=== PATIENT | female | born 1930 | race Caucasian/White ===

== ENCOUNTER → 2016-09-27 | Outpatient (CLI) | payer OTHER ==
[~2016-09-27] MED LIST: ALBUAER INH; AMLO-114 PO; AMOX500C3 PO; ASPI81TA28 PO; ATOR10TA88 PO; ATV5 PO; CALC-44 PO; CEFU1TAB36 PO; CLBCRM30 EXT; CLR10 PO; FERR1TAB13 PO; FERR325T5; FLUT0.15 NAE; FLUT1INH INH; FRRS300 PO; KETO0.0216 OP; KETO0.0216 OPB; LIDO2GEL8 TOP; LORA10TA5 PO; MCRK20 PO; METR0.757 PV; MTHH1 PO; OMEP20CA9 PO; PENT100C6 PO; PHEN-876 PO; PYRI100T4 PO; PYRI50TA77 PO; SIMV10TA2 PO; SPIR25TA PO; TELM80TA PO; TRAM-10 PO; ULT50X PO; VNTHFA/IN INH; ZNTT/150 PO; [UNRECOGNIZED DRUG - CODE] TOP; [UNRECOGNIZED DRUG - OTHER] TOP
--- NOTE | 2016-09-27 11:25 | DIAGNOSTIC IMAGING REPORT ---
ABDOMINAL ULTRASOUND, RIGHT UPPER QUADRANT HISTORY: Generalized abdominal pain.. COMPARISON: Abdominal ultrasound 12/23/2012. Abdomen and pelvis CT 08/20/2012. FINDINGS: Pancreas: The pancreatic head is obscured by overlying bowel gas. The remaining portions of the pancreas are within normal limits. Liver: There are 2 subcentimeter cysts, unchanged. No new hepatic masses. Gallbladder: No gallbladder wall thickening. No gallstones. CBD: 4 mm. Right kidney: No hydronephrosis. Peripelvic cysts are again noted. IMPRESSION: No significant change compared to the prior study. Normal gallbladder. No gallstones. Electronically signed by: Ken Griggs M.D. 09/27/2016 11:23 AM Dictated Date/Time: 09/27/2016 11:20 AM
== END | disposition home or self-care (01) ==
LOC: C.ULTR 10:17
PROVIDERS: ATTEND Nurse Practitioner
DX: R10.11 Right upper quadrant pain (principal)

== ENCOUNTER → 2016-10-17 | Outpatient (CLI) | payer OTHER ==
[2016-10-17 12:46] LABS: BLOOD UREA NITROGEN 16 mg/dl (7-18); BUN/CREATININE RATIO 18.6 (10-20); CALCIUM 8.7 mg/dl (8.5-10.1); CARBON DIOXIDE 28 mmol/L (21-32); CHLORIDE 106 mmol/L (98-107); CHOLESTEROL 148 mg/dl (0-200); CREATININE 0.88 mg/dl (0.60-1.20); GLUCOSE 94 mg/dl (70-99); POTASSIUM 4.2 mmol/L (3.5-5.1); SODIUM 141 mmol/L (136-145)
[2016-10-17 12:49] LABS: CHOLESTEROL/HDL RATIO 3.1; HDL CHOLESTEROL 48 mg/dl; LDL CHOLESTEROL CALCULATED 80 mg/dl; TRIGLYCERIDES 101 mg/dl (0-150); VERY LOW DENSITY LIPOPROT CALC 20 mg/dl
[2016-10-17 13:55] LABS: ESTIMATED AVERAGE GLUCOSE 120 mg/dl; HA1C FLAG Normal (Normal)
== END | disposition home or self-care (01) ==
LOC: C.LABBFT 08:35
PROVIDERS: ATTEND Internal Medicine
DX: I10 Essential (primary) hypertension (principal); E78.00 Pure hypercholesterolemia, unspecified; R73.01 Impaired fasting glucose

== ENCOUNTER → 2016-10-29 | Day surgery (SDC) | payer OTHER ==
[2016-10-22 09:01] VITALS: BMI 24.0
[~2016-10-29] VITALS: Ht 160 cm; Wt 63.6 kg
[~2016-10-29] MED LIST changes: +ENDOSCOPIC MARKER 5 ML SYR ONE; +LIDOCAINE HCL 2% 2 ML VIAL (20MG/ML) ONE; -LORA10TA5 PO; +PROPOFOL IV EMULSION 10 MG/ML 20 ML VIAL IV ONE; +SODIUM CHLORIDE 0.9% 500ML 500 ML IV ONE
[2016-10-29 12:16] VITALS: Ht 160 cm; Wt 63.6 kg
[2016-10-29 12:28] VITALS: TEMP 36.6
--- NOTE | 2016-10-29 13:02 | Endo History and Physical ---
History & Physical Date of Service: Oct 29, 2016. Chief Complaint: COLON MASS Referring Physician: DR. CHARLENE COLON History of Present Illness 86 yo CF who presents for colonoscopy secondary to colon mass. Past Medical History Arthritis, Reflux, Cancer, High Cholesterol, Hypertension Past Surgical History Hx Cardiac Surgery: No Hx Internal Defibrillator: No Hx Pacemaker: No Hx Abdominal Surgery: Yes (CYST REMOVAL FROM UTERUS) Hx of Implantable Prosthesis: No Hx Post-Op Nausea and Vomiting: No Hx Cancer Surgery: Yes (SKIN CANCER REMOVAL) Hx Thoracic Surgery: No Hx Orthopedic: No Hx Urinary Tract Surgery: No Family History Polyp Social History Smoking Status: Never Smoker Hx Substance Use: No Hx Alcohol Use: No Allergies Coded Allergies: Diltiazem (Verified Allergy, Severe, TIGHTENING OF THROAT, 10/22/16) Hydralazine (Verified Allergy, Intermediate, RASH, 10/22/16) Azithromycin (Verified Allergy, Mild, PT UNSURE, 10/22/16) Hydrocodone (Verified Allergy, Mild, GI UPSET, 10/22/16) Meperidine (Verified Allergy, Mild, GI UPSET, 10/22/16) Prochlorperazine (Verified Allergy, Mild, "BODY SHAKES", 10/22/16) Acetaminophen (Verified Allergy, Unknown, GI SYMPTOMS, 10/29/16) Ciprofloxacin (Verified Allergy, Unknown, GI SYMPTOMS, 10/29/16) Hydrochlorothiazide (Verified Allergy, Unknown, DYSURIA, 10/22/16) Losartan (Verified Allergy, Unknown, JITTERY,SJAKEY, 10/22/16) Nifedipine (Verified Allergy, Unknown, EXACERBATION INTERSTITIAL CYCSTITIS , 10/22/16) Nitrofurantoin (Verified Allergy, Unknown, RASH, 10/22/16) Quinine (Verified Allergy, Unknown, PT UNSURE, 10/22/16) Sulfa Drugs (Verified Allergy, Unknown, PT UNSURE, 10/22/16) Terazosin (Verified Allergy, Unknown, LIGHTHEADEDNESS AND NAUSEA, 10/22/16) Quinolones (Verified Adverse Reaction, Intermediate, CIPRO- NAUSEA, NERVOUS, CHILLS, 10/22/16) Metronidazole (Verified Adverse Reaction, Mild, STOMACH PAIN, 10/22/16) Simvastatin (Verified Adverse Reaction, Mild, STOMACH PAIN, 10/22/16) Beta Adrenergic Blockers (Verified Adverse Reaction, Unknown, "Secondary AVB", 10/22/16) Lisinopril (Verified Adverse Reaction, Unknown, "INTOLERANCE" PER DR COLON, 10/22/16) Methenamine (Verified Adverse Reaction, Unknown, STOMACH PAIN, 10/22/16) Phenothiazines (Verified Adverse Reaction, Unknown, SHAKEY, 10/22/16) Valdecoxib (Verified Adverse Reaction, Unknown, GI SYMPTOMS, 10/22/16) Uncoded Allergies: METHENAMIN HIPPURATE (Allergy, Unknown, GI SYMPTOMS, 09/05/15) Current Medications Reported Home Medications Medications Dose Route/Sig Max Daily Dose Days Date Category Zantac (Ranitidine HCl) 150 Mg Tab 150 Mg PO DAILY PRN 10/22/16 Reported Aspirin Ec (Aspirin) 81 Mg Tab 81 Mg PO 3XWK 10/22/16 Reported Proventil Hfa (Albuterol Sulfate) 108 Mcg/Act Aer 2 Puffs INH QID PRN 10/22/16 Reported Breo Ellipta (Fluticasone Furoate-Vilanterol) 1 Inh Inh 1 Puff INH DAILY PRN 10/22/16 Reported Metronidazole Vaginal (Metronidazole HCl) 5 Appln/70 Gm Gel 1 Appl TOP QAM 10/22/16 Reported Prelief (Calcium Glycerophosphate) 1 Tab Tab 1 Tab PO UD 10/22/16 Reported Claritin (Loratadine) 10 Mg Tab 10 Mg PO DAILY PRN 10/22/16 Reported Aldactone (Spironolactone) 25 Mg Tab 25 Mg PO QAM 10/22/16 Reported Zaditor 0.025% Oph (Ketotifen Fumarate) Soln 1 Drop OPB HS 09/01/15 Reported Clobetasol Propionate Cream 0.05% (Clobetasol Propionate) 90 Appln/30 Gm Cr 1 Appln EXT HS 09/01/15 Reported Vitamin B 6 (Pyridoxine Hcl) 50 Mg Tab 1 Tab PO QPM 09/01/15 Reported Prilosec (Omeprazole) 20 Mg Cap 20 Mg PO QAM 05/08/15 Reported Norvasc (Amlodipine Besylate) 10 Mg Tab 10 Mg PO QAM 05/08/15 Reported Elmiron (Pentosan Polysulfate Sodium) 100 Mg Cap 100 Mg PO BID 05/08/15 Reported Lipitor (Atorvastatin Calcium) 10 Mg Tab 10 Mg PO HS 08/20/12 Reported Micardis (Telmisartan) 80 Mg Tab 80 Mg PO QAM 08/20/12 Reported Vital Signs Weight (Kilograms): 63.64 Height (Feet): 5 Height (Inches): 3 Date Time Temp Pulse Resp B/P Pulse Ox O2 Delivery O2 Flow Rate FiO2 10/29/16 12:28 36.6 79 16 188/65 98 Room Air Physical Exam General Appearance: WD/WN, no apparent distress Respiratory/Chest: Auscultation: breath sounds normal Cardiovascular: Heart Auscultation: RRR Abdomen: Bowel Sounds: normal Inspection & Palpation: soft, non-distended, no tenderness, guarding & rebound Assessment and Plan Assessment: 86 yo CF who presents for colonoscopy secondary to colon mass. Plan: Proceed with colonoscopy.
--- NOTE | 2016-10-29 13:32 | Discharge Instructions ---
Endoscopy Patient Instructions Date / Procedure(s) Performed Oct 29, 2016. Colonoscopy Allergy Information Coded Allergies: Diltiazem (Verified Allergy, Severe, TIGHTENING OF THROAT, 10/22/16) Hydralazine (Verified Allergy, Intermediate, RASH, 10/22/16) Azithromycin (Verified Allergy, Mild, PT UNSURE, 10/22/16) Hydrocodone (Verified Allergy, Mild, GI UPSET, 10/22/16) Meperidine (Verified Allergy, Mild, GI UPSET, 10/22/16) Prochlorperazine (Verified Allergy, Mild, "BODY SHAKES", 10/22/16) Acetaminophen (Verified Allergy, Unknown, GI SYMPTOMS, 10/29/16) Ciprofloxacin (Verified Allergy, Unknown, GI SYMPTOMS, 10/29/16) Hydrochlorothiazide (Verified Allergy, Unknown, DYSURIA, 10/22/16) Losartan (Verified Allergy, Unknown, JITTERY,SJAKEY, 10/22/16) Nifedipine (Verified Allergy, Unknown, EXACERBATION INTERSTITIAL CYCSTITIS , 10/22/16) Nitrofurantoin (Verified Allergy, Unknown, RASH, 10/22/16) Quinine (Verified Allergy, Unknown, PT UNSURE, 10/22/16) Sulfa Drugs (Verified Allergy, Unknown, PT UNSURE, 10/22/16) Terazosin (Verified Allergy, Unknown, LIGHTHEADEDNESS AND NAUSEA, 10/22/16) Quinolones (Verified Adverse Reaction, Intermediate, CIPRO- NAUSEA, NERVOUS, CHILLS, 10/22/16) Metronidazole (Verified Adverse Reaction, Mild, STOMACH PAIN, 10/22/16) Simvastatin (Verified Adverse Reaction, Mild, STOMACH PAIN, 10/22/16) Beta Adrenergic Blockers (Verified Adverse Reaction, Unknown, "Secondary AVB", 10/22/16) Lisinopril (Verified Adverse Reaction, Unknown, "INTOLERANCE" PER DR COLON, 10/22/16) Methenamine (Verified Adverse Reaction, Unknown, STOMACH PAIN, 10/22/16) Phenothiazines (Verified Adverse Reaction, Unknown, SHAKEY, 10/22/16) Valdecoxib (Verified Adverse Reaction, Unknown, GI SYMPTOMS, 10/22/16) Uncoded Allergies: METHENAMIN HIPPURATE (Allergy, Unknown, GI SYMPTOMS, 09/05/15) Discharge Date / Findings Oct 29, 2016. Colon mass at Hepatic flexure s/p tattoo and biopsies Medication Instructions Stopped Medication(s): STOPPED ALL MEDICATIONS EXCEPT PRILOSEC AND 2 BLOOD PRESSURE MEDICATIONS. OK to resume all medications today as prescribed. Reported Home Medications Medications Dose Route/Sig Max Daily Dose Days Date Category Zantac (Ranitidine HCl) 150 Mg Tab 150 Mg PO DAILY PRN 10/22/16 Reported Aspirin Ec (Aspirin) 81 Mg Tab 81 Mg PO 3XWK 10/22/16 Reported Proventil Hfa (Albuterol Sulfate) 108 Mcg/Act Aer 2 Puffs INH QID PRN 10/22/16 Reported Breo Ellipta (Fluticasone Furoate-Vilanterol) 1 Inh Inh 1 Puff INH DAILY PRN 10/22/16 Reported Metronidazole Vaginal (Metronidazole HCl) 5 Appln/70 Gm Gel 1 Appl TOP QAM 10/22/16 Reported Prelief (Calcium Glycerophosphate) 1 Tab Tab 1 Tab PO UD 10/22/16 Reported Claritin (Loratadine) 10 Mg Tab 10 Mg PO DAILY PRN 10/22/16 Reported Aldactone (Spironolactone) 25 Mg Tab 25 Mg PO QAM 10/22/16 Reported Zaditor 0.025% Oph (Ketotifen Fumarate) Soln 1 Drop OPB HS 09/01/15 Reported Clobetasol Propionate Cream 0.05% (Clobetasol Propionate) 90 Appln/30 Gm Cr 1 Appln EXT HS 09/01/15 Reported Vitamin B 6 (Pyridoxine Hcl) 50 Mg Tab 1 Tab PO QPM 09/01/15 Reported Prilosec (Omeprazole) 20 Mg Cap 20 Mg PO QAM 05/08/15 Reported Norvasc (Amlodipine Besylate) 10 Mg Tab 10 Mg PO QAM 05/08/15 Reported Elmiron (Pentosan Polysulfate Sodium) 100 Mg Cap 100 Mg PO BID 05/08/15 Reported Lipitor (Atorvastatin Calcium) 10 Mg Tab 10 Mg PO HS 08/20/12 Reported Micardis (Telmisartan) 80 Mg Tab 80 Mg PO QAM 08/20/12 Reported Provider Instructions Activity Restrictions - No exercising or heavy lifting for 24 hours. - Do not drink alcohol the day of the procedure. - Do not drive a car or operate machinery until the day after the procedure. - Do not make any important decisions or sign important papers in 24 hours after the procedure. Following Day: - Return to full activity which may include returning to work/school. Diet Start your diet with liquids and light foods (jello, soup, juice, toast). Then eat your usual diet if not nauseated. Treatment For Common After Affects For mild abdominal pain, bloating, or excessive gas: - Rest - Eat lightly - Lie on right side Follow-Up Information Follow-up with DR. CHARLENE COLON as scheduled Anesthesia Information What You Should Know You have had a procedure that required some medicine to reduce anxiety and discomfort. This treatment is called moderate sedation. After receiving the treatment, you may be sleepy, but you will be able to breathe on your own. The effects of the treatment may last for several hours. Follow these instructions along with Activity/Diet recommendations noted above: * Do NOT do anything where dizziness or clumsiness would be dangerous. * Rest quietly at home today, then you can be up and about tomorrow. * Have a responsible person stay with you the rest of today. * You may have had an I.V. today. If so, you may take the dressing off later today. Recommendations Call your doctor if: * Trouble breathing * Continuous vomiting for more than 24 hours * Temperature above 101 degrees * Severe abdominal pain or bloating * Pain not relieved by pain medicine ordered * There is increased drainage or redness from any incision * A large amount of rectal bleeding greater than 2-3 tablespoons. (If you had a polyp/s removed or have hemorrhoids, a small amount of blood - from the rectum is to be expected.) * You have any unanswered questions or concerns. IN THE EVENT OF A SERIOUS EMERGENCY, GO TO THE NEAREST EMERGENCY ROOM Your discharge instructions were prepared by provider Jose Farias. Patient Instructions Signature Page Kadie Dean Patient (or Guardian) Signature/Date: I have read and understand the instructions given to me by my caregivers. Caregiver/RN/Doctor Signature/Date: The above-named patient and/or guardian has received patient instructions on this date. + Original Patient Signature Page (only) stays with chart. Please make copy for patient.
--- NOTE | 2016-10-29 13:41 | GI REPORT ---
Procedure Date: 10/29/2016 1:02 PM Procedure: Colonoscopy Indications: Abnormal CT of the GI tract Medicines: Monitored Anesthesia Care Complications: No immediate complications. Estimated Blood Loss: Estimated blood loss: none. Procedure: Pre-Anesthesia Assessment: - Prior to the procedure, a History and Physical was performed, and patient medications and allergies were reviewed. The patient's tolerance of previous anesthesia was also reviewed. The risks and benefits of the procedure and the sedation options and risks were discussed with the patient. All questions were answered, and informed consent was obtained. Prior Anticoagulants: The patient has taken aspirin, last dose was 7 days prior to procedure. ASA Grade Assessment: II - A patient with mild systemic disease. After reviewing the risks and benefits, the patient was deemed in satisfactory condition to undergo the procedure. After I obtained informed consent, the scope was passed under direct vision. Throughout the procedure, the patient's blood pressure, pulse, and oxygen saturations were monitored continuously. The scope was introduced through the anus and advanced to the terminal ileum. The colonoscopy was performed without difficulty. The patient tolerated the procedure well. The quality of the bowel preparation was good. The ileocecal valve, appendiceal orifice, and rectum were photographed. Findings: An infiltrative non-obstructing large mass was found at the hepatic flexure. The mass was circumferential. The mass measured six cm in length. In addition, its diameter measured twenty-five mm. Oozing was present. Biopsies were taken with a cold forceps for histology. Area was tattooed with an injection of 5 mL of Poppy ink. Non-bleeding internal hemorrhoids were found during retroflexion. The hemorrhoids were small. 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 Biopsied. Tattooed. - Non-bleeding internal hemorrhoids. Recommendation: - Resume previous diet. - Continue present medications. - Return to primary care physician as previously scheduled. Jose Farias, DO 10/29/2016 1:40:47 PM This report has been signed electronically. Note Initiated On: 10/29/2016 1:02 PM I attest to the content of the Intraoperative Record and orders documented therein, exceptions below
[2016-10-29 14:01] VITALS: BP 163/69; PULSE 82; O2SAT 99
--- NOTE | 2016-10-29 14:01 | Anesthesiology Progress Note ---
Anesthesia Post Op Note Date & Time Oct 29, 2016 at 14:01 Vital Signs Pain Intensity: 0 Vital Signs Past 12 Hours Date Time Temp Pulse Resp B/P Pulse Ox O2 Delivery O2 Flow Rate FiO2 10/29/16 13:47 71 16 103/51 100 Room Air 10/29/16 13:36 77 16 115/47 98 Room Air 10/29/16 12:28 36.6 79 16 188/65 98 Room Air Notes Mental Status: alert / awake / arousable, participated in evaluation Pt Amnestic to Procedure: Yes Nausea / Vomiting: adequately controlled Pain: adequately controlled Airway Patency, RR, SpO2: stable & adequate BP & HR: stable & adequate Hydration State: stable & adequate Anesthetic Complications: no major complications apparent
== END | disposition home or self-care (01) ==
LOC: C.GI 11:52
PROVIDERS: ATTEND Internal Medicine
DX: D49.0 Neoplasm of unspecified behavior of digestive system (principal); K64.8 Other hemorrhoids; K21.9 Gastro-esophageal reflux disease without esophagitis; E78.00 Pure hypercholesterolemia, unspecified; I10 Essential (primary) hypertension; M19.90 Unspecified osteoarthritis, unspecified site; Z88.2 Allergy status to sulfonamides; Z85.828 Personal history of other malignant neoplasm of skin; Z83.71 Family history of colonic polyps

== ENCOUNTER → 2016-11-07 | Outpatient (CLI) | payer OTHER ==
[~2016-11-07] MED LIST changes: -ENDOSCOPIC MARKER 5 ML SYR ONE; -LIDOCAINE HCL 2% 2 ML VIAL (20MG/ML) ONE; -PROPOFOL IV EMULSION 10 MG/ML 20 ML VIAL IV ONE; -SODIUM CHLORIDE 0.9% 500ML 500 ML IV ONE
== END | disposition home or self-care (01) ==
LOC: C.LABBFT 11:38
PROVIDERS: ATTEND Nurse Practitioner Adult Health
DX: J32.9 Chronic sinusitis, unspecified (principal); R39.9 Unspecified symptoms and signs involving the genitourinary system

== ENCOUNTER → 2016-11-09 | Outpatient (CLI) | payer OTHER | END | disposition home or self-care (01) | LOC: C.LABBFT 11:55 | PROVIDERS: ATTEND Nurse Practitioner Family | DX: N39.0 Urinary tract infection, site not specified (principal); R30.0 Dysuria ==

== ENCOUNTER 2016-11-14 10:07 | Emergency (ER) | payer OTHER ==
[~2016-11-14] VITALS: Ht 165.1 cm; Wt 62.3 kg
[~2016-11-14 10:07] MED LIST changes: -AMLO-114 PO; -AMOX500C3 PO; -ATOR10TA88 PO; -ATV5 PO; -CALC-44 PO; -CEFU1TAB36 PO; -CLBCRM30 EXT; -CLR10 PO; -FERR1TAB13 PO; -FERR325T5; -FLUT0.15 NAE; -FLUT1INH INH; -FRRS300 PO; -KETO0.0216 OP; -LIDO2GEL8 TOP; -MCRK20 PO; -METR0.757 PV; -MTHH1 PO; -OMEP20CA9 PO; -PENT100C6 PO; -PHEN-876 PO; -PYRI100T4 PO; -PYRI50TA77 PO; -SIMV10TA2 PO; -TELM80TA PO; -TRAM-10 PO; -ULT50X PO; -VNTHFA/IN INH; -[UNRECOGNIZED DRUG - CODE] TOP
[2016-11-14 10:20] VITALS: TEMP 36.9; Ht 165.1 cm; Wt 62.3 kg
--- NOTE | 2016-11-14 11:03 | EMERGENCY ROOM VISIT NOTE ---
History Report prepared by Jeremy: Mi Eastman Under the Supervision of: Dr. Tabatha Tripp M.D. 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 Her discomfort is a 9/10 in severity. She states that she has burning when she is and is not urinating. She states that it also feels raw. She feels that she may have a vaginal infection. Denies fever, vaginal discharge, or other complaints. She does have an appointment with Dr. Mallory of gynecology on Saturday , but wanted treatment sooner. She has a history of lichen planus for which she uses topical cream. 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 A total of 10 systems reviewed and were otherwise negative. Past Medical & Surgical Medical Problems: (1) HTN (hypertension) Surgical Problems: (1) Hx of cervical polypectomy Family History FHx: cancer Hypertension Social History Smoking Status: Never Smoker Alcohol Use: none Drug Use: none Marital Status: Housing Status: lives with significant other Occupation Status: retired Current/Historical Medications Scheduled Amlodipine (Norvasc), 10 MG PO QAM Atorvastatin (Lipitor), 10 MG PO HS Calcium Glycerophosphate (Prelief), 1 TAB PO UD Clobetasol Propionate (Clobetasol Propionate Cream 0.05%), 1 APPLN EXT HS Ketotifen Fumarate (Ophth) (Zaditor 0.025% Oph), 1 DROP OP Q12H Omeprazole (Prilosec), 20 MG PO QAM Pentosan Polysulfate Sodium (Elmiron), 100 MG PO BID Pyridoxine Hcl (Vitamin B 6), 1 TAB PO QPM Telmisartan (Micardis), 80 MG PO QAM Scheduled PRN Fluticasone Furoate-Vilanterol (Breo Ellipta), 1 PUFF INH DAILY PRN for Shortness of Breath Lidocaine Hcl (Lidocaine Hcl), 1 APPLN TOP BID PRN for Itching Loratadine (Claritin), 10 MG PO DAILY PRN for PRN Allergies Coded Allergies: Diltiazem (Verified Allergy, Severe, TIGHTENING OF THROAT, 11/14/16) Hydralazine (Verified Allergy, Intermediate, RASH, 11/14/16) Azithromycin (Verified Allergy, Mild, PT UNSURE, 11/14/16) Hydrocodone (Verified Allergy, Mild, GI UPSET, 11/14/16) Meperidine (Verified Allergy, Mild, GI UPSET, 11/14/16) Prochlorperazine (Verified Allergy, Mild, "BODY SHAKES", 11/14/16) Acetaminophen (Verified Allergy, Unknown, GI SYMPTOMS, 11/14/16) Ciprofloxacin (Verified Allergy, Unknown, GI SYMPTOMS, 11/14/16) Hydrochlorothiazide (Verified Allergy, Unknown, DYSURIA, 11/14/16) Losartan (Verified Allergy, Unknown, JITTERY,SJAKEY, 11/14/16) Nifedipine (Verified Allergy, Unknown, EXACERBATION INTERSTITIAL CYCSTITIS , 11/14/16) Nitrofurantoin (Verified Allergy, Unknown, RASH, 11/14/16) Quinine (Verified Allergy, Unknown, PT UNSURE, 11/14/16) Spironolactone (Verified Allergy, Unknown, ., 11/14/16) Sulfa Drugs (Verified Allergy, Unknown, PT UNSURE, 11/14/16) Terazosin (Verified Allergy, Unknown, LIGHTHEADEDNESS AND NAUSEA, 11/14/16) Quinolones (Verified Adverse Reaction, Intermediate, CIPRO- NAUSEA, NERVOUS, CHILLS, 11/14/16) Metronidazole (Verified Adverse Reaction, Mild, STOMACH PAIN, 11/14/16) Simvastatin (Verified Adverse Reaction, Mild, STOMACH PAIN, 11/14/16) Beta Adrenergic Blockers (Verified Adverse Reaction, Unknown, "Secondary AVB", 11/14/16) Lisinopril (Verified Adverse Reaction, Unknown, "INTOLERANCE" PER DR COLON, 11/14/16) Methenamine (Verified Adverse Reaction, Unknown, STOMACH PAIN, 11/14/16) Phenothiazines (Verified Adverse Reaction, Unknown, SHAKEY, 11/14/16) Valdecoxib (Verified Adverse Reaction, Unknown, GI SYMPTOMS, 11/14/16) Physical Exam Vital Signs Date Time Temp Pulse Resp B/P Pulse Ox O2 Delivery O2 Flow Rate FiO2 11/14/16 12:23 87 16 130/69 97 11/14/16 11:56 87 16 130/69 97 11/14/16 10:20 36.9 95 18 161/70 96 Room Air Physical Exam Vital signs reviewed. General: Elderly, well-appearing 86 year old female, in no significant distress. HEENT: No scleral icterus, PERRLA, neck supple. Atraumatic. Cardiovascular: Regular rate and rhythm, no extra sounds. Pulmonary: Clear to auscultation bilaterally, normal work of breathing. Abdomen: Soft, nontender, nondistended, positive bowel sounds. Pelvic: Dry vaginal wall, no excoriations or ulcerations appreciated, appreciable white adherent discharge with clear lotion visualized. Musculoskeletal: Atraumatic, no peripheral edema. Neurologic: Patient awake alert and oriented x 3 Skin: Warm, dry, no rash Medical Decision & Procedures Laboratory Results Test 11/14/16 10:25 Urine Color YELLOW Urine Appearance CLEAR (CLEAR) Urine pH 5.0 (4.5-7.5) Urine Specific [place] 1.015 (1.000-1.030) Urine Protein NEG (NEG) Urine Glucose (UA) NEG (NEG) Urine Ketones NEG (NEG) Urine Occult Blood 1+ (NEG) Urine Nitrite NEG (NEG) Urine Bilirubin NEG (NEG) Urine Urobilinogen NEG (NEG) Urine Leukocyte Esterase TRACE (NEG) Urine WBC (Auto) 1-5 /hpf (0-5) Urine RBC (Auto) 0-4 /hpf (0-4) Urine Hyaline Casts (Auto) 1-5 /lpf (0-5) Urine Epithelial Cells (Auto) 20-30 /lpf (0-5) Urine Bacteria (Auto) NEG (NEG) Date/Time Source Procedure Growth Status 11/14/16 11:35 Vaginal Swab Trichomonas Preparation - Final Complete Laboratory results per my review. ED Course 1057: The patient was evaluated in room A10. A complete history and physical examination was performed. 1146: I discussed the case with Dr. Anderson - [facility] [place] Intermediate Project Manager. She requested stopping the patient's current medications and starting her on lidocaine jelly. 1151: Upon reevaluation, the patient was comfortable. I discussed findings with her. She verbalized agreement of the treatment plan. The patient was discharged home. Medical Decision Differentials include yeast vaginitis, atrophic vaginitis, steroid dermatitis, allergic reaction. This patient was evaluated and appeared to be in no significant distress. Physical examination reveals an irritated vaginal wall. There is a white chunky material and a clear gel in the vaginal vault. The patient has been using 2 different topical medications daily. Vaginal swabs were obtained. I did discuss the case with Dr. Anderson of CLINICAL ANALYST. She has suggested stopping the current treatments, one being a steroid, and using lidocaine gel twice a day as needed. Lab called and stated there were many yeast cells noted on the vaginal cultures. The patient was placed on Terazol 7. She will follow-up with CLINICAL ANALYST next week for reevaluation. She will return to the ER for worsening of symptoms or any medical concerns. Consults Time Called: 1140 Consulting Physician: Dr. Anderson - [facility] [place] Intermediate Project Manager Returned Call: [phone] I discussed the case with her. She requested stopping the patient's current medications and starting her on lidocaine jelly. Impression Primary Impression: Yeast vaginitis Additional Impression: Vaginal irritation Scribe Attestation The scribe's documentation has been prepared under my direction and personally reviewed by me in its entirety. I confirm that the note above accurately reflects all work, treatment, procedures, and medical decision making performed by me. Departure Information Dispostion Home / Self-Care Prescriptions Lidocaine Hcl (LIDOCAINE HCL) 2 % Gel 1 APPLN TOP BID Y for Itching, #15 GM 0 Refills Prov: Tabatha Tripp M.D. 11/14/16 Referrals No Doctor, Assigned (PCP) Patient Instructions My [facility] Additional Instructions Diagnosis: Vaginal irritation Please stop your topical medications. Use [place] lubricating ointment twice daily. Use lidocaine jelly (pea sized amount) topically as needed twice daily. Follow-up with Dr. Mallory on Saturday as scheduled. Return to the emergency department for worsening of symptoms or any medical concerns. Problem Qualifiers
[2016-11-14 11:25] LABS: URINE APPEARANCE CLEAR (CLEAR); URINE BILIRUBIN NEG (NEG); URINE COLOR YELLOW; URINE EPITHELIAL CELL AUTO 20-30 /lpf (0-5); URINE NITRITE NEG (NEG); URINE SPECIFIC GRAVITY 1.015 (1.000-1.030); UROBILINOGEN NEG (NEG); ZZUR CULT IF INDIC CLEAN CATCH NO
[2016-11-14 11:29] LABS: MANUAL MICROSCOPIC REQUIRED? NO; REVIEW REQ? NO
[2016-11-14] MEDS ORDERED: LIDO2GEL8 TOP (12:14)
[2016-11-14 12:23] VITALS: BP 130/69; PULSE 87; O2SAT 97
--- NOTE | 2016-11-14 15:49 | Pharmacy Progress Note ---
ED Pharmacist Progress Note Date of Service: Nov 14, 2016. Prescription for Terazol-7 0.4% vaginal cream 1 applicatorful intravaginally qhs x7 days called to [facility] at the request of Dr. Tripp, who is the prescribing provider. Patient informed and aware.
[2016-12-01] MEDS ORDERED: TELM80TA PO (04:49)
[2016-12-01] MEDS ORDERED: ATOR10TA88 PO (04:50)
[2016-12-01] MEDS ORDERED: CLBCRM30 EXT (08:05)
[2016-12-01] MEDS ORDERED: PYRI50TA77 PO (08:05)
[2016-12-01] MEDS ORDERED: CLR10 PO (08:57)
[2016-12-01] MEDS ORDERED: CALC-44 PO (08:57)
[2016-12-01] MEDS ORDERED: FLUT1INH INH (08:57)
[2016-12-01] MEDS ORDERED: KETO0.0216 OP (10:58)
[2016-12-01] MEDS ORDERED: AMLO-114 PO (14:33)
[2016-12-01] MEDS ORDERED: OMEP20CA9 PO (14:33)
[2016-12-01] MEDS ORDERED: PENT100C6 PO (14:33)
[2016-12-06] MEDS ORDERED: CEFU1TAB36 PO (15:24)
[2016-12-06] MEDS ORDERED: PENT100C6 PO (15:29)
[2016-12-06] MEDS ORDERED: CALC-44 PO (15:29)
[2016-12-06] MEDS ORDERED: PYRI100T4 PO (15:29)
[2016-12-06] MEDS ORDERED: FLUT0.15 NAE (15:29)
[2016-12-06] MEDS ORDERED: CLR10 PO (15:31)
[2017-01-16] MEDS ORDERED: SIMV10TA2 PO (10:10)
[2017-01-16] MEDS ORDERED: TRAM-10 PO (10:14)
[2017-04-29] MEDS ORDERED: CLR10 PO (12:55)
[2017-04-29] MEDS ORDERED: PHEN-876 PO (12:55)
[2017-04-29] MEDS ORDERED: PENT100C6 PO (12:55)
[2017-04-29] MEDS ORDERED: ATOR10TA88 PO (12:55)
[2017-04-29] MEDS ORDERED: FERR1TAB13 PO (12:55)
[2017-04-29] MEDS ORDERED: MTHH1 PO (12:55)
== END 2016-11-14 12:30 | disposition home or self-care (01) ==
LOC: C.EDB 10:09 → C.EDA 12:30
DX: N76.0 Acute vaginitis (principal); N89.8 Other specified noninflammatory disorders of vagina; I10 Essential (primary) hypertension; Z82.49 Family history of ischemic heart disease and other diseases of the circulatory system

== ENCOUNTER 2016-12-01 20:57 | Emergency (ER) | payer OTHER ==
[~2016-12-01] VITALS: Ht 160 cm; Wt 63.5 kg
[~2016-12-01 20:57] MED LIST changes: -ALBUAER INH; +AMLO-114 PO; -ASPI81TA28 PO; +ATOR10TA88 PO; +CALC-44 PO; +CLBCRM30 EXT; +CLR10 PO; +FLUT1INH INH; +KETO0.0216 OP; -KETO0.0216 OPB; +LIDO2GEL8 TOP; +OMEP20CA9 PO; +PENT100C6 PO; +PYRI50TA77 PO; -SPIR25TA PO; +TELM80TA PO; -ZNTT/150 PO; -[UNRECOGNIZED DRUG - OTHER] TOP
[2016-12-01 21:01] VITALS: TEMP 37.4; Ht 160 cm; Wt 63.5 kg
[2016-12-01 22:19] LABS: URINE APPEARANCE CLEAR (CLEAR); URINE BILIRUBIN NEG (NEG); URINE COLOR DK YELLOW; URINE NITRITE POS (NEG); URINE PH 5.5 (4.5-7.5); UROBILINOGEN NEG (NEG); ZZUR CULT IF INDIC CLEAN CATCH NO
[2016-12-01 22:25] LABS: MANUAL MICROSCOPIC REQUIRED? YES; REVIEW REQ? NO
[2016-12-01 22:36] LABS: URINE BACTERIA NEG (NEG); URINE RBC 0-4 /hpf (0-4)
[2016-12-01] MEDS ORDERED: VNTHFA/IN INH (22:48)
[2016-12-01] MEDS ORDERED: [UNRECOGNIZED DRUG - CODE] TOP (22:48)
[2016-12-01 23:03] VITALS: BP 136/64; PULSE 83; O2SAT 95
[2016-12-01] MEDS ORDERED: AMOXICILLIN 250 MG CAP PO STA (23:07)
[2016-12-01] MEDS ORDERED: AMOX500C3 PO (23:19)
--- NOTE | 2016-12-01 23:24 | EMERGENCY ROOM VISIT NOTE ---
History Report prepared by Jeremy: Darian Snider Under the Supervision of: Dr. Lavelle Corrigan D.O. First contact with patient: 21:46 Chief Complaint: URINARY SYMPTOMS Stated Complaint: BRUNING HIGH TEMP Nursing Triage Summary: had had urine problems fro a week was her last week for same. burning with urgency is getting worse last 3 days History of Present Illness The patient is an 86 year old female who presents to the Emergency Room with complaints of persistent burning with urination beginning one week prior to arrival. She currently rates her discomfort as a 9/10 in severity. The patient associates increased urgency to urinate and a fever with today's symptoms. She states her fever began today and was 99.7 F. The patient notes she took Pyridium at 1330 to relieve the burning after calling her urologist. She states she was not able to see her urologist for another two days. The patient notes she follows with her urologist for her interstitial cystitis. The patient denies back pain, nausea, and vomiting. Source of History: patient Onset: one week MANAGER MOBILE Position: other (global) Symptom Intensity: 9/10 Quality: other (burning with urination) Timing: other (persistent) Modifying Factors (Relieving): other (Pyridium) Associated Symptoms: + fevers, + urinary symptoms (increased frequency), No back pain, No nausea, No vomiting Review of Systems See HPI for pertinent positives & negatives. A total of 10 systems reviewed and were otherwise negative. Past Medical & Surgical Medical Problems: (1) HTN (hypertension) (2) Interstitial cystitis Surgical Problems: (1) Hx of cervical polypectomy Family History FHx: cancer Hypertension Social History Smoking Status: Never Smoker Alcohol Use: none Drug Use: none Marital Status: Housing Status: lives with significant other Occupation Status: retired Current/Historical Medications Scheduled Amlodipine (Norvasc), 10 MG PO QAM Amoxicillin (Amoxil), 500 MG PO TID Atorvastatin (Lipitor), 10 MG PO HS Calcium Glycerophosphate (Prelief), 1 TAB PO UD Clobetasol Propionate (Clobetasol Propionate Cream 0.05%), 1 APPLN EXT HS Ketotifen Fumarate (Ophth) (Zaditor 0.025% Oph), 1 DROP OP Q12H Omeprazole (Prilosec), 20 MG PO QAM Pyridoxine Hcl (Vitamin B 6), 1 TAB PO QPM Telmisartan (Micardis), 80 MG PO QAM Scheduled PRN Albuterol Hfa (Ventolin Hfa), 2 PUFF INH Q4 PRN for Shortness of Breath Fluticasone Furoate-Vilanterol (Breo Ellipta), 1 PUFF INH DAILY PRN for Shortness of Breath Lidocaine HCl (Lidocaine HCl Jelly), 1 APPLN TOP BID PRN for Pain Loratadine (Claritin), 10 MG PO DAILY PRN for PRN Pentosan Polysulfate Sodium (Elmiron), 100 MG PO BID PRN for Allergies Coded Allergies: Diltiazem (Verified Allergy, Severe, TIGHTENING OF THROAT, 12/01/16) Hydralazine (Verified Allergy, Intermediate, RASH, 12/01/16) Azithromycin (Verified Allergy, Mild, PT UNSURE, 12/01/16) Hydrocodone (Verified Allergy, Mild, GI UPSET, 12/01/16) Meperidine (Verified Allergy, Mild, GI UPSET, 12/01/16) Prochlorperazine (Verified Allergy, Mild, "BODY SHAKES", 12/01/16) Acetaminophen (Verified Allergy, Unknown, GI SYMPTOMS, 12/01/16) Ciprofloxacin (Verified Allergy, Unknown, GI SYMPTOMS, 12/01/16) Hydrochlorothiazide (Verified Allergy, Unknown, DYSURIA, 12/01/16) Losartan (Verified Allergy, Unknown, JITTERY,SJAKEY, 12/01/16) Nifedipine (Verified Allergy, Unknown, EXACERBATION INTERSTITIAL CYCSTITIS , 12/01/16) Nitrofurantoin (Verified Allergy, Unknown, RASH, 12/01/16) Quinine (Verified Allergy, Unknown, PT UNSURE, 12/01/16) Spironolactone (Verified Allergy, Unknown, ., 12/01/16) Sulfa Drugs (Verified Allergy, Unknown, PT UNSURE, 12/01/16) Terazosin (Verified Allergy, Unknown, LIGHTHEADEDNESS AND NAUSEA, 12/01/16) Quinolones (Verified Adverse Reaction, Intermediate, CIPRO- NAUSEA, NERVOUS, CHILLS, 12/01/16) Metronidazole (Verified Adverse Reaction, Mild, STOMACH PAIN, 12/01/16) Simvastatin (Verified Adverse Reaction, Mild, STOMACH PAIN, 12/01/16) Beta Adrenergic Blockers (Verified Adverse Reaction, Unknown, "Secondary AVB", 12/01/16) Lisinopril (Verified Adverse Reaction, Unknown, "INTOLERANCE" PER DR COLON, 12/01/16) Methenamine (Verified Adverse Reaction, Unknown, STOMACH PAIN, 12/01/16) Phenothiazines (Verified Adverse Reaction, Unknown, SHAKEY, 12/01/16) Valdecoxib (Verified Adverse Reaction, Unknown, GI SYMPTOMS, 12/01/16) Physical Exam Vital Signs Date Time Temp Pulse Resp B/P Pulse Ox O2 Delivery O2 Flow Rate FiO2 12/01/16 23:03 83 18 136/64 95 Room Air 12/01/16 21:01 37.4 106 20 149/109 97 Physical Exam CONSTITUTIONAL/VITAL SIGNS: Reviewed / noted above. GENERAL: Non-toxic in appearance. INTEGUMENTARY: Warm, dry, and [place]. HEAD: Normocephalic. EYES: without scleral icterus or trauma. ENT/OROPHARYNX: clear and moist. LYMPHADENOPATHY/NECK: Is supple without lymphadenopathy or meningismus. RESPIRATORY: Lungs clear and equal. CARDIOVASCULAR: Regular rate and rhythm. GI/ABDOMEN: Soft and nontender. No organomegaly or pulsatile mass. No rebound or guarding. Normal bowel sounds. EXTREMITIES: Warm and well perfused. BACK: No CVA tenderness. NEUROLOGICAL: Intact without focal deficits. PSYCHIATRIC: normal affect. MUSCULOSKELETAL: Normally developed with good muscle tone. Medical Decision & Procedures Laboratory Results Test 12/01/16 21:25 Urine Color DK YELLOW Urine Appearance CLEAR (CLEAR) Urine pH 5.5 (4.5-7.5) Urine Specific Juda 1.000 (1.000-1.030) Urine Protein NEG (NEG) Urine Glucose (UA) NEG (NEG) Urine Ketones NEG (NEG) Urine Occult Blood NEG (NEG) Urine Nitrite POS (NEG) Urine Bilirubin NEG (NEG) Urine Urobilinogen NEG (NEG) Urine Leukocyte Esterase TRACE (NEG) Urine WBC (Auto) /hpf (0-5) Urine RBC (Auto) /hpf (0-4) Urine Hyaline Casts (Auto) /lpf (0-5) Urine Epithelial Cells (Auto) /lpf (0-5) Urine Bacteria (Auto) (NEG) Urine RBC 0-4 /hpf (0-4) Urine WBC 1-5 /hpf (0-5) Urine Epithelial Cells 10-20 /lpf (0-5) Urine Bacteria NEG (NEG) Laboratory results as stated above per my review. ED Course 2147: Previous medical records were reviewed. The patient was evaluated in room A11B. A complete history and physical examination was performed. 2306: Ordered Amoxicillin 500 mg PO. 2324: On reevaluation, the patient is doing well. I discussed the results and findings with the patient. She verbalized agreement of the treatment plan. The patient was discharged home. Medical Decision Differential considered: pancreatitis, hepatitis, or acute cholecystitis, AAA, UTI, pyelonephritis, kidney stones, appendicitis, diverticulitis, shingles, bowel obstruction mesenteric ischemia, intussusception,hernia. This is a 86-year-old female who presents to the ED with a chief complaint of burning with urination and suprapubic pain. The patient reports a history of UTIs in the past. She denies any other complaints. She denies any fevers. No nausea vomiting. No flank pain. Urinalysis is positive for nitrite. This is suggestive of a possible UTI. The patient was treated with Bactrim here. She was discharged on a 3 day course of amoxicillin. Impression Primary Impression: Urinary tract infection Scribe Attestation The scribe's documentation has been prepared under my direction and personally reviewed by me in its entirety. I confirm that the note above accurately reflects all work, treatment, procedures, and medical decision making performed by me. Departure Information Dispostion Home / Self-Care Prescriptions Amoxicillin (AMOXIL) 500 Mg Cap 500 MG PO TID, #10 CAP Prov: Lavelle Corrigan D.O. 12/01/16 Referrals Shahnaz Major CRNP (PCP) Forms HOME CARE DOCUMENTATION FORM, IMPORTANT VISIT INFORMATION Patient Instructions My [facility], UTI Additional Instructions Amoxicillin as prescribed. Follow-up with your doctors for recheck. Return for fevers, vomiting or worsening symptoms.
[2016-12-06] MEDS ORDERED: CEFU1TAB36 PO (15:24)
[2016-12-06] MEDS ORDERED: PYRI100T4 PO (15:29)
[2016-12-06] MEDS ORDERED: FLUT0.15 NAE (15:29)
[2016-12-06] MEDS ORDERED: CALC-44 PO (15:29)
[2016-12-06] MEDS ORDERED: PENT100C6 PO (15:29)
[2016-12-06] MEDS ORDERED: CLR10 PO (15:31)
[2017-01-16] MEDS ORDERED: SIMV10TA2 PO (10:10)
[2017-01-16] MEDS ORDERED: TRAM-10 PO (10:14)
[2017-04-29] MEDS ORDERED: PHEN-876 PO (12:55)
[2017-04-29] MEDS ORDERED: FERR1TAB13 PO (12:55)
[2017-04-29] MEDS ORDERED: ATOR10TA88 PO (12:55)
[2017-04-29] MEDS ORDERED: MTHH1 PO (12:55)
[2017-04-29] MEDS ORDERED: PENT100C6 PO (12:55)
[2017-04-29] MEDS ORDERED: CLR10 PO (12:55)
== END 2016-12-01 23:32 | disposition home or self-care (01) ==
LOC: C.EDB 20:58 → C.EDA 23:32
DX: N39.0 Urinary tract infection, site not specified (principal); I10 Essential (primary) hypertension; Z98.890 Other specified postprocedural states; Z80.9 Family history of malignant neoplasm, unspecified; Z82.49 Family history of ischemic heart disease and other diseases of the circulatory system; Z88.1 Allergy status to other antibiotic agents; Z88.2 Allergy status to sulfonamides

== ENCOUNTER → 2016-12-05 | Outpatient (CLI) | payer OTHER ==
[~2016-12-05] MED LIST changes: +AMOX500C3 PO; +ATV5 PO; +CEFU1TAB36 PO; +FERR1TAB13 PO; +FERR325T5; +FLUT0.15 NAE; +FRRS300 PO; -LIDO2GEL8 TOP; +MCRK20 PO; +METR0.757 PV; +MTHH1 PO; +PHEN-876 PO; +PYRI100T4 PO; +SIMV10TA2 PO; +TRAM-10 PO; +ULT50X PO; +VNTHFA/IN INH; +[UNRECOGNIZED DRUG - CODE] TOP
== END | disposition home or self-care (01) ==
LOC: C.LABSPEC 17:05
PROVIDERS: ATTEND Nurse Practitioner Adult Health
DX: N39.0 Urinary tract infection, site not specified (principal)

== ENCOUNTER 2016-12-13 10:20 | Inpatient (IN) | payer OTHER ==
[2016-12-06 15:35] VITALS: BMI 24.0
[~2016-12-13] VITALS: Ht 162.6 cm; Wt 67.6 kg
[2016-12-13] VITALS (7 sets, daily range): BP systolic 132–162; BP diastolic 54–80; PULSE 60–92; TEMP 35.8–36.8; O2SAT 97–100; Ht 162.6 cm; Wt 67.6 kg
[~2016-12-13 10:20] MED LIST changes: -AMOX500C3 PO; +ATOR10TA82 PO; -ATOR10TA88 PO; -ATV5 PO; +CEFAZOLIN 2000 MG/60 ML D5W 60 ML IV SCH; -FERR1TAB13 PO; -FERR325T5; -FRRS300 PO; +HEPARIN SOD 5000 UNIT/0.5 ML CARP SQ SCH; +LACTATED RINGER'S 1000ML IV SCH; -MCRK20 PO; -METR0.757 PV; -MTHH1 PO; -PHEN-876 PO; -PYRI50TA77 PO; -SIMV10TA2 PO; -TRAM-10 PO; -ULT50X PO
[2016-12-13] MEDS ORDERED: BUPIVACAINE/EPINEPHRINE 0.5% MPF 1:200,000 30 ML VIAL ONE (10:27)
[2016-12-13] MEDS ORDERED: ROCURONIUM BROMIDE 10 MG/ML 5 ML VIAL ONE (10:28)
[2016-12-13] MEDS ORDERED: ONDANSETRON INJ 2 MG/ML 2 ML VIAL ONE ×2 (10:28→15:57)
[2016-12-13] MEDS ORDERED: DEXAMETHASONE SOD INJ 4 MG/ML VIAL ONE (10:28)
[2016-12-13] MEDS ORDERED: FENTANYL CITRATE INJ 50 MCG/1 ML 2 ML VIAL ONE (10:28)
[2016-12-13] MEDS ORDERED: PROPOFOL IV EMULSION 10 MG/ML 20 ML VIAL IV ONE (10:28)
[2016-12-13] MEDS ORDERED: GLYCOPYRROLATE INJ 0.2 MG/ML VIAL ONE (10:28)
[2016-12-13] MEDS ORDERED: LIDOCAINE HCL 2% 2 ML VIAL (20MG/ML) ONE (10:28)
[2016-12-13] MEDS ORDERED: SUCCINYLCHOLINE CHLORIDE 20 MG/ML 10 ML VIAL IV ONE (10:28)
[2016-12-13] MEDS ORDERED: NEOSTIGMINE METHYLSULFATE 5 MG/5 ML SYR ONE (10:28)
[2016-12-13] MEDS ORDERED: EpHEDrine SULFATE INJ 50 MG/ML AMP ONE (10:28)
[2016-12-13] MEDS ORDERED: MIDAZOLAM HCL 1 MG/ML 2ML VIAL ONE (10:28)
[2016-12-13] MEDS ORDERED: PHENYLEPHRINE HCL INJ 10 MG/ML VIAL ONE (10:28)
[2016-12-13] MEDS ORDERED: MoRPHine SULFATE 10 MG/ML CARP/VIAL IV PRN (10:30)
[2016-12-13] MEDS ORDERED: EpHEDrine SULFATE INJ 50 MG/ML AMP IV PRN (10:30)
[2016-12-13] MEDS ORDERED: ONDANSETRON INJ 2 MG/ML 2 ML VIAL IV PRN (10:30)
[2016-12-13] MEDS ORDERED: ATROPINE SULFATE 0.1 MG/ML 5ML SYR IV PRN (10:30)
[2016-12-13] MEDS ORDERED: METR0.757 PV (11:03)
--- NOTE | 2016-12-13 11:47 | History & Physical Bridge Note ---
H&P Re-Evaluation Bridge Note: I have examined the patient, reviewed the History & Physical and in the interval since the performance of the History & Physical I have noted the following changes of clinical significance: No changes noted
[2016-12-13] MEDS ORDERED: HYDROmorphone INJ 2 MG/ML SYR/VIAL ONE (12:35)
[2016-12-13] MEDS ORDERED: SODIUM CHLORIDE 0.9% 1000ML 1,000 ML IV SCH (14:48)
--- NOTE | 2016-12-13 14:51 | [facility] Operative Report ---
Operative Report Operative Date Dec 13, 2016. Pre-Operative Diagnosis Colon Mass Post-Operative Diagnosis same with liver mass, omental masses Procedure(s) Performed open transverse colectomy;omentectomy;excisional biopsy of liver lesion-left lobe Surgeon Dami Zone Maintenance Technician Surgeon(s) Fer Sharma PA-C Estimated Blood Loss 250ML Findings mid-transverse colon mass; multiple omental masses;left lobe liver cystic mass Specimens A: Portion of Colon and Omentum Drains josé into LUQ Anesthesia get Complication(s) None Disposition Recovery Room / PACU I attest to the content of the Intraoperative Record and any orders documented therein. Any exceptions are noted below.
[2016-12-13] MEDS ORDERED: LORATADINE 10 MG TAB PO PRN (15:00)
[2016-12-13] MEDS ORDERED: ALBUTEROL HFA 8 GM INHALER INH PRN (15:00)
[2016-12-13] MEDS ORDERED: NALOXONE HCL 0.4 MG/1 ML VIAL/CARP IV PRN (15:00)
[2016-12-13] MEDS ORDERED: FLUTICASONE PROPIONATE NA SPR 16 GM BTL NAE PRN (15:00)
[2016-12-13] MEDS ORDERED: MoRPHine SULFATE 1 MG/ML 50 ML PCA CASS IV PRN (15:00)
[2016-12-13] MEDS: FENTANYL CITRATE INJ 50 MCG/1 ML 2 ML VIAL IV PRN ×2 (15:05→15:10)
[2016-12-13] MEDS ORDERED: METOCLOPRAMIDE HCL INJ 5 MG/ML 2 ML VIAL ONE (15:13)
[2016-12-13] MEDS ORDERED: MoRPHine SULFATE 1 MG/ML 50 ML PCA CASS ONE (15:16)
[2016-12-13] MEDS ORDERED: NURSING VERBAL MED ORDER ONE ×2 (15:20→18:45)
--- NOTE | 2016-12-13 15:45 | OPERATIVE REPORT ---
DATE OF OPERATION: 12/13/2016 PREOPERATIVE DIAGNOSES: Colon mass and liver mass. POSTOPERATIVE DIAGNOSES: Colon mass, liver mass, and multiple omental masses. PROCEDURE PERFORMED: Open transverse colectomy with primary anastomosis, omentectomy, excisional biopsy of left liver lesion. SURGEON: Andrey oLmax DO PIPE ORGAN TUNER AND REPAIRER: Fer Herrera PA-C ESTIMATED BLOOD LOSS: Approximately 250 mL. COMPLICATIONS: No immediate. ANESTHESIA: General. DISPOSITION: The patient tolerated the procedure well. DESCRIPTION OF PROCEDURE: After informed consent was obtained, the patient was brought to the operating suite, placed in supine position. After successful intubation, a Zepeda catheter was placed and the abdomen was sterilely prepped and draped in usual fashion. A midline incision was made from the xiphoid down around the umbilicus. It was carried down through the soft tissue using electrocautery. Anterior fascia was opened using electrocautery. We elevated the peritoneum with hemostats and opened it with a Metzenbaum scissor. We extended to both poles using electrocautery. Once in the abdomen, the transverse colon was readily apparent. It was actually quite redundant transverse colon with loose floppy mesentery. We were able to see the GI's tattoo millie as well as a large colon mass just distal to it. There were also several very worrisome several centimeters lesions on the greater omentum itself as well as a small cystic mass in the inferior edge of the left lobe of the liver. The other peritoneal surfaces all appeared normal. I felt no palpable lymphadenopathy. There was no other liver lesions, etc. Because of the location mass in the mid transverse, it was actually toward the splenic side of the middle colic vessels. We therefore had to take down the entire splenic flexure to get rid of the watershed area. We transected the transverse colon using LARS linear stapler just on the distal side of the middle colic vessels which was still several inches away from the mass itself. We then freed up the omentum from the greater curvature of the stomach using the LigaSure device. Next, we picked a spot in the left colon proximal to the left colic vessels and transected it using a LARS stapler as well. We then used electrocautery to free up the white line of Toldt the whole way up to the splenic flexure. We took down the short gastric vessels to the spleen using the LigaSure device as well. During this process, there was a small splenic capsular tear with some bleeding. We packed this off and we deal with it towards the end of the case. Once we had completely used blunt dissection as well as LigaSure to free up the splenic flexure, we then came across the mesentery staying as low as possible to incorporate the lymph nodes. Eventually, we got the transverse colon, splenic flexure and proximal part of the left colon out en bloc. It was sent to pathology. It was sent with the omentum still attached to it. We then performed a side to side colonic anastomosis. We were able to free up the left colon such that it was completely tension free. We made an enterotomy in the transverse colon as well as the left colon and performed a side end-to-side anastomosis with a LARS linear stapler. The common enterotomy was closed in 2 layers using 3-0 Monocryl in a running fashion through both serosal and mucosal layers and then we imbricated it with interrupted 3-0 silk. We also placed a 3-0 silk crotch stitch as well as close the mesenteric defect with 2-0 Vicryl in a running fashion. The anastomosis was viable. There was no ischemia. We squeeze either side. There was no evidence of any staple line or anastomotic leak. We thoroughly irrigated the abdomen at this point. The small capsule bleeder on the spleen was packed off and then we placed some FloSeal followed by some Surgicel over the top, packed it and held pressure for several minutes. This seemed to control the bleeding. This left us with the small liver lesion on the inferior edge of the left lobe of the liver. We grasped the good tissue around it with an Allis clamp and using electrocautery, we excised the mass which appeared to be cystic in nature. We passed it off to be sent to pathology. We controlled the bleeding on the liver bed using electrocautery. We also placed some Tisseel on the liver bed and we also used Tisseel over the anastomosis and enterotomy sites. The remainder of the abdomen appeared normal. There was adequate hemostasis at the end of the procedure. We thoroughly irrigated the entire abdomen with clean warm irrigant. We placed a #10 flat Nahun-Rudolph drain along the left pericolic gutter and brought out through a separate stab incision and secured to the skin using 2-0 silk. We then closed the fascia using #1 PDS starting either pole and running them and securing them together in the midline. Soft tissue was irrigated and skin was closed with skin cristine. Silver dressing was applied. The patient was awakened, extubated, and transferred to recovery in stable condition. I attest to the content of the Intraoperative Record and any orders documented therein. Any exceptio ns are noted below.
--- NOTE | 2016-12-13 15:46 | Anesthesiology Progress Note ---
Anesthesia Post Op Note Date & Time Dec 13, 2016 at 15:47 Vital Signs Pain Intensity: 3 Vital Signs Past 12 Hours Date Time Temp Pulse Resp B/P Pulse Ox O2 Delivery O2 Flow Rate FiO2 12/13/16 15:35 36.4 68 16 131/45 100 Nasal Cannula 3 12/13/16 15:25 92 16 137/50 100 Nasal Cannula 3 12/13/16 15:15 60 16 129/45 100 Mask 10 12/13/16 15:05 90 16 159/71 100 Mask 10 12/13/16 14:55 36.0 100 16 158/82 100 Mask 10 12/13/16 11:05 36.8 92 18 162/80 97 Room Air Notes Mental Status: alert / awake / arousable, participated in evaluation Pt Amnestic to Procedure: Yes Nausea / Vomiting: adequately controlled Pain: adequately controlled Airway Patency, RR, SpO2: stable & adequate BP & HR: stable & adequate Hydration State: stable & adequate Anesthetic Complications: no major complications apparent
[2016-12-13] MEDS ORDERED: ONDANSETRON INJ 2 MG/ML 2 ML VIAL IV STA (15:51)
[2016-12-13] MEDS: LACTATED RINGER'S 1000ML 1,000 ML IV SCH (17:46)
[2016-12-13] MEDS: CEFAZOLIN IV 1,000 MG in DEXTROSE 5% 50ML 50 ML IV SCH (20:19)
[2016-12-13] MEDS: PENTOSAN POLYSULFATE SODIUM 100 MG CAP PO SCH (20:51)
[2016-12-13] MEDS: METOCLOPRAMIDE HCL INJ 5 MG/ML 2 ML VIAL IV. PRN (21:39)
[2016-12-13] MEDS ORDERED: CEFAZOLIN SOD 1000MG/55 ML D5W IV SCH (22:00)
[2016-12-14] MEDS: LACTATED RINGER'S 1000ML 1,000 ML IV SCH ×3 (00:56→19:32)
[2016-12-14 04:04] VITALS: BP 144/59; PULSE 79; TEMP 37.1; O2SAT 99
[2016-12-14] MEDS: CEFAZOLIN IV 1,000 MG in DEXTROSE 5% 50ML 50 ML IV SCH ×2 (04:18→13:56)
[2016-12-14 06:43] LABS: HEMATOCRIT 21.7 % (37-47); IG% 0.1 %; LYMPH % 11.4 %; LYMPH ABS # 1.04 K/uL (1.2-3.4); MEAN CELL VOLUME 88.9 fL (80-100); MEAN CORPUSCULAR HEMOGLOBIN 29.9 pg (25-34); MEAN CORPUSCULAR HGB CONC 33.6 g/dl (32-36); MEAN PLATELET VOLUME 8.6 fL (7.4-10.4); MONO % 5.6 %; NEUT % 82.9 %; PLATELET COUNT 320 K/uL (130-400); RED BLOOD COUNT 2.44 M/uL (4.2-5.4); WHITE BLOOD COUNT 9.11 K/uL (4.8-10.8)
--- NOTE | 2016-12-14 07:19 | Surgery Progress Note ---
Surgery Progress Note Date of Service Dec 14, 2016. 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), No complaints Objective Vital Signs: Date Time Temp Pulse Resp B/P Pulse Ox O2 Delivery O2 Flow Rate FiO2 12/14/16 04:04 37.1 79 16 144/59 99 Nasal Cannula 3.0 12/13/16 23:30 Nasal Cannula 2.0 12/13/16 23:15 36.5 79 16 153/73 100 Nasal Cannula 2.0 12/13/16 19:50 35.8 61 14 134/59 100 Nasal Cannula 2.0 12/13/16 18:38 36.3 60 14 132/54 100 Nasal Cannula 2.0 12/13/16 17:42 36.4 63 18 138/55 100 Nasal Cannula 2.5 12/13/16 17:01 36.4 64 16 135/55 100 Nasal Cannula 2.0 12/13/16 16:45 Nasal Cannula 2.0 12/13/16 16:45 Nasal Cannula 2.0 12/13/16 16:25 36.3 60 16 145/58 100 Nasal Cannula 2.0 12/13/16 16:00 57 16 148/47 100 Nasal Cannula 2 12/13/16 15:45 36.4 68 16 116/88 100 Nasal Cannula 3 12/13/16 15:35 36.4 68 16 131/45 100 Nasal Cannula 3 12/13/16 15:25 92 16 137/50 100 Nasal Cannula 3 12/13/16 15:15 60 16 129/45 100 Mask 10 12/13/16 15:05 90 16 159/71 100 Mask 10 12/13/16 14:55 36.0 100 16 158/82 100 Mask 10 12/13/16 11:05 36.8 92 18 162/80 97 Room Air Physical Exam: FRANCINE drainage (70 cc overnight, mostly serous), urine output (250 cc) Cardiovascular: regular rate, rhythm Abdomen: soft, + distended (slighlty) Incision(s): intact (dressing) Laboratory Results: Results Past 24 Hours Test 12/14/16 06:20 Range/Units White Blood Count 9.11 4.8-10.8 K/uL Red Blood Count 2.44 4.2-5.4 M/uL Hemoglobin 7.3 12.0-16.0 g/dL Hematocrit 21.7 37-47 % Mean Corpuscular Volume 88.9 80-100 fL Mean Corpuscular Hemoglobin 29.9 25-34 pg Mean Corpuscular Hemoglobin Concent 33.6 32-36 g/dl Platelet Count 320 130-400 K/uL Mean Platelet Volume 8.6 7.4-10.4 fL Neutrophils (%) (Auto) 82.9 % Lymphocytes (%) (Auto) 11.4 % Monocytes (%) (Auto) 5.6 % Eosinophils (%) (Auto) 0.0 % Basophils (%) (Auto) 0.0 % Neutrophils # (Auto) 7.55 1.4-6.5 K/uL Lymphocytes # (Auto) 1.04 1.2-3.4 K/uL Monocytes # (Auto) 0.51 0.11-0.59 K/uL Eosinophils # (Auto) 0.00 0-0.5 K/uL Basophils # (Auto) 0.00 0-0.2 K/uL RDW Standard Deviation 45.3 36.4-46.3 fL RDW Coefficient of Variation 13.8 11.5-14.5 % Immature Granulocyte % (Auto) 0.1 % Immature Granulocyte # (Auto) 0.01 0.00-0.02 K/uL Assessment & Plan s/p transverse colectomy, liver biopsy/excision UOP marginal, will keep IV at 125 and leave hilario for now, PRP pending OOB as lyric ice, sips, NG if nausea persists or has vomiting acute on chronic anemia will discuss transfusion with Dr. Lomax VSS stable, drainage is non-bloody SCDs, will hold on Lovenox/heparin for now
[2016-12-14 07:28] LABS: BUN/CREATININE RATIO 17.3 (10-20); CALCIUM 7.5 mg/dl (8.5-10.1); CREATININE 0.67 mg/dl (0.60-1.20); POTASSIUM 4.4 mmol/L (3.5-5.1)
[2016-12-14 07:49] VITALS: BP 164/60; PULSE 90; TEMP 37; O2SAT 97
[2016-12-14 07:55] LABS: COMPLETE YES
--- NOTE | 2016-12-14 08:33 | Anesthesiology Progress Note ---
Anesthesia Post Op Note Date & Time Dec 14, 2016 at 08:31 Vital Signs Vital Signs Past 12 Hours Date Time Temp Pulse Resp B/P Pulse Ox O2 Delivery O2 Flow Rate FiO2 12/14/16 07:49 37.0 90 16 164/60 97 Room Air 12/14/16 04:04 37.1 79 16 144/59 99 Nasal Cannula 3.0 12/13/16 23:30 Nasal Cannula 2.0 12/13/16 23:15 36.5 79 16 153/73 100 Nasal Cannula 2.0 Notes Nausea / Vomiting: improving with treatment Pain: improving with treatment (Pt states RX SPECIALIST pump is keeping pain tolerable but she is still sore.) Airway Patency, RR, SpO2: see Notes (Instructed patient to do incentive spirometer until she is up and ambulating)
--- NOTE | 2016-12-14 09:39 | Clinical Documentation Query ---
Mr. PÉREZRADHA : CLINICAL DOCUMENTATION QUERY Patient is an 86 year old female who on 12/13 underwent open transverse colectomy;omentectomy;excisional biopsy of liver lesion-left lobe. EBL for the procedure was 250 ml's with subsequently documented losses totaling an additional 335 ml's. Preoperative hemoglobin and hematocrit were 11.3 g/dl and 34.4%. POD #1, repeat values are 7.3 g/dl and 21.7%. Additionally, I/O is positive for about 2,800 ml's. Documentation includes "acute on chronic anemia". Please explicitly state the etiology(ies) as this may directly impact DRG assignment. In your clinical opinion is this patient being managed for: ( x ) Acute blood loss and hemodilutional anemia ( ) Other explanation of clinical findings (Please Explain) ( ) Unable to determine (Please Define) ( ) Need to Discuss ( ) Not Agree The medical record reflects the following clinical findings, treatment, and risk factors. Clinical Indicators: As above Treatment: Serial hematology, I/O including drain outputs. Risk Factors: Acute perioperative blood losses and IVF administration. Please clarify and document your clinical opinion in the progress notes and discharge summary. Terms such as "probable", "suspected", "likely", "questionable", "possible", or "still to be ruled out" are acceptable. IF IN AGREEMENT, YOU MUST DOCUMENT ABOVE DIAGNOSTIC STATEMENT IN DAILY PROGRESS NOTES AND DISCHARGE SUMMARY. This document is not part of the patient's record. Thank You, Jon Alonzo, MARYELLEN [phone]
[2016-12-14] MEDS: ACETAMINOPHEN IV 100 ML IV PRN ×2 (09:55→19:32)
[2016-12-14] MEDS ORDERED: NURSING VERBAL MED ORDER ONE ×2 (10:00→16:30)
[2016-12-14] MEDS: FLUTICASONE FUROATE-VILANTEROL 200/25 MCG INH IN SCH (10:01)
[2016-12-14] MEDS: HYDROCORTISONE HC 2.5% CRM 30GM TUBE EXT PRN (10:06)
[2016-12-14] MEDS: TELMISARTAN 40 MG TAB PO SCH (12:02)
[2016-12-14] MEDS: PENTOSAN POLYSULFATE SODIUM 100 MG CAP PO SCH ×2 (12:02→21:00)
[2016-12-14] MEDS: AMLODIPINE BESYLATE 5 MG TAB PO SCH (12:03)
[2016-12-14] MEDS: KETOTIFEN FUMARATE (ZADITOR) 0.025% 5 ML BTL OP SCH ×2 (12:05→20:37)
[2016-12-14] MEDS: METRONIDAZOLE VAG 0.75% PV SCH (12:06)
[2016-12-14] MEDS: ONDANSETRON INJ 2 MG/ML 2 ML VIAL IV PRN ×2 (14:08→20:34)
[2016-12-14] MEDS: HYDROmorphone INJ 0.5 MG/0.5 ML SYR IV PRN (14:08)
[2016-12-14 15:03] VITALS: BP 136/52; PULSE 71; TEMP 37; O2SAT 97
[2016-12-14] MEDS ORDERED: PANTOprazole SOD 40 MG TAB PO ONE (17:00)
[2016-12-14] MEDS: METOCLOPRAMIDE HCL INJ 5 MG/ML 2 ML VIAL IV. PRN (17:47)
--- NOTE | 2016-12-14 23:48 | SURGERY PROGRESS NOTE ---
DATE: 12/14/2016 I was called by the nurses approximately 10 minutes ago. The patient stated that she really was bringing some liquid stuff, her nausea persisted. I asked that with that finding to place an NG tube and came out to see the patient. At this time, her daughter is at bedside. The patient appears quite pale. An NG tube is in good position, she has about 400 to 500 or more coffee ground material. Her abdomen is completely benign. Her last vitals were actually taken at 1500 when her temperature was 37, pulse 71, respiration 14, blood pressure 136/52, O2 sats 97 on 2 liters. Urine output is 1425. The Tima drainage was 210. LABORATORY STUDY: This morning her white count is 9.11. Her hemoglobin was down to 7.3 with a left shift. They had called me about 4 hours ago that the patient was nauseated. She had received Zofran with little output and she has had significant heartburn. At that time, I gave an order for Phenergan to be given. The daughter explained that she has pretty had dry heaves all afternoon. At this point, we will institute H2 blockers and she has been on Protonix. She does have a history of reflux in the past. We will go ahead and transfuse 1 unit of blood tonight.
[2016-12-15] VITALS (8 sets, daily range): BP systolic 141–167; BP diastolic 46–71; PULSE 60–102; TEMP 36.6–37.8; O2SAT 93–98
[2016-12-15] MEDS: METRONIDAZOLE VAG 0.75% PV SCH ×2 (00:11→07:56)
[2016-12-15] MEDS: ONDANSETRON INJ 2 MG/ML 2 ML VIAL IV PRN (02:34)
[2016-12-15] MEDS: LACTATED RINGER'S 1000ML 1,000 ML IV SCH (03:34)
[2016-12-15 07:29] LABS: BASO % 0.1 %; BASO ABS # 0.01 K/uL (0-0.2); COMPLETE YES; HEMATOCRIT 27.6 % (37-47); IG% 0.2 %; LYMPH ABS # 0.88 K/uL (1.2-3.4); MEAN CELL VOLUME 86.8 fL (80-100); MEAN CORPUSCULAR HEMOGLOBIN 28.9 pg (25-34); MEAN CORPUSCULAR HGB CONC 33.3 g/dl (32-36); MONO % 6.1 %; NEUT % 83.6 %; PLATELET COUNT 326 K/uL (130-400); RED BLOOD COUNT 3.18 M/uL (4.2-5.4); WHITE BLOOD COUNT 8.76 K/uL (4.8-10.8)
[2016-12-15] MEDS: ACETAMINOPHEN IV 100 ML IV PRN ×2 (07:30→19:51)
[2016-12-15] MEDS: HYDROCORTISONE HC 2.5% CRM 30GM TUBE EXT PRN (07:55)
[2016-12-15] MEDS: KETOTIFEN FUMARATE (ZADITOR) 0.025% 5 ML BTL OP SCH ×2 (08:00→20:53)
[2016-12-15 08:03] LABS: BUN/CREATININE RATIO 13.1 (10-20); CALCIUM 7.7 mg/dl (8.5-10.1); CREATININE 0.61 mg/dl (0.60-1.20); POTASSIUM 3.4 mmol/L (3.5-5.1)
[2016-12-15] MEDS: FLUTICASONE FUROATE-VILANTEROL 200/25 MCG INH IN SCH (09:00)
[2016-12-15] MEDS ORDERED: PANTOprazole SOD 40 MG TAB PO SCH (09:00)
[2016-12-15] MEDS: PENTOSAN POLYSULFATE SODIUM 100 MG CAP PO SCH ×2 (09:00→20:54)
[2016-12-15] MEDS: TELMISARTAN 40 MG TAB PO SCH (09:00)
[2016-12-15] MEDS: AMLODIPINE BESYLATE 5 MG TAB PO SCH (09:00)
[2016-12-15] MEDS ORDERED: NURSING VERBAL MED ORDER ONE (10:00)
--- NOTE | 2016-12-15 10:31 | SURGERY PROGRESS NOTE ---
DATE: 12/15/2016 SUBJECTIVE: Kadie is sitting at the side of the bed. Her daughter is at the bedside. Her NG tube is still in place, although it has not been draining much as it did. Initially, she had yesterday since insertion; overnight 1850 mL. She is sitting up there. She looks better than she had yesterday. She is less dizzy. We did give her a unit of blood. She is complaining of abdominal pain as would be expected. Her last vitals showed a temperature of 37.8, pulse 89, respirations 18, blood pressure 167/71, O2 sats 94 on 2 liters. Urine output was 1250 overnight. The abdomen is distended non tender positive guarding. LABORATORY STUDIES: This morning, her potassium is 3.4, BUN is 8, creatinine 0.8. Hemoglobin is 9.2. There is no white count, but she does have a slight left shift. At this point, we will keep the NG tube in, titrate her IV fluids and increase her activity, leave the Zepeda in for today. TROY
[2016-12-15] MEDS: SODIUM CHLOR 0.45% + 20MEQ KCL 1,000 ML IV SCH ×2 (10:36)
[2016-12-15] MEDS: PANTOprazole INJ 40 MG in SYRINGE 0 ML IV SCH (10:37)
[2016-12-15] MEDS: HYDROmorphone INJ 0.5 MG/0.5 ML SYR IV PRN (14:21)
[2016-12-16 00:20] VITALS: BP 141/57
[2016-12-16 07:16] LABS: BASO % 0.1 %; BASO ABS # 0.01 K/uL (0-0.2); COMPLETE YES; HEMATOCRIT 27.3 % (37-47); IG% 0.3 %; LYMPH % 13.6 %; LYMPH ABS # 0.95 K/uL (1.2-3.4); MEAN CELL VOLUME 87.5 fL (80-100); MEAN CORPUSCULAR HEMOGLOBIN 28.8 pg (25-34); MONO % 6.3 %; NEUT % 78.7 %; PLATELET COUNT 357 K/uL (130-400); RED BLOOD COUNT 3.12 M/uL (4.2-5.4); WHITE BLOOD COUNT 6.96 K/uL (4.8-10.8)
[2016-12-16 07:41] LABS: BUN/CREATININE RATIO 19.1 (10-20); CALCIUM 7.7 mg/dl (8.5-10.1); CREATININE 0.56 mg/dl (0.60-1.20); POTASSIUM 3.6 mmol/L (3.5-5.1)
[2016-12-16] MEDS: ACETAMINOPHEN IV 100 ML IV PRN ×2 (07:49→18:02)
[2016-12-16 08:11] VITALS: BP 164/63; PULSE 85; TEMP 36.8; O2SAT 96
--- NOTE | 2016-12-16 08:42 | SURGERY PROGRESS NOTE ---
DATE: 12/16/2016 Kadie is third postoperative day status post colon resection and wedge resection lesion of liver. She feels much better this morning. Her last vitals showed a temperature of 36.4, pulse 60, respirations 18, blood pressure 141/57, O2 sats 98 on two liters. Her I\T\O; she is fairly balanced. Her urine output was 650 overnight. NG drainage was just 270. Her abdomen is much softer. Laboratory hung this morning; her potassium was 3.6, BUN 11, creatinine 0.56 and hemoglobin is 9. No white count or left shift. At this point, we will discontinue the NG tube and start her slightly on clear liquids.
[2016-12-16] MEDS: TELMISARTAN 40 MG TAB PO SCH (09:52)
[2016-12-16] MEDS: AMLODIPINE BESYLATE 5 MG TAB PO SCH (09:53)
[2016-12-16] MEDS: PENTOSAN POLYSULFATE SODIUM 100 MG CAP PO SCH ×2 (09:54→20:45)
[2016-12-16] MEDS: KETOTIFEN FUMARATE (ZADITOR) 0.025% 5 ML BTL OP SCH ×2 (09:55→20:45)
[2016-12-16] MEDS: FLUTICASONE FUROATE-VILANTEROL 200/25 MCG INH IN SCH (09:56)
[2016-12-16] MEDS: METRONIDAZOLE VAG 0.75% PV SCH (09:57)
[2016-12-16] MEDS: TRAMADOL HCL 50 MG TAB PO PRN (12:37)
[2016-12-16 15:14] VITALS: BP 150/56; PULSE 77; TEMP 37.2; O2SAT 94
[2016-12-16] MEDS: SODIUM CHLOR 0.45% + 20MEQ KCL 1,000 ML IV SCH (16:01)
[2016-12-16] MEDS: PANTOprazole INJ 40 MG in SYRINGE 0 ML IV SCH (16:02)
[2016-12-16 23:45] VITALS: BP 171/68; PULSE 85; TEMP 36.8; O2SAT 93
[2016-12-17] MEDS: TRAMADOL HCL 50 MG TAB PO PRN (00:52)
[2016-12-17] MEDS: METRONIDAZOLE VAG 0.75% PV SCH (01:48)
[2016-12-17 03:14] VITALS: BP 164/68
[2016-12-17] MEDS: ACETAMINOPHEN IV 100 ML IV PRN ×2 (04:22→18:25)
[2016-12-17 07:30] VITALS: BP 117/62; PULSE 60; TEMP 36.5; O2SAT 97
[2016-12-17] MEDS: ONDANSETRON INJ 2 MG/ML 2 ML VIAL IV PRN (07:41)
--- NOTE | 2016-12-17 08:38 | Surgery Progress Note ---
Surgery Progress Note Date of Service Dec 17, 2016. Subjective Post OP Day: 4 + nausea Otherwise feeling well- believes nausea is from Tramadol Tolerating liquids No BM yet. Pain control adequate Objective Vital Signs: Date Time Temp Pulse Resp B/P Pulse Ox O2 Delivery O2 Flow Rate FiO2 12/17/16 08:07 Room Air 12/17/16 07:30 36.5 60 24 117/62 97 Room Air 12/17/16 03:14 164/68 12/17/16 00:50 Room Air 12/16/16 23:45 36.8 85 16 171/68 93 Room Air 12/16/16 19:43 Room Air 12/16/16 15:14 37.2 77 16 150/56 94 Room Air Physical Exam: FRANCINE drainage (Serosang. ) General Appearance: no apparent distress Respiratory/Chest: no respiratory distress, no accessory muscle use Abdomen: non distended, soft Incision(s): clean, dry, intact Laboratory Results: Item Value Date Time White Blood Count 6.96 K/uL 12/16/16 0655 Hemoglobin 9.0 g/dL L 12/16/16 0655 Hematocrit 27.3 % L 12/16/16 0655 Platelet Count 357 K/uL 12/16/16 0655 Assessment & Plan POD #4- overall doing well, awaiting return of bowel function. WiIll not advance diet until bowel function and nausea improve. Will recheck Hgb. PT eval. Discussed with family discharge planning. path report pending.
[2016-12-17] MEDS: PENTOSAN POLYSULFATE SODIUM 100 MG CAP PO SCH ×2 (09:00→21:13)
[2016-12-17] MEDS: AMLODIPINE BESYLATE 5 MG TAB PO SCH (09:00)
[2016-12-17] MEDS: KETOTIFEN FUMARATE (ZADITOR) 0.025% 5 ML BTL OP SCH ×2 (09:01→21:00)
[2016-12-17] MEDS: TELMISARTAN 40 MG TAB PO SCH (09:01)
[2016-12-17] MEDS: FLUTICASONE FUROATE-VILANTEROL 200/25 MCG INH IN SCH (09:07)
[2016-12-17 09:52] VITALS: O2SAT 97
[2016-12-17] MEDS: SODIUM CHLOR 0.45% + 20MEQ KCL 1,000 ML IV SCH (11:02)
[2016-12-17] MEDS: PANTOprazole INJ 40 MG in SYRINGE 0 ML IV SCH (11:02)
[2016-12-17 15:42] VITALS: BP 155/62; PULSE 74; TEMP 36.8; O2SAT 92
[2016-12-17 22:59] VITALS: BP 151/61; PULSE 80; TEMP 37; O2SAT 95
[2016-12-18] MEDS: ACETAMINOPHEN IV 100 ML IV PRN ×2 (02:24→10:34)
[2016-12-18] MEDS ORDERED: METRONIDAZOLE VAG 0.75% PV PRN (02:30)
[2016-12-18] MEDS: SODIUM CHLOR 0.45% + 20MEQ KCL 1,000 ML IV SCH ×2 (03:18→21:50)
[2016-12-18 06:59] LABS: BASO % 0.3 %; BASO ABS # 0.02 K/uL (0-0.2); EOS % 1.6 %; HEMATOCRIT 29.2 % (37-47); IG% 0.4 %; LYMPH % 33.6 %; LYMPH ABS # 2.33 K/uL (1.2-3.4); MEAN CELL VOLUME 85.4 fL (80-100); MEAN CORPUSCULAR HEMOGLOBIN 28.7 pg (25-34); MEAN PLATELET VOLUME 8.8 fL (7.4-10.4); MONO % 7.6 %; NEUT % 56.5 %; PLATELET COUNT 483 K/uL (130-400); RED BLOOD COUNT 3.42 M/uL (4.2-5.4); WHITE BLOOD COUNT 6.93 K/uL (4.8-10.8)
[2016-12-18 07:01] LABS: COMPLETE YES; MEAN CORPUSCULAR HGB CONC 33.6 g/dl (32-36)
--- NOTE | 2016-12-18 07:12 | DIAGNOSTIC IMAGING REPORT ---
KUB CLINICAL HISTORY: Respiratory arrest. Abdominal pain. COMPARISON STUDY: No previous studies for comparison. FINDINGS: Postsurgical changes are visualized. There is a left upper quadrant drain. No free air is visualized on the supine study. It should be noted that supine studies are insensitive for the detection of free intraperitoneal air. There are mildly prominent small bowel loops. IMPRESSION: 1. Postsurgical changes 2. Borderline dilated small bowel loops 3. No free air identified however a supine study is insensitive for the detection of free intraperitoneal air. Electronically signed by: Grabiel Del Toro M.D. 12/18/2016 7:11 AM Dictated Date/Time: 12/18/2016 7:10 AM
--- NOTE | 2016-12-18 07:16 | Progress Note ---
Progress Note Date of Service Dec 18, 2016. Progress Note Code purple called at 6:30 am Patient was noted to be unresponsive for a few seconds. She did awaken shortly after, complaining of abdominal pain. Thought she felt something move in her abdomen. She is day 4 s/p colon resection and wedge resection of liver. Vitals stable, 98% on 2 L, B/P 140's/80's Awake, alert, moderate distress from pain Heart: RRR, S1S2 present Lungs: CTAB, no wheezing rales or ronchi Abd: Mildly distended, post op incision intact, dry, serosanguinous drainage from FRANCINE drain, BS+'ve Plan: NSS Bolus Pain control Stat KUB Xray - my read; no obvious signs of free air under diaphragm, Constipation.
[2016-12-18 07:17] VITALS: BP 156/64; PULSE 83; TEMP 36.4; O2SAT 99
--- NOTE | 2016-12-18 07:27 | DIAGNOSTIC IMAGING REPORT ---
CHEST ONE VIEW PORTABLE HISTORY: look for free air COMPARISON: Chest 09/04/2016. FINDINGS: There is free air underneath the right hemidiaphragm. There is an epigastric/left upper quadrant surgical drain and midline skin cristine. Therefore, this is likely related to postoperative change at this time. The heart is borderline enlarged. No pneumothorax. Patchy bibasilar densities. No evidence for pulmonary edema. No significant pleural effusions. IMPRESSION: 1. There is free air beneath the right hemidiaphragm. There is a surgical drain and midline skin cristine at the abdomen. Therefore, this favors postoperative change at this time. 2. Patchy bibasilar densities. This may represent atelectasis or pneumonia. Electronically signed by: Ken Griggs M.D. 12/18/2016 7:26 AM Dictated Date/Time: 12/18/2016 7:24 AM
[2016-12-18 07:29] LABS: ALB/GLOB RATIO 0.6 (0.9-2); BUN/CREATININE RATIO 11.5 (10-20); CALCIUM 7.9 mg/dl (8.5-10.1); CREATININE 0.67 mg/dl (0.60-1.20); POTASSIUM 3.5 mmol/L (3.5-5.1)
[2016-12-18] MEDS: HYDROmorphone INJ 0.5 MG/0.5 ML SYR IV PRN (07:29)
[2016-12-18 07:46] VITALS: BP 154/64; PULSE 78; TEMP 36.6; O2SAT 99
--- NOTE | 2016-12-18 07:49 | Surgery Progress Note ---
Surgery Progress Note Date of Service Dec 18, 2016. Subjective Post OP Day: 5 haider gallegos called this morning, sat up to pass gas, had pain and and apparently had syncopal episode while in bed awake, alert now, c/o abdominal pain, no chest pain, no SOB loose BM yesterday and increasing flatus Objective Vital Signs: Date Time Temp Pulse Resp B/P Pulse Ox O2 Delivery O2 Flow Rate FiO2 12/18/16 07:17 36.4 83 32 156/64 99 Nasal Cannula 2.0 Humidified Oxygen 12/17/16 23:40 Room Air 12/17/16 22:59 37.0 80 15 151/61 95 Room Air 12/17/16 15:42 36.8 74 16 155/62 92 Room Air 12/17/16 15:31 Room Air 12/17/16 09:52 97 Room Air 12/17/16 08:07 Room Air Physical Exam: FRANCINE drainage (205/70) Respiratory/Chest: lungs clear Cardiovascular: regular rate, rhythm Abdomen: non tender, non distended, soft Incision(s): clean, dry Laboratory Results: Results Past 24 Hours Test 12/18/16 06:51 Range/Units White Blood Count 6.93 4.8-10.8 K/uL Red Blood Count 3.42 4.2-5.4 M/uL Hemoglobin 9.8 12.0-16.0 g/dL Hematocrit 29.2 37-47 % Mean Corpuscular Volume 85.4 80-100 fL Mean Corpuscular Hemoglobin 28.7 25-34 pg Mean Corpuscular Hemoglobin Concent 33.6 32-36 g/dl Platelet Count 483 130-400 K/uL Mean Platelet Volume 8.8 7.4-10.4 fL Neutrophils (%) (Auto) 56.5 % Lymphocytes (%) (Auto) 33.6 % Monocytes (%) (Auto) 7.6 % Eosinophils (%) (Auto) 1.6 % Basophils (%) (Auto) 0.3 % Neutrophils # (Auto) 3.91 1.4-6.5 K/uL Lymphocytes # (Auto) 2.33 1.2-3.4 K/uL Monocytes # (Auto) 0.53 0.11-0.59 K/uL Eosinophils # (Auto) 0.11 0-0.5 K/uL Basophils # (Auto) 0.02 0-0.2 K/uL RDW Standard Deviation 43.0 36.4-46.3 fL RDW Coefficient of Variation 13.9 11.5-14.5 % Immature Granulocyte % (Auto) 0.4 % Immature Granulocyte # (Auto) 0.03 0.00-0.02 K/uL Sodium Level 141 136-145 mmol/L Potassium Level 3.5 3.5-5.1 mmol/L Chloride Level 106 98-107 mmol/L Carbon Dioxide Level 26 21-32 mmol/L Anion Gap 9.0 3-11 mmol/L Blood Urea Nitrogen 8 7-18 mg/dl Creatinine 0.67 0.60-1.20 mg/dl Est Creatinine Clear Calc Drug Dose 54.0 ml/min Estimated GFR () 93.6 Estimated GFR (Non- 80.7 BUN/Creatinine Ratio 11.5 10-20 Random Glucose 99 70-99 mg/dl Calcium Level 7.9 8.5-10.1 mg/dl Total Bilirubin 0.3 0.2-1 mg/dl Aspartate Amino Transf (AST/SGOT) 12 15-37 U/L Alanine Aminotransferase (ALT/SGPT) 19 12-78 U/L Alkaline Phosphatase 72 45-117 U/L Total Protein 5.8 6.4-8.2 gm/dl Albumin 2.1 3.4-5.0 gm/dl Globulin 3.7 2.5-4.0 gm/dl Albumin/Globulin Ratio 0.6 0.9-2 Assessment & Plan s/p transverse colectomy, liver biopsy/excision acute on chronic anemia ? vasovagal episode, stable now, a little anxious CXR with atelectasis KUB mildly dilated small bowel H&H stable monitor this AM, consider advancing diet later
[2016-12-18 07:55] VITALS: BP 154/50; PULSE 74; O2SAT 98
[2016-12-18] MEDS: ONDANSETRON INJ 2 MG/ML 2 ML VIAL IV PRN (08:36)
[2016-12-18] MEDS: METOCLOPRAMIDE HCL INJ 5 MG/ML 2 ML VIAL IV. PRN (09:31)
[2016-12-18] MEDS: KETOTIFEN FUMARATE (ZADITOR) 0.025% 5 ML BTL OP SCH ×2 (10:17→20:43)
[2016-12-18] MEDS: PENTOSAN POLYSULFATE SODIUM 100 MG CAP PO SCH ×2 (10:17→21:49)
[2016-12-18] MEDS: FLUTICASONE FUROATE-VILANTEROL 200/25 MCG INH IN SCH ×2 (10:17→18:18)
[2016-12-18] MEDS: TELMISARTAN 40 MG TAB PO SCH (10:18)
[2016-12-18] MEDS: AMLODIPINE BESYLATE 5 MG TAB PO SCH (10:18)
[2016-12-18] MEDS: PANTOprazole INJ 40 MG in SYRINGE 0 ML IV SCH (11:24)
[2016-12-18 12:03] VITALS: BP 129/60; PULSE 93; TEMP 37; O2SAT 98
--- NOTE | 2016-12-18 13:48 | Medical Consult ---
Consultation Date of Consultation: Dec 18, 2016. Attending Physician: Andrey Lomax D.O. 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 Her progress has been slow, diet has not been advanced passed liquids due to abdominal pain, slowed bowels. As far as medical history, she has hypertension, hyperlipidemia , seasonal allergies and cystitis. No history of stroke, heart attack, renal failure or DM. Last evening she awoke with abdominal pain and passed some gas. Shortly afterwards she felt light headed and lost consciousness for several minutes. A code purple was called and resident responded. Her vitals were stable, morning labs were stable, CXR showed some atelectasis and surgical free air, no obstruction. Surgery requested a consult this AM. At time of my exam, the patient was feeling nauseated, had abdominal pain. She denied any chest pain or pressure, no dyspnea while resting. No other complaints except for fatigue. Past Medical/Surgical History Hypertension Hyperlipidemia Seasonal allergies Cystis Pneumonia Colonoscopy EGD GERD Family History FHx: cancer Hypertension Social History Smoking Status: Never Smoker Drug Use: none Marital Status: Housing Status: lives with significant other Occupation Status: retired Allergies Coded Allergies: Diltiazem (Verified Allergy, Severe, TIGHTENING OF THROAT, 12/13/16) Hydralazine (Verified Allergy, Intermediate, RASH, 12/13/16) Azithromycin (Verified Allergy, Mild, PT UNSURE, 12/13/16) Hydrocodone (Verified Allergy, Mild, GI UPSET, 12/13/16) Meperidine (Verified Allergy, Mild, GI UPSET, 12/13/16) Prochlorperazine (Verified Allergy, Mild, "BODY SHAKES", 12/13/16) Acetaminophen (Verified Allergy, Unknown, GI SYMPTOMS-pt DENIES, 12/13/16) Ciprofloxacin (Verified Allergy, Unknown, GI SYMPTOMS, 12/13/16) Hydrochlorothiazide (Verified Allergy, Unknown, DYSURIA, 12/13/16) Losartan (Verified Allergy, Unknown, JITTERY,SJAKEY, 12/13/16) Nifedipine (Verified Allergy, Unknown, EXACERBATION INTERSTITIAL CYCSTITIS , 12/13/16) Nitrofurantoin (Verified Allergy, Unknown, RASH, 12/13/16) Quinine (Verified Allergy, Unknown, PT UNSURE, 12/13/16) Spironolactone (Verified Allergy, Unknown, RECTAL PRESSURE, PAIN, 12/13/16) Sulfa Antibiotics (Verified Allergy, Unknown, PATIENT UNSURE, 12/13/16) Terazosin (Verified Allergy, Unknown, LIGHTHEADEDNESS AND NAUSEA, 12/13/16) Quinolones (Verified Adverse Reaction, Intermediate, CIPRO- NAUSEA, NERVOUS, CHILLS, 12/13/16) Metronidazole (Verified Adverse Reaction, Mild, STOMACH PAIN, 12/13/16) Simvastatin (Verified Adverse Reaction, Mild, STOMACH PAIN, 12/13/16) Beta Adrenergic Blockers (Verified Adverse Reaction, Unknown, "Secondary AVB", 12/13/16) Lisinopril (Verified Adverse Reaction, Unknown, "INTOLERANCE" PER DR COLON, 12/13/16) Methenamine (Verified Adverse Reaction, Unknown, STOMACH PAIN, 12/13/16) Phenothiazines (Verified Adverse Reaction, Unknown, SHAKEY, 12/13/16) Valdecoxib (Verified Adverse Reaction, Unknown, GI SYMPTOMS, 12/13/16) Home Medications Micardis Norvasc Albuterol Lipitor Cefuroxime Flonase Claritin Prilosec Current Inpatient Medications Current Inpatient Medications Medications (Trade) Dose Ordered Sig/Aleksander Route Start Time Stop Time Status Last Admin Dose Admin Ondansetron HCl (Zofran Inj) 4 mg Q6H PRN IV 12/13/16 15:00 01/12/17 14:59 12/18/16 08:36 4 MG Albuterol (Ventolin Hfa Inhaler) 2 puffs Q4 PRN INH 12/13/16 15:00 01/12/17 14:59 Amlodipine Besylate (Norvasc Tab) 10 mg QAM PO 12/14/16 09:00 01/13/17 08:59 12/17/16 09:00 10 MG Fluticasone Propionate (Flonase Nasal [place]) 2 sprays DAILY PRN LARRY 12/13/16 15:00 01/12/17 14:59 Loratadine (Claritin Tab) 10 mg DAILY PRN PO 12/13/16 15:00 01/12/17 14:59 Telmisartan (Micardis Tab) 80 mg QAM PO 12/14/16 09:00 01/13/17 08:59 12/17/16 09:01 80 MG Pentosan Polysulfate Sodium (Elmiron) 100 mg BID PO 12/13/16 21:00 01/12/17 20:59 12/17/16 21:13 100 MG Metoclopramide HCl (Reglan Inj) 10 mg Q6H PRN IV. 12/13/16 19:15 01/12/17 19:14 12/18/16 09:31 10 MG Fluticasone/ Vilanterol (Breo Ellipta 200-25 Mcg/Inh) 1 inha DAILY IN 12/14/16 09:00 01/13/17 08:59 12/17/16 09:07 1 INHA Ketotifen Fumarate (Zaditor 0.025% Op Soln) 1 drops Q12 OP 12/14/16 09:00 01/13/17 08:59 12/17/16 09:01 1 DROPS Hydrocortisone 1 appln 1 appln [id number] PRN EXT 12/14/16 07:15 01/13/17 07:14 12/15/16 07:55 1 APPLN Pantoprazole Sodium 40 mg/ Syringe 10 ml @ 5 mls/min DAILY@11 IV 12/15/16 11:00 01/14/17 10:59 12/18/16 11:24 5 MLS/MIN Potassium Chloride/Sodium Chloride (/2 Nss + 20meq KCl 1000ml) 1,000 ml @ 50 mls/hr Q20H IV 12/15/16 10:15 01/14/17 10:14 12/18/16 03:18 50 MLS/HR Tramadol HCl (Ultram Tab) 50 mg Q4H PRN PO 12/16/16 08:15 01/15/17 08:14 12/17/16 00:52 50 MG Metronidazole HCl 2 appln 2 appln PRN PRN PV 12/18/16 02:30 12/28/16 02:29 Acetaminophen/ Empty Bag (Ofirmev IV/ Empty Iv Bag 100ml) 65 ml @ 260 mls/hr Q6H PRN IV 12/18/16 13:15 01/17/17 13:14 UNV Review of Systems Constitutional: + fatigue, + weakness, No chills, No fever, No sweats, No weight loss Eyes: No diplopia, No discharge, No eye pain, No problem reported, No redness, No worsening of vision ENT: No dental problems, No hearing loss, No nasal symptoms, No problem reported, No sore throat, No tinnitus, No trouble swallowing, No unusual epistaxis Respiratory: + dyspnea on exertion, No cough, No dyspnea at rest, No hemoptysis , No problem reported, No shortness of breath, No sputum, No wheezing Cardiovascular: No PND, No chest pain, No claudication, No edema, No orthopnea , No palpitations, No problem reported Abdomen: + constipation, + nausea, + pain, + vomiting, No GI bleeding, No diarrhea Musculoskeletal: No calf pain, No joint pain, No muscle pain, No problem reported, No swelling Genitourinary - Female: No dysuria, No urinary frequency, No urinary incontinence, No urinary urgency Neurologic: + weakness, No balance problems, No memory loss, No numbness/ tingling, No paralysis, No problem reported, No vertigo Psychiatric: No anhedonism, No anxiety, No depression symptoms, No insomnia, No problem reported, No substance abuse Endocrine: No excessive thirst, No excessive urination, No fatigue, No problem reported Hematologic / Lymphatic: No abnormal bleeding/bruising, No clotting problems, No night sweats, No problem reported, No swollen lymph nodes Integumentary: No bleeding, No color change, No itch, No new/changing skin lesions, No problem reported, No rash Allergic / Immunologic: + seasonal allergies, No environmental allergies, No food allergies, No frequent infections, No hives, No pet sensitivities, No poor healing, No problem reported, No prolonged convalescence Physical Exam Date Time Temp Pulse Resp B/P Pulse Ox O2 Delivery O2 Flow Rate FiO2 12/18/16 12:03 37.0 93 26 129/60 98 Nasal Cannula 2.0 12/18/16 08:05 22 12/18/16 08:04 Nasal Cannula 2.0 12/18/16 07:55 74 154/50 98 12/18/16 07:46 36.6 78 16 154/64 99 Nasal Cannula 2.0 Humidified Oxygen 12/18/16 07:17 36.4 83 32 156/64 99 Nasal Cannula 2.0 Humidified Oxygen 12/17/16 23:40 Room Air 12/17/16 22:59 37.0 80 15 151/61 95 Room Air 12/17/16 15:42 36.8 74 16 155/62 92 Room Air 12/17/16 15:31 Room Air General Appearance: WD/WN, no apparent distress Head: normocephalic, atraumatic Eyes: normal inspection, EOMI, sclerae normal ENT: normal ENT inspection, hearing grossly normal, pharynx normal Neck: supple, no adenopathy, no JVD, trachea midline Respiratory/Chest: chest non-tender, no respiratory distress, no accessory muscle use, + decreased breath sounds (bases) Cardiovascular: regular rate, rhythm, no edema, no gallop, no JVD, no murmur, normal peripheral pulses Abdomen/GI: soft, no organomegaly, + tenderness (diffuse, no rebound or rigidity), + abnormal bowel sounds (hypoactive bowel sounds) Back: normal inspection, no CVA tenderness, no muscle spasm, normal range of motion Extremities/Musculoskelatal: normal inspection, no calf tenderness, normal capillary refill, no pedal edema, normal range of motion, pelvis stable Neurologic/Psych: control specialist II-XII nml as tested, no motor/sensory deficits, alert, normal mood/affect, normal reflexes, oriented x 3 Skin: normal color, warm/dry, no rash Laboratory Results EKG: sinus rhythm, some mild TW inversions lateral leads, no ST elevations KUB CLINICAL HISTORY: Respiratory arrest. Abdominal pain. COMPARISON STUDY: No previous studies for comparison. FINDINGS: Postsurgical changes are visualized. There is a left upper quadrant drain. No free air is visualized on the supine study. It should be noted that supine studies are insensitive for the detection of free intraperitoneal air. There are mildly prominent small bowel loops. IMPRESSION: 1. Postsurgical changes 2. Borderline dilated small bowel loops 3. No free air identified however a supine study is insensitive for the detection of free intraperitoneal air. CHEST ONE VIEW PORTABLE HISTORY: look for free air COMPARISON: Chest 09/04/2016. FINDINGS: There is free air underneath the right hemidiaphragm. There is an epigastric/left upper quadrant surgical drain and midline skin cristine. Therefore, this is likely related to postoperative change at this time. The heart is borderline enlarged. No pneumothorax. Patchy bibasilar densities. No evidence for pulmonary edema. No significant pleural effusions. IMPRESSION: 1. There is free air beneath the right hemidiaphragm. There is a surgical drain and midline skin cristine at the abdomen. Therefore, this favors postoperative change at this time. 2. Patchy bibasilar densities. This may represent atelectasis or pneumonia. Last 24 Hours Test 12/18/16 06:51 12/18/16 11:02 White Blood Count 6.93 K/uL Red Blood Count 3.42 M/uL Hemoglobin 9.8 g/dL Hematocrit 29.2 % Mean Corpuscular Volume 85.4 fL Mean Corpuscular Hemoglobin 28.7 pg Mean Corpuscular Hemoglobin Concent 33.6 g/dl Platelet Count 483 K/uL Mean Platelet Volume 8.8 fL Neutrophils (%) (Auto) 56.5 % Lymphocytes (%) (Auto) 33.6 % Monocytes (%) (Auto) 7.6 % Eosinophils (%) (Auto) 1.6 % Basophils (%) (Auto) 0.3 % Neutrophils # (Auto) 3.91 K/uL Lymphocytes # (Auto) 2.33 K/uL Monocytes # (Auto) 0.53 K/uL Eosinophils # (Auto) 0.11 K/uL Basophils # (Auto) 0.02 K/uL RDW Standard Deviation 43.0 fL RDW Coefficient of Variation 13.9 % Immature Granulocyte % (Auto) 0.4 % Immature Granulocyte # (Auto) 0.03 K/uL Sodium Level 141 mmol/L Potassium Level 3.5 mmol/L Chloride Level 106 mmol/L Carbon Dioxide Level 26 mmol/L Anion Gap 9.0 mmol/L Blood Urea Nitrogen 8 mg/dl Creatinine 0.67 mg/dl Est Creatinine Clear Calc Drug Dose 54.0 ml/min Estimated GFR () 93.6 Estimated GFR (Non- 80.7 BUN/Creatinine Ratio 11.5 Random Glucose 99 mg/dl Calcium Level 7.9 mg/dl Total Bilirubin 0.3 mg/dl Aspartate Amino Transf (AST/SGOT) 12 U/L Alanine Aminotransferase (ALT/SGPT) 19 U/L Alkaline Phosphatase 72 U/L Total Protein 5.8 gm/dl Albumin 2.1 gm/dl Globulin 3.7 gm/dl Albumin/Globulin Ratio 0.6 Troponin I 0.026 ng/ml Assessment & Plan 86 yo female with history of HTN, GERD, hyperlipidemia and allergies, s/p transverse colectomy POD #5 with syncope while in bed associated with abdominal pain - Syncope: most likely vasovagal with pain and nausea and passing gas prior to the event EKG shows some TW inversions in lateral leads, no chest pain reported then or now, troponin 0.026 will order echo, repeat EKG and troponin in the morning or if she has any chest pain or further syncope no focal neurologic deficits on exam, will not perform CT head - s/p transverse colectomy, liver biopsy, POD #5 management per surgery some slightly dilated loops of small bowel on KUB, hypoactive bowel sounds, perhaps ileus? feel that the pain and nausea contributed to her syncope - HTN: BP stable, try to take Norvasc if nausea subsides cannot use PRN Hydralazine or Vasotec due to allergies will continue to follow, check EKG and troponin in the AM and perform echo
[2016-12-18] MEDS: HYDROCORTISONE HC 2.5% CRM 30GM TUBE EXT PRN ×3 (14:13→18:21)
[2016-12-18] MEDS: ACETAMINOPHEN IV 650 MG in EMPTY BAG 0 ML IV PRN ×2 (15:45→21:50)
[2016-12-18 16:07] VITALS: BP 145/61; PULSE 95; TEMP 36.8; O2SAT 100
--- NOTE | 2016-12-18 16:41 | ECHOCARDIOGRAM REPORT ---
*NOTICE TO RECEIVING LIBERTARIAN AGENCY This information is strictly Confidential and protected under [place] law. [place] law prohibits you from making any further disclosure of this information unless further disclosure is expressly permitted by the written consent of the person to whom it pertains or is authorized by law. A general authorization for the release of medical or other information is not sufficient for this purpose. Hospital accepts no responsibility if the information is made available to any other person, INCLUDING THE PATIENT. Interpretation Summary * Name: PATY REYNOSO Study Date: 12/18/2016 03:24 PM BP: 129/60 mmHg * Patient Location: .[facility] [place]\S\N385\S\2 HR: 91 * : 1930 (M/d/yyy) Gender: Female Height: 64 in * Age: 86 yrs Ethnicity: [place] Weight: 139 lb * Ordering Physician: Naldo Thornton * Referring Physician: Andrey Lomax D.O. * Performed By: Jade Ceja RCS * * Reason For Study: SYNCOPE / S/P OPEN TRANSVERSE COLECTOMY / OMENTECTOMY * BSA: 1.7 m2 * -- Conclusions -- * Left ventricular systolic function is normal. * No regional wall motion abnormalities noted. * Ejection Fraction = 60-65%. * There is moderate concentric left ventricular hypertrophy. * Diastolic dysfunction, Grade II (pseudonormalization pattern). * No significant valvular pathology. Procedure Details * A complete two-dimensional transthoracic echocardiogram was performed (2D, M-mode, Doppler and color flow Doppler). * There were technical limitations due to patient'spoor positioning Left Ventricle * The left ventricle is normal in size. * There is moderate concentric left ventricular hypertrophy. * Left ventricular systolic function is normal. * Ejection Fraction = 60-65%. * No regional wall motion abnormalities noted. Right Ventricle * The right ventricle is not well visualized. Atria * The left atrial size is normal. * Right atrial size is normal. * There is no evidence of atrial septal defect, but resolution does not allow assessment for a patent foramen ovale. Mitral Valve * The mitral valve is grossly normal. * There is no mitral valve stenosis. * Significant mitral regurgitation is absent. Tricuspid Valve * The tricuspid valve is not well visualized, but is grossly normal. * Significant tricuspid regurgitation is absent. Aortic Valve * The aortic valve is not well visualized. * The aortic valve opens well. * Aortic valve sclerosis mild, without significant aortic valvular stenosis. Pulmonic Valve * The pulmonary valve is not well seen, but the Doppler examination is normal without significant regurgitation or stenosis. Great Vessels * The aortic root is normal size. Pericardium/Pleural * There is an anterior echo free space consistent with either a pericardial fat pad or a hemodynamically insignificant pericardial effusion. Great Vessels * IVC not well seen. Left Ventricular Diastolic Function * Diastolic dysfunction, Grade II (pseudonormalization pattern). MMode 2D Measurements and Calculations IVSd 1.2 cm IVSs 1.9 cm LVIDd 3.5 cm LVIDs 2.3 cm LVPWd 1.2 cm LVPWs 1.4 cm IVS/LVPW 1.0 FS 33.4 % EDV(Teich) 49.6 ml ESV(Teich) 18.3 ml EF(Teich) 63.2 % EDV(cubed) 41.5 ml ESV(cubed) 12.3 ml EF(cubed) 70.4 % % IVS thick 52.8 % % LVPW thick 16.1 % LV mass(C)d 138.2 grams LV mass(C)dI 82.5 grams/m\S\2 LV mass(C)s 136.9 grams LV mass(C)sI 81.7 grams/m\S\2 SV(Teich) 31.3 ml SI(Teich) 18.7 ml/m\S\2 SV(cubed) 29.3 ml SI(cubed) 17.5 ml/m\S\2 Ao root diam 3.5 cm Ao root area 9.7 cm\S\2 ACS 1.7 cm LVOT diam 1.6 cm LVOT area 1.9 cm\S\2 Doppler Measurements and Calculations MV E max levy 75.0 cm/sec MV A max levy 117.6 cm/sec MV E/A 0.64 MV P1/2t max levy 77.7 cm/sec MV P1/2t 64.3 msec MVA(P1/2t) 3.4 cm\S\2 MV dec slope 353.7 cm/sec\S\2 MV dec time 0.23 sec Ao V2 max 130.7 cm/sec Ao max PG 6.8 mmHg Ao max PG (full) 4.3 mmHg SANTANA(V,A) 1.1 cm\S\2 SANTANA(V,D) 1.1 cm\S\2 AI max levy 330.7 cm/sec AI max PG 43.8 mmHg AI dec slope 260.8 cm/sec\S\2 AI P1/2t 371.5 msec LV V1 max PG 2.5 mmHg LV V1 max 78.7 cm/sec PA V2 max 120.1 cm/sec PA max PG 5.8 mmHg TR max levy 255.4 cm/sec
[2016-12-18] MEDS ORDERED: ANUSOL SUPP 1 EA PR PRN (20:15)
[2016-12-18 23:40] VITALS: BP 101/58; PULSE 112; TEMP 36.9; O2SAT 100
[2016-12-19] VITALS (7 sets, daily range): BP systolic 102–114; BP diastolic 48–64; PULSE 95–110; TEMP 36.3–36.6; O2SAT 94–99
[2016-12-19] MEDS: ONDANSETRON INJ 2 MG/ML 2 ML VIAL IV PRN ×2 (00:38→08:16)
[2016-12-19] MEDS: ACETAMINOPHEN IV 650 MG in EMPTY BAG 0 ML IV PRN ×3 (04:03→18:38)
[2016-12-19] MEDS: METOCLOPRAMIDE HCL INJ 5 MG/ML 2 ML VIAL IV. PRN (04:11)
--- NOTE | 2016-12-19 07:59 | Hospitalist Progress Note ---
Hospitalist Progress Note Date of Service Dec 19, 2016. Subjective Pt evaluation today including: conversation w/ patient, conversation w/ family , physical exam, chart review, lab review, review of studies, review of inpatient medication list Pain: abdominal 4/10 PO Intake: clears Voiding: hilario catheter in place The patient was seen and examined this morning. Pt reports doing pretty well. She has no acute complaints this morning. Her pain is well controlled, rated 4/ 10 currently. She states was nauseous earlier this morning and her son, present at bedside states she vomited this morning, pt says there were no coffee ground emesis, no blood. She is on a clear liquid diet and has not been nauseous since this morning. She is not passing gas, no bowel movement yet. Constitutional: No chills, No fever, No sweats Eyes: No diplopia, No redness ENT: No nasal symptoms Respiratory: No cough, No shortness of breath Cardiovascular: No chest pain, No palpitations Abdomen: + nausea, + pain, + vomiting, No constipation, No diarrhea Musculoskeletal: No joint pain, No swelling Female : + problem reported (hilario catheter in place), No dysuria Neurologic: No numbness/tingling, No weakness Skin: No itch, No rash Objective Vital Signs Date Time Temp Pulse Resp B/P Pulse Ox O2 Delivery O2 Flow Rate FiO2 12/19/16 07:48 36.3 110 16 110/48 97 Room Air 12/19/16 05:41 107 112/64 12/19/16 04:08 107 112/57 99 Nasal Cannula 2.0 12/18/16 23:40 36.9 112 17 101/58 100 Nasal Cannula 2.0 12/18/16 23:35 Nasal Cannula 2.0 Humidified Oxygen 12/18/16 16:07 36.8 95 16 145/61 100 Nasal Cannula 2.0 Humidified Oxygen 12/18/16 15:52 Nasal Cannula 2.0 12/18/16 12:03 37.0 93 26 129/60 98 Nasal Cannula 2.0 12/18/16 08:05 22 12/18/16 08:04 Nasal Cannula 2.0 12/18/16 07:55 74 154/50 98 Physical Exam General Appearance: WD/WN, no apparent distress, + thin Eyes: PERRL, EOMI ENT: hearing grossly normal, pharynx normal Neck: supple, no JVD Respiratory/Chest: no respiratory distress, no accessory muscle use, + pertinent finding (diminished breath sounds at bases, no crackles or other adventitious breath sounds) Cardiovascular: regular rate, rhythm, no JVD, no murmur Abdomen: soft, + pertinent finding (+ verticle incision mid abdomen with cristine in tact, FRANCINE drain in LLQ, + hypoactive bowel sounds, + mildly distended , tender to palpation throughout) Extremities: non-tender, no pedal edema, no calf tenderness Neurologic/Psychiatric: alert, normal mood/affect, oriented x 3 Skin: normal color, warm/dry Laboratory Results Last 24 Hours Test 12/18/16 11:02 12/19/16 04:44 Troponin I 0.026 ng/ml Assessment and Plan 86 yo female with history of HTN, GERD, hyperlipidemia and allergies, s/p transverse colectomy POD #6 with syncope while in bed associated with abdominal pain Syncope: most likely vasovagal with pain and nausea and passing gas prior to the event - EKG shows some TW inversions in lateral leads, no chest pain reported then or now, troponin 0.026 - Echo completed: * -- Conclusions -- * Left ventricular systolic function is normal. * No regional wall motion abnormalities noted. * Ejection Fraction = 60-65%. * There is moderate concentric left ventricular hypertrophy. * Diastolic dysfunction, Grade II (pseudonormalization pattern). * No significant valvular pathology. - Repeat EKG with ST wave inversions in the lateral leads, not as present in the lateral leads as yesterday - Follow troponin, first=0.026, second =0.023, negative. - Pt denies any cardiac complaints this morning. s/p transverse colectomy, liver biopsy, - Completed on 12/[address] Lomax, POD #6 - management per surgery Ileus? - some slightly dilated loops of small bowel on KUB on 12/18, hypoactive bowel sounds - pt vomited x 1 this morning, not passing gas or had bm today, pt feels soreness throughout, she has been tolerating a clear liquid diet though since this am. - feel that the pain and nausea contributed to her syncope HTN: - BP stable, try to take Norvasc if nausea subsides - cannot use PRN Hydralazine or Vasotec due to allergies Vaginitis/ Lichen plantus - Silk Finisher consulted- appreciate recs - Dr. Angeles spoke with me after seeing the pt. He thinks this is likely vaginitis related to the antibiotics shes on and adjusted her meds - ordered flagyl and calmoseptine ointment, Culture was obtained and should be back by tomorrow. CODE STATUS: FULL CODE Disposition: From home, lives with
[2016-12-19] MEDS ORDERED: SODIUM CHLORIDE 0.9% 1000 ML BAG IV ONE (08:10)
--- NOTE | 2016-12-19 08:12 | Surgery Progress Note ---
Surgery Progress Note Date of Service Dec 19, 2016. Subjective Post OP Day: 6 + diet (full liquids), + flatus (decreased), + nausea (given zofran, reglan), + vomiting (300 cc overnight), No bowel movement Objective Vital Signs: Date Time Temp Pulse Resp B/P Pulse Ox O2 Delivery O2 Flow Rate FiO2 12/19/16 07:48 36.3 110 16 110/48 97 Room Air 12/19/16 05:41 107 112/64 12/19/16 04:08 107 112/57 99 Nasal Cannula 2.0 12/18/16 23:40 36.9 112 17 101/58 100 Nasal Cannula 2.0 12/18/16 23:35 Nasal Cannula 2.0 Humidified Oxygen 12/18/16 16:07 36.8 95 16 145/61 100 Nasal Cannula 2.0 Humidified Oxygen 12/18/16 15:52 Nasal Cannula 2.0 12/18/16 12:03 37.0 93 26 129/60 98 Nasal Cannula 2.0 Physical Exam: FRANCINE drainage (5 cc, serous), urine output (75 cc) Abdomen: soft, + distended (slighlty) Incision(s): clean, dry Laboratory Results: Results Past 24 Hours Test 12/18/16 11:02 12/19/16 07:49 Range/Units Troponin I 0.026 0-0.045 ng/ml Assessment & Plan s/p transverse colectomy will go back to clears, bowel function not keeping up ambulate antiemetics prn UOP down, will increase IVF as she is not taking as much po acute on chronic anemia H&H stable syncope, likely vasovagal EKG & echo noted, AM troponin pending medicine following
[2016-12-19] MEDS: TELMISARTAN 40 MG TAB PO SCH (09:46)
[2016-12-19] MEDS: PANTOprazole INJ 40 MG in SYRINGE 0 ML IV SCH (09:47)
[2016-12-19] MEDS: PENTOSAN POLYSULFATE SODIUM 100 MG CAP PO SCH ×2 (09:47→20:44)
[2016-12-19] MEDS: KETOTIFEN FUMARATE (ZADITOR) 0.025% 5 ML BTL OP SCH ×2 (09:48→20:47)
[2016-12-19] MEDS: FLUTICASONE FUROATE-VILANTEROL 200/25 MCG INH IN SCH (09:48)
[2016-12-19] MEDS: AMLODIPINE BESYLATE 5 MG TAB PO SCH (09:49)
--- NOTE | 2016-12-19 11:48 | GYNECOLOGICAL CONSULTATION ---
DATE OF CONSULTATION: 12/19/2016 DATE OF CONSULTATION: 12/19/2016. HISTORY OF PRESENT ILLNESS: Kadie had recent surgery and is followed by the medical and general surgical team. She has an ongoing history of lichen planus and has been treated by Dr. Alvarez in the office for this. She states that she typically has burning symptoms and they have been worse over the last few days, her surgery was approximately 5 days ago. She does not report any discharge or bleeding and says the irritation is primarily at the introitus and inside, less of it is external. PAST OFFICE CORRESPONDENT HISTORY: Ongoing lichen planus treated by Dr. Alvarez. She has been treated in the past with Clobetasol, metronidazole and soothing agent Calmoseptine. She has been using that as she brought them in but not on a regular basis. PHYSICAL EXAMINATION: Was done with nursing. External genitalia the labia minora is absent. There is minimal redness or discharge. Exam is done at bedside, looking in the vagina there is some minimal discharge likely from recent metronidazole insertion. I have done a general culture swab, but no obvious evidence of infection or lichen sclerosus or lichen planus flareup. IMPRESSION AND PLAN: I will adjust her medications to metronidazole once daily. The Calmoseptine will be ordered and clobetasol, which is nonformulary at the hospital, will be ordered twice a day. Cultures done too. If there is a genital infection we will address this.
[2016-12-19] MEDS: MENTHOL-ZINC OXIDE 360 APPLN/120 GM TUBE EXT SCH (12:11)
[2016-12-19] MEDS: METRONIDAZOLE VAG 0.75% PV SCH (12:11)
[2016-12-19] MEDS: SODIUM CHLOR 0.45% + 20MEQ KCL 1,000 ML IV SCH ×2 (12:43→20:46)
[2016-12-19] MEDS: ANUSOL SUPP 1 EA PR PRN ×2 (12:44→21:04)
--- NOTE | 2016-12-19 14:03 | DIAGNOSTIC IMAGING REPORT ---
KUB CLINICAL HISTORY: ileus COMPARISON STUDY: 12/18/2016 FINDINGS: There is a left upper quadrant surgical drain. There are anterior skin cristine. There are surgical anastomotic suture lines within the left mid abdomen. There are suspected free intraperitoneal air. There is gaseous distention of small bowel loops. IMPRESSION: 1. Free intraperitoneal air 2. Progressive small bowel distention, with bowel loops measuring up to 5 cm. Electronically signed by: Grabiel Del Toro M.D. 12/19/2016 2:01 PM Dictated Date/Time: 12/19/2016 1:59 PM
[2016-12-19] MEDS: CLOBETASOL PROPIONATE 0.05% EXT SCH (20:45)
[2016-12-20] MEDS: ACETAMINOPHEN IV 650 MG in EMPTY BAG 0 ML IV PRN ×3 (01:10→18:54)
[2016-12-20] MEDS: METOCLOPRAMIDE HCL INJ 5 MG/ML 2 ML VIAL IV. PRN (05:36)
[2016-12-20] MEDS ORDERED: SODIUM CHLORIDE 0.9% 500ML 500 ML IV STA (06:12)
[2016-12-20] MEDS ORDERED: NURSING VERBAL MED ORDER ONE ×3 (06:15→19:00)
[2016-12-20] MEDS: SODIUM CHLOR 0.45% + 20MEQ KCL 1,000 ML IV SCH ×2 (07:20→13:15)
[2016-12-20] MEDS: ONDANSETRON INJ 2 MG/ML 2 ML VIAL IV PRN (07:28)
[2016-12-20 07:56] LABS: CREATININE 2.6 mg/dl (0.60-1.20)
[2016-12-20 08:30] VITALS: BP 105/53; PULSE 90; TEMP 36.6; O2SAT 96
[2016-12-20] MEDS: CLOBETASOL PROPIONATE 0.05% EXT SCH ×2 (09:00→21:38)
[2016-12-20] MEDS: FLUTICASONE FUROATE-VILANTEROL 200/25 MCG INH IN SCH (09:03)
[2016-12-20] MEDS: MENTHOL-ZINC OXIDE 360 APPLN/120 GM TUBE EXT SCH (09:03)
[2016-12-20] MEDS: KETOTIFEN FUMARATE (ZADITOR) 0.025% 5 ML BTL OP SCH ×2 (09:04→20:05)
[2016-12-20] MEDS: TELMISARTAN 40 MG TAB PO SCH (09:05)
[2016-12-20] MEDS: AMLODIPINE BESYLATE 5 MG TAB PO SCH (09:10)
[2016-12-20] MEDS: PENTOSAN POLYSULFATE SODIUM 100 MG CAP PO SCH ×2 (09:10→21:37)
[2016-12-20] MEDS: METRONIDAZOLE VAG 0.75% PV SCH (09:11)
[2016-12-20] MEDS ORDERED: TPN/PPN CONSULT PHARMACY PRN (09:58)
--- NOTE | 2016-12-20 10:14 | Progress Note ---
Subjective Date of Service: Dec 20, 2016. Subjective Pt evaluation today including: conversation w/ patient, physical exam, lab review, conversation w/ strategy consultant, review of inpatient medication list Pain: abdominal pain PO Intake: poor, nauseated Voiding: hilario catheter in place patient got up to chair, had diaphoresis, nausea, light headed, placed back in bed getting worse, less PO intake, continued pain, no BM surgery aware of issues, ordered NGT for today I saw patient when back in bed, denies chest pain, shortness of breath I reviewed lab work, Cr up to 2.1, RN discussed that UO low on fluids at 100cc/hr, received bolus yesterday ordered EKG this AM, troponin, full BMP since only Cr was checked CBC pending Problem List Medical Problems: (1) Urinary tract infection Status: Acute (2) Vaginal burning Status: Acute Review of Systems Constitutional: + chills, + fatigue, + sweats, + weakness Abdomen: + constipation, + nausea, + pain Neurologic: + vertigo, + weakness All Other Systems: Reviewed and Negative Medications Current Inpatient Medications Medications (Trade) Dose Ordered Sig/Aleksander Route Start Time Stop Time Status Last Admin Dose Admin Ondansetron HCl (Zofran Inj) 4 mg Q6H PRN IV 12/13/16 15:00 01/12/17 14:59 12/20/16 07:28 4 MG Albuterol (Ventolin Hfa Inhaler) 2 puffs Q4 PRN INH 12/13/16 15:00 01/12/17 14:59 Amlodipine Besylate (Norvasc Tab) 10 mg QAM PO 12/14/16 09:00 01/13/17 08:59 12/20/16 09:10 10 MG Fluticasone Propionate (Flonase Nasal [place]) 2 sprays DAILY PRN LARRY 12/13/16 15:00 01/12/17 14:59 Loratadine (Claritin Tab) 10 mg DAILY PRN PO 12/13/16 15:00 01/12/17 14:59 Telmisartan (Micardis Tab) 80 mg QAM PO 12/14/16 09:00 01/13/17 08:59 12/20/16 09:05 80 MG Pentosan Polysulfate Sodium (Elmiron) 100 mg BID PO 12/13/16 21:00 01/12/17 20:59 12/20/16 09:10 100 MG Metoclopramide HCl (Reglan Inj) 10 mg Q6H PRN IV. 12/13/16 19:15 01/12/17 19:14 12/20/16 05:36 10 MG Fluticasone/ Vilanterol (Breo Ellipta 200-25 Mcg/Inh) 1 inha DAILY IN 12/14/16 09:00 01/13/17 08:59 12/20/16 09:03 1 INHA Ketotifen Fumarate (Zaditor 0.025% Op Soln) 1 drops Q12 OP 12/14/16 09:00 01/13/17 08:59 12/20/16 09:04 1 DROPS Hydrocortisone 1 appln 1 appln [id number] PRN EXT 12/14/16 07:15 01/13/17 07:14 Future Hold 12/18/16 18:21 1 APPLN Pantoprazole Sodium 40 mg/ Syringe 10 ml @ 5 mls/min DAILY@11 IV 12/15/16 11:00 01/14/17 10:59 12/19/16 09:47 5 MLS/MIN Potassium Chloride/Sodium Chloride (/2 Nss + 20meq KCl 1000ml) 1,000 ml @ 100 mls/hr Q10H IV 12/15/16 10:15 01/14/17 10:14 12/20/16 07:20 100 MLS/HR Tramadol HCl 50 mg 50 mg Q4H PRN PO 12/16/16 08:15 01/15/17 08:14 12/17/16 00:52 50 MG Acetaminophen/ Empty Bag (Ofirmev IV/ Empty Iv Bag 100ml) 65 ml @ 260 mls/hr Q6H PRN IV 12/18/16 13:15 01/17/17 13:14 12/20/16 07:17 260 MLS/HR Hard Fat/ Phenylephrine (Anusol Supp) 1 ea BID PRN AL 12/19/16 09:00 01/18/17 08:59 12/19/16 21:04 1 EA Metronidazole HCl (Metrogel Vag Gel) 2 appln DAILY PV 12/20/16 09:00 12/30/16 08:59 12/20/16 09:11 2 APPLN Menthol/Zinc Oxide (Calmoseptine Oint) 1 appln DAILY EXT 12/20/16 09:00 01/19/17 08:59 12/20/16 09:03 1 APPLN Clobetasol Propionate (Clobetasol Propionate Oint) 1 appln BID EXT 12/19/16 21:00 01/18/17 20:59 12/20/16 09:00 1 APPLN Miscellaneous Information (Pharmacy Tpn/ Ppn Consult Active) 1 ea UD PRN N/A 12/20/16 09:58 01/19/17 09:57 Objective Vital Signs Date Time Temp Pulse Resp B/P Pulse Ox O2 Delivery O2 Flow Rate FiO2 12/20/16 08:30 36.6 90 105/53 96 Room Air 12/20/16 07:50 Room Air 12/19/16 23:30 Room Air 12/19/16 23:24 36.6 95 18 102/55 94 Room Air 12/19/16 19:30 Room Air 12/19/16 16:22 36.6 107 16 114/59 95 Room Air 12/19/16 16:00 Room Air Physical Exam General Appearance: WD/WN, + mild distress Eyes: normal inspection, EOMI, sclerae normal ENT: normal ENT inspection, hearing grossly normal, pharynx normal Neck: supple, no adenopathy, no JVD, trachea midline Respiratory/Chest: chest non-tender, lungs clear, normal breath sounds, no respiratory distress, no accessory muscle use Cardiovascular: regular rate, rhythm, no edema, no gallop, no JVD, no murmur Abdomen: soft, no organomegaly, + abnormal bowel sounds (hypoactive), + distended, + guarding, + tenderness Extremities: normal range of motion, non-tender, normal inspection, no pedal edema, no calf tenderness, pelvis stable Neurologic/Psychiatric: auto claim representative II-XII nml as tested, no motor/sensory deficits, alert, normal mood/affect, oriented x 3 Skin: normal color, warm/dry, no rash Lymphatic: no adenopathy Laboratory Results Last 24 Hours Test 12/20/16 07:10 12/20/16 08:47 12/20/16 09:57 12/20/16 09:58 Blood Urea Nitrogen 42 mg/dl Creatinine 2.60 mg/dl Est Creatinine Clear Calc Drug Dose 13.9 ml/min Estimated GFR () 18.9 Estimated GFR (Non- 16.3 BUN/Creatinine Ratio 16.0 Bedside Glucose 103 mg/dl Assessment and Plan 86 yo female with history of HTN, GERD, hyperlipidemia and allergies, s/p transverse colectomy POD #5 with syncope while in bed associated with abdominal pain - s/p transverse colectomy, liver biopsy, POD #7 getting worse, ileus, no BM, vomiting, plan for NGT abdomen softly distended, no bowel sounds on my exam check Lactic acid, will update surgery if elevated will get a KUB after NGT for placement no signs of acute abdomen at this time - GABRIEL: likely prerenal, low UO, will check UA, urine studies, continue fluids at 100cc/hr follow UO, check electrolytes - Diaphoresis, light headed: check another EKG and troponin - Syncope: reason for initial consult, occurred on 12/18 most likely vasovagal with pain and nausea and passing gas prior to the event EKG shows some TW inversions in lateral leads, no chest pain reported then or now, troponin 0.026 will order echo, repeat EKG and troponin in the morning or if she has any chest pain or further syncope no focal neurologic deficits on exam, will not perform CT head
[2016-12-20 10:51] LABS: MEAN CELL VOLUME 84.7 fL (80-100); MEAN CORPUSCULAR HEMOGLOBIN 29.1 pg (25-34); MEAN CORPUSCULAR HGB CONC 34.3 g/dl (32-36); MEAN PLATELET VOLUME 9.3 fL (7.4-10.4); PLATELET COUNT 485 K/uL (130-400); RED BLOOD COUNT 3.54 M/uL (4.2-5.4); WHITE BLOOD COUNT 11.28 K/uL (4.8-10.8)
[2016-12-20] MEDS: PANTOprazole INJ 40 MG in SYRINGE 0 ML IV SCH (10:58)
[2016-12-20 11:19] LABS: BUN/CREATININE RATIO 16.6 (10-20); CREATININE 2.7 mg/dl (0.60-1.20); POTASSIUM 4.6 mmol/L (3.5-5.1)
[2016-12-20 11:21] LABS: BASO % 0.1 %; BASO ABS # 0.01 K/uL (0-0.2); COMPLETE YES; IG% 0.5 %; LYMPH % 5.9 %; LYMPH ABS # 0.67 K/uL (1.2-3.4); MONO % 3.7 %; NEUT % 89.8 %
[2016-12-20 11:23] LABS: ECHINOCYTES 1+
[2016-12-20 11:47] LABS: MAGNESIUM 1.6 mg/dl (1.8-2.4); PHOSPHORUS 4.1 mg/dl (2.5-4.9)
[2016-12-20 12:08] LABS: URINE APPEARANCE TURBID (CLEAR); URINE BILIRUBIN NEG (NEG); URINE COLOR DK YELLOW; URINE NITRITE NEG (NEG); URINE SPECIFIC GRAVITY 1.025 (1.000-1.030); UROBILINOGEN NEG (NEG)
[2016-12-20 12:10] LABS: MANUAL MICROSCOPIC REQUIRED? NO; REVIEW REQ? YES
[2016-12-20 12:17] LABS: URINE EPITHELIAL CELL AUTO 0-5 /lpf (0-5)
[2016-12-20] MEDS ORDERED: DEXTROSE 10% 1,000 ML IV PRN (13:10)
--- NOTE | 2016-12-20 13:31 | Pharmacy Progress Note ---
Parenteral Nutrition Consult Date of Service Dec 20, 2016. [facility] has been consulted to manage parenteral nutrition orders and order appropriate labs. As part of the Nutrition Support Team guidelines, pharmacy will work in conjunction with dietary when determining the patients caloric needs. 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 Patient is to receive parenteral nutrition for NPO for multiple days, post op ileus. Objective Height (Feet): 5 Height (Inches): 4.00 Weight (Kilograms): 63.180 Diet: Clear Liquid Vascular Access: Peripheral deemed to not be useable for PPN PICC line placed 12/20/16 Intake & Output (Last 72 Hr): 12/18/16 12/19/16 12/20/16 08:00 08:00 08:00 Intake Total 2573 ml 2084 ml 3230 ml Output Total 4065 ml 1690 ml 840 ml Balance -1492 ml 394 ml 2390 ml Additional Fluid Losses/Gains: * FRANCINE drain: Intake & Output Label Value Date Time Output, Drainage Amount 25 ml 12/19/16 0000(24 hrs) Output, Drainage Amount 110 ml 12/18/16 0000(24 hrs) Output, Drainage Amount 205 ml 12/17/16 0000(24 hrs) * NG tube reinserted 12/20/16 Laboratory Data (Last 24 Hr): Test 12/20/16 07:10 12/20/16 10:40 Blood Urea Nitrogen 42 mg/dl (7-18) 45 mg/dl (7-18) Creatinine 2.60 mg/dl (0.60-1.20) 2.70 mg/dl (0.60-1.20) Calcium Level 7.0 mg/dl (8.5-10.1) Carbon Dioxide Level 18 mmol/L (21-32) Chloride Level 101 mmol/L (98-107) Magnesium Level 1.6 mg/dl (1.8-2.4) Phosphorus Level 4.1 mg/dl (2.5-4.9) Potassium Level 4.6 mmol/L (3.5-5.1) Random Glucose 106 mg/dl (70-99) Sodium Level 132 mmol/L (136-145) Nutrition Assessment User: Love Simon RD Date: 12/20/16 11:03 Type: Nutrition Notes Weight Comment * Stable wt reported [employer]IST[employer], however no new wts since 12/13/16 BMI 23.9 WNL Estimated Calorie Needs * ~ 1580 kcal/day or 25 kcal/kg, based on current wt=63.18 kg Protein Requirement * 76-95 g protein or 1.2-1.5 g protein/kg, based on current wt=63.18 kg Fluid Requirement * Per MD discretion; pt has been receiving IVF's @ 100 ml/hr (2400 ml) since 12/15/16. Food and Nutrition Progress * PPN consult received d/t post-op ileus; MD reinserting NGT. Pt's nutritional status has been compromised since adm. (8 days) r/t clinical course and duration of either NPO status or CL diet for > 7 days. Pt. will be at risk for re-feeding syndrome - [facility] notified of same. Mg++ & PO4 level to be ordered today prior to PPN administration; lytes to be repleted as appropriate. Meds: IVF's @ 100 ml/hr, Reglan, Zofran PRN. Labs: 12/20/16 BUN 42(H) Creat 2.6(H), random Glu 103 @ 0847. GI: Abd firm, distended, tender, + NGT to LIS; bile emesis this AM. Diet Rx: CL, though consider changing to NPO status until N/V & ileus resolve. Salty = 17(L), nutrition = 3, though more likely 2 or 1 (L). Will continue to monitor pt closely & follow-up as level of care III. Recommendations D/W [facility] Gabriela this AM. Nutrition Assessment Label * Inadequate Oral Intake * Related To decreased tolerance of meals & altered GI function; NPO/CL diet x 8 days * Evidenced By recent R hemicolectomy; pt with post-op ileus, N/V, distended abd. Intervention/Recommendations * RECOMMENDATIONS: 1. Consider NPO status until N/V and post-op ileus resolve. 2. Pt at risk of re-feeding syndrome (monitor K+, Mg++ & PO4 closely). 3. Replete lytes prior to PPN administration. 4. Provide PPN: 60 g amino acids, 150 g dextrose & 25 g lipids in 2.4 L over 24 hr, providing 1000 kcal (63% kcal needs & 79% protein needs) with dextrose infusion rate of 1.6 mg/kg/min. 5. RPh to add 10 ml MVI, 1 ml MTE-5, 100 mg B1, & other PPN additives PRN. 6. Please obtain wts daily. Continue to monitor I&O's closely. 7. Continue GI motility agent & anti-emetic per GI. 8. RPh to D/C other IVF's while PPN ordered. Nutritional Goals * Electrolytes WNL * Maintain Weight +/- 5 lbs * BG within Target Range * Maintain/Imp Skin Integ * Bowel Regularity * Optimal Nutrition Support Assessment * 86 y/o with decreased to negligible PO intake over the past few days. Nauseated. * at risk for refeeding. * s/p transverse colectomy, postop day #7 * questionable post op ileus * No history of diabetes or CKD * Currently, acute kidney injury * decreased urine output * Will need to closely monitor phosphorus (refeeding/GABRIEL) Plan For day 1 of PN administration, the following will be ordered: Macronutrients Amino acids 60 grams/day Dextrose 125 grams/day Lipids 25 grams/day Micronutrients Combined electrolytes 20 mL - contains 35 mEq Na, 20 meq K, 4.5 mEq Ca, 5 mEq Mg , 35 mEq Cl, 29.5 mEq acetate per 20 mL Sodium phosphate 21 mMol Sodium acetate 20 mEq Potassium acetate 20 mEq Multivitamins 10 mL Trace Elements 10 mL Thiamine 100 mg Notes: * Total volume 2400 mL to be infused over 24 hrs will provide 915 kcal/day * Final osmolarity 599 mOsm/L (maximum for PPN is 600 mOsm/L) * PICC line inserted after order written * current bag can be ran centrally via PICC - OR - peripherally * Labs to be ordered per PN order protocol Pharmacy will follow and adjust parenteral nutrition orders on a daily basis. Thank you.
[2016-12-20] MEDS: MAGNESIUM SULFATE 1GM / D5W 1 GM in PREMIXED IN D5W 100 ML IV SCH ×2 (14:04→15:04)
[2016-12-20 14:17] VITALS: BP 112/56; PULSE 99; TEMP 36.7; O2SAT 93
--- NOTE | 2016-12-20 15:21 | DIAGNOSTIC IMAGING REPORT ---
KUB HISTORY: Generalized Abdominal pain COMPARISON: KUB 12/19/2016. FINDINGS: Nasogastric tube terminates in the mid stomach. Surgical drain within the left upper quadrant is again noted. Midline skin cristine. Multiple dilated gas-filled loops of large and small bowel are again noted. These have slightly improved. Dominant small bowel loop now measures 3.6 cm in diameter. There are suture material within the left side of the abdomen. No renal calculi. No ureteral calculi. Suspect a small amount of pneumoperitoneum. However, this is now well evaluated on this supine study. IMPRESSION: 1. Dilated gas-filled loops of large and small bowel have slightly decompressed compared the prior study. 2. Nasogastric tube terminates in the stomach. 3. Suspect a small amount of pneumoperitoneum. However, this is not well evaluated on this supine study. This appears to have improved and may be related to postoperative change. Electronically signed by: Ken Griggs M.D. 12/20/2016 3:18 PM Dictated Date/Time: 12/20/2016 3:15 PM
[2016-12-20 15:34] VITALS: BP 133/47; PULSE 98; TEMP 36.8; O2SAT 93
[2016-12-20] MEDS ORDERED: PIPERACILL/TAZOBAC CONSULT ACTIVE PRN (15:45)
[2016-12-20] MEDS ORDERED: PIPERACILL/TAZOBAC IV 3.375 GM in DEXTROSE 5% 100ML IV ONE (15:45)
[2016-12-20] MEDS ORDERED: [UNRECOGNIZED DRUG - REMARK] ONE (15:59)
[2016-12-20] MEDS ORDERED: CUSTOM PERIPHERAL PN 1 BAG IV SCH (16:00)
--- NOTE | 2016-12-20 16:17 | Surgery Progress Note ---
Surgery Progress Note Date of Service Dec 20, 2016. Subjective Post OP Day: 7 pt with large bm today. still with nausea/intermittent small bouts of nausea Objective Vital Signs: Date Time Temp Pulse Resp B/P Pulse Ox O2 Delivery O2 Flow Rate FiO2 12/20/16 08:30 36.6 90 105/53 96 Room Air 12/20/16 07:50 Room Air 12/19/16 23:30 Room Air 12/19/16 23:24 36.6 95 18 102/55 94 Room Air 12/19/16 19:30 Room Air 12/19/16 16:22 36.6 107 16 114/59 95 Room Air 12/19/16 16:00 Room Air Physical Exam: FRANCINE drainage (serous/thin) General Appearance: + mild distress Abdomen: soft, + pertinent finding (mild distension. expected tenderness. incsion looks good. FRANCINE scant yellow/serous) Extremities: non-tender Laboratory Results: Results Past 24 Hours Test 12/20/16 07:10 12/20/16 08:47 Range/Units Blood Urea Nitrogen 42 7-18 mg/dl Creatinine 2.60 0.60-1.20 mg/dl Est Creatinine Clear Calc Drug Dose 13.9 ml/min Estimated GFR () 18.9 Estimated GFR (Non- 16.3 BUN/Creatinine Ratio 16.0 10-20 Bedside Glucose 103 70-90 mg/dl Microbiology Results 12/19/16 Gram Stain - Final, Resulted 12/19/16 Genital Culture, Resulted Pending Assessment & Plan 12/20/16 POD #7. bowels have opened up but still has ileus on KUB. will add ngt will start tpn. pod 7 with poor po intake leukocytosis but pt also somewhat dry. will rivas cx and add empiric antibiotics for now. will fluid bolus. repeat labs suspect ileus is main issue with some associated dehydration. will continue to monitor closely.
[2016-12-20] MEDS ORDERED: MAGNESIUM SULFATE 1GM / D5W 1 GM in PREMIXED IN D5W 100 ML IV ONE (17:00)
[2016-12-20] MEDS ORDERED: SODIUM CHLORIDE 0.9% 1000ML 1,000 ML IV SCH ×2 (17:00→19:00)
[2016-12-20] MEDS ORDERED: SODIUM CHLORIDE 0.9% 1000ML 1,000 ML IV ONE (17:00)
[2016-12-20] MEDS ORDERED: SODIUM CHLORIDE 0.9% 1000ML 1,000 ML IV PRN (17:15)
[2016-12-20 17:23] LABS: BUN/CREATININE RATIO 19.1 (10-20); CALCIUM 6.7 mg/dl (8.5-10.1); CREATININE 2.6 mg/dl (0.60-1.20); POTASSIUM 4.7 mmol/L (3.5-5.1)
--- NOTE | 2016-12-20 18:53 | Surgery Progress Note ---
Surgery Progress Note Date of Service Dec 20, 2016. Subjective pt seen with family at bedside. has been more sedate today. wbc elevated as well as creatinine. pt denies abdominal pain. main complaint is "dry mouth" Objective Vital Signs: Date Time Temp Pulse Resp B/P Pulse Ox O2 Delivery O2 Flow Rate FiO2 12/20/16 15:34 36.8 98 33 133/47 93 Room Air 12/20/16 14:17 36.7 99 31 112/56 93 Room Air 12/20/16 08:30 36.6 90 105/53 96 Room Air 12/20/16 08:00 Room Air 12/20/16 07:50 Room Air 12/19/16 23:30 Room Air 12/19/16 23:24 36.6 95 18 102/55 94 Room Air 12/19/16 19:30 Room Air General Appearance: + mild distress Head: + pertinent finding (mm's dry. ) Abdomen: soft, + pertinent finding (mild distension. nontender. FRANCINE scant/ serous) Incision(s): clean, dry Laboratory Results: Results Past 24 Hours Test 12/20/16 07:10 12/20/16 08:47 12/20/16 10:35 12/20/16 10:40 Range/Units Blood Urea Nitrogen 42 45 7-18 mg/dl Creatinine 2.60 2.70 0.60-1.20 mg/dl Est Creatinine Clear Calc Drug Dose 13.9 13.4 ml/min Estimated GFR () 18.9 18.0 Estimated GFR (Non- 16.3 15.6 BUN/Creatinine Ratio 16.0 16.6 10-20 Bedside Glucose 103 70-90 mg/dl Lactic Acid Level 2.6 0.4-2.0 mmol/L White Blood Count 11.28 4.8-10.8 K/uL Red Blood Count 3.54 4.2-5.4 M/uL Hemoglobin 10.3 12.0-16.0 g/dL Hematocrit 30.0 37-47 % Mean Corpuscular Volume 84.7 80-100 fL Mean Corpuscular Hemoglobin 29.1 25-34 pg Mean Corpuscular Hemoglobin Concent 34.3 32-36 g/dl Platelet Count 485 130-400 K/uL Mean Platelet Volume 9.3 7.4-10.4 fL Neutrophils (%) (Auto) 89.8 % Lymphocytes (%) (Auto) 5.9 % Monocytes (%) (Auto) 3.7 % Eosinophils (%) (Auto) 0.0 % Basophils (%) (Auto) 0.1 % Neutrophils # (Auto) 10.12 1.4-6.5 K/uL Lymphocytes # (Auto) 0.67 1.2-3.4 K/uL Monocytes # (Auto) 0.42 0.11-0.59 K/uL Eosinophils # (Auto) 0.00 0-0.5 K/uL Basophils # (Auto) 0.01 0-0.2 K/uL RDW Standard Deviation 46.7 36.4-46.3 fL RDW Coefficient of Variation 14.9 11.5-14.5 % Immature Granulocyte % (Auto) 0.5 % Immature Granulocyte # (Auto) 0.06 0.00-0.02 K/uL Echinocytes 1+ Sodium Level 132 136-145 mmol/L Potassium Level 4.6 3.5-5.1 mmol/L Chloride Level 101 98-107 mmol/L Carbon Dioxide Level 18 21-32 mmol/L Anion Gap 13.0 3-11 mmol/L Random Glucose 106 70-99 mg/dl Calcium Level 7.0 8.5-10.1 mg/dl Phosphorus Level 4.1 2.5-4.9 mg/dl Magnesium Level 1.6 1.8-2.4 mg/dl Troponin I 0.017 0-0.045 ng/ml Test 12/20/16 11:10 12/20/16 16:50 Range/Units Urine Color DK YELLOW Urine Appearance TURBID CLEAR Urine pH 5.0 4.5-7.[address] 1.025 1.000-1.030 Urine Protein 3+ NEG Urine Glucose (UA) NEG NEG Urine Ketones 1+ NEG Urine Occult Blood 3+ NEG Urine Nitrite NEG NEG Urine Bilirubin NEG NEG Urine Urobilinogen NEG NEG Urine Leukocyte Esterase SMALL NEG Urine WBC (Auto) 10-30 0-5 /hpf Urine RBC (Auto) 10-30 0-4 /hpf Urine Hyaline Casts (Auto) 1-5 0-5 /lpf Urine Epithelial Cells (Auto) 0-5 0-5 /lpf Urine Bacteria (Auto) 3+ NEG Urine Pathogenic Casts 0 /lpf Urine Yeast (Auto) BUDDING NONE PRSENT Urine Random Creatinine 100.0 mg/dl Urine Random Sodium 15 mEq/L Sodium Level 129 136-145 mmol/L Potassium Level 4.7 3.5-5.1 mmol/L Chloride Level 100 98-107 mmol/L Carbon Dioxide Level 19 21-32 mmol/L Anion Gap 10.0 3-11 mmol/L Blood Urea Nitrogen 50 7-18 mg/dl Creatinine 2.60 0.60-1.20 mg/dl Est Creatinine Clear Calc Drug Dose 13.9 ml/min Estimated GFR () 18.9 Estimated GFR (Non- 16.3 BUN/Creatinine Ratio 19.1 10-20 Random Glucose 118 70-99 mg/dl Lactic Acid Level 1.6 0.4-2.0 mmol/L Calcium Level 6.7 8.5-10.1 mg/dl Microbiology Results 12/20/16 Blood Culture, Received Pending 12/20/16 Blood Culture, Received Pending 12/20/16 Urine Culture, Received Pending Assessment & Plan 12/20/16 6:50 PM re-examined pt. family at bedside. I suspect with ileus, emesis, loose bm's this am, and poor po intake that her main issue right now is dehydration giving bolus' now. also tpn started. will replace ngt output. closely monitor urine op. recheck labs discussed path report with family as well. replace lytes. 4 POD #7. bowels have opened up but still has ileus on KUB. will add ngt will start tpn. pod 7 with poor po intake leukocytosis but pt also somewhat dry. will rivas cx and add empiric antibiotics for now. will fluid bolus. repeat labs suspect ileus is main issue with some associated dehydration. will continue to monitor closely. 12/20/16 POD #7. bowels have opened up but still has ileus on KUB. will add ngt will start tpn. pod 7 with poor po intake leukocytosis but pt also somewhat dry. will rivas cx and add empiric antibiotics for now. will fluid bolus. repeat labs suspect ileus is main issue with some associated dehydration. will continue to monitor closely.
[2016-12-20 19:57] VITALS: BP 135/67; PULSE 114; TEMP 36.8; O2SAT 92
[2016-12-20 20:00] VITALS: O2SAT 92
--- NOTE | 2016-12-20 22:38 | DIAGNOSTIC IMAGING REPORT ---
CHEST ONE VIEW PORTABLE CLINICAL HISTORY: ileus, leukocytosis COMPARISON STUDY: 12/18/2016 FINDINGS: There is a nasogastric tube which passes in the stomach. There is decreasing free intraperitoneal air. There is a right-sided PICC catheter which terminates near the atriocaval junction. There is a left upper quadrant surgical drain. There is radiographic evidence of congestive failure/fluid overload. There are persistent left lower lobe airspace opacities. Associated pleural fluid cannot be excluded. IMPRESSION: 1. Mild pulmonary vascular congestion/fluid overload 2. Interval placement of a nasogastric tube and right-sided PICC catheter 3. Decreasing free intraperitoneal air 4. Left lower lobe airspace opacities, possibly representing a pneumonia Electronically signed by: Grabiel Del Toro M.D. 12/20/2016 10:36 PM Dictated Date/Time: 12/20/2016 10:34 PM
[2016-12-20] MEDS: PIPERACILL/TAZOBAC IV 3.375 GM in DEXTROSE 5% 100ML 100 ML IV SCH (23:18)
[2016-12-21 00:06] VITALS: BP 117/63; PULSE 95; TEMP 36.9; O2SAT 92
[2016-12-21] MEDS: ACETAMINOPHEN IV 650 MG in EMPTY BAG 0 ML IV PRN ×5 (01:11→21:27)
--- NOTE | 2016-12-21 07:26 | Surgery Progress Note ---
Surgery Progress Note Date of Service Dec 21, 2016. Subjective Post OP Day: 8 looks a little better than yesterday. c/o of ngt discomfort. + bm again. denies abdominal pain. Objective Vital Signs: Date Time Temp Pulse Resp B/P Pulse Ox O2 Delivery O2 Flow Rate FiO2 12/21/16 00:06 36.9 95 18 117/63 92 Nasal Cannula 0.5 12/20/16 20:00 92 Nasal Cannula 2.0 12/20/16 19:57 36.8 114 30 135/67 92 Nasal Cannula 2.0 12/20/16 19:32 28 12/20/16 15:34 36.8 98 33 133/47 93 Room Air 12/20/16 14:17 36.7 99 31 112/56 93 Room Air 12/20/16 08:30 36.6 90 105/53 96 Room Air 12/20/16 08:00 Room Air 12/20/16 07:50 Room Air General Appearance: no apparent distress Head: normocephalic, atraumatic Neck: supple Respiratory/Chest: no respiratory distress, no accessory muscle use Abdomen: + pertinent finding (soft. mild distension. nontender. incision looks good. josé scant/serous. ) Laboratory Results: Results Past 24 Hours Test 12/20/16 08:47 12/20/16 10:35 12/20/16 10:40 12/20/16 11:10 Range/Units Bedside Glucose 103 70-90 mg/dl Lactic Acid Level 2.6 0.4-2.0 mmol/L White Blood Count 11.28 4.8-10.8 K/uL Red Blood Count 3.54 4.2-5.4 M/uL Hemoglobin 10.3 12.0-16.0 g/dL Hematocrit 30.0 37-47 % Mean Corpuscular Volume 84.7 80-100 fL Mean Corpuscular Hemoglobin 29.1 25-34 pg Mean Corpuscular Hemoglobin Concent 34.3 32-36 g/dl Platelet Count 485 130-400 K/uL Mean Platelet Volume 9.3 7.4-10.4 fL Neutrophils (%) (Auto) 89.8 % Lymphocytes (%) (Auto) 5.9 % Monocytes (%) (Auto) 3.7 % Eosinophils (%) (Auto) 0.0 % Basophils (%) (Auto) 0.1 % Neutrophils # (Auto) 10.12 1.4-6.5 K/uL Lymphocytes # (Auto) 0.67 1.2-3.4 K/uL Monocytes # (Auto) 0.42 0.11-0.59 K/uL Eosinophils # (Auto) 0.00 0-0.5 K/uL Basophils # (Auto) 0.01 0-0.2 K/uL RDW Standard Deviation 46.7 36.4-46.3 fL RDW Coefficient of Variation 14.9 11.5-14.5 % Immature Granulocyte % (Auto) 0.5 % Immature Granulocyte # (Auto) 0.06 0.00-0.02 K/uL Echinocytes 1+ Sodium Level 132 136-145 mmol/L Potassium Level 4.6 3.5-5.1 mmol/L Chloride Level 101 98-107 mmol/L Carbon Dioxide Level 18 21-32 mmol/L Anion Gap 13.0 3-11 mmol/L Blood Urea Nitrogen 45 7-18 mg/dl Creatinine 2.70 0.60-1.20 mg/dl Est Creatinine Clear Calc Drug Dose 13.4 ml/min Estimated GFR () 18.0 Estimated GFR (Non- 15.6 BUN/Creatinine Ratio 16.6 10-20 Random Glucose 106 70-99 mg/dl Calcium Level 7.0 8.5-10.1 mg/dl Phosphorus Level 4.1 2.5-4.9 mg/dl Magnesium Level 1.6 1.8-2.4 mg/dl Troponin I 0.017 0-0.045 ng/ml Urine Color DK YELLOW Urine Appearance TURBID CLEAR Urine pH 5.0 4.5-7.5 Urine Specific [place] 1.025 1.000-1.030 Urine Protein 3+ NEG Urine Glucose (UA) NEG NEG Urine Ketones 1+ NEG Urine Occult Blood 3+ NEG Urine Nitrite NEG NEG Urine Bilirubin NEG NEG Urine Urobilinogen NEG NEG Urine Leukocyte Esterase SMALL NEG Urine WBC (Auto) 10-30 0-5 /hpf Urine RBC (Auto) 10-30 0-4 /hpf Urine Hyaline Casts (Auto) 1-5 0-5 /lpf Urine Epithelial Cells (Auto) 0-5 0-5 /lpf Urine Bacteria (Auto) 3+ NEG Urine Pathogenic Casts 0 /lpf Urine Yeast (Auto) BUDDING NONE PRSENT Urine Random Creatinine 100.0 mg/dl Urine Random Sodium 15 mEq/L Test 12/20/16 16:50 12/21/16 04:44 Range/Units Sodium Level 129 136-145 mmol/L Potassium Level 4.7 3.5-5.1 mmol/L Chloride Level 100 98-107 mmol/L Carbon Dioxide Level 19 21-32 mmol/L Anion Gap 10.0 3-11 mmol/L Blood Urea Nitrogen 50 7-18 mg/dl Creatinine 2.60 0.60-1.20 mg/dl Est Creatinine Clear Calc Drug Dose 13.9 ml/min Estimated GFR () 18.9 Estimated GFR (Non- 16.3 BUN/Creatinine Ratio 19.1 10-20 Random Glucose 118 70-99 mg/dl Lactic Acid Level 1.6 0.4-2.0 mmol/L Calcium Level 6.7 8.5-10.1 mg/dl Microbiology Results 12/20/16 Blood Culture, Received Pending 12/20/16 Blood Culture, Received Pending 12/20/16 Urine Culture, Received Pending Assessment & Plan 12/21/16 pt with improving urine op but still marginal. will give additional bolus keep ngt. will recheck KUB AM labs pending cont TPN bowels functioning but still has small bowel ileus 12/20/16 6:50 PM re-examined pt. family at bedside. I suspect with ileus, emesis, loose bm's this am, and poor po intake that her main issue right now is dehydration giving bolus' now. also tpn started. will replace ngt output. closely monitor urine op. recheck labs discussed path report with family as well. replace lytes. 12/20/16 POD #7. bowels have opened up but still has ileus on KUB. will add ngt will start tpn. pod 7 with poor po intake leukocytosis but pt also somewhat dry. will rivas cx and add empiric antibiotics for now. will fluid bolus. repeat labs suspect ileus is main issue with some associated dehydration. will continue to monitor closely. 12/20/16 6:50 PM re-examined pt. family at bedside. I suspect with ileus, emesis, loose bm's this am, and poor po intake that her main issue right now is dehydration giving bolus' now. also tpn started. will replace ngt output. closely monitor urine op. recheck labs discussed path report with family as well. replace lytes. 12/20/16 POD #7. bowels have opened up but still has ileus on KUB. will add ngt will start tpn. pod 7 with poor po intake leukocytosis but pt also somewhat dry. will rivas cx and add empiric antibiotics for now. will fluid bolus. repeat labs suspect ileus is main issue with some associated dehydration. will continue to monitor closely.
[2016-12-21 07:31] VITALS: BP 125/65; PULSE 87; TEMP 36.6; O2SAT 93
[2016-12-21] MEDS: CLOBETASOL PROPIONATE 0.05% EXT SCH ×2 (09:00→21:00)
[2016-12-21] MEDS: KETOTIFEN FUMARATE (ZADITOR) 0.025% 5 ML BTL OP SCH ×2 (09:00→21:33)
[2016-12-21] MEDS: FLUTICASONE FUROATE-VILANTEROL 200/25 MCG INH IN SCH (09:00)
[2016-12-21] MEDS: METRONIDAZOLE VAG 0.75% PV SCH (09:00)
[2016-12-21] MEDS: MENTHOL-ZINC OXIDE 360 APPLN/120 GM TUBE EXT SCH (09:00)
[2016-12-21] MEDS: PENTOSAN POLYSULFATE SODIUM 100 MG CAP PO SCH ×2 (09:00→21:00)
[2016-12-21 09:04] VITALS: BP 165/64; PULSE 104; O2SAT 93
[2016-12-21 09:23] LABS: CALCIUM 6.7 mg/dl (8.5-10.1); MAGNESIUM 2.1 mg/dl (1.8-2.4); MEAN CELL VOLUME 83.6 fL (80-100); MEAN CORPUSCULAR HEMOGLOBIN 29.4 pg (25-34); MEAN CORPUSCULAR HGB CONC 35.2 g/dl (32-36); MEAN PLATELET VOLUME 9.3 fL (7.4-10.4); PLATELET COUNT 329 K/uL (130-400); POTASSIUM 4.1 mmol/L (3.5-5.1); RED BLOOD COUNT 2.99 M/uL (4.2-5.4); WHITE BLOOD COUNT 13.53 K/uL (4.8-10.8)
[2016-12-21 09:26] LABS: BASO % 0.1 %; BASO ABS # 0.01 K/uL (0-0.2); COMPLETE YES; ECHINOCYTES 1+; EOS % 0.1 %; IG% 0.7 %; LYMPH % 3.3 %; LYMPH ABS # 0.45 K/uL (1.2-3.4); MONO % 2.2 %; NEUT % 93.6 %; TOXIC GRANULATION 2+
[2016-12-21 09:30] LABS: ALB/GLOB RATIO 0.3 (0.9-2); C-REACTIVE PROTEIN 30.9 mg/dl (0-0.29)
--- NOTE | 2016-12-21 09:54 | Progress Note ---
Subjective Date of Service: Dec 21, 2016. Subjective Pt evaluation today including: conversation w/ patient, conversation w/ family , physical exam, lab review, review of studies, conversation w/ mainframe consultant, review of inpatient medication list Pain: abdominal pain PO Intake: NPO, NGT Voiding: hilario catheter in place patient feels slightly better, small BM, still with NGT output abdomen hurts with deep breath no cough, no dyspnea just feels really tired Problem List Medical Problems: (1) Urinary tract infection Status: Acute (2) Vaginal burning Status: Acute Review of Systems Constitutional: + fatigue, + weakness Abdomen: + nausea, + pain Neurologic: + weakness All Other Systems: Reviewed and Negative Medications Current Inpatient Medications Medications (Trade) Dose Ordered Sig/Aleksander Route Start Time Stop Time Status Last Admin Dose Admin Ondansetron HCl (Zofran Inj) 4 mg Q6H PRN IV 12/13/16 15:00 01/12/17 14:59 12/20/16 07:28 4 MG Albuterol (Ventolin Hfa Inhaler) 2 puffs Q4 PRN INH 12/13/16 15:00 01/12/17 14:59 Amlodipine Besylate (Norvasc Tab) 10 mg QAM PO 12/14/16 09:00 01/13/17 08:59 12/20/16 09:10 10 MG Fluticasone Propionate (Flonase Nasal [place]) 2 sprays DAILY PRN LARRY 12/13/16 15:00 01/12/17 14:59 Loratadine (Claritin Tab) 10 mg DAILY PRN PO 12/13/16 15:00 01/12/17 14:59 Pentosan Polysulfate Sodium (Elmiron) 100 mg BID PO 12/13/16 21:00 01/12/17 20:59 12/20/16 09:10 100 MG Metoclopramide HCl (Reglan Inj) 10 mg Q6H PRN IV. 12/13/16 19:15 01/12/17 19:14 12/20/16 05:36 10 MG Fluticasone/ Vilanterol (Breo Ellipta 200-25 Mcg/Inh) 1 inha DAILY IN 12/14/16 09:00 01/13/17 08:59 12/20/16 09:03 1 INHA Ketotifen Fumarate (Zaditor 0.025% Op Soln) 1 drops Q12 OP 12/14/16 09:00 01/13/17 08:59 12/20/16 09:04 1 DROPS Hydrocortisone 1 appln 1 appln [id number] PRN EXT 12/14/16 07:15 01/13/17 07:14 Future Hold 12/18/16 18:21 1 APPLN Pantoprazole Sodium/Syringe (Protonix Inj/ Syringe) 10 ml @ 5 mls/min DAILY@11 IV 12/15/16 11:00 01/14/17 10:59 12/20/16 10:58 5 MLS/MIN Tramadol HCl 50 mg 50 mg Q4H PRN PO 12/16/16 08:15 01/15/17 08:14 12/17/16 00:52 50 MG Acetaminophen/ Empty Bag (Ofirmev IV/ Empty Iv Bag 100ml) 65 ml @ 260 mls/hr Q6H PRN IV 12/18/16 13:15 01/17/17 13:14 12/21/16 07:58 260 MLS/HR Hard Fat/ Phenylephrine (Anusol Supp) 1 ea BID PRN AR 12/19/16 09:00 01/18/17 08:59 12/19/16 21:04 1 EA Metronidazole HCl (Metrogel Vag Gel) 2 appln DAILY PV 12/20/16 09:00 12/30/16 08:59 12/20/16 09:11 2 APPLN Menthol/Zinc Oxide (Calmoseptine Oint) 1 appln DAILY EXT 12/20/16 09:00 01/19/17 08:59 12/20/16 09:03 1 APPLN Clobetasol Propionate (Clobetasol Propionate Oint) 1 appln BID EXT 12/19/16 21:00 01/18/17 20:59 12/20/16 09:00 1 APPLN Miscellaneous Information 1 ea 1 ea UD PRN N/A 12/20/16 09:58 01/19/17 09:57 Nutrition (Parenteral) 0 ml @ 0 mls/hr TODAY@1600 IV 12/20/16 16:00 12/21/16 15:59 12/20/16 15:43 0 MLS/HR Dextrose (D10w) 1,000 ml @ 0 mls/hr Q0M PRN IV 12/20/16 13:10 01/19/17 13:09 Heparin Sodium (Porcine) 1 ml 1 ml PRN PRN FLUSH 12/20/16 13:15 01/19/17 13:14 Piperacillin Sod/ Tazobactam Sod/ Dextrose (Zosyn Iv/D5 100ml) 115 ml @ 28.75 mls/ hr Q12H IV 12/21/16 00:00 12/22/16 00:00 12/20/16 23:18 28.75 MLS/HR Piperacillin Sod/ Tazobactam Sod (Consult) 1 ea UD PRN N/A 12/20/16 15:45 01/19/17 15:44 Miscellaneous Information 1 ea 1 ea Q6H N/A 12/20/16 21:00 01/19/17 20:59 Sodium Chloride (Nss 1000ml) 1,000 ml @ 0 mls/hr Q0M PRN IV 12/20/16 17:15 01/19/17 17:14 Objective Vital Signs Date Time Temp Pulse Resp B/P Pulse Ox O2 Delivery O2 Flow Rate FiO2 12/21/16 09:04 104 22 165/64 93 Nasal Cannula 2.0 12/21/16 07:31 36.6 87 30 125/65 93 Nasal Cannula 1.0 Humidified Oxygen 12/21/16 07:25 Room Air 12/21/16 00:06 36.9 95 18 117/63 92 Nasal Cannula 0.5 12/20/16 20:00 92 Nasal Cannula 2.0 12/20/16 19:57 36.8 114 30 135/67 92 Nasal Cannula 2.0 12/20/16 19:32 28 12/20/16 15:34 36.8 98 33 133/47 93 Room Air 12/20/16 14:17 36.7 99 31 112/56 93 Room Air Physical Exam General Appearance: no apparent distress, + thin Neck: supple, no adenopathy, no JVD, trachea midline Respiratory/Chest: chest non-tender, no respiratory distress, no accessory muscle use, + decreased breath sounds (bases) Cardiovascular: regular rate, rhythm, no edema, no gallop, no JVD, no murmur Abdomen: soft, no organomegaly, + abnormal bowel sounds (hypoactive), + tenderness (diffuse, no rigidity, no rebound) Extremities: normal range of motion, non-tender, normal inspection, no pedal edema, no calf tenderness, pelvis stable 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, alert, oriented x 3, + motor weakness (generalized), + depressed affect Skin: normal color, warm/dry, no rash Lymphatic: no adenopathy Laboratory Results Last 24 Hours Test 12/20/16 10:35 12/20/16 10:40 12/20/16 11:10 12/20/16 16:50 Lactic Acid Level 2.6 mmol/L 1.6 mmol/L White Blood Count 11.28 K/uL Red Blood Count 3.54 M/uL Hemoglobin 10.3 g/dL Hematocrit 30.0 % Mean Corpuscular Volume 84.7 fL Mean Corpuscular Hemoglobin 29.1 pg Mean Corpuscular Hemoglobin Concent 34.3 g/dl Platelet Count 485 K/uL Mean Platelet Volume 9.3 fL Neutrophils (%) (Auto) 89.8 % Lymphocytes (%) (Auto) 5.9 % Monocytes (%) (Auto) 3.7 % Eosinophils (%) (Auto) 0.0 % Basophils (%) (Auto) 0.1 % Neutrophils # (Auto) 10.12 K/uL Lymphocytes # (Auto) 0.67 K/uL Monocytes # (Auto) 0.42 K/uL Eosinophils # (Auto) 0.00 K/uL Basophils # (Auto) 0.01 K/uL RDW Standard Deviation 46.7 fL RDW Coefficient of Variation 14.9 % Immature Granulocyte % (Auto) 0.5 % Immature Granulocyte # (Auto) 0.06 K/uL Echinocytes 1+ Sodium Level 132 mmol/L 129 mmol/L Potassium Level 4.6 mmol/L 4.7 mmol/L Chloride Level 101 mmol/L 100 mmol/L Carbon Dioxide Level 18 mmol/L 19 mmol/L Anion Gap 13.0 mmol/L 10.0 mmol/L Blood Urea Nitrogen 45 mg/dl 50 mg/dl Creatinine 2.70 mg/dl 2.60 mg/dl Est Creatinine Clear Calc Drug Dose 13.4 ml/min 13.9 ml/min Estimated GFR () 18.0 18.9 Estimated GFR (Non- 15.6 16.3 BUN/Creatinine Ratio 16.6 19.1 Random Glucose 106 mg/dl 118 mg/dl Calcium Level 7.0 mg/dl 6.7 mg/dl Phosphorus Level 4.1 mg/dl Magnesium Level 1.6 mg/dl Troponin I 0.017 ng/ml Urine Color DK YELLOW Urine Appearance TURBID Urine pH 5.0 Urine Specific [place] 1.025 Urine Protein 3+ Urine Glucose (UA) NEG Urine Ketones 1+ Urine Occult Blood 3+ Urine Nitrite NEG Urine Bilirubin NEG Urine Urobilinogen NEG Urine Leukocyte Esterase SMALL Urine WBC (Auto) 10-30 /hpf Urine RBC (Auto) 10-30 /hpf Urine Hyaline Casts (Auto) 1-5 /lpf Urine Epithelial Cells (Auto) 0-5 /lpf Urine Bacteria (Auto) 3+ Urine Pathogenic Casts /lpf Urine Yeast (Auto) BUDDING Urine Random Creatinine 100.0 mg/dl Urine Random Sodium 15 mEq/L Test 12/21/16 08:39 White Blood Count 13.53 K/uL Red Blood Count 2.99 M/uL Hemoglobin 8.8 g/dL Hematocrit 25.0 % Mean Corpuscular Volume 83.6 fL Mean Corpuscular Hemoglobin 29.4 pg Mean Corpuscular Hemoglobin Concent 35.2 g/dl Platelet Count 329 K/uL Mean Platelet Volume 9.3 fL Neutrophils (%) (Auto) 93.6 % Lymphocytes (%) (Auto) 3.3 % Monocytes (%) (Auto) 2.2 % Eosinophils (%) (Auto) 0.1 % Basophils (%) (Auto) 0.1 % Neutrophils # (Auto) 12.66 K/uL Lymphocytes # (Auto) 0.45 K/uL Monocytes # (Auto) 0.30 K/uL Eosinophils # (Auto) 0.01 K/uL Basophils # (Auto) 0.01 K/uL RDW Standard Deviation 46.1 fL RDW Coefficient of Variation 14.9 % Immature Granulocyte % (Auto) 0.7 % Immature Granulocyte # (Auto) 0.10 K/uL Nucleated RBC Absolute Count (auto) 0.05 K/uL Nucleated Red Blood Cells % 0.4 % Toxic Granulation 2+ Echinocytes 1+ Sodium Level 129 mmol/L Potassium Level 4.1 mmol/L Chloride Level 98 mmol/L Carbon Dioxide Level 19 mmol/L Anion Gap 12.0 mmol/L Blood Urea Nitrogen 50 mg/dl Creatinine 2.00 mg/dl Est Creatinine Clear Calc Drug Dose 18.1 ml/min Estimated GFR () 25.9 Estimated GFR (Non- 22.4 BUN/Creatinine Ratio 25.0 Random Glucose 109 mg/dl Calcium Level 6.7 mg/dl Phosphorus Level 4.0 mg/dl Magnesium Level 2.1 mg/dl Total Bilirubin 0.2 mg/dl Aspartate Amino Transf (AST/SGOT) 36 U/L Alanine Aminotransferase (ALT/SGPT) 22 U/L Alkaline Phosphatase 71 U/L C-Reactive Protein 30.90 mg/dl Total Protein 4.3 gm/dl Albumin 1.0 gm/dl Globulin 3.3 gm/dl Albumin/Globulin Ratio 0.3 Triglycerides Level 201 mg/dl Assessment and Plan 86 yo female with history of HTN, GERD, hyperlipidemia and allergies, s/p transverse colectomy POD #5 with syncope while in bed associated with abdominal pain - s/p transverse colectomy, liver biopsy, POD #8 slightly better this AM with NGT placed yesterday, still no bowel sounds, did have small BM LA was above 2 in the AM yesterday, repeat was normal KUB showed dilated small bowel loops no signs of acute abdomen at this time surgery managing - GABRIEL: likely prerenal, low UO, low sodium which suggests kidneys responding appropriately by holding onto sodium continue fluids, Cr plateaued yesterday at 2.7, today is 2.0 so improving monitor daily, sodium low at 129 on TPN per surgery - Leukocytosis, diaphoresis: possible UTI, no evidence of pneumonia on CXR started on Zosyn, blood cultures drawn 12/20, no growth three organisms on urine culture done from catheter - Syncope: reason for initial consult, occurred on 12/18 most likely vasovagal with pain and nausea and passing gas prior to the event EKG shows some TW inversions in lateral leads, no chest pain reported then or now, troponin 0.026 will order echo, repeat EKG and troponin in the morning or if she has any chest pain or further syncope no focal neurologic deficits on exam, will not perform CT head slight improvement today with renal function, awaiting bowel function to improve will continue to follow
[2016-12-21] MEDS: AMLODIPINE BESYLATE 5 MG TAB PO SCH (10:06)
[2016-12-21] MEDS: PANTOprazole INJ 40 MG in SYRINGE 0 ML IV SCH (11:10)
[2016-12-21 11:56] LABS: URINE APPEARANCE TURBID (CLEAR); URINE BILIRUBIN NEG (NEG); URINE COLOR YELLOW; URINE NITRITE NEG (NEG); URINE SPECIFIC GRAVITY 1.022 (1.000-1.030); UROBILINOGEN NEG (NEG)
[2016-12-21 12:05] LABS: MANUAL MICROSCOPIC REQUIRED? NO; REVIEW REQ? YES
[2016-12-21] MEDS: PIPERACILL/TAZOBAC IV 3.375 GM in DEXTROSE 5% 100ML 100 ML IV SCH (12:08)
[2016-12-21 12:14] LABS: URINE EPITHELIAL CELL AUTO 0-5 /lpf (0-5)
[2016-12-21 12:15] LABS: URINE PATH CASTS 5-10 GRANULAR CASTS /lpf (0)
--- NOTE | 2016-12-21 12:16 | Pharmacy Progress Note ---
Pharmacy Progress Note Date of Service Dec 21, 2016. Progress Note REGARDING TPN: Assessment * 86 y/o with decreased to negligible PO intake over the past few days. * Nauseated and vomiting. * at risk for refeeding. * NG with output * s/p transverse colectomy, postop day #8 * questionable post op ileus * Currently, acute kidney injury * decreased urine output, NSS boluses per providers * Will need to closely monitor phosphorus (refeeding/GABRIEL) Plan For day 2 of PN administration, the following will be ordered: Macronutrients Amino acids 60 grams/day Dextrose 150 grams/day Lipids 25 grams/day Micronutrients Sodium phosphate 21 mMol Sodium acetate 60 mEq Potassium acetate 40 mEq Multivitamins 10 mL Trace Elements 10 mL Thiamine 100 mg Calcium 9.2 mEq Magnesium 16.24 mEq Notes: * Total volume changed to MINIMUM volume of 1030mL per day to provide 1000kcals/ day * further fluid boluses per providers * Lipids will be transitioned to twice weekly (50grams /) starting on Saturday if the patient is still here * Labs to be ordered per PN order protocol Pharmacy will follow and adjust parenteral nutrition orders on a daily basis. Thank you.
--- NOTE | 2016-12-21 12:50 | DIAGNOSTIC IMAGING REPORT ---
CT OF THE ABDOMEN AND PELVIS WITH ORAL CONTRAST CT DOSE: 723.90 mGy.cm CLINICAL HISTORY: Postoperative leukocytosis. Villous adenoma. Probable malignant liver lesion. TECHNIQUE: Axial images of the abdomen and pelvis were obtained without IV contrast. Oral contrast was administered. COMPARISON STUDY: Right upper quadrant ultrasound September 27, [address] of the abdomen and pelvis October 15, 2016. FINDINGS: Visualized portions of the lower chest demonstrate small bilateral pleural effusions with bilateral lower lobe opacities. There is moderate pneumoperitoneum. The tip of the nasogastric tube is within the proximal body of the stomach. There are findings consistent with a transverse colectomy. There are fluid and gas containing collections within the abdomen and pelvis. There may be peritoneal thickening. A 9.4 x 8.8 cm partially loculated collection within the pelvis, anterior to the rectum and posterior to the uterus is noted. There is also a left anterior abdominal collection that measures 9.6 x 2.9 cm. There are multiple mesenteric fluid collections. Diffuse infiltration is noted within the mesentery. There are several locules of gas adjacent to the spleen. Unenhanced images of liver, adrenal glands, kidneys and pancreas are normal. There is no hydronephrosis. There is no pancreatic ductal dilatation. There is sigmoid diverticulosis without evidence for acute diverticulitis. Mild small bowel dilatation is noted. IMPRESSION: 1. Postoperative findings consistent with a transverse colectomy. Moderate pneumoperitoneum. While this may postsurgical, this is greater than expected and raises the possibility of an anastomotic leak. 2. Multiple fluid and gas containing abdominal and pelvic fluid collections. These are nonspecific in the postoperative period but could reflect developing abscesses. Possible peritoneal thickening. 3. Mild small bowel dilatation without definite transition point. The findings could reflect an ileus or less likely a partial small bowel obstruction. 4. Small bilateral pleural effusions with associated bibasilar opacities which could reflect atelectasis or consolidation. Electronically signed by: Farshad Hopson M.D. 12/21/2016 12:48 PM Dictated Date/Time: 12/21/2016 12:32 PM
--- NOTE | 2016-12-21 15:09 | History & Physical Bridge Note ---
H&P Re-Evaluation Bridge Note: I have examined the patient, reviewed the History & Physical and in the interval since the performance of the History & Physical I have noted the following changes of clinical significance: pt seen...discussed ct with Dr. Hopson and family. pt denies abdominal pain but is tachypneic and has slowly rising WBC. afebrile. drain scant. I suspect infected intra-abdominal fluid collections. maybe infected hematomas. I doubt anastomotic leak. discussed options with family. Rec OR today for exploration, washout, placement of new drains etc... I do think this may be part of her ileus issue as well. pt/ agreeable. will proceed to OR tonight.
[2016-12-21] MEDS ORDERED: FENTANYL CITRATE INJ 50 MCG/1 ML 2 ML VIAL ONE ×2 (15:32→18:43)
[2016-12-21] MEDS ORDERED: KETAMINE HCL INJ 50 MG/ML 10 ML VIAL ONE (15:48)
[2016-12-21] MEDS ORDERED: CUSTOM CENTRAL PN 1 BAG IV SCH (16:00)
[2016-12-21] MEDS ORDERED: ALBUMIN HUMAN 5% 12.5 GM/250 ML VIAL IV ONE (16:03)
[2016-12-21 17:44] LABS: HEMATOCRIT 26.3 % (37-47)
[2016-12-21] MEDS ORDERED: LACTATED RINGER'S 1000ML 1,000 ML IV PRN (18:32)
--- NOTE | 2016-12-21 18:35 | [facility] Operative Report ---
Operative Report Operative Date Dec 21, 2016. Pre-Operative Diagnosis Abdominal abscesses Post-Operative Diagnosis anastomotic leak Procedure(s) Performed ex-lap takedown of anastomosis with partial colon resection end colostomy with mucous fistula formation abdominal washout Surgeon Dr Lomax Cashier Host/Hostess Surgeon(s) NONE Estimated Blood Loss 50ml Findings multiple fluid collections with breakdown of anastomosis Specimens Culture # abdominal wound for gram stain, aerobic and anaerobic A. Portion of colon Drains josé into LUQ Anesthesia get Disposition Surgical ICU I attest to the content of the Intraoperative Record and any orders documented therein. Any exceptions are noted below.
[2016-12-21] MEDS: FENTANYL CITRATE INJ 50 MCG/1 ML 2 ML VIAL IV PRN ×4 (18:37→18:52)
[2016-12-21] MEDS ORDERED: ONDANSETRON INJ 2 MG/ML 2 ML VIAL IV PRN (18:45)
[2016-12-21] MEDS ORDERED: SUCCINYLCHOLINE CHLORIDE 20 MG/ML 10 ML VIAL IV ONE (18:50)
[2016-12-21] MEDS ORDERED: NEOSTIGMINE METHYLSULFATE 5 MG/5 ML SYR ONE (18:50)
[2016-12-21] MEDS ORDERED: PROPOFOL IV EMULSION 10 MG/ML 20 ML VIAL IV ONE (18:50)
[2016-12-21] MEDS ORDERED: GLYCOPYRROLATE INJ 0.2 MG/ML VIAL ONE (18:50)
[2016-12-21] MEDS ORDERED: ROCURONIUM BROMIDE 10 MG/ML 5 ML VIAL ONE (18:50)
[2016-12-21] MEDS ORDERED: PHENYLEPHRINE HCL INJ 10 MG/ML VIAL ONE (18:50)
[2016-12-21] MEDS: HYDROmorphone INJ 1 MG/ML SYR IV PRN ×3 (18:57→19:07)
[2016-12-21] MEDS ORDERED: HYDROmorphone INJ 1 MG/ML SYR ONE (19:03)
--- NOTE | 2016-12-21 19:31 | Anesthesiology Progress Note ---
Anesthesia Post Op Note Date & Time Dec 21, 2016 at 19:11 Vital Signs Pain Intensity: 4.0 Vital Signs Past 12 Hours Date Time Temp Pulse Resp B/P Pulse Ox O2 Delivery O2 Flow Rate FiO2 12/21/16 19:07 36.5 126/41 12/21/16 19:05 81 29 93/53 98 12/21/16 19:05 81 29 12/21/16 19:00 83 28 12/21/16 19:00 83 28 134/48 100 12/21/16 18:55 90 34 12/21/16 18:55 90 34 141/41 100 12/21/16 18:50 83 32 145/45 100 12/21/16 18:50 84 32 12/21/16 18:45 87 39 12/21/16 18:45 87 39 100 12/21/16 18:44 156/68 12/21/16 18:40 82 35 12/21/16 18:40 98 35 100 12/21/16 18:35 92 42 194/59 99 12/21/16 18:35 93 42 12/21/16 18:31 181/55 12/21/16 18:31 182/49 12/21/16 18:30 36.6 93 38 182/49 99 Mask 10 12/21/16 18:30 92 12 96 12/21/16 18:30 92 12 12/21/16 09:04 104 22 165/64 93 Nasal Cannula 2.0 12/21/16 07:31 36.6 87 30 125/65 93 Nasal Cannula 1.0 Humidified Oxygen 12/21/16 07:25 Room Air Notes Mental Status: alert / awake / arousable, participated in evaluation Pt Amnestic to Procedure: Yes Nausea / Vomiting: adequately controlled Pain: adequately controlled Airway Patency, RR, SpO2: stable & adequate BP & HR: stable & adequate Hydration State: stable & adequate Anesthetic Complications: no major complications apparent Pt doing quite well. Dr Lomax brought her to the OR for ex lap, wash out. She 's had a persistent ileus s/p R hemicolectomy for colon adenoCA on 12/13 and developed leukocytosis today. CT showed free air concerning for anastomotic leak and fluid concerning for abscesses. She also had a prerenal GABRIEL (Cr 2.4 yesterday from baseline 0.6-0.7, 2.0 today) and was tachypneic w/ RR around 32 pre-op, satting in the mid 90s on 2L NC. We were told that her NG output had stopped upstairs, but before we went to the OR, we hooked it up to suction and got out about 800 mL, plus another 300 mL in the OR before induction. Intra-op, she was found to have an anastomotic leak. Dr Lomax created a colostomy and mucous fistula. Anesthetic course unremarkable. Pre-op Hgb 8.8, post-op 9.0, EBL 50 mL. She made about 100 mL urine during the case and another 100 mL in PACU. I certainly think that she remains dry but I didn't want to be too aggressive w/ fluid resuscitation given her mod LVH w/ grade II diastolic dysfunction and pulmonary vascular congestion on pre-op CXR. We've given about a liter of crystalloid and 250 mL albumin intra- and post-op as well as maintaining her TPN at 43 mL/hr. Her pain is controlled. Her RR is at her pre- op baseline of about 30. SpO2 98-99% on 4L NC. BP and HR normal and stable. I gave report to the accepting ICU physician. She'll certainly need ongoing volume resuscitation for her abdominal sepsis and GABRIEL. She's been receiving Zosyn.
[2016-12-21 20:00] VITALS: O2SAT 98
[2016-12-21 20:14] LABS: PARTIAL THROMBOPLASTIN RATIO 1.7; PROTHROMBIN TIME (PATIENT) 10.2 SECONDS (9.0-12.0)
[2016-12-21] MEDS: HYDROmorphone INJ 0.5 MG/0.5 ML SYR IV PRN (21:38)
[2016-12-21] MEDS: SODIUM CHLORIDE 0.9% 1000ML 1,000 ML IV SCH (21:57)
[2016-12-21 22:00] VITALS: PULSE 79; O2SAT 92
[2016-12-21] MEDS ORDERED: NURSING VERBAL MED ORDER ONE (22:00)
[2016-12-21 23:00] VITALS: BP 123/50; PULSE 102; O2SAT 94
[2016-12-22] VITALS (33 sets, daily range): BP systolic 99–141; BP diastolic 34–66; PULSE 64–109; TEMP 36.6–37.2; O2SAT 89–98
[2016-12-22] MEDS: PIPERACILL/TAZOBAC IV 3.375 GM in DEXTROSE 5% 100ML 100 ML IV SCH ×3 (00:37→23:37)
[2016-12-22] MEDS: HYDROmorphone INJ 0.5 MG/0.5 ML SYR IV PRN ×3 (03:52→18:46)
[2016-12-22 05:55] LABS: HEMATOCRIT 23.2 % (37-47); MEAN CELL VOLUME 81.7 fL (80-100); MEAN CORPUSCULAR HEMOGLOBIN 28.2 pg (25-34); MEAN CORPUSCULAR HGB CONC 34.5 g/dl (32-36); MEAN PLATELET VOLUME 9.7 fL (7.4-10.4); PLATELET COUNT 234 K/uL (130-400); RED BLOOD COUNT 2.84 M/uL (4.2-5.4); WHITE BLOOD COUNT 7.63 K/uL (4.8-10.8)
[2016-12-22 06:25] LABS: CALCIUM 6.3 mg/dl (8.5-10.1); CREATININE 1.8 mg/dl (0.60-1.20); MAGNESIUM 2.4 mg/dl (1.8-2.4); POTASSIUM 4.3 mmol/L (3.5-5.1)
[2016-12-22 06:26] LABS: BASO % 0.1 %; BASO ABS # 0.01 K/uL (0-0.2); COMPLETE YES; DOHLE BODIES 1+; ECHINOCYTES 2+; IG% 0.7 %; LARGE PLATELETS 1+; LYMPH % 6.8 %; LYMPH ABS # 0.52 K/uL (1.2-3.4); MONO % 6.2 %; NEUT % 86.2 %; TOXIC GRANULATION 2+
[2016-12-22 06:28] LABS: ALB/GLOB RATIO 0.3 (0.9-2); PHOSPHORUS 4.3 mg/dl (2.5-4.9)
--- NOTE | 2016-12-22 07:16 | Surgery Progress Note ---
Surgery Progress Note Date of Service Dec 22, 2016. Subjective Post OP Day: 1 pt looks/feels much better. surgical pain controlled. no nausea. Objective Vital Signs: Date Time Temp Pulse Resp B/P Pulse Ox O2 Delivery O2 Flow Rate FiO2 12/22/16 06:00 64 19 113/48 92 12/22/16 05:00 90 21 131/38 96 12/22/16 04:18 98 Room Air Mask 12/22/16 04:00 37.2 95 24 136/53 91 12/22/16 03:00 97 26 134/35 97 12/22/16 02:06 92 31 115/45 96 Room Air 12/22/16 02:00 100 25 95 Room Air 12/22/16 01:00 89 25 94 Room Air 12/22/16 00:00 98 Room Air Mask 12/22/16 00:00 36.7 81 31 94 Room Air 12/21/16 23:00 102 16 123/50 94 Room Air 12/21/16 22:00 79 18 92 Room Air 12/21/16 20:00 98 Room Air Mask 12/21/16 19:07 36.5 126/41 12/21/16 19:05 81 29 93/53 98 12/21/16 19:05 81 29 12/21/16 19:00 83 28 12/21/16 19:00 83 28 134/48 100 12/21/16 18:55 90 34 12/21/16 18:55 90 34 141/41 100 12/21/16 18:50 83 32 145/45 100 12/21/16 18:50 84 32 12/21/16 18:45 87 39 12/21/16 18:45 87 39 100 12/21/16 18:44 156/68 12/21/16 18:40 82 35 12/21/16 18:40 98 35 100 12/21/16 18:35 92 42 194/59 99 12/21/16 18:35 93 42 12/21/16 18:31 181/55 12/21/16 18:31 182/49 12/21/16 18:30 36.6 93 38 182/49 99 Mask 10 12/21/16 18:30 92 12 96 12/21/16 18:30 92 12 12/21/16 09:04 104 22 165/64 93 Nasal Cannula 2.0 12/21/16 07:31 36.6 87 30 125/65 93 Nasal Cannula 1.0 Humidified Oxygen 12/21/16 07:25 Room Air Physical Exam: JOSÉ drainage (serous), nasogastric drainage (thin/bilious) General Appearance: no apparent distress Abdomen: + pertinent finding (soft. stoma functioning already. some fat necrosis at stoma but mucosa looks good. brown stool. ) Incision(s): dry, intact Laboratory Results: Results Past 24 Hours Test 12/21/16 08:39 12/21/16 11:45 12/21/16 17:26 12/21/16 19:47 Range/Units White Blood Count 13.53 4.8-10.8 K/uL Red Blood Count 2.99 4.2-5.4 M/uL Hemoglobin 8.8 9.0 12.0-16.0 g/dL Hematocrit 25.0 26.3 37-47 % Mean Corpuscular Volume 83.6 80-100 fL Mean Corpuscular Hemoglobin 29.4 25-34 pg Mean Corpuscular Hemoglobin Concent 35.2 32-36 g/dl Platelet Count 329 130-400 K/uL Mean Platelet Volume 9.3 7.4-10.4 fL Neutrophils (%) (Auto) 93.6 % Lymphocytes (%) (Auto) 3.3 % Monocytes (%) (Auto) 2.2 % Eosinophils (%) (Auto) 0.1 % Basophils (%) (Auto) 0.1 % Neutrophils # (Auto) 12.66 1.4-6.5 K/uL Lymphocytes # (Auto) 0.45 1.2-3.4 K/uL Monocytes # (Auto) 0.30 0.11-0.59 K/uL Eosinophils # (Auto) 0.01 0-0.5 K/uL Basophils # (Auto) 0.01 0-0.2 K/uL RDW Standard Deviation 46.1 36.4-46.3 fL RDW Coefficient of Variation 14.9 11.5-14.5 % Immature Granulocyte % (Auto) 0.7 % Immature Granulocyte # (Auto) 0.10 0.00-0.02 K/uL Nucleated RBC Absolute Count (auto) 0.05 0-0 K/uL Nucleated Red Blood Cells % 0.4 % Toxic Granulation 2+ Echinocytes 1+ Sodium Level 129 136-145 mmol/L Potassium Level 4.1 3.5-5.1 mmol/L Chloride Level 98 98-107 mmol/L Carbon Dioxide Level 19 21-32 mmol/L Anion Gap 12.0 3-11 mmol/L Blood Urea Nitrogen 50 7-18 mg/dl Creatinine 2.00 0.60-1.20 mg/dl Est Creatinine Clear Calc Drug Dose 18.1 ml/min Estimated GFR () 25.9 Estimated GFR (Non- 22.4 BUN/Creatinine Ratio 25.0 10-20 Random Glucose 109 70-99 mg/dl Calcium Level 6.7 8.5-10.1 mg/dl Phosphorus Level 4.0 2.5-4.9 mg/dl Magnesium Level 2.1 1.8-2.4 mg/dl Total Bilirubin 0.2 0.2-1 mg/dl Aspartate Amino Transf (AST/SGOT) 36 15-37 U/L Alanine Aminotransferase (ALT/SGPT) 22 12-78 U/L Alkaline Phosphatase 71 45-117 U/L C-Reactive Protein 30.90 0-0.29 mg/dl Total Protein 4.3 6.4-8.2 gm/dl Albumin 1.0 3.4-5.0 gm/dl Globulin 3.3 2.5-4.0 gm/dl Albumin/Globulin Ratio 0.3 0.9-2 Triglycerides Level 201 0-150 mg/dl Urine Color YELLOW Urine Appearance TURBID CLEAR Urine pH 5.0 4.5-7.5 Urine Specific [place] 1.022 1.000-1.030 Urine Protein 1+ NEG Urine Glucose (UA) NEG NEG Urine Ketones NEG NEG Urine Occult Blood 3+ NEG Urine Nitrite NEG NEG Urine Bilirubin NEG NEG Urine Urobilinogen NEG NEG Urine Leukocyte Esterase MODERATE NEG Urine WBC (Auto) >30 0-5 /hpf Urine RBC (Auto) >30 0-4 /hpf Urine Hyaline Casts (Auto) 1-5 0-5 /lpf Urine Epithelial Cells (Auto) 0-5 0-5 /lpf Urine Bacteria (Auto) 2+ NEG Urine Renal Epithelial Cells 0-5 /lpf Urine Pathogenic Casts 5-10 GRANULAR CASTS 0 /lpf Urine Yeast (Auto) BUDDING NONE PRSENT Prothrombin Time 10.2 9.0-12.0 SECONDS Prothromb Time International Ratio 1.0 0.9-1.1 Activated Partial Thromboplast Time 43.6 21.0-31.0 SECONDS Partial Thromboplastin Ratio 1.7 Test 12/22/16 05:19 Range/Units White Blood Count 7.63 4.8-10.8 K/uL Red Blood Count 2.84 4.2-5.4 M/uL Hemoglobin 8.0 12.0-16.0 g/dL Hematocrit 23.2 37-47 % Mean Corpuscular Volume 81.7 80-100 fL Mean Corpuscular Hemoglobin 28.2 25-34 pg Mean Corpuscular Hemoglobin Concent 34.5 32-36 g/dl Platelet Count 234 130-400 K/uL Mean Platelet Volume 9.7 7.4-10.4 fL Neutrophils (%) (Auto) 86.2 % Lymphocytes (%) (Auto) 6.8 % Monocytes (%) (Auto) 6.2 % Eosinophils (%) (Auto) 0.0 % Basophils (%) (Auto) 0.1 % Neutrophils # (Auto) 6.58 1.4-6.5 K/uL Lymphocytes # (Auto) 0.52 1.2-3.4 K/uL Monocytes # (Auto) 0.47 0.11-0.59 K/uL Eosinophils # (Auto) 0.00 0-0.5 K/uL Basophils # (Auto) 0.01 0-0.2 K/uL RDW Standard Deviation 45.0 36.4-46.3 fL RDW Coefficient of Variation 15.0 11.5-14.5 % Immature Granulocyte % (Auto) 0.7 % Immature Granulocyte # (Auto) 0.05 0.00-0.02 K/uL Nucleated RBC Absolute Count (auto) 0.05 0-0 K/uL Nucleated Red Blood Cells % 0.7 % Toxic Granulation 2+ Dohle Bodies 1+ Large Platelets 1+ Echinocytes 2+ Sodium Level 133 136-145 mmol/L Potassium Level 4.3 3.5-5.1 mmol/L Chloride Level 101 98-107 mmol/L Carbon Dioxide Level 22 21-32 mmol/L Anion Gap 10.0 3-11 mmol/L Blood Urea Nitrogen 58 7-18 mg/dl Creatinine 1.80 0.60-1.20 mg/dl Est Creatinine Clear Calc Drug Dose 22.0 ml/min Estimated GFR () 29.4 Estimated GFR (Non- 25.4 BUN/Creatinine Ratio 32.0 10-20 Random Glucose 112 70-99 mg/dl Calcium Level 6.3 8.5-10.1 mg/dl Phosphorus Level 4.3 2.5-4.9 mg/dl Magnesium Level 2.4 1.8-2.4 mg/dl Total Bilirubin 0.2 0.2-1 mg/dl Direct Bilirubin 0.1 0-0.2 mg/dl Aspartate Amino Transf (AST/SGOT) 24 15-37 U/L Alanine Aminotransferase (ALT/SGPT) 19 12-78 U/L Alkaline Phosphatase 44 45-117 U/L Total Protein 3.6 6.4-8.2 gm/dl Albumin 0.9 3.4-5.0 gm/dl Globulin 2.7 2.5-4.0 gm/dl Albumin/Globulin Ratio 0.3 0.9-2 Microbiology Results 12/21/16 Gram Stain - Final, Resulted 12/21/16 Bacterial Culture, Resulted Pending Assessment & Plan 12/21/16 pt with improving urine op but still marginal. will give additional bolus keep ngt. will recheck KUB AM labs pending cont TPN bowels functioning but still has small bowel ileus 12/20/16 6:50 PM re-examined pt. family at bedside. I suspect with ileus, emesis, loose bm's this am, and poor po intake that her main issue right now is dehydration giving bolus' now. also tpn started. will replace ngt output. closely monitor urine op. recheck labs discussed path report with family as well. replace lytes. 12/20/16 POD #7. bowels have opened up but still has ileus on KUB. will add ngt will start tpn. pod 7 with poor po intake leukocytosis but pt also somewhat dry. will rivas cx and add empiric antibiotics for now. will fluid bolus. repeat labs suspect ileus is main issue with some associated dehydration. will continue to monitor closely. 12/22/16 pt looks completely better from yesterday wbc down josé's serous breathing easier continue current care. keep ngt another day. pain control. iv antibiotics. appreciate icu team help out of bed today/pt/ot 12/21/16 pt with improving urine op but still marginal. will give additional bolus keep ngt. will recheck KUB AM labs pending cont TPN bowels functioning but still has small bowel ileus 12/20/16 6:50 PM re-examined pt. family at bedside. I suspect with ileus, emesis, loose bm's this am, and poor po intake that her main issue right now is dehydration giving bolus' now. also tpn started. will replace ngt output. closely monitor urine op. recheck labs discussed path report with family as well. replace lytes. 12/20/16 POD #7. bowels have opened up but still has ileus on KUB. will add ngt will start tpn. pod 7 with poor po intake leukocytosis but pt also somewhat dry. will rivas cx and add empiric antibiotics for now. will fluid bolus. repeat labs suspect ileus is main issue with some associated dehydration. will continue to monitor closely.
[2016-12-22] MEDS: ACETAMINOPHEN IV 650 MG in EMPTY BAG 0 ML IV PRN (07:27)
[2016-12-22] MEDS: SODIUM CHLORIDE 0.9% 1000ML 1,000 ML IV SCH ×2 (07:27→18:45)
--- NOTE | 2016-12-22 08:14 | Progress Note ---
Progress Note Date of Service Dec 22, 2016. Progress Note [employer] Update Genital culture shows e. coli, patient is already on Zosyn - this is sufficient for treatment. Continue current meds as recommended by Dr Rose. Upon discharge, routine followup with [employer].
[2016-12-22] MEDS: CLOBETASOL PROPIONATE 0.05% EXT SCH ×2 (09:24→20:48)
[2016-12-22] MEDS: MENTHOL-ZINC OXIDE 360 APPLN/120 GM TUBE EXT SCH (09:25)
[2016-12-22] MEDS: ENOXAPARIN 30 MG/0.3 ML SYR SQ SCH (09:26)
[2016-12-22] MEDS: FLUTICASONE FUROATE-VILANTEROL 200/25 MCG INH IN SCH (09:26)
[2016-12-22] MEDS: PENTOSAN POLYSULFATE SODIUM 100 MG CAP PO SCH ×2 (09:27→20:48)
[2016-12-22] MEDS: KETOTIFEN FUMARATE (ZADITOR) 0.025% 5 ML BTL OP SCH ×2 (09:27→20:48)
[2016-12-22] MEDS: METRONIDAZOLE VAG 0.75% PV SCH (09:28)
[2016-12-22] MEDS: PANTOprazole INJ 40 MG in SYRINGE 0 ML IV SCH (09:46)
--- NOTE | 2016-12-22 12:33 | Medical Consult ---
Consultation Date of Consultation: Dec 22, 2016. Attending Physician: Andrey Lomax D.O. Reason for Consultation: Abdominal abscesses, multiple antibiotic allergies History of Present Illness 86-year-old female originally admitted December 14 for transverse colectomy because of probable malignant polyp, who subsequently developed signs sepsis with CT scan, read by me, showing intra-abdominal collections consistent with abscess. Patient now has undergone repeat laparotomy with finding of anastomotic leak, drainage of collections, and mucous fistula placement. Blood cultures now reported positive for gram-negative bacilli. Genital culture taken earlier this admission shows E coli, sensitive to most antibiotics. Patient currently receiving Zosyn. Complaining of diffuse weakness and abdominal pain, otherwise has been stable overnight. Currently afebrile. Past Medical/Surgical History Medical Problems: (1) Urinary tract infection Status: Acute (2) Vaginal burning Status: Acute Medical Problems: (1) Colonic mass (2) HTN (hypertension) (3) Interstitial cystitis Surgical Problems: (1) Hx of cervical polypectomy Family History FHx: cancer Hypertension Social History Smoking Status: Never Smoker Drug Use: none Marital Status: Housing Status: lives with significant other Occupation Status: retired Allergies Coded Allergies: Diltiazem (Verified Allergy, Severe, TIGHTENING OF THROAT, 12/13/16) Hydralazine (Verified Allergy, Intermediate, RASH, 12/13/16) Azithromycin (Verified Allergy, Mild, PT UNSURE, 12/13/16) Hydrocodone (Verified Allergy, Mild, GI UPSET, 12/13/16) Meperidine (Verified Allergy, Mild, GI UPSET, 12/13/16) Prochlorperazine (Verified Allergy, Mild, "BODY SHAKES", 12/13/16) Acetaminophen (Verified Allergy, Unknown, GI SYMPTOMS-pt DENIES, 12/13/16) Ciprofloxacin (Verified Allergy, Unknown, GI SYMPTOMS, 12/13/16) Hydrochlorothiazide (Verified Allergy, Unknown, DYSURIA, 12/13/16) Losartan (Verified Allergy, Unknown, JITTERY,SJAKEY, 12/13/16) Nifedipine (Verified Allergy, Unknown, EXACERBATION INTERSTITIAL CYCSTITIS , 12/13/16) Nitrofurantoin (Verified Allergy, Unknown, RASH, 12/13/16) Quinine (Verified Allergy, Unknown, PT UNSURE, 12/13/16) Spironolactone (Verified Allergy, Unknown, RECTAL PRESSURE, PAIN, 12/13/16) Sulfa Antibiotics (Verified Allergy, Unknown, PATIENT UNSURE, 12/13/16) Terazosin (Verified Allergy, Unknown, LIGHTHEADEDNESS AND NAUSEA, 12/13/16) Quinolones (Verified Adverse Reaction, Intermediate, CIPRO- NAUSEA, NERVOUS, CHILLS, 12/13/16) Metronidazole (Verified Adverse Reaction, Mild, STOMACH PAIN, 12/13/16) Simvastatin (Verified Adverse Reaction, Mild, STOMACH PAIN, 12/13/16) Beta Adrenergic Blockers (Verified Adverse Reaction, Unknown, "Secondary AVB", 12/13/16) Lisinopril (Verified Adverse Reaction, Unknown, "INTOLERANCE" PER DR COLON, 12/13/16) Methenamine (Verified Adverse Reaction, Unknown, STOMACH PAIN, 12/13/16) Phenothiazines (Verified Adverse Reaction, Unknown, SHAKEY, 12/13/16) Valdecoxib (Verified Adverse Reaction, Unknown, GI SYMPTOMS, 12/13/16) Current Inpatient Medications Current Inpatient Medications Medications (Trade) Dose Ordered Sig/Aleksander Route Start Time Stop Time Status Last Admin Dose Admin Ondansetron HCl (Zofran Inj) 4 mg Q6H PRN IV 12/13/16 15:00 01/12/17 14:59 12/20/16 07:28 4 MG Albuterol (Ventolin Hfa Inhaler) 2 puffs Q4 PRN INH 12/13/16 15:00 01/12/17 14:59 Amlodipine Besylate (Norvasc Tab) 10 mg QAM PO 12/14/16 09:00 01/13/17 08:59 Future Hold 12/20/16 09:10 10 MG Fluticasone Propionate (Flonase Nasal [place]) 2 sprays DAILY PRN LARRY 12/13/16 15:00 01/12/17 14:59 Loratadine (Claritin Tab) 10 mg DAILY PRN PO 12/13/16 15:00 01/12/17 14:59 Pentosan Polysulfate Sodium (Elmiron) 100 mg BID PO 12/13/16 21:00 01/12/17 20:59 12/22/16 09:27 100 MG Metoclopramide HCl (Reglan Inj) 10 mg Q6H PRN IV. 12/13/16 19:15 01/12/17 19:14 12/20/16 05:36 10 MG Fluticasone/ Vilanterol (Breo Ellipta 200-25 Mcg/Inh) 1 inha DAILY IN 12/14/16 09:00 01/13/17 08:59 12/22/16 09:26 1 INHA Ketotifen Fumarate (Zaditor 0.025% Op Soln) 1 drops Q12 OP 12/14/16 09:00 01/13/17 08:59 12/22/16 09:27 1 DROPS Hydrocortisone 1 appln 1 appln [id number] PRN EXT 12/14/16 07:15 01/13/17 07:14 Future Hold 12/18/16 18:21 1 APPLN Pantoprazole Sodium/Syringe (Protonix Inj/ Syringe) 10 ml @ 5 mls/min DAILY@11 IV 12/15/16 11:00 01/14/17 10:59 12/22/16 09:46 5 MLS/MIN Tramadol HCl 50 mg 50 mg Q4H PRN PO 12/16/16 08:15 01/15/17 08:14 12/17/16 00:52 50 MG Acetaminophen/ Empty Bag (Ofirmev IV/ Empty Iv Bag 100ml) 65 ml @ 260 mls/hr Q6H PRN IV 12/18/16 13:15 01/17/17 13:14 12/22/16 07:27 260 MLS/HR Hard Fat/ Phenylephrine (Anusol Supp) 1 ea BID PRN [place] 12/19/16 09:00 01/18/17 08:59 12/19/16 21:04 1 EA Metronidazole HCl (Metrogel Vag Gel) 2 appln DAILY PV 12/20/16 09:00 12/30/16 08:59 12/22/16 09:28 2 APPLN Menthol/Zinc Oxide (Calmoseptine Oint) 1 appln DAILY EXT 12/20/16 09:00 01/19/17 08:59 12/22/16 09:25 1 APPLN Clobetasol Propionate (Clobetasol Propionate Oint) 1 appln BID EXT 12/19/16 21:00 01/18/17 20:59 12/22/16 09:24 1 APPLN Miscellaneous Information 1 ea 1 ea UD PRN N/A 12/20/16 09:58 01/19/17 09:57 Dextrose (D10w) 1,000 ml @ 0 mls/hr Q0M PRN IV 12/20/16 13:10 01/19/17 13:09 Heparin Sodium (Porcine) 1 ml 1 ml PRN PRN FLUSH 12/20/16 13:15 01/19/17 13:14 Piperacillin Sod/ Tazobactam Sod/ Dextrose (Zosyn Iv/D5 100ml) 115 ml @ 28.75 mls/ hr Q12H IV 12/21/16 00:00 12/31/16 23:59 12/22/16 11:32 28.75 MLS/HR Piperacillin Sod/ Tazobactam Sod (Consult) 1 ea UD PRN N/A 12/20/16 15:45 01/19/17 15:44 Miscellaneous Information 1 ea 1 ea Q6H N/A 12/20/16 21:00 01/19/17 20:59 12/22/16 03:00 1 EA Sodium Chloride 1,000 ml @ 0 mls/hr Q0M PRN IV 12/20/16 17:15 01/19/17 17:14 Nutrition (Parenteral) (Custom Central Pn) 0 ml @ 0 mls/hr TODAY@1600 IV 12/21/16 16:00 12/22/16 15:59 12/21/16 21:33 0 MLS/HR Hydromorphone HCl (Dilaudid Inj) 0.5 mg Q1HWA PRN IV 12/21/16 18:30 01/04/17 18:29 12/22/16 09:47 0.5 MG Enoxaparin Sodium 30 mg 30 mg QAM SQ 12/22/16 09:00 01/21/17 08:59 12/22/16 09:26 30 MG Sodium Chloride 1,000 ml @ 100 mls/hr Q10H IV 12/21/16 22:00 01/20/17 21:59 12/22/16 07:27 100 MLS/HR Nutrition (Parenteral) (Custom Central Pn) 0 ml @ 0 mls/hr TODAY@1600 IV 12/22/16 16:00 12/23/16 15:59 Review of Systems Constitutional: + fatigue, + weakness, No fever Eyes: No problem reported Respiratory: No problem reported Cardiovascular: No problem reported Abdomen: + pain Musculoskeletal: No problem reported Genitourinary - Female: No problem reported Neurologic: No problem reported Psychiatric: No problem reported Endocrine: No problem reported Hematologic / Lymphatic: No problem reported Integumentary: No problem reported Allergic / Immunologic: No problem reported Physical Exam Date Time Temp Pulse Resp B/P Pulse Ox O2 Delivery O2 Flow Rate FiO2 12/22/16 10:30 84 21 93 12/22/16 10:00 106 32 106/35 94 12/22/16 09:30 102 26 94 12/22/16 09:00 101 26 138/66 98 12/22/16 08:30 100 28 95 12/22/16 08:00 Room Air 12/22/16 08:00 37.0 87 25 138/44 95 Room Air 12/22/16 08:00 96 24 136/46 95 12/22/16 07:30 85 22 94 12/22/16 07:00 104 34 138/44 95 12/22/16 06:00 64 19 113/48 92 12/22/16 05:00 90 21 131/38 96 12/22/16 04:18 98 Room Air Mask 12/22/16 04:00 37.2 95 24 136/53 91 12/22/16 03:00 97 26 134/35 97 12/22/16 02:06 92 31 115/45 96 Room Air 12/22/16 02:00 100 25 95 Room Air 12/22/16 01:00 89 25 94 Room Air 12/22/16 00:00 98 Room Air Mask 12/22/16 00:00 36.7 81 31 94 Room Air 12/21/16 23:00 102 16 123/50 94 Room Air 12/21/16 22:00 79 18 92 Room Air 12/21/16 20:00 98 Room Air Mask 12/21/16 19:07 36.5 126/41 12/21/16 19:05 81 29 93/53 98 12/21/16 19:05 81 29 12/21/16 19:00 83 28 12/21/16 19:00 83 28 134/48 100 12/21/16 18:55 90 34 12/21/16 18:55 90 34 141/41 100 12/21/16 18:50 83 32 145/45 100 12/21/16 18:50 84 32 12/21/16 18:45 87 39 12/21/16 18:45 87 39 100 12/21/16 18:44 156/68 12/21/16 18:40 82 35 12/21/16 18:40 98 35 100 12/21/16 18:35 92 42 194/59 99 12/21/16 18:35 93 42 12/21/16 18:31 181/55 12/21/16 18:31 182/49 12/21/16 18:30 36.6 93 38 182/49 99 Mask 10 12/21/16 18:30 92 12 96 12/21/16 18:30 92 12 General Appearance: no apparent distress, + thin Head: normocephalic, atraumatic Eyes: normal inspection, EOMI, sclerae normal ENT: pharynx normal, + pertinent finding ( nasogastric tube in place) Neck: supple, no adenopathy, thyroid normal, trachea midline Respiratory/Chest: chest non-tender, lungs clear, normal breath sounds, no respiratory distress Cardiovascular: regular rate, rhythm, no gallop, no murmur Abdomen/GI: no organomegaly, + tenderness, + abnormal bowel sounds Back: normal inspection, no CVA tenderness Extremities/Musculoskelatal: no calf tenderness, normal capillary refill Neurologic/Psych: alert, oriented x 3 Skin: normal color, warm/dry, no rash Lymphatic: no adenopathy Laboratory Results Date/Time Source Procedure Growth Status 12/21/16 16:22 Drainage-Deep Abdomen Gram Stain - Final Resulted 12/21/16 16:22 Bacterial Culture - Preliminary Gram Negative Bacilli Gram Negative Bacilli#2 Resulted Last 24 Hours Test 12/21/16 17:26 12/21/16 19:47 12/22/16 05:19 Hemoglobin 9.0 g/dL 8.0 g/dL Hematocrit 26.3 % 23.2 % Prothrombin Time 10.2 SECONDS Prothromb Time International Ratio 1.0 Activated Partial Thromboplast Time 43.6 SECONDS Partial Thromboplastin Ratio 1.7 White Blood Count 7.63 K/uL Red Blood Count 2.84 M/uL Mean Corpuscular Volume 81.7 fL Mean Corpuscular Hemoglobin 28.2 pg Mean Corpuscular Hemoglobin Concent 34.5 g/dl Platelet Count 234 K/uL Mean Platelet Volume 9.7 fL Neutrophils (%) (Auto) 86.2 % Lymphocytes (%) (Auto) 6.8 % Monocytes (%) (Auto) 6.2 % Eosinophils (%) (Auto) 0.0 % Basophils (%) (Auto) 0.1 % Neutrophils # (Auto) 6.58 K/uL Lymphocytes # (Auto) 0.52 K/uL Monocytes # (Auto) 0.47 K/uL Eosinophils # (Auto) 0.00 K/uL Basophils # (Auto) 0.01 K/uL RDW Standard Deviation 45.0 fL RDW Coefficient of Variation 15.0 % Immature Granulocyte % (Auto) 0.7 % Immature Granulocyte # (Auto) 0.05 K/uL Nucleated RBC Absolute Count (auto) 0.05 K/uL Nucleated Red Blood Cells % 0.7 % Toxic Granulation 2+ Dohle Bodies 1+ Large Platelets 1+ Echinocytes 2+ Sodium Level 133 mmol/L Potassium Level 4.3 mmol/L Chloride Level 101 mmol/L Carbon Dioxide Level 22 mmol/L Anion Gap 10.0 mmol/L Blood Urea Nitrogen 58 mg/dl Creatinine 1.80 mg/dl Est Creatinine Clear Calc Drug Dose 22.0 ml/min Estimated GFR () 29.4 Estimated GFR (Non- 25.4 BUN/Creatinine Ratio 32.0 Random Glucose 112 mg/dl Calcium Level 6.3 mg/dl Phosphorus Level 4.3 mg/dl Magnesium Level 2.4 mg/dl Total Bilirubin 0.2 mg/dl Direct Bilirubin 0.1 mg/dl Aspartate Amino Transf (AST/SGOT) 24 U/L Alanine Aminotransferase (ALT/SGPT) 19 U/L Alkaline Phosphatase 44 U/L Total Protein 3.6 gm/dl Albumin 0.9 gm/dl Globulin 2.7 gm/dl Albumin/Globulin Ratio 0.3 [~ rep ct add3]] CT OF THE ABDOMEN AND PELVIS WITH ORAL CONTRAST CT DOSE: 723.90 mGy.cm CLINICAL HISTORY: Postoperative leukocytosis. Villous adenoma. Probable malignant liver lesion. TECHNIQUE: Axial images of the abdomen and pelvis were obtained without IV contrast. Oral contrast was administered. COMPARISON STUDY: Right upper quadrant ultrasound September 27, [address] of the abdomen and pelvis October 15, 2016. FINDINGS: Visualized portions of the lower chest demonstrate small bilateral pleural effusions with bilateral lower lobe opacities. There is moderate pneumoperitoneum. The tip of the nasogastric tube is within the proximal body of the stomach. There are findings consistent with a transverse colectomy. There are fluid and gas containing collections within the abdomen and pelvis. There may be peritoneal thickening. A 9.4 x 8.8 cm partially loculated collection within the pelvis, anterior to the rectum and posterior to the uterus is noted. There is also a left anterior abdominal collection that measures 9.6 x 2.9 cm. There are multiple mesenteric fluid collections. Diffuse infiltration is noted within the mesentery. There are several locules of gas adjacent to the spleen. Unenhanced images of liver, adrenal glands, kidneys and pancreas are normal. There is no hydronephrosis. There is no pancreatic ductal dilatation. There is sigmoid diverticulosis without evidence for acute diverticulitis. Mild small bowel dilatation is noted. IMPRESSION: 1. Postoperative findings consistent with a transverse colectomy. Moderate pneumoperitoneum. While this may postsurgical, this is greater than expected and raises the possibility of an anastomotic leak. 2. Multiple fluid and gas containing abdominal and pelvic fluid collections. These are nonspecific in the postoperative period but could reflect developing abscesses. Possible peritoneal thickening. 3. Mild small bowel dilatation without definite transition point. The findings could reflect an ileus or less likely a partial small bowel obstruction. 4. Small bilateral pleural effusions with associated bibasilar opacities which could reflect atelectasis or consolidation. Electronically signed by: Farshad Hopson M.D. 12/21/2016 12:48 PM Dictated Date/Time: 12/21/2016 12:32 PM The status of this report is Signed. Draft = Not yet reviewed or approved by Radiologist. Signed = Reviewed and approved Assessment & Plan Gram-negative sepsis from intra-abdominal infection with abscess formation from anastomotic leak following colectomy.Pending final identification and sensitivities, Zosyn should provide adequate coverage versus most potential pathogens. I will adjust once further information available. Will follow.
--- NOTE | 2016-12-22 12:52 | Progress Note ---
Subjective Date of Service: Dec 22, 2016. Subjective Pt evaluation today including: conversation w/ patient, conversation w/ family , physical exam, lab review, review of studies, conversation w/ sales and leasing consultant, review of inpatient medication list Pain: abdominal pain, less than yesterday PO Intake: sips Voiding: hilario catheter in place patient went to OR last night for washout, found to have anastomotic leak Dr. Lomax took down the anastomosis, created end colostomy with mucous fistula tolerated procedure well and went to the ICU post op seen this AM, sitting up in chair, less abdominal pain no chest pain or dyspnea reviewed labs, cultures in blood and deep wound growing GN bacilli Cr improving Problem List Medical Problems: (1) Urinary tract infection Status: Acute (2) Vaginal burning Status: Acute Review of Systems Constitutional: + fatigue, + weakness ENT: + problem reported (NGT in place) Respiratory: + dyspnea on exertion Abdomen: + constipation, + nausea, + pain, No GI bleeding, No diarrhea, No vomiting Neurologic: + weakness All Other Systems: Reviewed and Negative Medications Current Inpatient Medications Medications (Trade) Dose Ordered Sig/Aleksander Route Start Time Stop Time Status Last Admin Dose Admin Ondansetron HCl (Zofran Inj) 4 mg Q6H PRN IV 12/13/16 15:00 01/12/17 14:59 12/20/16 07:28 4 MG Albuterol (Ventolin Hfa Inhaler) 2 puffs Q4 PRN INH 12/13/16 15:00 01/12/17 14:59 Amlodipine Besylate (Norvasc Tab) 10 mg QAM PO 12/14/16 09:00 01/13/17 08:59 Future Hold 12/20/16 09:10 10 MG Fluticasone Propionate (Flonase Nasal [place]) 2 sprays DAILY PRN LARRY 12/13/16 15:00 01/12/17 14:59 Loratadine (Claritin Tab) 10 mg DAILY PRN PO 12/13/16 15:00 01/12/17 14:59 Pentosan Polysulfate Sodium (Elmiron) 100 mg BID PO 12/13/16 21:00 01/12/17 20:59 12/22/16 09:27 100 MG Metoclopramide HCl (Reglan Inj) 10 mg Q6H PRN IV. 12/13/16 19:15 01/12/17 19:14 12/20/16 05:36 10 MG Fluticasone/ Vilanterol (Breo Ellipta 200-25 Mcg/Inh) 1 inha DAILY IN 12/14/16 09:00 01/13/17 08:59 12/22/16 09:26 1 INHA Ketotifen Fumarate (Zaditor 0.025% Op Soln) 1 drops Q12 OP 12/14/16 09:00 01/13/17 08:59 12/22/16 09:27 1 DROPS Hydrocortisone 1 appln 1 appln [id number] PRN EXT 12/14/16 07:15 01/13/17 07:14 Future Hold 12/18/16 18:21 1 APPLN Pantoprazole Sodium/Syringe (Protonix Inj/ Syringe) 10 ml @ 5 mls/min DAILY@11 IV 12/15/16 11:00 01/14/17 10:59 12/22/16 09:46 5 MLS/MIN Tramadol HCl 50 mg 50 mg Q4H PRN PO 12/16/16 08:15 01/15/17 08:14 12/17/16 00:52 50 MG Acetaminophen/ Empty Bag (Ofirmev IV/ Empty Iv Bag 100ml) 65 ml @ 260 mls/hr Q6H PRN IV 12/18/16 13:15 01/17/17 13:14 12/22/16 07:27 260 MLS/HR Hard Fat/ Phenylephrine (Anusol Supp) 1 ea BID PRN [place] 12/19/16 09:00 01/18/17 08:59 12/19/16 21:04 1 EA Metronidazole HCl (Metrogel Vag Gel) 2 appln DAILY PV 12/20/16 09:00 12/30/16 08:59 12/22/16 09:28 2 APPLN Menthol/Zinc Oxide (Calmoseptine Oint) 1 appln DAILY EXT 12/20/16 09:00 01/19/17 08:59 12/22/16 09:25 1 APPLN Clobetasol Propionate (Clobetasol Propionate Oint) 1 appln BID EXT 12/19/16 21:00 01/18/17 20:59 12/22/16 09:24 1 APPLN Miscellaneous Information 1 ea 1 ea UD PRN N/A 12/20/16 09:58 01/19/17 09:57 Dextrose (D10w) 1,000 ml @ 0 mls/hr Q0M PRN IV 12/20/16 13:10 01/19/17 13:09 Heparin Sodium (Porcine) 1 ml 1 ml PRN PRN FLUSH 12/20/16 13:15 01/19/17 13:14 Piperacillin Sod/ Tazobactam Sod/ Dextrose (Zosyn Iv/D5 100ml) 115 ml @ 28.75 mls/ hr Q12H IV 12/21/16 00:00 12/31/16 23:59 12/22/16 11:32 28.75 MLS/HR Piperacillin Sod/ Tazobactam Sod (Consult) 1 ea UD PRN N/A 12/20/16 15:45 01/19/17 15:44 Miscellaneous Information 1 ea 1 ea Q6H N/A 12/20/16 21:00 01/19/17 20:59 12/22/16 03:00 1 EA Sodium Chloride 1,000 ml @ 0 mls/hr Q0M PRN IV 12/20/16 17:15 01/19/17 17:14 Nutrition (Parenteral) (Custom Central Pn) 0 ml @ 0 mls/hr TODAY@1600 IV 12/21/16 16:00 12/22/16 15:59 12/21/16 21:33 0 MLS/HR Hydromorphone HCl (Dilaudid Inj) 0.5 mg Q1HWA PRN IV 12/21/16 18:30 01/04/17 18:29 12/22/16 09:47 0.5 MG Enoxaparin Sodium 30 mg 30 mg QAM SQ 12/22/16 09:00 01/21/17 08:59 12/22/16 09:26 30 MG Sodium Chloride 1,000 ml @ 100 mls/hr Q10H IV 12/21/16 22:00 01/20/17 21:59 12/22/16 07:27 100 MLS/HR Nutrition (Parenteral) (Custom Central Pn) 0 ml @ 0 mls/hr TODAY@1600 IV 12/22/16 16:00 12/23/16 15:59 Objective Vital Signs Date Time Temp Pulse Resp B/P Pulse Ox O2 Delivery O2 Flow Rate FiO2 12/22/16 10:30 84 21 93 12/22/16 10:00 106 32 106/35 94 12/22/16 09:30 102 26 94 12/22/16 09:00 101 26 138/66 98 12/22/16 08:30 100 28 95 12/22/16 08:00 Room Air 12/22/16 08:00 37.0 87 25 138/44 95 Room Air 12/22/16 08:00 96 24 136/46 95 12/22/16 07:30 85 22 94 12/22/16 07:00 104 34 138/44 95 12/22/16 06:00 64 19 113/48 92 12/22/16 05:00 90 21 131/38 96 12/22/16 04:18 98 Room Air Mask 12/22/16 04:00 37.2 95 24 136/53 91 12/22/16 03:00 97 26 134/35 97 12/22/16 02:06 92 31 115/45 96 Room Air 12/22/16 02:00 100 25 95 Room Air 12/22/16 01:00 89 25 94 Room Air 12/22/16 00:00 98 Room Air Mask 12/22/16 00:00 36.7 81 31 94 Room Air 12/21/16 23:00 102 16 123/50 94 Room Air 12/21/16 22:00 79 18 92 Room Air 12/21/16 20:00 98 Room Air Mask 12/21/16 19:07 36.5 126/41 12/21/16 19:05 81 29 93/53 98 12/21/16 19:05 81 29 12/21/16 19:00 83 28 12/21/16 19:00 83 28 134/48 100 12/21/16 18:55 90 34 12/21/16 18:55 90 34 141/41 100 12/21/16 18:50 83 32 145/45 100 12/21/16 18:50 84 32 12/21/16 18:45 87 39 12/21/16 18:45 87 39 100 12/21/16 18:44 156/68 12/21/16 18:40 82 35 12/21/16 18:40 98 35 100 12/21/16 18:35 92 42 194/59 99 12/21/16 18:35 93 42 12/21/16 18:31 181/55 12/21/16 18:31 182/49 12/21/16 18:30 36.6 93 38 182/49 99 Mask 10 12/21/16 18:30 92 12 96 12/21/16 18:30 92 12 Physical Exam General Appearance: WD/WN, no apparent distress Eyes: normal inspection, EOMI, sclerae normal ENT: normal ENT inspection, hearing grossly normal, pharynx normal Neck: supple, no adenopathy, no JVD, trachea midline Respiratory/Chest: chest non-tender, no respiratory distress, no accessory muscle use, + decreased breath sounds (bases) Cardiovascular: regular rate, rhythm, no edema, no gallop, no JVD, no murmur Abdomen: soft, no organomegaly, + abnormal bowel sounds, + tenderness Extremities: normal range of motion, non-tender, normal inspection, no pedal edema, no calf tenderness Neurologic/Psychiatric: editor index II-XII nml as tested, alert, normal mood/affect, oriented x 3, + motor weakness (generalized) Skin: normal color, warm/dry, no rash Lymphatic: no adenopathy Laboratory Results Last 24 Hours Test 12/21/16 17:26 12/21/16 19:47 12/22/16 05:19 Hemoglobin 9.0 g/dL 8.0 g/dL Hematocrit 26.3 % 23.2 % Prothrombin Time 10.2 SECONDS Prothromb Time International Ratio 1.0 Activated Partial Thromboplast Time 43.6 SECONDS Partial Thromboplastin Ratio 1.7 White Blood Count 7.63 K/uL Red Blood Count 2.84 M/uL Mean Corpuscular Volume 81.7 fL Mean Corpuscular Hemoglobin 28.2 pg Mean Corpuscular Hemoglobin Concent 34.5 g/dl Platelet Count 234 K/uL Mean Platelet Volume 9.7 fL Neutrophils (%) (Auto) 86.2 % Lymphocytes (%) (Auto) 6.8 % Monocytes (%) (Auto) 6.2 % Eosinophils (%) (Auto) 0.0 % Basophils (%) (Auto) 0.1 % Neutrophils # (Auto) 6.58 K/uL Lymphocytes # (Auto) 0.52 K/uL Monocytes # (Auto) 0.47 K/uL Eosinophils # (Auto) 0.00 K/uL Basophils # (Auto) 0.01 K/uL RDW Standard Deviation 45.0 fL RDW Coefficient of Variation 15.0 % Immature Granulocyte % (Auto) 0.7 % Immature Granulocyte # (Auto) 0.05 K/uL Nucleated RBC Absolute Count (auto) 0.05 K/uL Nucleated Red Blood Cells % 0.7 % Toxic Granulation 2+ Dohle Bodies 1+ Large Platelets 1+ Echinocytes 2+ Sodium Level 133 mmol/L Potassium Level 4.3 mmol/L Chloride Level 101 mmol/L Carbon Dioxide Level 22 mmol/L Anion Gap 10.0 mmol/L Blood Urea Nitrogen 58 mg/dl Creatinine 1.80 mg/dl Est Creatinine Clear Calc Drug Dose 22.0 ml/min Estimated GFR () 29.4 Estimated GFR (Non- 25.4 BUN/Creatinine Ratio 32.0 Random Glucose 112 mg/dl Calcium Level 6.3 mg/dl Phosphorus Level 4.3 mg/dl Magnesium Level 2.4 mg/dl Total Bilirubin 0.2 mg/dl Direct Bilirubin 0.1 mg/dl Aspartate Amino Transf (AST/SGOT) 24 U/L Alanine Aminotransferase (ALT/SGPT) 19 U/L Alkaline Phosphatase 44 U/L Total Protein 3.6 gm/dl Albumin 0.9 gm/dl Globulin 2.7 gm/dl Albumin/Globulin Ratio 0.3 Assessment and Plan 86 yo female with history of HTN, GERD, hyperlipidemia and allergies - s/p transverse colectomy, liver biopsy, POD #9 - s/p takedown anastomosis, end colostomy, mucous fistula, abdominal washout 4/7 , POD #1 less abdominal pain today after surgery last night, end colostomy now in place still hypoactive bowel sounds management per surgery deep wound culture growing GN bacilli - Sepsis due to intra-abdominal bowel leak: GN bacilli in wound culture and blood cultures continue Zosyn, afebrile, WBC now normal LA normal last checked, BP preserved, no signs of shock - GABRIEL: likely prerenal, low UO, low sodium which suggests kidneys responding appropriately by holding onto sodium continue fluids, Cr continues to improve with supportive care, down to 1.8 today monitor daily, sodium improved at 133 on TPN per surgery - Syncope: reason for initial consult, occurred on 12/18 most likely vasovagal with pain and nausea and passing gas prior to the event EKG shows some TW inversions in lateral leads, no chest pain reported then or now, troponin 0.026 will order echo, repeat EKG and troponin in the morning or if she has any chest pain or further syncope no focal neurologic deficits on exam, will not perform CT head will continue to follow, diet and pain control per surgery
[2016-12-22] MEDS ORDERED: SODIUM CHLORIDE 0.9% 1000ML 1,000 ML IV SCH (15:30)
--- NOTE | 2016-12-22 15:36 | Critical Care Consultation ---
Critical Care Consultation Date of Consultation: Dec 22, 2016. Attending Physician: Andrey Lomax D.O. Reason for Consultation: Post-op management History of Present Illness This is an 86 y/o female POD#1 s/p ex-lap for anastomotic leak, performed takedown of anastomosis with partial colon resection, end-colostomy with mucous fistula formation, abdominal washout, FRANCINE drain insertion. Had minimal blood loss , 50 ml, was extubated in the PACU, remained hemodynamically stable. Today she is awake, up in chair. The initial surgery was on 12/13, underwent open traverse colectomy for colon CA and excisional biopsy of liver lesion from the left lobe Past Medical/Surgical History HTN Dyslipidemia Cystitis PNA GERD Transverse colon cancer Family History FHx: cancer Hypertension Social History Smoking Status: Never Smoker Drug Use: none Marital Status: Housing Status: lives with significant other Occupation Status: retired Allergies Coded Allergies: Diltiazem (Verified Allergy, Severe, TIGHTENING OF THROAT, 12/13/16) Hydralazine (Verified Allergy, Intermediate, RASH, 12/13/16) Azithromycin (Verified Allergy, Mild, PT UNSURE, 12/13/16) Hydrocodone (Verified Allergy, Mild, GI UPSET, 12/13/16) Meperidine (Verified Allergy, Mild, GI UPSET, 12/13/16) Prochlorperazine (Verified Allergy, Mild, "BODY SHAKES", 12/13/16) Acetaminophen (Verified Allergy, Unknown, GI SYMPTOMS-pt DENIES, 12/13/16) Ciprofloxacin (Verified Allergy, Unknown, GI SYMPTOMS, 12/13/16) Hydrochlorothiazide (Verified Allergy, Unknown, DYSURIA, 12/13/16) Losartan (Verified Allergy, Unknown, JITTERY,SJAKEY, 12/13/16) Nifedipine (Verified Allergy, Unknown, EXACERBATION INTERSTITIAL CYCSTITIS , 12/13/16) Nitrofurantoin (Verified Allergy, Unknown, RASH, 12/13/16) Quinine (Verified Allergy, Unknown, PT UNSURE, 12/13/16) Spironolactone (Verified Allergy, Unknown, RECTAL PRESSURE, PAIN, 12/13/16) Sulfa Antibiotics (Verified Allergy, Unknown, PATIENT UNSURE, 12/13/16) Terazosin (Verified Allergy, Unknown, LIGHTHEADEDNESS AND NAUSEA, 12/13/16) Quinolones (Verified Adverse Reaction, Intermediate, CIPRO- NAUSEA, NERVOUS, CHILLS, 12/13/16) Metronidazole (Verified Adverse Reaction, Mild, STOMACH PAIN, 12/13/16) Simvastatin (Verified Adverse Reaction, Mild, STOMACH PAIN, 12/13/16) Beta Adrenergic Blockers (Verified Adverse Reaction, Unknown, "Secondary AVB", 12/13/16) Lisinopril (Verified Adverse Reaction, Unknown, "INTOLERANCE" PER DR COLON, 12/13/16) Methenamine (Verified Adverse Reaction, Unknown, STOMACH PAIN, 12/13/16) Phenothiazines (Verified Adverse Reaction, Unknown, SHAKEY, 12/13/16) Valdecoxib (Verified Adverse Reaction, Unknown, GI SYMPTOMS, 12/13/16) Home Medications Scheduled Amlodipine (Norvasc), 10 MG PO QAM Atorvastatin (Lipitor), 10 MG PO HS Calcium Glycerophosphate (Prelief), 1 TAB PO PRN Cefuroxime Axetil (Cefuroxime Axetil), 1 TAB PO BID Clobetasol Propionate (Clobetasol Propionate Cream 0.05%), 1 APPLN EXT Q2D Fluticasone Propionate (Nasal) (Flonase Allergy Relief), 2 SPRAYS LARRY PRN Ketotifen Fumarate (Ophth) (Zaditor 0.025% Oph), 1 DROP OP Q12H Loratadine (Claritin), 10 MG PO PRN Metronidazole Vaginal (Metronidazole Vaginal), 1 APPL PV HS Omeprazole (Prilosec), 20 MG PO QAM Pentosan Polysulfate Sodium (Elmiron), 100 MG PO BID Pyridoxine (Vitamin B6), 100 MG PO NOON Telmisartan (Micardis), 80 MG PO QAM Scheduled PRN Albuterol Hfa (Ventolin Hfa), 2 PUFF INH Q4 PRN for Shortness of Breath Fluticasone Furoate-Vilanterol (Breo Ellipta), 1 PUFF INH DAILY PRN for Shortness of Breath Current Inpatient Medications Current Inpatient Medications Medications (Trade) Dose Ordered Sig/Aleksander Route Start Time Stop Time Status Last Admin Dose Admin Ondansetron HCl (Zofran Inj) 4 mg Q6H PRN IV 12/13/16 15:00 01/12/17 14:59 12/20/16 07:28 4 MG Albuterol (Ventolin Hfa Inhaler) 2 puffs Q4 PRN INH 12/13/16 15:00 01/12/17 14:59 Amlodipine Besylate (Norvasc Tab) 10 mg QAM PO 12/14/16 09:00 01/13/17 08:59 Future Hold 12/20/16 09:10 10 MG Fluticasone Propionate (Flonase Nasal [place]) 2 sprays DAILY PRN LARRY 12/13/16 15:00 01/12/17 14:59 Loratadine (Claritin Tab) 10 mg DAILY PRN PO 12/13/16 15:00 01/12/17 14:59 Pentosan Polysulfate Sodium (Elmiron) 100 mg BID PO 12/13/16 21:00 01/12/17 20:59 12/22/16 09:27 100 MG Metoclopramide HCl (Reglan Inj) 10 mg Q6H PRN IV. 12/13/16 19:15 01/12/17 19:14 12/20/16 05:36 10 MG Fluticasone/ Vilanterol (Breo Ellipta 200-25 Mcg/Inh) 1 inha DAILY IN 12/14/16 09:00 01/13/17 08:59 12/22/16 09:26 1 INHA Ketotifen Fumarate (Zaditor 0.025% Op Soln) 1 drops Q12 OP 12/14/16 09:00 01/13/17 08:59 12/22/16 09:27 1 DROPS Hydrocortisone 1 appln 1 appln [id number] PRN EXT 12/14/16 07:15 01/13/17 07:14 Future Hold 12/18/16 18:21 1 APPLN Pantoprazole Sodium/Syringe (Protonix Inj/ Syringe) 10 ml @ 5 mls/min DAILY@11 IV 12/15/16 11:00 01/14/17 10:59 12/22/16 09:46 5 MLS/MIN Tramadol HCl 50 mg 50 mg Q4H PRN PO 12/16/16 08:15 01/15/17 08:14 12/17/16 00:52 50 MG Acetaminophen/ Empty Bag (Ofirmev IV/ Empty Iv Bag 100ml) 65 ml @ 260 mls/hr Q6H PRN IV 12/18/16 13:15 01/17/17 13:14 12/22/16 07:27 260 MLS/HR Hard Fat/ Phenylephrine (Anusol Supp) 1 ea BID PRN DC 12/19/16 09:00 01/18/17 08:59 12/19/16 21:04 1 EA Metronidazole HCl (Metrogel Vag Gel) 2 appln DAILY PV 12/20/16 09:00 12/30/16 08:59 12/22/16 09:28 2 APPLN Menthol/Zinc Oxide (Calmoseptine Oint) 1 appln DAILY EXT 12/20/16 09:00 01/19/17 08:59 12/22/16 09:25 1 APPLN Clobetasol Propionate (Clobetasol Propionate Oint) 1 appln BID EXT 12/19/16 21:00 01/18/17 20:59 12/22/16 09:24 1 APPLN Miscellaneous Information 1 ea 1 ea UD PRN N/A 12/20/16 09:58 01/19/17 09:57 Dextrose (D10w) 1,000 ml @ 0 mls/hr Q0M PRN IV 12/20/16 13:10 01/19/17 13:09 Heparin Sodium (Porcine) 1 ml 1 ml PRN PRN FLUSH 12/20/16 13:15 01/19/17 13:14 Piperacillin Sod/ Tazobactam Sod/ Dextrose (Zosyn Iv/D5 100ml) 115 ml @ 28.75 mls/ hr Q12H IV 12/21/16 00:00 12/31/16 23:59 12/22/16 11:32 28.75 MLS/HR Piperacillin Sod/ Tazobactam Sod (Consult) 1 ea UD PRN N/A 12/20/16 15:45 01/19/17 15:44 Miscellaneous Information 1 ea 1 ea Q6H N/A 12/20/16 21:00 01/19/17 20:59 12/22/16 03:00 1 EA Sodium Chloride 1,000 ml @ 0 mls/hr Q0M PRN IV 12/20/16 17:15 01/19/17 17:14 Nutrition (Parenteral) (Custom Central Pn) 0 ml @ 0 mls/hr TODAY@1600 IV 12/21/16 16:00 12/22/16 15:59 12/21/16 21:33 0 MLS/HR Hydromorphone HCl (Dilaudid Inj) 0.5 mg Q1HWA PRN IV 12/21/16 18:30 01/04/17 18:29 12/22/16 09:47 0.5 MG Enoxaparin Sodium 30 mg 30 mg QAM SQ 12/22/16 09:00 01/21/17 08:59 12/22/16 09:26 30 MG Sodium Chloride 1,000 ml @ 100 mls/hr Q10H IV 12/21/16 22:00 01/20/17 21:59 12/22/16 07:27 100 MLS/HR Nutrition (Parenteral) (Custom Central Pn) 0 ml @ 0 mls/hr TODAY@1600 IV 12/22/16 16:00 12/23/16 15:59 Review of Systems Constitutional: + weakness, No chills, No fever ENT: No problem reported, No sore throat Respiratory: + dyspnea on exertion, No cough, No problem reported, No shortness of breath, No sputum Cardiovascular: No chest pain, No edema, No palpitations, No problem reported Abdomen: + pain Genitourinary - Female: No dysuria Neurologic: No numbness/tingling, No vertigo, No weakness Hematologic / Lymphatic: No abnormal bleeding/bruising, No clotting problems Allergic / Immunologic: + seasonal allergies Physical Exam Date Time Temp Pulse Resp B/P Pulse Ox O2 Delivery O2 Flow Rate FiO2 12/22/16 13:00 88 17 114/41 94 12/22/16 12:30 37.0 82 16 90 12/22/16 12:00 82 18 105/36 93 12/22/16 12:00 94 Room Air 12/22/16 11:30 86 20 95 12/22/16 11:00 93 20 99/34 89 12/22/16 10:30 84 21 93 12/22/16 10:30 84 21 93 12/22/16 10:00 106 32 106/35 94 12/22/16 09:30 102 26 94 12/22/16 09:00 101 26 138/66 98 12/22/16 08:30 100 28 95 12/22/16 08:00 Room Air 12/22/16 08:00 37.0 87 25 138/44 95 Room Air 12/22/16 08:00 96 24 136/46 95 12/22/16 07:30 85 22 94 12/22/16 07:00 104 34 138/44 95 12/22/16 06:00 64 19 113/48 92 12/22/16 05:00 90 21 131/38 96 12/22/16 04:18 98 Room Air Mask 12/22/16 04:00 37.2 95 24 136/53 91 12/22/16 03:00 97 26 134/35 97 12/22/16 02:06 92 31 115/45 96 Room Air 12/22/16 02:00 100 25 95 Room Air 12/22/16 01:00 89 25 94 Room Air 12/22/16 00:00 98 Room Air Mask 12/22/16 00:00 36.7 81 31 94 Room Air 12/21/16 23:00 102 16 123/50 94 Room Air 12/21/16 22:00 79 18 92 Room Air 12/21/16 20:00 98 Room Air Mask 12/21/16 19:07 36.5 126/41 12/21/16 19:05 81 29 93/53 98 12/21/16 19:05 81 29 12/21/16 19:00 83 28 12/21/16 19:00 83 28 134/48 100 12/21/16 18:55 90 34 12/21/16 18:55 90 34 141/41 100 12/21/16 18:50 83 32 145/45 100 12/21/16 18:50 84 32 12/21/16 18:45 87 39 12/21/16 18:45 87 39 100 12/21/16 18:44 156/68 12/21/16 18:40 82 35 12/21/16 18:40 98 35 100 12/21/16 18:35 92 42 194/59 99 12/21/16 18:35 93 42 12/21/16 18:31 181/55 12/21/16 18:31 182/49 12/21/16 18:30 36.6 93 38 182/49 99 Mask 10 12/21/16 18:30 92 12 96 12/21/16 18:30 92 12 General Appearance: well-appearing, WD/WN, no apparent distress Eyes: PERRLA ENT: other (Dry oral mucos) Neck: trachea midline, supple Respiratory: breath sounds normal, clear to auscultation, no respiratory distress Cardiovasular: regular rate/rhythm, normal S1S2, no murmur Abdomen: epigastric TTP, other (FRANCINE drain - LUQ, right sided colostomy) Upper Extremities: no edema Lower Extremities: no edema Neuro: alert, oriented x 3, normal motor exam Laboratory Results Last 24 Hours Test 12/21/16 17:26 12/21/16 19:47 12/22/16 05:19 Hemoglobin 9.0 g/dL 8.0 g/dL Hematocrit 26.3 % 23.2 % Prothrombin Time 10.2 SECONDS Prothromb Time International Ratio 1.0 Activated Partial Thromboplast Time 43.6 SECONDS Partial Thromboplastin Ratio 1.7 White Blood Count 7.63 K/uL Red Blood Count 2.84 M/uL Mean Corpuscular Volume 81.7 fL Mean Corpuscular Hemoglobin 28.2 pg Mean Corpuscular Hemoglobin Concent 34.5 g/dl Platelet Count 234 K/uL Mean Platelet Volume 9.7 fL Neutrophils (%) (Auto) 86.2 % Lymphocytes (%) (Auto) 6.8 % Monocytes (%) (Auto) 6.2 % Eosinophils (%) (Auto) 0.0 % Basophils (%) (Auto) 0.1 % Neutrophils # (Auto) 6.58 K/uL Lymphocytes # (Auto) 0.52 K/uL Monocytes # (Auto) 0.47 K/uL Eosinophils # (Auto) 0.00 K/uL Basophils # (Auto) 0.01 K/uL RDW Standard Deviation 45.0 fL RDW Coefficient of Variation 15.0 % Immature Granulocyte % (Auto) 0.7 % Immature Granulocyte # (Auto) 0.05 K/uL Nucleated RBC Absolute Count (auto) 0.05 K/uL Nucleated Red Blood Cells % 0.7 % Toxic Granulation 2+ Dohle Bodies 1+ Large Platelets 1+ Echinocytes 2+ Sodium Level 133 mmol/L Potassium Level 4.3 mmol/L Chloride Level 101 mmol/L Carbon Dioxide Level 22 mmol/L Anion Gap 10.0 mmol/L Blood Urea Nitrogen 58 mg/dl Creatinine 1.80 mg/dl Est Creatinine Clear Calc Drug Dose 22.0 ml/min Estimated GFR () 29.4 Estimated GFR (Non- 25.4 BUN/Creatinine Ratio 32.0 Random Glucose 112 mg/dl Calcium Level 6.3 mg/dl Phosphorus Level 4.3 mg/dl Magnesium Level 2.4 mg/dl Total Bilirubin 0.2 mg/dl Direct Bilirubin 0.1 mg/dl Aspartate Amino Transf (AST/SGOT) 24 U/L Alanine Aminotransferase (ALT/SGPT) 19 U/L Alkaline Phosphatase 44 U/L Total Protein 3.6 gm/dl Albumin 0.9 gm/dl Globulin 2.7 gm/dl Albumin/Globulin Ratio 0.3 Assessment & Plan 86 year old female POD#1 s/p exlap for anastomotic leak, s/p takedown of anastomosis, colostomy. POD # 8 s/p transverse colectomy and liver biopsy for colon adenoCA. The liver biopsy was negative. On TPN Problems: Abdominal sepsis secondary to anastomotic leak Gram negative gamaliel bacteremia Colon adenocarcinoma Acute kidney injury Plan: Abdominal sepsis - S/p washout Continue Zosyn F/u ID of GNR in the washout Maintain drain S/p colectomy, colostomy, anastomotic leak - continue on TPN for the time being Liver biopsy negative NGT for one more day Colostomy care GNR bacteremia - F/u identification Repeat blood cultures tomorrow Continue Zosyn BP stable, not in shock GABRIEL - Creatinine slowly improving Poor urine output, may still be dehydrated. Bolus 1 liter NS Continue NS @ 100 ml/hr in paralel to TPN @ 43 ml/hr DVT prophylaxis - Lovenox OOB
[2016-12-22] MEDS ORDERED: CUSTOM CENTRAL PN 1 BAG IV SCH (16:00)
[2016-12-23] VITALS (18 sets, daily range): BP systolic 107–177; BP diastolic 45–78; PULSE 61–106; TEMP 36.8–37.3; O2SAT 93–98
[2016-12-23] MEDS: HYDROmorphone INJ 0.5 MG/0.5 ML SYR IV PRN ×9 (00:17→23:38)
[2016-12-23] MEDS: SODIUM CHLORIDE 0.9% 1000ML 1,000 ML IV SCH ×2 (04:21→15:02)
[2016-12-23 06:52] LABS: HEMATOCRIT 19.6 % (37-47); MEAN CELL VOLUME 84.1 fL (80-100); MEAN CORPUSCULAR HEMOGLOBIN 28.3 pg (25-34); MEAN CORPUSCULAR HGB CONC 33.7 g/dl (32-36); MEAN PLATELET VOLUME 9.8 fL (7.4-10.4); PLATELET COUNT 233 K/uL (130-400); RED BLOOD COUNT 2.33 M/uL (4.2-5.4); WHITE BLOOD COUNT 11.65 K/uL (4.8-10.8)
[2016-12-23 07:18] LABS: COMPLETE YES; ECHINOCYTES 1+; LYMPH ABS # 0.31 K/uL (1.2-3.4); LYMPHOCYTE % 2.7 %; NEUTROPHILS % 95.5 %; POIKILOCYTOSIS PRESENT; TOXIC GRANULATION 1+
[2016-12-23] MEDS: MENTHOL-ZINC OXIDE 360 APPLN/120 GM TUBE EXT SCH (08:04)
[2016-12-23] MEDS: CLOBETASOL PROPIONATE 0.05% EXT SCH ×2 (08:05→21:00)
[2016-12-23] MEDS: FLUTICASONE FUROATE-VILANTEROL 200/25 MCG INH IN SCH (08:06)
[2016-12-23] MEDS: METRONIDAZOLE VAG 0.75% PV SCH (08:09)
[2016-12-23] MEDS: KETOTIFEN FUMARATE (ZADITOR) 0.025% 5 ML BTL OP SCH ×2 (08:09→21:00)
[2016-12-23] MEDS: PENTOSAN POLYSULFATE SODIUM 100 MG CAP PO SCH ×2 (08:10→21:32)
[2016-12-23] MEDS: ENOXAPARIN 30 MG/0.3 ML SYR SQ SCH (08:22)
[2016-12-23 09:51] LABS: BUN/CREATININE RATIO 44.3 (10-20); CALCIUM 6.5 mg/dl (8.5-10.1); CREATININE 1.3 mg/dl (0.60-1.20); MAGNESIUM 2.6 mg/dl (1.8-2.4); POTASSIUM 3.7 mmol/L (3.5-5.1)
[2016-12-23 10:01] LABS: ALB/GLOB RATIO 0.3 (0.9-2); PHOSPHORUS 2.6 mg/dl (2.5-4.9)
[2016-12-23] MEDS: PIPERACILL/TAZOBAC IV 3.375 GM in DEXTROSE 5% 100ML 100 ML IV SCH ×2 (11:16→19:19)
[2016-12-23] MEDS: PANTOprazole INJ 40 MG in SYRINGE 0 ML IV SCH (11:16)
--- NOTE | 2016-12-23 12:16 | Surgery Progress Note ---
Surgery Progress Note Date of Service Dec 23, 2016. Subjective Overall better. Family at bedside. Has incisional pain when she tries to move. No nausea but ng tube in place. H/H has drifted lower today with hgb of 6.6 - receiving blood transfusion x 2 units. Objective Vital Signs: Date Time Temp Pulse Resp B/P Pulse Ox O2 Delivery O2 Flow Rate FiO2 12/23/16 11:45 99 18 154/45 93 12/23/16 11:30 85 25 150/51 95 12/23/16 11:15 94 26 151/47 95 12/23/16 11:11 37.0 105 20 107/57 98 2.0 12/23/16 11:00 36.9 61 19 170/57 96 12/23/16 11:00 97 18 154/45 94 Nasal Cannula 2.0 12/23/16 10:00 104 22 152/49 96 Nasal Cannula 2.0 12/23/16 08:00 37.1 104 22 167/69 93 Nasal Cannula 2.0 12/23/16 08:00 96 Nasal Cannula 2.0 12/23/16 06:00 90 25 135/52 95 Nasal Cannula 2.0 12/23/16 04:00 94 Nasal Cannula 2.0 12/23/16 04:00 37.1 84 28 135/53 93 Nasal Cannula 2.0 12/23/16 02:00 104 26 122/49 97 Nasal Cannula 2.0 12/23/16 00:00 37.3 92 18 121/46 94 Nasal Cannula 2.0 12/22/16 23:59 95 Nasal Cannula 12/22/16 22:00 109 24 130/46 95 Nasal Cannula 2.0 12/22/16 20:00 96 Nasal Cannula 12/22/16 20:00 37.2 102 24 106/41 96 Nasal Cannula 2.0 12/22/16 18:09 93 Room Air 12/22/16 16:15 93 Room Air 12/22/16 16:00 36.6 98 24 132/60 92 12/22/16 15:30 93 27 94 12/22/16 15:00 83 29 141/65 12/22/16 14:30 87 17 93 12/22/16 14:00 88 18 135/50 95 12/22/16 14:00 88 18 135/50 95 4/8/17 13:30 88 17 91 12/22/16 13:00 88 17 114/41 94 12/22/16 13:00 88 17 114/41 94 12/22/16 12:30 37.0 82 16 90 Physical Exam: FRANCINE drainage (340 cc), urine output (1200 cc) General Appearance: WD/WN, no apparent distress Head: normocephalic, atraumatic Respiratory/Chest: no respiratory distress, no accessory muscle use, + decreased breath sounds (at bases bilaterally) Cardiovascular: regular rate, rhythm (HR 90-92), no JVD Abdomen: non distended, soft, + abnormal bowel sounds (hypoactive) Incision(s): clean, dry, intact, findings (mucus fistula in place, ostomy viable witih serosanguinous liquid in bag) Laboratory Results: Results Past 24 Hours Test 12/23/16 06:18 12/23/16 08:14 12/23/16 08:24 Range/Units White Blood Count 11.65 4.8-10.8 K/uL Red Blood Count 2.33 4.2-5.4 M/uL Hemoglobin 6.6 12.0-16.0 g/dL Hematocrit 19.6 37-47 % Mean Corpuscular Volume 84.1 80-100 fL Mean Corpuscular Hemoglobin 28.3 25-34 pg Mean Corpuscular Hemoglobin Concent 33.7 32-36 g/dl Platelet Count 233 130-400 K/uL Mean Platelet Volume 9.8 7.4-10.4 fL RDW Standard Deviation 48.5 36.4-46.3 fL RDW Coefficient of Variation 15.6 11.5-14.5 % Neutrophils % (Manual) 95.5 % Lymphocytes % (Manual) 2.7 % Monocytes % (Manual) 1.8 % Neutrophils # (Manual) 11.13 1.4-6.5 K/uL Total Absolute Neutrophils 11.13 1.4-6.5 K/uL Lymphocytes # (Manual) 0.31 1.2-3.4 K/uL Total Absolute Lymphocytes 0.31 1.2-3.4 K/uL Monocytes # (Manual) 0.21 0.11-0.59 K/uL Toxic Granulation 1+ Poikilocytosis PRESENT Echinocytes 1+ Sodium Level 139 136-145 mmol/L Potassium Level 3.7 3.5-5.1 mmol/L Chloride Level 104 98-107 mmol/L Carbon Dioxide Level 24 21-32 mmol/L Anion Gap 11.0 3-11 mmol/L Blood Urea Nitrogen 58 7-18 mg/dl Creatinine 1.30 0.60-1.20 mg/dl Est Creatinine Clear Calc Drug Dose 31.1 ml/min Estimated GFR () 43.6 Estimated GFR (Non- 37.6 BUN/Creatinine Ratio 44.3 10-20 Random Glucose 109 70-99 mg/dl Calcium Level 6.5 8.5-10.1 mg/dl Phosphorus Level 2.6 2.5-4.9 mg/dl Magnesium Level 2.6 1.8-2.4 mg/dl Total Bilirubin 0.2 0.2-1 mg/dl Aspartate Amino Transf (AST/SGOT) 29 15-37 U/L Alanine Aminotransferase (ALT/SGPT) 20 12-78 U/L Alkaline Phosphatase 57 45-117 U/L Total Protein 4.0 6.4-8.2 gm/dl Albumin 0.8 3.4-5.0 gm/dl Globulin 3.2 2.5-4.0 gm/dl Albumin/Globulin Ratio 0.3 0.9-2 Bedside Glucose 106 70-90 mg/dl Microbiology Results 12/23/16 Blood Culture, Received Pending 12/23/16 Blood Culture, Received Pending Assessment & Plan POD#2 from colostomy/ mucus fistula for anastamotic leak. Doing well. Still with ng tube and on tpn. Continue both for now. Encouraged increase of activity today. Will monitor H/H following transfusion.
--- NOTE | 2016-12-23 12:53 | Progress Note ---
Subjective Date of Service: Dec 23, 2016. Subjective Pt evaluation today including: conversation w/ patient, physical exam, lab review, conversation w/ reservoir engineering consultant, review of inpatient medication list Pain: diffuse abdominal pain, controlled with Dilaudid PO Intake: NPO, NGT draining bilious Voiding: hilario catheter in place patient without any issues overnight H/H dropped significantly this AM, no obvious signs of bleeding, getting transfusion constant abdominal pain approximately 50cc in the ostomy bag, serosanguinous fluid in FRANCINE no chest pain or shortness of breath Problem List Medical Problems: (1) Urinary tract infection Status: Acute (2) Vaginal burning Status: Acute Review of Systems Constitutional: + fatigue, + weakness Respiratory: + shortness of breath Abdomen: + nausea, + pain Neurologic: + weakness Psychiatric: + depression symptoms All Other Systems: Reviewed and Negative Medications Current Inpatient Medications Medications (Trade) Dose Ordered Sig/Aleksander Route Start Time Stop Time Status Last Admin Dose Admin Ondansetron HCl (Zofran Inj) 4 mg Q6H PRN IV 12/13/16 15:00 01/12/17 14:59 12/20/16 07:28 4 MG Albuterol (Ventolin Hfa Inhaler) 2 puffs Q4 PRN INH 12/13/16 15:00 01/12/17 14:59 Amlodipine Besylate (Norvasc Tab) 10 mg QAM PO 12/14/16 09:00 01/13/17 08:59 Future Hold 12/20/16 09:10 10 MG Fluticasone Propionate (Flonase Nasal [place]) 2 sprays DAILY PRN LARRY 12/13/16 15:00 01/12/17 14:59 Loratadine (Claritin Tab) 10 mg DAILY PRN PO 12/13/16 15:00 01/12/17 14:59 Pentosan Polysulfate Sodium (Elmiron) 100 mg BID PO 12/13/16 21:00 01/12/17 20:59 12/23/16 08:10 100 MG Metoclopramide HCl (Reglan Inj) 10 mg Q6H PRN IV. 12/13/16 19:15 01/12/17 19:14 12/20/16 05:36 10 MG Fluticasone/ Vilanterol (Breo Ellipta 200-25 Mcg/Inh) 1 inha DAILY IN 12/14/16 09:00 01/13/17 08:59 12/23/16 08:06 1 INHA Ketotifen Fumarate (Zaditor 0.025% Op Soln) 1 drops Q12 OP 12/14/16 09:00 01/13/17 08:59 12/23/16 08:09 1 DROPS Hydrocortisone 1 appln 1 appln [id number] PRN EXT 12/14/16 07:15 01/13/17 07:14 Future Hold 12/18/16 18:21 1 APPLN Pantoprazole Sodium/Syringe (Protonix Inj/ Syringe) 10 ml @ 5 mls/min DAILY@11 IV 12/15/16 11:00 01/14/17 10:59 12/23/16 11:16 5 MLS/MIN Tramadol HCl 50 mg 50 mg Q4H PRN PO 12/16/16 08:15 01/15/17 08:14 12/17/16 00:52 50 MG Acetaminophen/ Empty Bag (Ofirmev IV/ Empty Iv Bag 100ml) 65 ml @ 260 mls/hr Q6H PRN IV 12/18/16 13:15 01/17/17 13:14 12/22/16 07:27 260 MLS/HR Hard Fat/ Phenylephrine (Anusol Supp) 1 ea BID PRN [place] 12/19/16 09:00 01/18/17 08:59 12/19/16 21:04 1 EA Metronidazole HCl (Metrogel Vag Gel) 2 appln DAILY PV 12/20/16 09:00 12/30/16 08:59 12/23/16 08:09 2 APPLN Menthol/Zinc Oxide (Calmoseptine Oint) 1 appln DAILY EXT 12/20/16 09:00 01/19/17 08:59 12/23/16 08:04 1 APPLN Clobetasol Propionate (Clobetasol Propionate Oint) 1 appln BID EXT 12/19/16 21:00 01/18/17 20:59 12/23/16 08:05 1 APPLN Miscellaneous Information 1 ea 1 ea UD PRN N/A 12/20/16 09:58 01/19/17 09:57 Dextrose (D10w) 1,000 ml @ 0 mls/hr Q0M PRN IV 12/20/16 13:10 01/19/17 13:09 Heparin Sodium (Porcine) 1 ml 1 ml PRN PRN FLUSH 12/20/16 13:15 01/19/17 13:14 Piperacillin Sod/ Tazobactam Sod/ Dextrose (Zosyn Iv/D5 100ml) 115 ml @ 28.75 mls/ hr Q12H IV 12/21/16 00:00 12/31/16 23:59 12/23/16 11:16 28.75 MLS/HR Piperacillin Sod/ Tazobactam Sod (Consult) 1 ea UD PRN N/A 12/20/16 15:45 01/19/17 15:44 Miscellaneous Information 1 ea 1 ea Q6H N/A 12/20/16 21:00 01/19/17 20:59 12/23/16 08:08 1 EA Sodium Chloride (Nss 1000ml) 1,000 ml @ 0 mls/hr Q0M PRN IV 12/20/16 17:15 01/19/17 17:14 Hydromorphone HCl (Dilaudid Inj) 0.5 mg Q1HWA PRN IV 12/21/16 18:30 01/04/17 18:29 12/23/16 11:30 0.5 MG Enoxaparin Sodium 30 mg 30 mg QAM SQ 12/22/16 09:00 01/21/17 08:59 12/23/16 08:22 30 MG Sodium Chloride 1,000 ml @ 64 mls/hr [id number] IV 12/21/16 22:00 01/20/17 21:59 12/23/16 04:21 100 MLS/HR Nutrition (Parenteral) 0 ml @ 0 mls/hr TODAY@1600 IV 12/22/16 16:00 12/23/16 15:59 12/22/16 15:51 0 MLS/HR Nutrition (Parenteral) (Custom Central Pn) 0 ml @ 0 mls/hr TODAY@1600 IV 12/23/16 16:00 12/24/16 15:59 Objective Vital Signs Date Time Temp Pulse Resp B/P Pulse Ox O2 Delivery O2 Flow Rate FiO2 12/23/16 12:00 96 Nasal Cannula 2.0 12/23/16 11:45 99 18 154/45 93 12/23/16 11:30 85 25 150/51 95 12/23/16 11:15 94 26 151/47 95 12/23/16 11:11 37.0 105 20 107/57 98 2.0 12/23/16 11:00 36.9 61 19 170/57 96 12/23/16 11:00 97 18 154/45 94 Nasal Cannula 2.0 12/23/16 10:00 104 22 152/49 96 Nasal Cannula 2.0 12/23/16 08:00 37.1 104 22 167/69 93 Nasal Cannula 2.0 12/23/16 08:00 96 Nasal Cannula 2.0 12/23/16 06:00 90 25 135/52 95 Nasal Cannula 2.0 12/23/16 04:00 94 Nasal Cannula 2.0 12/23/16 04:00 37.1 84 28 135/53 93 Nasal Cannula 2.0 12/23/16 02:00 104 26 122/49 97 Nasal Cannula 2.0 12/23/16 00:00 37.3 92 18 121/46 94 Nasal Cannula 2.0 12/22/16 23:59 95 Nasal Cannula 12/22/16 22:00 109 24 130/46 95 Nasal Cannula 2.0 12/22/16 20:00 96 Nasal Cannula 12/22/16 20:00 37.2 102 24 106/41 96 Nasal Cannula 2.0 12/22/16 18:09 93 Room Air 12/22/16 16:15 93 Room Air 12/22/16 16:00 36.6 98 24 132/60 92 12/22/16 15:30 93 27 94 12/22/16 15:00 83 29 141/65 12/22/16 14:30 87 17 93 12/22/16 14:00 88 18 135/50 95 12/22/16 14:00 88 18 135/50 95 12/22/16 13:30 88 17 91 12/22/16 13:00 88 17 114/41 94 12/22/16 13:00 88 17 114/41 94 Physical Exam General Appearance: no apparent distress, + thin Eyes: normal inspection, EOMI, sclerae normal Neck: supple, no adenopathy, no JVD, trachea midline Respiratory/Chest: chest non-tender, lungs clear, no respiratory distress, no accessory muscle use, + decreased breath sounds (bases) Cardiovascular: regular rate, rhythm, no edema, no gallop, no JVD, no murmur Abdomen: soft, no organomegaly, + abnormal bowel sounds (absent), + distended, + tenderness Extremities: normal range of motion, non-tender, normal inspection, no pedal edema, no calf tenderness Neurologic/Psychiatric: 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, alert, oriented x 3, + motor weakness (generalized), + depressed affect Skin: normal color, warm/dry, no rash Laboratory Results Last 24 Hours Test 12/23/16 06:18 12/23/16 08:14 12/23/16 08:24 White Blood Count 11.65 K/uL Red Blood Count 2.33 M/uL Hemoglobin 6.6 g/dL Hematocrit 19.6 % Mean Corpuscular Volume 84.1 fL Mean Corpuscular Hemoglobin 28.3 pg Mean Corpuscular Hemoglobin Concent 33.7 g/dl Platelet Count 233 K/uL Mean Platelet Volume 9.8 fL RDW Standard Deviation 48.5 fL RDW Coefficient of Variation 15.6 % Neutrophils % (Manual) 95.5 % Lymphocytes % (Manual) 2.7 % Monocytes % (Manual) 1.8 % Neutrophils # (Manual) 11.13 K/uL Total Absolute Neutrophils 11.13 K/uL Lymphocytes # (Manual) 0.31 K/uL Total Absolute Lymphocytes 0.31 K/uL Monocytes # (Manual) 0.21 K/uL Toxic Granulation 1+ Poikilocytosis PRESENT Echinocytes 1+ Sodium Level 139 mmol/L Potassium Level 3.7 mmol/L Chloride Level 104 mmol/L Carbon Dioxide Level 24 mmol/L Anion Gap 11.0 mmol/L Blood Urea Nitrogen 58 mg/dl Creatinine 1.30 mg/dl Est Creatinine Clear Calc Drug Dose 31.1 ml/min Estimated GFR () 43.6 Estimated GFR (Non- 37.6 BUN/Creatinine Ratio 44.3 Random Glucose 109 mg/dl Calcium Level 6.5 mg/dl Phosphorus Level 2.6 mg/dl Magnesium Level 2.6 mg/dl Total Bilirubin 0.2 mg/dl Aspartate Amino Transf (AST/SGOT) 29 U/L Alanine Aminotransferase (ALT/SGPT) 20 U/L Alkaline Phosphatase 57 U/L Total Protein 4.0 gm/dl Albumin 0.8 gm/dl Globulin 3.2 gm/dl Albumin/Globulin Ratio 0.3 Bedside Glucose 106 mg/dl Assessment and Plan 86 yo female with history of HTN, GERD, hyperlipidemia and allergies - s/p transverse colectomy, liver biopsy, POD #10 - s/p takedown anastomosis, end colostomy, mucous fistula, abdominal washout 4/7 , POD #2 still with abdominal pain today requiring Dilaudid, end colostomy now in place, 50cc in the bag still hypoactive bowel sounds, borderline absent NGT with significant bilious drainage today management per surgery deep wound culture growing E coli, Serratia, Strep... change Zosyn to Ertapenem today - Acute blood loss anemia: secondary to surgery will transfuse 2 units, follow up repeat H/H, BP stable no obvious signs of timbo bleeding - Sepsis due to intra-abdominal bowel leak: blood cultures growing Serratia, wound culture growing E coli and Strep and Serratia change Zosyn to Ertapenem, afebrile, WBC normal BP preserved, no signs of shock - GABRIEL: likely prerenal and caused by poor oral intake for days after surgery responding well to IV fluids, Cr down to 1.3 from a peak of 2.7 several days ago, adequate UO continue fluids, continue TPN per surgery keep in ICU, transfuse 2 units and follow up H/H, diet and bowel management per surgery
--- NOTE | 2016-12-23 13:34 | Critical Care Progress Note ---
Critical Care Progress Note Date of Service Dec 23, 2016. Attending Dr. 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 POD # 8 s/p transverse colectomy and liver biopsy for colon adenoCA. The liver biopsy was negative. On TPN Problems: Abdominal sepsis secondary to anastomotic leak Gram negative gamaliel bacteremia Colon adenocarcinoma Acute kidney injury Anemia Plan: Abdominal sepsis - S/p washout Continue Zosyn F/u ID of GNR in the washout Maintain drain S/p colectomy, colostomy, anastomotic leak - continue on TPN for the time being Liver biopsy negative Continue NGT - still draining significantly Colostomy care GNR bacteremia - Serratia. Also growing Serratia, E coli and Streptococcus (likely enterococcus) in the abdominal washing Change Zosyn to ertapenem, much better ADORE BP stable, not in shock Repeated blood cultures today GABRIEL - Creatinine slowly Urine output improving slowly Continue NS @ 64 ml/hr in parallel to TPN @ 43 ml/hr Maintain Zepeda Anemia- transfuse 2 units PRBC today. No visible bleeding. Likely has a dilutional component from the fluids she received yesterday DVT prophylaxis - Lovenox, no visible bleeding, may continue for now OOB Consults & Procedures Consultants: Surgery - Dr Lomax ID - Dr Francis Procedures: 12/13 - transverse colectomy and liver biopsy for colon adenoCA 12/21 - ex-lap with washout for anastomotic leak Data Medications: Current Inpatient Medications Medications (Trade) Dose Ordered Sig/Aleksander Route Start Time Stop Time Status Last Admin Dose Admin Ondansetron HCl (Zofran Inj) 4 mg Q6H PRN IV 12/13/16 15:00 01/12/17 14:59 12/20/16 07:28 4 MG Albuterol (Ventolin Hfa Inhaler) 2 puffs Q4 PRN INH 12/13/16 15:00 01/12/17 14:59 Amlodipine Besylate (Norvasc Tab) 10 mg QAM PO 12/14/16 09:00 01/13/17 08:59 Future Hold 12/20/16 09:10 10 MG Fluticasone Propionate (Flonase Nasal [place]) 2 sprays DAILY PRN LARRY 12/13/16 15:00 01/12/17 14:59 Loratadine (Claritin Tab) 10 mg DAILY PRN PO 12/13/16 15:00 01/12/17 14:59 Pentosan Polysulfate Sodium (Elmiron) 100 mg BID PO 12/13/16 21:00 01/12/17 20:59 12/23/16 08:10 100 MG Metoclopramide HCl (Reglan Inj) 10 mg Q6H PRN IV. 12/13/16 19:15 01/12/17 19:14 12/20/16 05:36 10 MG Fluticasone/ Vilanterol (Breo Ellipta 200-25 Mcg/Inh) 1 inha DAILY IN 12/14/16 09:00 01/13/17 08:59 12/23/16 08:06 1 INHA Ketotifen Fumarate (Zaditor 0.025% Op Soln) 1 drops Q12 OP 12/14/16 09:00 01/13/17 08:59 12/23/16 08:09 1 DROPS Hydrocortisone 1 appln 1 appln [id number] PRN EXT 12/14/16 07:15 01/13/17 07:14 Future Hold 12/18/16 18:21 1 APPLN Pantoprazole Sodium/Syringe (Protonix Inj/ Syringe) 10 ml @ 5 mls/min DAILY@11 IV 12/15/16 11:00 01/14/17 10:59 12/23/16 11:16 5 MLS/MIN Tramadol HCl 50 mg 50 mg Q4H PRN PO 12/16/16 08:15 01/15/17 08:14 12/17/16 00:52 50 MG Acetaminophen/ Empty Bag (Ofirmev IV/ Empty Iv Bag 100ml) 65 ml @ 260 mls/hr Q6H PRN IV 12/18/16 13:15 01/17/17 13:14 12/22/16 07:27 260 MLS/HR Hard Fat/ Phenylephrine (Anusol Supp) 1 ea BID PRN [place] 12/19/16 09:00 01/18/17 08:59 12/19/16 21:04 1 EA Metronidazole HCl (Metrogel Vag Gel) 2 appln DAILY PV 12/20/16 09:00 12/30/16 08:59 12/23/16 08:09 2 APPLN Menthol/Zinc Oxide (Calmoseptine Oint) 1 appln DAILY EXT 12/20/16 09:00 01/19/17 08:59 12/23/16 08:04 1 APPLN Clobetasol Propionate (Clobetasol Propionate Oint) 1 appln BID EXT 12/19/16 21:00 01/18/17 20:59 12/23/16 08:05 1 APPLN Miscellaneous Information 1 ea 1 ea UD PRN N/A 12/20/16 09:58 01/19/17 09:57 Dextrose (D10w) 1,000 ml @ 0 mls/hr Q0M PRN IV 12/20/16 13:10 01/19/17 13:09 Heparin Sodium (Porcine) 1 ml 1 ml PRN PRN FLUSH 12/20/16 13:15 01/19/17 13:14 Piperacillin Sod/ Tazobactam Sod/ Dextrose (Zosyn Iv/D5 100ml) 115 ml @ 28.75 mls/ hr Q12H IV 12/21/16 00:00 12/31/16 23:59 12/23/16 11:16 28.75 MLS/HR Piperacillin Sod/ Tazobactam Sod (Consult) 1 ea UD PRN N/A 12/20/16 15:45 01/19/17 15:44 Miscellaneous Information 1 ea 1 ea Q6H N/A 12/20/16 21:00 01/19/17 20:59 12/23/16 08:08 1 EA Sodium Chloride (Nss 1000ml) 1,000 ml @ 0 mls/hr Q0M PRN IV 12/20/16 17:15 01/19/17 17:14 Hydromorphone HCl (Dilaudid Inj) 0.5 mg Q1HWA PRN IV 12/21/16 18:30 01/04/17 18:29 12/23/16 11:30 0.5 MG Enoxaparin Sodium 30 mg 30 mg QAM SQ 12/22/16 09:00 01/21/17 08:59 12/23/16 08:22 30 MG Sodium Chloride 1,000 ml @ 64 mls/hr [id number] IV 12/21/16 22:00 01/20/17 21:59 12/23/16 04:21 100 MLS/HR Nutrition (Parenteral) 0 ml @ 0 mls/hr TODAY@1600 IV 12/22/16 16:00 12/23/16 15:59 12/22/16 15:51 0 MLS/HR Nutrition (Parenteral) (Custom Central Pn) 0 ml @ 0 mls/hr TODAY@1600 IV 12/23/16 16:00 12/24/16 15:59 I & O: 24-Hour Column 12/23/16 08:00 Intake Total 4596 ml Output Total 2290 ml Balance 2306 ml Vital Signs: Date Time Temp Pulse Resp B/P Pulse Ox O2 Delivery O2 Flow Rate FiO2 12/23/16 12:00 96 Nasal Cannula 2.0 12/23/16 11:45 99 18 154/45 93 12/23/16 11:30 85 25 150/51 95 12/23/16 11:15 94 26 151/47 95 12/23/16 11:11 37.0 105 20 107/57 98 2.0 12/23/16 11:00 36.9 61 19 170/57 96 12/23/16 11:00 97 18 154/45 94 Nasal Cannula 2.0 12/23/16 10:00 104 22 152/49 96 Nasal Cannula 2.0 12/23/16 08:00 37.1 104 22 167/69 93 Nasal Cannula 2.0 12/23/16 08:00 96 Nasal Cannula 2.0 12/23/16 06:00 90 25 135/52 95 Nasal Cannula 2.0 12/23/16 04:00 94 Nasal Cannula 2.0 12/23/16 04:00 37.1 84 28 135/53 93 Nasal Cannula 2.0 12/23/16 02:00 104 26 122/49 97 Nasal Cannula 2.0 12/23/16 00:00 37.3 92 18 121/46 94 Nasal Cannula 2.0 12/22/16 23:59 95 Nasal Cannula 12/22/16 22:00 109 24 130/46 95 Nasal Cannula 2.0 12/22/16 20:00 96 Nasal Cannula 12/22/16 20:00 37.2 102 24 106/41 96 Nasal Cannula 2.0 12/22/16 18:09 93 Room Air 12/22/16 16:15 93 Room Air 12/22/16 16:00 36.6 98 24 132/60 92 12/22/16 15:30 93 27 94 12/22/16 15:00 83 29 141/65 12/22/16 14:30 87 17 93 12/22/16 14:00 88 18 135/50 95 12/22/16 14:00 88 18 135/50 95 12/22/16 13:30 88 17 91 Laboratory Results: Last 24 Hours Test 12/23/16 06:18 12/23/16 08:14 12/23/16 08:24 White Blood Count 11.65 K/uL Red Blood Count 2.33 M/uL Hemoglobin 6.6 g/dL Hematocrit 19.6 % Mean Corpuscular Volume 84.1 fL Mean Corpuscular Hemoglobin 28.3 pg Mean Corpuscular Hemoglobin Concent 33.7 g/dl Platelet Count 233 K/uL Mean Platelet Volume 9.8 fL RDW Standard Deviation 48.5 fL RDW Coefficient of Variation 15.6 % Neutrophils % (Manual) 95.5 % Lymphocytes % (Manual) 2.7 % Monocytes % (Manual) 1.8 % Neutrophils # (Manual) 11.13 K/uL Total Absolute Neutrophils 11.13 K/uL Lymphocytes # (Manual) 0.31 K/uL Total Absolute Lymphocytes 0.31 K/uL Monocytes # (Manual) 0.21 K/uL Toxic Granulation 1+ Poikilocytosis PRESENT Echinocytes 1+ Sodium Level 139 mmol/L Potassium Level 3.7 mmol/L Chloride Level 104 mmol/L Carbon Dioxide Level 24 mmol/L Anion Gap 11.0 mmol/L Blood Urea Nitrogen 58 mg/dl Creatinine 1.30 mg/dl Est Creatinine Clear Calc Drug Dose 31.1 ml/min Estimated GFR () 43.6 Estimated GFR (Non- 37.6 BUN/Creatinine Ratio 44.3 Random Glucose 109 mg/dl Calcium Level 6.5 mg/dl Phosphorus Level 2.6 mg/dl Magnesium Level 2.6 mg/dl Total Bilirubin 0.2 mg/dl Aspartate Amino Transf (AST/SGOT) 29 U/L Alanine Aminotransferase (ALT/SGPT) 20 U/L Alkaline Phosphatase 57 U/L Total Protein 4.0 gm/dl Albumin 0.8 gm/dl Globulin 3.2 gm/dl Albumin/Globulin Ratio 0.3 Bedside Glucose 106 mg/dl
[2016-12-23] MEDS ORDERED: CUSTOM CENTRAL PN 1 BAG IV SCH (16:00)
[2016-12-23 18:10] LABS: HEMATOCRIT 28.8 % (37-47); MEAN CELL VOLUME 83.2 fL (80-100); MEAN CORPUSCULAR HEMOGLOBIN 28.9 pg (25-34); MEAN CORPUSCULAR HGB CONC 34.7 g/dl (32-36); MEAN PLATELET VOLUME 9.6 fL (7.4-10.4); PLATELET COUNT 246 K/uL (130-400); RED BLOOD COUNT 3.46 M/uL (4.2-5.4); WHITE BLOOD COUNT 14.27 K/uL (4.8-10.8)
[2016-12-24] VITALS (14 sets, daily range): BP systolic 127–174; BP diastolic 55–84; PULSE 62–109; TEMP 36.7–37.3; O2SAT 93–98
[2016-12-24] MEDS: HYDROmorphone INJ 0.5 MG/0.5 ML SYR IV PRN ×9 (01:16→22:16)
[2016-12-24] MEDS: ACETAMINOPHEN IV 650 MG in EMPTY BAG 0 ML IV PRN (02:54)
[2016-12-24] MEDS: PIPERACILL/TAZOBAC IV 3.375 GM in DEXTROSE 5% 100ML 100 ML IV SCH ×3 (04:00→20:10)
[2016-12-24 04:56] LABS: HEMATOCRIT 28.1 % (37-47); MEAN CELL VOLUME 83.6 fL (80-100); MEAN CORPUSCULAR HEMOGLOBIN 28.9 pg (25-34); MEAN CORPUSCULAR HGB CONC 34.5 g/dl (32-36); MEAN PLATELET VOLUME 9.4 fL (7.4-10.4); PLATELET COUNT 258 K/uL (130-400); RED BLOOD COUNT 3.36 M/uL (4.2-5.4); WHITE BLOOD COUNT 13.66 K/uL (4.8-10.8)
[2016-12-24 05:20] LABS: BASO ABS # 0.13 K/uL (0-0.2); COMPLETE YES; EOS % 0.1 %; IG% 1.2 %; LYMPH % 7.7 %; LYMPH ABS # 1.05 K/uL (1.2-3.4); MONO % 5.9 %; NEUT % 84.1 %; TOXIC GRANULATION 1+
[2016-12-24 05:29] LABS: BUN/CREATININE RATIO 48.9 (10-20); CALCIUM 6.7 mg/dl (8.5-10.1); CREATININE 0.83 mg/dl (0.60-1.20); MAGNESIUM 2.2 mg/dl (1.8-2.4); PHOSPHORUS 2.4 mg/dl (2.5-4.9); POTASSIUM 3.9 mmol/L (3.5-5.1)
--- NOTE | 2016-12-24 07:04 | OPERATIVE REPORT ---
DATE OF OPERATION: 12/21/2016 PREOPERATIVE DIAGNOSIS: Abdominal fluid collection/abscess. POSTOPERATIVE DIAGNOSIS: Anastomotic breakdown. PROCEDURE: Exploratory laparotomy with takedown of colonic anastomosis, partial colon resection, formation of end colostomy and mucous fistula as well as abdominal washout. SURGEON: Andrey Lomax DO ESTIMATED BLOOD LOSS: Approximately 50 mL. COMPLICATIONS: No immediate. ANESTHESIA: General. DESCRIPTION OF PROCEDURE: After informed consent was obtained, patient was taken to the operating suite, placed in supine position. The previous FRANCINE drain which was not putting out anything really was removed and the midline cristine were removed as well. The abdomen was then sterilely prepped and draped with Betadine solution. I was able to open the skin with my fingers and then took down the PDS sutures with suture scissors and opened the abdominal fascia. Once in the abdomen, we noted normal appearing small bowel was slightly dilated. As I finger fractionated light adhesions, I encountered multiple big pockets of yellowish thin fluid, there was a large in the left mid abdomen and a large one in the pelvis. I was able to break these up and suctioned everything out. Initially, I did not think she had an anastomotic leak because she did not have a foul odor or fecal material initially. As I began slowly finger fractionating the mesentery of the small bowel, I did note some fecal material in the left upper quadrant followed by a foul smell. We did obtain fluid cultures. As I took down some small bowel and omentum that had adhered to the anastomosis, there was a posterior breakdown of the staple line. This of course was quite disappointing. I tediously freed up the transverse colon and the area around the anastomosis. I continued to free this up along the white line of Toldt laterally the whole way down to the sigmoid colon as well as freed up the colon over to the hepatic flexure. I made a small window in the transverse colon just proximal to the anastomosis and stapled it off using a LARS linear stapler. I used the same technique distal to the broken down anastomosis. I then used a LigaSure device to take down the mesentery and passed off the colon with the anastomosis in the middle of it. I then thoroughly irrigated the abdomen with multiple liters of warm irrigating solution. There was no evidence of any ischemia at the anastomosis, there was no evidence of any ischemia elsewhere. There was no hematoma. Quite honestly, I do not know reason the anastomosis failed. Nonetheless, in the left lower quadrant, I made a circular incision through the fascia and skin and brought out the remaining left and sigmoid colon as a mucous fistula. I would mature it at the end of the case in Jessica fashion with 3-0 Monocryl. I also mobilized the distal right and the proximal transverse colon and made a circular incision in the right upper quadrant and was able to deliver the right colon out through this and I would form an end colostomy here at the end of the procedure as well. Once I did all this, I inspected the remaining organs, no other abnormality. We did a final washout. I used a 19-Tima drain and put in the right upper quadrant and a second one put down into the pelvis, brought through a separate stab incision and was secured in the skin using 2-0 silk. We then closed the fascia using #1 PDS in a running fashion starting at either pole and securing them in the midline. Soft tissue was irrigated and skin was reapproximated very loosely with skin cristine followed by a silver dressing. I then fashioned the mucous fistula and the colostomy using 3-0 Monocryl. We placed an appliance over the colostomy and a gauze and tape over the mucous fistula. The patient was going to be attempted to be extubated. We were going to transfer to the intensive care unit in critical condition. I attest to the content of the Intraoperative Record and any orders documented therein. Any exceptio ns are noted below.
--- NOTE | 2016-12-24 07:30 | Anesthesiology Progress Note ---
Anesthesia Post Op Note Date & Time Dec 24, 2016 at 07:29 Vital Signs Vital Signs Past 12 Hours Date Time Temp Pulse Resp B/P Pulse Ox O2 Delivery O2 Flow Rate FiO2 12/24/16 06:00 95 21 155/75 94 Nasal Cannula 2.0 12/24/16 04:00 95 Nasal Cannula 2.0 12/24/16 04:00 36.7 62 21 128/61 93 Nasal Cannula 2.0 12/24/16 02:00 68 19 131/56 93 Nasal Cannula 2.0 12/24/16 00:00 36.8 82 21 141/69 94 Nasal Cannula 2.0 12/23/16 23:59 94 Nasal Cannula 2.0 12/23/16 22:00 82 18 165/70 94 Nasal Cannula 2.0 12/23/16 20:00 95 Nasal Cannula 2.0 12/23/16 20:00 36.8 95 24 170/74 94 Nasal Cannula 2.0 Notes Mental Status: alert / awake / arousable, participated in evaluation Pt Amnestic to Procedure: Yes Nausea / Vomiting: adequately controlled Pain: adequately controlled Airway Patency, RR, SpO2: stable & adequate BP & HR: stable & adequate Hydration State: stable & adequate Anesthetic Complications: no major complications apparent
[2016-12-24] MEDS: ENOXAPARIN 30 MG/0.3 ML SYR SQ SCH (07:59)
[2016-12-24] MEDS: SODIUM CHLORIDE 0.9% 1000ML 1,000 ML IV SCH (08:00)
[2016-12-24] MEDS: CLOBETASOL PROPIONATE 0.05% EXT SCH ×2 (08:00→21:44)
[2016-12-24] MEDS: MENTHOL-ZINC OXIDE 360 APPLN/120 GM TUBE EXT SCH (08:00)
[2016-12-24] MEDS: KETOTIFEN FUMARATE (ZADITOR) 0.025% 5 ML BTL OP SCH ×2 (08:00→21:42)
[2016-12-24] MEDS: FLUTICASONE FUROATE-VILANTEROL 200/25 MCG INH IN SCH (08:00)
[2016-12-24] MEDS: PENTOSAN POLYSULFATE SODIUM 100 MG CAP PO SCH ×3 (08:01→21:41)
[2016-12-24] MEDS: METRONIDAZOLE VAG 0.75% PV SCH (08:01)
--- NOTE | 2016-12-24 08:31 | Surgery Progress Note ---
Surgery Progress Note Date of Service Dec 24, 2016. Subjective Post OP Day: 3 No complaints Objective Vital Signs: Date Time Temp Pulse Resp B/P Pulse Ox O2 Delivery O2 Flow Rate FiO2 12/24/16 06:00 95 21 155/75 94 Nasal Cannula 2.0 12/24/16 04:00 95 Nasal Cannula 2.0 12/24/16 04:00 36.7 62 21 128/61 93 Nasal Cannula 2.0 12/24/16 02:00 68 19 131/56 93 Nasal Cannula 2.0 12/24/16 00:00 36.8 82 21 141/69 94 Nasal Cannula 2.0 12/23/16 23:59 94 Nasal Cannula 2.0 12/23/16 22:00 82 18 165/70 94 Nasal Cannula 2.0 12/23/16 20:00 95 Nasal Cannula 2.0 12/23/16 20:00 36.8 95 24 170/74 94 Nasal Cannula 2.0 12/23/16 18:00 101 18 166/78 94 Nasal Cannula 2.0 12/23/16 16:00 95 Nasal Cannula 2.0 12/23/16 16:00 106 30 174/53 95 Nasal Cannula 2.0 12/23/16 14:00 37.0 97 22 177/54 97 Nasal Cannula 2.0 12/23/16 12:00 96 Nasal Cannula 2.0 12/23/16 11:45 99 18 154/45 93 12/23/16 11:30 85 25 150/51 95 12/23/16 11:15 94 26 151/47 95 12/23/16 11:11 37.0 105 20 107/57 98 2.0 12/23/16 11:00 36.9 61 19 170/57 96 12/23/16 11:00 97 18 154/45 94 Nasal Cannula 2.0 12/23/16 10:00 104 22 152/49 96 Nasal Cannula 2.0 Physical Exam: FRANCINE drainage (20 cc #1, 30 cc #2 serous), nasogastric drainage ( 350), urine output (600) Abdomen: soft, + distended (slightly), + pertinent finding (colostomy pink, mostly liquid output) Incision(s): intact (dressing) Laboratory Results: Results Past 24 Hours Test 12/23/16 18:02 12/24/16 04:47 Range/Units White Blood Count 14.27 13.66 4.8-10.8 K/uL Red Blood Count 3.46 3.36 4.2-5.4 M/uL Hemoglobin 10.0 9.7 12.0-16.0 g/dL Hematocrit 28.8 28.1 37-47 % Mean Corpuscular Volume 83.2 83.6 80-100 fL Mean Corpuscular Hemoglobin 28.9 28.9 25-34 pg Mean Corpuscular Hemoglobin Concent 34.7 34.5 32-36 g/dl RDW Standard Deviation 45.9 47.1 36.4-46.3 fL RDW Coefficient of Variation 14.9 15.2 11.5-14.5 % Platelet Count 246 258 130-400 K/uL Mean Platelet Volume 9.6 9.4 7.4-10.4 fL Nucleated RBC Absolute Count (auto) 0.02 0.02 0-0 K/uL Nucleated Red Blood Cells % 0.1 0.2 % Neutrophils (%) (Auto) 84.1 % Lymphocytes (%) (Auto) 7.7 % Monocytes (%) (Auto) 5.9 % Eosinophils (%) (Auto) 0.1 % Basophils (%) (Auto) 1.0 % Neutrophils # (Auto) 11.49 1.4-6.5 K/uL Lymphocytes # (Auto) 1.05 1.2-3.4 K/uL Monocytes # (Auto) 0.80 0.11-0.59 K/uL Eosinophils # (Auto) 0.02 0-0.5 K/uL Basophils # (Auto) 0.13 0-0.2 K/uL Immature Granulocyte % (Auto) 1.2 % Immature Granulocyte # (Auto) 0.17 0.00-0.02 K/uL Toxic Granulation 1+ Sodium Level 139 136-145 mmol/L Potassium Level 3.9 3.5-5.1 mmol/L Chloride Level 106 98-107 mmol/L Carbon Dioxide Level 27 21-32 mmol/L Anion Gap 6.0 3-11 mmol/L Blood Urea Nitrogen 41 7-18 mg/dl Creatinine 0.83 0.60-1.20 mg/dl Est Creatinine Clear Calc Drug Dose 48.7 ml/min Estimated GFR () 75.1 Estimated GFR (Non- 64.8 BUN/Creatinine Ratio 48.9 10-20 Random Glucose 123 70-99 mg/dl Lactic Acid Level 1.2 0.4-2.0 mmol/L Calcium Level 6.7 8.5-10.1 mg/dl Phosphorus Level 2.4 2.5-4.9 mg/dl Magnesium Level 2.2 1.8-2.4 mg/dl Total Bilirubin 0.3 0.2-1 mg/dl Direct Bilirubin 0.2 0-0.2 mg/dl Aspartate Amino Transf (AST/SGOT) 21 15-37 U/L Alanine Aminotransferase (ALT/SGPT) 17 12-78 U/L Alkaline Phosphatase 68 45-117 U/L Total Protein 4.2 6.4-8.2 gm/dl Albumin 0.9 3.4-5.0 gm/dl Assessment & Plan 12/24/16 see below. pt continues to slowly improve now. FRANCINE's serous. +stool in colostomy. appreciate ICU input. increase activity. can d/c ngt and start clears soon hopefully transfer from ICU tomorrow. transverse colectomy colostomy/mucus fistula for anastomotic leak on TPN, Zosyn moderate NG output although some returning bowel function Anemia H&H stable after transfusion GABRIEL creatine back to baseline this AM
[2016-12-24] MEDS ORDERED: KETAMINE HCL INJ 50 MG/ML 10 ML VIAL IV ONE (10:45)
[2016-12-24] MEDS ORDERED: HYDROCORTISONE 1% OINT 30 GM TUBE EXT PRN (10:45)
[2016-12-24] MEDS: NORMOSOL R 1,000 ML IV SCH (11:14)
[2016-12-24] MEDS ORDERED: KETAMINE HCL IV SCH (12:00)
[2016-12-24] MEDS: PANTOprazole INJ 40 MG in SYRINGE 0 ML IV SCH (12:17)
--- NOTE | 2016-12-24 14:03 | Critical Care Progress Note ---
Critical Care Progress Note Date of Service Dec 24, 2016. ICU Day ICU Day Number: [address] Frost Smita Engle felt ok today. Had significant amounts of pain overnight, mainly in abdomen but occasionally in buttocks area. She reported discomfort from her NG tube. Objective GENERAL: Awake, alert, no acute distress. HENT: Normocephalic, atraumatic. Oropharynx unremarkable. NG tube present. EYES: Normal conjunctiva. Sclera non-icteric. NECK: Supple. No nuchal rigidity. FROM. No JVD. RESPIRATORY: Clear to auscultation. CARDIAC: Regular rate, normal rhythm. Extremities warm and well perfused. Pulses equal. ABDOMEN: Soft, non-distended. No tenderness to palpation. Dressings over midline abdominal incision. Colostomy with about 50cc dark liquid in bag. FRANCINE drain draining serous material. MUSCULOSKELETAL: Chest examination reveals no tenderness. The back is symmetrical on inspection without obvious abnormality. There is no CVA tenderness to palpation. No joint edema. LOWER EXTREMITIES: Calves are equal size bilaterally and non-tender. No edema. No discoloration. NEURO: Normal sensorium. No sensory or motor deficits noted. SKIN: No rash or jaundice noted. Assessment & Plan 86 yo F initially admitted 12/14 for a transverse colectomy, developed sepsis and is p/o day 2 for repeat laparotomy with colostomy formation, anastomosis take down and abdominal washout. Neuro: Has been using dilaudid 0.1mg q1-2hours, which takes pain from 7 to 4. - Will provide a dose of Ketamine 5mg IV today Resp: Remains on 2L NC Last CXR 12/18/16: 1. Mild pulmonary vascular congestion/fluid overload 2. Interval placement of a nasogastric tube and right-sided PICC catheter 3. Decreasing free intraperitoneal air 4. Left lower lobe airspace opacities, possibly representing a pneumonia CVS: CV drips: None EKG: Last on 12/20/16, Sinus tachycardia, QTc 418 Fluids/Renal: Cumulative 7000mL + fluid balance Cr 0.83, from 1.3 yesterday. Baseline 0.6. 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 Rosario was resident physician during care of patient. I separately evaluated patient and did history and exam. I discussed the case with the resident and generally agree with the findings and plan. Discontinued TPN secondary to a gram-negative sepsis, applied hydrocortisone cream to lichen planus and irritated areas, 5 mg ketamine IV for additional pain control, Normosol at 50 mLs. I have personally spent 45 minutes of critical care time in the direct management of this patient. This is a life/limb threatening event. This includes time spent evaluating patient, direct bedside care, chart review, placing orders, interpretation of diagnostic studies, discussion with consultants, patient, and family members, as well as other required patient management activities. This time is exclusive of all separately billable procedures, and teaching time and separate from and in addition to any other critical care service time. 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 12/21 - ex-lap with washout for anastomotic leak Data Medications: Current Inpatient Medications Medications (Trade) Dose Ordered Sig/Aleksander Route Start Time Stop Time Status Last Admin Dose Admin Ondansetron HCl (Zofran Inj) 4 mg Q6H PRN IV 12/13/16 15:00 01/12/17 14:59 12/20/16 07:28 4 MG Albuterol (Ventolin Hfa Inhaler) 2 puffs Q4 PRN INH 12/13/16 15:00 01/12/17 14:59 Amlodipine Besylate (Norvasc Tab) 10 mg QAM PO 12/14/16 09:00 01/13/17 08:59 Future Hold 12/20/16 09:10 10 MG Fluticasone Propionate (Flonase Nasal [place]) 2 sprays DAILY PRN LARRY 12/13/16 15:00 01/12/17 14:59 Loratadine (Claritin Tab) 10 mg DAILY PRN PO 12/13/16 15:00 01/12/17 14:59 Pentosan Polysulfate Sodium (Elmiron) 100 mg BID PO 12/13/16 21:00 01/12/17 20:59 12/24/16 08:01 100 MG Metoclopramide HCl (Reglan Inj) 10 mg Q6H PRN IV. 12/13/16 19:15 01/12/17 19:14 12/20/16 05:36 10 MG Fluticasone/ Vilanterol (Breo Ellipta 200-25 Mcg/Inh) 1 inha DAILY IN 12/14/16 09:00 01/13/17 08:59 12/24/16 08:00 1 INHA Ketotifen Fumarate 1 drops 1 drops Q12 OP 12/14/16 09:00 01/13/17 08:59 12/24/16 08:00 1 DROPS Pantoprazole Sodium/Syringe (Protonix Inj/ Syringe) 10 ml @ 5 mls/min DAILY@11 IV 12/15/16 11:00 01/14/17 10:59 12/24/16 12:17 5 MLS/MIN Tramadol HCl 50 mg 50 mg Q4H PRN PO 12/16/16 08:15 01/15/17 08:14 12/17/16 00:52 50 MG Acetaminophen/ Empty Bag (Ofirmev IV/ Empty Iv Bag 100ml) 65 ml @ 260 mls/hr Q6H PRN IV 12/18/16 13:15 01/17/17 13:14 12/24/16 02:54 260 MLS/HR Hard Fat/ Phenylephrine (Anusol Supp) 1 ea BID PRN MD 12/19/16 09:00 01/18/17 08:59 12/19/16 21:04 1 EA Metronidazole HCl (Metrogel Vag Gel) 2 appln DAILY PV 12/20/16 09:00 12/30/16 08:59 12/24/16 08:01 2 APPLN Menthol/Zinc Oxide (Calmoseptine Oint) 1 appln DAILY EXT 12/20/16 09:00 01/19/17 08:59 12/24/16 08:00 1 APPLN Clobetasol Propionate (Clobetasol Propionate Oint) 1 appln BID EXT 12/19/16 21:00 01/18/17 20:59 12/24/16 08:00 1 APPLN Miscellaneous Information 1 ea 1 ea UD PRN N/A 12/20/16 09:58 12/24/16 15:59 Dextrose (D10w) 1,000 ml @ 0 mls/hr Q0M PRN IV 12/20/16 13:10 12/24/16 15:59 Heparin Sodium (Porcine) (Heparin 10 Unit/ ml 5 ml Flush) 1 ml PRN PRN FLUSH 12/20/16 13:15 01/19/17 13:14 Piperacillin Sod/ Tazobactam Sod (Consult) 1 ea UD PRN N/A 12/20/16 15:45 01/19/17 15:44 Hydromorphone HCl (Dilaudid Inj) 0.5 mg Q1HWA PRN IV 12/21/16 18:30 01/04/17 18:29 12/24/16 08:53 0.5 MG Enoxaparin Sodium 30 mg 30 mg QAM SQ 12/22/16 09:00 01/21/17 08:59 12/24/16 07:59 30 MG Nutrition (Parenteral) 0 ml @ 0 mls/hr TODAY@1600 IV 12/23/16 16:00 12/24/16 15:59 12/23/16 16:32 0 MLS/HR Piperacillin Sod/ Tazobactam Sod/ Dextrose (Zosyn Iv/D5 100ml) 115 ml @ 28.75 mls/ hr Q8H IV 12/23/16 20:00 12/31/16 23:59 12/24/16 12:17 28.75 MLS/HR Hydrocortisone 1 appln 1 appln TID PRN EXT 12/24/16 10:45 01/23/17 10:44 Parenteral Electrolyte Solution 1,000 ml @ 50 mls/hr Q20H IV 12/24/16 10:45 01/23/17 10:44 12/24/16 11:14 50 MLS/HR Ketamine HCl/ Syringe (Ketalar Steri-Vial Inj/ Syringe) 5 ml @ 1 mls/min ONE@1200 IV 12/24/16 12:00 12/24/16 18:00 12/24/16 12:16 1 MLS/MIN I & O: 24-Hour Column 12/24/16 08:00 Intake Total 3774 ml Output Total 3210 ml Balance 564 ml Vital Signs: Date Time Temp Pulse Resp B/P Pulse Ox O2 Delivery O2 Flow Rate FiO2 12/24/16 12:41 103 98 12/24/16 10:00 103 28 127/55 98 Nasal Cannula 2.0 12/24/16 08:00 96 Nasal Cannula 2.0 12/24/16 08:00 37.0 95 22 155/75 96 Room Air 2.0 12/24/16 06:00 95 21 155/75 94 Nasal Cannula 2.0 12/24/16 04:00 95 Nasal Cannula 2.0 12/24/16 04:00 36.7 62 21 128/61 93 Nasal Cannula 2.0 12/24/16 02:00 68 19 131/56 93 Nasal Cannula 2.0 12/24/16 00:00 36.8 82 21 141/69 94 Nasal Cannula 2.0 12/23/16 23:59 94 Nasal Cannula 2.0 12/23/16 22:00 82 18 165/70 94 Nasal Cannula 2.0 12/23/16 20:00 95 Nasal Cannula 2.0 12/23/16 20:00 36.8 95 24 170/74 94 Nasal Cannula 2.0 12/23/16 18:00 101 18 166/78 94 Nasal Cannula 2.0 12/23/16 16:00 95 Nasal Cannula 2.0 12/23/16 16:00 106 30 174/53 95 Nasal Cannula 2.0 12/23/16 14:00 37.0 97 22 177/54 97 Nasal Cannula 2.0 Laboratory Results: Last 24 Hours Test 12/23/16 18:02 12/24/16 04:47 White Blood Count 14.27 K/uL 13.66 K/uL Red Blood Count 3.46 M/uL 3.36 M/uL Hemoglobin 10.0 g/dL 9.7 g/dL Hematocrit 28.8 % 28.1 % Mean Corpuscular Volume 83.2 fL 83.6 fL Mean Corpuscular Hemoglobin 28.9 pg 28.9 pg Mean Corpuscular Hemoglobin Concent 34.7 g/dl 34.5 g/dl RDW Standard Deviation 45.9 fL 47.1 fL RDW Coefficient of Variation 14.9 % 15.2 % Platelet Count 246 K/uL 258 K/uL Mean Platelet Volume 9.6 fL 9.4 fL Nucleated RBC Absolute Count (auto) 0.02 K/uL 0.02 K/uL Nucleated Red Blood Cells % 0.1 % 0.2 % Neutrophils (%) (Auto) 84.1 % Lymphocytes (%) (Auto) 7.7 % Monocytes (%) (Auto) 5.9 % Eosinophils (%) (Auto) 0.1 % Basophils (%) (Auto) 1.0 % Neutrophils # (Auto) 11.49 K/uL Lymphocytes # (Auto) 1.05 K/uL Monocytes # (Auto) 0.80 K/uL Eosinophils # (Auto) 0.02 K/uL Basophils # (Auto) 0.13 K/uL Immature Granulocyte % (Auto) 1.2 % Immature Granulocyte # (Auto) 0.17 K/uL Toxic Granulation 1+ Sodium Level 139 mmol/L Potassium Level 3.9 mmol/L Chloride Level 106 mmol/L Carbon Dioxide Level 27 mmol/L Anion Gap 6.0 mmol/L Blood Urea Nitrogen 41 mg/dl Creatinine 0.83 mg/dl Est Creatinine Clear Calc Drug Dose 48.7 ml/min Estimated GFR () 75.1 Estimated GFR (Non- 64.8 BUN/Creatinine Ratio 48.9 Random Glucose 123 mg/dl Lactic Acid Level 1.2 mmol/L Calcium Level 6.7 mg/dl Phosphorus Level 2.4 mg/dl Magnesium Level 2.2 mg/dl Total Bilirubin 0.3 mg/dl Direct Bilirubin 0.2 mg/dl Aspartate Amino Transf (AST/SGOT) 21 U/L Alanine Aminotransferase (ALT/SGPT) 17 U/L Alkaline Phosphatase 68 U/L Total Protein 4.2 gm/dl Albumin 0.9 gm/dl Resident Tracking Resident Involvement: Resident Care Provided Care Provided: Adult Hospital Medicine (ICU)
--- NOTE | 2016-12-24 15:42 | Progress Note ---
Subjective Date of Service: Dec 24, 2016. Subjective Pt evaluation today including: conversation w/ patient, conversation w/ family , physical exam, chart review, lab review, review of studies, conversation w/ construction safety consultant, review of inpatient medication list Voiding: hilario catheter in place Feeling really weak, on NG tube suctioning, more weak voice, Problem List Medical Problems: (1) Urinary tract infection Status: Acute (2) Vaginal burning Status: Acute Review of Systems Constitutional: + fatigue, + weakness Eyes: No diplopia, No discharge, No eye pain, No problem reported, No redness, No see HPI, No worsening of vision ENT: No dental problems, No hearing loss, No nasal symptoms, No problem reported, No see HPI, No sore throat, No tinnitus, No trouble swallowing, No unusual epistaxis Respiratory: No cough, No dyspnea at rest, No dyspnea on exertion, No hemoptysis, No problem reported, No see HPI, No shortness of breath, No sputum, No wheezing Cardiac: No PND, No chest pain, No claudication, No edema, No orthopnea, No palpitations, No problem reported, No see HPI Abdomen: + problem reported (on NG suctioning), No GI bleeding, No constipation, No diarrhea, No nausea, No pain, No see HPI, No vomiting Female : No abnormal vaginal bleeding, No dysuria, No hematuria, No incontinence, No problem reported, No see HPI, No urinary frequency, No vaginal discharge Neurologic: No balance problems, No memory loss, No numbness/tingling, No paralysis, No problem reported, No see HPI, No vertigo, No weakness Psychiatric: No anhedonism, No anxiety, No depression symptoms, No insomnia, No problem reported, No see HPI, No substance abuse Heme: No abnormal bleeding/bruising, No clotting problems, No night sweats, No problem reported, No see HPI, No swollen lymph nodes Endo: No excessive thirst, No excessive urination, No fatigue, No problem reported, No see HPI Skin: No bleeding, No color change, No itch, No new/changing skin lesions, No problem reported, No rash, No see HPI Objective Vital Signs Date Time Temp Pulse Resp B/P Pulse Ox O2 Delivery O2 Flow Rate FiO2 12/24/16 14:00 105 20 148/70 96 Nasal Cannula 2.0 12/24/16 12:41 103 98 12/24/16 12:00 95 Nasal Cannula 2.0 12/24/16 12:00 109 30 142/55 97 Room Air 2.0 12/24/16 10:00 103 28 127/55 98 Nasal Cannula 2.0 12/24/16 08:00 96 Nasal Cannula 2.0 12/24/16 08:00 37.0 95 22 155/75 96 Room Air 2.0 12/24/16 06:00 95 21 155/75 94 Nasal Cannula 2.0 12/24/16 04:00 95 Nasal Cannula 2.0 12/24/16 04:00 36.7 62 21 128/61 93 Nasal Cannula 2.0 12/24/16 02:00 68 19 131/56 93 Nasal Cannula 2.0 12/24/16 00:00 36.8 82 21 141/69 94 Nasal Cannula 2.0 12/23/16 23:59 94 Nasal Cannula 2.0 12/23/16 22:00 82 18 165/70 94 Nasal Cannula 2.0 12/23/16 20:00 95 Nasal Cannula 2.0 12/23/16 20:00 36.8 95 24 170/74 94 Nasal Cannula 2.0 12/23/16 18:00 101 18 166/78 94 Nasal Cannula 2.0 12/23/16 16:00 95 Nasal Cannula 2.0 12/23/16 16:00 106 30 174/53 95 Nasal Cannula 2.0 Physical Exam General Appearance: WD/WN, no apparent distress, + thin, + pertinent finding ( very frail and chronically ill-looking,) Eyes: normal inspection, PERRL, EOMI, sclerae normal ENT: normal ENT inspection, hearing grossly normal, pharynx normal Neck: supple, no adenopathy, thyroid normal, no JVD, no carotid bruits, trachea midline Respiratory/Chest: chest non-tender, normal breath sounds, no respiratory distress, no accessory muscle use, + decreased breath sounds Cardiovascular: regular rate, rhythm, no edema, no gallop, no JVD, no murmur Abdomen: normal bowel sounds, non tender, soft, no organomegaly, no pulsatile mass Extremities: normal range of motion, non-tender, normal inspection, no pedal edema, no calf tenderness, normal capillary refill, pelvis stable Neurologic/Psychiatric: separations scientist II-XII nml as tested, no motor/sensory deficits, alert, normal mood/affect, oriented x 3 Skin: normal color, warm/dry, no rash Lymphatic: no adenopathy Laboratory Results Last 24 Hours Test 12/23/16 18:02 12/24/16 04:47 White Blood Count 14.27 K/uL 13.66 K/uL Red Blood Count 3.46 M/uL 3.36 M/uL Hemoglobin 10.0 g/dL 9.7 g/dL Hematocrit 28.8 % 28.1 % Mean Corpuscular Volume 83.2 fL 83.6 fL Mean Corpuscular Hemoglobin 28.9 pg 28.9 pg Mean Corpuscular Hemoglobin Concent 34.7 g/dl 34.5 g/dl RDW Standard Deviation 45.9 fL 47.1 fL RDW Coefficient of Variation 14.9 % 15.2 % Platelet Count 246 K/uL 258 K/uL Mean Platelet Volume 9.6 fL 9.4 fL Nucleated RBC Absolute Count (auto) 0.02 K/uL 0.02 K/uL Nucleated Red Blood Cells % 0.1 % 0.2 % Neutrophils (%) (Auto) 84.1 % Lymphocytes (%) (Auto) 7.7 % Monocytes (%) (Auto) 5.9 % Eosinophils (%) (Auto) 0.1 % Basophils (%) (Auto) 1.0 % Neutrophils # (Auto) 11.49 K/uL Lymphocytes # (Auto) 1.05 K/uL Monocytes # (Auto) 0.80 K/uL Eosinophils # (Auto) 0.02 K/uL Basophils # (Auto) 0.13 K/uL Immature Granulocyte % (Auto) 1.2 % Immature Granulocyte # (Auto) 0.17 K/uL Toxic Granulation 1+ Sodium Level 139 mmol/L Potassium Level 3.9 mmol/L Chloride Level 106 mmol/L Carbon Dioxide Level 27 mmol/L Anion Gap 6.0 mmol/L Blood Urea Nitrogen 41 mg/dl Creatinine 0.83 mg/dl Est Creatinine Clear Calc Drug Dose 48.7 ml/min Estimated GFR () 75.1 Estimated GFR (Non- 64.8 BUN/Creatinine Ratio 48.9 Random Glucose 123 mg/dl Lactic Acid Level 1.2 mmol/L Calcium Level 6.7 mg/dl Phosphorus Level 2.4 mg/dl Magnesium Level 2.2 mg/dl Total Bilirubin 0.3 mg/dl Direct Bilirubin 0.2 mg/dl Aspartate Amino Transf (AST/SGOT) 21 U/L Alanine Aminotransferase (ALT/SGPT) 17 U/L Alkaline Phosphatase 68 U/L Total Protein 4.2 gm/dl Albumin 0.9 gm/dl Assessment and Plan 86 yo female with history of HTN, GERD, hyperlipidemia and allergies admitted on 12/14/2016 2 surgery service, hospitalist consulted for medical management s/p transverse colectomy, liver biopsy, POD #11 - s/p takedown anastomosis, end colostomy, mucous fistula, abdominal washout 4/7 , POD #3 still with abdominal pain today requiring Dilaudid, end colostomy now in place, 50cc in the bag still hypoactive bowel sounds, borderline absent On NGT with significant bilious drainage management per surgery deep wound culture growing E coli, Serratia, Strep... change Zosyn to Ertapenem today - Acute blood loss anemia: secondary to surgery will transfuse 2 units, follow up repeat H/H, BP stable, hemoglobin 9.7 today no obvious signs of bleeding - Sepsis due to intra-abdominal bowel leak: blood cultures growing Serratia, wound culture growing E coli and Strep and Serratia change Zosyn to Ertapenem, afebrile, WBC normal BP preserved, no signs of shock, continue stable, infectious disease on the case - GABRIEL: likely prerenal and caused by poor oral intake for days after surgery responding well to IV fluids, totally resolved Nutrition support, on TPN per primary team Continued [facility] stay due to: multiple IV medications needed Discharge planning: uncertain
--- NOTE | 2016-12-24 19:42 | Infectious Disease Progress Nt ---
Progress Note Date of Service Dec 24, 2016. Subjective Pt evaluation today including: conversation w/ patient, physical exam, chart review, lab review, review of studies, conversation w/ java consultant, review of inpatient medication list Patient remains weak and debilitated. CT scan of abdomen, read by me, shows evidence of pneumoperitoneum, possible early abscess formation. Cultures from peritoneal fluid growing multiple organisms, including Serratia marcescens, E coli, Enterococcus, and anaerobes. Tolerating Zosyn thus far without apparent difficulty. All Other Systems: Reviewed and Negative Medications Current Inpatient Medications Medications (Trade) Dose Ordered Sig/Aleksander Route Start Time Stop Time Status Last Admin Dose Admin Ondansetron HCl (Zofran Inj) 4 mg Q6H PRN IV 12/13/16 15:00 01/12/17 14:59 12/20/16 07:28 4 MG Albuterol (Ventolin Hfa Inhaler) 2 puffs Q4 PRN INH 12/13/16 15:00 01/12/17 14:59 Amlodipine Besylate (Norvasc Tab) 10 mg QAM PO 12/14/16 09:00 01/13/17 08:59 Future Hold 12/20/16 09:10 10 MG Fluticasone Propionate (Flonase Nasal [place]) 2 sprays DAILY PRN LARRY 12/13/16 15:00 01/12/17 14:59 Loratadine (Claritin Tab) 10 mg DAILY PRN PO 12/13/16 15:00 01/12/17 14:59 Pentosan Polysulfate Sodium (Elmiron) 100 mg BID PO 12/13/16 21:00 01/12/17 20:59 12/24/16 08:01 100 MG Metoclopramide HCl (Reglan Inj) 10 mg Q6H PRN IV. 12/13/16 19:15 01/12/17 19:14 12/20/16 05:36 10 MG Fluticasone/ Vilanterol (Breo Ellipta 200-25 Mcg/Inh) 1 inha DAILY IN 12/14/16 09:00 01/13/17 08:59 12/24/16 08:00 1 INHA Ketotifen Fumarate 1 drops 1 drops Q12 OP 12/14/16 09:00 01/13/17 08:59 12/24/16 08:00 1 DROPS Pantoprazole Sodium/Syringe (Protonix Inj/ Syringe) 10 ml @ 5 mls/min DAILY@11 IV 12/15/16 11:00 01/14/17 10:59 12/24/16 12:17 5 MLS/MIN Tramadol HCl 50 mg 50 mg Q4H PRN PO 12/16/16 08:15 01/15/17 08:14 12/17/16 00:52 50 MG Acetaminophen/ Empty Bag (Ofirmev IV/ Empty Iv Bag 100ml) 65 ml @ 260 mls/hr Q6H PRN IV 12/18/16 13:15 01/17/17 13:14 12/24/16 02:54 260 MLS/HR Hard Fat/ Phenylephrine (Anusol Supp) 1 ea BID PRN [place] 12/19/16 09:00 01/18/17 08:59 12/19/16 21:04 1 EA Metronidazole HCl (Metrogel Vag Gel) 2 appln DAILY PV 12/20/16 09:00 12/30/16 08:59 12/24/16 08:01 2 APPLN Menthol/Zinc Oxide (Calmoseptine Oint) 1 appln DAILY EXT 12/20/16 09:00 01/19/17 08:59 12/24/16 08:00 1 APPLN Clobetasol Propionate (Clobetasol Propionate Oint) 1 appln BID EXT 12/19/16 21:00 01/18/17 20:59 12/24/16 08:00 1 APPLN Heparin Sodium (Porcine) (Heparin 10 Unit/ ml 5 ml Flush) 1 ml PRN PRN FLUSH 12/20/16 13:15 01/19/17 13:14 Piperacillin Sod/ Tazobactam Sod (Consult) 1 ea UD PRN N/A 12/20/16 15:45 01/19/17 15:44 Hydromorphone HCl (Dilaudid Inj) 0.5 mg Q1HWA PRN IV 12/21/16 18:30 01/04/17 18:29 12/24/16 17:58 0.5 MG Enoxaparin Sodium 30 mg 30 mg QAM SQ 12/22/16 09:00 01/21/17 08:59 12/24/16 07:59 30 MG Piperacillin Sod/ Tazobactam Sod/ Dextrose (Zosyn Iv/D5 100ml) 115 ml @ 28.75 mls/ hr Q8H IV 12/23/16 20:00 12/31/16 23:59 12/24/16 12:17 28.75 MLS/HR Hydrocortisone 1 appln 1 appln TID PRN EXT 12/24/16 10:45 01/23/17 10:44 Parenteral Electrolyte Solution (Normosol R) 1,000 ml @ 50 mls/hr Q20H IV 12/24/16 10:45 01/23/17 10:44 12/24/16 11:14 50 MLS/HR Objective Vital Signs Date Time Temp Pulse Resp B/P Pulse Ox O2 Delivery O2 Flow Rate FiO2 12/24/16 18:00 108 18 174/80 96 Nasal Cannula 2.0 12/24/16 16:00 102 18 143/59 96 2.0 12/24/16 16:00 Nasal Cannula 2.0 12/24/16 14:00 105 20 148/70 96 Nasal Cannula 2.0 12/24/16 12:41 103 98 12/24/16 12:00 95 Nasal Cannula 2.0 12/24/16 12:00 109 30 142/55 97 Room Air 2.0 12/24/16 10:00 103 28 127/55 98 Nasal Cannula 2.0 12/24/16 08:00 96 Nasal Cannula 2.0 12/24/16 08:00 37.0 95 22 155/75 96 Room Air 2.0 12/24/16 06:00 95 21 155/75 94 Nasal Cannula 2.0 12/24/16 04:00 95 Nasal Cannula 2.0 12/24/16 04:00 36.7 62 21 128/61 93 Nasal Cannula 2.0 12/24/16 02:00 68 19 131/56 93 Nasal Cannula 2.0 12/24/16 00:00 36.8 82 21 141/69 94 Nasal Cannula 2.0 12/23/16 23:59 94 Nasal Cannula 2.0 12/23/16 22:00 82 18 165/70 94 Nasal Cannula 2.0 12/23/16 20:00 95 Nasal Cannula 2.0 12/23/16 20:00 36.8 95 24 170/74 94 Nasal Cannula 2.0 Physical Exam General Appearance: no apparent distress, + pertinent finding ( chronically ill -appearing) Eyes: normal inspection, EOMI, sclerae normal ENT: normal ENT inspection, pharynx normal Neck: supple, no adenopathy, trachea midline Respiratory/Chest: chest non-tender, lungs clear, normal breath sounds, no respiratory distress Cardiovascular: regular rate, rhythm, no gallop, no murmur Abdomen: soft, no organomegaly, + distended, + tenderness Extremities: non-tender, no calf tenderness Neurologic/Psychiatric: alert, oriented x 3 Skin: normal color, warm/dry, no rash Lymphatic: no adenopathy Laboratory Results RUN DATE: 12/24/16 [facility] LAB PAGE 1 RUN TIME: 1442 Specimen Inquiry PATIENT: PATY REYNOSO [facility] : [id number] AGE/SX: 86/F ROOM: E107 REG : 12/13/[address]: Khurram Rodriguez MD, PhD : 1930 BED: 1 DIS : STATUS: ADM IN TLOC: SPEC #: [id number] CHLOE: 12/21/16 STATUS: RES REQ #: [id number] RECD: 12/21/16 [facility] [address]: Andrey Lomax D.O. SOURCE: DRAIN-DEEP ENTR: 12/21/[address] [facility] [address]: Norberto Basurto M.D. [facility]: Gerald Bernard M.D. Hester, Christopher E., M.D. ORDERED: AER/AURORA CULTSMR Procedure Result Verified Site GRAM STAIN Final 12/21/16-165 RESULT FEW WBCs SEEN MODERATE GRAM POSITIVE BACILLI RARE YEAST Phoned results to CALEB ALFARO/Dontae on 12/21/16 at 1650 by Ken Avila. Results were verbalized back to AISSATOUMT. OR AER/AURORA CULT Preliminary 12/24/16-1442 Organism 1 SERRATIA MARCESCENS QUANITY FEW SENS SENSITIVITY TO FOLLOW Organism 2 ESCHERICHIA COLI QUANITY FEW SENS SENSITIVITY TO FOLLOW Organism 3 ENTEROCOCCUS FAECALIS QUANITY FEW SENS SENSITIVITY TO FOLLOW Organism 4 PROBABLE AURORA GRAM NEG BACILLI QUANITY MODERATE SENS SENSITIVITIES DEPENDENT ON FURTHER IDENTIFICATION CONTINUED ON NEXT PAGE RUN DATE: 12/24/16 [facility] LAB PAGE 2 RUN TIME: 144 Specimen Inquiry SPEC: [id number] PATIENT: PATY REYNOSO [id number] ( Continued) Procedure Result Verified Site OR AER/AURORA CULT Preliminary (continued) 12/24/16-1442 [facility] COLI E FAECALIS M.I.C. RX M.I.C. RX M.I.C. RX --------- ------ --------- ------ --------- ------ TRIMET/SULFA <=2/38 S <=2/38 S AMPICILLIN >16 R <=2 S AMPICILLIN/SUL 16/8 I CEFAZOLIN <=8 S CEFOTAXIME <=2 S <=2 S CEFTRIAXONE <=1 S <=1 S CEFEPIME <=4 S <=4 S CEFUROXIME <=4 S IMIPENEM <=1 S <=1 S GENT SYNERGY <=500 S VANCOMYCIN 2 S PENICILLIN 2 S GENTAMICIN <=4 S <=4 S TOBRAMYCIN <=4 S <=4 S AMIKACIN <=16 S <=16 S CIPROFLOXACIN <=1 S <=1 S LEVOFLOXACIN <=2 S <=2 S ERTAPENEM <=1 S <=1 S DAPTOMYCIN <=0.5 S PIP/TAZO <=16 S <=16 S STREP SYNERGY <=1000 S ENTEROCOCCUS FAECALIS: POSITIVE COMBO 33 Streptomycin Synergy Screen S Gentamicin Synergy Screen S 1. SERRATIA MARCESCENS Target Route Dose RX AB Cost M.I.C. IQ ------ ----- ------ -- ------ -------- - ------ TRIMET/SULFA S <=2/38 CEFOTAXIME S <=2 CEFTRIAXONE S <=1 CEFEPIME S <=4 IMIPENEM S <=1 GENTAMICIN S <=4 TOBRAMYCIN S <=4 AMIKACIN S <=16 CIPROFLOXACIN S <=1 LEVOFLOXACIN S <=2 ERTAPENEM S <=1 PIP/TAZO S <=16 CONTINUED ON NEXT PAGE RUN DATE: 12/24/16 [facility] LAB PAGE 3 RUN TIME: 144 Specimen Inquiry SPEC: [id number] PATIENT: PATY REYNOSO [id number] ( Continued) Procedure Result Verified Site OR AER/AURORA JENKINS Preliminary (continued) 12/24/16-1442 2. ESCHERICHIA COLI Target Route Dose RX AB Cost M.I.C. IQ ------ ----- ------ -- ------ -------- - ------ TRIMET/SULFA S <=/38 AMPICILLIN R >16 AMPICILLIN/SUL I 16/8 CEFAZOLIN S <=8 CEFOTAXIME S <=2 CEFTRIAXONE S <=1 CEFEPIME S <=4 CEFUROXIME S <=4 IMIPENEM S <=1 GENTAMICIN S <=4 TOBRAMYCIN S <=4 AMIKACIN S <=16 CIPROFLOXACIN S <=1 LEVOFLOXACIN S <=2 ERTAPENEM S <=1 PIP/TAZO S <=16 3. ENTEROCOCCUS FAECALIS Target Route Dose RX AB Cost M.I.C. IQ ------ ----- ------ -- ------ -------- - ------ AMPICILLIN S <=2 GENT SYNERGY S <=500 VANCOMYCIN S 2 PENICILLIN S 2 DAPTOMYCIN S <=0.5 STREP SYNERGY S <=1000 Streptomycin Synergy Screen S Gentamicin Synergy Screen S S = SENSITIVE I = INTERMEDIATE R = RESISTANT END OF REPORT Last 24 Hours Test 12/24/16 04:47 White Blood Count 13.66 K/uL Red Blood Count 3.36 M/uL Hemoglobin 9.7 g/dL Hematocrit 28.1 % Mean Corpuscular Volume 83.6 fL Mean Corpuscular Hemoglobin 28.9 pg Mean Corpuscular Hemoglobin Concent 34.5 g/dl Platelet Count 258 K/uL Mean Platelet Volume 9.4 fL Neutrophils (%) (Auto) 84.1 % Lymphocytes (%) (Auto) 7.7 % Monocytes (%) (Auto) 5.9 % Eosinophils (%) (Auto) 0.1 % Basophils (%) (Auto) 1.0 % Neutrophils # (Auto) 11.49 K/uL Lymphocytes # (Auto) 1.05 K/uL Monocytes # (Auto) 0.80 K/uL Eosinophils # (Auto) 0.02 K/uL Basophils # (Auto) 0.13 K/uL RDW Standard Deviation 47.1 fL RDW Coefficient of Variation 15.2 % Immature Granulocyte % (Auto) 1.2 % Immature Granulocyte # (Auto) 0.17 K/uL Nucleated RBC Absolute Count (auto) 0.02 K/uL Nucleated Red Blood Cells % 0.2 % Toxic Granulation 1+ Sodium Level 139 mmol/L Potassium Level 3.9 mmol/L Chloride Level 106 mmol/L Carbon Dioxide Level 27 mmol/L Anion Gap 6.0 mmol/L Blood Urea Nitrogen 41 mg/dl Creatinine 0.83 mg/dl Est Creatinine Clear Calc Drug Dose 48.7 ml/min Estimated GFR () 75.1 Estimated GFR (Non- 64.8 BUN/Creatinine Ratio 48.9 Random Glucose 123 mg/dl Lactic Acid Level 1.2 mmol/L Calcium Level 6.7 mg/dl Phosphorus Level 2.4 mg/dl Magnesium Level 2.2 mg/dl Total Bilirubin 0.3 mg/dl Direct Bilirubin 0.2 mg/dl Aspartate Amino Transf (AST/SGOT) 21 U/L Alanine Aminotransferase (ALT/SGPT) 17 U/L Alkaline Phosphatase 68 U/L Total Protein 4.2 gm/dl Albumin 0.9 gm/dl Patient Name: PTAY REYNOSO Unit Number: [id number] Dictated: 12/21/161231 Transcribed: 12/21/161231 ALAN Printed Date/Time: [~ rep prt dt]/[~ rep prt tm] [~ rep ct labl] - [~ rep ct ivnm] [facility] [place] [address] Dictated: 12/21/161231 Transcribed: 12/21/161231 ALAN Printed Date/Time: [~ rep prt dt]/[~ rep prt tm] [~ rep ct labl] - [~ rep ct ivnm] CT OF THE ABDOMEN AND PELVIS WITH ORAL CONTRAST CT DOSE: 723.90 mGy.cm CLINICAL HISTORY: Postoperative leukocytosis. Villous adenoma. Probable malignant liver lesion. TECHNIQUE: Axial images of the abdomen and pelvis were obtained without IV contrast. Oral contrast was administered. COMPARISON STUDY: Right upper quadrant ultrasound September 27, [address] of the abdomen and pelvis October 15, 2016. FINDINGS: Visualized portions of the lower chest demonstrate small bilateral pleural effusions with bilateral lower lobe opacities. There is moderate pneumoperitoneum. The tip of the nasogastric tube is within the proximal body of the stomach. There are findings consistent with a transverse colectomy. There are fluid and gas containing collections within the abdomen and pelvis. There may be peritoneal thickening. A 9.4 x 8.8 cm partially loculated collection within the pelvis, anterior to the rectum and posterior to the uterus is noted. There is also a left anterior abdominal collection that measures 9.6 x 2.9 cm. There are multiple mesenteric fluid collections. Diffuse infiltration is noted within the mesentery. There are several locules of gas adjacent to the spleen. Unenhanced images of liver, adrenal glands, kidneys and pancreas are normal. There is no hydronephrosis. There is no pancreatic ductal dilatation. There is sigmoid diverticulosis without evidence for acute diverticulitis. Mild small bowel dilatation is noted. IMPRESSION: 1. Postoperative findings consistent with a transverse colectomy. Moderate pneumoperitoneum. While this may postsurgical, this is greater than expected and raises the possibility of an anastomotic leak. 2. Multiple fluid and gas containing abdominal and pelvic fluid collections. These are nonspecific in the postoperative period but could reflect developing abscesses. Possible peritoneal thickening. 3. Mild small bowel dilatation without definite transition point. The findings could reflect an ileus or less likely a partial small bowel obstruction. 4. Small bilateral pleural effusions with associated bibasilar opacities which could reflect atelectasis or consolidation. Electronically signed by: Farshad Hopson M.D. 12/21/2016 12:48 PM Dictated Date/Time: 12/21/2016 12:32 PM The status of this report is Signed. Draft = Not yet reviewed or approved by Radiologist. Signed = Reviewed and approved by Radiologist. <AttendingPhy>Andrey Lomax D.O.</AttendingPhy> <FamilyPhy>Filiberto Pendleton M.D.</FamilyPhy> <PrimaryPhy>Filiberto Pendleton M.D.</ PrimaryPhy> <UnitNumber>[id number]</UnitNumber> <VisitNumber>[id number]</ VisitNumber> <PatientName>PATY REYNOSO</PatientName> <DateOfBirth>1929</DateOfBirth> <Location>[facility]</Location> <ServiceDate>12/13/16</ServiceDate > <MNE>ESINDI</MNE> <OrderingPhy>Andrey Lomax D.O.</OrderingPhy> < OrderingPhyMNE>f rep ord dr cano</OrderingPhyMNE> <DictatingPhyMNE>f rep dict dr cano</DictatingPhyMNE> <CCListMNE>f rep ct rachael</CCListMNE> <AdmittingPhyMNE>f pt admit dr cano</AdmittingPhyMNE> <AttendingPhyMNE>f pt attend dr cano</ AttendingPhyMNE> <ConsultingPhyMNE>f pt consult dr cano</ConsultingPhyMNE> <FamilyPhyMNE>f pt fam dr cano</FamilyPhyMNE> <OtherPhyMNE>f pt other dr cano</OtherPhyMNE> < PrimaryPhyMNE>f pt prim care dr cano</PrimaryPhyMNE> <ReferringPhyMNE>f pt referring dr cano</ReferringPhyMNE> Assessment and Plan Gram-negative sepsis from intra-abdominal infection with abscess formation from anastomotic leak following colectomy. blood cultures are positive for Serratia, operative cultures growing multiple organisms including E coli, Serratia, Enterococcus, and anaerobes. Patient should be continued on IV Zosyn. Length of IV antibiotics will be determined by clinical response. Will discuss with all involved.
[2016-12-25] VITALS (17 sets, daily range): BP systolic 140–173; BP diastolic 55–87; PULSE 87–116; TEMP 36.6–37.1; O2SAT 91–97
[2016-12-25] MEDS: HYDROmorphone INJ 0.5 MG/0.5 ML SYR IV PRN ×3 (01:40→08:02)
[2016-12-25] MEDS: PIPERACILL/TAZOBAC IV 3.375 GM in DEXTROSE 5% 100ML 100 ML IV SCH ×3 (04:06→19:39)
[2016-12-25 05:29] LABS: BASO % 0.1 %; BASO ABS # 0.02 K/uL (0-0.2); COMPLETE YES; EOS % 0.3 %; HEMATOCRIT 31.8 % (37-47); IG% 1.1 %; LYMPH % 6.6 %; LYMPH ABS # 1.16 K/uL (1.2-3.4); MEAN CELL VOLUME 86.6 fL (80-100); MEAN CORPUSCULAR HEMOGLOBIN 29.7 pg (25-34); MEAN CORPUSCULAR HGB CONC 34.3 g/dl (32-36); MONO % 3.5 %; NEUT % 88.4 %; PLATELET COUNT 348 K/uL (130-400); RED BLOOD COUNT 3.67 M/uL (4.2-5.4); WHITE BLOOD COUNT 17.56 K/uL (4.8-10.8)
[2016-12-25 05:50] LABS: BUN/CREATININE RATIO 42.5 (10-20); CALCIUM 7.4 mg/dl (8.5-10.1); CREATININE 0.66 mg/dl (0.60-1.20); MAGNESIUM 1.9 mg/dl (1.8-2.4); POTASSIUM 4.3 mmol/L (3.5-5.1)
[2016-12-25 05:51] LABS: PHOSPHORUS 2.4 mg/dl (2.5-4.9)
[2016-12-25] MEDS: ENOXAPARIN 30 MG/0.3 ML SYR SQ SCH (08:03)
[2016-12-25] MEDS: FLUTICASONE FUROATE-VILANTEROL 200/25 MCG INH IN SCH (08:11)
[2016-12-25] MEDS: KETOTIFEN FUMARATE (ZADITOR) 0.025% 5 ML BTL OP SCH ×2 (08:18→19:41)
[2016-12-25] MEDS: METRONIDAZOLE VAG 0.75% PV SCH (08:19)
[2016-12-25] MEDS: CLOBETASOL PROPIONATE 0.05% EXT SCH ×2 (08:20→19:41)
[2016-12-25] MEDS: MENTHOL-ZINC OXIDE 360 APPLN/120 GM TUBE EXT SCH (08:20)
[2016-12-25] MEDS ORDERED: HYDROmorphone HCL 0.5MG/ML 50 ML CASSETTE IV PRN (08:30)
[2016-12-25] MEDS ORDERED: NALOXONE HCL 0.4 MG/1 ML VIAL/CARP IV PRN (08:30)
[2016-12-25] MEDS: NORMOSOL R 1,000 ML IV SCH (08:34)
[2016-12-25] MEDS: PANTOprazole INJ 40 MG in SYRINGE 0 ML IV SCH (08:35)
--- NOTE | 2016-12-25 09:38 | Infectious Disease Progress Nt ---
Progress Note Date of Service Dec 25, 2016. Subjective Pt evaluation today including: conversation w/ patient, physical exam, chart review, lab review, review of studies, conversation w/ design consultant, review of inpatient medication list Hemodynamically stable overnight. No fevers. Abdominal pain 11/23. Tolerating Zosyn. All Other Systems: Reviewed and Negative Medications Current Inpatient Medications Medications (Trade) Dose Ordered Sig/Aleksander Route Start Time Stop Time Status Last Admin Dose Admin Ondansetron HCl (Zofran Inj) 4 mg Q6H PRN IV 12/13/16 15:00 01/12/17 14:59 12/20/16 07:28 4 MG Albuterol (Ventolin Hfa Inhaler) 2 puffs Q4 PRN INH 12/13/16 15:00 01/12/17 14:59 Amlodipine Besylate (Norvasc Tab) 10 mg QAM PO 12/14/16 09:00 01/13/17 08:59 Future Hold 12/20/16 09:10 10 MG Fluticasone Propionate (Flonase Nasal [place]) 2 sprays DAILY PRN LARRY 12/13/16 15:00 01/12/17 14:59 Loratadine (Claritin Tab) 10 mg DAILY PRN PO 12/13/16 15:00 01/12/17 14:59 Pentosan Polysulfate Sodium (Elmiron) 100 mg BID PO 12/13/16 21:00 01/12/17 20:59 12/24/16 08:01 100 MG Metoclopramide HCl (Reglan Inj) 10 mg Q6H PRN IV. 12/13/16 19:15 01/12/17 19:14 12/20/16 05:36 10 MG Fluticasone/ Vilanterol (Breo Ellipta 200-25 Mcg/Inh) 1 inha DAILY IN 12/14/16 09:00 01/13/17 08:59 12/25/16 08:11 1 INHA Ketotifen Fumarate 1 drops 1 drops Q12 OP 12/14/16 09:00 01/13/17 08:59 12/25/16 08:18 1 DROPS Pantoprazole Sodium/Syringe (Protonix Inj/ Syringe) 10 ml @ 5 mls/min DAILY@11 IV 12/15/16 11:00 01/14/17 10:59 12/25/16 08:35 5 MLS/MIN Tramadol HCl 50 mg 50 mg Q4H PRN PO 12/16/16 08:15 01/15/17 08:14 12/17/16 00:52 50 MG Acetaminophen/ Empty Bag (Ofirmev IV/ Empty Iv Bag 100ml) 65 ml @ 260 mls/hr Q6H PRN IV 12/18/16 13:15 01/17/17 13:14 12/24/16 02:54 260 MLS/HR Hard Fat/ Phenylephrine (Anusol Supp) 1 ea BID PRN [place] 12/19/16 09:00 01/18/17 08:59 12/19/16 21:04 1 EA Metronidazole HCl (Metrogel Vag Gel) 2 appln DAILY PV 12/20/16 09:00 12/30/16 08:59 12/25/16 08:19 2 APPLN Menthol/Zinc Oxide (Calmoseptine Oint) 1 appln DAILY EXT 12/20/16 09:00 01/19/17 08:59 12/25/16 08:20 1 APPLN Clobetasol Propionate (Clobetasol Propionate Oint) 1 appln BID EXT 12/19/16 21:00 01/18/17 20:59 12/25/16 08:20 1 APPLN Heparin Sodium (Porcine) (Heparin 10 Unit/ ml 5 ml Flush) 1 ml PRN PRN FLUSH 12/20/16 13:15 01/19/17 13:14 12/25/16 04:06 1 ML Piperacillin Sod/ Tazobactam Sod (Consult) 1 ea UD PRN N/A 12/20/16 15:45 01/19/17 15:44 Hydromorphone HCl (Dilaudid Inj) 0.5 mg Q1HWA PRN IV 12/21/16 18:30 01/04/17 18:29 12/25/16 08:02 0.5 MG Enoxaparin Sodium 30 mg 30 mg QAM SQ 12/22/16 09:00 01/21/17 08:59 12/25/16 08:03 30 MG Piperacillin Sod/ Tazobactam Sod/ Dextrose (Zosyn Iv/D5 100ml) 115 ml @ 28.75 mls/ hr Q8H IV 12/23/16 20:00 12/31/16 23:59 12/25/16 04:06 28.75 MLS/HR Hydrocortisone 1 appln 1 appln TID PRN EXT 12/24/16 10:45 01/23/17 10:44 Parenteral Electrolyte Solution (Normosol R) 1,000 ml @ 50 mls/hr Q20H IV 12/24/16 10:45 01/23/17 10:44 12/25/16 08:34 50 MLS/HR Naloxone HCl (Narcan Inj) 0.1 mg Q5M PRN IV 12/25/16 08:30 01/24/17 08:29 Hydromorphone HCl 25 mg 25 mg PRN PRN IV 12/25/16 08:30 01/08/17 08:29 Sodium Chloride (Nss 1000ml) 1,000 ml @ 15 mls/hr Q24H IV 12/25/16 08:30 01/24/17 08:29 Objective Vital Signs Date Time Temp Pulse Resp B/P Pulse Ox O2 Delivery O2 Flow Rate FiO2 12/25/16 06:00 94 16 141/56 96 12/25/16 05:19 98 18 154/87 97 12/25/16 04:00 36.7 111 22 167/57 96 12/25/16 04:00 Nasal Cannula 2.0 12/25/16 03:00 104 26 154/74 96 12/25/16 02:00 91 27 140/58 95 Nasal Cannula 2.0 12/25/16 01:00 101 23 153/81 95 Nasal Cannula 2.0 12/25/16 00:00 Nasal Cannula 2.0 12/25/16 00:00 37.0 97 18 149/59 96 Nasal Cannula 2.0 12/24/16 23:00 76 19 130/58 96 Nasal Cannula 2.0 12/24/16 22:00 97 20 159/70 96 Nasal Cannula 2.0 12/24/16 20:00 37.3 100 18 164/84 96 Nasal Cannula 2.0 12/24/16 20:00 96 Nasal Cannula 2.0 12/24/16 18:00 108 18 174/80 96 Nasal Cannula 2.0 12/24/16 16:00 102 18 143/59 96 2.0 12/24/16 16:00 Nasal Cannula 2.0 12/24/16 14:00 105 20 148/70 96 Nasal Cannula 2.0 12/24/16 12:41 103 98 12/24/16 12:00 95 Nasal Cannula 2.0 12/24/16 12:00 109 30 142/55 97 Room Air 2.0 12/24/16 10:00 103 28 127/55 98 Nasal Cannula 2.0 Physical Exam General Appearance: WD/WN, no apparent distress Eyes: normal inspection, sclerae normal ENT: normal ENT inspection, pharynx normal, + pertinent finding (NG tube) Neck: supple, no adenopathy, trachea midline Respiratory/Chest: chest non-tender, lungs clear, normal breath sounds, no respiratory distress Cardiovascular: regular rate, rhythm, no gallop, no murmur Abdomen: normal bowel sounds, no organomegaly, + distended, + tenderness Extremities: non-tender, no calf tenderness Neurologic/Psychiatric: alert, oriented x 3 Skin: normal color, warm/dry, no rash Laboratory Results RUN DATE: 12/25/16 [facility] LAB PAGE 1 RUN TIME: 727 Specimen Inquiry PATIENT: PATY REYNOSO [facility] [place] U # : [id number] AGE/SX: 86/F ROOM: E107 REG : 12/13/[address]: Khurram Rodriguez MD, PhD : 1930 BED: 1 DIS : STATUS: ADM IN TLOC: SPEC #: [id number] CHLOE: 12/21/16 STATUS: RES REQ #: [id number] RECD: 12/21/16 [facility] DR: Andrey Lomax D.O. SOURCE: DRAIN-DEEP ENTR: 12/21/[address] [facility] [address]: Norberto Basurto M.D. [facility]: Gerald Bernard M.D. Hester, Christopher E., M.D. ORDERED: AER/AUR[facility]A CULTSMR Procedure Result Verified Site GRAM STAIN Final 12/21/16-1649 RESULT FEW WBCs SEEN MODERATE GRAM POSITIVE BACILLI RARE YEAST Phoned results to CALEB MCCANN on 12/21/16 at 1650 by Ken Avila. Results were verbalized back to BECKY. OR AER/AURORA CULT Preliminary 12/25/16 Organism 1 SERRATIA MARCESCENS QUANITY FEW SENS SENSITIVITY TO FOLLOW +MIXWOUND PLUS LOW COUNTS OF PROBABLE SKIN FRENCH Organism 2 ESCHERICHIA COLI QUANITY FEW SENS SENSITIVITY TO FOLLOW Organism 3 ENTEROCOCCUS FAECALIS QUANITY FEW SENS SENSITIVITY TO FOLLOW Organism 4 PROBABLE AURORA GRAM NEG BACILLI QUANITY MODERATE SENS SENSITIVITIES DEPENDENT ON FURTHER IDENTIFICATION CONTINUED ON NEXT PAGE RUN DATE: 12/25/16 [facility] LAB PAGE 2 RUN TIME: 727 Specimen Inquiry SPEC: [id number] PATIENT: PATY REYNOSO [id number] ( Continued) Procedure Result Verified Site OR AER/AURORA CULT Preliminary (continued) 12/25/16-727 [facility] COLI E FAECALIS M.I.C. RX M.I.C. RX M.I.C. RX --------- ------ --------- ------ --------- ------ TRIMET/SULFA <=2/38 S <=2/38 S AMPICILLIN >16 R <=2 S AMPICILLIN/SUL 16/8 I CEFAZOLIN <=8 S CEFOTAXIME <=2 S <=2 S CEFTRIAXONE <=1 S <=1 S CEFEPIME <=4 S <=4 S CEFUROXIME <=4 S IMIPENEM <=1 S <=1 S GENT SYNERGY <=500 S VANCOMYCIN 2 S PENICILLIN 2 S GENTAMICIN <=4 S <=4 S TOBRAMYCIN <=4 S <=4 S AMIKACIN <=16 S <=16 S CIPROFLOXACIN <=1 S <=1 S LEVOFLOXACIN <=2 S <=2 S ERTAPENEM <=1 S <=1 S DAPTOMYCIN <=0.5 S PIP/TAZO <=16 S <=16 S STREP SYNERGY <=1000 S ENTEROCOCCUS FAECALIS: POSITIVE COMBO 33 Streptomycin Synergy Screen S Gentamicin Synergy Screen S 1. SERRATIA MARCESCENS Target Route Dose RX AB Cost M.I.C. IQ ------ ----- ------ -- ------ -------- - ------ TRIMET/SULFA S <=2/38 CEFOTAXIME S <=2 CEFTRIAXONE S <=1 CEFEPIME S <=4 IMIPENEM S <=1 GENTAMICIN S <=4 TOBRAMYCIN S <=4 AMIKACIN S <=16 CIPROFLOXACIN S <=1 LEVOFLOXACIN S <=2 ERTAPENEM S <=1 PIP/TAZO S <=16 CONTINUED ON NEXT PAGE RUN DATE: 12/25/16 [facility] LAB PAGE 3 RUN TIME: 727 Specimen Inquiry SPEC: [id number] PATIENT: PATY REYNOSO [id number] ( Continued) Procedure Result Verified Site OR AER/AURORA JENKINS Preliminary (continued) 12/25/16-727 2. ESCHERICHIA COLI Target Route Dose RX AB Cost M.I.C. IQ ------ ----- ------ -- ------ -------- - ------ TRIMET/SULFA S <=2/ AMPICILLIN R >16 AMPICILLIN/SUL I 01/05 CEFAZOLIN S <=8 CEFOTAXIME S <=2 CEFTRIAXONE S <=1 CEFEPIME S <=4 CEFUROXIME S <=4 Last 24 Hours Test 12/25/16 05:18 White Blood Count 17.56 K/uL Red Blood Count 3.67 M/uL Hemoglobin 10.9 g/dL Hematocrit 31.8 % Mean Corpuscular Volume 86.6 fL Mean Corpuscular Hemoglobin 29.7 pg Mean Corpuscular Hemoglobin Concent 34.3 g/dl Platelet Count 348 K/uL Mean Platelet Volume 10.0 fL Neutrophils (%) (Auto) 88.4 % Lymphocytes (%) (Auto) 6.6 % Monocytes (%) (Auto) 3.5 % Eosinophils (%) (Auto) 0.3 % Basophils (%) (Auto) 0.1 % Neutrophils # (Auto) 15.50 K/uL Lymphocytes # (Auto) 1.16 K/uL Monocytes # (Auto) 0.62 K/uL Eosinophils # (Auto) 0.06 K/uL Basophils # (Auto) 0.02 K/uL RDW Standard Deviation 49.0 fL RDW Coefficient of Variation 15.3 % Immature Granulocyte % (Auto) 1.1 % Immature Granulocyte # (Auto) 0.20 K/uL Sodium Level 139 mmol/L Potassium Level 4.3 mmol/L Chloride Level 104 mmol/L Carbon Dioxide Level 29 mmol/L Anion Gap 6.0 mmol/L Blood Urea Nitrogen 28 mg/dl Creatinine 0.66 mg/dl Est Creatinine Clear Calc Drug Dose 60.4 ml/min Estimated GFR () 94.0 Estimated GFR (Non- 81.1 BUN/Creatinine Ratio 42.5 Random Glucose 94 mg/dl Calcium Level 7.4 mg/dl Phosphorus Level 2.4 mg/dl Magnesium Level 1.9 mg/dl Assessment and Plan Gram-negative sepsis from intra-abdominal infection with abscess formation from anastomotic leak following colectomy. blood cultures are positive for Serratia, operative cultures growing multiple organisms including E coli, Serratia, Enterococcus, and anaerobes. Patient should be continued on IV Zosyn. Length of IV antibiotics will be determined by clinical response. Will follow.
--- NOTE | 2016-12-25 09:55 | Surgery Progress Note ---
Surgery Progress Note Date of Service Dec 25, 2016. Subjective Post OP Day: 4 + diet (ice), + nausea (little yesterday), No complaints Objective Vital Signs: Date Time Temp Pulse Resp B/P Pulse Ox O2 Delivery O2 Flow Rate FiO2 12/25/16 06:00 94 16 141/56 96 12/25/16 05:19 98 18 154/87 97 12/25/16 04:00 36.7 111 22 167/57 96 12/25/16 04:00 Nasal Cannula 2.0 12/25/16 03:00 104 26 154/74 96 12/25/16 02:00 91 27 140/58 95 Nasal Cannula 2.0 12/25/16 01:00 101 23 153/81 95 Nasal Cannula 2.0 12/25/16 00:00 Nasal Cannula 2.0 12/25/16 00:00 37.0 97 18 149/59 96 Nasal Cannula 2.0 12/24/16 23:00 76 19 130/58 96 Nasal Cannula 2.0 12/24/16 22:00 97 20 159/70 96 Nasal Cannula 2.0 12/24/16 20:00 37.3 100 18 164/84 96 Nasal Cannula 2.0 12/24/16 20:00 96 Nasal Cannula 2.0 12/24/16 18:00 108 18 174/80 96 Nasal Cannula 2.0 12/24/16 16:00 102 18 143/59 96 2.0 12/24/16 16:00 Nasal Cannula 2.0 12/24/16 14:00 105 20 148/70 96 Nasal Cannula 2.0 12/24/16 12:41 103 98 12/24/16 12:00 95 Nasal Cannula 2.0 12/24/16 12:00 109 30 142/55 97 Room Air 2.0 12/24/16 10:00 103 28 127/55 98 Nasal Cannula 2.0 Physical Exam: Tima drainage (both drains were loose and mostly pulled out) Abdomen: soft, + distended (less), + pertinent finding (stoma pink) Laboratory Results: Results Past 24 Hours Test 12/25/16 05:18 Range/Units White Blood Count 17.56 4.8-10.8 K/uL Red Blood Count 3.67 4.2-5.4 M/uL Hemoglobin 10.9 12.0-16.0 g/dL Hematocrit 31.8 37-47 % Mean Corpuscular Volume 86.6 80-100 fL Mean Corpuscular Hemoglobin 29.7 25-34 pg Mean Corpuscular Hemoglobin Concent 34.3 32-36 g/dl Platelet Count 348 130-400 K/uL Mean Platelet Volume 10.0 7.4-10.4 fL Neutrophils (%) (Auto) 88.4 % Lymphocytes (%) (Auto) 6.6 % Monocytes (%) (Auto) 3.5 % Eosinophils (%) (Auto) 0.3 % Basophils (%) (Auto) 0.1 % Neutrophils # (Auto) 15.50 1.4-6.5 K/uL Lymphocytes # (Auto) 1.16 1.2-3.4 K/uL Monocytes # (Auto) 0.62 0.11-0.59 K/uL Eosinophils # (Auto) 0.06 0-0.5 K/uL Basophils # (Auto) 0.02 0-0.2 K/uL RDW Standard Deviation 49.0 36.4-46.3 fL RDW Coefficient of Variation 15.3 11.5-14.5 % Immature Granulocyte % (Auto) 1.1 % Immature Granulocyte # (Auto) 0.20 0.00-0.02 K/uL Sodium Level 139 136-145 mmol/L Potassium Level 4.3 3.5-5.1 mmol/L Chloride Level 104 98-107 mmol/L Carbon Dioxide Level 29 21-32 mmol/L Anion Gap 6.0 3-11 mmol/L Blood Urea Nitrogen 28 7-18 mg/dl Creatinine 0.66 0.60-1.20 mg/dl Est Creatinine Clear Calc Drug Dose 60.4 ml/min Estimated GFR () 94.0 Estimated GFR (Non- 81.1 BUN/Creatinine Ratio 42.5 10-20 Random Glucose 94 70-99 mg/dl Calcium Level 7.4 8.5-10.1 mg/dl Phosphorus Level 2.4 2.5-4.9 mg/dl Magnesium Level 1.9 1.8-2.4 mg/dl Microbiology Results 12/25/16 MRSA DNA Surveillance Screen - Final, Complete Specimen Negative for MRSA by DNA Probe Assessment & Plan transverse colectomy colostomy/mucus fistula for anastomotic leak on IV Zosyn, WBC up slightly but also more hemoconcentrated drains were pulled out, not holding suction and were removed can have clears Anemia H&H stable after transfusion GABRIEL creatine at baseline
[2016-12-25] MEDS: SODIUM CHLORIDE 0.9% 1000ML 1,000 ML IV SCH (10:14)
--- NOTE | 2016-12-25 11:13 | Surgery Progress Note ---
Surgery Progress Note Date of Service Dec 25, 2016. Subjective Post OP Day: 4 continues slow improvement. lyric liquids. pain controlled. Objective Vital Signs: Date Time Temp Pulse Resp B/P Pulse Ox O2 Delivery O2 Flow Rate FiO2 12/25/16 06:00 94 16 141/56 96 12/25/16 05:19 98 18 154/87 97 12/25/16 04:00 36.7 111 22 167/57 96 12/25/16 04:00 Nasal Cannula 2.0 12/25/16 03:00 104 26 154/74 96 12/25/16 02:00 91 27 140/58 95 Nasal Cannula 2.0 12/25/16 01:00 101 23 153/81 95 Nasal Cannula 2.0 12/25/16 00:00 Nasal Cannula 2.0 12/25/16 00:00 37.0 97 18 149/59 96 Nasal Cannula 2.0 12/24/16 23:00 76 19 130/58 96 Nasal Cannula 2.0 12/24/16 22:00 97 20 159/70 96 Nasal Cannula 2.0 12/24/16 20:00 37.3 100 18 164/84 96 Nasal Cannula 2.0 12/24/16 20:00 96 Nasal Cannula 2.0 12/24/16 18:00 108 18 174/80 96 Nasal Cannula 2.0 12/24/16 16:00 102 18 143/59 96 2.0 12/24/16 16:00 Nasal Cannula 2.0 12/24/16 14:00 105 20 148/70 96 Nasal Cannula 2.0 12/24/16 12:41 103 98 12/24/16 12:00 95 Nasal Cannula 2.0 12/24/16 12:00 109 30 142/55 97 Room Air 2.0 General Appearance: no apparent distress Abdomen: soft, + pertinent finding (expected tenderness. stoma viable/ functioning with loose brown stool) Incision(s): clean, dry, intact Laboratory Results: Results Past 24 Hours Test 12/25/16 05:18 Range/Units White Blood Count 17.56 4.8-10.8 K/uL Red Blood Count 3.67 4.2-5.4 M/uL Hemoglobin 10.9 12.0-16.0 g/dL Hematocrit 31.8 37-47 % Mean Corpuscular Volume 86.6 80-100 fL Mean Corpuscular Hemoglobin 29.7 25-34 pg Mean Corpuscular Hemoglobin Concent 34.3 32-36 g/dl Platelet Count 348 130-400 K/uL Mean Platelet Volume 10.0 7.4-10.4 fL Neutrophils (%) (Auto) 88.4 % Lymphocytes (%) (Auto) 6.6 % Monocytes (%) (Auto) 3.5 % Eosinophils (%) (Auto) 0.3 % Basophils (%) (Auto) 0.1 % Neutrophils # (Auto) 15.50 1.4-6.5 K/uL Lymphocytes # (Auto) 1.16 1.2-3.4 K/uL Monocytes # (Auto) 0.62 0.11-0.59 K/uL Eosinophils # (Auto) 0.06 0-0.5 K/uL Basophils # (Auto) 0.02 0-0.2 K/uL RDW Standard Deviation 49.0 36.4-46.3 fL RDW Coefficient of Variation 15.3 11.5-14.5 % Immature Granulocyte % (Auto) 1.1 % Immature Granulocyte # (Auto) 0.20 0.00-0.02 K/uL Sodium Level 139 136-145 mmol/L Potassium Level 4.3 3.5-5.1 mmol/L Chloride Level 104 98-107 mmol/L Carbon Dioxide Level 29 21-32 mmol/L Anion Gap 6.0 3-11 mmol/L Blood Urea Nitrogen 28 7-18 mg/dl Creatinine 0.66 0.60-1.20 mg/dl Est Creatinine Clear Calc Drug Dose 60.4 ml/min Estimated GFR () 94.0 Estimated GFR (Non- 81.1 BUN/Creatinine Ratio 42.5 10-20 Random Glucose 94 70-99 mg/dl Calcium Level 7.4 8.5-10.1 mg/dl Phosphorus Level 2.4 2.5-4.9 mg/dl Magnesium Level 1.9 1.8-2.4 mg/dl Microbiology Results 12/25/16 Fungal Smear, Ordered Pending 12/25/16 Fungal Culture, Ordered Pending 12/25/16 MRSA DNA Surveillance Screen - Final, Complete Specimen Negative for MRSA by DNA Probe Assessment & Plan 12/15/16 slow improvement. wbc still elevated. d/w Dr. Frost. will add antifungal ok to transfer from icu today will need aggressive pt/ot in upcoming days/weeks and will likely need rehab will slowly advance diet as she tolerates. 12/24/16 see below. pt continues to slowly improve now. FRANCINE's serous. +stool in colostomy. appreciate ICU input. increase activity. can d/c ngt and start clears soon hopefully transfer from ICU tomorrow. transverse colectomy colostomy/mucus fistula for anastomotic leak on TPN, Zosyn moderate NG output although some returning bowel function Anemia H&H stable after transfusion GABRIEL creatine back to baseline this AM 12/24/16 see below. pt continues to slowly improve now. FRANCINE's serous. +stool in colostomy. appreciate ICU input. increase activity. can d/c ngt and start clears soon hopefully transfer from ICU tomorrow. transverse colectomy colostomy/mucus fistula for anastomotic leak on TPN, Zosyn moderate NG output although some returning bowel function Anemia H&H stable after transfusion GABRIEL creatine back to baseline this AM
--- NOTE | 2016-12-25 11:26 | Critical Care Progress Note ---
Critical Care Progress Note Date of Service Dec 25, 2016. ICU Day ICU Day Number: [address] Frost Subjective Reported feeling ok today. Still has persistent pain and using dilaudid frequently, about every 1-2 hours. Has had colostomy output. Objective GENERAL: Awake, alert, no acute distress. HENT: Normocephalic, atraumatic. Oropharynx unremarkable. NG tube present. EYES: Normal conjunctiva. Sclera non-icteric. NECK: Supple. No nuchal rigidity. FROM. No JVD. RESPIRATORY: Clear to auscultation. CARDIAC: Regular rate, normal rhythm. Extremities warm and well perfused. Pulses equal. ABDOMEN: Soft, non-distended. No tenderness to palpation. Dressings over midline abdominal incision. Colostomy with about 75cc dark liquid in bag. MUSCULOSKELETAL: Chest examination reveals no tenderness. The back is symmetrical on inspection without obvious abnormality. There is no CVA tenderness to palpation. No joint edema. LOWER EXTREMITIES: Calves are equal size bilaterally and non-tender. No edema. No discoloration. NEURO: Normal sensorium. No sensory or motor deficits noted. SKIN: No rash or jaundice noted. Current SOFA Score SOFA Score Response (Comments) Value PaO2/FiO2 (mmHg) < 400 1 Total 1 Previous SOFA Scores 12/24/16: 3 Assessment & Plan 86 yo F initially admitted 12/14 for a transverse colectomy, developed sepsis and is p/o day 3 for repeat laparotomy with colostomy formation, anastomosis take down and abdominal washout. Active issues include persistent pain, and new increase in white blood cell count, with new concern for fungal infeciton. Neuro: Has been using dilaudid 0.1mg q1-2hours, which takes pain from 7 to 4. Minimal effect from ketamine dose yesterday. - Will start dilaudid OFFSET SECOND PRESS OPERATOR today. Resp: Has been weaned to room air. Will obtain a two view CXR now. CVS: CV drips: None EKG: Last on 12/20/16, Sinus tachycardia, QTc 418 Fluids/Renal: I&O yesterday balanced, +14mL total. Cumulative 7849mL + fluid balance Cr 0.66, at baseline. Urine output: 475mL today NG Output: 75mL today, significantly decreasing overall FRANCINE drains: 130mL yesterday, now 5mL today - Will start Normosol at 50cc/hour - DC Zepeda today GI: Feedings: NG tube removed yesterday. Tolerating ice chips. BM: Colostomy functioning with small amounts liquidy stool present. 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 - Advance diet as tolerated. Heme: H&H stable at 10.9/31.8 DVT Prophylaxis: Lovenox 30mg SQ Skin: Known lichen planus, has hydrocortisone prescribed to be applied TID - Wound care consult ID: Day 4 Zosyn ID Following: Yes, Dr Francis Genital Culture: Gram Positive Cocci, Escherichia Coli Blood Cultures: Serratia Marcescens, Escherichia Coli, Enterococcus Faecalis, Probable Alisha Gram Neg Bacilli Urine: 3 types of organisms, none >100,000 CFU - We will obtain Fungal cultures today - We will start Caspofungin 70mg IV today, 50mg IV thereafter. Resident Physician Supervision Note: Dr. Rosario was resident physician during care of patient. I separately evaluated patient and did history and exam. I discussed the case with the resident and generally agree with the findings and plan. NG has been removed, starting liquid diet today, OFFSET SECOND PRESS OPERATOR for pain control, on Lovenox for DVT prophylaxis, concern for increase in white count discussed with Dr. Lomax reported gross contamination of surgical bed with fecal matter, we' ll empirically add caspofungin, sent fungal cultures today, was on TPN and had presumptive intra-abdominal sepsis at risk for fungemia, discontinue Zepeda. Discussed with Dr. Dami shaw for downgraded. 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 12/21 - ex-lap with washout for anastomotic leak Data Medications: Current Inpatient Medications Medications (Trade) Dose Ordered Sig/Aleksander Route Start Time Stop Time Status Last Admin Dose Admin Ondansetron HCl (Zofran Inj) 4 mg Q6H PRN IV 12/13/16 15:00 01/12/17 14:59 12/20/16 07:28 4 MG Albuterol (Ventolin Hfa Inhaler) 2 puffs Q4 PRN INH 12/13/16 15:00 01/12/17 14:59 Amlodipine Besylate (Norvasc Tab) 10 mg QAM PO 12/14/16 09:00 4/30/17 08:59 Future Hold 12/20/16 09:10 10 MG Fluticasone Propionate (Flonase Nas[place]) 2 sprays DAILY PRN LARRY 12/13/16 15:00 01/12/17 14:59 Loratadine (Claritin Tab) 10 mg DAILY PRN PO 12/13/16 15:00 01/12/17 14:59 Pentosan Polysulfate Sodium (Elmiron) 100 mg BID PO 12/13/16 21:00 01/12/17 20:59 12/24/16 08:01 100 MG Metoclopramide HCl (Reglan Inj) 10 mg Q6H PRN IV. 12/13/16 19:15 01/12/17 19:14 12/20/16 05:36 10 MG Fluticasone/ Vilanterol (Breo Ellipta 200-25 Mcg/Inh) 1 inha DAILY IN 12/14/16 09:00 01/13/17 08:59 12/25/16 08:11 1 INHA Ketotifen Fumarate 1 drops 1 drops Q12 OP 12/14/16 09:00 01/13/17 08:59 12/25/16 08:18 1 DROPS Pantoprazole Sodium/Syringe (Protonix Inj/ Syringe) 10 ml @ 5 mls/min DAILY@11 IV 12/15/16 11:00 01/14/17 10:59 12/25/16 08:35 5 MLS/MIN Tramadol HCl 50 mg 50 mg Q4H PRN PO 12/16/16 08:15 01/15/17 08:14 12/17/16 00:52 50 MG Acetaminophen/ Empty Bag (Ofirmev IV/ Empty Iv Bag 100ml) 65 ml @ 260 mls/hr Q6H PRN IV 12/18/16 13:15 01/17/17 13:14 12/24/16 02:54 260 MLS/HR Hard Fat/ Phenylephrine (Anusol Supp) 1 ea BID PRN ID 12/19/16 09:00 01/18/17 08:59 12/19/16 21:04 1 EA Metronidazole HCl (Metrogel Vag Gel) 2 appln DAILY PV 12/20/16 09:00 12/30/16 08:59 12/25/16 08:19 2 APPLN Menthol/Zinc Oxide (Calmoseptine Oint) 1 appln DAILY EXT 12/20/16 09:00 01/19/17 08:59 12/25/16 08:20 1 APPLN Clobetasol Propionate (Clobetasol Propionate Oint) 1 appln BID EXT 12/19/16 21:00 01/18/17 20:59 12/25/16 08:20 1 APPLN Heparin Sodium (Porcine) (Heparin 10 Unit/ ml 5 ml Flush) 1 ml PRN PRN FLUSH 12/20/16 13:15 01/19/17 13:14 12/25/16 04:06 1 ML Piperacillin Sod/ Tazobactam Sod (Consult) 1 ea UD PRN N/A 12/20/16 15:45 01/19/17 15:44 Enoxaparin Sodium 30 mg 30 mg QAM SQ 12/22/16 09:00 01/21/17 08:59 12/25/16 08:03 30 MG Piperacillin Sod/ Tazobactam Sod/ Dextrose (Zosyn Iv/D5 100ml) 115 ml @ 28.75 mls/ hr Q8H IV 12/23/16 20:00 12/31/16 23:59 12/25/16 04:06 28.75 MLS/HR Hydrocortisone 1 appln 1 appln TID PRN EXT 12/24/16 10:45 01/23/17 10:44 Parenteral Electrolyte Solution (Normosol R) 1,000 ml @ 50 mls/hr Q20H IV 12/24/16 10:45 01/23/17 10:44 12/25/16 08:34 50 MLS/HR Naloxone HCl (Narcan Inj) 0.1 mg Q5M PRN IV 12/25/16 08:30 01/24/17 08:29 Hydromorphone HCl 25 mg 25 mg PRN PRN IV 12/25/16 08:30 01/08/17 08:29 12/25/16 10:20 25 MG Sodium Chloride 1,000 ml @ 15 mls/hr Q24H IV 12/25/16 08:30 01/24/17 08:29 12/25/16 10:14 15 MLS/HR Caspofungin 70 mg/ Sodium Chloride 260 ml @ 250 mls/hr ONE IV 12/25/16 11:00 12/27/16 10:59 UNV Caspofungin/ Sodium Chloride (Cancidas Inj/ Nss 250ml) 260 ml @ 250 mls/hr DAILY IV 12/26/16 11:00 12/28/16 10:59 UNV I & O: 24-Hour Column 12/25/16 08:00 Intake Total 2630 ml Output Total 1910 ml Balance 720 ml Vital Signs: Date Time Temp Pulse Resp B/P Pulse Ox O2 Delivery O2 Flow Rate FiO2 12/25/16 06:00 94 16 141/56 96 12/25/16 05:19 98 18 154/87 97 12/25/16 04:00 36.7 111 22 167/57 96 12/25/16 04:00 Nasal Cannula 2.0 12/25/16 03:00 104 26 154/74 96 12/25/16 02:00 91 27 140/58 95 Nasal Cannula 2.0 12/25/16 01:00 101 23 153/81 95 Nasal Cannula 2.0 12/25/16 00:00 Nasal Cannula 2.0 12/25/16 00:00 37.0 97 18 149/59 96 Nasal Cannula 2.0 12/24/16 23:00 76 19 130/58 96 Nasal Cannula 2.0 12/24/16 22:00 97 20 159/70 96 Nasal Cannula 2.0 12/24/16 20:00 37.3 100 18 164/84 96 Nasal Cannula 2.0 12/24/16 20:00 96 Nasal Cannula 2.0 12/24/16 18:00 108 18 174/80 96 Nasal Cannula 2.0 12/24/16 16:00 102 18 143/59 96 2.0 12/24/16 16:00 Nasal Cannula 2.0 12/24/16 14:00 105 20 148/70 96 Nasal Cannula 2.0 12/24/16 12:41 103 98 12/24/16 12:00 95 Nasal Cannula 2.0 12/24/16 12:00 109 30 142/55 97 Room Air 2.0 Laboratory Results: Last 24 Hours Test 12/25/16 05:18 White Blood Count 17.56 K/uL Red Blood Count 3.67 M/uL Hemoglobin 10.9 g/dL Hematocrit 31.8 % Mean Corpuscular Volume 86.6 fL Mean Corpuscular Hemoglobin 29.7 pg Mean Corpuscular Hemoglobin Concent 34.3 g/dl Platelet Count 348 K/uL Mean Platelet Volume 10.0 fL Neutrophils (%) (Auto) 88.4 % Lymphocytes (%) (Auto) 6.6 % Monocytes (%) (Auto) 3.5 % Eosinophils (%) (Auto) 0.3 % Basophils (%) (Auto) 0.1 % Neutrophils # (Auto) 15.50 K/uL Lymphocytes # (Auto) 1.16 K/uL Monocytes # (Auto) 0.62 K/uL Eosinophils # (Auto) 0.06 K/uL Basophils # (Auto) 0.02 K/uL RDW Standard Deviation 49.0 fL RDW Coefficient of Variation 15.3 % Immature Granulocyte % (Auto) 1.1 % Immature Granulocyte # (Auto) 0.20 K/uL Sodium Level 139 mmol/L Potassium Level 4.3 mmol/L Chloride Level 104 mmol/L Carbon Dioxide Level 29 mmol/L Anion Gap 6.0 mmol/L Blood Urea Nitrogen 28 mg/dl Creatinine 0.66 mg/dl Est Creatinine Clear Calc Drug Dose 60.4 ml/min Estimated GFR () 94.0 Estimated GFR (Non- 81.1 BUN/Creatinine Ratio 42.5 Random Glucose 94 mg/dl Calcium Level 7.4 mg/dl Phosphorus Level 2.4 mg/dl Magnesium Level 1.9 mg/dl Resident Tracking Resident Involvement: Resident Care Provided Care Provided: Adult Hospital Medicine (ICU)
[2016-12-25] MEDS ORDERED: CASPOFUNGIN INJ 70 MG in SODIUM CHLORIDE 0.9% 250ML 250 ML IV SCH (12:00)
--- NOTE | 2016-12-25 12:58 | Progress Note ---
Subjective Date of Service: Dec 25, 2016. Subjective Pt evaluation today including: conversation w/ patient, physical exam, chart review, review of inpatient medication list Dilaudid CHAIN MAKER pump started because of poor control pain, seems out of bed to chair ready to x-ray when I seeing her, no special complaint, looks less tired than yesterday Problem List Medical Problems: (1) Urinary tract infection Status: Acute (2) Vaginal burning Status: Acute Review of Systems Constitutional: + fatigue, No chills, No fever, No problem reported, No sweats , No weakness, No weight loss Eyes: No diplopia, No discharge, No eye pain, No redness, No worsening of vision ENT: No dental problems, No hearing loss, No nasal symptoms, No sore throat, No tinnitus, No trouble swallowing, No unusual epistaxis Respiratory: + cough, No dyspnea at rest, No dyspnea on exertion, No hemoptysis , No shortness of breath, No sputum, No wheezing Cardiac: No PND, No chest pain, No claudication, No edema, No orthopnea, No palpitations Abdomen: + pain, No constipation, No diarrhea, No nausea, No vomiting Musculoskeletal: No calf pain, No joint pain, No muscle pain, No swelling Female : No abnormal vaginal bleeding, No dysuria, No hematuria, No incontinence, No urinary frequency, No vaginal discharge Neurologic: No balance problems, No memory loss, No numbness/tingling, No paralysis, No vertigo, No weakness Psychiatric: No anhedonism, No anxiety, No depression symptoms, No insomnia, No substance abuse Heme: No abnormal bleeding/bruising, No clotting problems, No night sweats, No swollen lymph nodes Endo: No excessive thirst, No excessive urination, No fatigue Skin: No bleeding, No color change, No itch, No new/changing skin lesions, No rash Objective Vital Signs Date Time Temp Pulse Resp B/P Pulse Ox O2 Delivery O2 Flow Rate FiO2 12/25/16 12:00 Room Air 12/25/16 12:00 116 40 95 12/25/16 11:39 168/69 12/25/16 11:00 96 22 173/58 91 Room Air 12/25/16 11:00 36.6 96 24 173/58 91 Room Air 12/25/16 10:00 99 21 144/65 91 Room Air 12/25/16 09:00 90 24 150/61 91 Room Air 12/25/16 08:00 36.7 101 19 155/67 92 Room Air 12/25/16 08:00 Room Air 12/25/16 07:00 87 25 154/55 95 Nasal Cannula 2.0 12/25/16 06:00 94 16 141/56 96 12/25/16 05:19 98 18 154/87 97 12/25/16 04:00 36.7 111 22 167/57 96 12/25/16 04:00 Nasal Cannula 2.0 12/25/16 03:00 104 26 154/74 96 12/25/16 02:00 91 27 140/58 95 Nasal Cannula 2.0 12/25/16 01:00 101 23 153/81 95 Nasal Cannula 2.0 12/25/16 00:00 Nasal Cannula 2.0 12/25/16 00:00 37.0 97 18 149/59 96 Nasal Cannula 2.0 12/24/16 23:00 76 19 130/58 96 Nasal Cannula 2.0 12/24/16 22:00 97 20 159/70 96 Nasal Cannula 2.0 12/24/16 20:00 37.3 100 18 164/84 96 Nasal Cannula 2.0 12/24/16 20:00 96 Nasal Cannula 2.0 12/24/16 18:00 108 18 174/80 96 Nasal Cannula 2.0 12/24/16 16:00 102 18 143/59 96 2.0 12/24/16 16:00 Nasal Cannula 2.0 12/24/16 14:00 105 20 148/70 96 Nasal Cannula 2.0 Physical Exam General Appearance: WD/WN, no apparent distress, + thin, + pertinent finding ( very ill looking) Eyes: normal inspection, PERRL, EOMI, sclerae normal ENT: normal ENT inspection, hearing grossly normal, pharynx normal Neck: supple, no adenopathy, thyroid normal, no JVD, no carotid bruits, trachea midline Respiratory/Chest: chest non-tender, normal breath sounds, no respiratory distress, no accessory muscle use, + decreased breath sounds Cardiovascular: regular rate, rhythm, no edema, no gallop, no JVD, no murmur Abdomen: normal bowel sounds, soft, no organomegaly, no pulsatile mass, + tenderness (mild ) Extremities: normal range of motion, non-tender, normal inspection, no pedal edema, no calf tenderness, normal capillary refill, pelvis stable Neurologic/Psychiatric: box nailer II-XII nml as tested, no motor/sensory deficits, alert, normal mood/affect, oriented x 3 Skin: normal color, warm/dry, no rash Lymphatic: no adenopathy Laboratory Results Last 24 Hours Test 12/25/16 05:18 White Blood Count 17.56 K/uL Red Blood Count 3.67 M/uL Hemoglobin 10.9 g/dL Hematocrit 31.8 % Mean Corpuscular Volume 86.6 fL Mean Corpuscular Hemoglobin 29.7 pg Mean Corpuscular Hemoglobin Concent 34.3 g/dl Platelet Count 348 K/uL Mean Platelet Volume 10.0 fL Neutrophils (%) (Auto) 88.4 % Lymphocytes (%) (Auto) 6.6 % Monocytes (%) (Auto) 3.5 % Eosinophils (%) (Auto) 0.3 % Basophils (%) (Auto) 0.1 % Neutrophils # (Auto) 15.50 K/uL Lymphocytes # (Auto) 1.16 K/uL Monocytes # (Auto) 0.62 K/uL Eosinophils # (Auto) 0.06 K/uL Basophils # (Auto) 0.02 K/uL RDW Standard Deviation 49.0 fL RDW Coefficient of Variation 15.3 % Immature Granulocyte % (Auto) 1.1 % Immature Granulocyte # (Auto) 0.20 K/uL Sodium Level 139 mmol/L Potassium Level 4.3 mmol/L Chloride Level 104 mmol/L Carbon Dioxide Level 29 mmol/L Anion Gap 6.0 mmol/L Blood Urea Nitrogen 28 mg/dl Creatinine 0.66 mg/dl Est Creatinine Clear Calc Drug Dose 60.4 ml/min Estimated GFR () 94.0 Estimated GFR (Non- 81.1 BUN/Creatinine Ratio 42.5 Random Glucose 94 mg/dl Calcium Level 7.4 mg/dl Phosphorus Level 2.4 mg/dl Magnesium Level 1.9 mg/dl Assessment and Plan 86 yo female with history of HTN, GERD, hyperlipidemia and allergies admitted on 12/14/2016 2 surgery service, hospitalist consulted for medical management s/p transverse colectomy, liver biopsy, POD #12 - s/p takedown anastomosis, end colostomy, mucous fistula, abdominal washout 12/21 , POD #4 abdominal pain today requiring CHAIN MAKER , hypoactive bowel sounds, borderline absent management per primary team surgery deep wound culture growing E coli, Serratia, Strep, No spiking fever But worsening leukocytosis Gram-negative sepsis from intra-abdominal infection with abscess formation from anastomotic leak following colectomy. blood cultures are positive for Serratia, operative cultures growing multiple organisms including E coli, Serratia, Enterococcus, and anaerobes. per ID continued on IV Zosyn. Length of IV antibiotics will be determined by clinical response. BP preserved, no signs of shock, continue stable, infectious disease on the case Acute blood loss anemia: secondary to surgery GABRIEL: likely prerenal and caused by poor oral intake for days after surgery Nutrition support, on TPN per primary team continue pain control supportive care Continued [facility] stay due to: multiple IV medications needed Discharge planning: uncertain
--- NOTE | 2016-12-25 13:07 | DIAGNOSTIC IMAGING REPORT ---
CHEST 2 VIEWS ROUTINE CLINICAL HISTORY: Evaluate for infiltrate. COMPARISON STUDY: Chest radiograph December 20, 2016. FINDINGS: A right PICC is in place. There is no pneumothorax. Pneumoperitoneum shown on prior exams is not evident on this exam. The nasogastric tube has been removed. Bilateral pleural effusions and associated bibasilar opacities persist. Mild pulmonary edema is noted. This is a stable or slightly improved since prior exam. IMPRESSION: 1. Small to moderate right and small left pleural effusions with associated bibasilar opacities which could reflect atelectasis or consolidation. 2. Mild pulmonary edema. Electronically signed by: Farshad Hopson M.D. 12/25/2016 1:05 PM Dictated Date/Time: 12/25/2016 1:02 PM
[2016-12-25] MEDS: PENTOSAN POLYSULFATE SODIUM 100 MG CAP PO SCH (19:42)
[2016-12-26] MEDS: NORMOSOL R 1,000 ML IV SCH ×2 (02:45→23:38)
[2016-12-26] MEDS: ONDANSETRON INJ 2 MG/ML 2 ML VIAL IV PRN ×2 (03:56→14:00)
[2016-12-26] MEDS: PIPERACILL/TAZOBAC IV 3.375 GM in DEXTROSE 5% 100ML 100 ML IV SCH ×3 (03:57→22:20)
[2016-12-26 04:25] VITALS: BP 138/54; PULSE 102; TEMP 37.4; O2SAT 91
[2016-12-26 07:39] VITALS: BP 164/61; PULSE 103; TEMP 37; O2SAT 91
[2016-12-26] MEDS: CLOBETASOL PROPIONATE 0.05% EXT SCH ×2 (09:00→20:57)
[2016-12-26] MEDS: METRONIDAZOLE VAG 0.75% PV SCH (09:00)
--- NOTE | 2016-12-26 09:02 | Surgery Progress Note ---
Surgery Progress Note Date of Service Dec 26, 2016. Subjective Post OP Day: 5 in with patient- Patient continuing to improve slowly. Reports that she threw up in the middle of the night due to acid reflux. Denies nausea currently. Does not feel hungry at this time. Denies pain or discomfort at this time. Patient reports that she was out of bed yesterday and in the chair for approximately 3 hours, which made her tired. Objective Vital Signs: Date Time Temp Pulse Resp B/P Pulse Ox O2 Delivery O2 Flow Rate FiO2 12/26/16 07:39 37.0 103 20 164/61 91 Room Air 12/26/16 04:25 37.4 102 18 138/54 91 Room Air 12/26/16 04:08 Room Air 12/26/16 00:01 Room Air 12/25/16 23:23 37.1 100 16 170/69 91 Room Air 12/25/16 20:00 Room Air 12/25/16 19:32 36.8 92 18 158/62 93 Room Air 12/25/16 16:00 Room Air 12/25/16 15:24 36.8 91 18 152/64 93 Room Air 12/25/16 12:00 Room Air 12/25/16 12:00 116 40 95 12/25/16 11:39 168/69 12/25/16 11:00 96 22 173/58 91 Room Air 12/25/16 11:00 36.6 96 24 173/58 91 Room Air 12/25/16 10:00 99 21 144/65 91 Room Air 12/25/16 09:00 90 24 150/61 91 Room Air General Appearance: no apparent distress Abdomen: soft, + pertinent finding (stoma viable/functioning with loose brown stool. ) Incision(s): clean, dry, intact Laboratory Results: Microbiology Results 12/25/16 Fungal Smear, Received Pending 12/25/16 Fungal Culture, Received Pending Assessment & Plan POD #5- doing well, more awake and more talkative this AM. Will order CBC with diff and CMP today. Will continue to monitor labs closely. Will re-consult Internal Medicine. Patient was seen by Infectious Disease who will continue to manage antibiotics. Encouraged patient to get out of bed again today. Patient will need to be seen by PT/OT with possible rehab after discharge. Will order Boost Breeze for protein supplementation. Will see how patient tolerates and then re-evaluate advancing diet. POD #4- overall doing well, awaiting return of bowel function. WiIll not advance diet until bowel function and nausea improve. Will recheck Hgb. PT eval. Discussed with family discharge planning. path report pending. POD #4- overall doing well, awaiting return of bowel function. WiIll not advance diet until bowel function and nausea improve. Will recheck Hgb. PT eval. Discussed with family discharge planning. path report pending.
[2016-12-26] MEDS: PENTOSAN POLYSULFATE SODIUM 100 MG CAP PO SCH ×2 (09:18→20:59)
[2016-12-26] MEDS: ENOXAPARIN 30 MG/0.3 ML SYR SQ SCH (09:19)
[2016-12-26 09:55] LABS: BASO % 0.1 %; BASO ABS # 0.01 K/uL (0-0.2); EOS % 0.3 %; HEMATOCRIT 26.4 % (37-47); IG% 0.7 %; LYMPH % 4.9 %; LYMPH ABS # 0.74 K/uL (1.2-3.4); MEAN CELL VOLUME 86.8 fL (80-100); MEAN CORPUSCULAR HEMOGLOBIN 29.3 pg (25-34); MEAN CORPUSCULAR HGB CONC 33.7 g/dl (32-36); MEAN PLATELET VOLUME 9.6 fL (7.4-10.4); MONO % 3.2 %; NEUT % 90.8 %; PLATELET COUNT 427 K/uL (130-400); RED BLOOD COUNT 3.04 M/uL (4.2-5.4); WHITE BLOOD COUNT 15.17 K/uL (4.8-10.8)
[2016-12-26 10:29] LABS: ALB/GLOB RATIO 0.3 (0.9-2); CREATININE 0.39 mg/dl (0.60-1.20); POTASSIUM 3.7 mmol/L (3.5-5.1)
[2016-12-26] MEDS: MENTHOL-ZINC OXIDE 360 APPLN/120 GM TUBE EXT SCH (10:31)
[2016-12-26 10:34] LABS: COMPLETE YES
[2016-12-26 10:37] LABS: CALCIUM 6.4 mg/dl (8.5-10.1)
[2016-12-26] MEDS: FLUTICASONE FUROATE-VILANTEROL 200/25 MCG INH IN SCH (10:42)
[2016-12-26] MEDS: PANTOprazole INJ 40 MG in SYRINGE 0 ML IV SCH (10:42)
[2016-12-26] MEDS: KETOTIFEN FUMARATE (ZADITOR) 0.025% 5 ML BTL OP SCH ×2 (10:43→20:58)
[2016-12-26] MEDS ORDERED: CASPOFUNGIN INJ 50 MG in SODIUM CHLORIDE 0.9% 250ML 250 ML IV SCH (11:00)
[2016-12-26 11:30] VITALS: BP 146/67; PULSE 67; TEMP 36.7; O2SAT 91
--- NOTE | 2016-12-26 15:19 | Infectious Disease Progress Nt ---
Progress Note Date of Service Dec 26, 2016. Subjective Pt evaluation today including: conversation w/ patient, physical exam, chart review, lab review, review of studies, conversation w/ customer service and sales consultant, review of inpatient medication list Had episode of vomiting last night which patient says was from reflux. Abdominal pain is slightly better. Remains afebrile. All Other Systems: Reviewed and Negative Medications Current Inpatient Medications Medications (Trade) Dose Ordered Sig/Aleksander Route Start Time Stop Time Status Last Admin Dose Admin Ondansetron HCl (Zofran Inj) 4 mg Q6H PRN IV 12/13/16 15:00 01/12/17 14:59 12/26/16 14:00 4 MG Albuterol (Ventolin Hfa Inhaler) 2 puffs Q4 PRN INH 12/13/16 15:00 01/12/17 14:59 Amlodipine Besylate (Norvasc Tab) 10 mg QAM PO 12/14/16 09:00 01/13/17 08:59 Future Hold 12/20/16 09:10 10 MG Fluticasone Propionate (Flonase Nasal [place]) 2 sprays DAILY PRN LARRY 12/13/16 15:00 01/12/17 14:59 Loratadine (Claritin Tab) 10 mg DAILY PRN PO 12/13/16 15:00 01/12/17 14:59 Pentosan Polysulfate Sodium (Elmiron) 100 mg BID PO 12/13/16 21:00 01/12/17 20:59 12/26/16 09:18 100 MG Metoclopramide HCl (Reglan Inj) 10 mg Q6H PRN IV. 12/13/16 19:15 01/12/17 19:14 12/20/16 05:36 10 MG Fluticasone/ Vilanterol (Breo Ellipta 200-25 Mcg/Inh) 1 inha DAILY IN 12/14/16 09:00 01/13/17 08:59 12/25/16 08:11 1 INHA Ketotifen Fumarate 1 drops 1 drops Q12 OP 12/14/16 09:00 01/13/17 08:59 12/25/16 19:41 1 DROPS Pantoprazole Sodium/Syringe (Protonix Inj/ Syringe) 10 ml @ 5 mls/min DAILY@11 IV 12/15/16 11:00 01/14/17 10:59 12/26/16 10:42 5 MLS/MIN Tramadol HCl 50 mg 50 mg Q4H PRN PO 12/16/16 08:15 01/15/17 08:14 12/17/16 00:52 50 MG Acetaminophen/ Empty Bag (Ofirmev IV/ Empty Iv Bag 100ml) 65 ml @ 260 mls/hr Q6H PRN IV 12/18/16 13:15 01/17/17 13:14 12/24/16 02:54 260 MLS/HR Hard Fat/ Phenylephrine (Anusol Supp) 1 ea BID PRN ID 12/19/16 09:00 01/18/17 08:59 12/19/16 21:04 1 EA Metronidazole HCl (Metrogel Vag Gel) 2 appln DAILY PV 12/20/16 09:00 12/30/16 08:59 12/25/16 08:19 2 APPLN Menthol/Zinc Oxide (Calmoseptine Oint) 1 appln DAILY EXT 12/20/16 09:00 01/19/17 08:59 12/26/16 10:31 1 APPLN Clobetasol Propionate (Clobetasol Propionate Oint) 1 appln BID EXT 12/19/16 21:00 01/18/17 20:59 12/25/16 19:41 1 APPLN Heparin Sodium (Porcine) (Heparin 10 Unit/ ml 5 ml Flush) 1 ml PRN PRN FLUSH 12/20/16 13:15 01/19/17 13:14 12/25/16 04:06 1 ML Piperacillin Sod/ Tazobactam Sod (Consult) 1 ea UD PRN N/A 12/20/16 15:45 01/19/17 15:44 Enoxaparin Sodium 30 mg 30 mg QAM SQ 12/22/16 09:00 01/21/17 08:59 12/26/16 09:19 30 MG Piperacillin Sod/ Tazobactam Sod/ Dextrose (Zosyn Iv/D5 100ml) 115 ml @ 28.75 mls/ hr Q8H IV 12/23/16 20:00 12/31/16 23:59 12/26/16 12:00 28.75 MLS/HR Hydrocortisone 1 appln 1 appln TID PRN EXT 12/24/16 10:45 01/23/17 10:44 Parenteral Electrolyte Solution (Normosol R) 1,000 ml @ 50 mls/hr Q20H IV 12/24/16 10:45 01/23/17 10:44 12/26/16 02:45 50 MLS/HR Naloxone HCl (Narcan Inj) 0.1 mg Q5M PRN IV 12/25/16 08:30 01/24/17 08:29 Hydromorphone HCl 25 mg 25 mg PRN PRN IV 12/25/16 08:30 01/08/17 08:29 12/25/16 10:20 25 MG Sodium Chloride 1,000 ml @ 15 mls/hr Q24H IV 12/25/16 08:30 01/24/17 08:29 12/25/16 10:14 15 MLS/HR Caspofungin/ Sodium Chloride (Cancidas Inj/ Nss 250ml) 260 ml @ 250 mls/hr Q24H IV 12/26/16 11:00 12/28/16 10:59 12/26/16 09:19 250 MLS/HR Enteral Nutritional Formula (Boost Breeze Nutritional Drink) 1 box BIDM PO 12/26/16 16:45 01/25/17 16:44 Objective Vital Signs Date Time Temp Pulse Resp B/P Pulse Ox O2 Delivery O2 Flow Rate FiO2 12/26/16 12:00 Room Air 12/26/16 11:30 36.7 67 18 146/67 91 Room Air 12/26/16 08:00 Room Air 12/26/16 07:39 37.0 103 20 164/61 91 Room Air 12/26/16 04:25 37.4 102 18 138/54 91 Room Air 12/26/16 04:08 Room Air 12/26/16 00:01 Room Air 12/25/16 23:23 37.1 100 16 170/69 91 Room Air 12/25/16 20:00 Room Air 12/25/16 19:32 36.8 92 18 158/62 93 Room Air 12/25/16 16:00 Room Air 12/25/16 15:24 36.8 91 18 152/64 93 Room Air Physical Exam General Appearance: no apparent distress, + pertinent finding ( chronically ill -appearing) Eyes: normal inspection, EOMI, sclerae normal ENT: normal ENT inspection, pharynx normal Neck: supple, thyroid normal, trachea midline Respiratory/Chest: lungs clear, normal breath sounds, no respiratory distress Cardiovascular: regular rate, rhythm, no gallop, no murmur Abdomen: normal bowel sounds, soft, no organomegaly, + distended Extremities: non-tender, no calf tenderness Neurologic/Psychiatric: alert, oriented x 3 Skin: normal color, warm/dry, no rash Lymphatic: no adenopathy Laboratory Results Last 24 Hours Test 12/26/16 09:23 White Blood Count 15.17 K/uL Red Blood Count 3.04 M/uL Hemoglobin 8.9 g/dL Hematocrit 26.4 % Mean Corpuscular Volume 86.8 fL Mean Corpuscular Hemoglobin 29.3 pg Mean Corpuscular Hemoglobin Concent 33.7 g/dl Platelet Count 427 K/uL Mean Platelet Volume 9.6 fL Neutrophils (%) (Auto) 90.8 % Lymphocytes (%) (Auto) 4.9 % Monocytes (%) (Auto) 3.2 % Eosinophils (%) (Auto) 0.3 % Basophils (%) (Auto) 0.1 % Neutrophils # (Auto) 13.78 K/uL Lymphocytes # (Auto) 0.74 K/uL Monocytes # (Auto) 0.49 K/uL Eosinophils # (Auto) 0.04 K/uL Basophils # (Auto) 0.01 K/uL RDW Standard Deviation 48.9 fL RDW Coefficient of Variation 15.1 % Immature Granulocyte % (Auto) 0.7 % Immature Granulocyte # (Auto) 0.11 K/uL Red Blood Cell Morphology Unremarkable Sodium Level 140 mmol/L Potassium Level 3.7 mmol/L Chloride Level 105 mmol/L Carbon Dioxide Level 25 mmol/L Anion Gap 10.0 mmol/L Blood Urea Nitrogen 17 mg/dl Creatinine 0.39 mg/dl Est Creatinine Clear Calc Drug Dose 103.1 ml/min Estimated GFR () 111.8 Estimated GFR (Non- 96.4 BUN/Creatinine Ratio 44.0 Random Glucose 88 mg/dl Calcium Level 6.4 mg/dl Total Bilirubin 0.4 mg/dl Aspartate Amino Transf (AST/SGOT) 18 U/L Alanine Aminotransferase (ALT/SGPT) 15 U/L Alkaline Phosphatase 115 U/L Total Protein 4.1 gm/dl Albumin 0.9 gm/dl Globulin 3.2 gm/dl Albumin/Globulin Ratio 0.3 Assessment and Plan Gram-negative sepsis from intra-abdominal infection with abscess formation from anastomotic leak following colectomy. blood cultures are positive for Serratia, operative cultures growing multiple organisms including E coli, Serratia, Enterococcus, and anaerobes. Patient should be continued on IV Zosyn. Length of IV antibiotics will be determined by clinical response. Will follow.
[2016-12-26 15:56] VITALS: BP 153/67; PULSE 89; TEMP 36.8; O2SAT 95
[2016-12-26] MEDS: SODIUM CHLORIDE 0.9% 1000ML 1,000 ML IV SCH (16:20)
[2016-12-26] MEDS: BOOST BREEZE NUTRITION DRINK 1 BOX PO SCH (17:09)
[2016-12-26] MEDS: METOCLOPRAMIDE HCL INJ 5 MG/ML 2 ML VIAL IV. PRN (17:56)
[2016-12-26 18:07] VITALS: BP 153/67; PULSE 89; TEMP 36.8; O2SAT 95
--- NOTE | 2016-12-26 19:48 | Hospitalist Progress Note ---
Hospitalist Progress Note Date of Service Dec 26, 2016. Subjective Pt evaluation today including: conversation w/ patient, conversation w/ family , physical exam PO Intake: patient complaint of reflux pain patient unable to eat because of severe reflux pain daughter is going to bring in her medication that works for her in the morning Medications Medications (Trade) Dose Ordered Sig/Aleksander Route Start Time Stop Time Status Last Admin Dose Admin Caspofungin/ Sodium Chloride (Cancidas Inj/ Nss 250ml) 260 ml @ 250 mls/hr Q24H IV 12/26/16 11:00 12/26/16 16:04 DC 12/26/16 09:19 250 MLS/HR Enteral Nutritional Formula (Boost Breeze Nutritional Drink) 1 box BIDM PO 12/26/16 16:45 01/25/17 16:44 12/26/16 17:09 1 BOX Objective Vital Signs Date Time Temp Pulse Resp B/P Pulse Ox O2 Delivery O2 Flow Rate FiO2 12/26/16 18:07 36.8 89 20 153/67 95 Room Air 12/26/16 16:00 Room Air 12/26/16 15:56 36.8 89 20 153/67 95 Room Air 12/26/16 12:00 Room Air 12/26/16 11:30 36.7 67 18 146/67 91 Room Air 12/26/16 08:00 Room Air 12/26/16 07:39 37.0 103 20 164/61 91 Room Air 12/26/16 04:25 37.4 102 18 138/54 91 Room Air 12/26/16 04:08 Room Air 12/26/16 00:01 Room Air 12/25/16 23:23 37.1 100 16 170/69 91 Room Air 12/25/16 20:00 Room Air Physical Exam General Appearance: no apparent distress Eyes: normal inspection ENT: hearing grossly normal Neck: supple Respiratory/Chest: lungs clear Cardiovascular: regular rate, rhythm Abdomen: soft Extremities: normal range of motion Laboratory Results Last 24 Hours Test 12/26/16 09:23 White Blood Count 15.17 K/uL Red Blood Count 3.04 M/uL Hemoglobin 8.9 g/dL Hematocrit 26.4 % Mean Corpuscular Volume 86.8 fL Mean Corpuscular Hemoglobin 29.3 pg Mean Corpuscular Hemoglobin Concent 33.7 g/dl Platelet Count 427 K/uL Mean Platelet Volume 9.6 fL Neutrophils (%) (Auto) 90.8 % Lymphocytes (%) (Auto) 4.9 % Monocytes (%) (Auto) 3.2 % Eosinophils (%) (Auto) 0.3 % Basophils (%) (Auto) 0.1 % Neutrophils # (Auto) 13.78 K/uL Lymphocytes # (Auto) 0.74 K/uL Monocytes # (Auto) 0.49 K/uL Eosinophils # (Auto) 0.04 K/uL Basophils # (Auto) 0.01 K/uL RDW Standard Deviation 48.9 fL RDW Coefficient of Variation 15.1 % Immature Granulocyte % (Auto) 0.7 % Immature Granulocyte # (Auto) 0.11 K/uL Red Blood Cell Morphology Unremarkable Sodium Level 140 mmol/L Potassium Level 3.7 mmol/L Chloride Level 105 mmol/L Carbon Dioxide Level 25 mmol/L Anion Gap 10.0 mmol/L Blood Urea Nitrogen 17 mg/dl Creatinine 0.39 mg/dl Est Creatinine Clear Calc Drug Dose 103.1 ml/min Estimated GFR () 111.8 Estimated GFR (Non- 96.4 BUN/Creatinine Ratio 44.0 Random Glucose 88 mg/dl Calcium Level 6.4 mg/dl Total Bilirubin 0.4 mg/dl Aspartate Amino Transf (AST/SGOT) 18 U/L Alanine Aminotransferase (ALT/SGPT) 15 U/L Alkaline Phosphatase 115 U/L Total Protein 4.1 gm/dl Albumin 0.9 gm/dl Globulin 3.2 gm/dl Albumin/Globulin Ratio 0.3 Assessment and Plan (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 (2) DVT prophylaxis Assessment & Plan: lovenox (3) Gram negative sepsis Assessment & Plan: continue zosyn Id help appreciated.
[2016-12-26 20:00] VITALS: BP 123/69; PULSE 104; TEMP 37.4; O2SAT 92
[2016-12-26] MEDS: METOCLOPRAMIDE HCL INJ 5 MG/ML 2 ML VIAL IV. SCH (23:39)
[2016-12-27] VITALS (7 sets, daily range): BP systolic 151–189; BP diastolic 62–71; PULSE 94–108; TEMP 36.5–37.1; O2SAT 93–97
[2016-12-27] MEDS: PIPERACILL/TAZOBAC IV 3.375 GM in DEXTROSE 5% 100ML 100 ML IV SCH ×3 (06:22→21:36)
[2016-12-27 06:44] LABS: HEMATOCRIT 27.7 % (37-47); MEAN CELL VOLUME 86.3 fL (80-100); MEAN CORPUSCULAR HGB CONC 33.6 g/dl (32-36); MEAN PLATELET VOLUME 9.6 fL (7.4-10.4); PLATELET COUNT 509 K/uL (130-400); RED BLOOD COUNT 3.21 M/uL (4.2-5.4); WHITE BLOOD COUNT 16.22 K/uL (4.8-10.8)
[2016-12-27] MEDS: BOOST BREEZE NUTRITION DRINK 1 BOX PO SCH ×2 (07:30→16:45)
[2016-12-27 08:26] LABS: CREATININE 0.47 mg/dl (0.60-1.20)
[2016-12-27] MEDS: SODIUM CHLORIDE 0.9% 1000ML 1,000 ML IV SCH ×2 (08:30→20:22)
[2016-12-27] MEDS: KETOTIFEN FUMARATE (ZADITOR) 0.025% 5 ML BTL OP SCH ×2 (08:40→20:19)
[2016-12-27] MEDS: FLUTICASONE FUROATE-VILANTEROL 200/25 MCG INH IN SCH (08:40)
[2016-12-27] MEDS: METOCLOPRAMIDE HCL INJ 5 MG/ML 2 ML VIAL IV. SCH ×3 (08:40→19:32)
[2016-12-27] MEDS: PENTOSAN POLYSULFATE SODIUM 100 MG CAP PO SCH ×2 (08:41→20:20)
[2016-12-27] MEDS: METRONIDAZOLE VAG 0.75% PV SCH (08:41)
[2016-12-27] MEDS: CLOBETASOL PROPIONATE 0.05% EXT SCH ×2 (08:41→20:19)
[2016-12-27] MEDS: ENOXAPARIN 30 MG/0.3 ML SYR SQ SCH (08:42)
[2016-12-27] MEDS: MENTHOL-ZINC OXIDE 360 APPLN/120 GM TUBE EXT SCH (08:43)
--- NOTE | 2016-12-27 09:03 | Surgery Progress Note ---
Surgery Progress Note Date of Service Dec 27, 2016. Subjective Post OP Day: 6 pt states and her states that she is slowly feeling better every day. still weak. some appetite now. c/o of acid reflux which she takes omeprazole and ranitidine at home. pain controlled. tolerating liquids. Objective Vital Signs: Date Time Temp Pulse Resp B/P Pulse Ox O2 Delivery O2 Flow Rate FiO2 12/27/16 07:42 36.7 94 20 189/70 94 Nasal Cannula 2.0 12/27/16 04:01 Room Air 12/27/16 03:53 36.8 108 16 163/68 94 Nasal Cannula 2.0 12/27/16 00:07 37.1 103 15 151/62 93 Nasal Cannula 2.0 12/27/16 00:01 Room Air 12/26/16 20:00 37.4 104 16 123/69 92 Room Air 12/26/16 20:00 Room Air 12/26/16 18:07 36.8 89 20 153/67 95 Room Air 12/26/16 16:00 Room Air 12/26/16 15:56 36.8 89 20 153/67 95 Room Air 12/26/16 12:00 Room Air 12/26/16 11:30 36.7 67 18 146/67 91 Room Air General Appearance: no apparent distress Abdomen: non distended, soft, + pertinent finding (stoma looks good/large amount of brown stool in bag. ) Incision(s): clean, dry, intact Extremities: normal inspection Laboratory Results: Results Past 24 Hours Test 12/26/16 09:23 12/27/16 06:17 Range/Units White Blood Count 15.17 16.22 4.8-10.8 K/uL Red Blood Count 3.04 3.21 4.2-5.4 M/uL Hemoglobin 8.9 9.3 12.0-16.0 g/dL Hematocrit 26.4 27.7 37-47 % Mean Corpuscular Volume 86.8 86.3 80-100 fL Mean Corpuscular Hemoglobin 29.3 29.0 25-34 pg Mean Corpuscular Hemoglobin Concent 33.7 33.6 32-36 g/dl Platelet Count 427 509 130-400 K/uL Mean Platelet Volume 9.6 9.6 7.4-10.4 fL Neutrophils (%) (Auto) 90.8 % Lymphocytes (%) (Auto) 4.9 % Monocytes (%) (Auto) 3.2 % Eosinophils (%) (Auto) 0.3 % Basophils (%) (Auto) 0.1 % Neutrophils # (Auto) 13.78 1.4-6.5 K/uL Lymphocytes # (Auto) 0.74 1.2-3.4 K/uL Monocytes # (Auto) 0.49 0.11-0.59 K/uL Eosinophils # (Auto) 0.04 0-0.5 K/uL Basophils # (Auto) 0.01 0-0.2 K/uL RDW Standard Deviation 48.9 46.8 36.4-46.3 fL RDW Coefficient of Variation 15.1 14.8 11.5-14.5 % Immature Granulocyte % (Auto) 0.7 % Immature Granulocyte # (Auto) 0.11 0.00-0.02 K/uL Red Blood Cell Morphology Unremarkable Sodium Level 140 136-145 mmol/L Potassium Level 3.7 3.5-5.1 mmol/L Chloride Level 105 98-107 mmol/L Carbon Dioxide Level 25 21-32 mmol/L Anion Gap 10.0 3-11 mmol/L Blood Urea Nitrogen 17 7-18 mg/dl Creatinine 0.39 0.47 0.60-1.20 mg/dl Est Creatinine Clear Calc Drug Dose 103.1 85.0 ml/min Estimated GFR () 111.8 105.1 Estimated GFR (Non- 96.4 90.7 BUN/Creatinine Ratio 44.0 10-20 Random Glucose 88 70-99 mg/dl Calcium Level 6.4 8.5-10.1 mg/dl Total Bilirubin 0.4 0.2-1 mg/dl Aspartate Amino Transf (AST/SGOT) 18 15-37 U/L Alanine Aminotransferase (ALT/SGPT) 15 12-78 U/L Alkaline Phosphatase 115 45-117 U/L Total Protein 4.1 6.4-8.2 gm/dl Albumin 0.9 3.4-5.0 gm/dl Globulin 3.2 2.5-4.0 gm/dl Albumin/Globulin Ratio 0.3 0.9-2 Assessment & Plan 12/27/16 continues to slowly improve quite weak wbc still elevated. afebrile. antibiotics per ID continue agressive PT/OT. will need Rehab prior to going home will slowly advance diet now that stoma is formally functioning. pt can have her home ranitidine that she is requesting 12/26/16 slow improvement. wbc still elevated. d/w Dr. Frost. will add antifungal ok to transfer from icu today will need aggressive pt/ot in upcoming days/weeks and will likely need rehab will slowly advance diet as she tolerates. 12/24/16 see below. pt continues to slowly improve now. FRANCINE's serous. +stool in colostomy. appreciate ICU input. increase activity. can d/c ngt and start clears soon hopefully transfer from ICU tomorrow. transverse colectomy colostomy/mucus fistula for anastomotic leak on TPN, Zosyn moderate NG output although some returning bowel function Anemia H&H stable after transfusion GABRIEL creatine back to baseline this AM 12/15/16 slow improvement. wbc still elevated. d/w Dr. Frost. will add antifungal ok to transfer from icu today will need aggressive pt/ot in upcoming days/weeks and will likely need rehab will slowly advance diet as she tolerates. 12/24/16 see below. pt continues to slowly improve now. FRANCINE's serous. +stool in colostomy. appreciate ICU input. increase activity. can d/c ngt and start clears soon hopefully transfer from ICU tomorrow. transverse colectomy colostomy/mucus fistula for anastomotic leak on TPN, Zosyn moderate NG output although some returning bowel function Anemia H&H stable after transfusion GABRIEL creatine back to baseline this AM
[2016-12-27] MEDS ORDERED: NURSING VERBAL MED ORDER ONE (10:15)
[2016-12-27] MEDS: PANTOprazole SOD 40 MG TAB PO SCH ×2 (10:29→20:20)
[2016-12-27] MEDS ORDERED: RANITIDINE HCL 150 MG TAB PO PRN (10:30)
--- NOTE | 2016-12-27 18:59 | Hospitalist Progress Note ---
Hospitalist Progress Note Date of Service Dec 27, 2016. Subjective patient feels better less gerd Medications Medications (Trade) Dose Ordered Sig/Aleksander Route Start Time Stop Time Status Last Admin Dose Admin Piperacillin Sod/ Tazobactam Sod/ Dextrose (Zosyn Iv/D5 100ml) 115 ml @ 28.75 mls/ hr Q8H IV 12/26/16 22:00 01/05/17 21:59 12/27/16 14:24 28.75 MLS/HR Metoclopramide HCl (Reglan Inj) 10 mg Q6H IV. 12/27/16 01:15 01/26/17 01:14 12/27/16 14:24 10 MG Pantoprazole Sodium (Protonix Tab) 40 mg BID PO 12/27/16 10:00 01/26/17 09:59 12/27/16 10:29 40 MG Objective Vital Signs Date Time Temp Pulse Resp B/P Pulse Ox O2 Delivery O2 Flow Rate FiO2 12/27/16 16:00 Room Air 12/27/16 15:30 36.8 102 20 185/66 97 Nasal Cannula 2.0 12/27/16 12:00 Room Air 12/27/16 10:58 36.5 94 20 170/68 94 Nasal Cannula 2.0 12/27/16 08:00 Nasal Cannula 2.0 12/27/16 07:42 36.7 94 20 189/70 94 Nasal Cannula 2.0 12/27/16 04:01 Room Air 12/27/16 03:53 36.8 108 16 163/68 94 Nasal Cannula 2.0 12/27/16 00:07 37.1 103 15 151/62 93 Nasal Cannula 2.0 12/27/16 00:01 Room Air 12/26/16 20:00 37.4 104 16 123/69 92 Room Air 12/26/16 20:00 Room Air Physical Exam General Appearance: WD/WN Neck: trachea midline Respiratory/Chest: chest non-tender Cardiovascular: regular rate, rhythm Abdomen: normal bowel sounds, + abnormal bowel sounds Extremities: normal range of motion Laboratory Results Last 24 Hours Test 12/27/16 06:17 White Blood Count 16.22 K/uL Red Blood Count 3.21 M/uL Hemoglobin 9.3 g/dL Hematocrit 27.7 % Mean Corpuscular Volume 86.3 fL Mean Corpuscular Hemoglobin 29.0 pg Mean Corpuscular Hemoglobin Concent 33.6 g/dl RDW Standard Deviation 46.8 fL RDW Coefficient of Variation 14.8 % Platelet Count 509 K/uL Mean Platelet Volume 9.6 fL Creatinine 0.47 mg/dl Est Creatinine Clear Calc Drug Dose 85.0 ml/min Estimated GFR () 105.1 Estimated GFR (Non- 90.7 Assessment and Plan (1) Colonic mass Assessment & Plan: s/p colostomy presently recovering will need rehab (2) DVT prophylaxis (3) Gram negative sepsis Assessment & Plan: resolved
[2016-12-27] MEDS: NORMOSOL R 1,000 ML IV SCH (20:18)
[2016-12-28] MEDS: METOCLOPRAMIDE HCL INJ 5 MG/ML 2 ML VIAL IV. SCH ×4 (01:07→19:36)
[2016-12-28 03:16] VITALS: BP 188/68; PULSE 102; TEMP 37; O2SAT 93
[2016-12-28] MEDS: PIPERACILL/TAZOBAC IV 3.375 GM in DEXTROSE 5% 100ML 100 ML IV SCH (05:26)
[2016-12-28] MEDS ORDERED: NURSING VERBAL MED ORDER ONE ×3 (07:45→15:15)
[2016-12-28 07:46] VITALS: BP 193/69; PULSE 103; TEMP 36.6; O2SAT 92
[2016-12-28] MEDS: PANTOprazole SOD 40 MG TAB PO SCH ×2 (08:38→21:00)
[2016-12-28] MEDS: MENTHOL-ZINC OXIDE 360 APPLN/120 GM TUBE EXT SCH (08:39)
[2016-12-28] MEDS: ENOXAPARIN 30 MG/0.3 ML SYR SQ SCH (08:39)
[2016-12-28] MEDS: PENTOSAN POLYSULFATE SODIUM 100 MG CAP PO SCH ×2 (08:39→21:01)
[2016-12-28] MEDS: KETOTIFEN FUMARATE (ZADITOR) 0.025% 5 ML BTL OP SCH ×2 (08:40→21:00)
[2016-12-28] MEDS: FLUTICASONE FUROATE-VILANTEROL 200/25 MCG INH IN SCH (08:40)
[2016-12-28] MEDS: BOOST BREEZE NUTRITION DRINK 1 BOX PO SCH ×2 (08:40→16:45)
[2016-12-28] MEDS: CLOBETASOL PROPIONATE 0.05% EXT SCH ×2 (08:40→21:04)
--- NOTE | 2016-12-28 08:48 | Surgery Progress Note ---
Surgery Progress Note Date of Service Dec 28, 2016. Subjective continues slow improvement tolerating diet much better. ate chicken/fruit last night. appears to have good appetite pain controlled. Objective Vital Signs: Date Time Temp Pulse Resp B/P Pulse Ox O2 Delivery O2 Flow Rate FiO2 12/28/16 07:46 36.6 103 20 193/69 92 2.0 12/28/16 04:02 Nasal Cannula 2.0 12/28/16 03:16 37.0 102 18 188/68 93 Nasal Cannula 2.0 12/28/16 00:02 Nasal Cannula 2.0 12/27/16 23:43 37.0 96 17 163/65 97 Nasal Cannula 2.0 12/27/16 20:00 Nasal Cannula 2.0 12/27/16 19:52 36.5 101 16 182/71 97 Nasal Cannula 2.0 12/27/16 16:00 Room Air 12/27/16 15:30 36.8 102 20 185/66 97 Nasal Cannula 2.0 12/27/16 12:00 Room Air 12/27/16 10:58 36.5 94 20 170/68 94 Nasal Cannula 2.0 General Appearance: no apparent distress Neck: supple Abdomen: soft, + pertinent finding (stoma viable/functioning) Incision(s): clean, dry, intact Assessment & Plan 12/28/16 continues to improve clinically lyric diet will need aggressive pt/ot. await PT rec's for d/c plans d/c hilario cont antibiotics. appreciate ID help change to oral pain meds Dr. Purvis covering for weekend. 12/27/16 continues to slowly improve quite weak wbc still elevated. afebrile. antibiotics per ID continue agressive PT/OT. will need Rehab prior to going home will slowly advance diet now that stoma is formally functioning. pt can have her home ranitidine that she is requesting 12/26/16 slow improvement. wbc still elevated. d/w Dr. Frost. will add antifungal ok to transfer from icu today will need aggressive pt/ot in upcoming days/weeks and will likely need rehab will slowly advance diet as she tolerates. 12/24/16 see below. pt continues to slowly improve now. FRANCINE's serous. +stool in colostomy. appreciate ICU input. increase activity. can d/c ngt and start clears soon hopefully transfer from ICU tomorrow. transverse colectomy colostomy/mucus fistula for anastomotic leak on TPN, Zosyn moderate NG output although some returning bowel function Anemia H&H stable after transfusion GABRIEL creatine back to baseline this AM 12/27/16 continues to slowly improve quite weak wbc still elevated. afebrile. antibiotics per ID continue agressive PT/OT. will need Rehab prior to going home will slowly advance diet now that stoma is formally functioning. pt can have her home ranitidine that she is requesting 12/26/16 slow improvement. wbc still elevated. d/w Dr. Frost. will add antifungal ok to transfer from icu today will need aggressive pt/ot in upcoming days/weeks and will likely need rehab will slowly advance diet as she tolerates. 12/24/16 see below. pt continues to slowly improve now. FRANCINE's serous. +stool in colostomy. appreciate ICU input. increase activity. can d/c ngt and start clears soon hopefully transfer from ICU tomorrow. transverse colectomy colostomy/mucus fistula for anastomotic leak on TPN, Zosyn moderate NG output although some returning bowel function Anemia H&H stable after transfusion GABRIEL creatine back to baseline this AM
--- NOTE | 2016-12-28 08:48 | Hospitalist Progress Note ---
Hospitalist Progress Note Date of Service Dec 28, 2016. Subjective Pt evaluation today including: conversation w/ patient, conversation w/ family , physical exam Pain: using certified alcohol and drug counselor patient with abdominal pain instucted her on use of certified alcohol and drug counselor will be switched orals later today All Other Systems: Reviewed and Negative Medications Medications (Trade) Dose Ordered Sig/Aleksander Route Start Time Stop Time Status Last Admin Dose Admin Pantoprazole Sodium (Protonix Tab) 40 mg BID PO 12/27/16 10:00 01/26/17 09:59 12/27/16 20:20 40 MG Objective Vital Signs Date Time Temp Pulse Resp B/P Pulse Ox O2 Delivery O2 Flow Rate FiO2 12/28/16 07:46 36.6 103 20 193/69 92 2.0 12/28/16 04:02 Nasal Cannula 2.0 12/28/16 03:16 37.0 102 18 188/68 93 Nasal Cannula 2.0 12/28/16 00:02 Nasal Cannula 2.0 12/27/16 23:43 37.0 96 17 163/65 97 Nasal Cannula 2.0 12/27/16 20:00 Nasal Cannula 2.0 12/27/16 19:52 36.5 101 16 182/71 97 Nasal Cannula 2.0 12/27/16 16:00 Room Air 12/27/16 15:30 36.8 102 20 185/66 97 Nasal Cannula 2.0 12/27/16 12:00 Room Air 12/27/16 10:58 36.5 94 20 170/68 94 Nasal Cannula 2.0 Physical Exam General Appearance: WD/WN, no apparent distress Eyes: normal inspection ENT: hearing grossly normal Neck: trachea midline Respiratory/Chest: lungs clear Cardiovascular: regular rate, rhythm Abdomen: normal bowel sounds Extremities: normal range of motion Laboratory Results Last Resulted CBC 12/27/16 06:17 Last Resulted BMP 12/26/16 09:23 12/27/16 06:17 Assessment and Plan (1) Colonic mass Assessment & Plan: s/p removal with post op dehis with gram negative sepsis currently stable on zosyn following clinical progress to determine length of therapy (2) DVT prophylaxis Assessment & Plan: lovenox (3) Gram negative sepsis Assessment & Plan: zosyn (4) HTN (hypertension) Assessment & Plan: will restart norvasc and tx patients pain
[2016-12-28] MEDS: METRONIDAZOLE VAG 0.75% PV SCH (08:51)
[2016-12-28 10:07] LABS: BASO % 0.1 %; BASO ABS # 0.02 K/uL (0-0.2); COMPLETE YES; EOS % 0.2 %; HEMATOCRIT 31.2 % (37-47); IG% 0.5 %; LYMPH % 4.6 %; LYMPH ABS # 0.87 K/uL (1.2-3.4); MEAN CELL VOLUME 87.9 fL (80-100); MEAN PLATELET VOLUME 9.7 fL (7.4-10.4); MONO % 3.4 %; NEUT % 91.2 %; PLATELET COUNT 686 K/uL (130-400); RED BLOOD COUNT 3.55 M/uL (4.2-5.4); WHITE BLOOD COUNT 18.95 K/uL (4.8-10.8)
[2016-12-28] MEDS: AMLODIPINE BESYLATE 5 MG TAB PO SCH (10:34)
--- NOTE | 2016-12-28 10:35 | Progress Note ---
Subjective Date of Service: Dec 28, 2016. Subjective Pt evaluation today including: conversation w/ patient, physical exam, chart review, lab review pt doing well this am. eating. Denies pain, denies f/c. tolerating zosyn. repeat blood cultures negative to date. has picc. wbc increased today. no sob, no cp. no n/v. pain controlled. all remaining ros reviewed and are negative. Problem List Medical Problems: (1) Urinary tract infection Status: Acute (2) Vaginal burning Status: Acute Objective Vital Signs Date Time Temp Pulse Resp B/P Pulse Ox O2 Delivery O2 Flow Rate FiO2 12/28/16 08:00 Room Air 12/28/16 07:46 36.6 103 20 193/69 92 2.0 12/28/16 04:02 Nasal Cannula 2.0 12/28/16 03:16 37.0 102 18 188/68 93 Nasal Cannula 2.0 12/28/16 00:02 Nasal Cannula 2.0 12/27/16 23:43 37.0 96 17 163/65 97 Nasal Cannula 2.0 12/27/16 20:00 Nasal Cannula 2.0 12/27/16 19:52 36.5 101 16 182/71 97 Nasal Cannula 2.0 12/27/16 16:00 Room Air 12/27/16 15:30 36.8 102 20 185/66 97 Nasal Cannula 2.0 12/27/16 12:00 Room Air 12/27/16 10:58 36.5 94 20 170/68 94 Nasal Cannula 2.0 Physical Exam General Appearance: WD/WN, no apparent distress Eyes: normal inspection Neck: supple Respiratory/Chest: lungs clear, normal breath sounds, no respiratory distress Cardiovascular: regular rate, rhythm, no edema Abdomen: soft Extremities: no pedal edema Neurologic/Psychiatric: alert, oriented x 3 Skin: normal color Laboratory Results Item Value Date Time Gram Stain - Final Complete 12/21/16 1622 Drainage-Deep Abdomen Blood Culture - Preliminary Resulted 12/23/16 0629 Blood NO GROWTH TO DATE. Blood Culture - Preliminary Resulted 12/23/16 0618 Blood NO GROWTH TO DATE. Blood Culture - Final Complete 12/20/16 1645 Blood Serratia Marcescens Last 24 Hours Test 12/28/16 09:24 White Blood Count 18.95 K/uL Red Blood Count 3.55 M/uL Hemoglobin 10.3 g/dL Hematocrit 31.2 % Mean Corpuscular Volume 87.9 fL Mean Corpuscular Hemoglobin 29.0 pg Mean Corpuscular Hemoglobin Concent 33.0 g/dl Platelet Count 686 K/uL Mean Platelet Volume 9.7 fL Neutrophils (%) (Auto) 91.2 % Lymphocytes (%) (Auto) 4.6 % Monocytes (%) (Auto) 3.4 % Eosinophils (%) (Auto) 0.2 % Basophils (%) (Auto) 0.1 % Neutrophils # (Auto) 17.29 K/uL Lymphocytes # (Auto) 0.87 K/uL Monocytes # (Auto) 0.65 K/uL Eosinophils # (Auto) 0.03 K/uL Basophils # (Auto) 0.02 K/uL RDW Standard Deviation 48.1 fL RDW Coefficient of Variation 14.7 % Immature Granulocyte % (Auto) 0.5 % Immature Granulocyte # (Auto) 0.09 K/uL Assessment and Plan (1) Gram negative sepsis Assessment & Plan: repeat blood cultures 12/23 ngtd. will need continued IV abx. (2) Intra-abdominal fluid collection Assessment & Plan: will change to ertapenem daily. will need min 14 days from first negative culture (12/23). will need repeat ct abd/pelvis prior to stopping abx, if collection persists, will need extended abx. will need ID follow up post d/c from hospital. would check weekly cbc, cmp while on abx. would continue course with IV ertapenem post d/c as well. (3) Leukocytosis Continued [facility] stay due to: multiple IV medications needed Discharge planning: uncertain
[2016-12-28] MEDS: TRAMADOL HCL 50 MG TAB PO PRN ×2 (10:37→16:27)
[2016-12-28 10:50] LABS: ALB/GLOB RATIO 0.3 (0.9-2); BUN/CREATININE RATIO 19.3 (10-20); CALCIUM 7.4 mg/dl (8.5-10.1); CREATININE 0.58 mg/dl (0.60-1.20); POTASSIUM 3.2 mmol/L (3.5-5.1)
[2016-12-28 11:32] VITALS: BP 160/71; PULSE 103; TEMP 36.8; O2SAT 94
[2016-12-28] MEDS ORDERED: POTASSIUM CHLORIDE 10 MEQ TABCR PO ONE (12:30)
[2016-12-28] MEDS: ERTAPENEM IV 1 GM in SODIUM CHLOR 0.9% AD-VAN 50ML 50 ML IV SCH (13:11)
[2016-12-28 15:45] VITALS: BP 150/67; PULSE 98; TEMP 36.5; O2SAT 95
[2016-12-28] MEDS: ACETAMINOPHEN IV 650 MG in EMPTY BAG 0 ML IV PRN (19:57)
[2016-12-28 20:00] VITALS: BP_SYST 146; BP_SYST 168; BP_DIAS 65; BP_DIAS 84; PULSE 101; PULSE 70; TEMP 36.9; TEMP 37; O2SAT 95; O2SAT 98
[2016-12-28 23:07] VITALS: BP 147/64; PULSE 98; TEMP 36.8; O2SAT 96
[2016-12-29] VITALS (8 sets, daily range): BP systolic 138–178; BP diastolic 51–67; PULSE 88–110; TEMP 36.5–37.1; O2SAT 94–97
[2016-12-29] MEDS: TRAMADOL HCL 50 MG TAB PO PRN ×3 (01:17→17:53)
[2016-12-29] MEDS: METOCLOPRAMIDE HCL INJ 5 MG/ML 2 ML VIAL IV. SCH ×4 (01:18→21:09)
[2016-12-29 06:17] LABS: BASO % 0.1 %; BASO ABS # 0.01 K/uL (0-0.2); COMPLETE YES; EOS % 0.4 %; HEMATOCRIT 30.3 % (37-47); IG% 0.4 %; LYMPH % 3.7 %; MEAN CELL VOLUME 87.8 fL (80-100); MEAN PLATELET VOLUME 9.4 fL (7.4-10.4); MONO % 3.3 %; NEUT % 92.1 %; PLATELET COUNT 560 K/uL (130-400); RED BLOOD COUNT 3.45 M/uL (4.2-5.4); WHITE BLOOD COUNT 16.13 K/uL (4.8-10.8)
[2016-12-29 06:38] LABS: BUN/CREATININE RATIO 22.8 (10-20); CALCIUM 7.3 mg/dl (8.5-10.1); CREATININE 0.49 mg/dl (0.60-1.20); POTASSIUM 3.6 mmol/L (3.5-5.1)
[2016-12-29 06:40] LABS: ALB/GLOB RATIO 0.3 (0.9-2)
--- NOTE | 2016-12-29 06:47 | Surgery Progress Note ---
Surgery Progress Note Date of Service Dec 29, 2016. Subjective + bowel movement, + pain controlled, No nausea, No vomiting pt is wide awake, tolerating diet wbc down some, now on Ertapenem Objective Vital Signs: Date Time Temp Pulse Resp B/P Pulse Ox O2 Delivery O2 Flow Rate FiO2 12/29/16 04:00 Nasal Cannula 2.0 12/29/16 03:52 36.9 90 17 178/51 96 Nasal Cannula 2.0 12/28/16 23:59 Nasal Cannula 2.0 12/28/16 23:07 36.8 98 17 147/64 96 Nasal Cannula 2.0 12/28/16 20:00 Nasal Cannula 2.0 12/28/16 20:00 37.0 101 18 146/65 95 Nasal Cannula 2.0 12/28/16 16:00 Room Air 12/28/16 15:45 36.5 98 20 150/67 95 Nasal Cannula 2.0 12/28/16 12:00 Room Air 12/28/16 11:32 36.8 103 20 160/71 94 2.0 12/28/16 08:00 Room Air 12/28/16 07:46 36.6 103 20 193/69 92 2.0 General Appearance: no apparent distress Respiratory/Chest: no respiratory distress Abdomen: non distended, soft Incision(s): intact Laboratory Results: Results Past 24 Hours Test 12/28/16 09:24 12/29/16 06:00 Range/Units White Blood Count 18.95 16.13 4.8-10.8 K/uL Red Blood Count 3.55 3.45 4.2-5.4 M/uL Hemoglobin 10.3 10.0 12.0-16.0 g/dL Hematocrit 31.2 30.3 37-47 % Mean Corpuscular Volume 87.9 87.8 80-100 fL Mean Corpuscular Hemoglobin 29.0 29.0 25-34 pg Mean Corpuscular Hemoglobin Concent 33.0 33.0 32-36 g/dl Platelet Count 686 560 130-400 K/uL Mean Platelet Volume 9.7 9.4 7.4-10.4 fL Neutrophils (%) (Auto) 91.2 92.1 % Lymphocytes (%) (Auto) 4.6 3.7 % Monocytes (%) (Auto) 3.4 3.3 % Eosinophils (%) (Auto) 0.2 0.4 % Basophils (%) (Auto) 0.1 0.1 % Neutrophils # (Auto) 17.29 14.86 1.4-6.5 K/uL Lymphocytes # (Auto) 0.87 0.60 1.2-3.4 K/uL Monocytes # (Auto) 0.65 0.54 0.11-0.59 K/uL Eosinophils # (Auto) 0.03 0.06 0-0.5 K/uL Basophils # (Auto) 0.02 0.01 0-0.2 K/uL RDW Standard Deviation 48.1 47.6 36.4-46.3 fL RDW Coefficient of Variation 14.7 14.7 11.5-14.5 % Immature Granulocyte % (Auto) 0.5 0.4 % Immature Granulocyte # (Auto) 0.09 0.06 0.00-0.02 K/uL Sodium Level 136 139 136-145 mmol/L Potassium Level 3.2 3.6 3.5-5.1 mmol/L Chloride Level 99 104 98-107 mmol/L Carbon Dioxide Level 27 29 21-32 mmol/L Anion Gap 10.0 6.0 3-11 mmol/L Blood Urea Nitrogen 11 11 7-18 mg/dl Creatinine 0.58 0.49 0.60-1.20 mg/dl Est Creatinine Clear Calc Drug Dose 68.8 81.4 ml/min Estimated GFR () 98.1 103.7 Estimated GFR (Non- 84.6 89.5 BUN/Creatinine Ratio 19.3 22.8 10-20 Random Glucose 229 93 70-99 mg/dl Calcium Level 7.4 7.3 8.5-10.1 mg/dl Total Bilirubin 0.5 0.3 0.2-1 mg/dl Aspartate Amino Transf (AST/SGOT) 17 16 15-37 U/L Alanine Aminotransferase (ALT/SGPT) 13 13 12-78 U/L Alkaline Phosphatase 87 77 45-117 U/L Total Protein 5.3 4.7 6.4-8.2 gm/dl Albumin 1.2 1.2 3.4-5.0 gm/dl Globulin 4.1 3.5 2.5-4.0 gm/dl Albumin/Globulin Ratio 0.3 0.3 0.9-2 Assessment & Plan 12/29/16- making slow progress, no acute changes. afeb, some decrease in wbc- on Ertapenem. weak- cont PT overall stable
[2016-12-29] MEDS: BOOST BREEZE NUTRITION DRINK 1 BOX PO SCH (07:37)
[2016-12-29] MEDS: CLOBETASOL PROPIONATE 0.05% EXT SCH ×2 (07:38→21:10)
[2016-12-29] MEDS: MENTHOL-ZINC OXIDE 360 APPLN/120 GM TUBE EXT SCH (07:38)
[2016-12-29] MEDS: PANTOprazole SOD 40 MG TAB PO SCH ×2 (07:40→21:09)
[2016-12-29] MEDS: PENTOSAN POLYSULFATE SODIUM 100 MG CAP PO SCH ×2 (07:41→21:09)
[2016-12-29] MEDS: FLUTICASONE FUROATE-VILANTEROL 200/25 MCG INH IN SCH (07:41)
[2016-12-29] MEDS: AMLODIPINE BESYLATE 5 MG TAB PO SCH (07:42)
[2016-12-29] MEDS: METRONIDAZOLE VAG 0.75% PV SCH (07:43)
[2016-12-29] MEDS: ENOXAPARIN 30 MG/0.3 ML SYR SQ SCH (07:43)
[2016-12-29] MEDS: KETOTIFEN FUMARATE (ZADITOR) 0.025% 5 ML BTL OP SCH ×2 (08:55→21:09)
[2016-12-29] MEDS: ERTAPENEM IV 1 GM in SODIUM CHLOR 0.9% AD-VAN 50ML 50 ML IV SCH (10:55)
[2016-12-29] MEDS ORDERED: NURSING VERBAL MED ORDER ONE (12:45)
[2016-12-29] MEDS: BOOST VANILLA PO SCH ×2 (16:51)
--- NOTE | 2016-12-29 18:54 | Hospitalist Progress Note ---
Hospitalist Progress Note Date of Service Dec 29, 2016. Subjective Pain: 0 no complaints Objective Vital Signs Date Time Temp Pulse Resp B/P Pulse Ox O2 Delivery O2 Flow Rate FiO2 12/29/16 16:00 Nasal Cannula 2.0 12/29/16 15:54 36.5 104 18 148/57 94 Room Air 12/29/16 12:00 Nasal Cannula 2.0 12/29/16 11:34 36.7 100 20 138/52 95 Nasal Cannula 2.0 12/29/16 08:00 Nasal Cannula 2.0 12/29/16 07:45 36.5 106 22 159/67 95 Nasal Cannula 2.0 12/29/16 04:00 Nasal Cannula 2.0 12/29/16 03:52 36.9 90 17 178/51 96 Nasal Cannula 2.0 12/28/16 23:59 Nasal Cannula 2.0 12/28/16 23:07 36.8 98 17 147/64 96 Nasal Cannula 2.0 12/28/16 20:00 Nasal Cannula 2.0 12/28/16 20:00 37.0 101 18 146/65 95 Nasal Cannula 2.0 Physical Exam General Appearance: no apparent distress ENT: hearing grossly normal Respiratory/Chest: lungs clear Cardiovascular: regular rate, rhythm Laboratory Results Last 24 Hours Test 12/29/16 06:00 White Blood Count 16.13 K/uL Red Blood Count 3.45 M/uL Hemoglobin 10.0 g/dL Hematocrit 30.3 % Mean Corpuscular Volume 87.8 fL Mean Corpuscular Hemoglobin 29.0 pg Mean Corpuscular Hemoglobin Concent 33.0 g/dl Platelet Count 560 K/uL Mean Platelet Volume 9.4 fL Neutrophils (%) (Auto) 92.1 % Lymphocytes (%) (Auto) 3.7 % Monocytes (%) (Auto) 3.3 % Eosinophils (%) (Auto) 0.4 % Basophils (%) (Auto) 0.1 % Neutrophils # (Auto) 14.86 K/uL Lymphocytes # (Auto) 0.60 K/uL Monocytes # (Auto) 0.54 K/uL Eosinophils # (Auto) 0.06 K/uL Basophils # (Auto) 0.01 K/uL RDW Standard Deviation 47.6 fL RDW Coefficient of Variation 14.7 % Immature Granulocyte % (Auto) 0.4 % Immature Granulocyte # (Auto) 0.06 K/uL Sodium Level 139 mmol/L Potassium Level 3.6 mmol/L Chloride Level 104 mmol/L Carbon Dioxide Level 29 mmol/L Anion Gap 6.0 mmol/L Blood Urea Nitrogen 11 mg/dl Creatinine 0.49 mg/dl Est Creatinine Clear Calc Drug Dose 81.4 ml/min Estimated GFR () 103.7 Estimated GFR (Non- 89.5 BUN/Creatinine Ratio 22.8 Random Glucose 93 mg/dl Calcium Level 7.3 mg/dl Total Bilirubin 0.3 mg/dl Aspartate Amino Transf (AST/SGOT) 16 U/L Alanine Aminotransferase (ALT/SGPT) 13 U/L Alkaline Phosphatase 77 U/L Total Protein 4.7 gm/dl Albumin 1.2 gm/dl Globulin 3.5 gm/dl Albumin/Globulin Ratio 0.3 Assessment and Plan (1) Colonic mass Assessment & Plan: Clinically improving continue ertepenum (2) DVT prophylaxis Assessment & Plan: lovenox (3) Gram negative sepsis Assessment & Plan: resolved (4) HTN (hypertension)
[2016-12-30] VITALS (9 sets, daily range): BP systolic 146–155; BP diastolic 64–74; PULSE 63–106; TEMP 36.2–36.9; O2SAT 89–97
[2016-12-30] MEDS: METOCLOPRAMIDE HCL INJ 5 MG/ML 2 ML VIAL IV. SCH ×5 (00:58→23:59)
[2016-12-30 06:24] LABS: HEMATOCRIT 28.4 % (37-47); MEAN CELL VOLUME 86.3 fL (80-100); MEAN CORPUSCULAR HEMOGLOBIN 28.9 pg (25-34); MEAN CORPUSCULAR HGB CONC 33.5 g/dl (32-36); MEAN PLATELET VOLUME 9.4 fL (7.4-10.4); PLATELET COUNT 545 K/uL (130-400); RED BLOOD COUNT 3.29 M/uL (4.2-5.4)
[2016-12-30 06:43] LABS: CREATININE 0.42 mg/dl (0.60-1.20)
--- NOTE | 2016-12-30 07:05 | Surgery Progress Note ---
Surgery Progress Note Date of Service Dec 30, 2016. Subjective awake, alert, pain controlled, occasional ectopy tolerating diet, stoma functioning, weak but walking some (PT ongoing) Objective Vital Signs: Date Time Temp Pulse Resp B/P Pulse Ox O2 Delivery O2 Flow Rate FiO2 12/30/16 04:00 36.9 93 16 149/68 97 Nasal Cannula 2.0 12/30/16 04:00 97 Nasal Cannula 2.0 12/29/16 23:59 97 Nasal Cannula 2.0 12/29/16 23:05 37.1 110 18 167/58 97 Nasal Cannula 2.0 12/29/16 20:04 37.0 88 20 152/65 96 Nasal Cannula 2.0 12/29/16 20:00 94 Nasal Cannula 2.0 12/29/16 16:00 Nasal Cannula 2.0 12/29/16 15:54 36.5 104 18 148/57 94 Room Air 12/29/16 12:00 Nasal Cannula 2.0 12/29/16 11:34 36.7 100 20 138/52 95 Nasal Cannula 2.0 12/29/16 08:00 Nasal Cannula 2.0 12/29/16 07:45 36.5 106 22 159/67 95 Nasal Cannula 2.0 General Appearance: no apparent distress Respiratory/Chest: no respiratory distress Abdomen: non distended, soft Incision(s): intact Laboratory Results: Results Past 24 Hours Test 12/30/16 05:50 Range/Units White Blood Count 14.40 4.8-10.8 K/uL Red Blood Count 3.29 4.2-5.4 M/uL Hemoglobin 9.5 12.0-16.0 g/dL Hematocrit 28.4 37-47 % Mean Corpuscular Volume 86.3 80-100 fL Mean Corpuscular Hemoglobin 28.9 25-34 pg Mean Corpuscular Hemoglobin Concent 33.5 32-36 g/dl RDW Standard Deviation 45.8 36.4-46.3 fL RDW Coefficient of Variation 14.6 11.5-14.5 % Platelet Count 545 130-400 K/uL Mean Platelet Volume 9.4 7.4-10.4 fL Creatinine 0.42 0.60-1.20 mg/dl Est Creatinine Clear Calc Drug Dose 94.2 ml/min Estimated GFR () 109.1 Estimated GFR (Non- 94.1 Assessment & Plan 12/30/16- consider regular floor today, cont to encourage ambulation. cont atbx, wound care. will need rehab- possibly later in week 12/29/16- making slow progress, no acute changes. afeb, some decrease in wbc- on Ertapenem. weak- cont PT overall stable 12/29/16- making slow progress, no acute changes. afeb, some decrease in wbc- on Ertapenem. weak- cont PT overall stable
[2016-12-30] MEDS: PANTOprazole SOD 40 MG TAB PO SCH ×2 (07:47→20:51)
[2016-12-30] MEDS: BOOST VANILLA PO SCH ×4 (07:47→18:08)
[2016-12-30] MEDS: TRAMADOL HCL 50 MG TAB PO PRN ×3 (07:47→23:12)
[2016-12-30] MEDS: ENOXAPARIN 30 MG/0.3 ML SYR SQ SCH (07:48)
[2016-12-30] MEDS: CLOBETASOL PROPIONATE 0.05% EXT SCH ×2 (07:48→20:52)
[2016-12-30] MEDS: MENTHOL-ZINC OXIDE 360 APPLN/120 GM TUBE EXT SCH (07:48)
[2016-12-30] MEDS: AMLODIPINE BESYLATE 5 MG TAB PO SCH (07:48)
[2016-12-30] MEDS: FLUTICASONE FUROATE-VILANTEROL 200/25 MCG INH IN SCH (07:49)
[2016-12-30] MEDS: PENTOSAN POLYSULFATE SODIUM 100 MG CAP PO SCH ×2 (07:49→20:51)
[2016-12-30] MEDS: KETOTIFEN FUMARATE (ZADITOR) 0.025% 5 ML BTL OP SCH ×2 (07:49→20:52)
[2016-12-30 08:58] LABS: FERRITIN 146.2 ng/ml (8.0-388.0); THYROID STIMULATING HORMONE 1.89 uIu/ml (0.300-4.500)
[2016-12-30] MEDS: FERROUS SULFATE 325 MG TAB PO SCH ×2 (09:06→18:02)
[2016-12-30] MEDS: CEROVITE ADV FORMULA TAB PO SCH (09:06)
[2016-12-30] MEDS: ERTAPENEM IV 1 GM in SODIUM CHLOR 0.9% AD-VAN 50ML 50 ML IV SCH (12:14)
[2016-12-30] MEDS ORDERED: POTASSIUM CHLORIDE 10 MEQ TABCR PO STA (14:12)
[2016-12-30] MEDS ORDERED: MAGNESIUM OXIDE 400 MG TAB PO ONE (14:15)
[2016-12-30] MEDS ORDERED: FUROSEMIDE 20 MG TAB PO ONE (14:15)
--- NOTE | 2016-12-30 17:53 | Progress Note ---
Subjective Date of Service: Dec 30, 2016. Subjective Pt evaluation today including: conversation w/ patient, physical exam, chart review, lab review, review of studies (most recent cxr), conversation w/ foreign legal consultant (gen surg - Dr. Purvis), review of inpatient medication list Pain: denies cp, abd pain during the visit PO Intake: fair Voiding: no voiding problems Patient states she is "doing ok" during the visit. Is very tired. States that when she ambulates her "heart pounds." She has mild dyspnea with ambulation and feels very weak during any activity. Denies orthopnea. No cough. She has required oxygen most of her stay; denies prior h/o lung disease or CV disease that would require O2. Problem List Medical Problems: (1) Urinary tract infection Status: Acute (2) Vaginal burning Status: Acute Review of Systems Constitutional: + fatigue, No fever Respiratory: + dyspnea on exertion Cardiac: + edema, No chest pain, No orthopnea Abdomen: No nausea, No pain, No vomiting Objective Vital Signs Date Time Temp Pulse Resp B/P Pulse Ox O2 Delivery O2 Flow Rate FiO2 12/30/16 16:00 92 Nasal Cannula 2.0 12/30/16 15:42 36.3 92 16 153/74 91 Room Air 12/30/16 14:24 89 Room Air 12/30/16 14:24 96 Nasal Cannula 2.0 12/30/16 14:12 20 90 Room Air 12/30/16 09:20 Nasal Cannula 2.0 12/30/16 09:20 36.2 63 16 146/72 92 Nasal Cannula 2.0 12/30/16 08:00 Nasal Cannula 2.0 12/30/16 07:31 36.9 94 22 155/65 90 Nasal Cannula 2.0 12/30/16 04:00 36.9 93 16 149/68 97 Nasal Cannula 2.0 12/30/16 04:00 97 Nasal Cannula 2.0 12/29/16 23:59 97 Nasal Cannula 2.0 12/29/16 23:05 37.1 110 18 167/58 97 Nasal Cannula 2.0 12/29/16 20:04 37.0 88 20 152/65 96 Nasal Cannula 2.0 12/29/16 20:00 94 Nasal Cannula 2.0 Physical Exam General Appearance: no apparent distress, + pertinent finding (looks tired) ENT: pharynx normal Neck: no JVD Respiratory/Chest: no respiratory distress, no accessory muscle use, + decreased breath sounds (bases), + pertinent finding (dullness to percussion over the bases) Cardiovascular: no murmur, + tachycardia, + pertinent finding (irregular - extra beats) Abdomen: normal bowel sounds, non tender, no organomegaly, + distended, + pertinent finding (large dressing in place - central abdomen; stoma patent ) Extremities: + pedal edema, + swelling (3+ pitting edema b/l) Neurologic/Psychiatric: alert, + depressed affect Skin: + pallor, + pertinent finding (PICC line, RUE, clean with no erythema ) Laboratory Results Last 24 Hours Test 12/30/16 05:50 12/30/16 09:15 White Blood Count 14.40 K/uL Red Blood Count 3.29 M/uL Hemoglobin 9.5 g/dL Hematocrit 28.4 % Mean Corpuscular Volume 86.3 fL Mean Corpuscular Hemoglobin 28.9 pg Mean Corpuscular Hemoglobin Concent 33.5 g/dl RDW Standard Deviation 45.8 fL RDW Coefficient of Variation 14.6 % Platelet Count 545 K/uL Mean Platelet Volume 9.4 fL Creatinine 0.42 mg/dl Est Creatinine Clear Calc Drug Dose 94.2 ml/min Estimated GFR () 109.1 Estimated GFR (Non- 94.1 Ferritin 146.2 ng/ml Thyroid Stimulating Hormone (TSH) 1.890 uIu/ml Vitamin B12 Level 605 pg/mL 25-Hydroxy Vitamin D Total 5.1 ng/ml Folate 4.75 ng/mL Assessment and Plan (1) Colonic mass (2) DVT prophylaxis (3) Gram negative sepsis (4) HTN (hypertension) 86yo female with: 1. colon cancer - POD #17, s/p transverse colectomy with end-to-end anastomosis. POD #9, s/p ex lap with takedown of colonic anastomosis, partial colectomy, colostomy/mucous fistula creation & abdominal wash-out. Defer management to gen surg. 2. sepsis/bacteremia 2nd to serratia from intra-abdominal abscess/infection - will need 14-day course of IV ertapenem from the date of last negative blood cx (12/23/16). ID following and managing. Has RUE PICC in place. 3. severe protein calorie malnutrition with albumin of 1.2 - on boost supplements, dietary following; add MVI with minerals. Checked b12, folic acid, vit D today - see below. TSH was normal today. 4. folate deficiency - start folic acid 1mg daily. 5. vitamin D deficiency - start ergocalciferol 50,000 units twice weekly x 8 weeks. 6. severe edema b/l legs - likely due to #3 / severe hypoalbuminemia; however, in light of prolonged hospital stay, surgery, and immobility - check dopplers to r/o DVT. 7. volume overload - has pleural effusions on exam/cxr along with peripheral edema and is 9+ liters to date. Lasix 20mg po x 1 and reassess response in AM. Mag/K oral supplement with the lasix. Volume overload likely due to severe hypoalbuminemia. BMP in am. 8. hypoxia - has had ongoing O2 requirement since admission. most recent cxr with effusions/edema. hypoxia certainly could be due to these issues; cannot rule out PE either. dopplers of legs to r/o DVT; consider CTA chest. lasix today. wean o2 as tolerated. 9. DVT proph - lovenox currently ordered as 30mg. Since it was ordered last her CrCl has improved; will increase to 40mg once daily. 10. acute kidney injury - resolved. will continue to follow Continued [facility] stay due to: multiple IV medications needed Discharge planning: uncertain
--- NOTE | 2016-12-30 18:21 | DIAGNOSTIC IMAGING REPORT ---
ULTRASOUND BILATERAL LOWER EXTREMITY VENOUS CLINICAL HISTORY: Lower extremity edema. COMPARISON STUDY: No priors. TECHNIQUE: Real-time, grayscale, and color Doppler sonography of the deep veins of the right and left lower extremity was performed from the inguinal crease to the calf. Compression and augmentation were utilized. FINDINGS: There is no sonographic evidence of deep venous thrombosis identified in the right or left lower extremity. The common femoral, superficial femoral, and popliteal veins are patent and normally compressible bilaterally. The greater saphenous vein and the profunda femoris vein at the junction with the common femoral vein are clear in both legs. The visualized calf veins are patent bilaterally. IMPRESSION: There is no sonographic evidence of deep venous thrombosis identified in the right or left lower extremity. Electronically signed by: Chadd Barry M.D. 12/30/2016 6:19 PM Dictated Date/Time: 12/30/2016 6:19 PM
[2016-12-30] MEDS: ERGOCALCIFEROL 50,000 INTER.UNIT CAP PO SCH (20:52)
[2016-12-31] VITALS (7 sets, daily range): BP systolic 131–184; BP diastolic 53–77; PULSE 98–119; TEMP 36.6–36.7; O2SAT 86–97
[2016-12-31] MEDS: METOCLOPRAMIDE HCL INJ 5 MG/ML 2 ML VIAL IV. SCH ×3 (06:08→20:40)
[2016-12-31 06:38] LABS: BUN/CREATININE RATIO 18.9 (10-20); CALCIUM 7.4 mg/dl (8.5-10.1); CREATININE 0.51 mg/dl (0.60-1.20); MAGNESIUM 1.5 mg/dl (1.8-2.4); POTASSIUM 3.3 mmol/L (3.5-5.1)
[2016-12-31] MEDS: ENOXAPARIN 40 MG/0.4 ML SYR SQ SCH (08:46)
[2016-12-31] MEDS: PANTOprazole SOD 40 MG TAB PO SCH ×2 (08:47→20:41)
[2016-12-31] MEDS: AMLODIPINE BESYLATE 5 MG TAB PO SCH (08:48)
[2016-12-31] MEDS: FERROUS SULFATE 325 MG TAB PO SCH ×2 (08:49→17:35)
[2016-12-31] MEDS: CEROVITE ADV FORMULA TAB PO SCH (08:49)
--- NOTE | 2016-12-31 08:49 | Surgery Progress Note ---
Surgery Progress Note Date of Service Dec 31, 2016. Subjective continues to slowly improve. no more n/v. tolerating diet pain controlled. Objective Vital Signs: Date Time Temp Pulse Resp B/P Pulse Ox O2 Delivery O2 Flow Rate FiO2 12/31/16 08:36 106 96 Room Air 12/31/16 07:16 36.6 119 16 147/61 90 Room Air 12/30/16 23:30 36.9 106 16 154/64 92 Nasal Cannula 2.0 12/30/16 20:30 36.7 105 16 146/66 92 Nasal Cannula 2.0 12/30/16 19:25 Nasal Cannula 12/30/16 16:00 92 Nasal Cannula 2.0 12/30/16 15:42 36.3 92 16 153/74 91 Room Air 12/30/16 14:24 89 Room Air 12/30/16 14:24 96 Nasal Cannula 2.0 12/30/16 14:12 20 90 Room Air 12/30/16 09:20 Nasal Cannula 2.0 12/30/16 09:20 36.2 63 16 146/72 92 Nasal Cannula 2.0 Abdomen: soft, + pertinent finding (stoma viable/functioning. ) Incision(s): findings (no erythema but small amount of purulent drainage from inferior pole. no warmth) Laboratory Results: Results Past 24 Hours Test 12/30/16 09:15 12/31/16 05:30 Range/Units Vitamin B12 Level 605 211-911 pg/mL 25-Hydroxy Vitamin D Total 5.1 30-100 ng/ml Folate 4.75 >5.38 ng/mL Sodium Level 140 136-145 mmol/L Potassium Level 3.3 3.5-5.1 mmol/L Chloride Level 103 98-107 mmol/L Carbon Dioxide Level 29 21-32 mmol/L Anion Gap 8.0 3-11 mmol/L Blood Urea Nitrogen 10 7-18 mg/dl Creatinine 0.51 0.60-1.20 mg/dl Est Creatinine Clear Calc Drug Dose 77.6 ml/min Estimated GFR () 102.3 Estimated GFR (Non- 88.3 BUN/Creatinine Ratio 18.9 10-20 Random Glucose 91 70-99 mg/dl Calcium Level 7.4 8.5-10.1 mg/dl Magnesium Level 1.5 1.8-2.4 mg/dl Assessment & Plan 12/31/16 continued improvement will remove bottom 2-3 cristine and irrigate/pack wbc slowly improving d/c planning....will d/w soc services, family and pt regarding [facility] 12/28/16 continues to improve clinically lyric diet will need aggressive pt/ot. await PT rec's for d/c plans d/c hilario cont antibiotics. appreciate ID help change to oral pain meds Dr. Purvis covering for weekend. 12/27/16 continues to slowly improve quite weak wbc still elevated. afebrile. antibiotics per ID continue agressive PT/OT. will need Rehab prior to going home will slowly advance diet now that stoma is formally functioning. pt can have her home ranitidine that she is requesting 12/26/16 slow improvement. wbc still elevated. d/w Dr. Frost. will add antifungal ok to transfer from icu today will need aggressive pt/ot in upcoming days/weeks and will likely need rehab will slowly advance diet as she tolerates. 12/24/16 see below. pt continues to slowly improve now. FRANCINE's serous. +stool in colostomy. appreciate ICU input. increase activity. can d/c ngt and start clears soon hopefully transfer from ICU tomorrow. transverse colectomy colostomy/mucus fistula for anastomotic leak on TPN, Zosyn moderate NG output although some returning bowel function Anemia H&H stable after transfusion GABRIEL creatine back to baseline this AM 12/28/16 continues to improve clinically lyric diet will need aggressive pt/ot. await PT rec's for d/c plans d/c hilario cont antibiotics. appreciate ID help change to oral pain meds Dr. Purvis covering for weekend. 12/27/16 continues to slowly improve quite weak wbc still elevated. afebrile. antibiotics per ID continue agressive PT/OT. will need Rehab prior to going home will slowly advance diet now that stoma is formally functioning. pt can have her home ranitidine that she is requesting 12/26/16 slow improvement. wbc still elevated. d/w Dr. Frost. will add antifungal ok to transfer from icu today will need aggressive pt/ot in upcoming days/weeks and will likely need rehab will slowly advance diet as she tolerates. 12/24/16 see below. pt continues to slowly improve now. FRANCINE's serous. +stool in colostomy. appreciate ICU input. increase activity. can d/c ngt and start clears soon hopefully transfer from ICU tomorrow. transverse colectomy colostomy/mucus fistula for anastomotic leak on TPN, Zosyn moderate NG output although some returning bowel function Anemia H&H stable after transfusion GABRIEL creatine back to baseline this AM
[2016-12-31] MEDS: PENTOSAN POLYSULFATE SODIUM 100 MG CAP PO SCH ×2 (08:50→20:41)
[2016-12-31] MEDS: KETOTIFEN FUMARATE (ZADITOR) 0.025% 5 ML BTL OP SCH ×2 (08:50→20:38)
[2016-12-31] MEDS: FLUTICASONE FUROATE-VILANTEROL 200/25 MCG INH IN SCH (08:51)
[2016-12-31] MEDS: CLOBETASOL PROPIONATE 0.05% EXT SCH ×2 (08:52→20:38)
[2016-12-31] MEDS: MENTHOL-ZINC OXIDE 360 APPLN/120 GM TUBE EXT SCH (08:53)
[2016-12-31] MEDS: METRONIDAZOLE VAG 0.75% PV SCH (09:06)
[2016-12-31] MEDS: BOOST VANILLA PO SCH ×4 (09:28→17:35)
[2016-12-31] MEDS ORDERED: MAGNESIUM SULFATE 1GM / D5W 1 GM in PREMIXED IN D5W 100 ML IV ONE (09:30)
[2016-12-31] MEDS: ERTAPENEM IV 1 GM in SODIUM CHLOR 0.9% AD-VAN 50ML 50 ML IV SCH (12:30)
--- NOTE | 2016-12-31 17:27 | Hospitalist Progress Note ---
Hospitalist Progress Note Date of Service Dec 31, 2016. Subjective Pt evaluation today including: conversation w/ patient, conversation w/ family Pain: 0 Patient with no complaints All Other Systems: Reviewed and Negative Medications Medications (Trade) Dose Ordered Sig/Aleksander Route Start Time Stop Time Status Last Admin Dose Admin Ergocalciferol (Vitamin D Cap) 50,000 interunit SuWe@2100 PO 12/30/16 21:00 01/29/17 20:59 12/30/16 20:52 50,000 INTERUNIT Enoxaparin Sodium 40 mg 40 mg QAM SQ 12/31/16 09:00 01/30/17 08:59 12/31/16 08:46 40 MG Magnesium Sulfate/ Prmx (Magnesium Sulfate/Premixed D5W) 100 ml @ 100 mls/hr 0930 ONCE IV 12/31/16 09:30 12/31/16 10:29 DC 12/31/16 09:28 100 MLS/HR Metronidazole HCl (Metrogel Vag Gel) 2 appln DAILY PV 12/31/16 09:30 01/30/17 09:29 12/31/16 09:06 2 APPLN Objective Vital Signs Date Time Temp Pulse Resp B/P Pulse Ox O2 Delivery O2 Flow Rate FiO2 12/31/16 15:28 36.7 107 18 131/53 96 Room Air 12/31/16 14:21 94 Nasal Cannula 2.0 12/31/16 14:20 98 147/77 86 Room Air 12/31/16 14:02 110 94 12/31/16 08:36 106 96 Room Air 12/31/16 07:35 Nasal Cannula 2.0 12/31/16 07:16 36.6 119 16 147/61 90 Room Air 12/30/16 23:30 36.9 106 16 154/64 92 Nasal Cannula 2.0 12/30/16 20:30 36.7 105 16 146/66 92 Nasal Cannula 2.0 12/30/16 19:25 Nasal Cannula Physical Exam General Appearance: WD/WN, no apparent distress Eyes: normal inspection ENT: hearing grossly normal Respiratory/Chest: chest non-tender Cardiovascular: regular rate, rhythm Abdomen: normal bowel sounds Extremities: normal range of motion Laboratory Results Last 24 Hours Test 12/31/16 05:30 12/31/16 10:00 Sodium Level 140 mmol/L Potassium Level 3.3 mmol/L Chloride Level 103 mmol/L Carbon Dioxide Level 29 mmol/L Anion Gap 8.0 mmol/L Blood Urea Nitrogen 10 mg/dl Creatinine 0.51 mg/dl Est Creatinine Clear Calc Drug Dose 77.6 ml/min Estimated GFR () 102.3 Estimated GFR (Non- 88.3 BUN/Creatinine Ratio 18.9 Random Glucose 91 mg/dl Calcium Level 7.4 mg/dl Magnesium Level 1.5 mg/dl 1.5 mg/dl Assessment and Plan (1) Colonic mass Assessment & Plan: 1. colon cancer - POD #17, s/p transverse colectomy with end-to-end anastomosis. POD #9, s/p ex lap with takedown of colonic anastomosis , partial colectomy, colostomy/mucous fistula creation & abdominal wash-out. Defer management to gen surg. (2) DVT prophylaxis Assessment & Plan: Continue lovenox (3) Gram negative sepsis Assessment & Plan: resolved (4) HTN (hypertension)
[2016-12-31] MEDS: ACETAMINOPHEN IV 650 MG in EMPTY BAG 0 ML IV PRN (18:16)
[2017-01-01] MEDS: METOCLOPRAMIDE HCL INJ 5 MG/ML 2 ML VIAL IV. SCH ×4 (01:30→20:51)
[2017-01-01 07:20] VITALS: BP 150/57; PULSE 102; TEMP 36.6; O2SAT 97
--- NOTE | 2017-01-01 07:39 | Surgery Progress Note ---
Surgery Progress Note Date of Service Jan 01, 2017. Subjective + feeling well, No complaints Objective Vital Signs: Date Time Temp Pulse Resp B/P Pulse Ox O2 Delivery O2 Flow Rate FiO2 01/01/17 07:20 36.6 102 18 150/57 97 Nasal Cannula 2.0 01/01/17 00:20 Nasal Cannula 2.0 12/31/16 23:17 36.7 101 18 156/58 97 Nasal Cannula 2.0 12/31/16 16:45 Nasal Cannula 2.0 12/31/16 15:28 36.7 107 18 131/53 96 Room Air 12/31/16 14:21 94 Nasal Cannula 2.0 12/31/16 14:20 98 147/77 86 Room Air 12/31/16 14:02 110 94 12/31/16 08:36 106 96 Room Air Abdomen: soft Incision(s): drainage (packing periumbilical) Laboratory Results: Results Past 24 Hours Test 12/31/16 10:00 Range/Units Magnesium Level 1.5 1.8-2.4 mg/dl Assessment & Plan transverse colectomy colostomy/mucus fistula for anastomotic leak making some progress d/c planning, rehab vs continue packing changes
[2017-01-01] MEDS: BOOST VANILLA PO SCH ×4 (08:33→17:37)
[2017-01-01] MEDS: FERROUS SULFATE 325 MG TAB PO SCH ×2 (08:33→17:38)
[2017-01-01] MEDS: MENTHOL-ZINC OXIDE 360 APPLN/120 GM TUBE EXT SCH (08:35)
[2017-01-01] MEDS: CLOBETASOL PROPIONATE 0.05% EXT SCH ×2 (08:35→20:51)
[2017-01-01] MEDS: PENTOSAN POLYSULFATE SODIUM 100 MG CAP PO SCH ×2 (08:36→20:51)
[2017-01-01] MEDS: KETOTIFEN FUMARATE (ZADITOR) 0.025% 5 ML BTL OP SCH ×2 (08:36→20:59)
[2017-01-01] MEDS: FLUTICASONE FUROATE-VILANTEROL 200/25 MCG INH IN SCH (08:36)
[2017-01-01] MEDS: PANTOprazole SOD 40 MG TAB PO SCH ×2 (08:37→20:51)
[2017-01-01] MEDS: AMLODIPINE BESYLATE 5 MG TAB PO SCH (08:37)
[2017-01-01] MEDS: CEROVITE ADV FORMULA TAB PO SCH (08:38)
[2017-01-01] MEDS: METRONIDAZOLE VAG 0.75% PV SCH (08:38)
[2017-01-01] MEDS: ENOXAPARIN 40 MG/0.4 ML SYR SQ SCH (08:39)
[2017-01-01] MEDS: LORAZEPAM 0.5 MG TAB PO SCH ×2 (08:44→20:54)
[2017-01-01] MEDS: ERTAPENEM IV 1 GM in SODIUM CHLOR 0.9% AD-VAN 50ML 50 ML IV SCH (11:34)
[2017-01-01 12:10] VITALS: BP 125/51; PULSE 107; O2SAT 99
[2017-01-01 15:21] VITALS: BP 153/69; PULSE 100; TEMP 36.5; O2SAT 96
[2017-01-01] MEDS: ACETAMINOPHEN IV 650 MG in EMPTY BAG 0 ML IV PRN (17:21)
--- NOTE | 2017-01-01 19:23 | Hospitalist Progress Note ---
Hospitalist Progress Note Date of Service Jan 01, 2017. Subjective Pt evaluation today including: conversation w/ patient, conversation w/ family patient resting comfortably no complaints All Other Systems: Reviewed and Negative Medications Medications (Trade) Dose Ordered Sig/Aleksander Route Start Time Stop Time Status Last Admin Dose Admin Lorazepam (Ativan Tab) 0.25 mg BID PO 01/01/17 09:00 01/31/17 08:59 01/01/17 08:44 0.25 MG Objective Vital Signs Date Time Temp Pulse Resp B/P Pulse Ox O2 Delivery O2 Flow Rate FiO2 01/01/17 15:21 36.5 100 17 153/69 96 Nasal Cannula 3.0 01/01/17 12:10 107 99 01/01/17 08:00 Nasal Cannula 2.0 01/01/17 07:20 36.6 102 18 150/57 97 Nasal Cannula 2.0 01/01/17 00:20 Nasal Cannula 2.0 12/31/16 23:17 36.7 101 18 156/58 97 Nasal Cannula 2.0 Physical Exam General Appearance: no apparent distress ENT: hearing grossly normal Neck: trachea midline Respiratory/Chest: lungs clear Cardiovascular: regular rate, rhythm Abdomen: non tender Skin: normal color, warm/dry Assessment and Plan (1) Colonic mass Assessment & Plan: s/p transfer colectomy with anastamotic leak with working colostomy clinically improving discharge planning per surgery (2) DVT prophylaxis Assessment & Plan: lovenox (3) Gram negative sepsis Assessment & Plan: resolved (4) HTN (hypertension)
[2017-01-01 23:22] VITALS: BP 163/76; PULSE 98; TEMP 36.7; O2SAT 95
[2017-01-01 23:56] VITALS: BP 148/64; PULSE 98
[2017-01-02] MEDS: METOCLOPRAMIDE HCL INJ 5 MG/ML 2 ML VIAL IV. SCH ×4 (01:29→19:32)
[2017-01-02 06:12] LABS: HEMATOCRIT 25.5 % (37-47); MEAN CELL VOLUME 88.9 fL (80-100); MEAN CORPUSCULAR HEMOGLOBIN 29.3 pg (25-34); MEAN CORPUSCULAR HGB CONC 32.9 g/dl (32-36); MEAN PLATELET VOLUME 9.3 fL (7.4-10.4); PLATELET COUNT 486 K/uL (130-400); RED BLOOD COUNT 2.87 M/uL (4.2-5.4)
[2017-01-02 06:46] LABS: BUN/CREATININE RATIO 20.3 (10-20); CALCIUM 7.2 mg/dl (8.5-10.1); CREATININE 0.46 mg/dl (0.60-1.20); POTASSIUM 3.1 mmol/L (3.5-5.1)
[2017-01-02] MEDS: METRONIDAZOLE VAG 0.75% PV SCH (08:05)
[2017-01-02 08:07] VITALS: BP 172/61; PULSE 103; TEMP 36.6; O2SAT 96
[2017-01-02] MEDS: BOOST VANILLA PO SCH ×4 (08:14→17:36)
[2017-01-02] MEDS: FERROUS SULFATE 325 MG TAB PO SCH ×2 (08:15→17:37)
--- NOTE | 2017-01-02 09:00 | Surgery Progress Note ---
Surgery Progress Note Date of Service Jan 02, 2017. Subjective + feeling well, No complaints Objective Vital Signs: Date Time Temp Pulse Resp B/P Pulse Ox O2 Delivery O2 Flow Rate FiO2 01/02/17 08:07 36.6 103 18 172/61 96 Nasal Cannula 2.0 01/02/17 07:30 Nasal Cannula 2.0 01/01/17 23:56 98 148/64 01/01/17 23:45 Nasal Cannula 2.0 01/01/17 23:22 36.7 98 20 163/76 95 Nasal Cannula 2.0 01/01/17 17:30 Nasal Cannula 2.0 01/01/17 15:21 36.5 100 17 153/69 96 Nasal Cannula 3.0 01/01/17 12:10 107 99 Abdomen: soft Incision(s): drainage (09/19" packing changed this AM) Laboratory Results: Results Past 24 Hours Test 01/02/17 05:20 Range/Units White Blood Count 9.10 4.8-10.8 K/uL Red Blood Count 2.87 4.2-5.4 M/uL Hemoglobin 8.4 12.0-16.0 g/dL Hematocrit 25.5 37-47 % Mean Corpuscular Volume 88.9 80-100 fL Mean Corpuscular Hemoglobin 29.3 25-34 pg Mean Corpuscular Hemoglobin Concent 32.9 32-36 g/dl RDW Standard Deviation 47.7 36.4-46.3 fL RDW Coefficient of Variation 14.5 11.5-14.5 % Platelet Count 486 130-400 K/uL Mean Platelet Volume 9.3 7.4-10.4 fL Sodium Level 142 136-145 mmol/L Potassium Level 3.1 3.5-5.1 mmol/L Chloride Level 106 98-107 mmol/L Carbon Dioxide Level 29 21-32 mmol/L Anion Gap 7.0 3-11 mmol/L Blood Urea Nitrogen 9 7-18 mg/dl Creatinine 0.46 0.60-1.20 mg/dl Est Creatinine Clear Calc Drug Dose 86.0 ml/min Estimated GFR () 105.9 Estimated GFR (Non- 91.3 BUN/Creatinine Ratio 20.3 10-20 Random Glucose 84 70-99 mg/dl Calcium Level 7.2 8.5-10.1 mg/dl Assessment & Plan transverse colectomy colostomy/mucus fistula for anastomotic leak improving, will need continued care, agreeable to [place] d/c in next 1 -2 days continue packing changes daily will ask ID for recs for follow-up and abx
[2017-01-02] MEDS: AMLODIPINE BESYLATE 5 MG TAB PO SCH (09:40)
[2017-01-02] MEDS: LORAZEPAM 0.5 MG TAB PO SCH ×2 (09:40→21:10)
[2017-01-02] MEDS: MENTHOL-ZINC OXIDE 360 APPLN/120 GM TUBE EXT SCH (09:41)
[2017-01-02] MEDS: CLOBETASOL PROPIONATE 0.05% EXT SCH ×2 (09:42→21:11)
[2017-01-02] MEDS: FLUTICASONE FUROATE-VILANTEROL 200/25 MCG INH IN SCH (09:43)
[2017-01-02] MEDS: ENOXAPARIN 40 MG/0.4 ML SYR SQ SCH (09:43)
[2017-01-02] MEDS: CEROVITE ADV FORMULA TAB PO SCH (09:44)
[2017-01-02] MEDS: KETOTIFEN FUMARATE (ZADITOR) 0.025% 5 ML BTL OP SCH ×2 (09:44→21:10)
[2017-01-02] MEDS: PENTOSAN POLYSULFATE SODIUM 100 MG CAP PO SCH ×2 (09:44→21:11)
[2017-01-02] MEDS ORDERED: POTASSIUM CHLORIDE 20 MEQ TABCR PO ONE (09:45)
[2017-01-02] MEDS: PANTOprazole SOD 40 MG TAB PO SCH ×2 (09:45→21:11)
[2017-01-02 11:07] VITALS: BP 135/71; PULSE 100
[2017-01-02] MEDS: ERTAPENEM IV 1 GM in SODIUM CHLOR 0.9% AD-VAN 50ML 50 ML IV SCH (11:43)
[2017-01-02 15:10] VITALS: BP 127/69; PULSE 107; TEMP 36.2; O2SAT 97
[2017-01-02] MEDS: POTASSIUM CHLORIDE 20 MEQ TABCR PO SCH (17:38)
[2017-01-02] MEDS: ANUSOL SUPP 1 EA PR PRN (19:32)
--- NOTE | 2017-01-02 19:56 | Hospitalist Progress Note ---
Hospitalist Progress Note Date of Service Jan 02, 2017. Subjective Pt evaluation today including: conversation w/ patient patient with no complaints All Other Systems: Reviewed and Negative Objective Vital Signs Date Time Temp Pulse Resp B/P Pulse Ox O2 Delivery O2 Flow Rate FiO2 01/02/17 15:10 36.2 107 16 127/69 97 Nasal Cannula 2.0 01/02/17 11:07 100 135/71 01/02/17 08:07 36.6 103 18 172/61 96 Nasal Cannula 2.0 01/02/17 07:30 Nasal Cannula 2.0 01/01/17 23:56 98 148/64 01/01/17 23:45 Nasal Cannula 2.0 01/01/17 23:22 36.7 98 20 163/76 95 Nasal Cannula 2.0 Physical Exam General Appearance: no apparent distress Respiratory/Chest: lungs clear, no respiratory distress Cardiovascular: regular rate, rhythm Abdomen: soft Laboratory Results Last 24 Hours Test 01/02/17 05:20 White Blood Count 9.10 K/uL Red Blood Count 2.87 M/uL Hemoglobin 8.4 g/dL Hematocrit 25.5 % Mean Corpuscular Volume 88.9 fL Mean Corpuscular Hemoglobin 29.3 pg Mean Corpuscular Hemoglobin Concent 32.9 g/dl RDW Standard Deviation 47.7 fL RDW Coefficient of Variation 14.5 % Platelet Count 486 K/uL Mean Platelet Volume 9.3 fL Sodium Level 142 mmol/L Potassium Level 3.1 mmol/L Chloride Level 106 mmol/L Carbon Dioxide Level 29 mmol/L Anion Gap 7.0 mmol/L Blood Urea Nitrogen 9 mg/dl Creatinine 0.46 mg/dl Est Creatinine Clear Calc Drug Dose 86.0 ml/min Estimated GFR () 105.9 Estimated GFR (Non- 91.3 BUN/Creatinine Ratio 20.3 Random Glucose 84 mg/dl Calcium Level 7.2 mg/dl Assessment and Plan (1) Colonic mass Assessment & Plan: s/p transverse colectomy with anastomitic leak, repaired. Improving clinically (2) DVT prophylaxis Assessment & Plan: lovenox (3) Gram negative sepsis Assessment & Plan: resolved (4) HTN (hypertension)
[2017-01-02] MEDS: ERGOCALCIFEROL 50,000 INTER.UNIT CAP PO SCH (21:11)
[2017-01-02 23:40] VITALS: BP 153/60; PULSE 105; TEMP 36.4; O2SAT 95
[2017-01-03] MEDS: METOCLOPRAMIDE HCL INJ 5 MG/ML 2 ML VIAL IV. SCH ×3 (01:06→13:48)
[2017-01-03 07:50] VITALS: BP 158/75; PULSE 106; TEMP 36.7; O2SAT 95
[2017-01-03] MEDS: BOOST VANILLA PO SCH ×2 (08:55)
[2017-01-03] MEDS: POTASSIUM CHLORIDE 20 MEQ TABCR PO SCH (08:56)
[2017-01-03] MEDS: FERROUS SULFATE 325 MG TAB PO SCH (08:56)
[2017-01-03] MEDS: ENOXAPARIN 40 MG/0.4 ML SYR SQ SCH (08:57)
[2017-01-03] MEDS: METRONIDAZOLE VAG 0.75% PV SCH (08:57)
[2017-01-03] MEDS: PANTOprazole SOD 40 MG TAB PO SCH (08:57)
[2017-01-03] MEDS: AMLODIPINE BESYLATE 5 MG TAB PO SCH (08:58)
[2017-01-03] MEDS: CEROVITE ADV FORMULA TAB PO SCH (08:58)
[2017-01-03] MEDS: PENTOSAN POLYSULFATE SODIUM 100 MG CAP PO SCH (08:58)
[2017-01-03] MEDS: CLOBETASOL PROPIONATE 0.05% EXT SCH (08:59)
[2017-01-03] MEDS: KETOTIFEN FUMARATE (ZADITOR) 0.025% 5 ML BTL OP SCH (08:59)
[2017-01-03] MEDS: MENTHOL-ZINC OXIDE 360 APPLN/120 GM TUBE EXT SCH (08:59)
[2017-01-03] MEDS: FLUTICASONE FUROATE-VILANTEROL 200/25 MCG INH IN SCH (09:00)
[2017-01-03] MEDS: LORAZEPAM 0.5 MG TAB PO SCH (09:03)
--- NOTE | 2017-01-03 11:30 | Surgery Progress Note ---
Surgery Progress Note Date of Service Jan 03, 2017. Subjective doing ok/no acute changes lyric diet pain controlled Objective Vital Signs: Date Time Temp Pulse Resp B/P Pulse Ox O2 Delivery O2 Flow Rate FiO2 01/03/17 07:50 36.7 106 16 158/75 95 Room Air 01/03/17 07:30 Nasal Cannula 2.0 01/02/17 23:40 36.4 105 20 153/60 95 Nasal Cannula 2.0 01/02/17 19:30 Nasal Cannula 2.0 01/02/17 15:10 36.2 107 16 127/69 97 Nasal Cannula 2.0 General Appearance: no apparent distress Abdomen: soft, + pertinent finding (stoma viable/functioning) Incision(s): clean, intact, findings (mild drainage where cristine removed) Assessment & Plan 01/03/17 stable accepted to [facility] surgically ready will d/w family regarding d/c today/tomorrow 12/31/16 continued improvement will remove bottom 2-3 cristine and irrigate/pack wbc slowly improving d/c planning....will d/w soc services, family and [facility] 12/28/16 continues to improve clinically lyric diet will need aggressive pt/ot. await PT rec's for d/c plans d/c hilario cont antibiotics. appreciate ID help change to oral pain meds Dr. Purvis covering for weekend. 12/27/16 continues to slowly improve quite weak wbc still elevated. afebrile. antibiotics per ID continue agressive PT/OT. will need Rehab prior to going home will slowly advance diet now that stoma is formally functioning. pt can have her home ranitidine that she is requesting 12/26/16 slow improvement. wbc still elevated. d/w Dr. Frost. will add antifungal ok to transfer from icu today will need aggressive pt/ot in upcoming days/weeks and will likely need rehab will slowly advance diet as she tolerates. 12/24/16 see below. pt continues to slowly improve now. FRANCINE's serous. +stool in colostomy. appreciate ICU input. increase activity. can d/c ngt and start clears soon hopefully transfer from ICU tomorrow. transverse colectomy colostomy/mucus fistula for anastomotic leak on TPN, Zosyn moderate NG output although some returning bowel function Anemia H&H stable after transfusion GABRIEL creatine back to baseline this AM 12/31/16 continued improvement will remove bottom 2-3 cristine and irrigate/pack wbc slowly improving d/c planning....will d/w soc services, family and pt [facility] 12/28/16 continues to improve clinically lyric diet will need aggressive pt/ot. await PT rec's for d/c plans d/c hilario cont antibiotics. appreciate ID help change to oral pain meds Dr. Purvis covering for weekend. 12/27/16 continues to slowly improve quite weak wbc still elevated. afebrile. antibiotics per ID continue agressive PT/OT. will need Rehab prior to going home will slowly advance diet now that stoma is formally functioning. pt can have her home ranitidine that she is requesting 12/26/16 slow improvement. wbc still elevated. d/w Dr. Frost. will add antifungal ok to transfer from icu today will need aggressive pt/ot in upcoming days/weeks and will likely need rehab will slowly advance diet as she tolerates. 12/24/16 see below. pt continues to slowly improve now. FRANCINE's serous. +stool in colostomy. appreciate ICU input. increase activity. can d/c ngt and start clears soon hopefully transfer from ICU tomorrow. transverse colectomy colostomy/mucus fistula for anastomotic leak on TPN, Zosyn moderate NG output although some returning bowel function Anemia H&H stable after transfusion GABRIEL creatine back to baseline this AM
--- NOTE | 2017-01-03 12:08 | Discharge Instructions ---
Discharge Instructions Date of Service Jan 03, 2017. 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 Additional Information Patient informed of condition: Yes Advance Directives: No DNR: No Level of Care: Skilled Communicable Disease: No Prognosis: Stable Zepeda Catheter: No Instructions / Follow-Up Instructions / Follow-Up Dr. Lomax in 1 week, [phone] Current Hospital Diet Patient's current hospital diet: Regular Diet Discharge Diet Recommended Diet: Regular Diet Procedures Procedures Performed: Exploratory Laparotomy, take down colonic anastomosis with partial colectomy, end colostomy, mucus fistula, abdominal washout Pending Studies Studies pending at discharge: no Physician Orders On Transfer Dressing Changes: Daily irrigation and 1/4" packing changes to portion of opened midline incision Laboratory Results Hemoglobin A1c Test 10/17/16 08:38 Range/Units Estimated Average Glucose 120 mg/dl Hemoglobin A1c 5.8 H 4.5-5.6 % Lipid Panel Test 10/17/16 08:38 12/21/16 08:39 Range/Units Triglycerides Level 101 201 H 0-150 mg/dl Cholesterol Level 148 0-200 mg/dl HDL Cholesterol 48 mg/dl Cholesterol/HDL Ratio 3.1 LDL Cholesterol, Calculated 80 mg/dl Medical Emergencies . Who to Call and When: Medical Emergencies: If at any time you feel your situation is an emergency, please call 911 immediately. . Non-Emergent Contact Non-Emergency issues call your: Surgeon Call Non-Emergent contact if: you have a fever, wound has increased drainage, wound has increased redness . . "Provider Documentation" section prepared by Fer Herrera. . Core Measure Problem Core Measures: None
[2017-01-03] MEDS ORDERED: MCRK20 PO (12:11)
[2017-01-03] MEDS ORDERED: ULT50X PO (12:11)
[2017-01-03] MEDS ORDERED: FRRS300 PO (12:11)
[2017-01-03] MEDS: ERTAPENEM IV 1 GM in SODIUM CHLOR 0.9% AD-VAN 50ML 50 ML IV SCH (12:17)
[2017-01-03] MEDS ORDERED: ATV5 PO (14:35)
[2017-01-03 15:50] VITALS: BP 147/66; PULSE 108; TEMP 36.7; O2SAT 94
--- NOTE | 2017-01-03 15:51 | DISCHARGE SUMMARY ---
DATE OF DISCHARGE: 01/03/2017. PRIMARY DISCHARGE DIAGNOSES: 1. Transverse colon cancer. 2. Anastomotic breakdown with gram-negative sepsis. 3. Acute on chronic anemia, combination of dilutional and blood loss acutely. 4. Acute kidney injury, resolved. 5. Hypertension. PROCEDURE PERFORMED: 1. Open transverse colectomy with primary anastomosis, omentectomy and excisional biopsy of left liver lesion on 12/13/2016. 2. Exploratory laparotomy with end colostomy and mucous fistula and abdominal washout on 12/21/2016. CONSULTATIONS: 1. [facility] hospitalist to assist in medical management. 2. Infectious disease for antibiotic selection. 3. [facility] big data engineer for postoperative ICU care. HOSPITAL COURSE: The patient is an 86-year-old female with transverse colon cancer admitted through same day and taken to the operating room for colectomy and biopsy of liver lesion. The procedure was well tolerated. She was transferred to the regular surgical floor. She did well over the first 3 days. She was given 1 unit of packed red blood cells for postoperative anemia. Nasogastric tube was removed on postoperative day 3. She was started on a liquid diet. On day 5, she had an episode of severe abdominal pain followed by syncope which we attributed to vasovagal. We had the hospitalist see her at that time. Over the next 2 days she had some abdominal distention and nausea. She did move her bowels on day 7, but was not tolerating much by mouth. She was started on TPN. She was also started empirically on Zosyn when her white count was rising her creatinine was also rising. That prompted a CAT scan which showed multiple fluid and gas-containing abdominal and pelvic fluid collections as well as a small pneumoperitoneum. She was at that point taken back to the operating room for exploration had evidence of anastomotic breakdown. Colostomy and mucous fistula was performed. She was extubated and taken to the ICU postoperatively and the big data engineer service was consulted routinely. Her hemoglobin again dropped postoperatively. She was transfused an additional 2 units. H and H remained stable after that time and no further transfusions were necessary. Her creatinine normalized on postoperative day 3. She was transferred out of ICU back to the regular floor. IV Zosyn was changed to Invanz continued up until the time of her discharge. She was otherwise making slow but steady progress. She was able to tolerate regular diet. She made some progress with therapies. Recommendations were for continued rehab. She did have some drainage from the mid incision we opened that and packed that. On postoperative day 13 she was stable for transfer to [facility]. Her abdomen was soft. Colostomy was functioning well. The mid incision was packed with quarter inch gauze. Her white count was normalized at 9,000 and H&H was 8.4 and 25.5. Her creatinine peaked at 2.7, was now 0.46. DISCHARGE INSTRUCTIONS: Transfer to [facility]. Follow up with Dr. Lomax in 1 week. Continue daily packing changes. Continue physical and occupational therapy. No additional antibiotics are needed. DISCHARGE MEDICATIONS: Tramadol 50 mg every 4 hours as needed, potassium chloride 20 mEq b.i.d. x3 days and ferrous sulfate 325 mg b.i.d. Continue previous home medications: Albuterol 2 puffs q. 4 hours as needed, Norvasc 10 mg daily, Lipitor 10 mg daily, calcium, glucose phosphate 1 tablet daily, clobetasol cream, Breo 1 puff daily, Flonase nasal spray 2 sprays as needed, Zaditor ophthalmic drops every 12 hours, Claritin 10 mg daily, metronidazole vaginal gel daily as needed, Prilosec 20 mg daily, Neurontin 100 mg b.i.d., vitamin B6 100 mg daily, Micardis 80 mg daily. MTDD
[2017-01-16] MEDS ORDERED: SIMV10TA2 PO (10:10)
[2017-01-16] MEDS ORDERED: TRAM-10 PO (10:14)
[2017-04-29] MEDS ORDERED: FERR1TAB13 PO (12:55)
[2017-04-29] MEDS ORDERED: CLR10 PO (12:55)
[2017-04-29] MEDS ORDERED: PHEN-876 PO (12:55)
[2017-04-29] MEDS ORDERED: ATOR10TA82 PO (12:55)
[2017-04-29] MEDS ORDERED: MTHH1 PO (12:55)
[2017-04-29] MEDS ORDERED: PENT100C6 PO (12:55)
== END 2017-01-03 16:15 | DRG 329 ==
LOC: ENRESERVTM → ENRESERVDT → C.ACU 10:20 → C.MSN 15:03 → C.MSICU 12-21 19:33 → C.2T 12-25 18:54 → C.MSN 12-30 09:36
PROVIDERS: ADMIT Surgery; ATTEND Surgery
PROC: 0FB20ZX Excision of Left Lobe Liver, Open Approach, Diagnostic (ICD-10-PCS; principal; 2016-12-13 12:00)
PROC: 0DTS0ZZ (ICD-10-PCS; principal; 2016-12-13 12:00)
PROC: 0DTL0ZZ Resection of Transverse Colon, Open Approach (ICD-10-PCS; principal; 2016-12-13 12:00)
PROC: 0DBE0ZZ Excision of Large Intestine, Open Approach (ICD-10-PCS; 2016-12-21)
PROC: 0D1N0Z4 Bypass Sigmoid Colon to Cutaneous, Open Approach (ICD-10-PCS; 2016-12-21)
DX: C18.4 Malignant neoplasm of transverse colon (principal); A41.53 Sepsis due to Serratia; J84.9 Interstitial pulmonary disease, unspecified; N17.9 Acute kidney failure, unspecified; K91.89 Other postprocedural complications and disorders of digestive system; K65.1 Peritoneal abscess; N39.0 Urinary tract infection, site not specified; D62 Acute posthemorrhagic anemia; K56.7 Ileus, unspecified; I44.1 Atrioventricular block, second degree; I35.1 Nonrheumatic aortic (valve) insufficiency; I10 Essential (primary) hypertension; K21.9 Gastro-esophageal reflux disease without esophagitis; E53.8 Deficiency of other specified B group vitamins; L43.8 Other lichen planus; E86.0 Dehydration; Y83.2 Surgical operation with anastomosis, bypass or graft as the cause of abnormal reaction of the patient, or of later complication, without mention of misadventure at the time of the procedure; Y92.239 Unspecified place in hospital as the place of occurrence of the external cause

== ENCOUNTER → 2017-01-07 | Outpatient (CLI) | payer OTHER ==
[~2017-01-07] MED LIST changes: +ATV5 PO; -CEFAZOLIN 2000 MG/60 ML D5W 60 ML IV SCH; -CEFU1TAB36 PO; +FERR1TAB13 PO; +FERR325T5; +FRRS300 PO; -HEPARIN SOD 5000 UNIT/0.5 ML CARP SQ SCH; -LACTATED RINGER'S 1000ML IV SCH; +MCRK20 PO; +METR0.757 PV; +MTHH1 PO; +PHEN-876 PO; +PRED20TA2 PO; +SIMV10TA2 PO; +TRAM-10 PO; +ULT50X PO; -[UNRECOGNIZED DRUG - CODE] TOP
[2017-01-07 08:20] LABS: BASO % 0.4 %; BASO ABS # 0.03 K/uL (0-0.2); EOS % 2.1 %; HEMATOCRIT 27.1 % (37-47); IG% 0.4 %; LYMPH % 13.1 %; LYMPH ABS # 0.98 K/uL (1.2-3.4); MEAN CELL VOLUME 90.6 fL (80-100); MEAN CORPUSCULAR HEMOGLOBIN 28.8 pg (25-34); MEAN CORPUSCULAR HGB CONC 31.7 g/dl (32-36); MEAN PLATELET VOLUME 9.4 fL (7.4-10.4); MONO % 7.2 %; NEUT % 76.8 %; PLATELET COUNT 558 K/uL (130-400); RED BLOOD COUNT 2.99 M/uL (4.2-5.4); WHITE BLOOD COUNT 7.47 K/uL (4.8-10.8)
[2017-01-07 08:27] LABS: ALT/SGPT 12 U/L (12-78); BLOOD UREA NITROGEN 6 mg/dl (7-18); BUN/CREATININE RATIO 11.1 (10-20); CARBON DIOXIDE 29 mmol/L (21-32); CHLORIDE 104 mmol/L (98-107); CREATININE 0.54 mg/dl (0.60-1.20); GLUCOSE 88 mg/dl (70-99); MAGNESIUM 1.3 mg/dl (1.8-2.4); SODIUM 141 mmol/L (136-145)
[2017-01-07 08:30] LABS: ALB/GLOB RATIO 0.4 (0.9-2); ALKALINE PHOSPHATASE 79 U/L (45-117); AST/SGOT 13 U/L (15-37)
[2017-01-07 08:45] LABS: CALCIUM 7.9 mg/dl (8.5-10.1)
[2017-01-07 09:02] LABS: COMPLETE YES; ECHINOCYTES 1+
== END ==
LOC: C.LABCC 07:43
PROVIDERS: ATTEND Internal Medicine
DX: C18.9 Malignant neoplasm of colon, unspecified (principal); E87.6 Hypokalemia; E83.42 Hypomagnesemia

== ENCOUNTER → 2017-01-09 | Outpatient (CLI) | payer OTHER | LOC: C.LABSPEC 17:03 | PROVIDERS: ATTEND Nurse Practitioner Adult Health | DX: R30.0 Dysuria (principal); R39.9 Unspecified symptoms and signs involving the genitourinary system ==

== ENCOUNTER → 2017-01-15 | Outpatient (CLI) | payer OTHER ==
[2017-01-15 08:18] LABS: HEMATOCRIT 24.3 % (37-47); MEAN CORPUSCULAR HEMOGLOBIN 27.2 pg (25-34); MEAN CORPUSCULAR HGB CONC 30.9 g/dl (32-36); MEAN PLATELET VOLUME 8.6 fL (7.4-10.4); PLATELET COUNT 532 K/uL (130-400); RED BLOOD COUNT 2.76 M/uL (4.2-5.4); WHITE BLOOD COUNT 7.37 K/uL (4.8-10.8)
== END ==
LOC: C.LABCC 07:48
PROVIDERS: ATTEND Internal Medicine
DX: D64.9 Anemia, unspecified (principal)

== ENCOUNTER → 2017-01-16 | Outpatient (CLI) | payer OTHER | LOC: C.LABCC 09:06 | PROVIDERS: ATTEND Internal Medicine | DX: D64.9 Anemia, unspecified (principal) ==

== ENCOUNTER → 2017-01-18 | Outpatient (CLI) | payer OTHER ==
[~2017-01-18] MED LIST changes: -ATV5 PO; -MCRK20 PO; -ULT50X PO
[2017-01-18 17:24] LABS: URINE APPEARANCE CLEAR (CLEAR); URINE BILIRUBIN NEG (NEG); URINE COLOR DK YELLOW; URINE EPITHELIAL CELL AUTO 0-5 /lpf (0-5); URINE NITRITE POS (NEG); URINE SPECIFIC GRAVITY 1.008 (1.000-1.030); UROBILINOGEN NEG (NEG)
[2017-01-18 17:25] LABS: MANUAL MICROSCOPIC REQUIRED? NO; REVIEW REQ? NO
== END ==
LOC: C.LABCC 16:55
PROVIDERS: ATTEND Internal Medicine
DX: R35.0 Frequency of micturition (principal); R30.0 Dysuria

== ENCOUNTER → 2017-01-22 | Outpatient (CLI) | payer OTHER ==
[2017-01-22 11:56] LABS: BASO % 0.9 %; BASO ABS # 0.07 K/uL (0-0.2); COMPLETE YES; EOS % 6.3 %; IG% 0.1 %; LYMPH % 19.8 %; LYMPH ABS # 1.55 K/uL (1.2-3.4); MEAN CELL VOLUME 88.8 fL (80-100); MEAN CORPUSCULAR HEMOGLOBIN 28.5 pg (25-34); MEAN CORPUSCULAR HGB CONC 32.1 g/dl (32-36); MONO % 7.2 %; NEUT % 65.7 %; PLATELET COUNT 472 K/uL (130-400); RED BLOOD COUNT 3.83 M/uL (4.2-5.4); WHITE BLOOD COUNT 7.81 K/uL (4.8-10.8)
--- NOTE | 2017-01-23 14:21 | CODING QUERY NO DIAGNOSIS ---
: 1930 TREATMENT RENDERED WITHOUT A DIAGNOSIS To promote full compliance with coding requirements relating to patient care, physician participation is requested in all cases of church musician uncertainty. Please assist us with providing a diagnosis/symptom for the test(s) below: A diagnosis/symptom was not documented on your Order. A valid diagnosis/symptom is required to bill all insurances. Please remember that we are unable to code a diagnosis of rule out, probable, possible, questionable, or suspected. Tests that require a diagnosis: DOS: 01/22/17 * CBC WITH AUTO DIFFERENTIAL DIAGNOSIS: Provider Signature: Date: Thank you Nitza Garcia Health Information Management Once completed, please kindly fax back to [phone] For questions please call [phone]
== END | disposition home or self-care (01) ==
LOC: C.LABSPEC 11:45
PROVIDERS: ATTEND Internal Medicine
DX: D64.9 Anemia, unspecified (principal)

== ENCOUNTER → 2017-01-23 | Outpatient (CLI) | payer OTHER ==
--- NOTE | 2017-01-23 15:39 | DIAGNOSTIC IMAGING REPORT ---
EXAMINATION: RENAL ULTRASOUND CLINICAL HISTORY: R39.9 Urinary symptom or signN39.0 Urinary tract infection, acut COMPARISON STUDY: CT scan dated 12/21/2016 FINDINGS: The right kidney measures 9.6 cm. The left kidney measures 9.3 cm. There is mild fullness of each renal collecting system. Significant obstruction is unlikely present as bilateral ureteral jets are visualized. There are no renal masses. No bladder abnormalities are visualized. Bilateral ureteral jets were visualized. IMPRESSION : 1. No solid renal masses identified 2. Minor fullness of each renal collecting system. Significant obstruction is not felt to be present as bilateral ureteral jets were visualized Electronically signed by: Grabiel Del Toro M.D. 01/23/2017 3:38 PM Dictated Date/Time: 01/23/2017 1:55 PM
== END | disposition home or self-care (01) ==
LOC: C.ULTR 12:54
PROVIDERS: ATTEND Nurse Practitioner Family
DX: N39.0 Urinary tract infection, site not specified (principal); R39.9 Unspecified symptoms and signs involving the genitourinary system

== ENCOUNTER → 2017-01-28 | Outpatient (CLI) | payer OTHER | END | disposition home or self-care (01) | LOC: C.LABSPEC 17:22 | PROVIDERS: ATTEND Nurse Practitioner Adult Health | DX: N30.10 Interstitial cystitis (chronic) without hematuria (principal) ==

== ENCOUNTER → 2017-02-07 | Outpatient (CLI) | payer OTHER | END | disposition home or self-care (01) | LOC: C.LABSPEC 17:36 | PROVIDERS: ATTEND Surgery | DX: C18.9 Malignant neoplasm of colon, unspecified (principal) ==

== ENCOUNTER → 2017-02-07 | Outpatient (CLI) | payer OTHER | END | disposition home or self-care (01) | LOC: C.LABSPEC 17:23 | PROVIDERS: ATTEND Nurse Practitioner Adult Health | DX: R39.9 Unspecified symptoms and signs involving the genitourinary system (principal); N39.0 Urinary tract infection, site not specified; C18.9 Malignant neoplasm of colon, unspecified ==

== ENCOUNTER → 2017-03-08 | Outpatient (CLI) | payer OTHER ==
--- NOTE | 2017-03-08 14:28 | DIAGNOSTIC IMAGING REPORT ---
CHEST 2 VIEWS ROUTINE CLINICAL HISTORY: R09.89 Abnormal lung sounds COMPARISON STUDY: 12/25/2016 FINDINGS: The cardiac and mediastinal contours remain stable. There is a small right pleural effusion which is diminished in size when compared the prior study. The right-sided PICC catheter has been removed. There are interstitial bibasilar fibrotic changes. Underlying interstitial lung disease is suspected.[ IMPRESSION: 1. Suspected underlying interstitial lung disease with a basilar predominance 2. Interval decrease in the size of the right pleural effusion with improved aeration of the lung bases. Electronically signed by: Grabiel Del Toro M.D. 03/08/2017 2:26 PM Dictated Date/Time: 03/08/2017 2:25 PM
== END ==
LOC: C.RAD1850 14:09
PROVIDERS: ATTEND Internal Medicine
DX: R09.89 Other specified symptoms and signs involving the circulatory and respiratory systems (principal)

== ENCOUNTER → 2017-04-08 | Outpatient (CLI) | payer OTHER ==
[~2017-04-08] MED LIST changes: -ATOR10TA82 PO; +ATOR10TA88 PO; -PRED20TA2 PO
== END | disposition home or self-care (01) ==
LOC: C.LABBFT 09:50
PROVIDERS: ATTEND Nurse Practitioner Adult Health
DX: R31.9 Hematuria, unspecified (principal); N39.0 Urinary tract infection, site not specified

== ENCOUNTER → 2017-04-10 | Outpatient (CLI) | payer OTHER | END | disposition home or self-care (01) | LOC: C.LABSPEC 10:46 | PROVIDERS: ATTEND Nurse Practitioner Adult Health | DX: R30.0 Dysuria (principal) ==

== ENCOUNTER 2017-05-02 05:01 | Day surgery (SDC) | payer OTHER ==
[2017-04-29 12:57] VITALS: BMI 22.0
[~2017-05-02] VITALS: Ht 160 cm; Wt 58.8 kg
[~2017-05-02 05:01] MED LIST changes: -CALC-44 PO; -FERR325T5; -FLUT0.15 NAE; -FRRS300 PO; -METR0.757 PV; -PYRI100T4 PO; -SIMV10TA2 PO; -TRAM-10 PO
[2017-05-02] MEDS ORDERED: FERR325T5 (05:41)
[2017-05-02 05:42] VITALS: BP 181/61; PULSE 73; TEMP 36.7; O2SAT 97; Ht 160 cm; Wt 58.8 kg
[2017-05-02] MEDS ORDERED: CEFAZOLIN 1000MG/55 ML D5W IV SCH (06:00)
[2017-05-02] MEDS ORDERED: LACTATED RINGER'S 1000ML 1,000 ML IV SCH (06:00)
[2017-05-02] MEDS ORDERED: ONDANSETRON INJ 2 MG/ML 2 ML VIAL ONE (06:27)
[2017-05-02] MEDS ORDERED: MIDAZOLAM HCL 1 MG/ML 2ML VIAL ONE (06:27)
[2017-05-02] MEDS ORDERED: PROPOFOL IV EMULSION 10 MG/ML 20 ML VIAL IV ONE ×2 (06:27→07:46)
[2017-05-02] MEDS ORDERED: FENTANYL CITRATE INJ 50 MCG/1 ML 2 ML VIAL ONE (06:27)
[2017-05-02] MEDS ORDERED: BUPIVACAINE/EPINEPHRINE 0.5% MPF 1:200,000 10 ML VIAL ONE (06:44)
[2017-05-02] MEDS ORDERED: HEPARIN SOD (PORCINE) 1000 UNIT/ML 10 ML VIAL ONE (06:44)
[2017-05-02] MEDS ORDERED: EpHEDrine SULFATE INJ 50 MG/ML AMP ONE (07:52)
[2017-05-02] MEDS ORDERED: FENTANYL CITRATE INJ 50 MCG/1 ML 2 ML VIAL IV PRN (08:00)
[2017-05-02] MEDS ORDERED: EpHEDrine SULFATE INJ 50 MG/ML AMP IV PRN (08:00)
[2017-05-02] MEDS ORDERED: ATROPINE SULFATE 0.1 MG/ML 5ML SYR IV PRN (08:00)
[2017-05-02] MEDS ORDERED: ONDANSETRON INJ 2 MG/ML 2 ML VIAL IV PRN ×2 (08:00→08:30)
[2017-05-02] MEDS ORDERED: SODIUM CHLORIDE 0.9% 1000ML 1,000 ML IV SCH (08:28)
--- NOTE | 2017-05-02 08:29 | [facility] Operative Report ---
Operative Report Operative Date May 02, 2017. Pre-Operative Diagnosis Adenocarcinoma of Colon Post-Operative Diagnosis Same as preoperative/need for IV access Procedure(s) Performed Insertion of Mediport Using Fluoroscopy, Left Subclavian Vein Surgeon Dr. Andrey Lomax Tests Superintendent Surgeon(s) Agatha Nova PA-C Estimated Blood Loss 5ml Findings normal anatomy Specimens None per surgeon Anesthesia MAC/lidocaine Disposition Recovery Room / PACU Description of Procedure After informed consent was obtained the patient was taken operating suite placed in supine position. Left arm was tucked in the upper chest was started prepped and draped in usual fashion. Anesthesia gave IV sedation and titrated to effect. We then used lidocaine to create a skin wheal just below the left clavicle. We created a small field block as well as infiltrated the periosteum of the clavicle. We then made a horizontal incision with 15 blade scalpel and electrocautery to carry this down to the pectoralis fascia. Blunt finger dissection was used to make a pocket to house the port itself. Then using an 18 -gauge finder needle accessed left subclavian vein. The needle kept Clotting off not allowing the guidewire to be passed. It took a total of 3 sticks to access the vein to where we could pass the guidewire. I then passed a guidewire under fluoroscopy into the superior vena cava. We then cut the catheter to the appropriate length and connected to the Mediport itself. We then again using fluoroscopy advanced a vascular dilator with peel-away sheath over the guidewire. We then removed the vascular dilator and wire leaving the peel-away sheath in place. We then placed the port into the housing pocket and advanced the catheter through the peel-away sheath. We then peeled the sheath away leaving only the catheter. We flushed with heparin as well as withdrew dark venous blood without difficulty. Fluoroscopy again verified catheter placement in the superior vena cava. We thoroughly irrigated the wound. We secured the Mediport to the chest wall using 0 Ethibond with 3 point fixation. The wound was irrigated a final time and closed in 2 layers using 3-0 Monocryl for the deep layer and 3-0 Monocryl for the skin. Sterile dressing was applied. The patient was awakened and transferred recovery in stable condition. Postoperative portable chest x-ray is currently pending to verify catheter position and rule out pneumothorax I attest to the content of the Intraoperative Record and any orders documented therein. Any exceptions are noted below.
--- NOTE | 2017-05-02 08:30 | Discharge Instructions ---
Discharge Instructions Date of Service May 02, 2017. Admission Reason for Admission: Adenocarcinoma Of Colon Discharge Discharge Diagnosis / Problem: Adenocarcinoma of Colon Discharge Goals Goal(s): Decrease discomfort, Improve function Activity Recommendations Activity Limitations: as noted below Lifting Limitations: no more than 10 pounds Exercise/Sports Limitations: until after follow-up appointment May Resume Sexual Activity: after follow-up appointment Shower/Bathe: tomorrow . Instructions / Follow-Up Instructions / Follow-Up Please leave your gauze dressing on for the next 48 hours. You may shower tomorrow overtop the dressing. If needed, you may use over the counter pain medication for pain. Please follow-up with Dr. Lomax in the office for incision check. Please call the office at [phone] to make an appointment if you do not have one already. Please call the office at [phone] with any questions or concerns. Current Hospital Diet Patient's current hospital diet: Discharge Diet Recommended Diet: Regular Diet Procedures Procedures Performed: Insertion of Mediport Using Fluoroscopy, Left Subclavian Vein Pending Studies Studies pending at discharge: no Medical Emergencies . Who to Call and When: Medical Emergencies: If at any time you feel your situation is an emergency, please call 911 immediately. . Non-Emergent Contact Non-Emergency issues call your: Primary Care Provider, Surgeon Call Non-Emergent contact if: temperature is above 101.5, your pain is not controlled, wound has increased drainage, wound has increased redness . "Provider Documentation" section prepared by Agatha Nova. . VTE Core Measure Inpt VTE Proph given/why not?: SCD's
--- NOTE | 2017-05-02 08:50 | DIAGNOSTIC IMAGING REPORT ---
CHEST ONE VIEW PORTABLE CLINICAL HISTORY: s/p port placement tube position COMPARISON STUDY: 03/08/2017 FINDINGS: Findings of mildly progressive components of congestive failure. Central catheter placed in this. Vena cava. No evidence pneumothorax. IMPRESSION: Central catheter place in superior vena cava. No evidence pneumothorax. Mild progressive components of congestive failure The above report was generated using voice recognition software. It may contain grammatical, syntax or spelling errors. Electronically signed by: Arron Howard M.D. 05/02/2017 8:48 AM Dictated Date/Time: 05/02/2017 8:47 AM
--- NOTE | 2017-05-02 08:52 | Anesthesiology Progress Note ---
Anesthesia Post Op Note Date & Time May 02, 2017 at 08:51 Vital Signs Pain Intensity: 0 Vital Signs Past 12 Hours Date Time Temp Pulse Resp B/P (MAP) Pulse Ox O2 Delivery O2 Flow Rate FiO2 05/02/17 08:40 36.4 66 16 130/55 98 Room Air 05/02/17 08:30 67 16 119/52 97 Room Air 05/02/17 08:20 36.5 71 16 118/56 97 Room Air 05/02/17 05:42 36.7 73 20 181/61 (101) 97 Room Air Notes Mental Status: alert / awake / arousable, participated in evaluation Pt Amnestic to Procedure: Yes Nausea / Vomiting: adequately controlled Pain: adequately controlled Airway Patency, RR, SpO2: stable & adequate BP & HR: stable & adequate Hydration State: stable & adequate Anesthetic Complications: no major complications apparent
[2017-05-02 09:00] VITALS: BP 136/48; PULSE 77; TEMP 36.5; O2SAT 96
[2017-05-02 09:30] VITALS: BP 127/54; PULSE 67; TEMP 36.6; O2SAT 96
== END 2017-05-02 09:48 | disposition home or self-care (01) ==
LOC: C.ACU 05:01
PROVIDERS: ATTEND Surgery
DX: C18.9 Malignant neoplasm of colon, unspecified (principal); I44.1 Atrioventricular block, second degree; I35.1 Nonrheumatic aortic (valve) insufficiency; M19.90 Unspecified osteoarthritis, unspecified site; R13.10 Dysphagia, unspecified; E78.00 Pure hypercholesterolemia, unspecified; K44.9 Diaphragmatic hernia without obstruction or gangrene; Z90.49 Acquired absence of other specified parts of digestive tract; Z79.82 Long term (current) use of aspirin

== ENCOUNTER → 2017-06-19 | Outpatient (CLI) | payer OTHER ==
[~2017-06-19] MED LIST changes: +FERR325T5
== END | disposition home or self-care (01) ==
LOC: C.LABSPEC 17:14
PROVIDERS: ATTEND Urology
DX: R39.9 Unspecified symptoms and signs involving the genitourinary system (principal)

== ENCOUNTER 2017-07-28 16:58 | Emergency (ER) | payer OTHER ==
[~2017-07-28] VITALS: Ht 161.3 cm; Wt 59.7 kg
[~2017-07-28 16:58] MED LIST changes: +ATOR10TA82 PO; -ATOR10TA88 PO
[2017-07-28 17:04] VITALS: TEMP 36.8; Ht 161.3 cm; Wt 59.7 kg
[2017-07-28] MEDS ORDERED: PRED20TA2 PO (17:35)
[2017-07-28 17:38] VITALS: BP 130/80; PULSE 124; O2SAT 95
--- NOTE | 2017-07-29 00:56 | EMERGENCY ROOM VISIT NOTE ---
ED Visit Note First contact with patient: 17:12 Chief Complaint: I have an itchy painful rash. History of Present Illness: Ms. Segundo an 87-year-old white female who ambulates into the ED complaining of an itchy, painful rash on her abdomen. Currently patient is on chemotherapy for a colon cancer. She reports approximately a week ago she developed a rash on her hands and was seen by her PCP and was given steroid cream and her rash is almost completely resolved. Patient reports approximately 2 days ago she started developing a burning sensation over the right side of the abdomen. She then reports she had an erythematous skin eruption that she reports initially it looked little clear pimples. She reports after the pimple likely braxton start displaying she reports her skin became itchy. Over the last 24 hours she reports spreading of her skin lesion over to the left side of the abdomen, throughout the lower abdomen and suprapubic area and around to the back. Currently she continues to describe her discomfort with her pain as a burning sensation. She rates this discomfort 8/10. The pain worsens with palpation and itching. She has not identified any alleviating factors related to the pain. She has used her steroid cream without relief of her discomfort. She denies any associated symptoms including fevers, chills, sweats, upper respiratory tract symptoms, cough, wheezing, shortness of breath, lip swelling, throat swelling, difficulty swallowing, cough, chest pain/discomfort, abdominal pain/discomfort, decreased appetite, nausea, vomiting. Review of Systems: As noted above in history of present illness. 8 body systems were reviewed and found to be negative as noted above. Past Medical History: (1) Colonic mass (2) DVT prophylaxis (3) Gram negative sepsis (4) HTN (hypertension) (5) Interstitial cystitis (6) Intra-abdominal fluid collection (7) Leukocytosis Surgical Problems: (1) Hx of cervical polypectomy Current Medications: Medications Dose Route/Sig Max Daily Dose Days Date Category Dose Instructions Ferrous Sulfate 325 Mg Tab DAILY 05/02/17 Reported Claritin (Loratadine) 10 Mg Tab 10 Mg PO QAM 04/29/17 Reported Lipitor (Atorvastatin Calcium) 10 Mg Tab 10 Mg PO HS 04/29/17 Reported Pyridium (Phenazopyridine HCl) 200 Mg Tab 200 Mg PO TID PRN 04/29/17 Reported Methenamine Hippurate 1 Gm Tab 1 Tab PO HS 04/29/17 Reported Kp Ferrous Sulfate (Ferrous Sulfate) 325 Mg Tab 1 Tab PO QAM 30 04/29/17 Reported Elmiron (Pentosan Polysulfate Sodium) 100 Mg Cap 100 Mg PO QAM 04/29/17 Reported Ventolin Hfa (Albuterol) 200 Puffs/37738 Mcg Aers 2 Puff INH Q4 PRN 12/01/16 Reported Zaditor 0.025% Oph (Ketotifen Fumarate (Ophth)) 0.025 % Han 1 Drop OP Q12H 11/14/16 Reported Breo Ellipta (Fluticasone Furoate-Vilanterol) 1 Inh Inh 1 Puff INH DAILY PRN 10/22/16 Reported Clobetasol Propionate Cream 0.05% (Clobetasol Propionate) 90 Appln/30 Gm Cr 1 Appln EXT Q2D 09/01/15 Reported HS Prilosec (Omeprazole) 20 Mg Cap 20 Mg PO QAM 05/08/15 Reported Norvasc (Amlodipine Besylate) 10 Mg Tab 10 Mg PO QAM 05/08/15 Reported Micardis (Telmisartan) 80 Mg Tab 80 Mg PO QAM 08/20/12 Reported Allergies to Medications: Acetaminophen, azithromycin, beta blockers, ciprofloxacin, diltiazem, hydralazine, hydrochlorothiazide, hydrocodone, metronidazole, meperidine, methenamine, nitrofurantoin, prochlorperazine, quinine, spironolactone, nifedipine, lisinopril, simvastatin, losartan, valdecoxib, phenothiazines, quinolones, sulfa. Social History: Patient is not employed; she feels safe in her home environment ; she denies tobacco and alcohol use. Physical Examination: Vital Signs: Date Time Temp Pulse Resp B/P (MAP) Pulse Ox O2 Delivery O2 Flow Rate FiO2 07/28/17 17:04 36.8 124 18 130/80 95 Room Air GENERAL: 87-year-old female in mild distress due to symptoms, nontoxic-appearing , afebrile and hemodynamically stable. NEUROLOGICAL: Awake, alert and oriented to person, place and time. Answering questions appropriately and following commands. Normal gait. Good hand eye coordination. SKIN: Warm, dry and pink. Abdomen: Diffusely over both sides of the abdomen excluding the central portion of the abdomen patient has a dry, erythematous, well demarcated area of erythema. More pronounced on the right than the left. No vesicles present. The border of these lesions are slightly elevated. This skin eruption continues down through the bilateral pelvic area and there is no clear and centrally. It then also wraps around the abdomen and into the lower bilateral paraspinous musculature. There are multiple areas that are excoriated but none are actively bleeding. The skin is warm to touch but not hot. It does not appear cellulitic. Patient has cover the area with an over- the-counter medication that has caused the skin to appear pink. No lymphangitis. HEENT: Atraumatic and normocephalic. PERRLA. Sclera white and conjunctiva pink. No drainage from naris. Oral cavity moist and pink. No lip, tongue or airway swelling. Pharynx is nonerythematous or edematous. Speech normal. No lymphadenopathy. Trachea midline. No jugular venous distention. THORAX: Lungs sounds are clear to auscultation and equal bilaterally with symmetrical chest wall. No wheezing, rales or rhonchi. ABDOMEN: Flat, soft and nontender. Positive bowel sounds in all quadrants. No guarding, rigidity or organomegaly. EXTREMITIES: Moves all extremities well on command and with purpose. All distal neurovascular statuses are intact and equal bilaterally. No calf tenderness or cords. ED Course: Patient is assessed as noted above. Patient's medication list was reviewed. Patient's case was reviewed with Dr. Rueda; in apparently assessed the patient we agreed on diagnostic approach, treatment, disposition and plan. Patient was educated about today's findings and instructed on her treatment plan ; she verbalized understanding and agreement with this plan. Clinical Impression: Contact dermatitis. Decision-Making: Initially my differential diagnosis I considered herpes zoster , contact dermatitis, eczema, tinea infection and other causes. Disposition: Patient discharged home in stable condition; prior to departure she was reassessed and subjectively reported she was feeling the same. Plan: Patient was encouraged to continue current medications as prescribed. Patient was prescribed 20 mg of prednisone once a day for 4 days. Patient was encouraged use 12.5 mg of Benadryl by mouth for itching; she was also encouraged use cool compresses on areas of severe itching. Patient was encouraged to follow-up with her primary care physician for recheck. Patient was encouraged return ED for any worsening rash, worsening pain, fevers or any new/concerning symptoms.
== END 2017-07-28 17:38 | disposition home or self-care (01) ==
LOC: C.EDB 16:58 → C.EDD 17:38
DX: L25.9 Unspecified contact dermatitis, unspecified cause (principal); C18.9 Malignant neoplasm of colon, unspecified; I10 Essential (primary) hypertension; Z86.19 Personal history of other infectious and parasitic diseases; Z98.890 Other specified postprocedural states; Z79.899 Other long term (current) drug therapy

== ENCOUNTER → 2017-08-26 | Outpatient (CLI) | payer OTHER ==
[2017-08-26 12:14] LABS: BASO % 0.9 %; BASO ABS # 0.05 K/uL (0-0.2); COMPLETE YES; EOS % 6.9 %; HEMATOCRIT 35.2 % (37-47); IG% 0.2 %; LYMPH % 37.6 %; LYMPH ABS # 2.08 K/uL (1.2-3.4); MEAN CELL VOLUME 103.2 fL (80-100); MEAN CORPUSCULAR HEMOGLOBIN 33.1 pg (25-34); MEAN CORPUSCULAR HGB CONC 32.1 g/dl (32-36); MEAN PLATELET VOLUME 10.1 fL (7.4-10.4); MONO % 6.3 %; NEUT % 48.1 %; PLATELET COUNT 318 K/uL (130-400); RED BLOOD COUNT 3.41 M/uL (4.2-5.4); WHITE BLOOD COUNT 5.53 K/uL (4.8-10.8)
[2017-08-26 12:27] LABS: ALT/SGPT 20 U/L (12-78); AST/SGOT 19 U/L (15-37); BLOOD UREA NITROGEN 21 mg/dl (7-18); CALCIUM 8.9 mg/dl (8.5-10.1); CARBON DIOXIDE 28 mmol/L (21-32); CHLORIDE 104 mmol/L (98-107); CREATININE 0.94 mg/dl (0.60-1.20); GLUCOSE 103 mg/dl (70-99); POTASSIUM 4.1 mmol/L (3.5-5.1); SODIUM 138 mmol/L (136-145)
[2017-08-26 12:29] LABS: ALB/GLOB RATIO 0.7 (0.9-2); ALKALINE PHOSPHATASE 103 U/L (45-117)
== END | disposition home or self-care (01) ==
LOC: C.LABBFT 09:03
PROVIDERS: ATTEND Internal Medicine Hematology & Oncology
DX: C18.3 Malignant neoplasm of hepatic flexure (principal)

== ENCOUNTER → 2017-10-10 | Outpatient (CLI) | payer OTHER | END | disposition home or self-care (01) | LOC: C.LABBFT 09:28 | PROVIDERS: ATTEND Urology | DX: R30.0 Dysuria (principal); N39.0 Urinary tract infection, site not specified ==

== ENCOUNTER 2017-11-16 10:26 | Emergency (ER) | payer OTHER ==
[~2017-11-16] VITALS: Ht 160 cm; Wt 64.0 kg
[2017-11-16 10:28] VITALS: TEMP 36.4; Ht 160 cm; Wt 64.0 kg
[2017-11-16] MEDS ORDERED: SODIUM CHLORIDE 0.9% 1000ML 1,000 ML IV STA (10:42)
[2017-11-16] MEDS ORDERED: ONDANSETRON INJ 2 MG/ML 2 ML VIAL IV STA (10:42)
--- NOTE | 2017-11-16 10:50 | EMERGENCY ROOM VISIT NOTE ---
History Report prepared by Jeremy: Ebonie Abraham Under the Supervision of: Dr. Trevor Daugherty D.O. First contact with patient: 10:34 Chief Complaint: FLANK PAIN Stated Complaint: PAIN IN LEFT SIDE History of Present Illness The patient is a 87 year old female who presents to the Emergency Room with complaints of constant left sided flank pain beginning three days ago. The patient states her pain worsens when she moves. She states he pain does not radiated anywhere. She notes some abdominal pain. The patient states she took Tylenol with minimal relief. The patient has a history of non-metastatic colon cancer. She states she is currently on chemotherapy. She denies any leg pain, leg swelling, or chest pain. The patient has no history of kidney stones. Source of History: patient Onset: three days ago Position: other (left flank) Quality: other (non-radiating) Timing: constant Associated Symptoms: + abdominal pain, No chest pain Review of Systems See HPI for pertinent positives & negatives. A total of 10 systems reviewed and were otherwise negative. Past Medical & Surgical Medical Problems: (1) Colonic mass (2) DVT prophylaxis (3) Gram negative sepsis (4) HTN (hypertension) (5) Interstitial cystitis (6) Intra-abdominal fluid collection (7) Leukocytosis Surgical Problems: (1) Hx of cervical polypectomy Family History FHx: cancer Hypertension Social History Smoking Status: Never Smoker Alcohol Use: none Drug Use: none Marital Status: Housing Status: lives with significant other Occupation Status: retired Current/Historical Medications Scheduled Amlodipine (Norvasc), 10 MG PO QAM Atorvastatin (Lipitor), 10 MG PO HS Ferrous Sulfate (Kp Ferrous Sulfate), 1 TAB PO QAM Ibuprofen Tab (Advil), 200 MG PO UD Ketotifen Fumarate (Ophth) (Zaditor 0.025% Oph), 1 DROP OP Q12H Loratadine (Claritin), 10 MG PO QAM Methenamine Hippurate (Methenamine Hippurate), 1 TAB PO HS Omeprazole (Prilosec), 20 MG PO QAM Pentosan Polysulfate Sodium (Elmiron), 100 MG PO QAM Telmisartan (Micardis), 40 MG PO QAM Scheduled PRN Diphenoxylate/Atropine (Lomotil), 1 TAB PO QID PRN for Diarrhea Fluticasone Furoate-Vilanterol (Breo Ellipta), 1 PUFF INH DAILY PRN for Shortness of Breath Ondansetron Hcl (Zofran), 8 MG PO Q8H PRN for Nausea Phenazopyridine HCl (Pyridium), 200 MG PO TID PRN for PRN Pyridoxine (Vitamin B6), 100 MG PO DAILY PRN for LEG CRAMPS Tramadol (Ultram), 1 TAB PO TID PRN for Severe Pain Allergies Coded Allergies: Clindamycin (Unverified Allergy, Severe, CHEST PAIN/UPSET STOMACH, 11/16/17) Diltiazem (Verified Allergy, Severe, TIGHTENING OF THROAT, 05/02/17) Doxycycline (Unverified Allergy, Intermediate, LIGHT HEADED/NAUSEA, 11/16/17 ) Hydralazine (Verified Allergy, Intermediate, RASH, 05/02/17) Azithromycin (Verified Allergy, Mild, PT UNSURE, 05/02/17) Hydrocodone (Verified Allergy, Mild, GI UPSET, 05/02/17) Meperidine (Verified Allergy, Mild, GI UPSET, 05/02/17) Prochlorperazine (Verified Allergy, Mild, "BODY SHAKES", 05/02/17) Acetaminophen (Verified Allergy, Unknown, GI SYMPTOMS-pt DENIES, 05/02/17) Ciprofloxacin (Verified Allergy, Unknown, GI SYMPTOMS, 05/02/17) Hydrochlorothiazide (Verified Allergy, Unknown, DYSURIA, 05/02/17) Losartan (Verified Allergy, Unknown, JITTERY,SJAKEY, 05/02/17) Nifedipine (Verified Allergy, Unknown, EXACERBATION INTERSTITIAL CYCSTITIS , 05/02/17) Nitrofurantoin (Verified Allergy, Unknown, RASH, 05/02/17) Quinine (Verified Allergy, Unknown, PT UNSURE, 05/02/17) Spironolactone (Verified Allergy, Unknown, RECTAL PRESSURE, PAIN, 05/02/17) Sulfa Antibiotics (Verified Allergy, Unknown, PATIENT UNSURE, 05/02/17) Terazosin (Verified Allergy, Unknown, LIGHTHEADEDNESS AND NAUSEA, 05/02/17) Quinolones (Verified Adverse Reaction, Intermediate, CIPRO- NAUSEA, NERVOUS, CHILLS, 05/02/17) Metronidazole (Verified Adverse Reaction, Mild, STOMACH PAIN, 05/02/17) Simvastatin (Verified Adverse Reaction, Mild, STOMACH PAIN, 05/02/17) Beta Adrenergic Blockers (Verified Adverse Reaction, Unknown, "Secondary AVB", 05/02/17) Lisinopril (Verified Adverse Reaction, Unknown, "INTOLERANCE" PER DR PENDLETON, 05/02/17) Methenamine (Verified Adverse Reaction, Unknown, STOMACH PAIN, 05/02/17) Phenothiazines (Verified Adverse Reaction, Unknown, SHAKEY, 05/02/17) Valdecoxib (Verified Adverse Reaction, Unknown, GI SYMPTOMS, 05/02/17) Physical Exam Vital Signs Date Time Temp Pulse Resp B/P (MAP) Pulse Ox O2 Delivery O2 Flow Rate FiO2 11/16/17 12:25 60 18 168/83 100 Room Air 11/16/17 11:41 65 11/16/17 11:30 68 18 206/74 100 Room Air 11/16/17 10:28 36.4 80 18 210/81 99 Room Air Physical Exam GENERAL: Patient is awake, alert, and very anxious appearing. Patient appears to be in pain. EYES: The conjunctivae are clear. The pupils are round and reactive. EARS, NOSE, MOUTH AND THROAT: The nose is without any evidence of any deformity. Mucous membranes are moist tongue is midline NECK: The neck is nontender and supple. RESPIRATORY: Normal respiratory effort is noted there is no evidence of wheezing rhonchi or rales CARDIOVASCULAR: Regular rate and rhythm noted there no murmurs rubs or gallops normal S1 normal S2 GASTROINTESTINAL: The abdomen is mildly distended with LUQ and LLQ tenderness to palpation, no guarding or rigidity BACK: No midline tenderness. Mild left CVA tenderness to percussion, ROM appeared intact. MUSCULOSKELETAL/EXTREMITIES: There is no evidence of gross deformity full range of motion is noted in the hips and shoulders SKIN: Pedal edema bilaterally. There is no obvious evidence of any rash. There are no petechiae, pallor or cyanosis noted. NEUROLOGIC: Patient is awake alert and oriented x3 strength is symmetric patellar reflexes are 2+ bilaterally Medical Decision & Procedures ER Provider Diagnostic Interpretation: Radiology results as stated below per my review and radiologist interpretation: ABD/PELVIS NO IV OR ORAL CONT FINDINGS: [employer] Instructor topogram: Unremarkable. Lung bases: Bibasilar subpleural cystic and reticular opacities consistent with honeycombing. Normal heart size. Coronary artery and aortic valve calcification. Small right pleural effusion with pleural thickening. Liver: Normal morphology. Hypodense lesion in the right hepatic lobe, indeterminate but possibly cyst. This is not well seen on the prior exam secondary to streak artifact. Patent hepatic vasculature. Biliary: No gross biliary ductal dilatation allowing for noncontrast technique. Normal gallbladder. Pancreas: Mild parenchymal atrophy. Spleen: Normal noncontrast appearance. Adrenal glands: Normal noncontrast appearance. Kidneys and ureters: Mild pelvocaliectasis bilaterally. No nephrolithiasis. Normal noncontrast appearance of renal parenchyma. The ureters are mildly dilated though no obstructing ureteral calculi are evident. Bladder: Normal. Pelvic organs: Normal noncontrast appearance. Bowel: Postsurgical changes of transverse colectomy with an claudia ascending colostomy. The descending colon is blind-ending proximally and has been fixed to the anterior peritoneum in the left mid abdomen. No bowel obstruction. No gross evidence of bowel wall thickening. Peritoneal cavity: No free fluid or intraperitoneal gas. Lymph nodes: No enlarged lymph nodes in the abdomen or pelvis. Vasculature: Atherosclerosis of the normal caliber abdominal aorta. Abdominal wall: No inflammatory change or fluid associated with the right mid abdomen colostomy or the left mid abdomen colonic fixation. Musculoskeletal: Degenerative changes of the spine. No destructive osseous lesion. Osteopenia. Interval development of a mild compression deformity of L1 most severely affecting the inferior endplate, new from prior exam. IMPRESSION: 1. Postsurgical changes of transverse colectomy with a right mid abdomen ostomy. No bowel obstruction or other complication. 2. Bilateral mild pelvocaliectasis and mild ureteral dilatation without evidence of obstructing mass or calculus. Correlate with urinalysis to exclude underlying infection. This may represent chronic flaccid urinary collecting systems. 3. Bibasilar honeycombing consistent with fibrosis could suggest underlying usual interstitial pneumonia among other etiologies. 4. Osteopenia with compression deformity of endplate of L1, new since the prior exam in December. Electronically signed by: Niraj Heaton M.D. CHEST ONE VIEW PORTABLE FINDINGS: Left subclavian Mediport terminates in the left brachiocephalic vein and has been accessed. Atherosclerosis of the aortic arch. Cardiac silhouette mildly enlarged. Reticular basilar predominant opacities. Pleural thickening or small right pleural effusion. No pneumothorax. Degenerative changes of the thoracic spine. Osteopenia suspected. Upper abdomen normal. IMPRESSION: 1. Basilar predominant reticular opacities suggest chronic lung disease or fibrosis though lung volumes are overall normal. This could relate to chronic aspiration among other etiologies. 2. Small right pleural effusion or pleural thickening. 3. Cardiomegaly. Electronically signed by: Niraj Heaton M.D. Laboratory Results 11/16/17 10:51 Red Blood Count 3.17, Mean Corpuscular Volume 100.9, Mean Corpuscular Hemoglobin 33.1, Mean Corpuscular Hemoglobin Concent 32.8, Mean Platelet Volume 9.2, Neutrophils (%) (Auto) 57.9, Lymphocytes (%) (Auto) 30.8, Monocytes (%) ( Auto) 5.9, Eosinophils (%) (Auto) 4.5, Basophils (%) (Auto) 0.7, Neutrophils # ( Auto) 2.56, Lymphocytes # (Auto) 1.36, Monocytes # (Auto) 0.26, Eosinophils # ( Auto) 0.20, Basophils # (Auto) 0.03 11/16/17 10:51 Test 11/16/17 10:51 11/16/17 11:00 White Blood Count 4.42 K/uL (4.8-10.8) Red Blood Count 3.17 M/uL (4.2-5.4) Hemoglobin 10.5 g/dL (12.0-16.0) Hematocrit 32.0 % (37-47) Mean Corpuscular Volume 100.9 fL (80-100) Mean Corpuscular Hemoglobin 33.1 pg (25-34) Mean Corpuscular Hemoglobin Concent 32.8 g/dl (32-36) Platelet Count 158 K/uL (130-400) Mean Platelet Volume 9.2 fL (7.4-10.4) Neutrophils (%) (Auto) 57.9 % Lymphocytes (%) (Auto) 30.8 % Monocytes (%) (Auto) 5.9 % Eosinophils (%) (Auto) 4.5 % Basophils (%) (Auto) 0.7 % Neutrophils # (Auto) 2.56 K/uL (1.4-6.5) Lymphocytes # (Auto) 1.36 K/uL (1.2-3.4) Monocytes # (Auto) 0.26 K/uL (0.11-0.59) Eosinophils # (Auto) 0.20 K/uL (0-0.5) Basophils # (Auto) 0.03 K/uL (0-0.2) RDW Standard Deviation 64.6 fL (36.4-46.3) RDW Coefficient of Variation 17.7 % (11.5-14.5) Immature Granulocyte % (Auto) 0.2 % Immature Granulocyte # (Auto) 0.01 K/uL (0.00-0.02) Anion Gap 8.0 mmol/L (3-11) Est Creatinine Clear Calc Drug Dose 41.6 ml/min Estimated GFR () 68.5 Estimated GFR (Non- 59.1 BUN/Creatinine Ratio 20.1 (10-20) Calcium Level 8.1 mg/dl (8.5-10.1) Total Bilirubin 0.6 mg/dl (0.2-1) Direct Bilirubin 0.2 mg/dl (0-0.2) Aspartate Amino Transf (AST/SGOT) 20 U/L (15-37) Alanine Aminotransferase (ALT/SGPT) 22 U/L (12-78) Alkaline Phosphatase 107 U/L (45-117) Total Protein 6.9 gm/dl (6.4-8.2) Albumin 3.0 gm/dl (3.4-5.0) Lipase 86 U/L (73-393) Urine Color YELLOW Urine Appearance CLEAR (CLEAR) Urine pH 6.0 (4.5-7.5) Urine Specific [place] 1.006 (1.000-1.030) Urine Protein NEG (NEG) Urine Glucose (UA) NEG (NEG) Urine Ketones NEG (NEG) Urine Occult Blood TRACE (NEG) Urine Nitrite NEG (NEG) Urine Bilirubin NEG (NEG) Urine Urobilinogen NEG (NEG) Urine Leukocyte Esterase TRACE (NEG) Urine WBC (Auto) 1-5 /hpf (0-5) Urine RBC (Auto) 0-4 /hpf (0-4) Urine Hyaline Casts (Auto) 0 /lpf (0-5) Urine Epithelial Cells (Auto) 10-20 /lpf (0-5) Urine Bacteria (Auto) NEG (NEG) Laboratory results per my review. Medications Administered Medications (Trade) Dose Ordered Sig/Aleksander Route Start Time Stop Time Status Last Admin Dose Admin Sodium Chloride 1,000 ml @ 999 mls/hr Q1H1M STAT IV 11/16/17 10:42 11/16/17 11:42 DC 11/16/17 11:28 999 MLS/HR Ondansetron HCl (Zofran Inj) 4 mg NOW STAT IV 11/16/17 10:42 11/16/17 10:44 DC 11/16/17 10:55 4 MG Morphine Sulfate (MoRPHine SULFATE INJ) 4 mg Q15M PRN IV 11/16/17 10:45 11/30/17 10:44 11/16/17 11:47 4 MG ED Course 1038: The patient was evaluated in room C3. A complete history and physical examination were performed. 1042: Ordered Zofran Inj 4 mg IV, NSS 1,000 ml @ 999 mls/hr IV. 1045: Ordered Morphine Sulfate 4 mg IV. 1235: Upon reevaluation, the patient is resting comfortably. I discussed the results and treatment plan with her. She verbalized agreement of the treatment plan. The patient was discharged home. Medical Decision Differential diagnosis: Etiologies such as renal colic, appendicitis, diverticulitis, mesenteric ischemia, aortic pathology, infections, inflammatory bowel disease, PUD, biliary pathology, UTI, as well as others were entertained. Nursing notes reviewed. Additional history is obtained from the patient's significant other. The patient is an 87-year-old female who presented to the emergency department for an evaluation of back pain. The patient's pain is reproducible with movement. She also had some left upper abdominal pain. The patient has a history of colon cancer and has an ostomy. I reviewed the patient's laboratory and radiographic studies with her. She appears to have no signs of ureteral calculi. Her urinalysis did not appear to be consistent with a urine infection. Her CAT scan did show a new compression fracture which may explain the patient's pain. At this time there is no signs of zoster. The patient states that she has been on tramadol in the past so she was encouraged to keep taking his medication for stronger pain but continue [id number] medications as instructed for mild pain. She was encouraged to rest and avoid any strenuous activity. I also encouraged her to call her family doctor to schedule a follow-up appointment or return to the emergency department immediately if symptoms change worsen or the need arises. Medication Reconcilliation Current Medication List: was personally reviewed by me Blood Pressure Screening Patient's blood pressure: Elevated blood pressure Blood pressure disposition: Elevated BP felt to be situational Impression Primary Impression: Back pain Additional Impression: Compression fracture of L1 lumbar vertebra Scribe Attestation The scribe's documentation has been prepared under my direction and personally reviewed by me in its entirety. I confirm that the note above accurately reflects all work, treatment, procedures, and medical decision making performed by me. Departure Information Dispostion Home / Self-Care Prescriptions Tramadol (Ultram) 50 Mg Tab 1 TAB PO TID Y for Severe Pain for 30 Days, #25 TAB Prov: Trevor Daugherty, DO 11/16/17 Referrals Filiberto Pendleton M.D. (PCP) Forms HOME CARE DOCUMENTATION FORM, IMPORTANT VISIT INFORMATION Patient Instructions ED Fx Comp Vertebral, My [facility] Additional Instructions Rest and avoid any strenuous activity. Call your family doctor to schedule a follow-up appointment. Continue all medications as prescribed. Return to the emergency department if symptoms worsen or if the need arises. Problem Qualifiers
[2017-11-16] MEDS: MoRPHine SULFATE 4 MG/ML 1 ML CARP\\VIAL IV PRN ×2 (10:56→11:47)
[2017-11-16 11:02] LABS: BASO % 0.7 %; BASO ABS # 0.03 K/uL (0-0.2); EOS % 4.5 %; HEMOGLOBIN 10.5 g/dL (12.0-16.0); IG# 0.01 K/uL (0.00-0.02); LYMPH % 30.8 %; LYMPH ABS # 1.36 K/uL (1.2-3.4); MEAN CELL VOLUME 100.9 fL (80-100); MEAN CORPUSCULAR HEMOGLOBIN 33.1 pg (25-34); MEAN CORPUSCULAR HGB CONC 32.8 g/dl (32-36); MEAN PLATELET VOLUME 9.2 fL (7.4-10.4); MONO % 5.9 %; MONO ABS # 0.26 K/uL (0.11-0.59); NEUT % 57.9 %; NEUT ABS # 2.56 K/uL (1.4-6.5); PLATELET COUNT 158 K/uL (130-400); RED CELL DISTRIBUTION WIDTH CV 17.7 % (11.5-14.5); RED CELL DISTRIBUTION WIDTH SD 64.6 fL (36.4-46.3); WHITE BLOOD COUNT 4.42 K/uL (4.8-10.8)
--- NOTE | 2017-11-16 11:07 | DIAGNOSTIC IMAGING REPORT ---
CHEST ONE VIEW PORTABLE CLINICAL HISTORY: 87 years-old Female presenting with ABDOMINAL PAIN/GI. TECHNIQUE: Portable upright AP view of the chest was obtained. COMPARISON: 05/02/2017. FINDINGS: Left subclavian Mediport terminates in the left brachiocephalic vein and has been accessed. Atherosclerosis of the aortic arch. Cardiac silhouette mildly enlarged. Reticular basilar predominant opacities. Pleural thickening or small right pleural effusion. No pneumothorax. Degenerative changes of the thoracic spine. Osteopenia suspected. Upper abdomen normal. IMPRESSION: 1. Basilar predominant reticular opacities suggest chronic lung disease or fibrosis though lung volumes are overall normal. This could relate to chronic aspiration among other etiologies. 2. Small right pleural effusion or pleural thickening. 3. Cardiomegaly. Electronically signed by: Niraj Heaton M.D. 11/16/2017 11:06 AM Dictated Date/Time: 11/16/2017 11:04 AM
[2017-11-16] MEDS ORDERED: TELM40TA PO (11:27)
[2017-11-16] MEDS ORDERED: PYRI100T4 PO (11:31)
[2017-11-16 11:36] LABS: CALCIUM 8.1 mg/dl (8.5-10.1); CREATININE 0.89 mg/dl (0.60-1.20); POTASSIUM 3.5 mmol/L (3.5-5.1)
[2017-11-16] MEDS ORDERED: ONDA8TAB6 PO (11:36)
[2017-11-16] MEDS ORDERED: DIPH-416 PO (11:36)
[2017-11-16 11:39] LABS: TOTAL PROTEIN 6.9 gm/dl (6.4-8.2)
[2017-11-16] MEDS ORDERED: IBUP-103 PO (11:41)
--- NOTE | 2017-11-16 11:41 | DIAGNOSTIC IMAGING REPORT ---
ABD/PELVIS NO IV OR ORAL CONT CLINICAL HISTORY: 87 years-old Female presenting with left flank pain, history of chemotherapy for colon cancer with ostomy. TECHNIQUE: Multidetector CT of the abdomen and pelvis was performed without the use of intravenous contrast. IV contrast: None. A dose lowering technique was used consistent with the principles of ALARA (as low as reasonably achievable). COMPARISON: 12/21/2016. CT DOSE (mGy.cm): The estimated cumulative dose is 359.43 mGy.cm. FINDINGS: Parts Room Clerk topogram: Unremarkable. Lung bases: Bibasilar subpleural cystic and reticular opacities consistent with honeycombing. Normal heart size. Coronary artery and aortic valve calcification. Small right pleural effusion with pleural thickening. Liver: Normal morphology. Hypodense lesion in the right hepatic lobe, indeterminate but possibly cyst. This is not well seen on the prior exam secondary to streak artifact. Patent hepatic vasculature. Biliary: No gross biliary ductal dilatation allowing for noncontrast technique. Normal gallbladder. Pancreas: Mild parenchymal atrophy. Spleen: Normal noncontrast appearance. Adrenal glands: Normal noncontrast appearance. Kidneys and ureters: Mild pelvocaliectasis bilaterally. No nephrolithiasis. Normal noncontrast appearance of renal parenchyma. The ureters are mildly dilated though no obstructing ureteral calculi are evident. Bladder: Normal. Pelvic organs: Normal noncontrast appearance. Bowel: Postsurgical changes of transverse colectomy with an claudia ascending colostomy. The descending colon is blind-ending proximally and has been fixed to the anterior peritoneum in the left mid abdomen. No bowel obstruction. No gross evidence of bowel wall thickening. Peritoneal cavity: No free fluid or intraperitoneal gas. Lymph nodes: No enlarged lymph nodes in the abdomen or pelvis. Vasculature: Atherosclerosis of the normal caliber abdominal aorta. Abdominal wall: No inflammatory change or fluid associated with the right mid abdomen colostomy or the left mid abdomen colonic fixation. Musculoskeletal: Degenerative changes of the spine. No destructive osseous lesion. Osteopenia. Interval development of a mild compression deformity of L1 most severely affecting the inferior endplate, new from prior exam. IMPRESSION: 1. Postsurgical changes of transverse colectomy with a right mid abdomen ostomy. No bowel obstruction or other complication. 2. Bilateral mild pelvocaliectasis and mild ureteral dilatation without evidence of obstructing mass or calculus. Correlate with urinalysis to exclude underlying infection. This may represent chronic flaccid urinary collecting systems. 3. Bibasilar honeycombing consistent with fibrosis could suggest underlying usual interstitial pneumonia among other etiologies. 4. Osteopenia with compression deformity of endplate of L1, new since the prior exam in December. Electronically signed by: Niraj Heaton M.D. 11/16/2017 11:40 AM Dictated Date/Time: 11/16/2017 11:29 AM
[2017-11-16] MEDS ORDERED: TRAM-10 PO (12:20)
[2017-11-16 12:49] VITALS: BP 188/69; PULSE 66; O2SAT 99
== END 2017-11-16 12:51 | disposition home or self-care (01) ==
LOC: C.EDB 10:28 → C.EDC 12:51
DX: M48.56XA Collapsed vertebra, not elsewhere classified, lumbar region, initial encounter for fracture (principal); I10 Essential (primary) hypertension; Z85.038 Personal history of other malignant neoplasm of large intestine; Z93.3 Colostomy status; Z79.899 Other long term (current) drug therapy; Z88.1 Allergy status to other antibiotic agents; Z88.8 Allergy status to other drugs, medicaments and biological substances; Z88.6 Allergy status to analgesic agent; Z88.5 Allergy status to narcotic agent; Z88.2 Allergy status to sulfonamides; Z80.9 Family history of malignant neoplasm, unspecified; Z82.49 Family history of ischemic heart disease and other diseases of the circulatory system

== ENCOUNTER → 2017-12-03 | Outpatient (CLI) | payer OTHER ==
[~2017-12-03] MED LIST changes: -CLBCRM30 EXT; +DIPH-416 PO; -FERR325T5; +IBUP-103 PO; +ONDA-170 PO; +PYRI100T4 PO; +TELM40TA PO; -TELM80TA PO; +TRAM-10 PO; -VNTHFA/IN INH
[2017-12-03 12:28] LABS: BASO % 1.5 %; BASO ABS # 0.09 K/uL (0-0.2); EOS % 6.3 %; EOS ABS # 0.37 K/uL (0-0.5); HEMATOCRIT 36.1 % (37-47); HEMOGLOBIN 11.5 g/dL (12.0-16.0); IG# 0.01 K/uL (0.00-0.02); LYMPH % 31.8 %; LYMPH ABS # 1.88 K/uL (1.2-3.4); MEAN CELL VOLUME 105.9 fL (80-100); MEAN CORPUSCULAR HEMOGLOBIN 33.7 pg (25-34); MEAN CORPUSCULAR HGB CONC 31.9 g/dl (32-36); MEAN PLATELET VOLUME 10.7 fL (7.4-10.4); MONO % 10.6 %; MONO ABS # 0.63 K/uL (0.11-0.59); NEUT % 49.6 %; NEUT ABS # 2.94 K/uL (1.4-6.5); PLATELET COUNT 269 K/uL (130-400); RED CELL DISTRIBUTION WIDTH CV 17.1 % (11.5-14.5); RED CELL DISTRIBUTION WIDTH SD 66.2 fL (36.4-46.3); WHITE BLOOD COUNT 5.92 K/uL (4.8-10.8)
[2017-12-03 13:14] LABS: ALBUMIN 2.8 gm/dl (3.4-5.0); ALT/SGPT 24 U/L (12-78); AST/SGOT 16 U/L (15-37); BLOOD UREA NITROGEN 17 mg/dl (7-18); CARBON DIOXIDE 31 mmol/L (21-32); CREATININE 0.95 mg/dl (0.60-1.20); GLUCOSE 141 mg/dl (70-99); POTASSIUM 3.7 mmol/L (3.5-5.1); SODIUM 136 mmol/L (136-145)
[2017-12-03 13:16] LABS: ALKALINE PHOSPHATASE 151 U/L (45-117); TOTAL PROTEIN 7.3 gm/dl (6.4-8.2)
== END | disposition home or self-care (01) ==
LOC: C.LABBFT 10:27
PROVIDERS: ATTEND Internal Medicine Hematology & Oncology
DX: C18.3 Malignant neoplasm of hepatic flexure (principal)

== ENCOUNTER → 2017-12-18 | Outpatient (CLI) | payer OTHER ==
[~2017-12-18] MED LIST changes: +CALCTAB7 PO; +CEFU1TAB36 PO; +CLBCRM30 EXT; +GABA-113 PO; +LDDP5 TD; +MCLIN; +VTMD1000 PO
== END | disposition home or self-care (01) ==
LOC: C.LABSPEC 17:26
PROVIDERS: ATTEND Urology
DX: R30.0 Dysuria (principal)

== ENCOUNTER 2017-12-24 16:27 | Observation (INO) | payer OTHER ==
[~2017-12-24] VITALS: Ht 160 cm; Wt 57.8 kg
[~2017-12-24 16:27] MED LIST changes: -CALCTAB7 PO; -CEFU1TAB36 PO; -CLBCRM30 EXT; -GABA-113 PO; -LDDP5 TD; -MCLIN; -TRAM-10 PO; -VTMD1000 PO
[2017-12-24] MEDS ORDERED: SODIUM CHLORIDE 0.9% 1000ML 1,000 ML IV STA (18:09)
[2017-12-24] MEDS ORDERED: MoRPHine SULFATE 2 MG/ML CARP IV STA (18:09)
[2017-12-24] MEDS ORDERED: CYCLOBENZAPRINE HCL 10 MG TAB PO STA (18:09)
[2017-12-24] MEDS ORDERED: KETOROLAC TROMETHAMINE 30 MG/ML VIAL IV STA (18:09)
[2017-12-24] MEDS ORDERED: GABA-113 PO (18:24)
[2017-12-24] MEDS ORDERED: TRAM-10 PO (18:24)
[2017-12-24] MEDS ORDERED: CEFU1TAB36 PO (18:24)
[2017-12-24] MEDS ORDERED: CLBCRM30 EXT (18:24)
[2017-12-24] MEDS ORDERED: TELMISARTAN 40 MG TAB PO STA (18:51)
--- NOTE | 2017-12-24 19:03 | EMERGENCY ROOM VISIT NOTE ---
History Report prepared by Jeremy: Trina Ramírez Under the Supervision of: Dr. Tabatha Tripp M.D. First contact with patient: 18:00 Chief Complaint: BACK PAIN Stated Complaint: BACK PAIN History of Present Illness The patient is an 87 year old female who presents to the Emergency Room with complaints of worsening back pain starting 3 days ago. The patient states that she came to the hospital a month ago and had a CT done that found a small fracture above her vertebrae. She states that she did not fall originally and has not fallen since. She reports that her PCP and oncologist prescribed her gabapentin and Tramadol. She reports that they are not helping much. She states that she thought it was getting better, but it has gotten worse. The patient states that the pain is in the original spot in her lower back and feels like spasms. She states the pain is worse when walking. She currently rates her pain as a 10/10 in severity. The patient complains of the pain radiating into her abdomen. The patient denies a fever and the pain going down her legs. She notes that she had colon cancer, but is in remission. She states she as a colostomy bag. Source of History: patient Onset: 3 days ago Position: back Symptom Intensity: 10/10 Timing: worsening Modifying Factors (Worsening): movement (walking) Associated Symptoms: + abdominal pain, No fevers Note: The patient denies the pain radiating down her legs. Review of Systems See HPI for pertinent positives & negatives. A total of 10 systems reviewed and were otherwise negative. Past Medical & Surgical Medical Problems: (1) Colonic mass (2) DVT prophylaxis (3) Gait abnormality (4) Gram negative sepsis (5) HTN (hypertension) (6) Interstitial cystitis (7) Intra-abdominal fluid collection (8) Leukocytosis Surgical Problems: (1) Hx of cervical polypectomy Family History FHx: cancer Hypertension Social History Smoking Status: Never Smoker Alcohol Use: none Drug Use: none Marital Status: Housing Status: lives with family Occupation Status: retired Current/Historical Medications Scheduled Atorvastatin (Lipitor), 10 MG PO HS Cefuroxime Axetil (Cefuroxime Axetil), 1 TAB PO BID Clobetasol Propionate (Clobetasol Propionate Cream 0.05%), 1 APPLN EXT BID Ferrous Sulfate (Kp Ferrous Sulfate), 1 TAB PO BIDM Gabapentin (Neurontin), 300 MG PO TID Ibuprofen Tab (Advil), 200 MG PO UD Loratadine (Claritin), 10 MG PO QAM Methenamine Hippurate (Methenamine Hippurate), 1 TAB PO HS Omeprazole (Prilosec), 20 MG PO QAM Pentosan Polysulfate Sodium (Elmiron), 100 MG PO BID Telmisartan (Micardis), 40 MG PO QAM Scheduled PRN Fluticasone Furoate-Vilanterol (Breo Ellipta), 1 PUFF INH DAILY PRN for Shortness of Breath Ondansetron Hcl (Zofran), 8 MG PO Q8H PRN for Nausea Phenazopyridine HCl (Pyridium), 200 MG PO TID PRN for PRN Pyridoxine (Vitamin B6), 100 MG PO DAILY PRN for LEG CRAMPS Tramadol (Ultram), 50 MG PO Q6 PRN for Pain Allergies Coded Allergies: Diltiazem (Verified Allergy, Severe, TIGHTENING OF THROAT, 12/24/17) Hydralazine (Verified Allergy, Intermediate, RASH, 12/24/17) Azithromycin (Verified Allergy, Mild, PT UNSURE, 12/24/17) Nifedipine (Verified Allergy, Unknown, EXACERBATION INTERSTITIAL CYCSTITIS , 12/24/17) Nitrofurantoin (Verified Allergy, Unknown, RASH, 12/24/17) Quinine (Verified Allergy, Unknown, PT UNSURE, 12/24/17) Sulfa Antibiotics (Verified Allergy, Unknown, PATIENT UNSURE, 12/24/17) Clindamycin (Unverified Adverse Reaction, Severe, CHEST PAIN/UPSET STOMACH , 12/25/17) Doxycycline (Unverified Adverse Reaction, Intermediate, LIGHT HEADED/ NAUSEA, 12/25/17) Quinolones (Verified Adverse Reaction, Intermediate, CIPRO- NAUSEA, NERVOUS, CHILLS, 12/24/17) Hydrocodone (Verified Adverse Reaction, Mild, GI UPSET, 12/25/17) Meperidine (Verified Adverse Reaction, Mild, GI UPSET, 12/25/17) Metronidazole (Verified Adverse Reaction, Mild, STOMACH PAIN, 12/24/17) Prochlorperazine (Verified Adverse Reaction, Mild, "BODY SHAKES", 12/25/17) Simvastatin (Verified Adverse Reaction, Mild, STOMACH PAIN, 12/24/17) Beta Adrenergic Blockers (Verified Adverse Reaction, Unknown, "Secondary AVB", 12/24/17) Ciprofloxacin (Verified Adverse Reaction, Unknown, GI SYMPTOMS, 12/25/17) Hydrochlorothiazide (Verified Adverse Reaction, Unknown, DYSURIA, 12/25/17) Lisinopril (Verified Adverse Reaction, Unknown, "INTOLERANCE" PER DR COLON, 12/24/17) Losartan (Verified Adverse Reaction, Unknown, JITTERY,SJAKEY, 12/25/17) Methenamine (Verified Adverse Reaction, Unknown, STOMACH PAIN, 12/24/17) Phenothiazines (Verified Adverse Reaction, Unknown, SHAKEY, 12/24/17) Spironolactone (Verified Adverse Reaction, Unknown, RECTAL PRESSURE, PAIN , 12/25/17) Terazosin (Verified Adverse Reaction, Unknown, LIGHTHEADEDNESS AND NAUSEA , 12/25/17) Valdecoxib (Verified Adverse Reaction, Unknown, GI SYMPTOMS, 12/24/17) Physical Exam Vital Signs Date Time Temp Pulse Resp B/P (MAP) Pulse Ox O2 Delivery O2 Flow Rate FiO2 12/24/17 23:14 93 18 175/56 92 Room Air 12/24/17 21:51 79 18 159/67 92 Room Air 12/24/17 20:15 88 18 197/69 95 Room Air 12/24/17 18:43 92 19 178/70 94 Room Air 12/24/17 17:17 83 12/24/17 16:30 37.1 90 24 164/64 92 Room Air Physical Exam Vital signs reviewed. General: Well-appearing, elderly, in some discomfort HEENT: No scleral icterus, PERRLA, neck supple. Atraumatic. Cardiovascular: Regular rate and rhythm, no extra sounds. Pulmonary: Clear to auscultation bilaterally, normal work of breathing. Abdomen: Soft, nontender, nondistended, positive bowel sounds. Musculoskeletal: Atraumatic, no peripheral edema. Tenderness along the proximal lumbar spine. Pain with movement, but a negative straight leg raise bilaterally. No step-off, deformity, or swelling. Neurologic: Patient awake alert and oriented x 3, full strength in all 4 extremities. Cranial nerves 2 through 12 grossly intact. Skin: Warm, dry, no rash Medical Decision & Procedures ER Provider Diagnostic Interpretation: Radiology results as stated below per my review and radiologist interpretation: LUMBAR SPINE W/O CONTRAST CLINICAL HISTORY: 87 years-old Female with L1 compression fx, colon ca history. L1 compression deformity. Follow-up study. COMPARISON: CT abdomen and pelvis 11/16/2017 TECHNIQUE: Multiplanar, multi sequence MRI of the lumbar spine was performed without intravenous contrast. FINDINGS: The large field view book store associate localizer images demonstrate no gross abnormality. The exam is motion degraded. 40% anterior endplate compression deformity of the L1 vertebral body is present without significant retropulsion identified. Moderate associated bone marrow edema with mild cortication of the fracture lines ingesting subacute etiology. Mild paravertebral edema is also noted. No definite extension into the posterior elements. No additional acute fracture or subluxation. Mild bone marrow edema of L2, likely reactive. Conus medullaris terminates at the L1-L2 level. No aortic aneurysm or adenopathy. T12-L1: No central canal or neural foraminal stenosis. Mild posterior spondylitic spurring and facet arthrosis. L1-L2: No central canal or neural foraminal stenosis. Mild posterior spondylitic spurring and facet arthropathy with mild bilateral foraminal narrowing. L2-L3: Mild posterior spondylitic spurring, facet arthrosis and ligamentum flavum thickening without significant central canal or foraminal narrowing. L3-L4: Mild posterior spondylitic spurring, moderate facet arthrosis and ligamentum flavum thickening with small posterior disc bulge. There is flattening of the ventral thecal sac with mild bilateral foraminal narrowing. No significant central canal stenosis. L4-L5: Small posterior disc bulge flattens the ventral thecal sac. There is mild posterior spondylitic spurring with moderate facet arthrosis and ligamentum flavum thickening. No significant central canal narrowing. There is mild inferior bilateral foraminal narrowing. L5-S1: Mild posterior intervertebral disc space narrowing with posterior spondylitic spurring and small circumferential annular disc bulge with moderate facet arthrosis and ligamentum flavum thickening. Mild bilateral foraminal narrowing without significant central canal stenosis. IMPRESSION: 1. 40% anterior endplate compression deformity of the L1 vertebral body appears subacute in nature. No significant retropulsion, high-grade central canal or foraminal narrowing. 2. Mild bone marrow edema of the L2 vertebral body is likely reactive. 3. Multilevel discogenic degenerative changes, facet arthrosis and ligament of flavum thickening as above without high-grade central canal or foraminal narrowing. The above report was generated using voice recognition software. It may contain grammatical, syntax or spelling errors. Electronically signed by: Ruel Lovett M.D. 12/24/2017 10:32 PM Dictated Date/Time: 12/24/2017 10:25 PM Laboratory Results 12/24/17 19:43 Red Blood Count 3.59, Mean Corpuscular Volume 101.7, Mean Corpuscular Hemoglobin 33.1, Mean Corpuscular Hemoglobin Concent 32.6, Mean Platelet Volume 9.5, Neutrophils (%) (Auto) 65.7, Lymphocytes (%) (Auto) 22.1, Monocytes (%) ( Auto) 8.7, Eosinophils (%) (Auto) 2.8, Basophils (%) (Auto) 0.6, Neutrophils # ( Auto) 4.71, Lymphocytes # (Auto) 1.58, Monocytes # (Auto) 0.62, Eosinophils # ( Auto) 0.20, Basophils # (Auto) 0.04 12/24/17 19:43 Test 12/24/17 19:09 12/24/17 19:43 Urine Color YELLOW Urine Appearance CLEAR (CLEAR) Urine pH 8.0 (4.5-7.5) Urine Specific [place] 1.012 (1.000-1.030) Urine Protein NEG (NEG) Urine Glucose (UA) NEG (NEG) Urine Ketones NEG (NEG) Urine Occult Blood NEG (NEG) Urine Nitrite NEG (NEG) Urine Bilirubin NEG (NEG) Urine Urobilinogen NEG (NEG) Urine Leukocyte Esterase TRACE (NEG) Urine WBC (Auto) 1-5 /hpf (0-5) Urine RBC (Auto) 0-4 /hpf (0-4) Urine Hyaline Casts (Auto) 0 /lpf (0-5) Urine Epithelial Cells (Auto) 0-5 /lpf (0-5) Urine Bacteria (Auto) NEG (NEG) White Blood Count 7.16 K/uL (4.8-10.8) Red Blood Count 3.59 M/uL (4.2-5.4) Hemoglobin 11.9 g/dL (12.0-16.0) Hematocrit 36.5 % (37-47) Mean Corpuscular Volume 101.7 fL (80-100) Mean Corpuscular Hemoglobin 33.1 pg (25-34) Mean Corpuscular Hemoglobin Concent 32.6 g/dl (32-36) Platelet Count 281 K/uL (130-400) Mean Platelet Volume 9.5 fL (7.4-10.4) Neutrophils (%) (Auto) 65.7 % Lymphocytes (%) (Auto) 22.1 % Monocytes (%) (Auto) 8.7 % Eosinophils (%) (Auto) 2.8 % Basophils (%) (Auto) 0.6 % Neutrophils # (Auto) 4.71 K/uL (1.4-6.5) Lymphocytes # (Auto) 1.58 K/uL (1.2-3.4) Monocytes # (Auto) 0.62 K/uL (0.11-0.59) Eosinophils # (Auto) 0.20 K/uL (0-0.5) Basophils # (Auto) 0.04 K/uL (0-0.2) RDW Standard Deviation 50.6 fL (36.4-46.3) RDW Coefficient of Variation 13.5 % (11.5-14.5) Immature Granulocyte % (Auto) 0.1 % Immature Granulocyte # (Auto) 0.01 K/uL (0.00-0.02) Anion Gap 4.0 mmol/L (3-11) Est Creatinine Clear Calc Drug Dose 33.3 ml/min Estimated GFR () 58.1 Estimated GFR (Non- 50.1 BUN/Creatinine Ratio 17.0 (10-20) Calcium Level 8.3 mg/dl (8.5-10.1) Total Bilirubin 0.3 mg/dl (0.2-1) Direct Bilirubin < 0.1 mg/dl (0-0.2) Aspartate Amino Transf (AST/SGOT) 16 U/L (15-37) Alanine Aminotransferase (ALT/SGPT) 16 U/L (12-78) Alkaline Phosphatase 118 U/L (45-117) Total Protein 7.4 gm/dl (6.4-8.2) Albumin 2.8 gm/dl (3.4-5.0) Laboratory results per my review. Medications Administered Medications (Trade) Dose Ordered Sig/Aleksander Route Start Time Stop Time Status Last Admin Dose Admin Morphine Sulfate (MoRPHine SULFATE INJ) 2 mg NOW STAT IV 12/24/17 18:09 12/24/17 18:12 DC 12/24/17 18:35 2 MG Cyclobenzaprine HCl (Flexeril Tab) 5 mg NOW STAT PO 12/24/17 18:09 12/24/17 18:12 DC 12/24/17 18:36 5 MG Ketorolac Tromethamine (Toradol Inj) 15 mg NOW STAT IV 12/24/17 18:09 12/24/17 18:12 DC 12/24/17 18:35 15 MG Sodium Chloride 1,000 ml @ 125 mls/hr Q8H STAT IV 12/24/17 18:09 12/25/17 02:08 12/24/17 18:36 125 MLS/HR Telmisartan (Micardis Tab) 40 mg NOW STAT PO 12/24/17 18:51 12/24/17 18:52 DC 12/24/17 19:05 40 MG Lorazepam (Ativan Inj) 0.5 mg NOW STAT IV 12/24/17 20:00 12/24/17 20:01 DC 12/24/17 20:08 0.5 MG ED Course 1803: Past medical records reviewed. The patient was evaluated in room C6. A complete history and physical examination was performed. 1809: Ordered NSS 1000 ml @ 125 mls/hr IV, Toradol Inj 15 mg IV, Flexeril Tab 5 mg PO, Morphine Sulfate 2 mg IV. 1851: Ordered Telmisartan 40 mg PO. 1999: Ordered Ativan Inj 0.5 mg IV. 2258: I reevaluated the patient and updated her on her results. 2331: I reviewed the patient's case with Dr. Stark - [facility] Hospitalist. He will evaluate the patient for further management. Medical Decision Differential diagnosis: Etiologies such as musculoskeletal, disc herniation, fracture, aortic disease, metastatic disease, cord compression, discitis, infection, renal colic, gastrointestinal, acute exacerbation of chronic back pain, sciatica, cauda equina, as well as others were entertained. This patient was evaluated and appeared to be in some discomfort. IV access was obtained and laboratory work was drawn. The patient was medicated with IV morphine, IV Toradol, p.o. Flexeril. The patient stated she did not take her blood pressure medication this morning. She was given her telmisartan 40 mg p.o. MRI of the lumbar spine was ordered. Nursing was concerned about the patient's claustrophobia. She was given 0.5 mg of IV Ativan. MRI of the lumbar spine was obtained and is read as above. There is an L1 compression fracture of approximately 40%. Patient failed an ambulatory trial with 2 nursing assist. It is in the patient's best interest for observation stay, PT OT evaluation and pain control. She may require rehabilitation stay. Patient and family are aware of the plan. Dr. Stark has been consulted. Medication Reconcilliation Current Medication List: was personally reviewed by me Blood Pressure Screening Patient's blood pressure: Elevated blood pressure Will be further monitored by the hospitalist. Consults Time Called: 230 Consulting Physician: Dr. Lincoln [facility] Hospitalist Returned Call: [phone] I reviewed the patient's case with Dr. Linclon SEGUN[facility] Hospitalist. He will evaluate the patient for further management. Impression Primary Impression: Intractable back pain Additional Impression: Compression fracture of L1 lumbar vertebra Scribe Attestation The scribe's documentation has been prepared under my direction and personally reviewed by me in its entirety. I confirm that the note above accurately reflects all work, treatment, procedures, and medical decision making performed by me. Departure Information Dispostion Being Evaluated By Hospitalist Referrals No Doctor, Assigned (PCP) Patient Instructions My [facility] Problem Qualifiers
[2017-12-24] MEDS ORDERED: LORAZEPAM 2 MG/ML 1 ML VIAL IV STA (20:00)
[2017-12-24 20:28] LABS: BASO % 0.6 %; BASO ABS # 0.04 K/uL (0-0.2); EOS % 2.8 %; HEMATOCRIT 36.5 % (37-47); HEMOGLOBIN 11.9 g/dL (12.0-16.0); IG# 0.01 K/uL (0.00-0.02); LYMPH % 22.1 %; LYMPH ABS # 1.58 K/uL (1.2-3.4); MEAN CELL VOLUME 101.7 fL (80-100); MEAN CORPUSCULAR HEMOGLOBIN 33.1 pg (25-34); MEAN CORPUSCULAR HGB CONC 32.6 g/dl (32-36); MEAN PLATELET VOLUME 9.5 fL (7.4-10.4); MONO % 8.7 %; MONO ABS # 0.62 K/uL (0.11-0.59); NEUT % 65.7 %; NEUT ABS # 4.71 K/uL (1.4-6.5); PLATELET COUNT 281 K/uL (130-400); RED CELL DISTRIBUTION WIDTH CV 13.5 % (11.5-14.5); RED CELL DISTRIBUTION WIDTH SD 50.6 fL (36.4-46.3); WHITE BLOOD COUNT 7.16 K/uL (4.8-10.8)
[2017-12-24 20:51] LABS: ALBUMIN 2.8 gm/dl (3.4-5.0); ALT/SGPT 16 U/L (12-78); BLOOD UREA NITROGEN 17 mg/dl (7-18); CALCIUM 8.3 mg/dl (8.5-10.1); CARBON DIOXIDE 28 mmol/L (21-32); CREATININE 1.02 mg/dl (0.60-1.20); GLUCOSE 93 mg/dl (70-99); POTASSIUM 4.4 mmol/L (3.5-5.1); SODIUM 137 mmol/L (136-145)
[2017-12-24 20:54] LABS: ALKALINE PHOSPHATASE 118 U/L (45-117); AST/SGOT 16 U/L (15-37); TOTAL PROTEIN 7.4 gm/dl (6.4-8.2)
--- NOTE | 2017-12-24 22:33 | DIAGNOSTIC IMAGING REPORT ---
LUMBAR SPINE W/O CONTRAST CLINICAL HISTORY: 87 years-old Female with L1 compression fx, colon ca history. L1 compression deformity. Follow-up study. COMPARISON: CT abdomen and pelvis 11/16/2017 TECHNIQUE: Multiplanar, multi sequence MRI of the lumbar spine was performed without intravenous contrast. FINDINGS: The large field view top steep tender localizer images demonstrate no gross abnormality. The exam is motion degraded. 40% anterior endplate compression deformity of the L1 vertebral body is present without significant retropulsion identified. Moderate associated bone marrow edema with mild cortication of the fracture lines ingesting subacute etiology. Mild paravertebral edema is also noted. No definite extension into the posterior elements. No additional acute fracture or subluxation. Mild bone marrow edema of L2, likely reactive. Conus medullaris terminates at the L1-L2 level. No aortic aneurysm or adenopathy. T12-L1: No central canal or neural foraminal stenosis. Mild posterior spondylitic spurring and facet arthrosis. L1-L2: No central canal or neural foraminal stenosis. Mild posterior spondylitic spurring and facet arthropathy with mild bilateral foraminal narrowing. L2-L3: Mild posterior spondylitic spurring, facet arthrosis and ligamentum flavum thickening without significant central canal or foraminal narrowing. L3-L4: Mild posterior spondylitic spurring, moderate facet arthrosis and ligamentum flavum thickening with small posterior disc bulge. There is flattening of the ventral thecal sac with mild bilateral foraminal narrowing. No significant central canal stenosis. L4-L5: Small posterior disc bulge flattens the ventral thecal sac. There is mild posterior spondylitic spurring with moderate facet arthrosis and ligamentum flavum thickening. No significant central canal narrowing. There is mild inferior bilateral foraminal narrowing. L5-S1: Mild posterior intervertebral disc space narrowing with posterior spondylitic spurring and small circumferential annular disc bulge with moderate facet arthrosis and ligamentum flavum thickening. Mild bilateral foraminal narrowing without significant central canal stenosis. IMPRESSION: 1. 40% anterior endplate compression deformity of the L1 vertebral body appears subacute in nature. No significant retropulsion, high-grade central canal or foraminal narrowing. 2. Mild bone marrow edema of the L2 vertebral body is likely reactive. 3. Multilevel discogenic degenerative changes, facet arthrosis and ligament of flavum thickening as above without high-grade central canal or foraminal narrowing. The above report was generated using voice recognition software. It may contain grammatical, syntax or spelling errors. Electronically signed by: Ruel Lovett M.D. 12/24/2017 10:32 PM Dictated Date/Time: 12/24/2017 10:25 PM
[2017-12-25] VITALS (11 sets, daily range): BP systolic 92–209; BP diastolic 44–73; PULSE 61–80; TEMP 36.6–37.3; O2SAT 92–100; BMI 22.8
[2017-12-25] MEDS ORDERED: ONDANSETRON INJ 2 MG/ML 2 ML VIAL IV PRN
[2017-12-25] MEDS ORDERED: PYRIDOXINE HCL 50 MG TAB PO PRN
[2017-12-25] MEDS ORDERED: MAGNESIUM HYDROXIDE SUSP 30 ML UDC PO PRN
[2017-12-25] MEDS ORDERED: ALUMINUM/MAGNESIUM/SIMETH (MAALOX MAX) 30 ML UDC PO PRN
[2017-12-25] MEDS ORDERED: PHENAZOPYRIDINE HCL 200 MG TAB PO PRN
[2017-12-25] MEDS ORDERED: POLYETHYLENE (MIRALAX) 17 GM PACK PO PRN
--- NOTE | 2017-12-25 00:30 | History and Physical ---
History & Physical Date & Time of Service: Dec 25, 2017 at 00:01 Chief Complaint: Back Pain Primary Care Physician: Filiberto Colon M.D. History of Present Illness Source: patient 87 y/o F Hx colon CA - remission, HTN, HPL, interstitial cystitis, recent L1 compression fracture. Presenting with progressive lower back pain leading to immobility. The pt states that she had sustained the fracture approximately 3 weeks prior and had been recovering fairly well until today. She presented primarily due to the pain, however, the pain becomes severe when she attempts to ambulate, and she could not therefore ambulate independently. Attempts to ambulate the pt in the ER following administration of analgesics failed miserably. 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 3) Sepsis following colostomy due to anastomotic breakdown / wound infection 4) HTN 5) Interstitial cystitis 6) HPL Surgical: Transverse colectomy and colostomy placement 11/2016 Family History FHx: cancer Hypertension Social History Smoking Status: Never Smoker Drug Use: none Marital Status: Housing status: lives with family Occupational Status: retired Immunizations History of Influenza Vaccine: Yes Influenza Vaccine Date: Jul 30, 2012 History of Tetanus Vaccine?: Yes Tetanus Immunization Date: February 07, 2010 History of Pneumococcal: Yes Pneumococcal Date: Aug 23, 2010 History of Hepatitis B Vaccine: No Allergies Coded Allergies: Clindamycin (Unverified Allergy, Severe, CHEST PAIN/UPSET STOMACH, 12/24/17 ) Diltiazem (Verified Allergy, Severe, TIGHTENING OF THROAT, 12/24/17) Doxycycline (Unverified Allergy, Intermediate, LIGHT HEADED/NAUSEA, ) Hydralazine (Verified Allergy, Intermediate, RASH, 12/24/17) Azithromycin (Verified Allergy, Mild, PT UNSURE, 12/24/17) Losartan (Verified Allergy, Unknown, JITTERY,SJAKEY, 12/24/17) Nifedipine (Verified Allergy, Unknown, EXACERBATION INTERSTITIAL CYCSTITIS , 12/24/17) Nitrofurantoin (Verified Allergy, Unknown, RASH, 12/24/17) Quinine (Verified Allergy, Unknown, PT UNSURE, 12/24/17) Spironolactone (Verified Allergy, Unknown, RECTAL PRESSURE, PAIN, 12/24/17) Sulfa Antibiotics (Verified Allergy, Unknown, PATIENT UNSURE, 12/24/17) Terazosin (Verified Allergy, Unknown, LIGHTHEADEDNESS AND NAUSEA, 12/24/17) Quinolones (Verified Adverse Reaction, Intermediate, CIPRO- NAUSEA, NERVOUS, CHILLS, 12/24/17) Hydrocodone (Verified Adverse Reaction, Mild, GI UPSET, 12/25/17) Meperidine (Verified Adverse Reaction, Mild, GI UPSET, 12/25/17) Metronidazole (Verified Adverse Reaction, Mild, STOMACH PAIN, 12/24/17) Prochlorperazine (Verified Adverse Reaction, Mild, "BODY SHAKES", 12/25/17) Simvastatin (Verified Adverse Reaction, Mild, STOMACH PAIN, 12/24/17) Beta Adrenergic Blockers (Verified Adverse Reaction, Unknown, "Secondary AVB", 12/24/17) Ciprofloxacin (Verified Adverse Reaction, Unknown, GI SYMPTOMS, 12/25/17) Hydrochlorothiazide (Verified Adverse Reaction, Unknown, DYSURIA, 12/25/17) Lisinopril (Verified Adverse Reaction, Unknown, "INTOLERANCE" PER DR COLON, 12/24/17) Methenamine (Verified Adverse Reaction, Unknown, STOMACH PAIN, 12/24/17) Phenothiazines (Verified Adverse Reaction, Unknown, SHAKEY, 12/24/17) Valdecoxib (Verified Adverse Reaction, Unknown, GI SYMPTOMS, 12/24/17) Home Medications Scheduled Atorvastatin (Lipitor), 10 MG PO HS Cefuroxime Axetil (Cefuroxime Axetil), 1 TAB PO BID Clobetasol Propionate (Clobetasol Propionate Cream 0.05%), 1 APPLN EXT BID Ferrous Sulfate (Kp Ferrous Sulfate), 1 TAB PO BIDM Gabapentin (Neurontin), 300 MG PO TID Ibuprofen Tab (Advil), 200 MG PO UD Loratadine (Claritin), 10 MG PO QAM Methenamine Hippurate (Methenamine Hippurate), 1 TAB PO HS Omeprazole (Prilosec), 20 MG PO QAM Pentosan Polysulfate Sodium (Elmiron), 100 MG PO BID Telmisartan (Micardis), 40 MG PO QAM Scheduled PRN Fluticasone Furoate-Vilanterol (Breo Ellipta), 1 PUFF INH DAILY PRN for Shortness of Breath Ondansetron Hcl (Zofran), 8 MG PO Q8H PRN for Nausea Phenazopyridine HCl (Pyridium), 200 MG PO TID PRN for PRN Pyridoxine (Vitamin B6), 100 MG PO DAILY PRN for LEG CRAMPS Tramadol (Ultram), 50 MG PO Q6 PRN for Pain Review of Systems Constitutional: No fever, No chills, No sweats Eyes: No worsening of vision ENT: No hearing loss, No nasal symptoms Respiratory: No cough, No sputum, No wheezing Cardiovascular: No chest pain, No orthopnea, No PND Abdomen: No pain, No nausea, No vomiting Musculoskeletal: + problem reported (BAck pain as above ) Genitourinary - Female: No dysuria, No urinary frequency, No urinary urgency Neurologic: + balance problems, No memory loss, No paralysis, No weakness Psychiatric: No depression symptoms Endocrine: No fatigue Hematologic / Lymphatic: No abnormal bleeding/bruising Integumentary: No rash Physical Exam Vital Signs Date Time Temp Pulse Resp B/P (MAP) Pulse Ox O2 Delivery O2 Flow Rate FiO2 12/24/17 23:14 93 18 175/56 92 Room Air 12/24/17 21:51 79 18 159/67 92 Room Air 12/24/17 20:15 88 18 197/69 95 Room Air 12/24/17 18:43 92 19 178/70 94 Room Air 12/24/17 17:17 83 12/24/17 16:30 37.1 90 24 164/64 92 Room Air General Appearance: WD/WN, no apparent distress Head: normocephalic Eyes: normal inspection ENT: normal ENT inspection, pharynx normal Neck: supple, no JVD Respiratory/Chest: chest non-tender, lungs clear, normal breath sounds Cardiovascular: regular rate, rhythm, no edema, no gallop Abdomen/GI: normal bowel sounds, non tender, + pertinent finding (colostomy bag functional ) Back: normal inspection, no CVA tenderness, + pertinent finding (No significant point tenderness) 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, no motor/sensory deficits, alert, oriented x 3 Skin: normal color Diagnostics Laboratory Results Results Past 24 Hours Test 12/24/17 19:09 12/24/17 19:43 Range/Units Urine Color YELLOW Urine Appearance CLEAR CLEAR Urine pH 8.0 4.5-7.5 Urine Specific [place] 1.012 1.000-1.030 Urine Protein NEG NEG Urine Glucose (UA) NEG NEG Urine Ketones NEG NEG Urine Occult Blood NEG NEG Urine Nitrite NEG NEG Urine Bilirubin NEG NEG Urine Urobilinogen NEG NEG Urine Leukocyte Esterase TRACE NEG Urine WBC (Auto) 1-5 0-5 /hpf Urine RBC (Auto) 0-4 0-4 /hpf Urine Hyaline Casts (Auto) 0 0-5 /lpf Urine Epithelial Cells (Auto) 0-5 0-5 /lpf Urine Bacteria (Auto) NEG NEG White Blood Count 7.16 4.8-10.8 K/uL Red Blood Count 3.59 4.2-5.4 M/uL Hemoglobin 11.9 12.0-16.0 g/dL Hematocrit 36.5 37-47 % Mean Corpuscular Volume 101.7 80-100 fL Mean Corpuscular Hemoglobin 33.1 25-34 pg Mean Corpuscular Hemoglobin Concent 32.6 32-36 g/dl Platelet Count 281 130-400 K/uL Mean Platelet Volume 9.5 7.4-10.4 fL Neutrophils (%) (Auto) 65.7 % Lymphocytes (%) (Auto) 22.1 % Monocytes (%) (Auto) 8.7 % Eosinophils (%) (Auto) 2.8 % Basophils (%) (Auto) 0.6 % Neutrophils # (Auto) 4.71 1.4-6.5 K/uL Lymphocytes # (Auto) 1.58 1.2-3.4 K/uL Monocytes # (Auto) 0.62 0.11-0.59 K/uL Eosinophils # (Auto) 0.20 0-0.5 K/uL Basophils # (Auto) 0.04 0-0.2 K/uL RDW Standard Deviation 50.6 36.4-46.3 fL RDW Coefficient of Variation 13.5 11.5-14.5 % Immature Granulocyte % (Auto) 0.1 % Immature Granulocyte # (Auto) 0.01 0.00-0.02 K/uL Sodium Level 137 136-145 mmol/L Potassium Level 4.4 3.5-5.1 mmol/L Chloride Level 105 98-107 mmol/L Carbon Dioxide Level 28 21-32 mmol/L Anion Gap 4.0 3-11 mmol/L Blood Urea Nitrogen 17 7-18 mg/dl Creatinine 1.02 0.60-1.20 mg/dl Est Creatinine Clear Calc Drug Dose 33.3 ml/min Estimated GFR () 58.1 Estimated GFR (Non- 50.1 BUN/Creatinine Ratio 17.0 10-20 Random Glucose 93 70-99 mg/dl Calcium Level 8.3 8.5-10.1 mg/dl Total Bilirubin 0.3 0.2-1 mg/dl Direct Bilirubin < 0.1 0-0.2 mg/dl Aspartate Amino Transf (AST/SGOT) 16 15-37 U/L Alanine Aminotransferase (ALT/SGPT) 16 12-78 U/L Alkaline Phosphatase 118 45-117 U/L Total Protein 7.4 6.4-8.2 gm/dl Albumin 2.8 3.4-5.0 gm/dl Diagnostic Radiology Lumbar MRI 1. 40% anterior endplate compression deformity of the L1 vertebral body appears subacute in nature. No significant retropulsion, high-grade central canal or foraminal narrowing. 2. Mild bone marrow edema of the L2 vertebral body is likely reactive. 3. Multilevel discogenic degenerative changes, facet arthrosis and ligament of flavum thickening as above without high-grade central canal or foraminal narrowing. Impression Assessment and Plan 87 y/o F Hx colon CA - remission, HTN, HPL, interstitial cystitis, recent L1 compression fracture. Presenting with progressive lower back pain leading to immobility. The pt states that she had sustained the fracture approximately 3 weeks prior and had been recovering fairly well until today. She presented primarily due to the pain, however, the pain becomes severe when she attempts to ambulate, and she could not therefore, ambulate independently. 1) Back pain - a lumbar MRI confirmed a subacute L1 compression fracture. Attempts to ambulate the pt in the ER following administration of analgesics failed miserably. The pt is assigned to the medical floor for AM PT/OT and pain control. It is likely that she will require transfer to an acute rehab facility as she lives with an elderly who may not be able to accommodate her limitations. 2) HTN - cont Micardis 3) Interstitial cystitis - cont PRN Pyridoxine, Methenamine 4) HPL - cont Lipitor Full code - Lovenox prophylaxis Total time for this admit including review of labs, meds, imaging, records - discussion with pt, family and ER attending - 33 min Resuscitation Status VTE Prophylaxis Will order VTE Prophylaxis: Yes
[2017-12-25] MEDS ORDERED: CLONIDINE HCL 0.1 MG TAB PO ONE (02:15)
[2017-12-25] MEDS ORDERED: IV FLUIDS COMPLETED PRN (05:45)
[2017-12-25] MEDS ORDERED: NURSING VERBAL MED ORDER ONE (06:15)
[2017-12-25] MEDS ORDERED: SODIUM CHLORIDE 0.9% 1000ML 1,000 ML IV SCH (06:30)
[2017-12-25] MEDS: PENTOSAN POLYSULFATE SODIUM 100 MG CAP PO SCH ×2 (08:07→21:24)
[2017-12-25] MEDS: LORATADINE 10 MG TAB PO SCH (08:07)
[2017-12-25] MEDS: GABAPENTIN 300 MG CAP PO SCH ×3 (08:08→21:24)
[2017-12-25] MEDS: ENOXAPARIN 40 MG/0.4 ML SYR SQ SCH (08:08)
[2017-12-25] MEDS: PANTOprazole SOD 40 MG TAB PO SCH (08:08)
[2017-12-25] MEDS: FERROUS SULFATE 325 MG TAB PO SCH ×2 (08:08→17:27)
[2017-12-25] MEDS: TRAMADOL HCL 50 MG TAB PO PRN ×2 (08:09→15:32)
[2017-12-25] MEDS: MoRPHine SULFATE 4 MG/ML 1 ML CARP\\VIAL IV PRN ×3 (12:14→21:31)
[2017-12-25] MEDS: TELMISARTAN 40 MG TAB PO SCH (13:42)
--- NOTE | 2017-12-25 14:58 | Progress Note ---
Progress Note Date of Service Dec 25, 2017. Progress Note Pleasant 87 yo female who presents with severe back pain, was found to have L1 compression fracture.which is subacute. Patient still has severe pain today. Will place on lidocaine patch. Will continue morphine IV. Will also start calcitonin nasally 200 units alternating nostril daily. Calcitonin is for improving pain control. I explain to family and patient that pain will be need to be controlled before discharge. Expect a 3-5 day hospital stay.
[2017-12-25] MEDS ORDERED: LIDODERM (LIDOCAINE) PATCH 5% TD ONE (15:00)
[2017-12-25] MEDS: CALCITONIN SALMON NA 200 IU/AC 3.7 ML BTL SCH (21:23)
[2017-12-25] MEDS: ATORVASTATIN 10 MG TAB PO SCH (21:24)
[2017-12-25] MEDS: METHENAMINE HIPPURATE 1 GM TAB PO SCH (21:25)
[2017-12-26 04:19] VITALS: BP 126/65; PULSE 60; TEMP 36.8; O2SAT 96
[2017-12-26 06:24] VITALS: BMI 22.8
[2017-12-26 07:22] VITALS: BP 138/70; PULSE 84; TEMP 36.8; O2SAT 95
[2017-12-26] MEDS: MoRPHine SULFATE 4 MG/ML 1 ML CARP\\VIAL IV PRN (08:57)
[2017-12-26] MEDS: GABAPENTIN 300 MG CAP PO SCH ×3 (08:59→20:28)
[2017-12-26] MEDS: PANTOprazole SOD 40 MG TAB PO SCH (09:00)
[2017-12-26] MEDS: FERROUS SULFATE 325 MG TAB PO SCH ×2 (09:00→17:22)
[2017-12-26] MEDS ORDERED: DOCUSATE SODIUM 100 MG CAP PO ONE (09:00)
[2017-12-26] MEDS: PENTOSAN POLYSULFATE SODIUM 100 MG CAP PO SCH ×2 (09:00→20:30)
[2017-12-26] MEDS: TELMISARTAN 40 MG TAB PO SCH (09:00)
[2017-12-26] MEDS: LORATADINE 10 MG TAB PO SCH (09:01)
[2017-12-26] MEDS: LIDODERM (LIDOCAINE) PATCH 5% TD SCH ×2 (09:02→17:20)
[2017-12-26] MEDS: ENOXAPARIN 40 MG/0.4 ML SYR SQ SCH (09:02)
[2017-12-26 11:36] VITALS: BP 145/59; PULSE 72; TEMP 36.9; O2SAT 95
--- NOTE | 2017-12-26 12:09 | HISTORY & PHYSICAL EXAMINATION ---
DATE OF ADMISSION: 12/25/2017 CHIEF COMPLAINT: Low back pain. HISTORY OF PRESENT ILLNESS: Kadie is a delightful patient. I am seeing her on rounds earlier this morning on 12/26/2017. She has low back pain. It is in the area L4-L5 vertebrae, possibly L3 left hand side, almost over left iliac crest. She was admitted with chronic low back pain and L1 compression fracture, so this is a little bit of a slight mismatch in anatomy and pain which is seen from time to time. MEDICAL HISTORY: Positive for colon carcinoma, sepsis, past colonoscopy, hypertension, interstitial cystitis. SURGICAL HISTORY: Partial colectomy and colostomy placement. FAMILY HISTORY: Cancer and hypertension. SOCIAL HISTORY: Nonsmoker, no drug use. , retired. ALLERGIES: GREATER THAN 15. MEDICATIONS: Reviewed and initialed. REVIEW OF SYSTEMS: Denies any fevers, sweats, chills. Alert, oriented. Denies coughing, asthma, shortness of breath. Denies chest pain, palpitations. No nausea, vomiting. She has low back pain as described above. PHYSICAL EXAMINATION: VITAL SIGNS: Blood pressure 164/64, pulse regular at 80 beats per minute, 18 respirations. SKIN: Intact. No breakdown. HEENT: Essentially normal. No apparent distress. NECK: Supple. CHEST: Normal lung sounds. Normal breath sounds. CARDIAC: Regular rate and rhythm at 80 beats per minute. No arrhythmias. ABDOMEN: Soft with the colostomy bag in place and functioning. Images demonstrate an anterior compression deformity of L1 vertebrae, appear to be subacute in nature. There is no retropulsion. There is no high grade narrowing. There were no surgical issues. IMPRESSION: Delightful young lady with a compression fracture of spine, hypertension, status post colostomy and colectomy. I also am a little concerned in that her anatomy does not quite match; more to the point she has an L1 compression fracture, apparently subacute. Her pain is quite inferior on the left hand side to this. I studied the x-rays thoroughly. I think it is consistent with a compression fracture versus a metastatic lesion. PLAN: At this point in time, simply pain control, get her up and ambulatory and get her home. She will need a prescription for a walker with wheels, a back brace because of her colostomy generally fails. I will see her back in the office in about 1-2 weeks. She is to call for an appointment at [phone].
[2017-12-26] MEDS: TRAMADOL HCL 50 MG TAB PO PRN ×2 (12:58→18:51)
[2017-12-26 14:23] VITALS: BP 175/76; PULSE 71; TEMP 36.9; O2SAT 91
--- NOTE | 2017-12-26 14:29 | Progress Note ---
Subjective Date of Service: Dec 26, 2017. Subjective Pt evaluation today including: conversation w/ patient, physical exam, chart review, lab review, review of studies, review of inpatient medication list Lower back pain better controlled, however does have pain with movement, report has constipation, no other complaint Problem List Medical Problems: (1) Back pain Status: Acute (2) Compression fracture of L1 lumbar vertebra Status: Acute (3) Compression fracture of L1 lumbar vertebra Status: Acute (4) Intractable back pain Status: Acute (5) Rash Status: Acute (6) Urinary tract infection Status: Acute (7) Vaginal burning Status: Acute Review of Systems Constitutional: + weakness, + fatigue, No fever, No chills, No sweats, No weight loss, No problem reported Eyes: No worsening of vision, No eye pain, No redness, No discharge, No diplopia ENT: No hearing loss, No unusual epistaxis, No nasal symptoms, No sore throat, No tinnitus, No dental problems, No trouble swallowing Respiratory: No cough, No sputum, No wheezing, No shortness of breath, No dyspnea on exertion, No dyspnea at rest, No hemoptysis Cardiac: No chest pain, No orthopnea, No PND, No edema, No claudication, No palpitations Abdomen: No pain, No nausea, No vomiting, No diarrhea, No constipation Musculoskeletal: + joint pain, No muscle pain, No swelling, No calf pain Female : No dysuria, No urinary frequency, No hematuria, No incontinence, No abnormal vaginal bleeding, No vaginal discharge Neurologic: No memory loss, No paralysis, No weakness, No numbness/tingling, No vertigo, No balance problems Psychiatric: No depression symptoms, No anhedonism, No anxiety, No insomnia, No substance abuse Heme: No abnormal bleeding/bruising, No clotting problems, No swollen lymph nodes, No night sweats Endo: No fatigue, No excessive thirst, No excessive urination Skin: No rash, No itch, No new/changing skin lesions, No color change, No bleeding Objective Vital Signs Date Time Temp Pulse Resp B/P (MAP) Pulse Ox O2 Delivery O2 Flow Rate FiO2 12/26/17 11:36 36.9 72 18 145/59 (87) 95 Room Air 12/26/17 08:10 Room Air 12/26/17 07:22 36.8 84 16 138/70 (92) 95 Room Air 12/26/17 04:19 36.8 60 20 126/65 (85) 96 Room Air 12/25/17 23:59 Room Air 12/25/17 23:05 37.3 80 18 144/64 (90) 93 Room Air 12/25/17 19:14 37.1 68 16 129/59 (82) 95 Room Air 12/25/17 16:00 Room Air 12/25/17 15:50 36.8 77 20 151/57 (88) 92 Room Air 12/25/17 15:01 36.7 79 20 161/52 (88) 99 Room Air Physical Exam General Appearance: WD/WN, no apparent distress, + thin Eyes: normal inspection, PERRL, EOMI, sclerae normal ENT: normal ENT inspection, hearing grossly normal, pharynx normal Neck: supple, no adenopathy, thyroid normal, no JVD, no carotid bruits, trachea midline Respiratory/Chest: chest non-tender, normal breath sounds, no respiratory distress, no accessory muscle use, + decreased breath sounds Cardiovascular: regular rate, rhythm, no edema, no gallop, no JVD, no murmur Abdomen: normal bowel sounds, non tender, soft, no organomegaly, no pulsatile mass Extremities: normal range of motion, non-tender, normal inspection, no pedal edema, no calf tenderness, normal capillary refill, pelvis stable 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 Low back pain secondary to a subacute L1 compression fracture. Which is confirmed by MRI studies Improved and stable L spine MRI studies by report below: 1. 40% anterior endplate compression deformity of the L1 vertebral body appears subacute in nature. No significant retropulsion, high-grade central canal or foraminal narrowing. 2. Mild bone marrow edema of the L2 vertebral body is likely reactive. 3. Multilevel discogenic degenerative changes, facet arthrosis and ligament of flavum thickening as above without high-grade central canal or foraminal narrowing. Spine surgeon saw patient, was thinking about back brace, however patient has colostomy bag which is not doable for back brace Possible osteoporosis, L1 subacute compression fracture possible from osteoporosis Vitamin D deficiency Has started calcitonin nasal spray, start the calcium and vitamin D supplementation PT OT evaluation was done okay for patient to go home HTN, Interstitial cystitis, HPL: Stable continue current medication Full code - Lovenox prophylaxis Will optimize pain medicine, switch IV pain medicine tomorrow, planning to discharge home tomorrow, were discussed with patient and family Continued [facility] stay due to: home environment unsafe for pt Discharge planning: home
[2017-12-26 18:34] VITALS: BP 161/68; PULSE 92; TEMP 37; O2SAT 94
[2017-12-26] MEDS: CALCITONIN SALMON NA 200 IU/AC 3.7 ML BTL SCH (20:28)
[2017-12-26] MEDS: ATORVASTATIN 10 MG TAB PO SCH (20:29)
[2017-12-26] MEDS: CALCIUM 600MG + VIT D 400 IU TAB PO SCH (20:29)
[2017-12-26] MEDS: DOCUSATE SODIUM 100 MG CAP PO SCH (20:29)
[2017-12-26] MEDS: METHENAMINE HIPPURATE 1 GM TAB PO SCH (20:30)
[2017-12-26 23:17] VITALS: BP 128/64; PULSE 87; TEMP 36.6; O2SAT 97
[2017-12-27 04:06] VITALS: BP 160/60; PULSE 73; TEMP 36.5; O2SAT 92
[2017-12-27 06:15] VITALS: Ht 160 cm; Wt 57.8 kg
[2017-12-27 07:03] VITALS: BP 121/68; PULSE 64; TEMP 36.8; O2SAT 95
[2017-12-27] MEDS: CALCIUM 600MG + VIT D 400 IU TAB PO SCH (07:44)
[2017-12-27] MEDS: ENOXAPARIN 40 MG/0.4 ML SYR SQ SCH (07:44)
[2017-12-27] MEDS: PENTOSAN POLYSULFATE SODIUM 100 MG CAP PO SCH (07:44)
[2017-12-27] MEDS: PANTOprazole SOD 40 MG TAB PO SCH (07:44)
[2017-12-27] MEDS: LORATADINE 10 MG TAB PO SCH (07:45)
[2017-12-27] MEDS: FERROUS SULFATE 325 MG TAB PO SCH (07:45)
[2017-12-27] MEDS: GABAPENTIN 300 MG CAP PO SCH (07:45)
[2017-12-27] MEDS: TELMISARTAN 40 MG TAB PO SCH (07:46)
[2017-12-27] MEDS: DOCUSATE SODIUM 100 MG CAP PO SCH (07:46)
[2017-12-27] MEDS: TRAMADOL HCL 50 MG TAB PO PRN (07:52)
[2017-12-27] MEDS: LIDODERM (LIDOCAINE) PATCH 5% TD SCH (07:52)
[2017-12-27] MEDS ORDERED: CHOLECALCIFEROL 1000 INTER.UNIT TAB PO SCH (08:00)
[2017-12-27] MEDS ORDERED: LDDP5 TD (08:57)
[2017-12-27] MEDS ORDERED: CALCTAB7 PO (08:57)
[2017-12-27] MEDS ORDERED: VTMD1000 PO (08:57)
[2017-12-27] MEDS ORDERED: MCLIN (08:57)
--- NOTE | 2017-12-27 08:57 | Discharge Instructions ---
Discharge Instructions Date of Service Dec 27, 2017. Admission Reason for Admission: Gait Abnormality, Intractable Back Pain Discharge Discharge Diagnosis / Problem: subacute L1 compression fracture. Discharge Goals Goal(s): Decrease discomfort, Improve function, Increase independence, Improve disease control, Improve nutritional status, Learn about illness, Diagnostic testing, Therapeutic intervention, Prevent Disease Progression, Specific goals Activity Recommendations Activity Limitations: as noted below . Instructions / Follow-Up Instructions / Follow-Up you have Low back pain secondary to a subacute L1 compression fracture. you have possible osteoporosis, you have Vitamin D deficiency recommend activities as tolerated, fall precaution - you need to follow up with your primary care physician in 1 week, - take medication as instructed, never overdose or any misuse, or take with alcohol, because misuse of medicine may cause organ damage or , call your primary care physician if have questions of medicaitons. - call your primary care physician OR go to local emergency room if has any fever/chill, chest pain, shortness of breathing, nausea/vomiting/abdominal pain , facial droop/slurry speech/local weakness, or if has any questions. - diet as instructed - you should understand that it is important to follow up the above instruction , and "not following the above instruction" may cause delayed or missed care of your medical conditions which may cause permanent organ damage and even . Current Hospital Diet Patient's current hospital diet: Regular Diet Discharge Diet Recommended Diet: AHA Diet (Heart Healthy) Pending Studies Studies pending at discharge: no Laboratory Results Meds Administered (Past 24Hrs) Medications (Trade) Dose Ordered Sig/Aleksander Route Start Time Stop Time Status Last Admin Dose Admin Atorvastatin Calcium (Lipitor Tab) 10 mg HS PO 12/25/17 21:00 01/24/18 20:59 12/26/17 20:29 10 MG Methenamine Hippurate (Urex Tab) 1 gm HS PO 12/25/17 21:00 12/30/17 20:59 12/26/17 20:30 1 GM Calcitonin [place] (Fortical Nasal [place]) 1 spray PM NA 12/25/17 21:00 01/24/18 20:59 12/26/17 20:28 1 SPRAY Lidocaine (Lidoderm Patch 5%) 1 patch QAM TD 12/26/17 08:00 01/25/18 07:59 12/27/17 07:52 1 PATCH Lidocaine (Lidoderm Patch 5%) 1 patch NOW ONCE TD 12/25/17 15:00 12/25/17 15:01 DC 12/25/17 15:21 1 PATCH Miscellaneous (Remove Lidoderm Patch) 1 ea DAILY@21 N/A 12/25/17 21:00 01/24/18 20:59 12/26/17 20:30 1 EA Cholecalciferol (Vitamin D Tab) 1,000 inter.unit QAM PO 12/27/17 08:00 01/26/18 07:59 12/27/17 07:45 1,000 INTER.UNIT Calcium/Vitamin D (Caltrate Plus Tab) 1 tab BID PO 12/26/17 20:00 01/25/18 19:59 12/27/17 07:44 1 TAB Docusate Sodium (coLACE CAP) 100 mg BID PO 12/26/17 20:00 01/25/18 19:59 12/26/17 20:29 100 MG Medical Emergencies . Who to Call and When: Medical Emergencies: If at any time you feel your situation is an emergency, please call 911 immediately. . Non-Emergent Contact Non-Emergency issues call your: Primary Care Provider . . "Provider Documentation" section prepared by Khurram Rodriguez. .
[2017-12-27 10:20] VITALS: BP 121/68; PULSE 64; TEMP 36.8; O2SAT 95
--- NOTE | 2017-12-27 15:39 | Discharge Summary ---
Discharge Summary Date of Service Dec 27, 2017. Discharge Summary Admission Date: Dec 25, 2017 at 00:04 Discharge Date: Dec 27, 2017 Discharge Disposition: Home Principal Diagnosis: Low back pain secondary to a subacute L1 compression fracture. Problems/Secondary Diagnoses: Low back pain secondary to a subacute L1 compression fracture. possible osteoporosis, Vitamin D deficiency Immunizations: Have You Had Influenza Vaccine: Yes Influenza Vaccine Date: Jul 30, 2012 History of Tetanus Vaccine?: Yes Tetanus Immunization Date: February 07, 2010 History of Pneumococcal: Yes Pneumococcal Date: Aug 23, 2010 History of Hepatitis B Vaccine: No Procedures: No Consultations: Spine surgeon Medication Reconciliation New Medications: Calcitonin Hasty (Calcitonin-Hasty) 30 [place]/3.7 Ml Soln 1 SPRAY NA PM for 30 Days Calcium Carbonate-Vitamin D W/ (Caltrate 600 Plus) 1 Tab Tab 1 TAB PO BID for 30 Days, TAB Cholecalciferol (Vitamin D3) 1,000 Inter.unit Tab 1000 INTER.UNIT PO QAM for 30 Days, TAB Lidocaine (Lidocaine) 1 Patch Tdsy 1 PATCH TD QAM for 7 Days Continued Medications: Atorvastatin (Lipitor) 10 Mg Tab 10 MG PO HS, TAB Clobetasol Propionate (Clobetasol Propionate Cream 0.05%) 90 Appln/30 Gm Cr 1 APPLN EXT BID Ferrous Sulfate (Kp Ferrous Sulfate) 325 Mg Tab 1 TAB PO BIDM Fluticasone Furoate-Vilanterol (Breo Ellipta) 1 Inh Inh 1 PUFF INH DAILY PRN for Shortness of Breath Gabapentin (Neurontin) 300 Mg Cap 300 MG PO TID Ibuprofen Tab (Advil) 200 Mg Tab 200 MG PO UD Loratadine (Claritin) 10 Mg Tab 10 MG PO QAM, TAB Methenamine Hippurate (Methenamine Hippurate) 1 Gm Tab 1 TAB PO HS Omeprazole (Prilosec) 20 Mg Cap 20 MG PO QAM, CAP Ondansetron Hcl (Zofran) 8 Mg Tab 8 MG PO Q8H PRN for Nausea Pentosan Polysulfate Sodium (Elmiron) 100 Mg Cap 100 MG PO BID, CAP Phenazopyridine HCl (Pyridium) 200 Mg Tab 200 MG PO TID PRN for PRN Pyridoxine (Vitamin B6) 100 Mg Tab 100 MG PO DAILY PRN for LEG CRAMPS, TAB Telmisartan (Micardis) 40 Mg Tab 40 MG PO QAM Tramadol (Ultram) 50 Mg Tab 50 MG PO Q6 PRN for Pain Discontinued Medications: Cefuroxime Axetil (Cefuroxime Axetil) 500 Mg Tab 1 TAB PO BID for 7 Days, #14 TAB Discharge Exam Has been up and walk, doing okay, ready to go home, lower back pain is better controlled Review of Systems: Constitutional: No fever, No chills, No sweats, No weight loss, No weakness , No fatigue, No problem reported Eyes: No worsening of vision, No eye pain, No redness, No discharge, No diplopia, No problem reported Respiratory: No cough, No sputum, No wheezing, No shortness of breath, No dyspnea on exertion, No dyspnea at rest, No hemoptysis, No problem reported Cardiovascular: No chest pain, No orthopnea, No PND, No edema, No claudication, No palpitations, No problem reported Abdomen: No pain, No nausea, No vomiting, No diarrhea, No constipation, No GI bleeding, No problem reported Musculoskeletal: No joint pain, No muscle pain, No swelling, No calf pain, No problem reported Genitourinary - Female: No dysuria, No urinary frequency, No urinary urgency , No urinary incontinence, No urinary retention, No hematuria, No dysmenorrhea, No menorrhagia, No metrorrhagia, No rash, No vaginal bleeding, No vaginal discharge, No vaginal itching, No vulvodynia, No , No problem reported Neurologic: No memory loss, No paralysis, No weakness, No numbness/tingling , No vertigo, No balance problems, No problem reported Psychiatric: No depression symptoms, No anhedonism, No anxiety, No insomnia , No substance abuse, No problem reported Endocrine: No fatigue, No excessive thirst, No excessive urination, No problem reported Hematologic / Lymphatic: No abnormal bleeding/bruising, No clotting problems , No swollen lymph nodes, No night sweats, No problem reported Integumentary: No rash, No itch, No new/changing skin lesions, No color change, No bleeding, No problem reported Physical Exam: General Appearance: WD/WN Eyes: normal inspection, PERRL ENT: normal ENT inspection, hearing grossly normal Neck: supple, no adenopathy Respiratory/Chest: chest non-tender, + decreased breath sounds Cardiovascular: regular rate, rhythm, no edema, no gallop Abdomen / GI: normal bowel sounds, non tender, soft, no organomegaly, no pulsatile mass Extremities: normal inspection, no calf tenderness, normal capillary refill Neurologic/Psychiatric: cable reeler 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 Low back pain secondary to a subacute L1 compression fracture. Which is confirmed by MRI studies Improved and stable L spine MRI studies by report below: 1. 40% anterior endplate compression deformity of the L1 vertebral body appears subacute in nature. No significant retropulsion, high-grade central canal or foraminal narrowing. 2. Mild bone marrow edema of the L2 vertebral body is likely reactive. 3. Multilevel discogenic degenerative changes, facet arthrosis and ligament of flavum thickening as above without high-grade central canal or foraminal narrowing. Spine surgeon saw patient, was thinking about back brace, however patient has colostomy bag which is not doable for back brace Possible osteoporosis, L1 subacute compression fracture possible from osteoporosis Vitamin D deficiency Has started calcitonin nasal spray, has started the calcium and vitamin D supplementation PT OT evaluation was done okay for patient to go home HTN, Interstitial cystitis, HPL: Stable continue current medication switched IV pain medicine, has detailed discussion with patient and family about fall precaution Full code - Lovenox prophylaxis Instructions / Follow-Up you have Low back pain secondary to a subacute L1 compression fracture. you have possible osteoporosis, you have Vitamin D deficiency recommend activities as tolerated, fall precaution - you need to follow up with your primary care physician in 1 week, - take medication as instructed, never overdose or any misuse, or take with alcohol, because misuse of medicine may cause organ damage or , call your primary care physician if have questions of medicaitons. - call your primary care physician OR go to local emergency room if has any fever/chill, chest pain, shortness of breathing, nausea/vomiting/abdominal pain , facial droop/slurry speech/local weakness, or if has any questions. - diet as instructed - you should understand that it is important to follow up the above instruction , and "not following the above instruction" may cause delayed or missed care of your medical conditions which may cause permanent organ damage and even . Total Time Spent: Less than 30 minutes This includes examination of the patient, discharge planning, medication reconciliation, and communication with other providers. Discharge Instructions Please refer to the electronic Patient Visit Report (Discharge Instructions) for additional information. Additional Copies To Filiberto Pendleton M.D.
== END 2017-12-27 10:45 | disposition home or self-care (01) ==
LOC: EDBD 16:27 → C.EDC 16:28 → C.4E 12-25 00:04 → ENRESERV 12-25 00:16
PROVIDERS: ADMIT Internal Medicine; ATTEND Hospitalist
DX: S32.010A Wedge compression fracture of first lumbar vertebra, initial encounter for closed fracture (principal); M54.5 Low back pain; M47.816 Spondylosis without myelopathy or radiculopathy, lumbar region; E55.9 Vitamin D deficiency, unspecified; M51.36 Other intervertebral disc degeneration, lumbar region; I10 Essential (primary) hypertension; Z82.49 Family history of ischemic heart disease and other diseases of the circulatory system; Z88.1 Allergy status to other antibiotic agents; Z88.2 Allergy status to sulfonamides; Z88.5 Allergy status to narcotic agent; X58.XXXA Exposure to other specified factors, initial encounter; Z85.038 Personal history of other malignant neoplasm of large intestine

== ENCOUNTER → 2018-01-15 | Outpatient (CLI) | payer OTHER ==
[~2018-01-15] MED LIST changes: -AMLO-114 PO; +CALCTAB7 PO; +CLBCRM30 EXT; -DIPH-416 PO; +GABA-113 PO; -KETO0.0216 OP; +LDDP5 TD; +MCLIN; +TRAM-10 PO; +VTMD1000 PO
== END | disposition home or self-care (01) ==
LOC: C.LAB 11:36
PROVIDERS: ATTEND Nurse Practitioner Adult Health
DX: R39.9 Unspecified symptoms and signs involving the genitourinary system (principal)

== ENCOUNTER → 2018-01-20 | Outpatient (CLI) | payer OTHER ==
[~2018-01-20] MED LIST changes: +CALC-44 PO; +CALC200S7; +CEFU1TAB35 PO; +CHOL100027 PO; +FLX10 PO; +GABA-1219 PO; +ZNT150 PO
[2018-01-20 12:12] LABS: BASO % 1.1 %; BASO ABS # 0.06 K/uL (0-0.2); EOS % 4.4 %; EOS ABS # 0.24 K/uL (0-0.5); HEMATOCRIT 37.3 % (37-47); HEMOGLOBIN 11.9 g/dL (12.0-16.0); IG# 0.01 K/uL (0.00-0.02); LYMPH ABS # 1.38 K/uL (1.2-3.4); MEAN CELL VOLUME 100.3 fL (80-100); MEAN CORPUSCULAR HGB CONC 31.9 g/dl (32-36); MEAN PLATELET VOLUME 10.1 fL (7.4-10.4); MONO % 11.1 %; MONO ABS # 0.61 K/uL (0.11-0.59); NEUT % 58.2 %; NEUT ABS # 3.21 K/uL (1.4-6.5); PLATELET COUNT 358 K/uL (130-400); RED CELL DISTRIBUTION WIDTH CV 13.1 % (11.5-14.5); RED CELL DISTRIBUTION WIDTH SD 47.6 fL (36.4-46.3); WHITE BLOOD COUNT 5.51 K/uL (4.8-10.8)
[2018-01-20 12:32] LABS: HEMOGLOBIN A1C 5.6 % (4.5-5.6)
[2018-01-20 12:40] LABS: ALBUMIN 2.9 gm/dl (3.4-5.0); ALT/SGPT 16 U/L (12-78); AST/SGOT 11 U/L (15-37); BLOOD UREA NITROGEN 16 mg/dl (7-18); CALCIUM 8.6 mg/dl (8.5-10.1); CARBON DIOXIDE 29 mmol/L (21-32); CHOLESTEROL 146 mg/dl (0-200); GLUCOSE 92 mg/dl (70-99); POTASSIUM 4.1 mmol/L (3.5-5.1); SODIUM 135 mmol/L (136-145)
[2018-01-20 12:51] LABS: ALKALINE PHOSPHATASE 111 U/L (45-117); LDL CHOLESTEROL CALCULATED 81 mg/dl; TOTAL PROTEIN 7.5 gm/dl (6.4-8.2)
== END | disposition home or self-care (01) ==
LOC: C.LABBFT 09:29
PROVIDERS: ATTEND Internal Medicine
DX: R73.01 Impaired fasting glucose (principal); E55.9 Vitamin D deficiency, unspecified; E78.00 Pure hypercholesterolemia, unspecified

== ENCOUNTER 2018-01-21 19:44 | Observation (INO) | payer OTHER ==
[~2018-01-21] VITALS: Ht 160 cm; Wt 60.5 kg
[~2018-01-21 19:44] MED LIST changes: -CALC-44 PO; -CALC200S7; -CEFU1TAB35 PO; -CHOL100027 PO; -FLX10 PO; -GABA-1219 PO; -ZNT150 PO
--- NOTE | 2018-01-21 20:12 | EMERGENCY ROOM VISIT NOTE ---
History Report prepared by Jeremy: Julia Casas Under the Supervision of: Dr. Сергей Weeks M.D. First contact with patient: 19:52 Chief Complaint: BACK PAIN Stated Complaint: BACK PAIN History of Present Illness The patient is an 87 year old white female with a past medical history of sepsis , HTN, interstitial cystitis, colon cancer, back fracture who presents to the ED with a cc of constant lower back pain beginning this afternoon. She vomited when she tried to take her Tramadol. She took gabapentin to some relief. Positive burning with urination. Negative upper back pain. She has been on antibiotics for a UTI. She was admitted for back pain last month. She typically walks with a cane. She denies any recent falls. She is no longer on chemo for cancer after curative treatment. Source of History: patient, family Onset: this afternoon Position: back (lower) Timing: constant Modifying Factors (Relieving): other (gabapentin) Associated Symptoms: + urinary symptoms Review of Systems See HPI for pertinent positives and negatives. A total of ten systems were reviewed and were otherwise negative. Past Medical & Surgical Medical Problems: (1) Colonic mass (2) DVT prophylaxis (3) Gait abnormality (4) Gram negative sepsis (5) HTN (hypertension) (6) Interstitial cystitis (7) Intra-abdominal fluid collection (8) Leukocytosis Surgical Problems: (1) Hx of cervical polypectomy Family History FHx: cancer Hypertension Social History Smoking Status: Never Smoker Alcohol Use: none Drug Use: none Marital Status: Housing Status: lives with significant other Occupation Status: retired Current/Historical Medications Scheduled Atorvastatin (Lipitor), 10 MG PO HS Calcitonin ([place]) (Miacalcin), 1 SPRAY NA QPM Calcium Carbonate-Vitamin D W/ (Caltrate 600 Plus), 1 TAB PO DAILY Cefuroxime Axetil (Cefuroxime Axetil), 500 MG PO BID Cholecalciferol (Vitamin D 1000 Unit), 1,000 INTER.UNIT PO DAILY Clobetasol Propionate (Clobetasol Propionate Cream 0.05%), 1 APPLN EXT 2XWK Ferrous Sulfate (Kp Ferrous Sulfate), 1 TAB PO DAILY Gabapentin (Gabapentin), 300 MG PO TID Ibuprofen Tab (Advil), 200 MG PO UD Lidocaine (Lidocaine), 1 PATCH TD QAM Loratadine (Claritin), 10 MG PO QAM Methenamine Hippurate (Methenamine Hippurate), 1 TAB PO on hold Omeprazole (Prilosec), 20 MG PO QAM Pentosan Polysulfate Sodium (Elmiron), 100 MG PO BID Telmisartan (Micardis), 40 MG PO QAM Scheduled PRN Calcium Glycerophosphate (Prelief), 1 TAB PO DAILY PRN for acidy food Ondansetron Hcl (Zofran), 8 MG PO Q8H PRN for Nausea Phenazopyridine HCl (Pyridium), 200 MG PO TID PRN for PRN Pyridoxine (Vitamin B6), 100 MG PO DAILY PRN for LEG CRAMPS Tramadol (Ultram), 50 MG PO Q6 PRN for Pain Allergies Coded Allergies: Diltiazem (Verified Allergy, Severe, TIGHTENING OF THROAT, 12/24/17) Hydralazine (Verified Allergy, Intermediate, RASH, 12/24/17) Azithromycin (Verified Allergy, Mild, PT UNSURE, 12/24/17) Nifedipine (Verified Allergy, Unknown, EXACERBATION INTERSTITIAL CYCSTITIS , 12/24/17) Nitrofurantoin (Verified Allergy, Unknown, RASH, 12/24/17) Quinine (Verified Allergy, Unknown, PT UNSURE, 12/24/17) Sulfa Antibiotics (Verified Allergy, Unknown, PATIENT UNSURE, 12/24/17) Clindamycin (Unverified Adverse Reaction, Severe, CHEST PAIN/UPSET STOMACH , 12/25/17) Doxycycline (Unverified Adverse Reaction, Intermediate, LIGHT HEADED/ NAUSEA, 12/25/17) Quinolones (Verified Adverse Reaction, Intermediate, CIPRO- NAUSEA, NERVOUS, CHILLS, 12/24/17) Hydrocodone (Verified Adverse Reaction, Mild, GI UPSET, 12/25/17) Meperidine (Verified Adverse Reaction, Mild, GI UPSET, 12/25/17) Metronidazole (Verified Adverse Reaction, Mild, STOMACH PAIN, 12/24/17) Prochlorperazine (Verified Adverse Reaction, Mild, "BODY SHAKES", 12/25/17) Simvastatin (Verified Adverse Reaction, Mild, STOMACH PAIN, 12/24/17) Beta Adrenergic Blockers (Verified Adverse Reaction, Unknown, "Secondary AVB", 12/24/17) Ciprofloxacin (Verified Adverse Reaction, Unknown, GI SYMPTOMS, 12/25/17) Hydrochlorothiazide (Verified Adverse Reaction, Unknown, DYSURIA, 12/25/17) Lisinopril (Verified Adverse Reaction, Unknown, "INTOLERANCE" PER DR PENDLETON, 12/24/17) Losartan (Verified Adverse Reaction, Unknown, JITTERY,SJAKEY, 12/25/17) Methenamine (Verified Adverse Reaction, Unknown, STOMACH PAIN, 12/24/17) Phenothiazines (Verified Adverse Reaction, Unknown, SHAKEY, 12/24/17) Spironolactone (Verified Adverse Reaction, Unknown, RECTAL PRESSURE, PAIN , 12/25/17) Terazosin (Verified Adverse Reaction, Unknown, LIGHTHEADEDNESS AND NAUSEA , 12/25/17) Valdecoxib (Verified Adverse Reaction, Unknown, GI SYMPTOMS, 12/24/17) Physical Exam Vital Signs Date Time Temp Pulse Resp B/P (MAP) Pulse Ox O2 Delivery O2 Flow Rate FiO2 01/21/18 20:33 89 01/21/18 19:46 36.8 103 18 211/85 98 Room Air Physical Exam GENERAL: Awake, alert, well-appearing, NAD HENT: Normocephalic, atraumatic. EYES: Normal conjunctiva. Sclera non-icteric. PERRL. No anisocoria. NECK: Supple. No nuchal rigidity. FROM. RESPIRATORY: CTAB, no rhonchi, wheezing, crackles CARDIAC: RRR, no MRG ABDOMEN: Soft, NTND, BS+, RLQ ostomy with brown stool noted in colostomy bag. Midline abdominal incision scar. MSK: No chest wall TTP, no LE edema. No midline T or L spine TTP. Mild right sided lumbar paraspinal TTP. Lidoderm patch in place over right lower back. NEURO: GCS 15, CN 2-12 intact, moves all 4s on command, no saddle anesthesia. SKIN: No rash or jaundice noted. Medical Decision & Procedures ER Provider Diagnostic Interpretation: Radiology results as stated below per my review and radiologist interpretation: LUMBAR SPINE 2 OR 3 VIEWS CLINICAL HISTORY: Worsening back pain. History of L1 compression fracture. COMPARISON STUDY: July 2015, MRI dated 12/24/2017 the bones are osteopenic. FINDINGS: Again evident is a severe L1 compression fracture, slightly progressive when compared the preceding study. There is a new T12 compression fracture, and new L2 compression fracture. There is a right-sided ostomy. A small right pleural effusion is suspected. IMPRESSION: 1. Progressive severe L1 compression fracture 2. New T12 and L2 compression fractures 3. Severe osteopenia Electronically signed by: Grabiel Del Toro M.D. 01/21/2018 9:13 PM Dictated Date/Time: 01/21/2018 9:11 PM Laboratory Results 01/21/18 22:20 Red Blood Count 3.64, Mean Corpuscular Volume 97.0, Mean Corpuscular Hemoglobin 31.9, Mean Corpuscular Hemoglobin Concent 32.9, Mean Platelet Volume 9.2, Neutrophils (%) (Auto) 64.5, Lymphocytes (%) (Auto) 23.1, Monocytes (%) (Auto) 9.3, Eosinophils (%) (Auto) 2.6, Basophils (%) (Auto) 0.5, Neutrophils # (Auto) 3.73, Lymphocytes # (Auto) 1.34, Monocytes # (Auto) 0.54, Eosinophils # (Auto) 0.15, Basophils # (Auto) 0.03 Test 01/21/18 19:54 01/21/18 22:20 Urine Color YELLOW Urine Appearance CLEAR (CLEAR) Urine pH 7.5 (4.5-7.5) Urine Specific [place] 1.009 (1.000-1.030) Urine Protein NEG (NEG) Urine Glucose (UA) NEG (NEG) Urine Ketones NEG (NEG) Urine Occult Blood NEG (NEG) Urine Nitrite NEG (NEG) Urine Bilirubin NEG (NEG) Urine Urobilinogen NEG (NEG) Urine Leukocyte Esterase SMALL (NEG) Urine WBC (Auto) 1-5 /hpf (0-5) Urine RBC (Auto) 10-30 /hpf (0-4) Urine Hyaline Casts (Auto) 0 /lpf (0-5) Urine Epithelial Cells (Auto) 10-20 /lpf (0-5) Urine Bacteria (Auto) NEG (NEG) White Blood Count 5.79 K/uL (4.8-10.8) Red Blood Count 3.64 M/uL (4.2-5.4) Hemoglobin 11.6 g/dL (12.0-16.0) Hematocrit 35.3 % (37-47) Mean Corpuscular Volume 97.0 fL (80-100) Mean Corpuscular Hemoglobin 31.9 pg (25-34) Mean Corpuscular Hemoglobin Concent 32.9 g/dl (32-36) Platelet Count 316 K/uL (130-400) Mean Platelet Volume 9.2 fL (7.4-10.4) Neutrophils (%) (Auto) 64.5 % Lymphocytes (%) (Auto) 23.1 % Monocytes (%) (Auto) 9.3 % Eosinophils (%) (Auto) 2.6 % Basophils (%) (Auto) 0.5 % Neutrophils # (Auto) 3.73 K/uL (1.4-6.5) Lymphocytes # (Auto) 1.34 K/uL (1.2-3.4) Monocytes # (Auto) 0.54 K/uL (0.11-0.59) Eosinophils # (Auto) 0.15 K/uL (0-0.5) Basophils # (Auto) 0.03 K/uL (0-0.2) RDW Standard Deviation 45.5 fL (36.4-46.3) RDW Coefficient of Variation 12.9 % (11.5-14.5) Immature Granulocyte % (Auto) 0.0 % Immature Granulocyte # (Auto) 0.00 K/uL (0.00-0.02) Laboratory results reviewed by me Medications Administered Medications (Trade) Dose Ordered Sig/[place] Route Start Time Stop Time Status Last Admin Dose Admin Acetaminophen (Tylenol Tab) 650 mg NOW STAT PO 01/21/18 20:13 01/21/18 20:15 DC 01/21/18 20:26 650 MG Oxycodone HCl (Roxicodone Immediate Rel Tab) 5 mg NOW STAT PO 01/21/18 20:13 01/21/18 20:15 DC 01/21/18 20:27 5 MG Cyclobenzaprine HCl (Flexeril Tab) 5 mg ONE STAT PO 01/21/18 20:13 01/21/18 20:15 DC 01/21/18 20:27 5 MG Fentanyl Citrate (Fentanyl Inj) 25 mcg NOW ONCE IM 01/21/18 21:45 01/21/18 21:46 DC 01/21/18 21:47 25 MCG ED Course 1958: The patient was evaluated in room B6. A complete history and physical exam was performed. 2133: I reevaluated the patient. I updated her on the results. asset manager will speak with the patient about her options. 2215: I spoke to Dr. Aileen Streeter, [facility] [place] who agreed to further evaluate and treat patient. Medical Decision Nursing notes reviewed. Ancillary studies and prior records reviewed. The patient is an 87 year old white female with a past medical history of sepsis , HTN, interstitial cystitis, colon cancer, back fracture who presents to the ED with a cc of constant lower back pain beginning this afternoon. Differential diagnosis: Etiologies such as musculoskeletal, disc herniation, fracture, aortic disease, metastatic disease, cord compression, discitis, infection, renal colic, gastrointestinal, acute exacerbation of chronic back pain, sciatica, cauda equina, as well as others were entertained. Patient was seen and evaluated the bedside. Patient does not does have a prior history of colon cancer however this considered curative. Patient does have a history of an L1 compression fracture. Patient denies any recent strains sprains or heavy lifting. Patient does not use any immunosuppressant therapy at this time. Patient denies any bowel or bladder incontinence or saddle anesthesia. On exam the patient has good strength in her bilateral lower extremities. Patient does not have true midline tenderness but more right- sided paraspinal TTP. Patient does complain of increased urinary frequency and associated dysuria. Patient denies any blood in the urine. Patient did have an L-spine film completed, urinalysis, the patient was given medications for pain control. Upon reassessment the patient was not feeling much improved. The patient has a great amount of difficulty in trying to ambulate and really was not able to do so at the bedside. Patient was given additional IM fentanyl. Patient's L-spine films did show 2 new compression fractures at L2 and T12. Patient was informed of these findings. We initially did discuss inpatient versus outpatient treatment. It was noted that the patient had been seen as an inpatient in the past and they declined use a back brace given the prior history of colostomy use. Operative management was not recommended during her last inpatient stay for back pain. Given the patient's osteoporosis and new compression fractures with inability to ambulate well 2/2 to pain to perform her ADLs do not believe the patient is suitable for home at this time. Initially the patient was not wanting to stay in the hospital for further pain management and possible PT or OT. Patient does have symmetric strength b/l and w/o saddle anesthesia or bowel/bladder incontinence. No urinary retention. Less likely cauda equina. I did have the case management social worker discuss outpatient management options with the patient. The patient then acquiesced to stay in the hospital. I discussed the patient with the on-call hospitalist who agreed to further evaluate treat the patient. Patient was admitted to the medicine service. An IV line was started and basic blood work was obtained given that the patient was going to be staying in hospital. Medication Reconcilliation Current Medication List: was personally reviewed by me Blood Pressure Screening Patient's blood pressure: Elevated blood pressure Blood pressure disposition: Referred to PCP Consults Time Called: 2209 Consulting Physician: Dr. Aileen Streeter, [facility] [place] Hospital[place] Returned Call: [phone] She agreed to further eval and trx patient. Impression Primary Impression: Compression fracture Additional Impressions: Back pain Encounter for pain management Scribe Attestation The scribe's documentation has been prepared under my direction and personally reviewed by me in its entirety. I confirm that the note above accurately reflects all work, treatment, procedures, and medical decision making performed by me. Departure Information Dispostion Being Evaluated By Hospitalist Referrals Filiberto Pendleton M.D. (PCP) Patient Instructions My [facility] Problem Qualifiers Additional Impressions: Back pain Back pain location: low back pain Chronicity: acute Back pain laterality: right Sciatica presence: without sciatica Qualified Codes: M54.5 - Low back pain
[2018-01-21] MEDS ORDERED: ACETAMINOPHEN 325 MG TAB PO STA (20:13)
[2018-01-21] MEDS ORDERED: CYCLOBENZAPRINE HCL 5 MG TAB PO STA (20:13)
[2018-01-21] MEDS ORDERED: OXYCODONE HCL IR 5 MG TAB (IMMEDIATE RELEASE) PO STA (20:13)
--- NOTE | 2018-01-21 21:15 | DIAGNOSTIC IMAGING REPORT ---
LUMBAR SPINE 2 OR 3 VIEWS CLINICAL HISTORY: Worsening back pain. History of L1 compression fracture. COMPARISON STUDY: July 2015, MRI dated 12/24/2017 the bones are osteopenic. FINDINGS: Again evident is a severe L1 compression fracture, slightly progressive when compared the preceding study. There is a new T12 compression fracture, and new L2 compression fracture. There is a right-sided ostomy. A small right pleural effusion is suspected. IMPRESSION: 1. Progressive severe L1 compression fracture 2. New T12 and L2 compression fractures 3. Severe osteopenia Electronically signed by: Grabiel Del Toro M.D. 01/21/2018 9:13 PM Dictated Date/Time: 01/21/2018 9:11 PM
[2018-01-21] MEDS ORDERED: CALCTAB7 PO (21:33)
[2018-01-21] MEDS ORDERED: GABA-1219 PO (21:33)
[2018-01-21] MEDS ORDERED: CEFU1TAB35 PO (21:33)
[2018-01-21] MEDS ORDERED: CALC200S7 (21:33)
[2018-01-21] MEDS ORDERED: CALC-44 PO (21:33)
[2018-01-21] MEDS ORDERED: CHOL100027 PO (21:33)
[2018-01-21] MEDS ORDERED: FENTANYL CITRATE INJ 50 MCG/1 ML 2 ML VIAL IM ONE (21:45)
--- NOTE | 2018-01-21 22:27 | History and Physical ---
History & Physical Date & Time of Service: January 21, 2018 at 22:23 Chief Complaint: Back Pain Primary Care Physician: Filiberto Pendleton M.D. History of Present Illness Source: patient 87 yo F with a pMHx of sepsis, HTN, interstitial cystitis, colon cancer s/p colectomy with colostomy (11/30), s/p chemotherapy (last session 12/01), previous lumbar compression fracture presents to the ED with acute onset of low back pain since yesterday, with progressive worsening. Patient denies trauma, falls, heavy lifting or abrupt turns causing muscle strain. Pain is described as grabbing, without radiation. Her pain severity resulted in 1 episode of nausea and vomiting (no blood). She denies weakness, numbness, or tingling in her lower extremities, saddle paresthesias or urinary or fecal incontinence. She does describe dysuria but states that she took an antibiotic for this and it is somewhat better now, though not resolved. She ambulates with a walker at baseline, and intermittently a cane. She was admitted for back pain last month, and found to have an L1 fracture at that time. Ortho had recommended conservative management at that time. However, patient was unable to use the back brace given her colostomy. Her chemo was discontinued November 2017 due to "bone deterioration" as per patient, and since then she has been calcium (poor compliance due to large pill size), vitamin D, calcitonin, lidocaine patch, gabapentin and tramadol. She otherwise denies fevers/chills, headaches, CP, palpitations, dyspnea (although deep breathing causes worsened low back pain), abdominal pain, lower extremity swelling, rashes, or changes in bowel habits, and up until yesterday, was managing all ADLs independently at home, where she lives with her . ROS is unremarkable except as noted above. Past Medical/Surgical History Medical Problems: (1) Back pain (2) Colonic mass (3) Compression fracture of L1 lumbar vertebra (4) Compression fracture of L1 lumbar vertebra (5) DVT prophylaxis (6) Gait abnormality (7) Gram negative sepsis (8) HTN (hypertension) (9) Interstitial cystitis (10) Intra-abdominal fluid collection (11) Intractable back pain (12) Leukocytosis (13) Rash (14) Urinary tract infection (15) Vaginal burning (16) Vaginal irritation (17) Vaginitis (18) Yeast vaginitis Surgical Problems: (1) Hx of cervical polypectomy Family History FHx: cancer Hypertension Social History Smoking Status: Never Smoker Drug Use: none Marital Status: Housing status: lives with family Occupational Status: retired Immunizations History of Influenza Vaccine: Yes Influenza Vaccine Date: Jul 30, 2012 History of Tetanus Vaccine?: Yes Tetanus Immunization Date: February 07, 2010 History of Pneumococcal: Yes Pneumococcal Date: Aug 23, 2010 History of Hepatitis B Vaccine: No Allergies Coded Allergies: Diltiazem (Verified Allergy, Severe, TIGHTENING OF THROAT, 12/24/17) Hydralazine (Verified Allergy, Intermediate, RASH, 12/24/17) Azithromycin (Verified Allergy, Mild, PT UNSURE, 12/24/17) Nifedipine (Verified Allergy, Unknown, EXACERBATION INTERSTITIAL CYCSTITIS , 12/24/17) Nitrofurantoin (Verified Allergy, Unknown, RASH, 12/24/17) Quinine (Verified Allergy, Unknown, PT UNSURE, 12/24/17) Sulfa Antibiotics (Verified Allergy, Unknown, PATIENT UNSURE, 12/24/17) Clindamycin (Unverified Adverse Reaction, Severe, CHEST PAIN/UPSET STOMACH , 12/25/17) Doxycycline (Unverified Adverse Reaction, Intermediate, LIGHT HEADED/ NAUSEA, 12/25/17) Quinolones (Verified Adverse Reaction, Intermediate, CIPRO- NAUSEA, NERVOUS, CHILLS, 12/24/17) Hydrocodone (Verified Adverse Reaction, Mild, GI UPSET, 12/25/17) Meperidine (Verified Adverse Reaction, Mild, GI UPSET, 12/25/17) Metronidazole (Verified Adverse Reaction, Mild, STOMACH PAIN, 12/24/17) Prochlorperazine (Verified Adverse Reaction, Mild, "BODY SHAKES", 12/25/17) Simvastatin (Verified Adverse Reaction, Mild, STOMACH PAIN, 12/24/17) Beta Adrenergic Blockers (Verified Adverse Reaction, Unknown, "Secondary AVB", 12/24/17) Ciprofloxacin (Verified Adverse Reaction, Unknown, GI SYMPTOMS, 12/25/17) Hydrochlorothiazide (Verified Adverse Reaction, Unknown, DYSURIA, 12/25/17) Lisinopril (Verified Adverse Reaction, Unknown, "INTOLERANCE" PER DR PENDLETON, 12/24/17) Losartan (Verified Adverse Reaction, Unknown, JITTRTACY NICHOLE, 12/25/17) Methenamine (Verified Adverse Reaction, Unknown, STOMACH PAIN, 12/24/17) Phenothiazines (Verified Adverse Reaction, Unknown, SHAKEY, 12/24/17) Spironolactone (Verified Adverse Reaction, Unknown, RECTAL PRESSURE, PAIN , 12/25/17) Terazosin (Verified Adverse Reaction, Unknown, LIGHTHEADEDNESS AND NAUSEA , 12/25/17) Valdecoxib (Verified Adverse Reaction, Unknown, GI SYMPTOMS, 12/24/17) Home Medications Scheduled Atorvastatin (Lipitor), 10 MG PO HS Calcitonin ([place]) (Miacalcin), 1 SPRAY NA QPM Calcium Carbonate-Vitamin D W/ (Caltrate 600 Plus), 1 TAB PO DAILY Cefuroxime Axetil (Cefuroxime Axetil), 500 MG PO BID Cholecalciferol (Vitamin D 1000 Unit), 1,000 INTER.UNIT PO DAILY Clobetasol Propionate (Clobetasol Propionate Cream 0.05%), 1 APPLN EXT 2XWK Ferrous Sulfate (Kp Ferrous Sulfate), 1 TAB PO DAILY Gabapentin (Gabapentin), 300 MG PO TID Ibuprofen Tab (Advil), 200 MG PO UD Lidocaine (Lidocaine), 1 PATCH TD QAM Loratadine (Claritin), 10 MG PO QAM Methenamine Hippurate (Methenamine Hippurate), 1 TAB PO on hold Omeprazole (Prilosec), 20 MG PO QAM Pentosan Polysulfate Sodium (Elmiron), 100 MG PO BID Telmisartan (Micardis), 40 MG PO QAM Scheduled PRN Calcium Glycerophosphate (Prelief), 1 TAB PO DAILY PRN for acidy food Ondansetron Hcl (Zofran), 8 MG PO Q8H PRN for Nausea Phenazopyridine HCl (Pyridium), 200 MG PO TID PRN for PRN Pyridoxine (Vitamin B6), 100 MG PO DAILY PRN for LEG CRAMPS Tramadol (Ultram), 50 MG PO Q6 PRN for Pain Physical Exam Vital Signs Date Time Temp Pulse Resp B/P (MAP) Pulse Ox O2 Delivery O2 Flow Rate FiO2 01/21/18 20:33 89 01/21/18 19:46 36.8 103 18 211/85 98 Room Air General Appearance: WD/WN, no apparent distress Head: normocephalic, atraumatic Eyes: sclerae normal ENT: hearing grossly normal, pharynx normal Neck: supple, no adenopathy, no JVD Respiratory/Chest: normal breath sounds, no respiratory distress, no accessory muscle use Cardiovascular: regular rate, rhythm, no murmur, normal peripheral pulses Abdomen/GI: normal bowel sounds, soft, + tenderness (mild suprapubic tenderness ), + pertinent finding (Colostomy on RUQ - no signs of infection, output in bag appears normal) Back: normal inspection, + paravertebral tenderness, + pertinent finding ( Tender on minimal movement, relieved with stillness. Midline tenderness through out lumbar region) Extremities/Musculoskelatal: no calf tenderness, no pedal edema Neurologic/Psych: no motor/sensory deficits, alert, normal mood/affect Skin: normal color, warm/dry, no rash Diagnostics Laboratory Results Results Past 24 Hours Test 01/21/18 19:54 01/21/18 22:15 Range/Units Urine Color YELLOW Urine Appearance CLEAR CLEAR Urine pH 7.5 4.5-7.5 Urine Specific [place] 1.009 1.000-1.030 Urine Protein NEG NEG Urine Glucose (UA) NEG NEG Urine Ketones NEG NEG Urine Occult Blood NEG NEG Urine Nitrite NEG NEG Urine Bilirubin NEG NEG Urine Urobilinogen NEG NEG Urine Leukocyte Esterase SMALL NEG Urine WBC (Auto) 1-5 0-5 /hpf Urine RBC (Auto) 10-30 0-4 /hpf Urine Hyaline Casts (Auto) 0 0-5 /lpf Urine Epithelial Cells (Auto) 10-20 0-5 /lpf Urine Bacteria (Auto) NEG NEG Diagnostic Radiology LUMBAR SPINE 2 OR 3 VIEWS CLINICAL HISTORY: Worsening back pain. History of L1 compression fracture. COMPARISON STUDY: July 2015, MRI dated 12/24/2017 the bones are osteopenic. FINDINGS: Again evident is a severe L1 compression fracture, slightly progressive when compared the preceding study. There is a new T12 compression fracture, and new L2 compression fracture. There is a right-sided ostomy. A small right pleural effusion is suspected. IMPRESSION: 1. Progressive severe L1 compression fracture 2. New T12 and L2 compression fractures 3. Severe osteopenia Impression Assessment and Plan 87 yo F with a pMHx of sepsis, HTN, interstitial cystitis, colon cancer s/p colectomy with colostomy (11/30), s/p chemotherapy (last session 12/01), previous lumbar compression fracture presents to the ED with acute onset of low back pain confirmed to be secondary to progressive severe L1 compression fracture and new T12 and L2 compression fractures Compression fractures - q4h neurovascular checks of lower extremities - will need more extensive imaging if deficits present - Pain management: scheduled Tylenol, gabapentin, calcitonin and lidocaine patch. Heat pack ordered. PRN tramadol and morphine for break through pain. ( All home meds except morphine) - Zepeda inserted for now given inability to ambulate due to pain - Consult orthopedics - patient would like to know of surgical options available to her - Continue calcium and vitamin D supplementation - Ondansetron PRN nausea - PPI discontinued as possible offending agent for decreased calcium absorption - PT and OT ordered - Recommend outpatient DEXA scan and discussion of potential benefit with bisphosphonate or teriparatide therapy Chronic interstitial cystitis - UA shows small leuks, although sample contaminated. Also possibly partially treated. Urine sent for culture - Continue home meds methenamine and Pyridium - Zepeda in place for now for pain, as above GERD - Omeprazole discontinued. Started on ranitidine. Patient hesitant given severe GERD symptoms, but willing to try with recurrence of restarting PPI if GERD symptoms severe HTN - Likely elevated currently secondary to pain - Continue telmisartan - Monitor BPs HLD - Continue atorvastatin VTE ppx - Hep SC Code: FULL Resuscitation Status FULL VTE Prophylaxis Will order VTE Prophylaxis: Yes Resident Tracking Resident Involvement: Resident Care Provided Care Provided: Adult Hospital Medicine History Patient seen and examined, chart reviewed, case discussed with Dr. Beckwith and I agree with her assessment and plan as documented above. Briefly, patient is an 87yo female with history of colon cancer s/p colectomy with colostomy who was recently admitted December 25 for intractable back pain. At that time a subacute compression fracture of L1 and osteopenia was discovered. She was seen by Spinal Surgery and recommended PT/OT and a back brace, started on calcitonin nasal spray, calcium-Vitamin D supplementation and discharged home. She returns today with progressive back pain, inability to ambulate or perform her ADLs. A lumbar x-ray was performed and revealed progressive severe L1 fracture as well as new T12 and L2 compression fractures and severe osteopenia. She denies fevers/chills/incontinence/numbness/weakness. On exam she is afebrile, hypertensive at 211/85, tachycardic on arrival at 103. Patient in mild distress secondary to pain. HEENT exam unremarkable. Heart +S1/S2, regular with ectopy, Lungs CTA anteriorly, abdomen with mild suprapubic tenderness, Zepeda catheter in place. Extremities warm, well perfused. Neurologically intact MS 5/5 in bilateral LE, no saddle anesthesia. Labs and imaging reviewed. Asssessment: 87yo female with compression fracture of T12-L2, severe intractable back pain and inability ambulate. 1. Compression fractures - Will admit to [facility] for intractable back pain. Pain and nausea control. Neuro checks. Ortho consult re: possible intervention. Will obtain MRI T-L spine if neurologic deficits develop. Continue Ca-VitD supplement. ?Need for bisphosphonate 2. HTN patient with markedly elevated BP at present most likely secondary to pain. She states her SBP is typically 140-150 at home. Continue home medications 3. Chronic interstitial cystitis continue home medications. Check urine culture. 4. Remainder of plan as above.
[2018-01-21 22:36] LABS: BASO % 0.5 %; BASO ABS # 0.03 K/uL (0-0.2); EOS % 2.6 %; EOS ABS # 0.15 K/uL (0-0.5); HEMATOCRIT 35.3 % (37-47); HEMOGLOBIN 11.6 g/dL (12.0-16.0); LYMPH % 23.1 %; LYMPH ABS # 1.34 K/uL (1.2-3.4); MEAN CORPUSCULAR HEMOGLOBIN 31.9 pg (25-34); MEAN CORPUSCULAR HGB CONC 32.9 g/dl (32-36); MEAN PLATELET VOLUME 9.2 fL (7.4-10.4); MONO % 9.3 %; MONO ABS # 0.54 K/uL (0.11-0.59); NEUT % 64.5 %; NEUT ABS # 3.73 K/uL (1.4-6.5); PLATELET COUNT 316 K/uL (130-400); RED CELL DISTRIBUTION WIDTH CV 12.9 % (11.5-14.5); RED CELL DISTRIBUTION WIDTH SD 45.5 fL (36.4-46.3); WHITE BLOOD COUNT 5.79 K/uL (4.8-10.8)
[2018-01-21 22:43] LABS: PTT PATIENT 28.6 SECONDS (21.0-31.0)
[2018-01-21 22:54] LABS: CALCIUM 8.8 mg/dl (8.5-10.1); CREATININE 0.85 mg/dl (0.60-1.20); POTASSIUM 4.1 mmol/L (3.5-5.1)
[2018-01-21] MEDS ORDERED: PHENAZOPYRIDINE HCL 200 MG TAB PO PRN (23:15)
[2018-01-21] MEDS ORDERED: ALUMINUM/MAGNESIUM/SIMETH (MAALOX MAX) 30 ML UDC PO PRN (23:15)
[2018-01-21] MEDS ORDERED: MAGNESIUM HYDROXIDE SUSP 30 ML UDC PO PRN (23:15)
[2018-01-21] MEDS ORDERED: ONDANSETRON INJ 2 MG/ML 2 ML VIAL IV PRN (23:15)
[2018-01-21] MEDS ORDERED: PYRIDOXINE HCL 50 MG TAB PO PRN (23:15)
[2018-01-21] MEDS ORDERED: POLYETHYLENE (MIRALAX) 17 GM PACK PO PRN (23:45)
[2018-01-21] MEDS ORDERED: FENTANYL CITRATE INJ 50 MCG/1 ML 2 ML VIAL IV PRN (23:45)
[2018-01-22 00:15] VITALS: BP 211/77; PULSE 93; TEMP 36.8; O2SAT 97; Ht 160 cm; Wt 60.5 kg
[2018-01-22] MEDS: ACETAMINOPHEN 500 MG TAB PO SCH ×4 (00:44→21:04)
[2018-01-22] MEDS ORDERED: IV FLUIDS COMPLETED PRN (00:45)
[2018-01-22] MEDS: MoRPHine SULFATE 4 MG/ML 1 ML CARP\\VIAL IV PRN ×2 (00:55→08:08)
[2018-01-22 07:22] VITALS: BP 189/78; PULSE 83; TEMP 36.8; O2SAT 97
[2018-01-22] MEDS: TELMISARTAN 40 MG TAB PO SCH (08:13)
[2018-01-22] MEDS: GABAPENTIN 300 MG CAP PO SCH ×3 (08:13→21:03)
[2018-01-22] MEDS: METHENAMINE HIPPURATE 1 GM TAB PO SCH (08:13)
[2018-01-22] MEDS: CHOLECALCIFEROL 1000 INTER.UNIT TAB PO SCH (08:13)
[2018-01-22] MEDS: LORATADINE 10 MG TAB PO SCH (08:13)
[2018-01-22] MEDS: PENTOSAN POLYSULFATE SODIUM 100 MG CAP PO SCH ×2 (08:13→21:03)
[2018-01-22] MEDS: RANITIDINE HCL 150 MG TAB PO SCH ×2 (08:14→21:03)
[2018-01-22] MEDS: CALCIUM 600MG + VIT D 400 IU TAB PO SCH (08:14)
[2018-01-22] MEDS: LIDODERM (LIDOCAINE) PATCH 5% TD SCH (08:14)
[2018-01-22] MEDS: HEPARIN SOD 5000 UNIT/0.5 ML CARP SQ SCH ×2 (09:11→21:09)
[2018-01-22] MEDS: CLOBETASOL~ORDER AWAITING ACTION SCH ×3 (09:58→23:33)
[2018-01-22 10:44] VITALS: BP 174/74
[2018-01-22] MEDS ORDERED: CYCLOBENZAPRINE HCL 10 MG TAB PO STA (10:48)
[2018-01-22] MEDS ORDERED: MoRPHine SULFATE 4 MG/ML 1 ML CARP\\VIAL IV PRN (11:00)
--- NOTE | 2018-01-22 12:52 | Orthopedic Consultation ---
Orthopedic Consultation Date of Consultation: January 22, 2018. Attending Physician: Claudia Archuleta M.D. Reason for Consultation: Back pain History of Present Illness Severe isabel 87-year-old female that has had a marked decline in status recently. She has had a known compression fracture L1 but now progresses with a T12 and L2 fracture. She denies any precipitating trauma fall or event. She states any activity exacerbates her back pain is currently struggling with back spasms. She denies any pain numbness or tingling extending into the buttocks or bilateral extremities. Past Medical/Surgical History Medical Problems: (1) Back pain Status: Acute (2) Back pain Status: Acute (3) Compression fracture Status: Acute (4) Compression fracture of L1 lumbar vertebra Status: Acute (5) Compression fracture of L1 lumbar vertebra Status: Acute (6) Encounter for pain management Status: Acute (7) Intractable back pain Status: Acute (8) Rash Status: Acute (9) Urinary tract infection Status: Acute (10) Vaginal burning Status: Acute Family History FHx: cancer Hypertension Social History Smoking Status: Never Smoker Drug Use: none Marital Status: Housing Status: lives with significant other Occupation Status: retired Allergies Coded Allergies: Diltiazem (Verified Allergy, Severe, TIGHTENING OF THROAT, 12/24/17) Hydralazine (Verified Allergy, Intermediate, RASH, 12/24/17) Azithromycin (Verified Allergy, Mild, PT UNSURE, 12/24/17) Nifedipine (Verified Allergy, Unknown, EXACERBATION INTERSTITIAL CYCSTITIS , 12/24/17) Nitrofurantoin (Verified Allergy, Unknown, RASH, 12/24/17) Quinine (Verified Allergy, Unknown, PT UNSURE, 12/24/17) Sulfa Antibiotics (Verified Allergy, Unknown, PATIENT UNSURE, 12/24/17) Clindamycin (Unverified Adverse Reaction, Severe, CHEST PAIN/UPSET STOMACH , 12/25/17) Doxycycline (Unverified Adverse Reaction, Intermediate, LIGHT HEADED/ NAUSEA, 12/25/17) Quinolones (Verified Adverse Reaction, Intermediate, CIPRO- NAUSEA, NERVOUS, CHILLS, 12/24/17) Hydrocodone (Verified Adverse Reaction, Mild, GI UPSET, 12/25/17) Meperidine (Verified Adverse Reaction, Mild, GI UPSET, 12/25/17) Metronidazole (Verified Adverse Reaction, Mild, STOMACH PAIN, 12/24/17) Prochlorperazine (Verified Adverse Reaction, Mild, "BODY SHAKES", 12/25/17) Simvastatin (Verified Adverse Reaction, Mild, STOMACH PAIN, 12/24/17) Beta Adrenergic Blockers (Verified Adverse Reaction, Unknown, "Secondary AVB", 12/24/17) Ciprofloxacin (Verified Adverse Reaction, Unknown, GI SYMPTOMS, 12/25/17) Hydrochlorothiazide (Verified Adverse Reaction, Unknown, DYSURIA, 12/25/17) Lisinopril (Verified Adverse Reaction, Unknown, "INTOLERANCE" PER DR COLON, 12/24/17) Losartan (Verified Adverse Reaction, Unknown, JITTERY,SJAKEY, 12/25/17) Methenamine (Verified Adverse Reaction, Unknown, STOMACH PAIN, 12/24/17) Phenothiazines (Verified Adverse Reaction, Unknown, SHAKEY, 12/24/17) Spironolactone (Verified Adverse Reaction, Unknown, RECTAL PRESSURE, PAIN , 12/25/17) Terazosin (Verified Adverse Reaction, Unknown, LIGHTHEADEDNESS AND NAUSEA , 12/25/17) Valdecoxib (Verified Adverse Reaction, Unknown, GI SYMPTOMS, 12/24/17) Home Medications Scheduled Atorvastatin (Lipitor), 10 MG PO HS Calcitonin ([place]) (Miacalcin), 1 SPRAY NA QPM Calcium Carbonate-Vitamin D W/ (Caltrate 600 Plus), 1 TAB PO DAILY Cefuroxime Axetil (Cefuroxime Axetil), 500 MG PO BID Cholecalciferol (Vitamin D 1000 Unit), 1,000 INTER.UNIT PO DAILY Clobetasol Propionate (Clobetasol Propionate Cream 0.05%), 1 APPLN EXT 2XWK Ferrous Sulfate (Kp Ferrous Sulfate), 1 TAB PO DAILY Gabapentin (Gabapentin), 300 MG PO TID Ibuprofen Tab (Advil), 200 MG PO UD Lidocaine (Lidocaine), 1 PATCH TD QAM Loratadine (Claritin), 10 MG PO QAM Methenamine Hippurate (Methenamine Hippurate), 1 TAB PO on hold Omeprazole (Prilosec), 20 MG PO QAM Pentosan Polysulfate Sodium (Elmiron), 100 MG PO BID Telmisartan (Micardis), 40 MG PO QAM Scheduled PRN Calcium Glycerophosphate (Prelief), 1 TAB PO DAILY PRN for acidy food Ondansetron Hcl (Zofran), 8 MG PO Q8H PRN for Nausea Phenazopyridine HCl (Pyridium), 200 MG PO TID PRN for PRN Pyridoxine (Vitamin B6), 100 MG PO DAILY PRN for LEG CRAMPS Tramadol (Ultram), 50 MG PO Q6 PRN for Pain Current Inpatient Medications Current Inpatient Medications Medications (Trade) Dose Ordered Sig/Aleksander Route Start Time Stop Time Status Last Admin Dose Admin Acetaminophen (Tylenol Tab) 1,000 mg Q8 PO 01/22/18 00:30 02/21/18 00:29 01/22/18 08:13 1,000 MG Al Hydrox/Mg Hydrox/Simethicone (Maalox Max Susp) 15 ml Q4H PRN PO 01/21/18 23:15 02/20/18 23:14 Magnesium Hydroxide (Milk Of Magnesia Susp) 30 ml Q6H PRN PO 01/21/18 23:15 02/20/18 23:14 Polyethylene (Miralax Powder Packet) 17 gm DAILY PRN PO 01/21/18 23:45 02/20/18 23:44 Ondansetron HCl (Zofran Inj) 4 mg Q6H PRN IV 01/21/18 23:15 02/20/18 23:14 Heparin Sodium (Porcine) (Heparin Sq 5000 Unit/0.5ml) 5,000 unit Q12H SQ 01/22/18 09:00 02/21/18 08:59 01/22/18 09:11 5,000 UNIT Atorvastatin Calcium (Lipitor Tab) 10 mg HS PO 01/22/18 21:00 02/21/18 20:59 Calcitonin [place] (Fortical Nasal [place]) 1 spray QPM NA 01/22/18 21:00 02/21/18 20:59 Calcium/Vitamin D (Caltrate Plus Tab) 1 tab DAILY PO 01/22/18 09:00 02/21/18 08:59 01/22/18 08:14 1 TAB Cholecalciferol (Vitamin D Tab) 1,000 inter.unit DAILY PO 01/22/18 09:00 02/21/18 08:59 01/22/18 08:13 1,000 INTER.UNIT Gabapentin (Neurontin Cap) 300 mg TID PO 01/22/18 09:00 02/21/18 08:59 01/22/18 08:13 300 MG Lidocaine (Lidoderm Patch 5%) 1 patch QAM TD 01/22/18 09:00 02/21/18 08:59 01/22/18 08:14 1 PATCH Loratadine (Claritin Tab) 10 mg QAM PO 01/22/18 09:00 02/21/18 08:59 01/22/18 08:13 10 MG Methenamine Hippurate (Urex Tab) 1 gm DAILY PO 01/22/18 09:00 01/27/18 08:59 01/22/18 08:13 1 GM Phenazopyridine HCl (Pyridium Tab) 200 mg TID PRN PO 01/21/18 23:15 02/20/18 23:14 Pyridoxine HCl (Vitamin B-6 Tab) 100 mg DAILY PRN PO 01/21/18 23:15 02/20/18 23:14 Telmisartan (Micardis Tab) 40 mg QAM PO 01/22/18 09:00 02/21/18 08:59 01/22/18 08:13 40 MG Tramadol HCl (Ultram Tab) 50 mg Q6 PRN PO 01/21/18 23:15 02/20/18 23:14 Miscellaneous Information (Order Awaiting Action) 1 ea QS N/A 01/22/18 08:00 02/21/18 07:59 Pentosan Polysulfate Sodium (Elmiron) 100 mg BID PO 01/22/18 09:00 02/21/18 08:59 01/22/18 08:13 100 MG Miscellaneous (Remove Lidoderm Patch) 1 ea DAILY@21 N/A 01/22/18 21:00 02/21/18 20:59 Ranitidine HCl (zANTac TAB) 150 mg BID PO 01/22/18 09:00 02/21/18 08:59 01/22/18 08:14 150 MG Miscellaneous (Iv Fluids Completed) 1 ea PRN PRN N/A 01/22/18 00:45 01/22/19 00:44 Cyclobenzaprine HCl (Flexeril Tab) 10 mg BID PO 01/22/18 21:00 02/21/18 20:59 Morphine Sulfate (MoRPHine SULFATE INJ) 2 mg Q4H PRN IV 01/22/18 11:00 02/05/18 00:29 Physical Exam Date Time Temp Pulse Resp B/P (MAP) Pulse Ox O2 Delivery O2 Flow Rate FiO2 01/22/18 10:44 174/74 (107) 01/22/18 08:10 Room Air 01/22/18 07:22 36.8 83 16 189/78 (115) 97 Room Air 01/22/18 00:15 97 Room Air 01/22/18 00:15 36.8 93 16 211/77 97 Room Air 01/22/18 00:00 78 18 178/61 97 01/21/18 22:15 80 20 205/78 96 Room Air 01/21/18 20:33 89 01/21/18 19:46 36.8 103 18 211/85 98 Room Air On exam patient does have significant back pain upon motion in bed. She exhibits reasonable strength testing bilateral lower extremities. Sensory is symmetric and intact. Laboratory Results Last 24 Hours Test 01/21/18 19:54 01/21/18 22:20 Urine Color YELLOW Urine Appearance CLEAR Urine pH 7.5 Urine Specific [place] 1.009 Urine Protein NEG Urine Glucose (UA) NEG Urine Ketones NEG Urine Occult Blood NEG Urine Nitrite NEG Urine Bilirubin NEG Urine Urobilinogen NEG Urine Leukocyte Esterase SMALL Urine WBC (Auto) 1-5 /hpf Urine RBC (Auto) 10-30 /hpf Urine Hyaline Casts (Auto) 0 /lpf Urine Epithelial Cells (Auto) 10-20 /lpf Urine Bacteria (Auto) NEG White Blood Count 5.79 K/uL Red Blood Count 3.64 M/uL Hemoglobin 11.6 g/dL Hematocrit 35.3 % Mean Corpuscular Volume 97.0 fL Mean Corpuscular Hemoglobin 31.9 pg Mean Corpuscular Hemoglobin Concent 32.9 g/dl Platelet Count 316 K/uL Mean Platelet Volume 9.2 fL Neutrophils (%) (Auto) 64.5 % Lymphocytes (%) (Auto) 23.1 % Monocytes (%) (Auto) 9.3 % Eosinophils (%) (Auto) 2.6 % Basophils (%) (Auto) 0.5 % Neutrophils # (Auto) 3.73 K/uL Lymphocytes # (Auto) 1.34 K/uL Monocytes # (Auto) 0.54 K/uL Eosinophils # (Auto) 0.15 K/uL Basophils # (Auto) 0.03 K/uL RDW Standard Deviation 45.5 fL RDW Coefficient of Variation 12.9 % Immature Granulocyte % (Auto) 0.0 % Immature Granulocyte # (Auto) 0.00 K/uL Prothrombin Time 10.5 SECONDS Prothromb Time International Ratio 1.0 Activated Partial Thromboplast Time 28.6 SECONDS Partial Thromboplastin Ratio 1.1 Sodium Level 136 mmol/L Potassium Level 4.1 mmol/L Chloride Level 102 mmol/L Carbon Dioxide Level 31 mmol/L Anion Gap 4.0 mmol/L Blood Urea Nitrogen 16 mg/dl Creatinine 0.85 mg/dl Est Creatinine Clear Calc Drug Dose 40.0 ml/min Estimated GFR () 72.4 Estimated GFR (Non- 62.5 BUN/Creatinine Ratio 18.9 Random Glucose 101 mg/dl Calcium Level 8.8 mg/dl Assessment & Plan Assessment acute on chronic compression fractures of the thoracolumbar spine. Plan at this time she would be a very poor surgical candidate. She has significant osteoporosis and appears to be sustaining fractures with relatively little to no activity. My concern is that kyphoplasty would create significant adjacent level stresses increasing likelihood of continued compression fractures. At this time to be best served with pain management. She does express that she is not interested in surgical intervention.
[2018-01-22 15:19] VITALS: BP 110/74; PULSE 85; TEMP 37.1; O2SAT 96
--- NOTE | 2018-01-22 18:57 | Family Medicine Progress Note ---
Progress Note Date of Service January 22, 2018. Subjective Pt is visibly wincing in pain when I enter the room this morning. Small movements exacerbate her back pain. When she is still she is able to be without pain, but deep inspiration even exacerbates her pain in her back. Otherwise pt denies chest pain or difficulty breathing. Per nursing pt is not able to ambulate without severe pain in her back. No acute events overnight. ROS See HPI for pertinent positives and negatives. Objective Physical Exam Notes: GENERAL: Awake, alert, in moderate distress. Wincing. HENT: Normocephalic, atraumatic. EYES: Normal conjunctiva. Sclera non-icteric. NECK: Supple. FROM. RESPIRATORY: Clear to auscultation. CARDIAC: Regular rate, normal rhythm. Extremities warm and well perfused. Pulses equal. ABDOMEN: Soft, non-distended. No tenderness to palpation. No rebound or guarding. No masses. MSK: limited exam due to pt's level of pain LOWER EXTREMITIES: Calves are equal size bilaterally and non-tender. No edema. No discoloration. NEURO: No motor deficits noted. SKIN: No rash or jaundice noted. Assessment and Plan 87 yo F with a pMHx of sepsis, HTN, colon cancer s/p colectomy with colostomy (), s/p chemotherapy (last session 12/01), previous lumbar compression fracture presents to the ED with acute onset of low back pain confirmed to be secondary to progressive severe L1 compression fracture and new T12 and L2 compression fractures 1. Compression fractures - Pain management: scheduled Tylenol, gabapentin, calcitonin and lidocaine patch. Heat pack ordered. PRN tramadol and morphine - morphine increased frequency to q4, and added flexeril. Pain is reportedly controlled this evening. - Zepeda inserted for now given inability to ambulate due to pain - Consult orthopedics, appreciate recs. Pt is not a good surgical candidate at this time given significant osteoporosis, and likelihood of worsening functional status and further compression fractures. Rec pain management. Pt expressed that she is not interested in surgery to Dr. Sanchez. - Continue calcium and vitamin D supplementation - Ondansetron PRN nausea - PPI discontinued as possible offending agent for decreased calcium absorption - PT and OT ordered - Recommend outpatient DEXA scan and discussion of potential benefit with bisphosphonate or teriparatide therapy 2. Chronic interstitial cystitis - UA shows small leuks, although sample contaminated. Also possibly partially treated. Urine sent for culture - Continue home meds methenamine and Pyridium - Zepeda in place for now for pain, as above 3. GERD - Omeprazole discontinued. Started on ranitidine. Stable. Will consider restarting PPI if GERD symptoms worsen. 4. HTN - Likely elevated currently secondary to pain - has improved over the day. - Continue telmisartan - Monitor BPs HLD - Continue atorvastatin VTE ppx - Hep SC Code: FULL Dispo: med/surg. Await PT/OT recs, may need rehab on dc. Current Inpatient Medications Medications (Trade) Dose Ordered Sig/Aleksander Route Start Time Stop Time Status Last Admin Dose Admin Acetaminophen (Tylenol Tab) 1,000 mg Q8 PO 01/22/18 00:30 02/21/18 00:29 01/22/18 14:00 1,000 MG Al Hydrox/Mg Hydrox/Simethicone (Maalox Max Susp) 15 ml Q4H PRN PO 01/21/18 23:15 02/20/18 23:14 Magnesium Hydroxide (Milk Of Magnesia Susp) 30 ml Q6H PRN PO 01/21/18 23:15 02/20/18 23:14 Polyethylene (Miralax Powder Packet) 17 gm DAILY PRN PO 01/21/18 23:45 02/20/18 23:44 Ondansetron HCl (Zofran Inj) 4 mg Q6H PRN IV 01/21/18 23:15 02/20/18 23:14 Heparin Sodium (Porcine) (Heparin Sq 5000 Unit/0.5ml) 5,000 unit Q12H SQ 01/22/18 09:00 02/21/18 08:59 01/22/18 09:11 5,000 UNIT Atorvastatin Calcium (Lipitor Tab) 10 mg HS PO 01/22/18 21:00 02/21/18 20:59 Calcitonin [place] (Fortical Nasal [place]) 1 spray QPM NA 01/22/18 21:00 02/21/18 20:59 Calcium/Vitamin D (Caltrate Plus Tab) 1 tab DAILY PO 01/22/18 09:00 02/21/18 08:59 01/22/18 08:14 1 TAB Cholecalciferol (Vitamin D Tab) 1,000 inter.unit DAILY PO 01/22/18 09:00 02/21/18 08:59 01/22/18 08:13 1,000 INTER.UNIT Gabapentin (Neurontin Cap) 300 mg TID PO 01/22/18 09:00 02/21/18 08:59 01/22/18 13:59 300 MG Lidocaine (Lidoderm Patch 5%) 1 patch QAM TD 01/22/18 09:00 02/21/18 08:59 01/22/18 08:14 1 PATCH Loratadine (Claritin Tab) 10 mg QAM PO 01/22/18 09:00 02/21/18 08:59 01/22/18 08:13 10 MG Methenamine Hippurate (Urex Tab) 1 gm DAILY PO 01/22/18 09:00 01/27/18 08:59 01/22/18 08:13 1 GM Phenazopyridine HCl (Pyridium Tab) 200 mg TID PRN PO 01/21/18 23:15 02/20/18 23:14 Pyridoxine HCl (Vitamin B-6 Tab) 100 mg DAILY PRN PO 01/21/18 23:15 02/20/18 23:14 Telmisartan (Micardis Tab) 40 mg QAM PO 01/22/18 09:00 02/21/18 08:59 01/22/18 08:13 40 MG Tramadol HCl (Ultram Tab) 50 mg Q6 PRN PO 01/21/18 23:15 02/20/18 23:14 Miscellaneous Information (Order Awaiting Action) 1 ea QS N/A 01/22/18 08:00 02/21/18 07:59 Pentosan Polysulfate Sodium (Elmiron) 100 mg BID PO 01/22/18 09:00 02/21/18 08:59 01/22/18 08:13 100 MG Miscellaneous (Remove Lidoderm Patch) 1 ea DAILY@21 N/A 01/22/18 21:00 02/21/18 20:59 Ranitidine HCl (zANTac TAB) 150 mg BID PO 01/22/18 09:00 02/21/18 08:59 01/22/18 08:14 150 MG Miscellaneous (Iv Fluids Completed) 1 ea PRN PRN N/A 01/22/18 00:45 01/22/19 00:44 Cyclobenzaprine HCl (Flexeril Tab) 10 mg BID PO 01/22/18 21:00 02/21/18 20:59 Morphine Sulfate (MoRPHine SULFATE INJ) 2 mg Q4H PRN IV 01/22/18 11:00 02/05/18 00:29 01/22/18 16:12 2 MG Date Time Temp Pulse Resp B/P (MAP) Pulse Ox O2 Delivery O2 Flow Rate FiO2 01/22/18 15:35 Room Air 01/22/18 15:19 37.1 85 17 110/74 (86) 96 Room Air 01/22/18 10:44 174/74 (107) 01/22/18 08:10 Room Air 01/22/18 07:22 36.8 83 16 189/78 (115) 97 Room Air 01/22/18 00:15 97 Room Air 01/22/18 00:15 36.8 93 16 211/77 97 Room Air 01/22/18 00:00 78 18 178/61 97 01/21/18 22:15 80 20 205/78 96 Room Air 01/21/18 20:33 89 01/21/18 19:46 36.8 103 18 211/85 98 Room Air 01/21/18 22:20 Red Blood Count 3.64, Mean Corpuscular Volume 97.0, Mean Corpuscular Hemoglobin 31.9, Mean Corpuscular Hemoglobin Concent 32.9, Mean Platelet Volume 9.2, Neutrophils (%) (Auto) 64.5, Lymphocytes (%) (Auto) 23.1, Monocytes (%) (Auto) 9.3, Eosinophils (%) (Auto) 2.6, Basophils (%) (Auto) 0.5, Neutrophils # (Auto) 3.73, Lymphocytes # (Auto) 1.34, Monocytes # (Auto) 0.54, Eosinophils # (Auto) 0.15, Basophils # (Auto) 0.03 01/21/18 22:20 Test 01/21/18 19:54 01/21/18 22:20 Urine Color YELLOW Urine Appearance CLEAR (CLEAR) Urine pH 7.5 (4.5-7.5) Urine Specific [place] 1.009 (1.000-1.030) Urine Protein NEG (NEG) Urine Glucose (UA) NEG (NEG) Urine Ketones NEG (NEG) Urine Occult Blood NEG (NEG) Urine Nitrite NEG (NEG) Urine Bilirubin NEG (NEG) Urine Urobilinogen NEG (NEG) Urine Leukocyte Esterase SMALL (NEG) Urine WBC (Auto) 1-5 /hpf (0-5) Urine RBC (Auto) 10-30 /hpf (0-4) Urine Hyaline Casts (Auto) 0 /lpf (0-5) Urine Epithelial Cells (Auto) 10-20 /lpf (0-5) Urine Bacteria (Auto) NEG (NEG) White Blood Count 5.79 K/uL (4.8-10.8) Red Blood Count 3.64 M/uL (4.2-5.4) Hemoglobin 11.6 g/dL (12.0-16.0) Hematocrit 35.3 % (37-47) Mean Corpuscular Volume 97.0 fL (80-100) Mean Corpuscular Hemoglobin 31.9 pg (25-34) Mean Corpuscular Hemoglobin Concent 32.9 g/dl (32-36) Platelet Count 316 K/uL (130-400) Mean Platelet Volume 9.2 fL (7.4-10.4) Neutrophils (%) (Auto) 64.5 % Lymphocytes (%) (Auto) 23.1 % Monocytes (%) (Auto) 9.3 % Eosinophils (%) (Auto) 2.6 % Basophils (%) (Auto) 0.5 % Neutrophils # (Auto) 3.73 K/uL (1.4-6.5) Lymphocytes # (Auto) 1.34 K/uL (1.2-3.4) Monocytes # (Auto) 0.54 K/uL (0.11-0.59) Eosinophils # (Auto) 0.15 K/uL (0-0.5) Basophils # (Auto) 0.03 K/uL (0-0.2) RDW Standard Deviation 45.5 fL (36.4-46.3) RDW Coefficient of Variation 12.9 % (11.5-14.5) Immature Granulocyte % (Auto) 0.0 % Immature Granulocyte # (Auto) 0.00 K/uL (0.00-0.02) Prothrombin Time 10.5 SECONDS (9.0-12.0) Prothromb Time International Ratio 1.0 (0.9-1.1) Activated Partial Thromboplast Time 28.6 SECONDS (21.0-31.0) Partial Thromboplastin Ratio 1.1 Anion Gap 4.0 mmol/L (3-11) Est Creatinine Clear Calc Drug Dose 40.0 ml/min Estimated GFR () 72.4 Estimated GFR (Non- 62.5 BUN/Creatinine Ratio 18.9 (10-20) Calcium Level 8.8 mg/dl (8.5-10.1) Continued [facility] stay due to: multiple IV medications needed, other (pain management) Discharge planning: home Resident Tracking Resident Involvement: Resident Care Provided Care Provided: Adult Hospital Medicine Reviewed: Pt Seen/Exam by Me History having severe back pain with spasms Constitutional: denies: fever Respiratory: negative: short of breath Cardiovascular: denies chest pain General Appearance: moderate distress (from back pain) Respiratory: lungs clear, no respiratory distress Cardiovascular: regular rate, rhythm Neurologic/Psychiatric: alert, oriented x 3 Skin Characteristics: warm/dry Assessment/Plan Resident Physician Supervision Note: I independently interviewed and examined the patient and verified the seo history and physical, reviewed labs and image studies, discussed the case with the resident Dr. Argueta and agree with the findings and care plan.
[2018-01-22] MEDS ORDERED: ATORVASTATIN 10 MG TAB PO SCH (21:00)
[2018-01-22] MEDS ORDERED: CALCITONIN SALMON NA 200 IU/AC 3.7 ML BTL SCH (21:00)
[2018-01-22] MEDS: CYCLOBENZAPRINE HCL 10 MG TAB PO SCH (21:03)
[2018-01-22 22:50] VITALS: BP 136/73; PULSE 86; TEMP 37; O2SAT 96
[2018-01-22] MEDS: TRAMADOL HCL 50 MG TAB PO PRN (23:40)
[2018-01-23] MEDS: ACETAMINOPHEN 500 MG TAB PO SCH (05:27)
[2018-01-23 07:10] VITALS: BP 153/65; PULSE 77; TEMP 36.9; O2SAT 96
[2018-01-23] MEDS: CLOBETASOL~ORDER AWAITING ACTION SCH (07:30)
[2018-01-23] MEDS: CYCLOBENZAPRINE HCL 10 MG TAB PO SCH (09:26)
[2018-01-23] MEDS: LIDODERM (LIDOCAINE) PATCH 5% TD SCH (09:26)
[2018-01-23] MEDS: METHENAMINE HIPPURATE 1 GM TAB PO SCH (09:26)
[2018-01-23] MEDS: TELMISARTAN 40 MG TAB PO SCH (09:26)
[2018-01-23] MEDS: LORATADINE 10 MG TAB PO SCH (09:27)
[2018-01-23] MEDS: CHOLECALCIFEROL 1000 INTER.UNIT TAB PO SCH (09:27)
[2018-01-23] MEDS: RANITIDINE HCL 150 MG TAB PO SCH (09:27)
[2018-01-23] MEDS: GABAPENTIN 300 MG CAP PO SCH (09:27)
[2018-01-23] MEDS: PENTOSAN POLYSULFATE SODIUM 100 MG CAP PO SCH (09:27)
[2018-01-23] MEDS: CALCIUM 600MG + VIT D 400 IU TAB PO SCH (09:27)
[2018-01-23] MEDS: HEPARIN SOD 5000 UNIT/0.5 ML CARP SQ SCH (09:38)
[2018-01-23] MEDS ORDERED: FLX10 PO (10:30)
[2018-01-23] MEDS ORDERED: ZNT150 PO (10:30)
--- NOTE | 2018-01-23 10:41 | Discharge Instructions ---
Discharge Instructions Date of Service January 23, 2018. Admission Reason for Admission: Back Pain, Compression Fx, Interstitial Cystitis Discharge Discharge Diagnosis / Problem: Compression fracture Discharge Goals Goal(s): Decrease discomfort, Improve function, Increase independence, Improve disease control, Learn about illness, Diagnostic testing Activity Recommendations Activity Limitations: as noted below Lifting Limitations: gradually increase as tolerated Exercise/Sports Limitations: gradually increase as tolerated May Resume Sexual Activity: when tolerated Shower/Bathe: no limitations . Instructions / Follow-Up Instructions / Follow-Up You were admitted due to severe back pain which was found to be progression of compression fractures, specifically at the level of T12 and L2. As you remember, your L1 vertebral body is already fractured due to osteoporosis. Flexeril tabs have helped the back spasms you were experiencing, and we have sent a script for this to your pharmacy. Regarding your osteoporosis - your primary physician may need to schedule an additional DEXA scan, and treat based on these results. Please continue all current medications -- with the exception of Prilosec -- this may decrease absorption of calcium which can worsen your osteoporosis. Please talk with your primary physician as to whether you should continue this. In the meantime , Ranitidine has been sent to your pharmacy instead. Regarding a brace for your back - we have reached out to the orthotics department here to see if there is a solution that would be better for you, and given that you have an ostomy bag. You can also reach out to him directly: Alphonso Mendez can be reached at [phone]. Be well A [place] Current Hospital Diet Patient's current hospital diet: Regular Diet Discharge Diet Recommended Diet: Regular Diet Pending Studies Studies pending at discharge: no Laboratory Results Hemoglobin A1c Test 01/20/18 09:36 Range/Units Estimated Average Glucose 114 mg/dl Hemoglobin A1c 5.6 4.5-5.6 % Lipid Panel Test 01/20/18 09:36 Range/Units Triglycerides Level 138 0-150 mg/dl Cholesterol Level 146 0-200 mg/dl HDL Cholesterol 37 mg/dl Cholesterol/HDL Ratio 3.9 LDL Cholesterol, Calculated 81 mg/dl Medical Emergencies . Who to Call and When: Medical Emergencies: If at any time you feel your situation is an emergency, please call 911 immediately. . Non-Emergent Contact Non-Emergency issues call your: Primary Care Provider . . "Provider Documentation" section prepared by Halina Argueta. .
[2018-01-23 12:32] VITALS: BP 153/65; PULSE 77; TEMP 36.9; O2SAT 96
[2018-01-23] MEDS: TRAMADOL HCL 50 MG TAB PO PRN (13:05)
--- NOTE | 2018-01-23 18:35 | Discharge Summary ---
Discharge Summary Date of Service January 23, 2018. Discharge Summary Admission Date: January 21, 2018 at 23:28 Discharge Date: January 23, 2018 Discharge Disposition: Home Principal Diagnosis: Acute compression fracture Problems/Secondary Diagnoses: Osteoporosis Colon cancer s/p colectomy with colostomy (Nov 2016) L1 compression fracture Hypertension interstitial cystitis Immunizations: Have You Had Influenza Vaccine: Yes Influenza Vaccine Date: Jul 30, 2012 History of Tetanus Vaccine?: Yes Tetanus Immunization Date: February 07, 2010 History of Pneumococcal: Yes Pneumococcal Date: Aug 23, 2010 History of Hepatitis B Vaccine: No Procedures: Lumbar spine XR FINDINGS: Again evident is a severe L1 compression fracture, slightly progressive when compared the preceding study. There is a new T12 compression fracture, and new L2 compression fracture. There is a right-sided ostomy. A small right pleural effusion is suspected. IMPRESSION: 1. Progressive severe L1 compression fracture 2. New T12 and L2 compression fractures 3. Severe osteopenia Medication Reconciliation New Medications: Cyclobenzaprine HCl (Cyclobenzaprine HCl) 10 Mg Tab 10 MG PO BID for 5 Days, #10 TAB Ranitidine HCl (Ranitidine HCl) 150 Mg Tab 150 MG PO BID for 30 Days, #60 TAB Continued Medications: Atorvastatin (Lipitor) 10 Mg Tab 10 MG PO HS, TAB Calcitonin ([place]) (Miacalcin) 200 Unit/Act Spr 1 SPRAY NA QPM Calcium Carbonate-Vitamin D W/ (Caltrate 600 Plus) 1 Tab Tab 1 TAB PO DAILY, TAB Calcium Glycerophosphate (Prelief) 1 Tab Tab 1 TAB PO DAILY PRN for acidy food Cefuroxime Axetil (Cefuroxime Axetil) 500 Mg Tab 500 MG PO BID Cholecalciferol (Vitamin D 1000 Unit) 1,000 Unit Cap 1000 INTER.UNIT PO DAILY, CAP Clobetasol Propionate (Clobetasol Propionate Cream 0.05%) 90 Appln/30 Gm Cr 1 APPLN EXT 2XWK Ferrous Sulfate (Kp Ferrous Sulfate) 325 Mg Tab 1 TAB PO DAILY Gabapentin (Gabapentin) 300 Mg Cap 300 MG PO TID Ibuprofen Tab (Advil) 200 Mg Tab 200 MG PO UD Lidocaine (Lidocaine) 1 Patch Tdsy 1 PATCH TD QAM for 7 Days Loratadine (Claritin) 10 Mg Tab 10 MG PO QAM, TAB Methenamine Hippurate (Methenamine Hippurate) 1 Gm Tab 1 TAB PO on hold Ondansetron Hcl (Zofran) 8 Mg Tab 8 MG PO Q8H PRN for Nausea Pentosan Polysulfate Sodium (Elmiron) 100 Mg Cap 100 MG PO BID, CAP Phenazopyridine HCl (Pyridium) 200 Mg Tab 200 MG PO TID PRN for PRN Pyridoxine (Vitamin B6) 100 Mg Tab 100 MG PO DAILY PRN for LEG CRAMPS, TAB Telmisartan (Micardis) 40 Mg Tab 40 MG PO QAM Tramadol (Ultram) 50 Mg Tab 50 MG PO Q6 PRN for Pain Discontinued Medications: Omeprazole (Prilosec) 20 Mg Cap 20 MG PO QAM, CAP Discharge Exam No acute events overnight per nursing. On morning of discharge Ms. Dean is sitting on the side of her bed eating breakfast and not in any visible pain. Patient's family was at bedside later in the day and we discussed the option of making an appointment with our orthotics department regarding a brace that could be fitted around her ostomy bag. Pt is eating and voiding well, pain is much better controlled after flexeril dosing. Pt only required 2 doses of morphine yesterday. ROS See HPI for pertinent positives and negatives. PHYSICAL EXAM GENERAL: Awake, alert, in moderate distress. Wincing. HENT: Normocephalic, atraumatic. EYES: Normal conjunctiva. Sclera non-icteric. NECK: Supple. FROM. RESPIRATORY: Clear to auscultation. CARDIAC: Regular rate, normal rhythm. Extremities warm and well perfused. Pulses equal. ABDOMEN: Soft, non-distended. No tenderness to palpation. No rebound or guarding. No masses. MSK: limited exam due to pt's level of pain LOWER EXTREMITIES: Calves are equal size bilaterally and non-tender. No edema. No discoloration. NEURO: No motor deficits noted. SKIN: No rash or jaundice noted. Hospital Course Ms. Dean first presented to the ED with constant lower back pain having started earlier that afternoon. She had tramadol at home that she tried to take but unfortunately vomited. Gabapentin did relieve her pain some but the pain persisted. In the ED Lumbar spine XR was done and revealed T12 and L2 fractures, as well as progressive L1 compression fracture and severe osteopenia. UA, CBC and BMP were all unremarkable. Roxicodone, fentanyl and one flexeril tab was administered to some relief. While here our main goals were to get pain under control. Patient did receive morphine, however what seemed to make the most significant impact was flexeril for her back spasms, particularly on her left side. Pt was also seen by orthopedic surgery but was not deemed a good surgical candidate given extent of her osteoporosis. Pt was sent home with 5 days worth of flexeril and also her omeprazole was discontinued here given the possibility of decreased calcium absorption in the setting of advanced osteopenia. A follow up DEXA scan is advised. Other chronic medications including calcitonin nasal sprays were continued. Regarding a back brace that could be fitted around her ostomy bag, a TSLO brace could be an option -- this was discussed with our orthotics department, and Alphonso Mendez's contact information was given to patient in her discharge instructions to be fitted should she decide. That number is [phone]. Ms. Dean is encouraged to reach out to Alphonso as soon as she likes, as this will greatly help her quality of life. It was a pleasure to participate in Ms. Dean's care. Moi Argueta Total Time Spent: Greater than 30 minutes This includes examination of the patient, discharge planning, medication reconciliation, and communication with other providers. Discharge Instructions Please refer to the electronic Patient Visit Report (Discharge Instructions) for additional information. Additional Copies To Filiberto Pendleton M.D. Resident Tracking Resident Involvement: Resident Care Provided Care Provided: Adult Hospital Medicine Reviewed: Pt Seen/Exam by Me History back pain much better controlled Constitutional: denies: fever Respiratory: negative: short of breath Cardiovascular: denies chest pain General Appearance: no apparent distress Respiratory: lungs clear, no respiratory distress Cardiovascular: regular rate, rhythm Neurologic/Psychiatric: alert, oriented x 3 Skin Characteristics: warm/dry Assessment/Plan Resident Physician Supervision Note: I independently interviewed and examined the patient and verified the seo history and physical, reviewed labs and image studies, discussed the case with the resident Dr. Argueta and agree with the findings and care plan. Time spent in discharge 35 min
== END 2018-01-23 13:21 | disposition home or self-care (01) ==
LOC: C.EDB 19:45 → C.MSN 23:28 → ENRESERV 23:38
PROVIDERS: ADMIT Student in an Organized Health Care Education/Training Program; ATTEND Family Medicine
DX: M48.54XA Collapsed vertebra, not elsewhere classified, thoracic region, initial encounter for fracture (principal); M48.56XA Collapsed vertebra, not elsewhere classified, lumbar region, initial encounter for fracture; I10 Essential (primary) hypertension; N30.10 Interstitial cystitis (chronic) without hematuria; Z85.038 Personal history of other malignant neoplasm of large intestine; Z98.890 Other specified postprocedural states; Z79.899 Other long term (current) drug therapy; Z93.3 Colostomy status; Z88.1 Allergy status to other antibiotic agents; Z88.2 Allergy status to sulfonamides; Z88.8 Allergy status to other drugs, medicaments and biological substances; Z80.9 Family history of malignant neoplasm, unspecified; Z82.49 Family history of ischemic heart disease and other diseases of the circulatory system

== ENCOUNTER 2018-04-11 10:19 | Emergency (ER) | payer OTHER ==
[~2018-04-11] VITALS: Ht 160 cm; Wt 57.4 kg
[~2018-04-11 10:19] MED LIST changes: -ATROPINE SULFATE 0.1 MG/ML 5ML SYR IV PRN; -BUPIVACAINE/EPINEPHRINE 0.5% MPF 1:200,000 30 ML VIAL ONE; -CLINDAMYCIN PHOS 150 MG/ML 2 ML VIAL IV SCH; -DEXAMETHASONE SOD INJ 4 MG/ML VIAL ONE; -EpHEDrine SULFATE INJ 50 MG/ML AMP IV PRN; -FENTANYL CITRATE INJ 50 MCG/1 ML 2 ML VIAL IV PRN; -FENTANYL CITRATE INJ 50 MCG/1 ML 2 ML VIAL ONE; -LACTATED RINGER'S 1000ML 1,000 ML IV SCH; -LIDOCAINE HCL 2% 2 ML VIAL (20MG/ML) ONE; -MIDAZOLAM HCL 1 MG/ML 2ML VIAL ONE; -ONDANSETRON INJ 2 MG/ML 2 ML VIAL IV PRN; -ONDANSETRON INJ 2 MG/ML 2 ML VIAL ONE; -PROPOFOL IV EMULSION 10 MG/ML 20 ML VIAL ONE; -[UNRECOGNIZED DRUG - REMARK] SCH
[2018-04-11 10:23] VITALS: TEMP 36.7; Ht 160 cm; Wt 57.4 kg
[2018-04-11] MEDS ORDERED: TELMISARTAN 40 MG TAB PO STA (10:45)
--- NOTE | 2018-04-11 10:52 | EMERGENCY ROOM VISIT NOTE ---
History Report prepared by Jeremy: Yolanda Saleem Under the Supervision of: Dr. Tabatha Tripp M.D. First contact with patient: 10:38 Chief Complaint: HYPERTENSION Stated Complaint: HIGH BLOOD PRESSURE, SENT OVER BY SURG CENTER History of Present Illness The patient is a 88 year old female who presents to the Emergency Room with complaints of an episode of high blood pressure beginning 1 hour ago. She reports she was seen in the surgical center this morning, where she had a high blood pressure reading and was referred to the ED. The patient notes she has been taking 80mg Micardis daily to treat HTN for years, and recently cut back to 40mg per day as she was becoming dizzy. She states her daughter called her PCP, Dr. Colon, who agreed to cutting her dosage back. The patient reports she took the 40mg Micardis 4.5 hours ago. She states she has not eaten or drank anything yet today. The patient denies headache, vision changes, CP, SOB. Source of History: patient Onset: 1 hour ago Position: chest Quality: other (elevated BP) Timing: other (episode) Associated Symptoms: No headache, No chest pain, No SOB Note: Denies vision changes Review of Systems See HPI for pertinent positives & negatives. A total of 10 systems reviewed and were otherwise negative. Past Medical & Surgical Medical Problems: (1) Colonic mass (2) DVT prophylaxis (3) Gait abnormality (4) Gram negative sepsis (5) HTN (hypertension) (6) Interstitial cystitis (7) Intra-abdominal fluid collection (8) Leukocytosis Surgical Problems: (1) Hx of cervical polypectomy Family History FHx: cancer Hypertension Social History Smoking Status: Never Smoker Alcohol Use: none Drug Use: none Marital Status: Housing Status: lives with significant other Occupation Status: retired Current/Historical Medications Scheduled Atorvastatin (Lipitor), 10 MG PO HS Calcium Carbonate-Vitamin D W/ (Caltrate 600 Plus), 1 TAB PO DAILY Cholecalciferol (Vitamin D 1000 Unit), 1,000 INTER.UNIT PO DAILY Ferrous Sulfate (Kp Ferrous Sulfate), 1 TAB PO DAILY Gabapentin (Gabapentin), 300 MG PO TID Lidocaine (Lidocaine), 1 PATCH TD QAM Loratadine (Claritin), 10 MG PO QAM Methenamine Hippurate (Methenamine Hippurate), 1 TAB PO on hold Omeprazole (Prilosec), 20 MG PO DAILY Pentosan Polysulfate Sodium (Elmiron), 100 MG PO BID Telmisartan (Micardis), 40 MG PO QAM Triamcinolone Acet (Triamcinolone Acetonide), 1 APPLN PV 2XWK Scheduled PRN Calcium Glycerophosphate (Prelief), 1 TAB PO DAILY PRN for acidy food Ondansetron Hcl (Zofran), 8 MG PO Q8H PRN for Nausea Phenazopyridine HCl (Pyridium), 200 MG PO TID PRN for PRN Pyridoxine (Vitamin B6), 100 MG PO DAILY PRN for LEG CRAMPS Tramadol (Ultram), 25 MG PO Q6 PRN for Pain Allergies Coded Allergies: Diltiazem (Verified Allergy, Severe, TIGHTENING OF THROAT, 04/11/18) Hydralazine (Verified Allergy, Intermediate, RASH, 04/11/18) Acetaminophen (Verified Allergy, Mild, ., 04/11/18) Azithromycin (Verified Allergy, Mild, PT UNSURE, 04/11/18) Nifedipine (Verified Allergy, Unknown, EXACERBATION INTERSTITIAL CYCSTITIS , 04/11/18) Nitrofurantoin (Verified Allergy, Unknown, RASH, 04/11/18) Quinine (Verified Allergy, Unknown, PT UNSURE, 04/11/18) Sulfa Antibiotics (Verified Allergy, Unknown, RASH, 04/11/18) Clindamycin (Unverified Adverse Reaction, Severe, CHEST PAIN/UPSET STOMACH , 04/11/18) Doxycycline (Unverified Adverse Reaction, Intermediate, LIGHT HEADED/ NAUSEA, 04/11/18) Quinolones (Verified Adverse Reaction, Intermediate, CIPRO- NAUSEA, NERVOUS, CHILLS, 04/11/18) Hydrocodone (Verified Adverse Reaction, Mild, GI UPSET, 04/09/18) Meperidine (Verified Adverse Reaction, Mild, GI UPSET, 04/11/18) Metronidazole (Verified Adverse Reaction, Mild, STOMACH PAIN, 04/11/18) Prochlorperazine (Verified Adverse Reaction, Mild, "BODY SHAKES", 04/11/18) Simvastatin (Verified Adverse Reaction, Mild, STOMACH PAIN, 04/11/18) Beta Adrenergic Blockers (Verified Adverse Reaction, Unknown, "Secondary AVB", 04/11/18) Ciprofloxacin (Verified Adverse Reaction, Unknown, GI SYMPTOMS, 04/11/18) Hydrochlorothiazide (Verified Adverse Reaction, Unknown, DYSURIA, 04/11/18) Lisinopril (Verified Adverse Reaction, Unknown, "INTOLERANCE" PER DR COLON, 04/11/18) Losartan (Verified Adverse Reaction, Unknown, JITTERY,SJAKEY, 04/11/18) Methenamine (Verified Adverse Reaction, Unknown, STOMACH PAIN, 04/11/18) Phenothiazines (Verified Adverse Reaction, Unknown, SHAKEY, 04/11/18) Spironolactone (Verified Adverse Reaction, Unknown, RECTAL PRESSURE, PAIN , 04/11/18) Terazosin (Verified Adverse Reaction, Unknown, LIGHTHEADEDNESS AND NAUSEA , 04/11/18) Valdecoxib (Verified Adverse Reaction, Unknown, GI SYMPTOMS, 04/11/18) Physical Exam Vital Signs Date Time Temp Pulse Resp B/P (MAP) Pulse Ox O2 Delivery O2 Flow Rate FiO2 04/11/18 13:37 72 16 195/69 98 Room Air 04/11/18 12:38 81 16 170/75 04/11/18 12:06 85 04/11/18 11:19 75 14 221/85 96 Room Air 04/11/18 10:49 238/79 04/11/18 10:23 36.7 84 18 189/82 98 Room Air Physical Exam Vital signs reviewed. General: Well-appearing elderly woman, in no significant distress. HEENT: No scleral icterus, PERRLA, neck supple. Atraumatic. Cardiovascular: Regular rate and rhythm, no extra sounds. Hypertensive. Pulmonary: Clear to auscultation bilaterally, normal work of breathing. Abdomen: Soft, nontender, nondistended, positive bowel sounds. Musculoskeletal: Atraumatic, no peripheral edema. Neurologic: Patient awake alert and oriented x 3, full strength in all 4 extremities. Cranial nerves 2 through 12 grossly intact. Skin: Warm, dry, no rash Medical Decision & Procedures Laboratory Results 04/11/18 11:05 Red Blood Count 4.07, Mean Corpuscular Volume 94.1, Mean Corpuscular Hemoglobin 30.0, Mean Corpuscular Hemoglobin Concent 31.9, Mean Platelet Volume 9.9, Neutrophils (%) (Auto) 57.1, Lymphocytes (%) (Auto) 29.8, Monocytes (%) (Auto) 6.7, Eosinophils (%) (Auto) 5.1, Basophils (%) (Auto) 1.1, Neutrophils # (Auto) 2.56, Lymphocytes # (Auto) 1.34, Monocytes # (Auto) 0.30, Eosinophils # (Auto) 0.23, Basophils # (Auto) 0.05 04/11/18 11:05 Test 04/11/18 11:05 White Blood Count 4.49 K/uL (4.8-10.8) Red Blood Count 4.07 M/uL (4.2-5.4) Hemoglobin 12.2 g/dL (12.0-16.0) Hematocrit 38.3 % (37-47) Mean Corpuscular Volume 94.1 fL (80-100) Mean Corpuscular Hemoglobin 30.0 pg (25-34) Mean Corpuscular Hemoglobin Concent 31.9 g/dl (32-36) Platelet Count 271 K/uL (130-400) Mean Platelet Volume 9.9 fL (7.4-10.4) Neutrophils (%) (Auto) 57.1 % Lymphocytes (%) (Auto) 29.8 % Monocytes (%) (Auto) 6.7 % Eosinophils (%) (Auto) 5.1 % Basophils (%) (Auto) 1.1 % Neutrophils # (Auto) 2.56 K/uL (1.4-6.5) Lymphocytes # (Auto) 1.34 K/uL (1.2-3.4) Monocytes # (Auto) 0.30 K/uL (0.11-0.59) Eosinophils # (Auto) 0.23 K/uL (0-0.5) Basophils # (Auto) 0.05 K/uL (0-0.2) RDW Standard Deviation 51.1 fL (36.4-46.3) RDW Coefficient of Variation 14.9 % (11.5-14.5) Immature Granulocyte % (Auto) 0.2 % Immature Granulocyte # (Auto) 0.01 K/uL (0.00-0.02) Anion Gap 5.0 mmol/L (3-11) Est Creatinine Clear Calc Drug Dose 28.8 ml/min Estimated GFR () 49.4 Estimated GFR (Non- 42.6 BUN/Creatinine Ratio 18.4 (10-20) Calcium Level 8.7 mg/dl (8.5-10.1) Magnesium Level 2.1 mg/dl (1.8-2.4) Total Bilirubin 0.5 mg/dl (0.2-1) Direct Bilirubin 0.1 mg/dl (0-0.2) Aspartate Amino Transf (AST/SGOT) 11 U/L (15-37) Alanine Aminotransferase (ALT/SGPT) 17 U/L (12-78) Alkaline Phosphatase 102 U/L (45-117) Total Protein 8.1 gm/dl (6.4-8.2) Albumin 3.4 gm/dl (3.4-5.0) Laboratory results per my review. Medications Administered Medications (Trade) Dose Ordered Sig/Aleksander Route Start Time Stop Time Status Last Admin Dose Admin Telmisartan (Micardis Tab) 40 mg NOW STAT PO 04/11/18 10:45 04/11/18 10:46 DC 04/11/18 11:14 40 MG ECG Per My Interpretation Indication: other (elevated BP) Rate (beats per minute): 73 Rhythm: normal sinus Findings: no acute ischemic change, other (previous septal infarct) ED Course 1041: Past medical records reviewed. The patient was evaluated in room A11B. A complete history and physical examination was performed. 1320: I reevaluated and updated the patient. 1345: Upon reevaluation, the patient appeared to have improvement of her symptoms. I discussed findings with her. She verbalized agreement of the treatment plan. The patient was discharged home. Medical Decision Differential diagnosis: Etiologies such as hypertensive urgency, dehydration, hypovolemia, anemia, tumor , infection, hypoglycemia, electrolyte abnormalities, cardiac sources, intracerebral event, toxicologic, neurologic, as well as others were entertained. This patient was evaluated and appeared to be in no significant distress. Physical examination is fairly unrevealing. The patient was given 40 mg of Micardis, she had taken 40 mg earlier in the day. Laboratory work is fairly unrevealing. EKG reveals no evidence of acute ischemic change. Patient was asymptomatic and tolerating a lunch tray. She was advised to go back to her original prescription of 80 mg of Micardis daily. She has multiple allergies as listed above. She will be reevaluated by her PCP for blood pressure recheck and further management. Patient will return to the ED for worsening of symptoms or any medical concerns. Medication Reconcilliation Current Medication List: was personally reviewed by me Blood Pressure Screening Patient's blood pressure: Elevated blood pressure Blood pressure disposition: Referred to PCP Impression Primary Impression: Hypertension Scribe Attestation The scribe's documentation has been prepared under my direction and personally reviewed by me in its entirety. I confirm that the note above accurately reflects all work, treatment, procedures, and medical decision making performed by me. 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 Low-sodium diet. Follow-up with your PCP next week for recheck of her blood pressure and continued management. Return to the ED for worsening of symptoms or any medical concerns.
[2018-04-11 11:22] LABS: BASO % 1.1 %; BASO ABS # 0.05 K/uL (0-0.2); EOS % 5.1 %; EOS ABS # 0.23 K/uL (0-0.5); HEMATOCRIT 38.3 % (37-47); HEMOGLOBIN 12.2 g/dL (12.0-16.0); IG# 0.01 K/uL (0.00-0.02); LYMPH % 29.8 %; LYMPH ABS # 1.34 K/uL (1.2-3.4); MEAN CELL VOLUME 94.1 fL (80-100); MEAN CORPUSCULAR HGB CONC 31.9 g/dl (32-36); MEAN PLATELET VOLUME 9.9 fL (7.4-10.4); MONO % 6.7 %; NEUT % 57.1 %; NEUT ABS # 2.56 K/uL (1.4-6.5); PLATELET COUNT 271 K/uL (130-400); RED CELL DISTRIBUTION WIDTH CV 14.9 % (11.5-14.5); RED CELL DISTRIBUTION WIDTH SD 51.1 fL (36.4-46.3); WHITE BLOOD COUNT 4.49 K/uL (4.8-10.8)
[2018-04-11 11:44] LABS: ALBUMIN 3.4 gm/dl (3.4-5.0); CALCIUM 8.7 mg/dl (8.5-10.1); CREATININE 1.16 mg/dl (0.60-1.20); POTASSIUM 4.2 mmol/L (3.5-5.1); TOTAL PROTEIN 8.1 gm/dl (6.4-8.2)
[2018-04-11 13:37] VITALS: BP 195/69; PULSE 72; O2SAT 98
== END 2018-04-11 14:01 | disposition home or self-care (01) ==
LOC: C.EDB 10:21 → C.EDA 14:01
DX: I10 Essential (primary) hypertension (principal); Z79.899 Other long term (current) drug therapy; Z88.1 Allergy status to other antibiotic agents; Z88.2 Allergy status to sulfonamides; Z88.6 Allergy status to analgesic agent; Z88.8 Allergy status to other drugs, medicaments and biological substances

== ENCOUNTER → 2018-04-11 | Day surgery (SDC) | payer OTHER ==
[2018-04-09 09:30] VITALS: Ht 160 cm; Wt 59.1 kg
[~2018-04-11] VITALS: Ht 160 cm; Wt 59.1 kg
[~2018-04-11] MED LIST changes: +ATROPINE SULFATE 0.1 MG/ML 5ML SYR IV PRN; +BUPIVACAINE/EPINEPHRINE 0.5% MPF 1:200,000 30 ML VIAL ONE; +CALC-44 PO; +CHOL100027 PO; -CLBCRM30 EXT; +CLINDAMYCIN PHOS 150 MG/ML 2 ML VIAL IV SCH; +DEXAMETHASONE SOD INJ 4 MG/ML VIAL ONE; +EpHEDrine SULFATE INJ 50 MG/ML AMP IV PRN; +FENTANYL CITRATE INJ 50 MCG/1 ML 2 ML VIAL IV PRN; +FENTANYL CITRATE INJ 50 MCG/1 ML 2 ML VIAL ONE; -FLUT1INH INH; -GABA-113 PO; +GABA-1219 PO; -IBUP-103 PO; +LACTATED RINGER'S 1000ML 1,000 ML IV SCH; +LIDOCAINE HCL 2% 2 ML VIAL (20MG/ML) ONE; -MCLIN; +MIDAZOLAM HCL 1 MG/ML 2ML VIAL ONE; -OMEP20CA9 PO; +ONDANSETRON INJ 2 MG/ML 2 ML VIAL IV PRN; +ONDANSETRON INJ 2 MG/ML 2 ML VIAL ONE; +PRLSR20 PO; +PROPOFOL IV EMULSION 10 MG/ML 20 ML VIAL ONE; +TRMCR515 PV; -VTMD1000 PO; +[UNRECOGNIZED DRUG - REMARK] SCH
--- NOTE | 2018-04-11 08:37 | Discharge Instructions-SurgCtr ---
Discharge Instructions Date of Service Apr 11, 2018. Visit Reason for Visit: Adenocarcinoma Colon; Port Catheter In Place Discharge Discharge Diagnosis / Problem: colon cancer/finished with mediport Discharge Goals Goal(s): Specific goals (remove mediport) Activity Recommendations Activity Limitations: resume your previous activity Anesthesia . Post Anesthesia Instructions: If you have had General Anesthesia or IV Sedation: * Do not drive today. * Resume driving when surgeon permits. * Do not make important decisions or sign legal documents today. * Call surgeon for: 1. Temperature elevations greater than 101 degrees F. 2. Uncontrollable pain. 3. Excessive bleeding. 4. Persistent nausea and vomiting. 5. Medication intolerance (nausea, vomiting or rash). * For nausea and vomiting use only clear liquids such as: tea, soda, bouillon until nausea subsides, then gradually increase diet as tolerated. * If you have any concerns or questions, call your surgeon's office. If physician is unavailable and it is an emergency, call 911 or go to the nearest emergency room. . Instructions / Follow-Up Instructions / Follow-Up pt to go directly from surgery center to ER for management of her hypertension. Diet Recommendations Home Diet: resume previous diet Procedures Procedures Performed: removal mediport Pending Studies Studies pending at discharge: no Medical Emergencies . Who to Call and When: Medical Emergencies: If at any time you feel your situation is an emergency, please call 911 immediately. . Non-Emergent Contact Non-Emergency issues call your: Primary Care Provider, Surgeon . . "Provider Documentation" section prepared by Andrey Lomax. .
[2018-04-11 09:28] VITALS: BP 225/84; PULSE 83; TEMP 36.8; O2SAT 97
--- NOTE | 2018-04-11 09:41 | History & Physical Bridge Note ---
H&P Re-Evaluation Bridge Note: I have examined the patient, reviewed the History & Physical and in the interval since the performance of the History & Physical I have noted the following changes of clinical significance: No changes noted pt had recently had her blood pressure medicine changed. BP today >220 systolic after multiple checks. Recommended by anesthesia to cancel procedure and send patient to the ER for treatment. will reschedule after BP controlled. pt agreeable to plan
--- NOTE | 2018-04-11 10:06 | Anesthesiology Progress Note ---
Anesthesia Progress Note Date of Service Apr 11, 2018. Progress Notes The patient is an 88F scheduled for an infusaport removal. Upon admission, it was noted that the patient's blood pressure was 220-230/80-90. The patient denies CP, SOB, or VINCENT. The patient stated recently having her blood pressure medications altered. She did take her telmisartan this morning. I spoke with the patient and Dr. Lomax, and we agreed to postpone the procedure until the patient's blood pressure was better controlled. I spoke to the [facility] ED and gave report of the patient's status. The patient was instructed to go directly to the [facility] ED upon discharge of the surgery center, and she was understanding.
== END | disposition home or self-care (01) ==
LOC: X.SURG 08:37
PROVIDERS: ATTEND Surgery
DX: C18.9 Malignant neoplasm of colon, unspecified (principal); Z53.09 Procedure and treatment not carried out because of other contraindication

== ENCOUNTER → 2018-04-15 | Outpatient (CLI) | payer OTHER ==
[~2018-04-15] MED LIST changes: +AMLO10TA3 PO; +CLBPO15 TOP; +CYCL10TA6 PO; +FLUT1INH INH; +KETO0.0216 OP; +TELM1TAB8 PO
== END | disposition home or self-care (01) ==
LOC: C.LABBFT 12:05
PROVIDERS: ATTEND Internal Medicine
DX: E55.9 Vitamin D deficiency, unspecified (principal)

== ENCOUNTER → 2018-04-22 | Day surgery (SDC) | payer OTHER ==
[2018-04-21 11:55] VITALS: BMI 23.0
[~2018-04-22] VITALS: Ht 160 cm; Wt 59.1 kg
[~2018-04-22] MED LIST changes: +ATROPINE SULFATE 0.1 MG/ML 5ML SYR IV PRN; +BUPIVACAINE/EPINEPHRINE 0.5% MPF 1:200,000 30 ML VIAL ONE; +EpHEDrine SULFATE INJ 50 MG/ML AMP IV PRN; +FENTANYL CITRATE INJ 50 MCG/1 ML 2 ML VIAL IV PRN; +FENTANYL CITRATE INJ 50 MCG/1 ML 2 ML VIAL ONE; +LACTATED RINGER'S 1000ML 1,000 ML IV SCH; +LIDOCAINE HCL 2% 2 ML VIAL (20MG/ML) ONE; +ONDANSETRON INJ 2 MG/ML 2 ML VIAL IV PRN; +PROPOFOL IV EMULSION 10 MG/ML 20 ML VIAL ONE; +SODIUM CHLORIDE 0.9% 1000ML 1,000 ML IV SCH
[2018-04-22 09:47] VITALS: BP_SYST 191; BP_SYST 202; BP_DIAS 80; BP_DIAS 82; PULSE 98; TEMP 36.9; O2SAT 98; Ht 160 cm; Wt 59.1 kg
--- NOTE | 2018-04-22 11:03 | History & Physical Bridge Note ---
H&P Re-Evaluation Bridge Note: I have examined the patient, reviewed the History & Physical and in the interval since the performance of the History & Physical I have noted the following changes of clinical significance: No changes noted. rediscussed risks of procedure. will proceed with mediport removal.
--- NOTE | 2018-04-22 11:07 | Discharge Instructions ---
Discharge Instructions Date of Service Apr 22, 2018. 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 Instructions / Follow-Up Instructions / Follow-Up call [phone] with any questions or concerns Current Hospital Diet Patient's current hospital diet: Discharge Diet Recommended Diet: Regular Diet Pending Studies Studies pending at discharge: no Laboratory Results Hemoglobin A1c Test 01/20/18 09:36 Range/Units Estimated Average Glucose 114 mg/dl Hemoglobin A1c 5.6 4.5-5.6 % Lipid Panel Test 01/20/18 09:36 Range/Units Triglycerides Level 138 0-150 mg/dl Cholesterol Level 146 0-200 mg/dl HDL Cholesterol 37 mg/dl Cholesterol/HDL Ratio 3.9 LDL Cholesterol, Calculated 81 mg/dl Medical Emergencies . Who to Call and When: Medical Emergencies: If at any time you feel your situation is an emergency, please call 911 immediately. . Non-Emergent Contact Non-Emergency issues call your: Primary Care Provider, Surgeon Call Non-Emergent contact if: temperature is above 101, wound has increased drainage, wound has increased redness, wound has increased pain . "Provider Documentation" section prepared by Andrey Lomax. .
[2018-04-22 11:55] VITALS: BP 146/49; PULSE 100; TEMP 36.5; O2SAT 99
--- NOTE | 2018-04-22 11:56 | [facility] Post Operative Brief Note ---
Immediate Operative Summary Operative Date Apr 22, 2018. 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 Explanted Mediport Anesthesia Type MAC
--- NOTE | 2018-04-22 11:58 | [facility] Operative Report ---
Operative Report Operative Date Apr 22, 2018. Pre-Operative Diagnosis Desire for mediport removal Post-Operative Diagnosis Desire for mediport removal Procedure(s) Performed Removal of mediport Surgeon Dr Lomax [employer] Crew[employer] Surgeon(s) None Estimated Blood Loss 2cc Specimens As Per Surgeon A. Explanted Mediport Anesthesia Type MAC Complication(s) none Description of Procedure After informed consent was obtained the patient was taken the operating room placed in supine position with left arm extended. IV sedation was administered by anesthesia. The left upper chest wall was sterilely prepped and draped in usual fashion. I began by infiltrating the area around the port with Marcaine. Once I created a skin wheal I made a small incision through her old scar with a 15 blade scalpel. Electrocautery was used to carry this down through the soft tissue until we encountered the port itself. I took down the capsule around the port using cautery. There was 3 point fixation used with 0 Ethibond and I removed each of these using sharp scissor lysis. Once I had everything freed up the port itself easily was withdrawn during end inspiration. Pressure was held for several minutes. There is adequate hemostasis at the end of the case. Wound was thoroughly irrigated and closed with 3-0 Vicryl for deep layers and 4-0 Monocryl for skin. Dermabond glue was used as a dressing. The patient was awakened and transferred recovery in stable condition. I attest to the content of the Intraoperative Record and any orders documented therein. Any exceptions are noted below.
[2018-04-22 12:25] VITALS: BP 146/49; PULSE 100; TEMP 36.4; O2SAT 100
--- NOTE | 2018-04-22 12:54 | Anesthesiology Progress Note ---
Anesthesia Post Op Note Date & Time Apr 22, 2018 at 12:53 Vital Signs Pain Intensity: 0 Vital Signs Past 12 Hours Date Time Temp Pulse Resp B/P (MAP) Pulse Ox O2 Delivery O2 Flow Rate FiO2 04/22/18 12:25 36.4 100 20 146/49 100 Room Air 04/22/18 11:55 36.5 100 20 146/49 99 Room Air 04/22/18 09:47 36.9 98 20 191/82 (118) 98 Room Air Notes Mental Status: alert / awake / arousable, participated in evaluation Nausea / Vomiting: adequately controlled Pain: adequately controlled Airway Patency, RR, SpO2: stable & adequate BP & HR: stable & adequate Hydration State: stable & adequate Anesthetic Complications: no major complications apparent
== END | disposition home or self-care (01) ==
LOC: C.ACU 08:58
PROVIDERS: ATTEND Surgery
DX: Z45.2 Encounter for adjustment and management of vascular access device (principal); C18.9 Malignant neoplasm of colon, unspecified; I10 Essential (primary) hypertension; J84.10 Pulmonary fibrosis, unspecified; K21.9 Gastro-esophageal reflux disease without esophagitis; I44.1 Atrioventricular block, second degree; I35.1 Nonrheumatic aortic (valve) insufficiency; M19.90 Unspecified osteoarthritis, unspecified site; K44.9 Diaphragmatic hernia without obstruction or gangrene; M81.0 Age-related osteoporosis without current pathological fracture; Z90.49 Acquired absence of other specified parts of digestive tract

== ENCOUNTER → 2018-05-06 | Outpatient (CLI) | payer OTHER ==
[~2018-05-06] MED LIST changes: -ATROPINE SULFATE 0.1 MG/ML 5ML SYR IV PRN; -BUPIVACAINE/EPINEPHRINE 0.5% MPF 1:200,000 30 ML VIAL ONE; -EpHEDrine SULFATE INJ 50 MG/ML AMP IV PRN; -FENTANYL CITRATE INJ 50 MCG/1 ML 2 ML VIAL IV PRN; -FENTANYL CITRATE INJ 50 MCG/1 ML 2 ML VIAL ONE; -LACTATED RINGER'S 1000ML 1,000 ML IV SCH; -LIDOCAINE HCL 2% 2 ML VIAL (20MG/ML) ONE; -ONDA-170 PO; -ONDANSETRON INJ 2 MG/ML 2 ML VIAL IV PRN; -PROPOFOL IV EMULSION 10 MG/ML 20 ML VIAL ONE; -SODIUM CHLORIDE 0.9% 1000ML 1,000 ML IV SCH; -TELM40TA PO; -TRMCR515 PV
== END | disposition home or self-care (01) ==
LOC: C.LAB1850 14:20
PROVIDERS: ATTEND Internal Medicine Rheumatology
DX: K21.9 Gastro-esophageal reflux disease without esophagitis (principal); M80.00XA Age-related osteoporosis with current pathological fracture, unspecified site, initial encounter for fracture

== ENCOUNTER 2018-11-27 08:53 | Inpatient (IN) ==
--- NOTE | 2018-11-11 16:42 | PAT Medication Instructions ---
Medication Instructions Date of Service November 11, 2018 Home Medications acetaminophen [Acetaminophen] 500 mg PO TID PRN atorvastatin 10 mg PO HS cholecalciferol (vitamin D3) 3 tab PO QAM clobetasol 1 applic TOPICAL 2XWK gabapentin 300 mg PO BID loratadine [Claritin] 10 mg PO QAM methenamine hippurate 1 g PO HS omeprazole 20 mg PO QAM phenazopyridine [Pyridium] 200 mg PO TID PRN telmisartan 80 mg PO QAM timolol maleate 1 drp OPHTHALMIC (EYE) BID tramadol 25 mg PO BID PRN STOP taking 24 hours before surgery clobetasol 1 applic TOPICAL 2XWK DO NOT take the morning of surgery cholecalciferol (vitamin D3) 3 tab PO QAM loratadine [Claritin] 10 mg PO QAM phenazopyridine [Pyridium] 200 mg PO TID PRN telmisartan 80 mg PO QAM Take morning of surgery With a small sip of water, OTHERWISE NOTHING TO EAT OR DRINK AFTER MIDNIGHT: acetaminophen [Acetaminophen] 500 mg PO TID PRN (if needed, may be taken up to four hours before surgery) gabapentin 300 mg PO BID omeprazole 20 mg PO QAM timolol maleate 1 drp OPHTHALMIC (EYE) BID (Bring with you to the hospital) tramadol 25 mg PO BID PRN (if needed, may be taken up to four hours before surgery) Take evening before surgery atorvastatin 10 mg PO HS acetaminophen [Acetaminophen] 500 mg PO TID PRN (if needed) methenamine hippurate 1 g PO HS phenazopyridine [Pyridium] 200 mg PO TID PRN (if needed) gabapentin 300 mg PO BID omeprazole 20 mg PO QAM timolol maleate 1 drp OPHTHALMIC (EYE) BID tramadol 25 mg PO BID PRN (if needed) Other Notes If you have any questions please call us at [phone] or [phone] or [phone] or [phone]
--- NOTE | 2018-11-12 14:16 | Anesthesiology Consultation ---
Date of Service November 12, 2018 Assessment & Plan (1) Encounter for pre-operative examination: PCP 11/24/2018: "Given the patient's recent PET/CT scan highly suggestive of neoplasm and an increasing CEA level I agree with plans for sigmoidectomy. When the patient was last seen in August 2018 she had no cardiopulmonary symptoms at that time. Assuming the patient is still stable I believe she is an acceptable surgical risk for the procedure given the studies suggest a possible malignancy in the region of her sigmoid colon." *pt had no CP complaints at [facility]. PT HAS H/O MULTIPLE COMPRESSION FRACTURES AT T12, L1 AND L2 (PER IMAGING 06/2018). CAUTION WITH POSITIONING Chart Review Chart Review: Acceptable Risk for Surgery and Patient seen in Pre Admission Testing Teaching & Discussion Instructed NPO after midnight before surgery, except medications with 15 cc of water. Medication instructions provided according to the [facility] guidelines. History Surgery Operation Date: 11/27/18 11:45 Proposed Procedures p Open Sigmoidectomy - Andrey Lomax, Height/Weight Height: 5 ft 3 in Weight: 61.3 kg Allergies Allergy/AdvReac Type Severity Reaction Status Date / Time diltiazem Allergy Unknown TIGHTENING Verified 11/05/18 11:55 OF THROAT erythromycin base Allergy Unknown PT UNSURE Verified 11/05/18 11:55 hydralazine Allergy Unknown dysuria Verified 11/05/18 11:55 mivacurium Allergy Unknown PT UNSURE Verified 11/05/18 11:55 nifedipine Allergy Unknown EXACERBATION Verified 11/05/18 11:55 INTERSTITIAL CYCSTITIS nitrofurantoin Allergy Unknown RASH Verified 11/05/18 11:55 quinine Allergy Unknown PT UNSURE Verified 11/05/18 11:55 Sulfa (Sulfonamide Allergy Unknown RASH Verified 11/05/18 11:55 Antibiotics) Beta-Blockers AdvReac Unknown "Secondary Verified 11/05/18 11:55 (Beta-Adrenergic Bloc AVB" Cipro AdvReac Unknown GI SYMPTOMS Verified 04/22/18 09:21 ciprofloxacin AdvReac Unknown GI SYMPTOMS Verified 11/05/18 11:55 clindamycin AdvReac Unknown CHEST Verified 11/05/18 11:55 PAIN/UPSET STOMACH hydrochlorothiazide AdvReac Unknown Rash Verified 11/05/18 11:55 hydrocodone AdvReac Unknown GI UPSET Verified 11/05/18 11:55 lisinopril AdvReac Unknown "INTOLERANCE" Verified 11/05/18 11:[address] COLON losartan AdvReac Unknown JITTERY,SHA Verified 11/05/18 11:55 DOHERTY meperidine AdvReac Unknown GI UPSET Verified 11/05/18 11:55 methenamine AdvReac Unknown HX STOMACH Verified 11/05/18 11:55 PAIN- SEE NOTES metronidazole AdvReac Unknown STOMACH Verified 11/05/18 11:55 PAIN Phenothiazines AdvReac Unknown SHAKEY Verified 11/05/18 11:55 prochlorperazine AdvReac Unknown "BODY Verified 11/05/18 11:55 SHAKES" Quinolones AdvReac Unknown CIPRO- Verified 11/05/18 11:55 NAUSEA, NERVOUS, CHILLS simvastatin AdvReac Unknown STOMACH Verified 11/05/18 11:55 PAIN spironolactone AdvReac Unknown RECTAL Verified 11/05/18 11:55 PRESSURE, PAIN terazosin AdvReac Unknown LIGHTHEADEDNESS Verified 11/05/18 11:55 AND NAUSEA valdecoxib AdvReac Unknown GI SYMPTOMS Verified 11/05/18 11:55 Medications Home Medications Medication Instructions Recorded Confirmed Last Taken acetaminophen [Acetaminophen Extra 500 mg PO TID PRN 07/28/18 10/14/18 10/14/18 08:00 Strength] atorvastatin 10 mg PO HS 07/28/18 10/14/18 11/04/18 cholecalciferol (vitamin D3) 3 tab PO QAM 07/28/18 10/14/18 11/05/18 [Vitamin D3] clobetasol 1 applic TOPICAL 2XWK 07/28/18 10/14/18 10/13/18 gabapentin 300 mg PO BID 07/28/18 10/14/18 11/05/18 loratadine [Claritin] 10 mg PO QAM 07/28/18 10/14/18 11/05/18 methenamine hippurate 1 g PO HS 07/28/18 10/14/18 11/04/18 omeprazole 20 mg PO QAM 07/28/18 10/14/18 11/05/18 phenazopyridine [Pyridium] 200 mg PO TID PRN 07/28/18 10/14/18 05/26/18 telmisartan 80 mg PO QAM 07/28/18 10/14/1811/05/19 timolol maleate 1 drp OPHTHALMIC (EYE) BID 07/28/18 10/14/18 10/14/18 tramadol 25 mg PO BID PRN 07/28/18 10/14/18 10/14/18 07:00 Past Medical History Medical History Cardiac murmur No significant valve disease per 2017 echo Carotid artery stenosis Carotid Doppler 07/23/2016 showed 50-69% stenosis bilateral internal carotid arteries. Per PCP 08/26/18 "Continue with current treatment. Previously had plan to repeat carotid Doppler for re-evaluation. Given the patient's advanced age and other problems though we decided not to pursue further carotid Doppler screening at least at this time." Colon cancer 2016--sx, chemo Colostomy in place REPORTS "FISSURE LEFT SIDE OF ABDOMEN" Elevated CEA GERD (gastroesophageal reflux disease) Glaucoma History of vertebral fracture PER 06/2018 XRAY: "There is a new superior endplate L4 compression fracture. There is an old L2 compression fracture. There are severe T12 and L1 compression fractures. The bones are osteopenic. There are multilevel degenerative changes." Hyperlipidemia Hypertension ILD (interstitial lung disease) No SOB with stairs Interstitial cystitis MRSA nasal colonization Osteoarthritis Skin cancer Vertigo Past Family History Family History Daughter Family history of breast cancer Other No family history of adverse response to anesthesia Past Surgical History Surgical History H/O exploratory laparotomy 2016. status post open transverse colectomy with primary anastomosis, omentectomy, excision or biopsy of left liver lesion performed by Dr. Lomax 12/13/2016. Unfortunately postoperatively she developed intra- abdominal abscesses requiring re-exploration of her abdomen, washout of the abscesses, takedown of the primary anastomosis and creation of a colostomy and mucous fistula. History of bilateral cataract extraction History of bowel resection 2015 for colon cancer--colostomy History of cervical polypectomy History of colonoscopy History of tooth extraction all teeth removed Past Anesthesia History No Hx of Anesthesia Complications and No Family Hx of Anesthesia Complications History of PONV No Motion Sickness Screening History of Motion Sickness: Yes Social History Smoking Status: Never smoker Do You Dip or Chew Tobacco: No Hx Alcohol Use: No Hx Substance Use: No substance use type: does not use Exercise / Class Metabolic Activity II 4-5 Yardwork/Stairs/Walk up hill (Denies SOB and CP with stairs, has full flight at home) Review of Systems Pt denies any recent chest pain, shortness of breath, palpitations, cough, fever or URI. Physical Exam Vital Signs BP: 158/72 (pt and daughter report normal BP at home, always elevated in medical settings) P: 67bpm SPO2: 97% RA T: 98.1 F R: 16 ENMT Mouth: + dentures, + edentulous and + small oral opening Thyromental Distance: > or= 3.5 Finger Breadths (3.5) Mallampati Class: III Neck normal visual inspection and + limited neck extension Respiratory normal respiratory effort Auscultation: + crackles (Inspiratory, B/L bases); no rales, no rhonchi and no wheezes Cardiovascular Rate/Rhythm: regular rate and regular rhythm Heart Sounds: no murmur Vessels: + carotid bruit (soft, R>L) Extremities: no edema Testing Electrocardiogram Date: 11/12/18 Findings: + NSR @ (61) Compared with EKG of 04/11/2018, PACs are no longer present. Nonspecific T wave abnormality no longer evident in anterior leads. Echocardiogram Date: 12/18/16 EF: 60-65% -- Conclusions -- Left ventricular systolic function is normal. No regional wall motion abnormalities noted. Ejection Fraction = 60-65%. There is moderate concentric left ventricular hypertrophy. Diastolic dysfunction, Grade II (pseudonormalization pattern). No significant valvular pathology. Other Testing CT Chest 07/18/18 1. No convincing evidence for metastatic disease within the chest. 2. Right lower hemithorax pleural thickening which was shown on exam November 16, 2017. This finding is nonspecific. Metastatic disease is within the differential although considered unlikely. A follow-up chest CT in 6 months to ensure stability is recommended. 3. Basilar and peripheral predominant reticulation with honeycombing consistent with a UIP pattern of pulmonary fibrosis. Carotid Duplex 07/23/16 1. 50-69% stenosis bilateral internal carotid arteries. 2. Greater than 50% stenosis in the ECAs bilaterally. 3. Antegrade flow in the vertebral arteries bilaterally. 4. No significant change since examined 06/2015. Laboratory Results 11/12/18 14:02 11/12/18 14:02 Blood Type A Positive 11/12/18 14:02 Antibody Screen NEGATIVE 11/12/18 14:02
[2018-11-12 14:25] LABS: Basophils # (auto) 0.02 K/uL (0-0.2); Basophils % (auto) 0.4 %; Eosinophils # (auto) 0.18 K/uL (0-0.5); Eosinophils % (auto) 3.9 %; Hematocrit (blood only) 33.4 % (37-47); Hemoglobin 10.4 g/dL (12.0-16.0); Lymphocytes # (auto) 1.33 K/uL (1.2-3.4); Lymphocytes % (auto) 28.5 %; Mean Corpuscular Hgb Conc 31.1 g/dL (32-36); Mean Corpuscular Volume 95.4 fL (80-100); Mean Platelet Volume 9.8 fL (7.4-10.4); Monocytes % (auto) 8.6 %; Neutrophils # (auto) 2.74 K/uL (1.4-6.5); Neutrophils % (auto) 58.6 %; Platelet Count 248 K/uL (130-400); RDW Coefficient of Variation 13.9 % (11.5-14.5); RDW Standard Deviation 48.2 fL (36.4-46.3); White Blood Count 4.67 K/uL (4.8-10.8)
[2018-11-12 14:33] LABS: BUN Creatinine Ratio 16.7 (10-20); Calcium 8.3 mg/dl (8.5-10.1); Creatinine Clr Calc Pharmacy 25.5 ml/min; Est GFR (African American) 42.6; Est GFR (Non-African American) 36.8; Potassium 4.5 mmol/L (3.5-5.1)
--- NOTE | 2018-11-27 09:57 | History & Physical Report ---
Date of Service November 27, 2018 Assessment & Plan (1) Colonic mass: After much discussion as well as discussing risks (E bleeding, infection, staple line leak, injury to another organ such as ureter or bowel, DVT, PE, KS, CVA, etc.) we have decided to proceed with resection of the remaining sigmoid colon which of course would have this mass in it. We would also be able to permanently get rid of her mucous fistula which has been a bother to her. I answered all of her questions. She agrees with the plan. We will be performing this in an open fashion. History of Present Illness Primary Care Provider: Filiberto Colon MD Kadie is well-known to me as I had done her previous colectomy for adenocarcinoma. During her postoperative course she developed some elevated CEA levels followed by an abnormal CT scan. I performed a colonoscopy in her distal remaining sigmoid colon and found some abnormalities. There is also an abnormal PET scan in this area while the biopsies did not show true adenocarcinoma I do believe that what I visualized has underlying adenocarcinoma or at least severe dysplasia within it. We discussed her options and have decided to resect that region of colon. She has a permanent diverting proximal stoma so we will simply need to excise the remaining sigmoid colon and will not require a new anastomosis. Allergies Allergy/AdvReac Type Severity Reaction Status Date / Time diltiazem Allergy Unknown TIGHTENING Verified 11/27/18 09:39 OF THROAT erythromycin base Allergy Unknown PT UNSURE Verified 11/27/18 09:39 hydralazine Allergy Unknown dysuria Verified 11/27/18 09:39 mivacurium Allergy Unknown PT UNSURE Verified 11/27/18 09:39 nifedipine Allergy Unknown EXACERBATION Verified 11/27/18 09:39 INTERSTITIAL CYCSTITIS nitrofurantoin Allergy Unknown RASH Verified 11/27/18 09:39 quinine Allergy Unknown PT UNSURE Verified 11/27/18 09:39 Sulfa (Sulfonamide Allergy Unknown RASH Verified 11/27/18 09:39 Antibiotics) azithromycin [From Zithromax] AdvReac Intermediate Rash Verified 11/27/18 09:39 bexarotene AdvReac Intermediate n/v Verified 11/27/18 09:39 Beta-Blockers AdvReac Mild "Secondary Verified 11/27/18 09:39 (Beta-Adrenergic Bloc AVB" Cipro AdvReac Unknown GI SYMPTOMS Verified 04/22/18 09:21 ciprofloxacin AdvReac Unknown GI SYMPTOMS Verified 11/27/18 09:39 hydrochlorothiazide AdvReac Unknown Rash Verified 11/27/18 09:39 hydrocodone AdvReac Unknown GI UPSET Verified 11/27/18 09:39 lisinopril AdvReac Unknown "INTOLERANCE" Verified 11/27/18 09:[address] COLON losartan AdvReac Unknown JITTERY,SHA Verified 11/27/18 09:39 DOHERTY meperidine AdvReac Unknown GI UPSET Verified 11/27/18 09:39 methenamine AdvReac Unknown HX STOMACH Verified 11/27/18 09:39 PAIN- SEE NOTES metronidazole AdvReac Unknown STOMACH Verified 11/27/18 09:39 PAIN Phenothiazines AdvReac Unknown SHAKEY Verified 11/27/18 09:39 prochlorperazine AdvReac Unknown "BODY Verified 11/27/18 09:39 SHAKES" Quinolones AdvReac Unknown CIPRO- Verified 11/27/18 09:39 NAUSEA, NERVOUS, CHILLS simvastatin AdvReac Unknown STOMACH Verified 11/27/18 09:39 PAIN spironolactone AdvReac Unknown RECTAL Verified 11/27/18 09:39 PRESSURE, PAIN terazosin AdvReac Unknown LIGHTHEADEDNESS Verified 11/27/18 09:39 AND NAUSEA valdecoxib AdvReac Unknown GI SYMPTOMS Verified 11/27/18 09:39 Home Medications Home Medications Medication Instructions Recorded Confirmed Type acetaminophen [Acetaminophen Extra 500 mg PO TID PRN 07/28/18 11/27/18 History Strength] atorvastatin 10 mg PO HS 07/28/18 11/27/18 History cholecalciferol (vitamin D3) 3 tab PO QAM 07/28/18 11/27/18 History [Vitamin D3] clobetasol 1 applic TOPICAL 2XWK 07/28/18 11/27/18 History gabapentin 300 mg PO BID 07/28/18 11/27/18 History loratadine [Claritin] 10 mg PO QAM 07/28/18 11/27/18 History methenamine hippurate 1 g PO HS 07/28/18 11/27/18 History omeprazole 20 mg PO QAM 07/28/18 11/27/18 History phenazopyridine [Pyridium] 200 mg PO TID PRN 07/28/18 11/27/18 History telmisartan 80 mg PO QAM 07/28/18 11/27/18 History timolol maleate 1 drp OPHTHALMIC (EYE) BID 07/28/18 11/27/18 History tramadol 25 mg PO QID PRN 07/28/18 11/27/18 History Past Med/Surg History Family History Daughter Family history of breast cancer Other No family history of adverse response to anesthesia Social History Preferred Language: Sinhala Communication Ability: Effective Beef Splitter Required: No Beliefs That Will Affect Care: None Current Living Situation: Spouse Other Information That Helps Us Care for You: No Feels Safe at Home: Yes Smoking Status: Never smoker Hx Alcohol Use: No Hx Substance Use: No Review of Systems All systems reviewed & are unremarkable except as noted in HPI & below Physical Exam Vital Signs (Past 24 Hours): alert. nad Heent: pearla. eomi Heart: RRR lungs: CTA b/l abd: soft. +stoma. +mucous fistula. ext: no c/c/e
[2018-11-27] MEDS ORDERED: PROPOFOL IV EMULSION 10 MG/ML 20 ML VIAL IV ONE (10:10)
[2018-11-27] MEDS ORDERED: GLYCOPYRROLATE 0.2 MG/ML VIAL ONE (10:10)
[2018-11-27] MEDS ORDERED: DEXAMETHASONE SOD INJ 4 MG/ML VIAL ONE (10:10)
[2018-11-27] MEDS ORDERED: NEOSTIGMINE METHYLSULFATE 5 MG/5 ML SYR ONE (10:10)
[2018-11-27] MEDS ORDERED: ONDANSETRON INJ 2 MG/ML 2 ML VIAL ONE (10:10)
[2018-11-27] MEDS ORDERED: LIDOCAINE HCL 2% 2 ML VIAL/AMP(20MG/ML) INFIL ONE (10:10)
[2018-11-27] MEDS ORDERED: fentaNYL citrate 100 MCG/2 ML VIAL ONE ×3 (10:11→12:09)
[2018-11-27] MEDS ORDERED: ePHEDrine sulfate 50 MG/ML AMP IV PRN (10:32)
[2018-11-27] MEDS ORDERED: ONDANSETRON INJ 2 MG/ML 2 ML VIAL IV PRN (10:32)
[2018-11-27] MEDS ORDERED: ATROPINE SULFATE 0.1 MG/ML 10ML SYR IV PRN (10:32)
[2018-11-27] MEDS ORDERED: CLINDAMYCIN 600 MG/54 ML D5W IV ONE (10:35)
[2018-11-27] MEDS ORDERED: ePHEDrine sulfate 50 MG/ML SYR ONE (11:32)
[2018-11-27] MEDS ORDERED: ROCURONIUM BROMIDE 10 MG/ML 5 ML VIAL ONE (13:06)
[2018-11-27] MEDS: fentaNYL citrate 100 MCG/2 ML VIAL IV PRN ×5 (14:47→15:39)
--- NOTE | 2018-11-27 14:51 | Post Operative Brief Note ---
Immediate Post Op Note v1 Date of Surgery November 27, 2018 Pre & Post Diagnosis Operation Date: 11/27/18 10:45 Pre-Op Diagnosis: Colon Mass Post-Op Diagnosis: left Colon Mass with small bowel fistula. invasion of abdominal wall. extensive adhesions. Procedure Operation Date: 11/27/18 10:45 Actual Procedures p Exploratory Laparotomy, left tricia-Colectomy, Partial Small Bowel Resection x2, Extensive Enterolysis, Resection Portion Abdominal Wall(Not Applicable) - Andrey Lomax DO Surgeon Andrey Lomax DO Extractor Filler megan Herrera Estimated Blood Loss 50 Findings Consistent with Post-Op Diagnosis Specimens 1. portion of left colon 2. portion of abdominal wall 3. portion of small bowel. Drains Zepeda Catheter and Nahun-Rudolph Drain (10 flat)
[2018-11-27] MEDS ORDERED: METOCLOPRAMIDE HCL INJ 5 MG/ML 2 ML VIAL IV PRN (15:01)
[2018-11-27] MEDS ORDERED: ACETAMINOPHEN 1,000 MG/100 ML VIAL IV ONE (15:02)
[2018-11-27] MEDS ORDERED: ACETAMINOPHEN 1000 MG/100 ML IV IV ONE (15:10)
[2018-11-27 15:24] LABS: INR 1.1 (0.9-1.1); Prothrombin Time 10.9 Seconds (9.0-12.0)
--- NOTE | 2018-11-27 15:54 | Anesthesiology Progress Note ---
Date of Service November 27, 2018 Anesthesia Post Procedure Vital Signs Vital Signs: Temp Pulse Pulse Resp BP Pulse Ox 11/27/18 15:45 68 20 151/69 H 100 11/27/18 15:35 67 23 158/55 H 100 11/27/18 15:25 68 17 156/66 H 100 11/27/18 15:15 66 18 167/59 H 96 11/27/18 15:05 66 18 152/44 H 96 11/27/18 14:55 69 16 123/70 100 11/27/18 14:45 78 25 H 101/53 L 100 11/27/18 14:36 97.0 F L 81 18 147/57 H 100 11/27/18 09:10 99.5 F 74 18 214/76 H 97 Pain Intensity Left Abdomen: Pain Intensity: 1 Lower Back: Pain Intensity: 0 Abdomen: Pain Intensity: 7 Notes Mental Status: alert / awake / arousable and participated in evaluation Patient Amnestic to Procedure: Yes Nausea / Vomiting: adequately controlled Pain: adequately controlled Airway Patency, RR, SpO2: stable & adequate BP & HR: stable & adequate Hydration State: stable & adequate Anesthetic Complications: no major complications apparent and Pt Satisfied with anesthetic care
[2018-11-27] MEDS ORDERED: MoRPHine SULFATE PCA 50 MG/50ML IV PRN (16:24)
[2018-11-27] MEDS ORDERED: NALOXONE HCL 0.4 MG/1 ML VIAL/CARP IV PRN (16:24)
[2018-11-27] MEDS ORDERED: SODIUM CHLORIDE 0.9% 1000ML 1,000 ML IV SCH (16:24)
[2018-11-27] MEDS: LACTATED RINGER'S 1,000 ML IV SCH (16:33)
[2018-11-27] MEDS: ONDANSETRON INJ 2 MG/ML 2 ML VIAL IV PRN (17:37)
--- NOTE | 2018-11-27 17:41 | Operative Report ---
Post Operative Report Pre & Post Diagnosis Operation Date: 11/27/18 10:45 Pre-Op Diagnosis: Colon Mass Post-Op Diagnosis: Colon Mass; small bowel fistula;extensive enterolysis; Procedure Operation Date: 11/27/18 10:45 Actual Procedures p Exploratory Laparotomy, left hemicolectomy Colectomy, Partial Small Bowel Resection x2, Extensive Enterolysis, Resection Portion Abdominal Wall(Not Applicable) - Andrey Lomax DO Surgeon Andrey Lomax DO Catheter Builder megan Herrera Estimated Blood Loss 50 Findings Consistent with Post-Op Diagnosis Specimens left colon; portion of abdominal wall; portion of small bowel. Description of Procedure After informed consent was obtained the patient was taken to the operating room and placed in supine position. After successful intubation a Zepeda catheter was placed. We removed her stoma bag and covered it with a gauze 4 x 4 and an OpSite. We then sterilely prepped and draped the entire abdomen. I began with a lower midline incision from the umbilicus down to the pubic symphysis. I would end up extending this superiorly around the umbilicus eventually. Prior to making the incision I did close the mucous fistula using 2-0 silk in simple interrupted fashion. I carried the incision down through the soft tissue using cautery. I opened the anterior rectus fascia cautiously using electrocautery and found essentially a frozen abdomen. I worked tediously for probably an hour and a half to take down adhesions in the lower half of the abdomen. This involved traction countertraction blunt dissection and scissor lysis. Eventually I was able to make my way over towards the mucous fistula and I was able to easily palpate what was a very large exophytic colon mass. I was able to identify the blue dye as well. There were 2 loops of small bowel essentially fistulized to the colon/mass. I had to purposely cut both of these segments of small bowel away from the tumor itself to free it up. Both areas of small bowel did have tumor seeding on the serosal surfaces. When I cut the bowel away from the tumor did expose a small what appeared to be fistulous tract with open mucosa of small bowel. I mobilized the left colon along the white line of Toldt down to the brim of the pelvis. Unfortunately this mass had grown into the left abdominal wall. In order free it up I essentially had to cauterize through tumor burden itself to be able to free up the left colon. It was potentially too close to the ureter to be able to excise the fascia along with the colon. I made an elliptical incision around the mucous fistula and used cautery to carry this down to the fascia. Eventually I was able to deliver this through the stoma site. Once I did this I was then able to use a LARS purple cartridge stapler to transect the colon right at the pelvic brim. I then used the LigaSure device to take down the mesentery of the remainder of the left colon. I then passed the specimen off. Next I set about to resecting a portion of the fascia and muscle the still had tumor burden on it. I was able to grab the posterior fascia using Allis clamps and I used cautery to come around the visible tumor burden in 360 degrees trying to obtain gross margins. I did have to take a small portion of the oblique muscles as well as all the posterior fascia. Eventually I was able to get this completely resected and passed off to be sent to pathology as well. I then closed the fascia of the stoma using 0 PDS in simple interrupted fashion. I used a clip hemodialysis charge nurse to place clips around the periphery of the abdominal wall where the tumor had invaded in case radiation treatment would be recommended in the future. Once the majority of the tumor burden was out of the abdomen we then all changed our gloves. I continued to use tedious dissection using blunt dissection and scissor lysis to free up the small bowel throughout the lower half of the abdomen. I did not see any other evidence of metastatic disease. I would need to segmentally resect the 2 areas where the small bowel that had essentially fistulized to the tumor. They were too distant from each other to incorporate them in one resection. I therefore transected both areas proximal and distal using a LARS brown cartridge stapler. LigaSure device was then used to take down the mesentery of both of the short segment and they were both passed off the pathology. I performed a side to side anastomosis on the most distal small bowel resection using a LARS brown stapler. Because of proximity of the staple line I decided to close the common enterotomy using 3-0 Monocryl in a running fashion followed by 3-0 silk in Lembert fashion. 3-0 silk was also used to place a crotch stitch. 2-0 Vicryl was used to close the mesenteric defect. In similar fashion the proximal most segment that had been resected was anastomosis again in a side to side fashion using brown linear cartridge. However this enterotomy I was able to closed with a TA 60 stapling device. A silk was also used to place a crotch stitch. The mesenteric defect was closed using 2-0 Vicryl in a running fashion. Thorough irrigation of the entire abdomen was performed. There was one small serosal tear that I oversewed with 3-0 Monocryl and 3-0 silk. No other abnormalities were identified. We continued to thoroughly irrigate the abdomen until the irrigant was clear. Despite the tedious nature of the surgery we did not have any spillage within the abdominal cavity throughout the procedure. I placed a 10 flat Nahun-Rudolph drain through her previous stoma site into the abdomen and secured it using 2-0 nylon. We did tighten the fascia around it using 0 Vicryl. I then closed the fascia using 0- loop PDS starting either pole and running them and securing them in the midline. Soft tissue was irrigated and skin was closed using skin cristine. Silver dressing was applied. Patient was awakened extubated and transferred recovery in guarded condition. My physician inventory control assistant was present for 75% of the case. He helped with retraction and exposure. He helped me perform the anastomoses as well as wound closure and dressing placement. I attest to the content of the Intraoperative Record and any orders documented therein. Any exceptions are noted below.
--- NOTE | 2018-11-27 18:19 | Consultation ---
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 Lomax. 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 -antiemetics as below -keep NPO and await return of bowel function -drain in place (2) Nausea & vomiting: secondary to bowel surgery vs reaction to anesthesia or to morphine -continue ZOfran prn -add Reglan 5mg IV q6h prn as she has allergies to compazine and phenothiazides -keep NPO -consider NGT if not improving but would discuss with Surgeon first -continue IVFs -follow CBC, BMP (3) Hypertension: stable -holding home telmisartan (4) Hyperlipidemia: -holding home statin while NPO (5) Glaucoma: -continue home eye drops timolol (6) Colon cancer: with mets to peritoneum, LNs, previously completed chemo with high dose 5- FU and leucovorin -Now with recurrence in bowel s/p resection -Oncology following as outpt -await pathology results here (7) GERD (gastroesophageal reflux disease): continue PPI IV (8) Interstitial cystitis: holding home [place], follows with Urol -methanamine is ordered but is a po med so not sure if can take (9) ILD (interstitial lung disease): not on home O2, sees Pulm as outpt, unclear etiology but seemed to develop after getting chemo? 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 Otherwise denies headache, lightheadedness, chest pain, SOB. She also on tele had a brief Mobitz type II block just before I went to see her. Allergies Allergy/AdvReac Type Severity Reaction Status Date / Time diltiazem Allergy Unknown TIGHTENING Verified 11/27/18 09:39 OF THROAT erythromycin base Allergy Unknown PT UNSURE Verified 11/27/18 09:39 hydralazine Allergy Unknown dysuria Verified 11/27/18 09:39 mivacurium Allergy Unknown PT UNSURE Verified 11/27/18 09:39 nifedipine Allergy Unknown EXACERBATION Verified 11/27/18 09:39 INTERSTITIAL CYCSTITIS nitrofurantoin Allergy Unknown RASH Verified 11/27/18 09:39 quinine Allergy Unknown PT UNSURE Verified 11/27/18 09:39 Sulfa (Sulfonamide Allergy Unknown RASH Verified 11/27/18 09:39 Antibiotics) azithromycin [From Zithromax] AdvReac Intermediate Rash Verified 11/27/18 09:39 bexarotene AdvReac Intermediate n/v Verified 11/27/18 09:39 Beta-Blockers AdvReac Mild "Secondary Verified 11/27/18 09:39 (Beta-Adrenergic Bloc AVB" Cipro AdvReac Unknown GI SYMPTOMS Verified 04/22/18 09:21 ciprofloxacin AdvReac Unknown GI SYMPTOMS Verified 11/27/18 09:39 hydrochlorothiazide AdvReac Unknown Rash Verified 11/27/18 09:39 hydrocodone AdvReac Unknown GI UPSET Verified 11/27/18 09:39 lisinopril AdvReac Unknown "INTOLERANCE" Verified 11/27/18 09:[address] COLON losartan AdvReac Unknown JITTERY,SHA Verified 11/27/18 09:39 DOHERTY meperidine AdvReac Unknown GI UPSET Verified 11/27/18 09:39 methenamine AdvReac Unknown HX STOMACH Verified 11/27/18 09:39 PAIN- SEE NOTES metronidazole AdvReac Unknown STOMACH Verified 11/27/18 09:39 PAIN Phenothiazines AdvReac Unknown SHAKEY Verified 11/27/18 09:39 prochlorperazine AdvReac Unknown "BODY Verified 11/27/18 09:39 SHAKES" Quinolones AdvReac Unknown CIPRO- Verified 11/27/18 09:39 NAUSEA, NERVOUS, CHILLS simvastatin AdvReac Unknown STOMACH Verified 11/27/18 09:39 PAIN spironolactone AdvReac Unknown RECTAL Verified 11/27/18 09:39 PRESSURE, PAIN terazosin AdvReac Unknown LIGHTHEADEDNESS Verified 11/27/18 09:39 AND NAUSEA valdecoxib AdvReac Unknown GI SYMPTOMS Verified 11/27/18 09:39 Home Medications Home Medications Medication Instructions Recorded Confirmed Type acetaminophen [Acetaminophen Extra 500 mg PO TID PRN 07/28/18 11/27/18 History Strength] atorvastatin 10 mg PO HS 07/28/18 11/27/18 History cholecalciferol (vitamin D3) 3 tab PO QAM 07/28/18 11/27/18 History [Vitamin D3] clobetasol 1 applic TOPICAL 2XWK 07/28/18 11/27/18 History gabapentin 300 mg PO BID 07/28/18 11/27/18 History loratadine [Claritin] 10 mg PO QAM 07/28/18 11/27/18 History methenamine hippurate 1 g PO HS 07/28/18 11/27/18 History omeprazole 20 mg PO QAM 07/28/18 11/27/18 History phenazopyridine [Pyridium] 200 mg PO TID PRN 07/28/18 11/27/18 History telmisartan 80 mg PO QAM 07/28/18 11/27/18 History timolol maleate 1 drp OPHTHALMIC (EYE) BID 07/28/18 11/27/18 History tramadol 25 mg PO QID PRN 07/28/18 11/27/18 History Patient History Medical History Anemia Aortic insufficiency CKD (chronic kidney disease) stage 3, GFR 30-59 ml/min Chronic diastolic CHF (congestive heart failure) Folate deficiency Osteoporosis Renal artery stenosis Seasonal allergies Second degree atrioventricular block Cardiac murmur No significant valve disease per 2017 echo Carotid artery stenosis Carotid Doppler 07/23/2016 showed 50-69% stenosis bilateral internal carotid arteries. Per PCP 08/26/18 "Continue with current treatment. Previously had plan to repeat carotid Doppler for re-evaluation. Given the patient's advanced age and other problems though we decided not to pursue further carotid Doppler screening at least at this time." Colon cancer 2016--sx, chemo Colostomy in place REPORTS "FISSURE LEFT SIDE OF ABDOMEN" Elevated CEA GERD (gastroesophageal reflux disease) Glaucoma History of vertebral fracture PER 06/2018 XRAY: "There is a new superior endplate L4 compression fracture. There is an old L2 compression fracture. There are severe T12 and L1 compression fractures. The bones are osteopenic. There are multilevel degenerative changes." Hyperlipidemia Hypertension ILD (interstitial lung disease) No SOB with stairs Interstitial cystitis MRSA nasal colonization Osteoarthritis Skin cancer Vertigo Surgical History History of temporal artery biopsy H/O exploratory laparotomy 2017. status post open transverse colectomy with primary anastomosis, omentectomy, excision or biopsy of left liver lesion performed by Dr. Lomax 12/13/2016. Unfortunately postoperatively she developed intra- abdominal abscesses requiring re-exploration of her abdomen, washout of the abscesses, takedown of the primary anastomosis and creation of a colostomy and mucous fistula. History of bilateral cataract extraction History of bowel resection 2016 for colon cancer--colostomy History of cervical polypectomy History of colonoscopy History of tooth extraction all teeth removed Family History Daughter Family history of breast cancer Other No family history of adverse response to anesthesia Social History Preferred Language: Georgian Communication Ability: Effective Beliefs That Will Affect Care: None marital status: Current Living Situation: Spouse Other Information That Helps Us Care for You: No Feels Safe at Home: Yes Safety Concerns: Feels Safe At This Time Smoking Status: Never smoker Hx Alcohol Use: No Hx Substance Use: No Review of Systems 14 point review of systems otherwise negative except as per HPI Physical Exam Vital Signs (Past 24 Hours): Last Vital Signs Temp 36.5 C 11/27/18 15:55 Pulse 78 11/27/18 16:05 Resp 21 11/27/18 16:05 BP 135/87 11/27/18 16:05 Pulse Ox 100 11/27/18 16:05 Constitutional: well developed and + ill appearing; no acute distress Eyes: PERRL, conjunctivae normal, anicteric sclerae ENMT: external ear and nose normal, oropharynx normal Neck: trachea midline, no thyromegaly Respiratory: normal respiratory effort Auscultation: + crackles (fine, in lower and middle lung kam bilat); no wheezes Cardiovascular: RRR, no murmur, no edema Gastrointestinal (Abdomen): Inspection/Auscultation: + hypoactive bowel sounds; + abdomen abnormal to inspection (large dressing in place c/d/i, RLQ ostomy bag intact) Percussion/Palpation: + abdomen tender (mild over incision site) and abdomen soft Musculoskeletal: Extremities: extremities normal to inspection; no cyanosis and no clubbing Skin: no rashes, warm and dry Neurologic: moves all extremities and awake; no focal motor deficits Psychiatric: A+Ox3, euthymic affect Results & Data Laboratory Results 11/28/18 11/28/18 11/27/18 Range/Units 05:48 05:48 14:53 WBC 10.12 (4.8-10.8) K/uL RBC 3.15 L (4.2-5.4) M/uL Hgb 9.4 L (12.0-16.0) g/dL Hct 29.2 L (37-47) % MCV 92.7 (80-100) fL MCH 29.8 (25-34) pg MCHC 32.2 (32-36) g/dL RDW Std Deviation 46.9 H (36.4-46.3) fL RDW Coeff of [place] 13.9 (11.5-14.5) % Plt Count 310 (130-400) K/uL MPV 9.3 (7.4-10.4) fL Immature Gran % (Auto) 0.2 % Neut % (Auto) 76.7 % Lymph % (Auto) 16.2 % [place] % (Auto) 6.7 % Eos % (Auto) 0.1 % Baso % (Auto) 0.1 % Immature Gran # (Auto) 0.02 (0.00-0.02) K/uL Neut # (Auto) 7.76 H (1.4-6.5) K/uL Lymph # (Auto) 1.64 (1.2-3.4) K/uL [place] # (Auto) 0.68 H (0.11-0.59) K/uL Eos # (Auto) 0.01 (0-0.5) K/uL Baso # (Auto) 0.01 (0-0.2) K/uL PT 10.9 (9.0-12.0) Seconds INR 1.1 (0.9-1.1) Sodium 137 (136-145) mmol/L Potassium 4.7 (3.5-5.1) mmol/L Chloride 106 (98-107) mmol/L Carbon Dioxide 26 (21-32) mmol/L Anion Gap 5.0 (3-11) BUN 17 (7-18) mg/dl Creatinine 1.23 H (0.6-1.2) mg/dl Est Cr Clr Drug Dosing 27.2 ml/min Est GFR ( Amer) 46.0 Est GFR (Non-Af Amer) 39.7 BUN/Creatinine Ratio 13.5 (10-20) Glucose 99 (70-99) mg/dl Calcium 6.8 L (8.5-10.1) mg/dl
[2018-11-27] MEDS: METOCLOPRAMIDE HCL INJ 5 MG/ML 2 ML VIAL IV PRN (18:39)
[2018-11-27] MEDS: cefOXitin 2,000 MG in DEXTROSE 5% 50 ML IV SCH ×2 (18:48→21:41)
[2018-11-27] MEDS: GABAPENTIN 300 MG CAP PO SCH (21:40)
[2018-11-27] MEDS: TIMOLOL MALEATE 0.25% OP SOLN 5 ML BTL OP SCH (21:41)
[2018-11-27] MEDS: METHENAMINE HIPPURATE 1 GM TAB PO SCH (21:41)
[2018-11-27] MEDS: ACETAMINOPHEN 1,000 MG/100 ML VIAL IV SCH (22:12)
[2018-11-28] MEDS: LACTATED RINGER'S 1,000 ML IV SCH ×2 (00:33→09:11)
[2018-11-28] MEDS ORDERED: CLOBETASOL PROPIONATE 0.05% OINT 15 GM TUBE EXT PRN (00:54)
[2018-11-28] MEDS: cefOXitin 2,000 MG in DEXTROSE 5% 50 ML IV SCH ×2 (05:56→11:08)
[2018-11-28] MEDS: ACETAMINOPHEN 1,000 MG/100 ML VIAL IV SCH ×3 (05:57→23:23)
[2018-11-28 06:39] LABS: Basophils # (auto) 0.01 K/uL (0-0.2); Basophils % (auto) 0.1 %; Eosinophils # (auto) 0.01 K/uL (0-0.5); Eosinophils % (auto) 0.1 %; Hematocrit (blood only) 29.2 % (37-47); Hemoglobin 9.4 g/dL (12.0-16.0); Immature Granulocytes # (auto) 0.02 K/uL (0.00-0.02); Immature Granulocytes % (auto) 0.2 %; Lymphocytes # (auto) 1.64 K/uL (1.2-3.4); Lymphocytes % (auto) 16.2 %; Mean Corpuscular Hgb Conc 32.2 g/dL (32-36); Mean Corpuscular Volume 92.7 fL (80-100); Mean Platelet Volume 9.3 fL (7.4-10.4); Monocytes # (auto) 0.68 K/uL (0.11-0.59); Monocytes % (auto) 6.7 %; Neutrophils # (auto) 7.76 K/uL (1.4-6.5); Neutrophils % (auto) 76.7 %; Platelet Count 310 K/uL (130-400); RDW Coefficient of Variation 13.9 % (11.5-14.5); RDW Standard Deviation 46.9 fL (36.4-46.3); Red Blood Count 3.15 M/uL (4.2-5.4); White Blood Count 10.12 K/uL (4.8-10.8)
[2018-11-28 07:15] LABS: BUN Creatinine Ratio 13.5 (10-20); Calcium 6.8 mg/dl (8.5-10.1); Creatinine Clr Calc Pharmacy 27.2 ml/min; Est GFR (Non-African American) 39.7; Potassium 4.7 mmol/L (3.5-5.1)
--- NOTE | 2018-11-28 08:06 | Anesthesiology Progress Note ---
Date of Service November 28, 2018 Anesthesia Post Procedure Vital Signs Vital Signs: Temp Pulse Pulse Resp BP Pulse Ox 11/28/18 04:23 36.9 C 88 18 119/46 L 99 11/27/18 23:58 37.2 C 77 26 H 111/39 L 100 11/27/18 21:00 90 18 137/50 L 100 11/27/18 20:00 95 H 18 177/53 H 100 11/27/18 19:30 96 H 18 184/53 H 100 11/27/18 18:58 36.9 C 84 18 167/54 H 98 11/27/18 18:00 36.8 C 79 18 145/56 H 100 11/27/18 16:30 36.8 C 79 16 145/56 H 100 11/27/18 16:05 78 21 135/87 100 11/27/18 15:55 36.5 C 64 21 168/76 H 100 11/27/18 15:45 68 20 151/69 H 100 11/27/18 15:35 67 23 158/55 H 100 11/27/18 15:25 68 17 156/66 H 100 11/27/18 15:15 66 18 167/59 H 96 11/27/18 15:05 66 18 152/44 H 96 11/27/18 14:55 69 16 123/70 100 11/27/18 14:45 78 25 H 101/53 L 100 11/27/18 14:36 36.1 C L 81 18 147/57 H 100 11/27/18 09:10 37.5 C 74 18 214/76 H 97 Notes Mental Status: alert / awake / arousable and participated in evaluation Patient Amnestic to Procedure: Yes Nausea / Vomiting: adequately controlled Pain: adequately controlled Airway Patency, RR, SpO2: stable & adequate BP & HR: stable & adequate Hydration State: stable & adequate Anesthetic Complications: no major complications apparent and Pt Satisfied with anesthetic care
[2018-11-28] MEDS: ENOXAPARIN INJ 30 MG/0.3 ML SYR SQ SCH (08:32)
[2018-11-28] MEDS: GABAPENTIN 300 MG CAP PO SCH ×2 (08:32→22:11)
[2018-11-28] MEDS: TIMOLOL MALEATE 0.25% OP SOLN 5 ML BTL OP SCH ×2 (08:35→22:12)
[2018-11-28] MEDS ORDERED: HYDROmorphone INJ 1 MG/ML SYRINGE IV STA (09:04)
--- NOTE | 2018-11-28 09:14 | Cardiology Consultation ---
Date of Consultation November 28, 2018 Assessment & Plan (1) Second degree AV block: She was noted to have a brief episode of second degree AV block with 2:1 conduction last evening at 17:49 on telemetry monitoring. She was reportedly vomiting/dry heaving around this time, therefore, the arrhythmia could have been vasovagal in nature. Otherwise, she has been in a normal sinus rhythm, and she is asymptomatic. Recommend continuing to monitor on telemetry during her hospitalization. Could consider mobile telemetry monitoring as an outpatient, but will wait to decide this towards the end of her hospitalization, pending her clinical course. Patient was seen and discussed with Dr. Bar. Supervising Physician Co-Signing Physician Notes Patient seen and examined. Agree with above. Continue to monitor. History of Present Illness Reason for Consultation: 2nd degree AV block Requesting Physician: Dr. Kincaid History of Present Illness Patient is an 88-year-old female with a complex past medical history who was admitted for exploratory laparotomy, left hemicolectomy, partial small bowl resection x2, and resection of portion of abdominal wall for recurrent CA on 11/27/[address] Lomax. A cardiology consultation was requested given a brief episode of second degree AV block noted on telemetry monitoring last evening at 5:49 pm. Patient is currently being seen in her room in . Her daughter is present with her, and she reports that last evening she was nauseous and vomiting/dry heaving while she was with her from 5-7:00 pm. She was treated with Zofran and Reglan with improvement. Patient reports abdominal and back discomfort currently. She denies chest pain or shortness of breath. She denies lightheadedness, syncope, or presyncope. She denies lower extremity edema. She has not noted any palpitations. Review of Systems: As noted in HPI. All other 10 point ROS are reviewed and otherwise negative at this time. PMH: 1. Metastatic colon CA with prior open transverse colectomy 11/16/16 2. Hypertension with moderate LVH and grade II diastolic dysfunction on most recent echo in 12/2016 3. GERD 4. Dyslipidemia 5. Prediabetes 6. Carotid artery stenosis 7. Transient second degree AV block in 2009, while on beta sandra 8. MRSA vaginitis/vulvitis 9. Allergic rhinitis 10. Osteoporosis with history of compression fractures 11. Interstitial lung disease 12. Chronic kidney disease 13. Anemia 14. Glaucoma Family history: Noncontributory given advanced age. Social history: She denies smoking or alcohol use. Allergies Allergy/AdvReac Type Severity Reaction Status Date / Time diltiazem Allergy Unknown TIGHTENING Verified 11/27/18 09:39 OF THROAT erythromycin base Allergy Unknown PT UNSURE Verified 11/27/18 09:39 hydralazine Allergy Unknown dysuria Verified 11/27/18 09:39 mivacurium Allergy Unknown PT UNSURE Verified 11/27/18 09:39 nifedipine Allergy Unknown EXACERBATION Verified 11/27/18 09:39 INTERSTITIAL CYCSTITIS nitrofurantoin Allergy Unknown RASH Verified 11/27/18 09:39 quinine Allergy Unknown PT UNSURE Verified 11/27/18 09:39 Sulfa (Sulfonamide Allergy Unknown RASH Verified 11/27/18 09:39 Antibiotics) azithromycin [From Zithromax] AdvReac Intermediate Rash Verified 11/27/18 09:39 bexarotene AdvReac Intermediate n/v Verified 11/27/18 09:39 Beta-Blockers AdvReac Mild "Secondary Verified 11/27/18 09:39 (Beta-Adrenergic Bloc AVB" Cipro AdvReac Unknown GI SYMPTOMS Verified 04/22/18 09:21 ciprofloxacin AdvReac Unknown GI SYMPTOMS Verified 11/27/18 09:39 hydrochlorothiazide AdvReac Unknown Rash Verified 11/27/18 09:39 hydrocodone AdvReac Unknown GI UPSET Verified 11/27/18 09:39 lisinopril AdvReac Unknown "INTOLERANCE" Verified 11/27/18 09:[address] COLON losartan AdvReac Unknown JITTERY,SHA Verified 11/27/18 09:39 DOHERTY meperidine AdvReac Unknown GI UPSET Verified 11/27/18 09:39 methenamine AdvReac Unknown HX STOMACH Verified 11/27/18 09:39 PAIN- SEE NOTES metronidazole AdvReac Unknown STOMACH Verified 11/27/18 09:39 PAIN Phenothiazines AdvReac Unknown SHAKEY Verified 11/27/18 09:39 prochlorperazine AdvReac Unknown "BODY Verified 11/27/18 09:39 SHAKES" Quinolones AdvReac Unknown CIPRO- Verified 11/27/18 09:39 NAUSEA, NERVOUS, CHILLS simvastatin AdvReac Unknown STOMACH Verified 11/27/18 09:39 PAIN spironolactone AdvReac Unknown RECTAL Verified 11/27/18 09:39 PRESSURE, PAIN terazosin AdvReac Unknown LIGHTHEADEDNESS Verified 11/27/18 09:39 AND NAUSEA valdecoxib AdvReac Unknown GI SYMPTOMS Verified 11/27/18 09:39 Home Medications Home Medications Medication Instructions Recorded Confirmed Type acetaminophen [Acetaminophen Extra 500 mg PO TID PRN 07/28/18 11/27/18 History Strength] atorvastatin 10 mg PO HS 07/28/18 11/27/18 History cholecalciferol (vitamin D3) 3 tab PO QAM 07/28/18 11/27/18 History [Vitamin D3] clobetasol 1 applic TOPICAL 2XWK 07/28/18 11/27/18 History gabapentin 300 mg PO BID 07/28/18 11/27/18 History loratadine [Claritin] 10 mg PO QAM 07/28/18 11/27/18 History methenamine hippurate 1 g PO HS 07/28/18 11/27/18 History omeprazole 20 mg PO QAM 07/28/18 11/27/18 History phenazopyridine [Pyridium] 200 mg PO TID PRN 07/28/18 11/27/18 History telmisartan 80 mg PO QAM 07/28/18 11/27/18 History timolol maleate 1 drp OPHTHALMIC (EYE) BID 07/28/18 11/27/18 History tramadol 25 mg PO QID PRN 07/28/18 11/27/18 History Patient History Medical History Anemia Aortic insufficiency CKD (chronic kidney disease) stage 3, GFR 30-59 ml/min Chronic diastolic CHF (congestive heart failure) Folate deficiency Renal artery stenosis Seasonal allergies Second degree atrioventricular block Cardiac murmur No significant valve disease per 2017 echo Carotid artery stenosis Carotid Doppler 07/23/2016 showed 50-69% stenosis bilateral internal carotid arteries. Per PCP 08/26/18 "Continue with current treatment. Previously had plan to repeat carotid Doppler for re-evaluation. Given the patient's advanced age and other problems though we decided not to pursue further carotid Doppler screening at least at this time." Colon cancer 2016--sx, chemo Colostomy in place REPORTS "FISSURE LEFT SIDE OF ABDOMEN" Elevated CEA GERD (gastroesophageal reflux disease) Glaucoma History of vertebral fracture PER 06/2018 XRAY: "There is a new superior endplate L4 compression fracture. There is an old L2 compression fracture. There are severe T12 and L1 compression fractures. The bones are osteopenic. There are multilevel degenerative changes." Hyperlipidemia Hypertension ILD (interstitial lung disease) No SOB with stairs Interstitial cystitis MRSA nasal colonization Osteoarthritis Skin cancer Vertigo Surgical History History of temporal artery biopsy H/O exploratory laparotomy 2016. status post open transverse colectomy with primary anastomosis, omentectomy, excision or biopsy of left liver lesion performed by Dr. Lomax 12/13/2016. Unfortunately postoperatively she developed intra- abdominal abscesses requiring re-exploration of her abdomen, washout of the abscesses, takedown of the primary anastomosis and creation of a colostomy and mucous fistula. History of bilateral cataract extraction History of bowel resection 2015 for colon cancer--colostomy History of cervical polypectomy History of colonoscopy History of tooth extraction all teeth removed Family History Daughter Family history of breast cancer Other No family history of adverse response to anesthesia Social History Communication Ability: Effective Beliefs That Will Affect Care: None marital status: Current Living Situation: Spouse Other Information That Helps Us Care for You: No Feels Safe at Home: Yes Safety Concerns: Feels Safe At This Time Smoking Status: Never smoker Hx Alcohol Use: No Hx Substance Use: No Physical Exam 2 Vital Signs (Past 24 Hours): Last Vital Signs Temp 37.6 C H 11/28/18 08:00 Pulse 80 11/28/18 08:00 Resp 16 11/28/18 08:00 BP 135/40 L 11/28/18 08:00 Pulse Ox 100 11/28/18 08:00 Constitutional: Alert, oriented, in no acute distress HEENT: Head is atraumatic and normocephalic. EOMs intact. Sclera anicteric. Face is symmetric. No perioral cyanosis. Mucous membranes moist. Neck: Supple, no appreciable JVD Pulmonary: Normal respiratory effort, clear to auscultation bilaterally Cardiac: Regular rate and rhythm, normal S1 and S2, no gallops, no rubs, 1/6 basal systolic murmur Extremities: No clubbing, cyanosis, or edema. Pulses 2+ and symmetric Abdomen: Large dressing in place. RLQ ostomy bag. Abdomen soft and tender. Skin: Scattered areas of ecchymosis. No rash or skin lesions Neurological: Oriented to person, place, and time Results & Data Laboratory Results Laboratory Results WBC 10.12 K/uL (4.8-10.8) 11/28/18 05:48 RBC 3.15 M/uL (4.2-5.4) L 11/28/18 05:48 Hgb 9.4 g/dL (12.0-16.0) L 11/28/18 05:48 Hct 29.2 % (37-47) L 11/28/18 05:48 MCV 92.7 fL (80-100) 11/28/18 05:48 MCH 29.8 pg (25-34) 11/28/18 05:48 MCHC 32.2 g/dL (32-36) 11/28/18 05:48 RDW Std Deviation 46.9 fL (36.4-46.3) H 11/28/18 05:48 RDW Coeff of [place] 13.9 % (11.5-14.5) 11/28/18 05:48 Plt Count 310 K/uL (130-400) 11/28/18 05:48 MPV 9.3 fL (7.4-10.4) 11/28/18 05:48 Immature Gran % (Auto) 0.2 % 11/28/18 05:48 Neut % (Auto) 76.7 % 11/28/18 05:48 Lymph % (Auto) 16.2 % 11/28/18 05:48 [place] % (Auto) 6.7 % 11/28/18 05:48 Eos % (Auto) 0.1 % 11/28/18 05:48 Baso % (Auto) 0.1 % 11/28/18 05:48 Immature Gran # (Auto) 0.02 K/uL (0.00-0.02) 11/28/18 05:48 Neut # (Auto) 7.76 K/uL (1.4-6.5) H 11/28/18 05:48 Lymph # (Auto) 1.64 K/uL (1.2-3.4) 11/28/18 05:48 [place] # (Auto) 0.68 K/uL (0.11-0.59) H 11/28/18 05:48 Eos # (Auto) 0.01 K/uL (0-0.5) 11/28/18 05:48 Baso # (Auto) 0.01 K/uL (0-0.2) 11/28/18 05:48 PT 10.9 Seconds (9.0-12.0) 11/27/18 14:53 INR 1.1 (0.9-1.1) 11/27/18 14:53 Sodium 137 mmol/L (136-145) 11/28/18 05:48 Potassium 4.7 mmol/L (3.5-5.1) 11/28/18 05:48 Chloride 106 mmol/L (98-107) 11/28/18 05:48 Carbon Dioxide 26 mmol/L (21-32) 11/28/18 05:48 Anion Gap 5.0 (3-11) 11/28/18 05:48 BUN 17 mg/dl (7-18) 11/28/18 05:48 Creatinine 1.23 mg/dl (0.6-1.2) H 11/28/18 05:48 Est Cr Clr Drug Dosing 27.2 ml/min 11/28/18 05:48 Est GFR ( Amer) 46.0 11/28/18 05:48 Est GFR (Non-Af Amer) 39.7 11/28/18 05:48 BUN/Creatinine Ratio 13.5 (10-20) 11/28/18 05:48 Glucose 99 mg/dl (70-99) 11/28/18 05:48 Calcium 6.8 mg/dl (8.5-10.1) L 11/28/18 05:48 Albumin 2.2 gm/dl (3.4-5.0) L 11/28/18 05:48 Blood Type A Positive 11/12/18 14:02 Antibody Screen NEGATIVE 11/12/18 14:02 Diagnostic Findings ECG 11/12/18: Normal sinus rhythm at 61 bpm. Telemetry monitoring: Brief episode of second degree AV block with 2:1 conduction at 17:49 last evening. Otherwise, she has been in sinus rhythm in the 70-80s.
[2018-11-28] MEDS ORDERED: BENZONATATE 100 MG CAPSULE PO PRN (10:14)
--- NOTE | 2018-11-28 10:21 | Surgery Progress Note ---
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 doing better now after dilaudid. Physical Exam Vital Signs (Past 24 Hours): Last Vital Signs Temp 37.6 C H 11/28/18 08:00 Pulse 80 11/28/18 08:00 Resp 16 11/28/18 08:00 BP 135/40 L 11/28/18 08:00 Pulse Ox 100 11/28/18 08:00 Physical Exam: alert. nad abd: soft. expected tenderness. FRANCINE serous
[2018-11-28] MEDS ORDERED: HYDROmorphone INJ 0.5 MG/0.5 ML SYR IV PRN (10:24)
[2018-11-28] MEDS ORDERED: NALOXONE HCL 0.4 MG/1 ML VIAL/CARP IV PRN (10:24)
[2018-11-28] MEDS ORDERED: D5W AND 1/2NSS + 20MEQ KCL 20 MEQ/1,000 ML BAG IV SCH (10:30)
[2018-11-28] MEDS: PANTOprazole 40 MG in SYRINGE 0 ML IV SCH (11:04)
[2018-11-28] MEDS: HYDROmorphone HCL 0.5MG/ML 50 ML CASSETTE IV PRN ×2 (11:06→15:14)
[2018-11-28] MEDS: ONDANSETRON INJ 2 MG/ML 2 ML VIAL IV PRN (11:58)
[2018-11-28] MEDS: D5W AND 1/2NSS 1,000 ML IV SCH ×2 (13:04→22:11)
[2018-11-28] MEDS: SODIUM CHLORIDE 0.9% 1000ML 1,000 ML IV SCH (13:53)
[2018-11-28] MEDS ORDERED: CALCIUM GLUCONATE 10% 1,000 MG in SODIUM CHLORIDE 0.9% 50 ML IV STA (16:22)
--- NOTE | 2018-11-28 17:20 | Hospitalist Progress Note ---
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 Lomax. -post-op management as per Surgery -switched pain control to Dialudid ANIMAL BIOLOGIST -antiemetics as below -keep NPO and await return of bowel function -drain in place (2) Nausea & vomiting: secondary to bowel surgery vs reaction to anesthesia or to morphine -continue ZOfran prn -continue Reglan 5mg IV q6h prn as she has allergies to compazine and phenothiazides -keep NPO -consider NGT if not improving but would discuss with Surgeon first -continue IVFs -follow CBC, BMP, Mag, Phos -add IV Zantac for reflux symptoms (3) Hypertension: stable -continue holding home telmisartan (4) Hyperlipidemia: -holding home statin while NPO (5) Glaucoma: -continue home eye drops timolol (6) Colon cancer: with mets to peritoneum, LNs, previously completed chemo with high dose 5- FU and leucovorin -Now with recurrence in bowel s/p resection -Oncology following as outpt -await pathology results here (7) GERD (gastroesophageal reflux disease): continue PPI IV -add IV Zantac for breakthrough symptoms today (8) Interstitial cystitis: holding home Elmiron, follows with Urol -continue methanamine (9) ILD (interstitial lung disease): not on home O2, sees Pulm as outpt, unclear etiology but seemed to develop after getting chemo? -O2 as needed, supportive care (10) Carotid artery stenosis: 50-69% bilat on last check -follows with Cardiology outpt -holding home statin, not on ASA at home (11) Second degree atrioventricular block: with h/o such a few years ago when on atenolol; now with brief recurrence here in setting of N/V and post-op from bowel surgery No further 2nd degree blocks since day of admission -follow on tele -Cardiology consult appreciated -consider outpt monitoring after discharge (12) Anemia: hgb baseline at 10, likely secondary to cancer likely Hgb slight drop today to 9.4 from surgery blood loss -follow CBC (13) CKD (chronic kidney disease) stage 3, GFR 30-59 ml/min: 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 Still some nausea and having acid reflux. No chest pain or SOB Tele with NSR, no further second degree blocks Discussed case with Cardiology Review of Systems All systems reviewed & are unremarkable except as noted in HPI & below Physical Exam Vital Signs (Past 24 Hours): Last Vital Signs Temp 37.2 C 11/28/18 16:02 Pulse 81 11/28/18 17:04 Resp 16 11/28/18 16:02 BP 141/55 H 11/28/18 16:02 Pulse Ox 100 11/28/18 16:02 Constitutional: well developed and + ill appearing; no acute distress Eyes: PERRL, conjunctivae normal, anicteric sclerae ENMT: external ear and nose normal, oropharynx normal Neck: trachea midline, no thyromegaly Respiratory: normal respiratory effort Auscultation: + crackles (fine, in lower and middle lung kam bilat); no wheezes Cardiovascular: RRR, no murmur, no edema Gastrointestinal (Abdomen): Inspection/Auscultation: + hypoactive bowel sounds; + abdomen abnormal to inspection (large dressing in place c/d/i, RLQ ostomy bag intact without gas or stool) Percussion/Palpation: + abdomen tender (over incision site) and abdomen soft Musculoskeletal: Extremities: extremities normal to inspection; no cyanosis and no clubbing Skin: no rashes, warm and dry Neurologic: moves all extremities and awake; no focal motor deficits Psychiatric: A+Ox3, euthymic affect Genitourinary: normal external appearance (with Zepeda catheter in place) Results & Data Laboratory Results 11/28/18 11/28/18 11/28/18 Range/Units 05:48 05:48 05:48 WBC 10.12 (4.8-10.8) K/uL RBC 3.15 L (4.2-5.4) M/uL Hgb 9.4 L (12.0-16.0) g/dL Hct 29.2 L (37-47) % MCV 92.7 (80-100) fL MCH 29.8 (25-34) pg MCHC 32.2 (32-36) g/dL RDW Std Deviation 46.9 H (36.4-46.3) fL RDW Coeff of [place] 13.9 (11.5-14.5) % Plt Count 310 (130-400) K/uL MPV 9.3 (7.4-10.4) fL Immature Gran % (Auto) 0.2 % Neut % (Auto) 76.7 % Lymph % (Auto) 16.2 % [place] % (Auto) 6.7 % Eos % (Auto) 0.1 % Baso % (Auto) 0.1 % Immature Gran # (Auto) 0.02 (0.00-0.02) K/uL Neut # (Auto) 7.76 H (1.4-6.5) K/uL Lymph # (Auto) 1.64 (1.2-3.4) K/uL [place] # (Auto) 0.68 H (0.11-0.59) K/uL Eos # (Auto) 0.01 (0-0.5) K/uL Baso # (Auto) 0.01 (0-0.2) K/uL Sodium 137 (136-145) mmol/L Potassium 4.7 (3.5-5.1) mmol/L Chloride 106 (98-107) mmol/L Carbon Dioxide 26 (21-32) mmol/L Anion Gap 5.0 (3-11) BUN 17 (7-18) mg/dl Creatinine 1.23 H (0.6-1.2) mg/dl Est Cr Clr Drug Dosing 27.2 ml/min Est GFR ( Amer) 46.0 Est GFR (Non-Af Amer) 39.7 BUN/Creatinine Ratio 13.5 (10-20) Glucose 99 (70-99) mg/dl Calcium 6.8 L (8.5-10.1) mg/dl Albumin 2.2 L (3.4-5.0) gm/dl (1) Hypertension Hypertension type: essential hypertension Qualified Code(s): I10 - Essential (primary) hypertension
[2018-11-28] MEDS: METHENAMINE HIPPURATE 1 GM TAB PO SCH (22:11)
[2018-11-29] MEDS: D5W AND 1/2NSS 1,000 ML IV SCH ×2 (00:17→12:43)
[2018-11-29] MEDS: ACETAMINOPHEN 1,000 MG/100 ML VIAL IV SCH ×3 (06:05→20:44)
[2018-11-29] MEDS: HYDROmorphone HCL 0.5MG/ML 50 ML CASSETTE IV PRN ×2 (07:04→14:59)
[2018-11-29 07:09] LABS: Basophils # (auto) 0.01 K/uL (0-0.2); Basophils % (auto) 0.1 %; Eosinophils # (auto) 0.06 K/uL (0-0.5); Eosinophils % (auto) 0.7 %; Hematocrit (blood only) 26.8 % (37-47); Hemoglobin 8.7 g/dL (12.0-16.0); Immature Granulocytes # (auto) 0.02 K/uL (0.00-0.02); Immature Granulocytes % (auto) 0.2 %; Lymphocytes # (auto) 0.82 K/uL (1.2-3.4); Lymphocytes % (auto) 9.5 %; Mean Corpuscular Hgb Conc 32.5 g/dL (32-36); Mean Corpuscular Volume 92.7 fL (80-100); Mean Platelet Volume 8.9 fL (7.4-10.4); Monocytes # (auto) 0.61 K/uL (0.11-0.59); Neutrophils # (auto) 7.14 K/uL (1.4-6.5); Neutrophils % (auto) 82.5 %; Platelet Count 233 K/uL (130-400); RDW Standard Deviation 47.8 fL (36.4-46.3); Red Blood Count 2.89 M/uL (4.2-5.4); White Blood Count 8.66 K/uL (4.8-10.8)
[2018-11-29 07:37] LABS: RBC Morphology Unremarkable
[2018-11-29 07:51] LABS: Creatinine Clr Calc Pharmacy 35.5 ml/min; Est GFR (African American) 63.7; Est GFR (Non-African American) 54.9; Magnesium 1.4 mg/dl (1.8-2.4); Phosphorus 1.6 mg/dl (2.5-4.9); Potassium 3.8 mmol/L (3.5-5.1)
[2018-11-29] MEDS ORDERED: POTASSIUM PHOS 3 MMOL/1 ML INFUSION IV STA (08:20)
[2018-11-29] MEDS ORDERED: POTASSIUM PHOSPHATE 21 MMOL in SODIUM CHLORIDE 0.9% 500 ML IV ONE (09:00)
[2018-11-29] MEDS: MAGNESIUM SULFATE / D5W 1 GM/100 ML BAG IV SCH ×2 (09:07→10:23)
[2018-11-29] MEDS: GABAPENTIN 300 MG CAP PO SCH ×2 (09:08→20:42)
[2018-11-29] MEDS: ENOXAPARIN INJ 30 MG/0.3 ML SYR SQ SCH (09:08)
[2018-11-29] MEDS: TIMOLOL MALEATE 0.25% OP SOLN 5 ML BTL OP SCH ×2 (09:09→20:42)
[2018-11-29] MEDS: PANTOprazole 40 MG in SYRINGE 0 ML IV SCH (10:23)
[2018-11-29] MEDS: SODIUM CHLORIDE 0.9% 1000ML 1,000 ML IV SCH (10:23)
--- NOTE | 2018-11-29 11:58 | Surgery Progress Note ---
Date of Service November 29, 2018 Assessment & Plan (1) Colonic mass: POD 2 doing as expected will start clears OOB today keep hilario until moving better Subjective doing ok. would like something to drink. 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 Physical Exam Vital Signs (Past 24 Hours): Last Vital Signs Temp 37.4 C 11/29/18 11:49 Pulse 104 H 11/29/18 11:49 Resp 24 11/29/18 11:49 BP 169/72 H 11/29/18 11:49 Pulse Ox 99 11/29/18 11:49 Physical Exam: alert. nad incision looks good. FRANCINE serous
[2018-11-29] MEDS ORDERED: NURSING DECISION MEDICATION ONE (12:40)
[2018-11-29] MEDS ORDERED: SODIUM CHLORIDE 0.65% NA SOLN 45 ML (OCEAN) PRN (13:07)
--- NOTE | 2018-11-29 19:16 | Hospitalist Progress Note ---
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 Lomax. -post-op management as per Surgery -Continue pain control with Dialudid CIVIL ENGINEER IN TRAINING -antiemetics as below -Advanced to clear liquids and will await return of bowel function -drain in place (2) Nausea & vomiting: secondary to bowel surgery vs reaction to anesthesia or to morphine-now resolved -continue ZOfran prn -continue Reglan 5mg IV q6h prn as she has allergies to compazine and phenothiazides -continue IVFs but decreased to 70 mL's per hour as she is getting volume overloaded and is +6 L with crackles in the lungs -follow CBC, BMP, Mag, Phos -Continue IV Zantac for reflux symptoms (3) Hypertension: Blood pressure is elevated today. There is one isolated with systolic in the 80s which I do not believe is real -continue holding home telmisartan but will likely restart once tolerating p.o. well (4) Hyperlipidemia: -holding home statin but can restart once tolerating p.o. well (5) Glaucoma: -continue home eye drops timolol (6) Colon cancer: with mets to peritoneum, LNs, previously completed chemo with high dose 5- FU and leucovorin -Now with recurrence in bowel s/p resection -Oncology following as outpt -await pathology results here (7) GERD (gastroesophageal reflux disease): continue PPI IV -Continue IV Zantac for breakthrough symptoms-added on 11/28 (8) Interstitial cystitis: holding home Elmiron, follows with Urol -continue methanamine (9) ILD (interstitial lung disease): not on home O2, sees Pulm as outpt, unclear etiology but seemed to develop after getting chemo? -Continue O2 as needed, supportive care (10) Carotid artery stenosis: 50-69% bilat on last check -follows with Cardiology outpt -holding home statin, not on ASA at home (11) Second degree atrioventricular block: with h/o such a few years ago when on atenolol; now with brief recurrence here in setting of N/V and post-op from bowel surgery No further 2nd degree blocks since day of admission -Continue to follow on tele -Cardiology consult appreciated -consider outpt monitoring after discharge (12) Anemia: hgb baseline at 10, likely secondary to: Cancer Hgb again with a slight drop today to 8.7 from surgery blood loss -follow CBC and transfuse for hemoglobin less than 7-8 (13) CKD (chronic kidney disease) stage 3, GFR 30-59 ml/min: 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 -folow railroad car painter here--> improved today to 0.94 -holding telmisartan -avoid nephrotoxins -renally dose meds (14) Osteoporosis: w/ compression fractures known at T12, L1, L2 -follow -pain control -she gets Reclast as outpt with Rheum (15) Paroxysmal SVT (supraventricular tachycardia): With a few brief bursts of SVT on 11/29 -Replace electrolytes -Continue to monitor on telemetry (16) Hypomagnesemia: Magnesium 1.4 Replace with IV magnesium -Follow in the morning (17) Hypophosphatemia: Phosphorus low today 1.6 -Replace with IV potassium phosphorus and monitor in the morning (18) DVT prophylaxis: Lovenox SQ daily Dispo-remain on tele due to 2nd degree block and paroxysmal SVT Hospitalist service will continue to follow along Subjective Patient reports feeling better today, abdominal pain is better controlled. She denies any nausea. Denies chest pain or shortness of breath. She was started on clear liquids today and tolerated some broth. She has not had any stool or gas output in her colostomy bag. Review of Systems All systems reviewed & are unremarkable except as noted in HPI & below Physical Exam Vital Signs (Past 24 Hours): Last Vital Signs Temp 37.3 C 11/29/18 14:55 Pulse 90 11/29/18 16:00 Resp 24 11/29/18 14:55 BP 82/62 L 11/29/18 14:55 Pulse Ox 98 11/29/18 14:55 Constitutional: well developed; no acute distress Eyes: PERRL, conjunctivae normal, anicteric sclerae ENMT: external ear and nose normal, oropharynx normal Neck: trachea midline, no thyromegaly Respiratory: normal respiratory effort Auscultation: + crackles (fine, in lower and middle lung kam bilat); no wheezes Cardiovascular: RRR, no murmur, no edema Gastrointestinal (Abdomen): Inspection/Auscultation: + hypoactive bowel sounds; + abdomen abnormal to inspection (large dressing in place c/d/i, RLQ ostomy bag intact without gas or stool) Percussion/Palpation: + abdomen tender (over incision site) and abdomen soft Musculoskeletal: Extremities: extremities normal to inspection; no cyanosis and no clubbing Skin: no rashes, warm and dry Neurologic: moves all extremities and awake; no focal motor deficits Psychiatric: A+Ox3, euthymic affect Genitourinary: normal external appearance (with Zepeda catheter in place) Results & Data Laboratory Results 11/30/18 11/30/18 11/29/18 Range/Units 05:24 05:24 06:56 WBC 6.72 (4.8-10.8) K/uL RBC 2.78 L (4.2-5.4) M/uL Hgb 8.2 L (12.0-16.0) g/dL Hct 25.5 L (37-47) % MCV 91.7 (80-100) fL MCH 29.5 (25-34) pg MCHC 32.2 (32-36) g/dL RDW Std Deviation 47.0 H (36.4-46.3) fL RDW Coeff of [place] 13.9 (11.5-14.5) % Plt Count 254 (130-400) K/uL MPV 9.3 (7.4-10.4) fL Immature Gran % (Auto) 0.3 % Neut % (Auto) 75.2 % Lymph % (Auto) 16.5 % [place] % (Auto) 5.2 % Eos % (Auto) 2.7 % Baso % (Auto) 0.1 % Immature Gran # (Auto) 0.02 (0.00-0.02) K/uL Neut # (Auto) 5.05 (1.4-6.5) K/uL Lymph # (Auto) 1.11 L (1.2-3.4) K/uL [place] # (Auto) 0.35 (0.11-0.59) K/uL Eos # (Auto) 0.18 (0-0.5) K/uL Baso # (Auto) 0.01 (0-0.2) K/uL RBC Morphology Sodium Pending 137 (136-145) mmol/L Potassium Pending 3.8 D (3.5-5.1) mmol/L Chloride Pending 108 H (98-107) mmol/L Carbon Dioxide Pending 24 (21-32) mmol/L Anion Gap Pending 6.0 (3-11) BUN Pending 12 (7-18) mg/dl Creatinine Pending 0.94 (0.6-1.2) mg/dl Est Cr Clr Drug Dosing Pending 35.5 ml/min Est GFR ( Amer) Pending 63.7 Est GFR (Non-Af Amer) Pending 54.9 BUN/Creatinine Ratio Pending 13.0 (10-20) Glucose Pending 124 H (70-99) mg/dl Calcium Pending 7.0 L (8.5-10.1) mg/dl Phosphorus 1.6 L (2.5-4.9) mg/dl Magnesium 1.4 L (1.8-2.4) mg/dl 11/29/18 Range/Units 06:56 WBC 8.66 (4.8-10.8) K/uL RBC 2.89 L (4.2-5.4) M/uL Hgb 8.7 L (12.0-16.0) g/dL Hct 26.8 L (37-47) % MCV 92.7 (80-100) fL MCH 30.1 (25-34) pg MCHC 32.5 (32-36) g/dL RDW Std Deviation 47.8 H (36.4-46.3) fL RDW Coeff of [place] 14.0 (11.5-14.5) % Plt Count 233 (130-400) K/uL MPV 8.9 (7.4-10.4) fL Immature Gran % (Auto) 0.2 % Neut % (Auto) 82.5 % Lymph % (Auto) 9.5 % [place] % (Auto) 7.0 % Eos % (Auto) 0.7 % Baso % (Auto) 0.1 % Immature Gran # (Auto) 0.02 (0.00-0.02) K/uL Neut # (Auto) 7.14 H (1.4-6.5) K/uL Lymph # (Auto) 0.82 L (1.2-3.4) K/uL [place] # (Auto) 0.61 H (0.11-0.59) K/uL Eos # (Auto) 0.06 (0-0.5) K/uL Baso # (Auto) 0.01 (0-0.2) K/uL RBC Morphology Unremarkable Sodium (136-145) mmol/L Potassium (3.5-5.1) mmol/L Chloride (98-107) mmol/L Carbon Dioxide (21-32) mmol/L Anion Gap (3-11) BUN (7-18) mg/dl Creatinine (0.6-1.2) mg/dl Est Cr Clr Drug Dosing ml/min Est GFR ( Amer) Est GFR (Non-Af Amer) BUN/Creatinine Ratio (10-20) Glucose (70-99) mg/dl Calcium (8.5-10.1) mg/dl Phosphorus (2.5-4.9) mg/dl Magnesium (1.8-2.4) mg/dl (1) Hypertension Hypertension type: essential hypertension Qualified Code(s): I10 - Essential (primary) hypertension
[2018-11-29] MEDS: METHENAMINE HIPPURATE 1 GM TAB PO SCH (20:43)
[2018-11-30] MEDS: D5W AND 1/2NSS 1,000 ML IV SCH ×2 (03:18→18:02)
[2018-11-30 05:59] LABS: Basophils # (auto) 0.01 K/uL (0-0.2); Basophils % (auto) 0.1 %; Eosinophils # (auto) 0.18 K/uL (0-0.5); Eosinophils % (auto) 2.7 %; Hematocrit (blood only) 25.5 % (37-47); Hemoglobin 8.2 g/dL (12.0-16.0); Immature Granulocytes # (auto) 0.02 K/uL (0.00-0.02); Immature Granulocytes % (auto) 0.3 %; Lymphocytes # (auto) 1.11 K/uL (1.2-3.4); Lymphocytes % (auto) 16.5 %; Mean Corpuscular Hgb Conc 32.2 g/dL (32-36); Mean Corpuscular Volume 91.7 fL (80-100); Mean Platelet Volume 9.3 fL (7.4-10.4); Monocytes # (auto) 0.35 K/uL (0.11-0.59); Monocytes % (auto) 5.2 %; Neutrophils # (auto) 5.05 K/uL (1.4-6.5); Neutrophils % (auto) 75.2 %; Platelet Count 254 K/uL (130-400); RDW Coefficient of Variation 13.9 % (11.5-14.5); Red Blood Count 2.78 M/uL (4.2-5.4); White Blood Count 6.72 K/uL (4.8-10.8)
[2018-11-30 06:25] LABS: BUN Creatinine Ratio 9.8 (10-20); Calcium 7.2 mg/dl (8.5-10.1); Creatinine Clr Calc Pharmacy 40.7 ml/min; Est GFR (African American) 75.1; Est GFR (Non-African American) 64.8; Potassium 3.9 mmol/L (3.5-5.1)
[2018-11-30 06:27] LABS: RBC Morphology Unremarkable
[2018-11-30 07:08] LABS: Albumin Level 1.7 gm/dl (3.4-5.0); Magnesium 1.9 mg/dl (1.8-2.4); Phosphorus 1.6 mg/dl (2.5-4.9)
[2018-11-30] MEDS: ACETAMINOPHEN 1,000 MG/100 ML VIAL IV SCH ×3 (07:09→22:18)
[2018-11-30] MEDS ORDERED: POTASSIUM PHOS 3 MMOL/1 ML INFUSION IV STA (07:48)
[2018-11-30] MEDS ORDERED: POTASSIUM PHOSPHATE 21 MMOL in SODIUM CHLORIDE 0.9% 500 ML IV ONE (08:00)
[2018-11-30] MEDS ORDERED: MAGNESIUM SULFATE / D5W 1 GM/100 ML BAG IV ONE (08:00)
[2018-11-30] MEDS: TELMISARTAN 40 MG TAB PO SCH (09:12)
[2018-11-30] MEDS: GABAPENTIN 300 MG CAP PO SCH ×2 (09:12→22:17)
[2018-11-30] MEDS: ENOXAPARIN INJ 30 MG/0.3 ML SYR SQ SCH (09:13)
[2018-11-30] MEDS: TIMOLOL MALEATE 0.25% OP SOLN 5 ML BTL OP SCH ×2 (09:13→22:16)
[2018-11-30] MEDS: SODIUM CHLORIDE 0.9% 1000ML 1,000 ML IV SCH (09:44)
[2018-11-30] MEDS: ONDANSETRON INJ 2 MG/ML 2 ML VIAL IV PRN ×2 (11:40→18:36)
[2018-11-30] MEDS: PANTOprazole 40 MG in SYRINGE 0 ML IV SCH (11:46)
--- NOTE | 2018-11-30 13:24 | Hospitalist Progress Note ---
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 Lomax. -post-op management as per Surgery -Continue pain control with Dialudid ASSISTANT PROFESSOR OF DRAMA -antiemetics as below -continue clear liquids and will await return of bowel function -drain in place (2) Nausea & vomiting: secondary to bowel surgery vs reaction to anesthesia or to morphine-now resolved -continue ZOfran prn -continue Reglan 5mg IV q6h prn as she has allergies to compazine and phenothiazides -continue IVFs 70 mL's per hour -watch volume status as is ++I/O status -follow CBC, BMP, Mag, Phos -Continue IV Zantac for reflux symptoms (3) Hypertension: Blood pressure is persistently elevated today -restarting home telmisartan today (4) Hyperlipidemia: -restart home statin but can restart once tolerating p.o. well (5) Glaucoma: -continue home eye drops timolol (6) Colon cancer: with mets to peritoneum, LNs, previously completed chemo with high dose 5- FU and leucovorin -Now with recurrence in bowel s/p resection -Oncology following as outpt -await pathology results here (7) GERD (gastroesophageal reflux disease): continue PPI IV and increase to bid for breakthrough symptoms -Continue IV Zantac -added on 11/28 (8) Interstitial cystitis: holding home Elmiron, follows with Urol -continue methanamine (9) ILD (interstitial lung disease): not on home O2, sees Pulm as outpt, unclear etiology but seemed to develop after getting chemo? -Continue O2 as needed, supportive care (10) Carotid artery stenosis: 50-69% bilat on last check -follows with Cardiology outpt -restarting home statin, not on ASA at home (11) Second degree atrioventricular block: with h/o such a few years ago when on atenolol; now with brief recurrence here in setting of N/V and post-op from bowel surgery No further 2nd degree blocks since day of admission -Continue to follow on tele -Cardiology consult appreciated -consider outpt monitoring after discharge (12) Anemia: hgb baseline at 10, likely secondary to Colon Cancer Hgb again with a slight drop again today to 8.2 from surgery blood loss -follow CBC and transfuse for hemoglobin less than 7-8 (13) CKD (chronic kidney disease) stage 3, GFR 30-59 ml/min: 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 -folow accounts receivable 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 here--> improved today to 0.8 -ok to restart telmisartan -avoid nephrotoxins -renally dose meds (14) Osteoporosis: w/ compression fractures known at T12, L1, L2 -follow -pain control -she gets Reclast as outpt with Rheum (15) Paroxysmal SVT (supraventricular tachycardia): With a few brief bursts of SVT on 11/29 and 11/30 -Replace electrolytes -Continue to monitor on telemetry (16) Hypomagnesemia: improved with replacement -follow Mg (17) Hypophosphatemia: Phosphorus low again today 1.6 -Replace with IV potassium phosphorus and monitor in the morning (18) DVT prophylaxis: Lovenox SQ daily Dispo-remain on tele due to 2nd degree block and paroxysmal SVT Hospitalist service will continue to follow along Subjective Pain is controlled today, no putput in colostomy bag yet. Having a lot of reflux and spitting up green material in her basin. She was lying in bed eating her clears for breakfast as per RN and now is OOB to chair. Denies CP or SOB. No nausea No leg pain Tele: NSR, PVCs, burst SVT 0618, PVCs Review of Systems All systems reviewed & are unremarkable except as noted in HPI & below Physical Exam Vital Signs (Past 24 Hours): Last Vital Signs Temp 37.2 C 11/30/18 07:41 Pulse 76 11/30/18 07:41 Resp 18 11/30/18 07:41 BP 186/64 H 11/30/18 07:41 Pulse Ox 99 11/30/18 07:41 Constitutional: well developed; no acute distress Eyes: PERRL, conjunctivae normal, anicteric sclerae ENMT: external ear and nose normal, oropharynx normal Neck: trachea midline, no thyromegaly Respiratory: normal respiratory effort Auscultation: + crackles (fine, in lower and middle lung kam bilat); no wheezes Cardiovascular: RRR, no murmur, no edema Gastrointestinal (Abdomen): Inspection/Auscultation: + hypoactive bowel sounds; + abdomen abnormal to inspection (large dressing in place c/d/i, RLQ ostomy bag intact without gas or stool) Percussion/Palpation: + abdomen tender (over incision site) and abdomen soft Musculoskeletal: Extremities: extremities normal to inspection; no cyanosis and no clubbing Skin: no rashes, warm and dry Neurologic: moves all extremities and awake; no focal motor deficits Psychiatric: A+Ox3, euthymic affect Genitourinary: normal external appearance (with Zepeda catheter in place) Results & Data Laboratory Results 11/30/18 11/30/18 11/30/18 Range/Units 05:24 05:24 05:24 WBC 6.72 (4.8-10.8) K/uL RBC 2.78 L (4.2-5.4) M/uL Hgb 8.2 L (12.0-16.0) g/dL Hct 25.5 L (37-47) % MCV 91.7 (80-100) fL MCH 29.5 (25-34) pg MCHC 32.2 (32-36) g/dL RDW Std Deviation 47.0 H (36.4-46.3) fL RDW Coeff of [place] 13.9 (11.5-14.5) % Plt Count 254 (130-400) K/uL MPV 9.3 (7.4-10.4) fL Immature Gran % (Auto) 0.3 % Neut % (Auto) 75.2 % Lymph % (Auto) 16.5 % [place] % (Auto) 5.2 % Eos % (Auto) 2.7 % Baso % (Auto) 0.1 % Immature Gran # (Auto) 0.02 (0.00-0.02) K/uL Neut # (Auto) 5.05 (1.4-6.5) K/uL Lymph # (Auto) 1.11 L (1.2-3.4) K/uL [place] # (Auto) 0.35 (0.11-0.59) K/uL Eos # (Auto) 0.18 (0-0.5) K/uL Baso # (Auto) 0.01 (0-0.2) K/uL RBC Morphology Unremarkable Sodium 138 (136-145) mmol/L Potassium 3.9 (3.5-5.1) mmol/L Chloride 109 H (98-107) mmol/L Carbon Dioxide 26 (21-32) mmol/L Anion Gap 3.0 (3-11) BUN 8 (7-18) mg/dl Creatinine 0.82 (0.6-1.2) mg/dl Est Cr Clr Drug Dosing 40.7 ml/min Est GFR ( Amer) 75.1 Est GFR (Non-Af Amer) 64.8 BUN/Creatinine Ratio 9.8 L (10-20) Glucose 99 (70-99) mg/dl Calcium 7.2 L (8.5-10.1) mg/dl Phosphorus 1.6 L (2.5-4.9) mg/dl Magnesium 1.9 (1.8-2.4) mg/dl Albumin 1.7 L (3.4-5.0) gm/dl (1) Hypertension Hypertension type: essential hypertension Qualified Code(s): I10 - Essential (primary) hypertension
[2018-11-30] MEDS ORDERED: LIDOCAINE HCL 2% VISCOUS 60 ML, DiphenhydrAMINE Syrup 150 MG, ALUMINUM/MAGNESIUM SUSP 6... MT PRN (17:16)
--- NOTE | 2018-11-30 17:27 | Surgery Progress Note ---
Date of Service November 30, 2018 Assessment & Plan (1) Colonic mass: POD 3 doing as expected pt very high risk of infection will add clindamycin empirically will start physical therapy awaiting return of bowel fx Subjective pt feeling a little better today. main issue is acid reflux. some spitting up of acid today. pain improving. Physical Exam Vital Signs (Past 24 Hours): Last Vital Signs Temp 37.6 C H 11/30/18 13:31 Pulse 80 11/30/18 15:10 Resp 19 11/30/18 15:10 BP 170/72 H 11/30/18 15:10 Pulse Ox 95 11/30/18 15:10 Physical Exam: alert. nad abd: soft. incision c/d/i. FRANCINE 20 cc's /shift. serous. stoma pink, no output yet
[2018-11-30] MEDS: CLINDAMYCIN 600 MG in DEXTROSE 5% 50 ML IV SCH (18:01)
[2018-11-30] MEDS ORDERED: Nursing to Pharmacy Communication ONE (18:45)
[2018-11-30] MEDS: HYDROmorphone HCL 0.5MG/ML 50 ML CASSETTE IV PRN (19:08)
[2018-11-30] MEDS: METOCLOPRAMIDE HCL INJ 5 MG/ML 2 ML VIAL IV PRN (20:00)
[2018-11-30] MEDS ORDERED: PANTOprazole 40 MG in SYRINGE 0 ML IV SCH (21:00)
[2018-11-30] MEDS: ATORVASTATIN 10 MG TAB PO SCH (22:17)
[2018-11-30] MEDS: METHENAMINE HIPPURATE 1 GM TAB PO SCH (22:17)
[2018-11-30] MEDS: OMEPRAZOLE 20 MG PO SCH (22:18)
[2018-12-01] MEDS: ONDANSETRON INJ 2 MG/ML 2 ML VIAL IV PRN ×2 (00:26→05:36)
[2018-12-01] MEDS: CLINDAMYCIN 600 MG in DEXTROSE 5% 50 ML IV SCH ×3 (01:55→17:40)
[2018-12-01] MEDS: METOCLOPRAMIDE HCL INJ 5 MG/ML 2 ML VIAL IV PRN ×2 (03:51→13:51)
[2018-12-01] MEDS: ACETAMINOPHEN 1,000 MG/100 ML VIAL IV SCH ×3 (05:36→22:07)
[2018-12-01 05:51] LABS: Basophils # (auto) 0.01 K/uL (0-0.2); Basophils % (auto) 0.1 %; Eosinophils # (auto) 0.08 K/uL (0-0.5); Eosinophils % (auto) 1.1 %; Hematocrit (blood only) 29.7 % (37-47); Hemoglobin 9.6 g/dL (12.0-16.0); Immature Granulocytes # (auto) 0.02 K/uL (0.00-0.02); Immature Granulocytes % (auto) 0.3 %; Lymphocytes # (auto) 0.89 K/uL (1.2-3.4); Lymphocytes % (auto) 12.7 %; Mean Corpuscular Hgb Conc 32.3 g/dL (32-36); Mean Corpuscular Volume 91.7 fL (80-100); Mean Platelet Volume 9.1 fL (7.4-10.4); Monocytes % (auto) 7.1 %; Neutrophils # (auto) 5.51 K/uL (1.4-6.5); Neutrophils % (auto) 78.7 %; Platelet Count 324 K/uL (130-400); RDW Coefficient of Variation 13.8 % (11.5-14.5); RDW Standard Deviation 46.3 fL (36.4-46.3); Red Blood Count 3.24 M/uL (4.2-5.4); White Blood Count 7.01 K/uL (4.8-10.8)
[2018-12-01 06:22] LABS: BUN Creatinine Ratio 9.7 (10-20); Calcium 7.4 mg/dl (8.5-10.1); Creatinine Clr Calc Pharmacy 41.2 ml/min; Est GFR (African American) 76.2; Est GFR (Non-African American) 65.8; Magnesium 1.9 mg/dl (1.8-2.4); Potassium 3.7 mmol/L (3.5-5.1)
[2018-12-01 06:31] LABS: Phosphorus 2.6 mg/dl (2.5-4.9)
[2018-12-01] MEDS: ENOXAPARIN INJ 30 MG/0.3 ML SYR SQ SCH (07:44)
[2018-12-01] MEDS: TELMISARTAN 40 MG TAB PO SCH (07:45)
[2018-12-01] MEDS: GABAPENTIN 300 MG CAP PO SCH ×2 (07:45→20:02)
[2018-12-01] MEDS: TIMOLOL MALEATE 0.25% OP SOLN 5 ML BTL OP SCH ×2 (07:46→20:03)
[2018-12-01] MEDS: OMEPRAZOLE 20 MG PO SCH ×2 (07:46→20:02)
--- NOTE | 2018-12-01 09:23 | Surgery Progress Note ---
Date of Service December 01, 2018 Assessment & Plan (1) Colonic mass: POD 4 extensive LISA, expect slow return of bowel fx recommend NG but she wants to wait can have sips labs stable if not improving by tomorrow consider NG & TPN seen with Dr. Lomax as above. no acute issues. expected post op course at this point Subjective had some jello yesterday, today some nausea, bloated Physical Exam Vital Signs (Past 24 Hours): Last Vital Signs Temp 37.2 C 12/01/18 07:58 Pulse 83 12/01/18 07:58 Resp 16 12/01/18 07:58 BP 186/94 H 12/01/18 07:58 Pulse Ox 95 12/01/18 07:58 Gastrointestinal (Abdomen): Inspection/Auscultation: + abdomen distended (mildly, no ostomy output) and + abdominal surgical incision (no erythema, minimal drainage) FRANCINE 5 cc serous
[2018-12-01] MEDS: SODIUM CHLORIDE 0.9% 1000ML 1,000 ML IV SCH (12:04)
[2018-12-01] MEDS: D5W AND 1/2NSS 1,000 ML IV SCH (14:42)
[2018-12-01] MEDS: HydrALAZINE HCL 20 MG/ML VIAL IV PRN (15:53)
--- NOTE | 2018-12-01 18:15 | Hospitalist Progress Note ---
Date of Service December 01, 2018 Assessment & Plan (1) History of bowel resection: S/p ex-lap, left hemicolectomy, and small bowel resection with Dr. Lomax on 11/27. - Continues to have slow colonic recovery. - Declined NG tube on 12/01; will reconsider tomorrow - Diet per primary team - Post-op care per primary team (2) Nausea & vomiting: Secondary to bowel surgery vs. operative meds. - Continue Zofran prn - Continue Reglan 5mg IV q6h PRN (3) Hypertension: Blood pressure was persistently elevated on 12/01. - Restarted home telmisartan on 12/01. - Monitor (4) Hyperlipidemia: Restart home statin as able (5) Glaucoma: - Continue home eye drops timolol (6) Colon cancer: with mets to peritoneum, LNs, previously completed chemo with high dose 5- FU and leucovorin - Now with recurrence in bowel s/p resection - Oncology following as outpt - Await pathology results here (7) GERD (gastroesophageal reflux disease): continue PPI IV and increase to bid for breakthrough symptoms - Continue IV Zantac - added on 11/28 (8) Interstitial cystitis: Holding home Elmiron, follows with Urol - Continue methanamine (9) ILD (interstitial lung disease): not on home O2, sees Pulm as outpt, unclear etiology but seemed to develop after getting chemo? - Continue O2 as needed, supportive care (10) Carotid artery stenosis: 50-69% bilat on last check -follows with Cardiology outpt -restarting home statin, not on ASA at home (11) Second degree atrioventricular block: with h/o such a few years ago when on atenolol; now with brief recurrence here in setting of N/V and post-op from bowel surgery No further 2nd degree blocks since day of admission -Continue to follow on tele -Cardiology consult appreciated -consider outpt monitoring after discharge (12) Anemia: hgb baseline at 10, likely secondary to Colon Cancer Hgb again with a slight drop again today to 8.2 from surgery blood loss -follow CBC and transfuse for hemoglobin less than 7-8 (13) CKD (chronic kidney disease) stage 3, GFR 30-59 ml/min: intensive care unit registered nurse baseline around 1.2-1.2 -folow intensive care unit registered nurse here--> improved today to 0.8 -ok to restart telmisartan -avoid nephrotoxins -renally dose meds (14) Osteoporosis: w/ compression fractures known at T12, L1, L2 -follow -pain control -she gets Reclast as outpt with Rheum (15) Paroxysmal SVT (supraventricular tachycardia): With a few brief bursts of SVT on 11/29 and 11/30. - Replaced electrolytes - Continue to monitor on telemetry (16) DVT prophylaxis: Lovenox SQ daily Hospitalist service will continue to follow along Subjective 88yo F w/ hx of colon mass who presents as a medical consult after ex-lap, left hemicolectomy, and small bowel resection with Dr. Lomax on 11/27. Pain is controlled today, but no contents in colostomy bag yet. Nausea improved. Reports no fevers/chills, chest pain, shortness of breath. Physical Exam Vital Signs (Past 24 Hours): Last Vital Signs Temp 37.1 C 12/01/18 15:15 Pulse 97 H 12/01/18 16:35 Resp 18 12/01/18 16:35 BP 171/81 H 12/01/18 16:35 Pulse Ox 94 12/01/18 16:35 Constitutional: well developed; no acute distress Eyes: PERRL, conjunctivae normal, anicteric sclerae ENMT: external ear and nose normal, oropharynx normal Neck: trachea midline, no thyromegaly Respiratory: normal respiratory effort Auscultation: + crackles (fine, in lower and middle lung kam bilat); no wheezes Cardiovascular: RRR, no murmur, no edema Gastrointestinal (Abdomen): Inspection/Auscultation: + hypoactive bowel sounds; + abdomen abnormal to inspection (large dressing in place c/d/i, RLQ ostomy bag intact without gas or stool) Percussion/Palpation: + abdomen tender (over incision site) and abdomen soft Musculoskeletal: Extremities: extremities normal to inspection; no cyanosis and no clubbing Skin: no rashes, warm and dry Neurologic: moves all extremities and awake; no focal motor deficits Psychiatric: A+Ox3, euthymic affect Genitourinary: normal external appearance (with Zepeda catheter in place) (1) Hypertension Hypertension type: essential hypertension Qualified Code(s): I10 - Essential (primary) hypertension
[2018-12-01] MEDS: HYDROmorphone HCL 0.5MG/ML 50 ML CASSETTE IV PRN ×2 (18:53→23:11)
[2018-12-01] MEDS: METHENAMINE HIPPURATE 1 GM TAB PO SCH (20:02)
[2018-12-01] MEDS: ATORVASTATIN 10 MG TAB PO SCH (20:02)
[2018-12-02] MEDS: CLINDAMYCIN 600 MG in DEXTROSE 5% 50 ML IV SCH ×2 (02:07→10:30)
[2018-12-02] MEDS: ACETAMINOPHEN 1,000 MG/100 ML VIAL IV SCH ×3 (05:36→21:01)
[2018-12-02] MEDS: D5W AND 1/2NSS 1,000 ML IV SCH (06:15)
[2018-12-02 06:58] LABS: BUN Creatinine Ratio 11.5 (10-20); Calcium 7.2 mg/dl (8.5-10.1); Creatinine Clr Calc Pharmacy 45.1 ml/min; Est GFR (Non-African American) 73.4; Potassium 3.7 mmol/L (3.5-5.1)
[2018-12-02] MEDS: HYDROmorphone HCL 0.5MG/ML 50 ML CASSETTE IV PRN ×2 (07:04→19:16)
--- NOTE | 2018-12-02 08:18 | Surgery Progress Note ---
Date of Service December 02, 2018 Assessment & Plan (1) Colonic mass: POD 5 extensive LISA, bowel function returning can try clamping NG increase activity as above. clinically improving +stoma out put would keep NGT one more day will start some PPN continue to encourage increased activity pain control adequate FRANCINE serous Subjective NG placed yesterday, feeling better today, some ostomy output Physical Exam Vital Signs (Past 24 Hours): Last Vital Signs Temp 37.1 C 12/02/18 07:09 Pulse 79 12/02/18 07:09 Resp 19 12/02/18 07:09 BP 164/63 H 12/02/18 07:09 Pulse Ox 97 12/02/18 07:09 Gastrointestinal (Abdomen): Inspection/Auscultation: + abdominal surgical incision (some drainage, no erythema); abdomen not distended Percussion/Palpation: abdomen soft FRANCINE 5 serous UOP 675 NG 150
[2018-12-02] MEDS: TIMOLOL MALEATE 0.25% OP SOLN 5 ML BTL OP SCH ×2 (08:58→20:58)
[2018-12-02] MEDS: ENOXAPARIN INJ 30 MG/0.3 ML SYR SQ SCH (08:58)
[2018-12-02] MEDS: TELMISARTAN 40 MG TAB PO SCH (08:58)
[2018-12-02] MEDS: GABAPENTIN 300 MG CAP PO SCH ×2 (08:59→20:54)
[2018-12-02] MEDS: OMEPRAZOLE 20 MG PO SCH ×2 (08:59→20:55)
[2018-12-02] MEDS ORDERED: TPN/PPN CONSULT PHARMACY PRN (09:15)
[2018-12-02] MEDS: SODIUM CHLORIDE 0.9% 1000ML 1,000 ML IV SCH ×2 (12:24→17:26)
[2018-12-02] MEDS: HydrALAZINE HCL 20 MG/ML VIAL IV PRN (12:27)
[2018-12-02] MEDS ORDERED: TPN/PPN CONSULT PHARMACY STA (13:13)
--- NOTE | 2018-12-02 13:59 | Pharmacy Report ---
Pharmacy PN Initial Consult - Date of Service December 02, 2018 - Scope Pharmacy has been consulted to manage parenteral nutrition orders and order appropriate labs. As part of the Nutrition Support Team guidelines, pharmacy will work in conjunction with dietary when determining the patients caloric needs. - Subjective The patient is a 88 year old F admitted on 11/27/18 10:35 for colon mass. Patient is to receive parenteral nutrition for slow return of bowel function, 5 days of inadequate PO intake following L hemicolectomy, partial sm bowel resection, with LISA. Pertinent PMH: * colon CA * prior h/o transverse colon resection * diastolic HF * CKD3 * hyperlipidemia * folate deficiency - Objective Height: 5 ft 3 in Weight: 61.8 kg Diet: NPO Vascular Access:: peripheral only Intake & Output (Last 24Hrs): Intake & Output 11/30/18 12/01/18 12/02/18 12/03/18 06:59 06:59 06:59 06:59 Intake Total 3965.400 / 3965.400 3942.667 / 3942.667 2597.5 / 2597.5 54 / 54 Output Total 2485 / 2485 2470 / 2470 2250 / 2250 Balance 1480.400 / 4150.270 6953.667 / 1472.667 347.5 / 347.5 54 / 54 Weight 61.2 kg 61.7 kg 61.8 kg 61.8 kg Additional Fluid Losses/Gains:: NGT to LIS FRANCINE drain Laboratory Data (Last 24 Hrs):: 12/02/18 05:47 Sodium 135 L Potassium 3.7 Chloride 104 Carbon Dioxide 25 BUN 8 Creatinine 0.74 Glucose 94 Calcium 7.2 L Recent Pertinent Medications:: Ondansetron PRN Metocloperamide PRN Ranitidine IV scheduled Omeprazole PO scheduled D5 1/2NS @ 50cc/hr Nutrition Assessment:: Please refer to the Notes section of the EMR for the most 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 - Assessment Patient admitted for mass of colon. On 11/27 patient had L hemicolectomy, sm bowel resection and LISA. She has had inadequate PO intake since admission. She only has peripheral access at this time. Volume of PPN will be limited to 1800mL (~29cc/kg/day) due to her age, h/o diastolic HF and underlying CKD3. Volume of PPN was discussed with both Hospitalist and Surgery teams. Per provider's assessments: no edema, + crackles bilaterally. No CXR this admit. However pt oxygenating well on room air. VSS. U.O. adequate. Was not using diuretics prior to admission. E-lytes reviewed, no supplementation required today. However mild hyponatremia present. Will provide ~1mEq/kg/day of Na+ in today's bag however I feel she may be at risk for worsening hyponatremia due to NGT to LIS and large amount of free water in PPN. Hypophosphatemia present on labs 2 days ago, she may be at risk for low phos w/ nutrition support. Will provide 0.3mmol/kg in today's bag and follow phos daily. If pt's nutrition goals cannot be met w/ enteral intake by day # 7 post-op, please consider placing central line for TPN provision as PPN may only be able to provide ~ 40-50% of needs at best. - Plan For day 1 of PN administration, the following will be ordered: Macronutrients Amino acids 42 grams/day Dextrose 100 grams/day Lipids 25 grams/day Micronutrients Combined electrolytes 0 mL - contains 35 mEq Na, 20 meq K, 4.5 mEq Ca, 5 mEq Mg, 35 mEq Cl, 29.5 mEq acetate per 20 mL Sodium phosphate 0 MMol Sodium chloride 45 mEq Sodium acetate 0 mEq Potassium phosphate 21 mMol Potassium chloride 14 mEq Potassium acetate 0 mEq Magnesium sulfate 4.06 mEq Calcium gluconate 0 mEq Multivitamins 10 mL Trace Elements 1 mL Additional additives: n/a Total volume 1800 mL to be infused over 24 hrs will provide 758 kcal/day Final osmolarity ~599 mOsm/L (maximum for PPN is 600 mOsm/L) Labs to be ordered per PN order protocol Pharmacy will follow and adjust parenteral nutrition orders on a daily basis. Thank you.
[2018-12-02] MEDS ORDERED: CUSTOM PERIPHERAL PN IV SCH (16:00)
[2018-12-02] MEDS ORDERED: [UNRECOGNIZED DRUG - REMARK] ONE (16:00)
--- NOTE | 2018-12-02 16:41 | Hospitalist Progress Note ---
Date of Service December 02, 2018 Assessment & Plan (1) History of bowel resection: S/p ex-lap, left hemicolectomy, and small bowel resection with Dr. Lomax on 11/27. - Continues to have slow colonic recovery. - Received NG tube on 12/01 - Diet per primary team - TPN initiated for a few days per primary team - Post-op care per primary team (2) Nausea & vomiting: Secondary to bowel surgery vs. operative meds. - Continue Zofran prn - Continue Reglan 5mg IV q6h PRN (3) Hypertension: Blood pressure was persistently elevated on 11/30. - Restarted home telmisartan on 11/30. - Monitor (4) Hyperlipidemia: Restart home statin as able (5) Glaucoma: - Continue home eye drops timolol (6) Colon cancer: With mets to peritoneum, LNs, previously completed chemo with high dose 5- FU and leucovorin. - Now with recurrence in bowel s/p resection - Oncology following as outpt - Await pathology results here (7) GERD (gastroesophageal reflux disease): Continue PPI PO and increased to BID on 11/30 for breakthrough symptoms. - Continue IV Zantac - added on 11/28 (8) Interstitial cystitis: Holding home Elmiron, follows with urology. - Continue methanamine. (9) ILD (interstitial lung disease): Not on home O2, sees Pulm as outpt, unclear etiology but seemed to develop after getting chemo? - Continue O2 as needed, supportive care (10) Carotid artery stenosis: 50-69% bilat on last check. - Follows with Cardiology outpatient - Restarting home statin as able, not on ASA at home. 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 No further 2nd degree blocks since day of admission. - Continue to follow on tele - Cardiology consult appreciated. - consider outpatient monitoring after discharge. (12) Anemia: Hgb baseline at 10, likely secondary to Colon Cancer Hgb again with a slight drop again today to 8.2 from surgery blood loss -follow CBC and transfuse for hemoglobin less than 7-8 (13) CKD (chronic kidney disease) stage 3, GFR 30-59 ml/min: Cr baseline ~0.8. - As of 12/02, Cr at baseline at 0.8. (14) Paroxysmal SVT (supraventricular tachycardia): With a few brief bursts of SVT on 11/29 and 11/30. - Replaced electrolytes - Continue to monitor on telemetry (15) DVT prophylaxis: Lovenox SQ daily Hospitalist service will continue to follow along. Subjective 88yo F w/ hx of colon mass who presents as a medical consult after ex-lap, left hemicolectomy, and small bowel resection with Dr. Lmoax on 11/27. Pain is improved today, with BM and gas in the colostomy bag. Nausea improved. Reports no fevers/chills, chest pain, shortness of breath. Physical Exam Vital Signs (Past 24 Hours): Last Vital Signs Temp 37.9 C H 12/02/18 15:21 Pulse 109 H 12/02/18 15:21 Resp 21 12/02/18 15:21 BP 153/53 H 12/02/18 15:21 Pulse Ox 97 12/02/18 15:21 Constitutional: well developed; no acute distress Eyes: PERRL, conjunctivae normal, anicteric sclerae ENMT: external ear and nose normal, oropharynx normal Neck: trachea midline, no thyromegaly Respiratory: normal respiratory effort Auscultation: no wheezes Cardiovascular: RRR, no murmur, no edema Gastrointestinal (Abdomen): Inspection/Auscultation: + hypoactive bowel sounds; + abdomen abnormal to inspection (large dressing in place c/d/i, RLQ ostomy bag intact without gas or stool) Percussion/Palpation: + abdomen tender (over incision site) and abdomen soft Musculoskeletal: Extremities: extremities normal to inspection; no cyanosis and no clubbing Skin: no rashes, warm and dry Neurologic: moves all extremities and awake; no focal motor deficits Genitourinary: normal external appearance (with Zepeda catheter in place) (1) Hypertension Hypertension type: essential hypertension Qualified Code(s): I10 - Essential (primary) hypertension
[2018-12-02] MEDS: ATORVASTATIN 10 MG TAB PO SCH (20:54)
[2018-12-02] MEDS: METHENAMINE HIPPURATE 1 GM TAB PO SCH (20:57)
[2018-12-03] MEDS: ACETAMINOPHEN 1,000 MG/100 ML VIAL IV SCH ×3 (05:41→21:53)
[2018-12-03] MEDS: METOCLOPRAMIDE HCL INJ 5 MG/ML 2 ML VIAL IV PRN (05:47)
[2018-12-03 07:19] LABS: Basophils # (auto) 0.01 K/uL (0-0.2); Basophils % (auto) 0.2 %; Eosinophils # (auto) 0.11 K/uL (0-0.5); Eosinophils % (auto) 1.7 %; Hematocrit (blood only) 24.4 % (37-47); Immature Granulocytes # (auto) 0.04 K/uL (0.00-0.02); Immature Granulocytes % (auto) 0.6 %; Lymphocytes # (auto) 0.79 K/uL (1.2-3.4); Mean Corpuscular Hgb Conc 32.8 g/dL (32-36); Mean Corpuscular Volume 90.7 fL (80-100); Mean Platelet Volume 8.9 fL (7.4-10.4); Monocytes # (auto) 0.67 K/uL (0.11-0.59); Monocytes % (auto) 10.2 %; Neutrophils # (auto) 4.96 K/uL (1.4-6.5); Neutrophils % (auto) 75.3 %; Platelet Count 298 K/uL (130-400); RDW Coefficient of Variation 13.8 % (11.5-14.5); RDW Standard Deviation 45.6 fL (36.4-46.3); Red Blood Count 2.69 M/uL (4.2-5.4); White Blood Count 6.58 K/uL (4.8-10.8)
[2018-12-03 07:49] LABS: RBC Morphology Unremarkable
[2018-12-03 07:50] LABS: BUN Creatinine Ratio 20.8 (10-20); Calcium 7.1 mg/dl (8.5-10.1); Creatinine Clr Calc Pharmacy 45.3 ml/min; Est GFR (African American) 77.4; Est GFR (Non-African American) 66.8; Magnesium 1.8 mg/dl (1.8-2.4); Potassium 3.7 mmol/L (3.5-5.1)
[2018-12-03 07:59] LABS: Phosphorus 3.4 mg/dl (2.5-4.9)
[2018-12-03] MEDS ORDERED: SODIUM CHLORIDE 0.9% 250 ML IV PRN ×2 (08:37→09:07)
--- NOTE | 2018-12-03 08:37 | Surgery Progress Note ---
Date of Service December 03, 2018 Assessment & Plan (1) Colonic mass: POD 6 will d/c hilario PPN started encourage better participation in PT transfuse 1 unit PRBC's clamping trial of NGT Subjective pt doing about the same. appears somewhat washout. admits to some nausea. has been using her qa auditor a fair amount Physical Exam Vital Signs (Past 24 Hours): Last Vital Signs Temp 37.1 C 12/03/18 07:45 Pulse 88 12/03/18 07:45 Resp 16 12/03/18 07:45 BP 145/54 H 12/03/18 07:45 Pulse Ox 94 12/03/18 07:45 Physical Exam: alert. nad abd: soft. incision looks ok. FRANCINE scant/serous. stoma functioning NGT: mostly clear /likely ice chips.
[2018-12-03] MEDS: OMEPRAZOLE 20 MG PO SCH ×2 (08:45→20:21)
[2018-12-03] MEDS: TELMISARTAN 40 MG TAB PO SCH (08:45)
[2018-12-03] MEDS: GABAPENTIN 300 MG CAP PO SCH ×2 (08:45→20:21)
[2018-12-03] MEDS: ENOXAPARIN INJ 30 MG/0.3 ML SYR SQ SCH (08:45)
[2018-12-03] MEDS: TIMOLOL MALEATE 0.25% OP SOLN 5 ML BTL OP SCH ×2 (08:46→20:21)
[2018-12-03] MEDS: SODIUM CHLORIDE 0.9% 1000ML 1,000 ML IV SCH ×2 (12:03→20:50)
--- NOTE | 2018-12-03 14:07 | Hospitalist Progress Note ---
Date of Service December 03, 2018 Assessment & Plan (1) History of bowel resection: S/p ex-lap, left hemicolectomy, and small bowel resection with Dr. Lomax on 11/27. - Continues to have slow colonic recovery. - Received NG tube on 12/01 - Diet per primary team - TPN initiated for a few days per primary team - Clamped tube and consider clears on 12/03 - Post-op care per primary team (2) Nausea & vomiting: Secondary to bowel surgery vs. operative meds. - Continue Zofran PRN - Continue Reglan 5mg IV q6h PRN (3) Hypertension: Blood pressure was persistently elevated on 11/30. - Restarted home telmisartan on 11/30. - As of 12/03, BP in acceptable range (~160/70) (4) Hyperlipidemia: Restart home statin as able (5) Glaucoma: - Continue home eye drops timolol (6) Colon cancer: With mets to peritoneum & lymph nodes. Previously completed chemo with high dose 5-FU and leucovorin. 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 - Continue IV Zantac - added on 11/28 (8) Interstitial cystitis: Holding home Elmiron, follows with urology. - Continue methanamine. (9) ILD (interstitial lung disease): Not on home O2, sees Pulm as outpt, unclear etiology but seemed to develop after getting chemo? - Continue O2 as needed, supportive care (10) Carotid artery stenosis: 50-69% bilat on last check. - Follows with Cardiology outpatient - Restarting home statin as able, not on ASA at home. 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 No further 2nd degree blocks since day of admission. - Continue to follow on tele - Cardiology consult appreciated. (12) Anemia: Hgb baseline at 10, likely secondary to colon cancer. - Hgb down to 8.0 on 12/03; down from 9.6 on 12/01. - Received 1 unit PRBCs on 12/03 per primary team (13) CKD (chronic kidney disease) stage 3, GFR 30-59 ml/min: Cr baseline ~0.8. - As of 12/03, Cr at baseline at 0.8. (14) Paroxysmal SVT (supraventricular tachycardia): With a few brief bursts of SVT on 11/29 and 11/30. - Replaced electrolytes - Continue to monitor on telemetry (15) DVT prophylaxis: Lovenox SQ daily Hospitalist service will continue to follow along. Subjective 88yo F w/ hx of colon mass who presents as a medical consult after ex-lap, left hemicolectomy, and small bowel resection with Dr. Lomax on 11/27. Pain is improved today, still with BM and gas in the colostomy bag. Nausea improved. Will clamp tube and try clears. Reports no fevers/chills, chest pain, shortness of breath. Physical Exam Vital Signs (Past 24 Hours): Last Vital Signs Temp 37.6 C H 12/03/18 13:01 Pulse 87 12/03/18 13:01 Resp 20 12/03/18 13:01 BP 161/67 H 12/03/18 13:01 Pulse Ox 96 12/03/18 13:01 Constitutional: well developed; no acute distress Eyes: PERRL, conjunctivae normal, anicteric sclerae ENMT: external ear and nose normal, oropharynx normal Neck: trachea midline, no thyromegaly Respiratory: normal respiratory effort Auscultation: no wheezes Cardiovascular: RRR, no murmur, no edema Gastrointestinal (Abdomen): Inspection/Auscultation: + hypoactive bowel sounds; + abdomen abnormal to inspection (RLQ ostomy bag intact with some gas & stool) Percussion/Palpation: abdomen soft; abdomen nontender Musculoskeletal: Extremities: extremities normal to inspection; no cyanosis and no clubbing Skin: no rashes, warm and dry Neurologic: moves all extremities and awake; no focal motor deficits Psychiatric: A+Ox3, euthymic affect Genitourinary: normal external appearance (with Zepeda catheter in place) (1) Hypertension Hypertension type: essential hypertension Qualified Code(s): I10 - Essential (primary) hypertension
[2018-12-03] MEDS ORDERED: CUSTOM PERIPHERAL PN IV SCH (16:00)
[2018-12-03] MEDS: HydrALAZINE HCL 20 MG/ML VIAL IV PRN (16:41)
[2018-12-03] MEDS: ATORVASTATIN 10 MG TAB PO SCH (20:21)
[2018-12-03] MEDS: METHENAMINE HIPPURATE 1 GM TAB PO SCH (20:21)
[2018-12-03] MEDS ORDERED: Nursing to Pharmacy Communication ONE (20:34)
[2018-12-04] MEDS ORDERED: PHENAZOPYRIDINE HCL 200 MG TAB PO STA (01:34)
[2018-12-04 01:55] LABS: Appearance Urine Clear (Clear); Bilirubin Urine Negative (Negative); Blood Urine 1+ (Negative); Color Urine Yellow; Glucose Urine UA Negative (Negative); Ketones Urine Negative (Negative); Leukocyte Esterase Urine 3+ (Negative); Nitrite Urine Negative (Negative); Protein Urine Negative (Negative); Specific Gravity Urine 1.007 (1.000-1.030); Urobilinogen Urine Negative (Negative); pH Urine 6.5 (4.5-7.5)
[2018-12-04 02:15] LABS: Bacteria Urine 3+ (Negative); RBC Urine 0-4 /hpf (0-4); WBC Urine >30 /hpf (0-5)
[2018-12-04] MEDS ORDERED: KEFLEX~PHARMACY CONSULT IN PROGRESS PRN (02:51)
[2018-12-04] MEDS: ACETAMINOPHEN 1,000 MG/100 ML VIAL IV SCH ×3 (05:56→21:46)
[2018-12-04 06:38] LABS: BUN Creatinine Ratio 20.6 (10-20); Calcium 7.4 mg/dl (8.5-10.1); Creatinine Clr Calc Pharmacy 42.3 ml/min; Est GFR (African American) 78.6; Est GFR (Non-African American) 67.8; Potassium 3.7 mmol/L (3.5-5.1)
[2018-12-04 06:41] LABS: Phosphorus 2.8 mg/dl (2.5-4.9)
[2018-12-04] MEDS: GABAPENTIN 300 MG CAP PO SCH ×2 (08:23→21:20)
[2018-12-04] MEDS: ENOXAPARIN INJ 30 MG/0.3 ML SYR SQ SCH (08:24)
[2018-12-04] MEDS: cephALEXin 250 MG CAP PO SCH ×2 (08:24→13:14)
[2018-12-04] MEDS: OMEPRAZOLE 20 MG PO SCH ×2 (08:25→21:20)
[2018-12-04] MEDS: TELMISARTAN 40 MG TAB PO SCH (08:25)
[2018-12-04] MEDS: TIMOLOL MALEATE 0.25% OP SOLN 5 ML BTL OP SCH ×2 (08:26→21:21)
--- NOTE | 2018-12-04 09:02 | Cardiology Progress Note ---
Date of Service December 04, 2018 Assessment & Plan (1) Second degree AV block: She was noted to have a brief episode of second degree AV block with 2:1 conduction on the evening of 11/27/2018 at 17:49 on telemetry monitoring. She was reportedly vomiting/dry heaving around this time, therefore, the arrhythmia was likely vasovagal in nature. She has now remained on telemetry for 1 week, she has had no recurrence of second-degree AV block. At this point I do not think further monitoring is necessary specifically for this arrhythmia, and I would probably not perform outpatient monitoring. We will continue to follow her as an outpatient however. Subjective She is feeling better now, less nausea, less abdominal pain. No cardiovascular complaints. Physical Exam Vital Signs (Past 24 Hours): Last Vital Signs Temp 37.2 C 12/04/18 07:09 Pulse 90 12/04/18 07:09 Resp 24 12/04/18 07:09 BP 183/70 H 12/04/18 07:09 Pulse Ox 96 12/04/18 07:09 Physical Exam: Constitutional: Alert, cooperative and in no distress. Pulmonary: Clear to auscultation bilaterally. Cardiac: Regular rhythm with no murmur, gallop or rub. Abdomen: Soft, nontender with normal bowel sounds. Extremities: No edema. Skin: No rash, ecchymoses or petechiae. Results & Data Diagnostic Findings Telemetry: Sinus rhythm, no second-degree AV block, no significant arrhythmia
--- NOTE | 2018-12-04 12:33 | Surgery Progress Note ---
Date of Service December 04, 2018 Assessment & Plan (1) Colonic mass: clinically doing much better today increase activity. PT/OT tolerating clears. will slowly advance as tolerated. will need PT at home upon d/c Subjective pt feeling much better today. nausea resolved. stoma functioning. lyric clears Physical Exam Vital Signs (Past 24 Hours): Last Vital Signs Temp 37.1 C 12/04/18 10:58 Pulse 779 H 12/04/18 10:58 Resp 24 12/04/18 10:58 BP 183/74 H 12/04/18 10:58 Pulse Ox 99 12/04/18 10:58 Physical Exam: awake/alert stoma pink/functioning. wound looks good. FRANCINE scant/serous
--- NOTE | 2018-12-04 12:38 | Surgery Progress Note ---
Date of Service December 04, 2018 Assessment & Plan (1) Colonic mass: Pt seen and examined with Dr. Lomax. Pt doing well today. Pain improved, denies nausea or vomiting. NG tube removed yesterday and started on clear liquid diet. If patient continues to tolerating clears, can advance to full liquids tomorrow. Stoma functioning. Will consult case management - pt's family would like home health. Pt to remain inpatient for weekend with possible discharge on Saturday if she continues to do well. Subjective Patient out of bed and in chair- doing much better today. Denies nausea or vomiting. Pain greatly improved today. Tolerating clear liquid diet. Physical Exam Vital Signs (Past 24 Hours): Last Vital Signs Temp 37.1 C 12/04/18 10:58 Pulse 779 H 12/04/18 10:58 Resp 24 12/04/18 10:58 BP 183/74 H 12/04/18 10:58 Pulse Ox 99 12/04/18 10:58 Gastrointestinal (Abdomen): stoma functioning.
--- NOTE | 2018-12-04 13:50 | Hospitalist Progress Note ---
Date of Service December 04, 2018 Assessment & Plan (1) History of bowel resection: S/p ex-lap, left hemicolectomy, and small bowel resection with Dr. Lomax on 11/27. - Continues to have slow colonic recovery. - Received NG tube on 12/01 - Diet per primary team - TPN initiated for a few days per primary team - Clamped tube on 12/03; tolerating clears on 12/04 - Post-op care per primary team (2) Nausea & vomiting: Secondary to bowel surgery vs. operative meds. - Continue Zofran PRN - Continue Reglan 5mg IV q6h PRN (3) Hypertension: Blood pressure was persistently elevated on 11/30. - Restarted home telmisartan on 11/30. - As of 12/03, BP in higher range (~180/70). However, given acute setting, will allow mild hypertension. (4) Hyperlipidemia: Restart home statin as able (5) Glaucoma: - Continue home eye drops timolol (6) Colon cancer: With mets to peritoneum & lymph nodes. Previously completed chemo with high dose 5-FU and leucovorin. 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 - Continue Zantac PO PRN for breakthrough (8) Interstitial cystitis: Holding home Elmiron, follows with urology. - Continue methanamine. (9) ILD (interstitial lung disease): Not on home O2, sees Pulm as outpt, unclear etiology but seemed to develop after getting chemo? - Continue O2 as needed, supportive care (10) Carotid artery stenosis: 50-69% bilat on last check. - Follows with cardiology outpatient - Restarting home statin as able, not on ASA at home. 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 No further 2nd degree blocks since day of admission. - Continue to follow on tele - Cardiology consult appreciated. (12) Anemia: Hgb baseline at 10, likely secondary to colon cancer. - Hgb down to 8.0 on 12/03; down from 9.6 on 12/01. - Received 1 unit PRBCs on 12/03 per primary team (13) CKD (chronic kidney disease) stage 3, GFR 30-59 ml/min: Cr baseline ~0.8. - As of 12/03, Cr at baseline at 0.8. (14) Paroxysmal SVT (supraventricular tachycardia): With a few brief bursts of SVT on 11/29 and 11/30. - Replaced electrolytes - Continue to monitor on telemetry (15) DVT prophylaxis: Lovenox SQ daily Hospitalist service will continue to follow along. Subjective 88yo F w/ hx of colon mass who presents as a medical consult after ex-lap, left hemicolectomy, and small bowel resection with Dr. Lomax on 11/27. Pain is improved today. Nausea improved. Tolerating clears well. Reports no fevers/chills, chest pain, shortness of breath. Physical Exam Vital Signs (Past 24 Hours): Last Vital Signs Temp 37.1 C 12/04/18 10:58 Pulse 779 H 12/04/18 10:58 Resp 24 12/04/18 10:58 BP 183/74 H 12/04/18 10:58 Pulse Ox 99 12/04/18 10:58 Constitutional: well developed; no acute distress Eyes: PERRL, conjunctivae normal, anicteric sclerae ENMT: external ear and nose normal, oropharynx normal Neck: trachea midline, no thyromegaly Respiratory: normal respiratory effort Auscultation: no wheezes Cardiovascular: RRR, no murmur, no edema Gastrointestinal (Abdomen): Inspection/Auscultation: + hypoactive bowel sounds; + abdomen abnormal to inspection (RLQ ostomy bag intact with some gas & stool) Percussion/Palpation: abdomen soft; abdomen nontender Musculoskeletal: Extremities: extremities normal to inspection; no cyanosis and no clubbing Skin: no rashes, warm and dry Neurologic: moves all extremities and awake; no focal motor deficits Psychiatric: A+Ox3, euthymic affect Genitourinary: normal external appearance (with Zepeda catheter in place) (1) Hypertension Hypertension type: essential hypertension Qualified Code(s): I10 - Essential (primary) hypertension
[2018-12-04] MEDS ORDERED: CUSTOM PERIPHERAL PN IV SCH (16:00)
[2018-12-04] MEDS: HydrALAZINE HCL 20 MG/ML VIAL IV PRN (17:06)
[2018-12-04] MEDS: HYDROmorphone HCL 0.5MG/ML 50 ML CASSETTE IV PRN (17:06)
[2018-12-04] MEDS: METHENAMINE HIPPURATE 1 GM TAB PO SCH (21:19)
[2018-12-04] MEDS: ATORVASTATIN 10 MG TAB PO SCH (21:20)
[2018-12-04] MEDS: cephALEXin 500 MG CAP PO SCH (21:21)
[2018-12-04] MEDS: SODIUM CHLORIDE 0.9% 1000ML 1,000 ML IV SCH (22:28)
[2018-12-05] MEDS: HydrALAZINE HCL 20 MG/ML VIAL IV PRN ×3 (03:54→23:31)
[2018-12-05 05:49] LABS: Hematocrit (blood only) 30.8 % (37-47); Hemoglobin 10.2 g/dL (12.0-16.0); Mean Corpuscular Hgb Conc 33.1 g/dL (32-36); Mean Corpuscular Volume 88.8 fL (80-100); Platelet Count 396 K/uL (130-400); RDW Coefficient of Variation 14.5 % (11.5-14.5); RDW Standard Deviation 47.3 fL (36.4-46.3); Red Blood Count 3.47 M/uL (4.2-5.4); White Blood Count 6.71 K/uL (4.8-10.8)
[2018-12-05] MEDS: ACETAMINOPHEN 1,000 MG/100 ML VIAL IV SCH (06:02)
[2018-12-05 06:18] LABS: BUN Creatinine Ratio 23.7 (10-20); Calcium 7.1 mg/dl (8.5-10.1); Est GFR (African American) 94.1; Est GFR (Non-African American) 81.2; Potassium 3.7 mmol/L (3.5-5.1)
[2018-12-05 06:19] LABS: Phosphorus 3.1 mg/dl (2.5-4.9)
--- NOTE | 2018-12-05 08:09 | Surgery Progress Note ---
Date of Service December 05, 2018 Assessment & Plan (1) Colonic mass: POD 8 resection descending colon/mucus fistula, partial SB rxsn x2 advance diet, cont PPN 1-2 more days transfer to floor d/c DISTRICT ADVISER increase activity seen with Dr. Hernandez Subjective sitting up for breakfast, on clears and wanting more Physical Exam Vital Signs (Past 24 Hours): Last Vital Signs Temp 37.1 C 12/05/18 03:43 Pulse 94 H 12/05/18 03:43 Resp 18 12/05/18 03:43 BP 170/65 H 12/05/18 04:35 Pulse Ox 94 12/05/18 03:43 Gastrointestinal (Abdomen): Inspection/Auscultation: + abdominal surgical incision (some drainage) Percussion/Palpation: abdomen soft
[2018-12-05] MEDS ORDERED: HYDROmorphone INJ 0.5 MG/0.5 ML SYR IV PRN (08:11)
[2018-12-05] MEDS: TIMOLOL MALEATE 0.25% OP SOLN 5 ML BTL OP SCH ×2 (08:20→20:30)
[2018-12-05] MEDS: OMEPRAZOLE 20 MG PO SCH ×2 (08:20→20:30)
[2018-12-05] MEDS: cephALEXin 500 MG CAP PO SCH ×2 (08:20→20:29)
[2018-12-05] MEDS: GABAPENTIN 300 MG CAP PO SCH ×2 (08:21→20:29)
[2018-12-05] MEDS: ENOXAPARIN INJ 30 MG/0.3 ML SYR SQ SCH (08:21)
[2018-12-05] MEDS: TELMISARTAN 40 MG TAB PO SCH (08:21)
[2018-12-05] MEDS: OXYCODONE/ACETAMINOPHEN 5mg/325mg TAB PO PRN ×3 (09:29→20:30)
[2018-12-05] MEDS ORDERED: TRAMADOL HCL 50 MG TABLET PO PRN (12:04)
[2018-12-05] MEDS ORDERED: CUSTOM PERIPHERAL PN IV SCH (16:00)
[2018-12-05] MEDS: ATORVASTATIN 10 MG TAB PO SCH (20:29)
[2018-12-05] MEDS: METHENAMINE HIPPURATE 1 GM TAB PO SCH (20:30)
[2018-12-06] MEDS: OXYCODONE/ACETAMINOPHEN 5mg/325mg TAB PO PRN ×4 (00:27→19:39)
[2018-12-06] MEDS: PHENAZOPYRIDINE HCL 200 MG TAB PO PRN ×3 (00:27→19:39)
[2018-12-06] MEDS: ONDANSETRON INJ 2 MG/ML 2 ML VIAL IV PRN (01:17)
[2018-12-06] MEDS: GABAPENTIN 300 MG CAP PO SCH ×2 (07:52→21:07)
[2018-12-06] MEDS: ENOXAPARIN INJ 30 MG/0.3 ML SYR SQ SCH (07:52)
[2018-12-06] MEDS: TELMISARTAN 40 MG TAB PO SCH (07:54)
[2018-12-06] MEDS: TIMOLOL MALEATE 0.25% OP SOLN 5 ML BTL OP SCH ×2 (07:55→21:07)
[2018-12-06] MEDS: OMEPRAZOLE 20 MG PO SCH ×2 (07:55→21:07)
[2018-12-06] MEDS: cephALEXin 500 MG CAP PO SCH ×2 (09:21→21:07)
--- NOTE | 2018-12-06 10:20 | Surgery Progress Note ---
Date of Service December 06, 2018 Assessment & Plan (1) Colonic mass: POD#9 partial small bowel resection, colostomy for recurrent cancer. Doing well from bowel standpoint. Will advance diet to low fiber. drainage from mid portion of incision - will monitor, if increases, may need to open wound and pack. (2) Interstitial cystitis: Worsening pain. Discussed with Dr. Calvin Jameson from urology covering for Dr. Stone. The procedure that she had done can only be done as an outpatient. Recommended IV toradol but she has an allergy to nsaids so will hold off. Continue pyridium and uvex. They will see her tomorrow. Subjective Pt is complaining of pain from her interstitial cystitis - wants to see Dr. Stone who normally helps her manage it. Was started on pyridium and this is helping but still is in pain. Used ice to the area last night. Ostomy is functioning. Tolerating full liquids. Physical Exam Vital Signs (Past 24 Hours): Last Vital Signs Temp 37.2 C 12/06/18 07:50 Pulse 100 H 12/06/18 07:50 Resp 22 12/06/18 07:50 BP 136/62 12/06/18 09:20 Pulse Ox 97 12/06/18 07:50 Constitutional: WD/WN, vitals as above Respiratory: normal respiratory effort, lungs clear to auscultation Cardiovascular: Rate/Rhythm: regular rhythm Gastrointestinal (Abdomen): Percussion/Palpation: abdomen soft; abdomen nontender and no guarding ostomy functioning, no erythema at incision but is draining brownish serous material from umbilical area Neurologic: CN's II-XI intact bilaterally Results & Data Laboratory Results BMP OK.
--- NOTE | 2018-12-06 17:25 | Hospitalist Progress Note ---
Date of Service December 06, 2018 Assessment & Plan (1) History of bowel resection: S/p ex-lap, left hemicolectomy, and small bowel resection with Dr. Lomax on 11/27. - TPN initiated per primary team - Per notes, only 1-2 more days needed. - Post-op care per primary team (2) Nausea & vomiting: Secondary to bowel surgery vs. operative meds. - Continue Zofran PRN - Continue Reglan 5mg IV q6h PRN (3) Hypertension: Blood pressure was persistently elevated on 11/30. - Restarted home telmisartan on 11/30. - As of 12/06, BP in higher range (140/60-180/70). However, given acute setting, will allow mild hypertension. (4) Hyperlipidemia: - Continue home statin (5) Glaucoma: - Continue home timolol (6) Colon cancer: With mets to peritoneum & lymph nodes. Previously completed chemo with high dose 5-FU and leucovorin. 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 - Continue Zantac PO PRN for breakthrough (8) Interstitial cystitis: Holding home Elmiron, follows with urology. - Continue methanamine - Experienced flare on 12/05 - Discussed with urology who cannot do usual treatment of bladder instillation. - Instead, doing Pyridium 200mg TID PRN for symptoms which is helping - Will follow up with urology outpatient elisha on discharge. (9) ILD (interstitial lung disease): Not on home O2, sees Pulm as outpt, unclear etiology but seemed to develop after getting chemo? - Continue O2 as needed, supportive care (10) Carotid artery stenosis: 50-69% bilat on last check. - Follows with cardiology outpatient - Continue statin; not on aspirin (11) Second degree atrioventricular block: With h/o a few years ago when on atenolol; now with brief recurrence here in setting of N/V and post-op from bowel surgery. No further 2nd degree blocks since day of admission. - Cardiology consult appreciated. - No further episodes (12) Anemia: Hgb baseline at 10, likely secondary to colon cancer. - Hgb down to 8.0 on 12/03; down from 9.6 on 12/01. - Received 1 unit PRBCs on 12/03 per primary team - Hgb up to 10.2 on 12/05 (13) CKD (chronic kidney disease) stage 3, GFR 30-59 ml/min: Cr baseline ~0.8. - As of 12/03, Cr at baseline at 0.8. (14) Paroxysmal SVT (supraventricular tachycardia): With a few brief bursts of SVT on 11/29 and 11/30. - Replaced electrolytes - Continue to monitor on telemetry (15) DVT prophylaxis: Lovenox SQ daily Hospitalist service will continue to follow along. Subjective 88yo F w/ hx of colon mass who presents as a medical consult after ex-lap, left hemicolectomy, and small bowel resection with Dr. Lomax on 11/27. Pain is improved today. Nausea improved. Tolerating diet and good ostomy output. Reports no fevers/chills, chest pain, shortness of breath. Physical Exam Vital Signs (Past 24 Hours): Last Vital Signs Temp 36.8 C 12/06/18 15:55 Pulse 86 12/06/18 16:26 Resp 22 12/06/18 15:55 BP 142/62 H 12/06/18 16:26 Pulse Ox 95 12/06/18 15:55 Constitutional: well developed; no acute distress Eyes: PERRL, conjunctivae normal, anicteric sclerae ENMT: external ear and nose normal, oropharynx normal Neck: trachea midline, no thyromegaly Respiratory: normal respiratory effort Auscultation: no wheezes Cardiovascular: RRR, no murmur, no edema Gastrointestinal (Abdomen): Inspection/Auscultation: + abdomen abnormal to inspection (RLQ ostomy bag intact with some gas & stool) Percussion/Palpation: abdomen soft; abdomen nontender Musculoskeletal: Extremities: extremities normal to inspection; no cyanosis and no clubbing Skin: no rashes, warm and dry Neurologic: moves all extremities and awake; no focal motor deficits Psychiatric: A+Ox3, euthymic affect Genitourinary: normal external appearance (with Zepeda catheter in place) (1) Hypertension Hypertension type: essential hypertension Qualified Code(s): I10 - Essential (primary) hypertension
[2018-12-06] MEDS: METHENAMINE HIPPURATE 1 GM TAB PO SCH (21:07)
[2018-12-06] MEDS: ATORVASTATIN 10 MG TAB PO SCH (21:07)
[2018-12-07] MEDS: OXYCODONE/ACETAMINOPHEN 5mg/325mg TAB PO PRN ×5 (02:23→21:47)
[2018-12-07] MEDS: ONDANSETRON INJ 2 MG/ML 2 ML VIAL IV PRN ×2 (08:45→19:30)
[2018-12-07] MEDS: HydrALAZINE HCL 20 MG/ML VIAL IV PRN (08:55)
[2018-12-07] MEDS: ENOXAPARIN INJ 30 MG/0.3 ML SYR SQ SCH (10:07)
[2018-12-07] MEDS: cephALEXin 500 MG CAP PO SCH (10:07)
[2018-12-07] MEDS: TIMOLOL MALEATE 0.25% OP SOLN 5 ML BTL OP SCH ×2 (10:08→21:44)
[2018-12-07] MEDS: GABAPENTIN 300 MG CAP PO SCH ×2 (10:08→21:44)
[2018-12-07] MEDS: OMEPRAZOLE 20 MG PO SCH ×2 (10:09→21:44)
--- NOTE | 2018-12-07 10:44 | Surgery Progress Note ---
Date of Service December 07, 2018 Assessment & Plan (1) Colonic mass: POD#10 partial small bowel resection, colostomy for recurrent cancer. On low fiber diet. drainage from mid portion of incision increased and is more foul smelling. Incision opened at superior aspect around umbilicus and wound packed. Will change to IV ancef and d/c keflex (was on for UTI but her E.coli is also sensitive to ancef). (2) Interstitial cystitis: Continued pain. Discussed with Dr. Calvin Jameson from urology covering for Dr. Stone yesterday. The procedure that she had done can only be done as an outpatient. Recommended IV toradol but she has an allergy to nsaids so will hold off. Continue pyridium and uvex. Subjective Still with burning pain from interstitial cystitis. More drainage from incision. Nausea this morning prior to eating breakfast but was able to keep breakfast down and no nausea now. Physical Exam Vital Signs (Past 24 Hours): Last Vital Signs Temp 36.8 C 12/07/18 06:55 Pulse 83 12/07/18 09:54 Resp 16 12/07/18 06:55 BP 136/67 12/07/18 09:54 Pulse Ox 95 12/07/18 06:55 Constitutional: WD/WN, vitals as above Respiratory: normal respiratory effort, lungs clear to auscultation Cardiovascular: Rate/Rhythm: regular rhythm Gastrointestinal (Abdomen): Percussion/Palpation: abdomen soft; abdomen nontender and no guarding increased foul smelling brownish drainage from superior aspect of wound ostomy functioning with gas/ stool in bag Neurologic: CN's II-XI intact bilaterally
[2018-12-07] MEDS: CEFAZOLIN 1000MG 1,000 MG/7.5 ML SYR IV SCH ×2 (11:33→18:43)
[2018-12-07] MEDS: TELMISARTAN 40 MG TAB PO SCH (12:15)
--- NOTE | 2018-12-07 15:30 | Hospitalist Progress Note ---
Date of Service December 07, 2018 Assessment & Plan (1) History of bowel resection: S/p ex-lap, left hemicolectomy, and small bowel resection with Dr. Lomax on 11/27. - TPN initiated per primary team - Per notes, only 1-2 more days needed. - Post-op care per primary team - On 12/07, concern for surgical site infection. Started on cefazolin by primary team. Culture ordered as RN notes purulent discharge from site. (2) Nausea & vomiting: Secondary to bowel surgery vs. operative meds. - Continue Zofran PRN - Continue Reglan 5mg IV q6h PRN (3) Hypertension: Blood pressure was persistently elevated on 11/30. - Restarted home telmisartan on 11/30. - As of 12/07, BP in higher range (140/60-180/70). Would start second agent (telmisartan at max dose), but patient has allergies to beta-blockers, calcium channel blockers, hydralazine, and durietics. Given acute illness, life expectancy, and age, will defer further agent for now and monitor. (4) Hyperlipidemia: - Continue home statin (5) Glaucoma: - Continue home timolol (6) Colon cancer: With mets to peritoneum & lymph nodes. Previously completed chemo with high dose 5-FU and leucovorin. 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 Mota; unclear how many chemo options she will have available. Oncology will follow as outpatient. (7) GERD (gastroesophageal reflux disease): Continue PPI PO and increased to BID on 11/30 for continued symptoms. - Continue Zantac PO PRN for breakthrough (8) Interstitial cystitis: Holding home Elmiron, follows with urology. - Continue methanamine - Experienced flare on 12/05 - Discussed with urology who cannot do usual treatment of bladder instillation. - Instead, doing Pyridium 200mg TID PRN for symptoms which is helping. - Will follow up with urology outpatient elisha on discharge. (9) ILD (interstitial lung disease): Not on home O2, sees Pulm as outpt, unclear etiology but seemed to develop after getting chemo? - Continue O2 as needed, supportive care (10) Carotid artery stenosis: 50-69% bilat on last check. - Follows with cardiology outpatient - Continue statin; not on aspirin (11) Second degree atrioventricular block: With h/o a few years ago when on atenolol; now with brief recurrence here in setting of N/V and post-op from bowel surgery. No further 2nd degree blocks since day of admission. - Cardiology consult appreciated. - No further episodes (12) Anemia: Hgb baseline at 10, likely secondary to colon cancer. - Hgb down to 8.0 on 12/03; down from 9.6 on 12/01. - Received 1 unit PRBCs on 12/03 per primary team - Hgb up to 10.2 on 12/05 (13) CKD (chronic kidney disease) stage 3, GFR 30-59 ml/min: Cr baseline ~0.8. - As of 12/05, Cr at baseline at 0.6. (14) Paroxysmal SVT (supraventricular tachycardia): With a few brief bursts of SVT on 11/29 and 11/30. - Replaced electrolytes - Continue to monitor on telemetry (15) DVT prophylaxis: Lovenox SQ daily Hospitalist service will continue to follow along. Subjective 88yo F w/ hx of colon mass who presents as a medical consult after ex-lap, left hemicolectomy, and small bowel resection with Dr. Lomax on 11/27. Pain is improved today. Has been out of bed and doing well. Wound has some purulence per RN when unpacked by Dr. Castellano. Reports no fevers/chills, chest pain, shortness of breath. Physical Exam Vital Signs (Past 24 Hours): Last Vital Signs Temp 36.8 C 12/07/18 06:55 Pulse 83 12/07/18 09:54 Resp 16 12/07/18 06:55 BP 136/67 12/07/18 09:54 Pulse Ox 95 12/07/18 06:55 Constitutional: well developed; no acute distress Eyes: PERRL, conjunctivae normal, anicteric sclerae ENMT: external ear and nose normal, oropharynx normal Neck: trachea midline, no thyromegaly Respiratory: normal respiratory effort Cardiovascular: RRR, no murmur, no edema Gastrointestinal (Abdomen): Inspection/Auscultation: + abdomen abnormal to inspection (RLQ ostomy bag intact with some gas & stool) Percussion/Palpation: abdomen soft; abdomen nontender Musculoskeletal: Extremities: extremities normal to inspection; no cyanosis and no clubbing Skin: no rashes, warm and dry Neurologic: moves all extremities and awake; no focal motor deficits (1) Hypertension Hypertension type: essential hypertension Qualified Code(s): I10 - Essential (primary) hypertension
[2018-12-07] MEDS: PHENAZOPYRIDINE HCL 200 MG TAB PO PRN (19:00)
[2018-12-07] MEDS: CALCIUM CARBONATE 500 MG CHEWABLE TAB PO PRN (19:26)
[2018-12-07] MEDS: ATORVASTATIN 10 MG TAB PO SCH (21:44)
[2018-12-07] MEDS: METHENAMINE HIPPURATE 1 GM TAB PO SCH (21:44)
[2018-12-08] MEDS: CEFAZOLIN 1000MG 1,000 MG/7.5 ML SYR IV SCH ×2 (02:24→11:05)
[2018-12-08] MEDS: OXYCODONE/ACETAMINOPHEN 5mg/325mg TAB PO PRN ×2 (04:48→12:05)
[2018-12-08 07:11] LABS: Mean Corpuscular Hgb Conc 32.1 g/dL (32-36); Mean Corpuscular Volume 91.2 fL (80-100); Mean Platelet Volume 8.7 fL (7.4-10.4); Platelet Count 494 K/uL (130-400); RDW Coefficient of Variation 14.3 % (11.5-14.5); RDW Standard Deviation 47.8 fL (36.4-46.3); Red Blood Count 3.07 M/uL (4.2-5.4); White Blood Count 6.79 K/uL (4.8-10.8)
[2018-12-08 07:37] LABS: Calcium 7.4 mg/dl (8.5-10.1); Creatinine Clr Calc Pharmacy 38.8 ml/min; Est GFR (African American) 70.9; Est GFR (Non-African American) 61.2; Magnesium 1.8 mg/dl (1.8-2.4); Potassium 4.1 mmol/L (3.5-5.1)
[2018-12-08] MEDS: TIMOLOL MALEATE 0.25% OP SOLN 5 ML BTL OP SCH (07:53)
[2018-12-08] MEDS: TELMISARTAN 40 MG TAB PO SCH (07:53)
[2018-12-08] MEDS: GABAPENTIN 300 MG CAP PO SCH (07:54)
[2018-12-08] MEDS: ENOXAPARIN INJ 30 MG/0.3 ML SYR SQ SCH (07:54)
[2018-12-08] MEDS: OMEPRAZOLE 20 MG PO SCH (07:55)
--- NOTE | 2018-12-08 08:42 | Surgery Progress Note ---
Date of Service December 08, 2018 Assessment & Plan (1) Colonic mass: will soon be ready for d/c will not visiting nurses for wound/drain care and PT will re-evaluate later today/discuss with pt's daughters. could go home later today or tomorrow. Subjective feeling pretty good today and would like to go home. lyric diet. pain control adequate. Physical Exam Vital Signs (Past 24 Hours): Last Vital Signs Temp 36.8 C 12/08/18 08:16 Pulse 79 12/08/18 08:16 Resp 18 12/08/18 08:16 BP 159/64 H 12/08/18 08:16 Pulse Ox 95 12/08/18 08:16 Physical Exam: alert. nad abd: soft. wound looks good. small area opened over weekend by Dr. Castellano--dry currently. no erythema stoma functioning nicely. Denzel scant/serous
--- NOTE | 2018-12-08 09:07 | Communication Note ---
Date of Service: December 08, 2018 Patient not examined today. Patient with chronic IC who was experiencing pain after bowel resection. Our service consulted via phone for medication recommendations, which were provided by Dr. Jameson this weekend. At that time told there would be no formal consult. Patient has existing outpatient URO appointment with Dr. Stone on 12/30/18 @ 11:00am. Follow up as scheduled. Please contact our service with any additional questions or concerns.
[2018-12-08] MEDS: PHENAZOPYRIDINE HCL 200 MG TAB PO PRN (09:55)
--- NOTE | 2018-12-08 12:33 | Hospitalist Progress Note ---
Date of Service December 08, 2018 Assessment & Plan (1) History of bowel resection: S/p ex-lap, left hemicolectomy, and small bowel resection with Dr. Lomax on 11/27. Now off TPN and tolerating low fiber diet, moving bowels - Post-op care per primary team - On 12/07, concern for surgical site infection. Started on cefazolin by primary team. Culture ordered as RN notes purulent discharge from site. Gram stain with gram-positive cocci and gram-negative rods-ID and sensitivity pending and can be followed up on by surgery after discharge -FRANCINE drain remain in place until 1 week after discharge and will be removed in the office as per patient (2) Nausea & vomiting: Secondary to bowel surgery vs. operative meds. Minimal and intermittent at this point -Could give p.o. Zofran upon discharge-we will defer to general surgery (3) Hypertension: Blood pressure was persistently elevated on 11/30. - Restarted home telmisartan on 11/30. -BPs improved today. Would start second agent (telmisartan at max dose), but patient has allergies to beta-blockers, calcium channel blockers, hydralazine, and durietics. Given acute illness, life expectancy, and age, will defer further agent for now and monitor. (4) Hyperlipidemia: - Continue home statin (5) Glaucoma: - Continue home timolol (6) Colon cancer: With mets to peritoneum & lymph nodes. Previously completed chemo with high dose 5-FU and leucovorin. 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 Mota; unclear how many chemo options she will have available. Oncology will follow as outpatient. (7) GERD (gastroesophageal reflux disease): Continue PPI PO and increased to BID on 11/30 for continued symptoms. - Continue Zantac PO PRN for breakthrough (8) Interstitial cystitis: Holding home Elmiron, follows with urology. - Continue methanamine - Experienced flare on 12/05 - Discussed with urology who cannot do usual treatment of bladder instillation. -Continue using Pyridium 200mg TID PRN for symptoms which is helping. - Will follow up with urology outpatient elisha on discharge. (9) ILD (interstitial lung disease): Not on home O2, sees Pulm as outpt, unclear etiology but seemed to develop after getting chemo? - Continue O2 as needed, supportive care (10) Carotid artery stenosis: 50-69% bilat on last check. - Follows with cardiology outpatient - Continue statin; not on aspirin (11) Second degree atrioventricular block: With h/o a few years ago when on atenolol; now with brief recurrence here in setting of N/V and post-op from bowel surgery. No further 2nd degree blocks since day of admission. - Cardiology consult appreciated. - No further episodes (12) Anemia: Hgb baseline at 10, likely secondary to colon cancer. - Hgb stable today at 9.0 - Received 1 unit PRBCs on 12/03 per primary team -Check CBC as an outpatient with PCP (13) CKD (chronic kidney disease) stage 3, GFR 30-59 ml/min: Cr baseline ~0.8. - As of 12/05, Cr at baseline at 0.6. (14) Paroxysmal SVT (supraventricular tachycardia): With a few brief bursts of SVT on 11/29 and 11/30. - Replaced electrolytes No longer on telemetry-asymptomatic, no further treatment indicated (15) DVT prophylaxis: Lovenox SQ daily Disposition-patient is likely being discharged later today by the general surgery team. Hospitalist service will sign off at this time and recommends follow-up with PCP after discharge Subjective Patient feeling very well today. Reports some intermittent nausea which is relieved with antiemetics. She is passing stool in her colostomy bag. Has some abdominal pain but it is controlled. She is ambulating. Denies headache or lightheadedness, denies chest pain or shortness of breath. She is ready to be discharged today. Review of Systems All systems reviewed & are unremarkable except as noted in HPI & below Physical Exam Vital Signs (Past 24 Hours): Last Vital Signs Temp 36.8 C 12/08/18 08:16 Pulse 79 12/08/18 08:16 Resp 18 12/08/18 08:16 BP 159/64 H 12/08/18 08:16 Pulse Ox 95 12/08/18 08:16 Constitutional: well developed; no acute distress Eyes: PERRL, conjunctivae normal, anicteric sclerae ENMT: external ear and nose normal, oropharynx normal Neck: trachea midline, no thyromegaly Respiratory: normal respiratory effort Auscultation: + crackles (fine, in lower and middle lung kam bilat); no wheezes Cardiovascular: RRR, no murmur, no edema Gastrointestinal (Abdomen): Inspection/Auscultation: normal bowel sounds; + abdomen abnormal to inspection (large dressing in place c/d/i, RLQ ostomy bag intact with brown stool and gas, FRANCINE drain coming out with minimal serosanguineous fluid) Percussion/Palpation: + abdomen tender (over incision site, minimal) and abdomen soft Musculoskeletal: Extremities: extremities normal to inspection; no cyanosis and no clubbing Skin: no rashes, warm and dry Neurologic: moves all extremities and awake; no focal motor deficits Psychiatric: A+Ox3, euthymic affect Results & Data Laboratory Results 12/08/18 12/08/18 Range/Units 06:49 06:49 WBC 6.79 (4.8-10.8) K/uL RBC 3.07 L (4.2-5.4) M/uL Hgb 9.0 L (12.0-16.0) g/dL Hct 28.0 L (37-47) % MCV 91.2 (80-100) fL MCH 29.3 (25-34) pg MCHC 32.1 (32-36) g/dL RDW Std Deviation 47.8 H (36.4-46.3) fL RDW Coeff of [place] 14.3 (11.5-14.5) % Plt Count 494 H (130-400) K/uL MPV 8.7 (7.4-10.4) fL Sodium 137 (136-145) mmol/L Potassium 4.1 (3.5-5.1) mmol/L Chloride 106 (98-107) mmol/L Carbon Dioxide 27 (21-32) mmol/L Anion Gap 4.0 (3-11) BUN 13 (7-18) mg/dl Creatinine 0.86 (0.6-1.2) mg/dl Est Cr Clr Drug Dosing 38.8 ml/min Est GFR ( Amer) 70.9 Est GFR (Non-Af Amer) 61.2 BUN/Creatinine Ratio 15.0 (10-20) Glucose 97 (70-99) mg/dl Calcium 7.4 L (8.5-10.1) mg/dl Magnesium 1.8 (1.8-2.4) mg/dl (1) Hypertension Hypertension type: essential hypertension Qualified Code(s): I10 - Essential (primary) hypertension
[2018-12-08] MEDS: CALCIUM CARBONATE 500 MG CHEWABLE TAB PO PRN (14:01)
--- NOTE | 2018-12-09 10:20 | Surgery Progress Note ---
Date of Service December 09, 2018 Assessment & Plan (1) Anemia: I do not believe her anemia is from acute blood loss anemia from the surgery. We lost minimal blood during the procedure. I believe it is a combination of chronic anemia coupled with chronic illnesses coupled with some delusional aspect as well as some blood draw anemia and poor RBC production, and poor p.o. intake Physical Exam Vital Signs (Past 24 Hours): Last Vital Signs Temp 36.8 C 12/08/18 13:32 Pulse 76 12/08/18 13:32 Resp 18 12/08/18 13:32 BP 159/64 H 12/08/18 13:32 Pulse Ox 95 12/08/18 13:32
--- NOTE | 2018-12-09 10:27 | Discharge Summary ---
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 During her postoperative course she developed some elevated CEA levels followed by an abnormal CT scan. I performed a colonoscopy in her distal remaining sigmoid colon and found some abnormalities. There is also an abnormal PET scan in this area while the biopsies did not show true adenocarcinoma I do believe that what I visualized has underlying adenocarcinoma or at least severe dysplasia within it. We discussed her options and have decided to resect that region of colon. She has a permanent diverting proximal stoma so we will simply need to excise the remaining sigmoid colon and will not require a new anastomosis. Discharge Data Consultations 11/27/18 16:24 Consult Hospitalist Routine 11/27/18 18:19 Consult Cardiology Routine 12/04/18 12:38 Consult Case Management - Discharge Planning Routine 12/06/18 10:32 Consult Urology Routine Procedures Performed Operation Date: 11/27/18 10:45 Actual Procedures p Exploratory Laparotomy, Sigmoid Colectomy, Partial Small Bowel Resection x2, Extensive Enterolysis, Resection Portion Abdominal Wall(Not Applicable) - Anrdey Lomax,
--- NOTE | 2018-12-09 10:27 | Urology Consultation ---
Date of Consultation December 16, 2018 History of Present Illness Attending Physician: Andrey Lomax, DO Allergies Allergy/AdvReac Type Severity Reaction Status Date / Time diltiazem Allergy Unknown TIGHTENING Verified 11/27/18 09:39 OF THROAT erythromycin base Allergy Unknown PT UNSURE Verified 11/27/18 09:39 hydralazine Allergy Unknown dysuria Verified 11/27/18 09:39 mivacurium Allergy Unknown PT UNSURE Verified 11/27/18 09:39 nifedipine Allergy Unknown EXACERBATION Verified 11/27/18 09:39 INTERSTITIAL CYCSTITIS nitrofurantoin Allergy Unknown RASH Verified 11/27/18 09:39 quinine Allergy Unknown PT UNSURE Verified 11/27/18 09:39 Sulfa (Sulfonamide Allergy Unknown RASH Verified 11/27/18 09:39 Antibiotics) azithromycin [From Zithromax] AdvReac Intermediate Rash Verified 11/27/18 09:39 bexarotene AdvReac Intermediate n/v Verified 11/27/18 09:39 Beta-Blockers AdvReac Mild "Secondary Verified 11/27/18 09:39 (Beta-Adrenergic Bloc AVB" Cipro AdvReac Unknown GI SYMPTOMS Verified 04/22/18 09:21 ciprofloxacin AdvReac Unknown GI SYMPTOMS Verified 11/27/18 09:39 hydrochlorothiazide AdvReac Unknown Rash Verified 11/27/18 09:39 hydrocodone AdvReac Unknown GI UPSET Verified 11/27/18 09:39 lisinopril AdvReac Unknown "INTOLERANCE" Verified 11/27/18 09:[address] COLON losartan AdvReac Unknown JITTERY,SHA Verified 11/27/18 09:39 DOHERTY meperidine AdvReac Unknown GI UPSET Verified 11/27/18 09:39 methenamine AdvReac Unknown HX STOMACH Verified 11/27/18 09:39 PAIN- SEE NOTES metronidazole AdvReac Unknown STOMACH Verified 11/27/18 09:39 PAIN Phenothiazines AdvReac Unknown SHAKEY Verified 11/27/18 09:39 prochlorperazine AdvReac Unknown "BODY Verified 11/27/18 09:39 SHAKES" Quinolones AdvReac Unknown CIPRO- Verified 11/27/18 09:39 NAUSEA, NERVOUS, CHILLS simvastatin AdvReac Unknown STOMACH Verified 11/27/18 09:39 PAIN spironolactone AdvReac Unknown RECTAL Verified 11/27/18 09:39 PRESSURE, PAIN terazosin AdvReac Unknown LIGHTHEADEDNESS Verified 11/27/18 09:39 AND NAUSEA valdecoxib AdvReac Unknown GI SYMPTOMS Verified 11/27/18 09:39 Home Medications Home Medications Medication Instructions Recorded Confirmed Type atorvastatin 10 mg PO HS 07/28/18 11/27/18 History cholecalciferol (vitamin D3) 3 tab PO QAM 07/28/18 11/27/18 History [Vitamin D3] clobetasol 1 applic TOPICAL 2XWK 07/28/18 11/27/18 History gabapentin 300 mg PO BID 07/28/18 11/27/18 History loratadine [Claritin] 10 mg PO QAM 07/28/18 11/27/18 History methenamine hippurate 1 g PO HS 07/28/18 11/27/18 History omeprazole 20 mg PO QAM 07/28/18 11/27/18 History phenazopyridine [Pyridium] 200 mg PO TID PRN 07/28/18 11/27/18 History telmisartan 80 mg PO QAM 07/28/18 11/27/18 History timolol maleate 1 drp OPHTHALMIC (EYE) BID 07/28/18 11/27/18 History tramadol 25 mg PO QID PRN 07/28/18 11/27/18 History oxycodone-acetaminophen [Percocet] 1 - 2 tab PO Q4H PRN #15 tab 12/08/18 Rx Patient History Medical History Anemia Aortic insufficiency CKD (chronic kidney disease) stage 3, GFR 30-59 ml/min Cardiac murmur No significant valve disease per 2017 echo Carotid artery stenosis Carotid Doppler 07/23/2016 showed 50-69% stenosis bilateral internal carotid arteries. Per PCP 08/26/18 "Continue with current treatment. Previously had plan to repeat carotid Doppler for re-evaluation. Given the patient's advanced age and other problems though we decided not to pursue further carotid Doppler screening at least at this time." Chronic diastolic CHF (congestive heart failure) Colon cancer 2016--sx, chemo Colostomy in place REPORTS "FISSURE LEFT SIDE OF ABDOMEN" Elevated CEA Folate deficiency GERD (gastroesophageal reflux disease) Glaucoma History of vertebral fracture PER 06/2018 XRAY: "There is a new superior endplate L4 compression fracture. There is an old L2 compression fracture. There are severe T12 and L1 compression fractures. The bones are osteopenic. There are multilevel degenerative changes." Hyperlipidemia Hypertension ILD (interstitial lung disease) No SOB with stairs Interstitial cystitis MRSA nasal colonization Osteoarthritis Renal artery stenosis Seasonal allergies Second degree atrioventricular block Skin cancer Vertigo Surgical History History of temporal artery biopsy H/O exploratory laparotomy 2016. status post open transverse colectomy with primary anastomosis, omentectomy, excision or biopsy of left liver lesion performed by Dr. Lind on 12/13/2016. Unfortunately postoperatively she developed intra-abdominal abscesses requiring re-exploration of her abdomen, washout of the abscesses, takedown of the primary anastomosis and creation of a colostomy and mucous fistula. History of bilateral cataract extraction History of bowel resection 2015 for colon cancer--colostomy History of cervical polypectomy History of colonoscopy History of tooth extraction all teeth removed Family History Daughter Family history of breast cancer Other No family history of adverse response to anesthesia Social History Preferred Language: Slovak Beliefs That Will Affect Care: None marital status: Current Living Situation: Spouse Other Information That Helps Us Care for You: No Feels Safe at Home: Yes Safety Concerns: Feels Safe At This Time Smoking Status: Never smoker Hx Alcohol Use: No Hx Substance Use: No Physical Exam Vital Signs (Past 24 Hours): Last Vital Signs Temp 36.8 C 12/08/18 13:32 Pulse 76 12/08/18 13:32 Resp 18 12/08/18 13:32 BP 159/64 H 12/08/18 13:32 Pulse Ox 95 12/08/18 13:32
--- NOTE | 2018-12-09 10:27 | Discharge Summary ---
Date of Service December 10, 2018 Discharge Data Consultations 11/27/18 16:24 Consult Hospitalist Routine 11/27/18 18:19 Consult Cardiology Routine 12/04/18 12:38 Consult Case Management - Discharge Planning Routine 12/06/18 10:32 Consult Urology Routine Procedures Performed Operation Date: 11/27/18 10:45 Actual Procedures p Exploratory Laparotomy, Sigmoid Colectomy, Partial Small Bowel Resection x2, Extensive Enterolysis, Resection Portion Abdominal Wall(Not Applicable) - Andrey Lomax DO
--- NOTE | 2018-12-09 10:29 | Discharge Summary ---
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 During her postoperative course she developed some elevated CEA levels followed by an abnormal CT scan. I performed a colonoscopy in her distal remaining sigmoid colon and found some abnormalities. There is also an abnormal PET scan in this area while the biopsies did not show true adenocarcinoma I do believe that what I visualized has underlying adenocarcinoma or at least severe dysplasia within it. We discussed her options and have decided to resect that region of colon. She has a permanent diverting proximal stoma so we will simply need to excise the remaining sigmoid colon and will not require a new anastomosis. Principal Diagnosis anemia-I do not believe her anemia was acute blood loss anemia from the surgery. I believe it was multifactorial including chronic anemia, blood draw anemia, malnutrition, and anemia of chronic disease Discharge Exam Gastrointestinal (Abdomen) Inspection/Auscultation: + abdominal surgical incision (upper incision packed); abdomen not distended Percussion/Palpation: abdomen soft Discharge Data Allergies Allergy/AdvReac Type Severity Reaction Status Date / Time diltiazem Allergy Unknown TIGHTENING Verified 11/27/18 09:39 OF THROAT erythromycin base Allergy Unknown PT UNSURE Verified 11/27/18 09:39 hydralazine Allergy Unknown dysuria Verified 11/27/18 09:39 mivacurium Allergy Unknown PT UNSURE Verified 11/27/18 09:39 nifedipine Allergy Unknown EXACERBATION Verified 11/27/18 09:39 INTERSTITIAL CYCSTITIS nitrofurantoin Allergy Unknown RASH Verified 11/27/18 09:39 quinine Allergy Unknown PT UNSURE Verified 11/27/18 09:39 Sulfa (Sulfonamide Allergy Unknown RASH Verified 11/27/18 09:39 Antibiotics) azithromycin [From Zithromax] AdvReac Intermediate Rash Verified 11/27/18 09:39 bexarotene AdvReac Intermediate n/v Verified 11/27/18 09:39 Beta-Blockers AdvReac Mild "Secondary Verified 11/27/18 09:39 (Beta-Adrenergic Bloc AVB" Cipro AdvReac Unknown GI SYMPTOMS Verified 04/22/18 09:21 ciprofloxacin AdvReac Unknown GI SYMPTOMS Verified 11/27/18 09:39 hydrochlorothiazide AdvReac Unknown Rash Verified 11/27/18 09:39 hydrocodone AdvReac Unknown GI UPSET Verified 11/27/18 09:39 lisinopril AdvReac Unknown "INTOLERANCE" Verified 11/27/18 09:[address] PENDLETON losartan AdvReac Unknown JITTDAYANARASHA Verified 11/27/18 09:39 DOHERTY meperidine AdvReac Unknown GI UPSET Verified 11/27/18 09:39 methenamine AdvReac Unknown HX STOMACH Verified 11/27/18 09:39 PAIN- SEE NOTES metronidazole AdvReac Unknown STOMACH Verified 11/27/18 09:39 PAIN Phenothiazines AdvReac Unknown SHAKEY Verified 11/27/18 09:39 prochlorperazine AdvReac Unknown "BODY Verified 11/27/18 09:39 SHAKES" Quinolones AdvReac Unknown CIPRO- Verified 11/27/18 09:39 NAUSEA, NERVOUS, CHILLS simvastatin AdvReac Unknown STOMACH Verified 11/27/18 09:39 PAIN spironolactone AdvReac Unknown RECTAL Verified 11/27/18 09:39 PRESSURE, PAIN terazosin AdvReac Unknown LIGHTHEADEDNESS Verified 11/27/18 09:39 AND NAUSEA valdecoxib AdvReac Unknown GI SYMPTOMS Verified 11/27/18 09:39 Consultations 11/27/18 16:24 Consult Hospitalist Routine 11/27/18 18:19 Consult Cardiology Routine 12/04/18 12:38 Consult Case Management - Discharge Planning Routine 12/06/18 10:32 Consult Urology Routine Procedures Performed Operation Date: 11/27/18 10:45 Actual Procedures p Exploratory Laparotomy, Sigmoid Colectomy, Partial Small Bowel Resection x2, Extensive Enterolysis, Resection Portion Abdominal Wall(Not Applicable) - Andrey Lomax, Hospital Course (1) Colonic mass: 88 y/o female with history of colon cancer and anastomotic leak resulting in colostomy and mucus fistula. She now has a new mass of sigmoid colon/mucus fistula and was taken to the operating room for resection. Pathology returned as mucinous adenocarcinoma. She was transferred to PCU for postoperative monitoring. Her bowel function was slow to return. On POD 4 she had nausea and bloating, a nasogastric tube was placed and PPN started. Her bowel function began to return and NG was removed on day 6. Hemoglobin had drifted to 8 and she was transfused 1 unit PRBCs and remained stable thereafter. She had a brief episode of 2:1 AV block which was attributed to vasovagal response and did require further work-up. By day 7 she was having colostomy output, diet was advanced and PPN weaned. She was transferred to the surgical floor on day 8. She complained of some pelvic pain, pyridium and urex were resumed for her interstitial cystitis. She had some wound drainage, a small portion of her upper incision was opened and packed. She was also started on empiric antibiotics although selection is limited by her multiple allergies. On POD 11 she was tolerating diet, was ambulating well and was stable for discharge with home health. (2) Second degree AV block: (3) Anemia: (4) HTN (hypertension): (5) Interstitial cystitis: Total Time Total Time Spent Total Time Spent (In Minutes): 20 Discharge Plan Discharge Items Patient Disposition: Home - Home Health Services Reason For Visit: Colon Mass Discharge Diagnosis: resection of descending colon/mucus fistula Discharge Goals: Decrease discomfort Activity: Per 'Additional Instructions' section Lifting: No more than 10 pounds Bathing Comment: ok to shower with drain Non-emergency contact: Surgeon Call non-emergency contact if: you have any medication questions, your pain is not controlled, you have a fever, your temperature is above 101.5, your wound has increased redness and your wound has increased drainage Follow-up/Referrals: Renato Stone MD [Physician] - (You have an appt on 12/30 at 11:00) Seth Pendleton MD [Primary Care Provider] - 12/18/18 2:30 pm (A follow up appointment has been made for you with Dr. Pendleton on December 18 at 2:30pm. If unable to keep this appointment, please call at [phone].) Andrey Lomax, [Surgeon] - (In 1 week, call if you do not already have an appt) Diet: Low Fiber Addtl Provider Instructions: Change wound packing daily, can shower while packing is removed empty drain 2-3 times daily as needed Prescriptions: New oxycodone-acetaminophen [Percocet] 5-325 mg tablet 1 - 2 tab PO Q4H PRN (Reason: pain) Qty: 15 RF: 0 clindamycin HCl 300 mg capsule 300 mg PO TID 7 Days Qty: 21 RF: 0 Continued atorvastatin 10 mg Tablet 10 mg PO HS RF: 0 phenazopyridine [Pyridium] 200 mg Tablet 200 mg PO TID PRN (Reason: UTI) RF: 0 tramadol 50 mg Tablet 25 mg PO QID PRN (Reason: Pain) RF: 0 methenamine hippurate 1 gram Tablet 1 g PO HS RF: 0 telmisartan 80 mg Tablet 80 mg PO QAM RF: 0 gabapentin 300 mg Capsule 300 mg PO BID RF: 0 clobetasol 0.05 % Ointment 1 applic TOPICAL 2XWK RF: 0 timolol maleate 0.5 % Drops 1 drp OPHTHALMIC (EYE) BID RF: 0 loratadine [Claritin] 10 mg Tablet 10 mg PO QAM RF: 0 cholecalciferol (vitamin D3) [Vitamin D3] 1,000 unit Tablet 3 tab PO QAM RF: 0 omeprazole 20 mg Tablet,Delayed Release (Dr/Ec) 20 mg PO QAM RF: 0 Discontinued acetaminophen [Acetaminophen Extra Strength] 500 mg Tablet 500 mg PO TID PRN (Reason: Pain) RF: 0 Stand-Alone Forms: [facility], Opioid Pain Management Discharge Orders: Discharge Order (Routine); Ordered 12/08/18 Ordered By: Fer Herrera Admission Data Admit Date/Time: 11/27/18 10:35 Attending Provider: Andrey Lomax Admit Provider: Andrey Lomax Primary Care Provider: Seth Pendleton Other Providers: Russ Fernandez ; Jeremias Jameson II ; Renato Bar ; Beatriz Kincaid Service: Surgical Services Other Interventions: Discharge Summary Assessment (RN) Last Done: 12/08/18 13:32 DC Date/Time DO NOT enter until pt leaves facility: 12/08/18 14:20
--- NOTE | 2018-12-10 09:10 | Coding Query ---
CODING QUERY To promote full compliance with coding requirements relating to patient care, provider participation is requested in all cases of batch tester uncertainty. Please assist us with the question(s) below: Coding Question(s): Patient admitted with Sigmoid Cancer ; laparotomy with extensive lysis of adhesions and excision of intestine. Operative report documents serosal tear. Please check below the phrase that describes the serosal tear. Thanks for your help! CELIO Tuttle [facility] Physician's Response(s): The Serosal Tear is an unexpected complication of the procedure ___x The Serosal Tear is an expected occurrence of the operative procedure Cannot clinically correlate if the Serosal tear is an expected complication of the operative procedure x___ Other/ Please document: The serosa had to be purposefully cut to complete the procedure. Principal Diagnosis: "that condition established after study, to be chiefly responsible for occasioning the admission of the patient to the hospital for care." Co-Existing Principal Diagnosis: "when two or more diagnoses equally meet the criteria for principal diagnosis as determined by the circumstances of admission, diagnostic work up, and/or therapy provided, and the Alphabetic Index, Tabular List, or another coding guideline does not provide sequencing direction, any one of the diagnoses may be sequenced first." "When the physician has documented what appears to be a current diagnosis in the body of the record, but has not included the diagnosis in the final diagnostic statement, the physician should be asked whether the diagnosis should be added." (Source Coding [facility] 2 QTR90. p3-4) AGUSTOD
== END 2018-12-08 14:20 | disposition home health service (06) | DRG 330 ==
LOC: ASU 08:53 → 2E 10:35 → 3N 12-05 11:57

== ENCOUNTER 2019-11-01 08:35 | Observation (INO) ==
[2019-11-01] MEDS ORDERED: KETOROLAC TROMETHAMINE 15 MG/ML VIAL IV ONE (09:08)
[2019-11-01 09:19] LABS: Basophils # (auto) 0.02 K/uL (0-0.2); Basophils % (auto) 0.3 %; Eosinophils # (auto) 0.13 K/uL (0-0.5); Eosinophils % (auto) 2.2 %; Hematocrit (blood only) 33.4 % (37-47); Hemoglobin 10.7 g/dL (12.0-16.0); Immature Granulocytes # (auto) 0.01 K/uL (0.00-0.02); Immature Granulocytes % (auto) 0.2 %; Lymphocytes % (auto) 20.3 %; Mean Corpuscular Volume 93.6 fL (80-100); Mean Platelet Volume 8.8 fL (7.4-10.4); Monocytes # (auto) 0.56 K/uL (0.11-0.59); Monocytes % (auto) 9.5 %; Neutrophils # (auto) 3.99 K/uL (1.4-6.5); Neutrophils % (auto) 67.5 %; Platelet Count 322 K/uL (130-400); RDW Coefficient of Variation 14.4 % (11.5-14.5); RDW Standard Deviation 49.5 fL (36.4-46.3); Red Blood Count 3.57 M/uL (4.2-5.4); White Blood Count 5.91 K/uL (4.8-10.8)
[2019-11-01 09:33] LABS: Alanine Aminotransferase 16 U/L (12-78); Albumin Level 3.5 gm/dl (3.4-5.0); Aspartate Aminotransferase 12 U/L (15-37); BUN Creatinine Ratio 17.2 (10-20); Blood Urea Nitrogen 19 mg/dl (7-18); Calcium 8.7 mg/dl (8.5-10.1); Carbon Dioxide 28 mmol/L (21-32); Chloride 103 mmol/L (98-107); Est GFR (African American) 51.7; Est GFR (Non-African American) 44.6; Glucose 104 mg/dl (70-99); Sodium 137 mmol/L (136-145)
--- NOTE | 2019-11-01 09:34 | Emergency Department Note ---
Entered by Leeanna Rodriguez acting as a scribe for History of Present Illness General Chief complaint: Back Injury/Pain Stated complaint: back pain Time Seen by Provider: 11/01/19 08:42 Source: patient and old records reviewed Mode of arrival: ambulatory Limitations: no limitations History of Present Illness Provider complaint: Back pain Onset (ago): day(s) 6 Location: back Radiation: extremity (right lower extremity to knee) and other (groin) Pain Consistency: + other (worsening) Maximum Pain Intensity: 6 Quality: + other (pain) Relieved By: + none Exacerbated By: + other (sleeping at night) The patient is an 89 year old female with a history of carotid artery stenosis, cardiac murmur, aortic insufficiency, anemia, CHF, stage 3 CKD, colon cancer, colostomy, GERD, vertebral fracture, hypertension, hyperlipidemia, interstitial lung disease, osteoporosis, osteoarthritis, and skin cancer who presents to the Emergency Room with complaints of worsening back pain starting 6 days ago. The patient reports that her pain started when she went to chemotherapy. She states that her pain radiates from her back to her groin and down to her right knee, and she adds that it worsens at night. She notes that she was evaluated by Dr. Danielle in the ED 2 days ago but that her pain has persisted. Per the patient's medical records, imaging performed during this visit showed compression fractures and spinal stenosis. The patient explains that she has been taking Tramadol and Gabapentin, and that Baclofen seems to exacerbate her pain. She denies any recent falls, and she reports that she has not yet seen a back specialist and pain management. Home Medications Home Medications Medication Instructions Recorded Confirmed Type cholecalciferol (vitamin D3) 4,000 unit PO QAM 07/28/18 11/01/19 History [Vitamin D3] methenamine hippurate 1 g PO HS 07/28/18 11/01/19 History ostomy supplies #1 ea 05/20/19 11/01/19 Rx omeprazole 20 mg tablet,delayed 20 mg PO DAILY #30 tab 10/07/19 11/01/19 Rx release tramadol 50 mg tablet 25 mg PO QID tab 10/07/19 11/01/19 History loratadine 10 mg tablet 10 mg PO QAM 10/27/19 11/01/19 History diclofenac sodium 1 % topical gel 4 gm TOP QID #100 gm 10/29/19 11/01/19 Rx amlodipine 5 mg PO DAILY 10/30/19 11/01/19 History baclofen See Rx Instructions .ROUTE 10/30/19 11/01/19 Rx .COMPLEX PRN #20 tab brimonidine [Alphagan P] 1 drp OPB BID 10/30/19 11/01/19 History gabapentin 300 mg PO BID 10/30/19 11/01/19 History pentosan polysulfate sodium 100 mg PO DAILY 10/30/19 11/01/19 History [Elmiron] telmisartan 80 mg PO QAM 10/30/19 11/01/19 History Allergies Allergy/AdvReac Type Severity Reaction Status Date / Time diltiazem Allergy Unknown TIGHTENING Verified 11/01/19 09:18 OF THROAT erythromycin base Allergy Unknown PT UNSURE Verified 11/01/19 09:18 hydralazine Allergy Unknown dysuria Verified 11/01/19 09:18 nifedipine Allergy Unknown EXACERBATION Verified 11/01/19 09:18 INTERSTITIAL CYCSTITIS nitrofurantoin Allergy Unknown RASH Verified 11/01/19 09:18 quinine Allergy Unknown PT UNSURE Verified 11/01/19 09:18 Sulfa (Sulfonamide Allergy Unknown RASH Verified 11/01/19 09:18 Antibiotics) azithromycin [From Zithromax] AdvReac Intermediate Rash Verified 11/01/19 09:18 bexarotene AdvReac Intermediate n/v Verified 11/01/19 09:18 Beta-Blockers AdvReac Mild "Secondary Verified 11/01/19 09:18 (Beta-Adrenergic Bloc AVB" Cipro AdvReac Unknown GI SYMPTOMS Verified 04/22/18 09:21 ciprofloxacin AdvReac Unknown GI SYMPTOMS Verified 11/01/19 09:18 hydrochlorothiazide AdvReac Unknown Rash Verified 11/01/19 09:18 hydrocodone AdvReac Unknown GI UPSET Verified 11/01/19 09:18 lisinopril AdvReac Unknown "INTOLERANCE" Verified 11/01/19 09:[address] PENDLETON losartan AdvReac Unknown JITTERY,SHA Verified 11/01/19 09:18 DOHERTY meperidine AdvReac Unknown GI UPSET Verified 11/01/19 09:18 methenamine AdvReac Unknown HX STOMACH Verified 11/01/19 09:18 PAIN- SEE NOTES metronidazole AdvReac Unknown STOMACH Verified 11/01/19 09:18 PAIN Phenothiazines AdvReac Unknown SHAKEY Verified 11/01/19 09:18 prochlorperazine AdvReac Unknown "BODY Verified 11/01/19 09:18 SHAKES" Quinolones AdvReac Unknown CIPRO- Verified 11/01/19 09:18 NAUSEA, NERVOUS, CHILLS simvastatin AdvReac Unknown STOMACH Verified 11/01/19 09:18 PAIN spironolactone AdvReac Unknown RECTAL Verified 11/01/19 09:18 PRESSURE, PAIN terazosin AdvReac Unknown LIGHTHEADEDNESS Verified 11/01/19 09:18 AND NAUSEA valdecoxib AdvReac Unknown GI SYMPTOMS Verified 11/01/19 09:18 clindamycin AdvReac Unknown Verified 11/01/19 09:18 Quinidine-Quinine Analogues AdvReac Unknown Verified 11/01/19 09:18 (Cincho hydralazine AdvReac Unknown Uncoded 11/01/19 09:18 methonidazole AdvReac Unknown Uncoded 11/01/19 09:18 spirononolactone AdvReac Unknown Uncoded 11/01/19 09:18 sulfa drugs AdvReac Unknown Uncoded 11/01/19 09:18 Past Med/Surg History Medical History Anemia Aortic insufficiency Cardiac murmur No significant valve disease per 2017 echo Carotid artery stenosis Carotid Doppler 07/23/2016 showed 50-69% stenosis bilateral internal carotid arteries. Per PCP 08/26/18 "Continue with current treatment. Previously had plan to repeat carotid Doppler for re-evaluation. Given the patient's advanced age and other problems though we decided not to pursue further carotid Doppler screening at least at this time." Chronic diastolic CHF (congestive heart failure) CKD (chronic kidney disease) stage 3, GFR 30-59 ml/min Colon cancer 2016--sx, chemo 11/2018 -recurrence w/ mets to peritoneum & lymph nodes Colostomy in place REPORTS "FISSURE LEFT SIDE OF ABDOMEN" Elevated CEA Folate deficiency GERD (gastroesophageal reflux disease) Glaucoma History of vertebral fracture PER 06/2018 XRAY: "There is a new superior endplate L4 compression fracture. There is an old L2 compression fracture. There are severe T12 and L1 compression fractures. The bones are osteopenic. There are multilevel degenerative changes." Hyperlipidemia Hypertension ILD (interstitial lung disease) No SOB with stairs Interstitial cystitis MRSA nasal colonization Osteoarthritis Osteoporosis Renal artery stenosis Seasonal allergies Second degree atrioventricular block Skin cancer Vertigo Surgical History H/O exploratory laparotomy 2016. status post open transverse colectomy with primary anastomosis, o mentectomy, excision or biopsy of left liver lesion performed by Dr. Lomax 12/13/2016. Unfortunately postoperatively she developed intra-abdominal abscesses requiring re-exploration of her abdomen, washout of the abscesses, takedown of the primary anastomosis and creation of a colostomy and mucous fistula. History of bilateral cataract extraction History of bowel resection 2015 for colon cancer--colostomy History of cervical polypectomy History of colonoscopy History of exploratory laparotomy 11/27/18 [facility] - left hemicolectomy and small bowel resection with Dr. Lomax. Grade 1 view with MAC 3 and 7.0 ETT, EZ mask. History of temporal artery biopsy History of tooth extraction all teeth removed Family History Daughter Family history of breast cancer Other No family history of adverse response to anesthesia Social History Preferred Language: German Communication Ability: Effective Hearing Ability: Hard of Hearing Photo Print Specialist Required: No marital status: Current Living Situation: Spouse current occupational status: retired Feels Safe at Home: Yes Smoking Status: Never smoker Second Hand Exposure: No ; Hx Alcohol Use: No Hx Substance Use: No Seatbelt Use: always Sunscreen Use: No Review of Systems See HPI for pertinent positives & negatives. and A total of 10 systems reviewed and were otherwise negative Physical Exam Vital Signs Vital Signs - 24 hr 11/01/19 08:38 11/01/19 10:14 11/01/19 11:45 Temperature 36.7 C Temperature Source Oral Pulse Rate 80 68 Pulse Rate [Right Finger] 68 77 Pulse Rhythm Regular Pulse Rhythm [Right Finger] Regular Regular Pulse Strength [Right Finger] Normal Normal Respiratory Rate 20 20 20 Respiratory Effort / Characteristics Non-Labored Non-Labored Spontaneous Non-Labored Spontaneous Respiratory Depth Normal Normal Normal Respiratory Pattern Regular Regular Blood Pressure 194/62 H Blood Pressure [Left Arm] 222/68 H 209/77 H Blood Pressure Mean 106 Blood Pressure Mean [Left Arm] 119 121 Blood Pressure Position [Left Arm] Lying Lying Pulse Oximetry 97 95 98 Oxygen Delivery Method Room Air Room Air Room Air Sepsis Recent Fever Within 48 Hours No Sepsis Action Taken by Nursing No Action Required CONSTITUTIONAL/VITAL SIGNS: Reviewed / noted above. GENERAL: Non-toxic in appearance. INTEGUMENTARY: Warm, dry, and [place]. HEAD: Normocephalic. EYES: without scleral icterus or trauma. ENT/OROPHARYNX: clear and moist. LYMPHADENOPATHY/NECK: Is supple without lymphadenopathy or meningismus. RESPIRATORY: Lungs clear and equal. CARDIOVASCULAR: Regular rate and rhythm. GI/ABDOMEN: Soft. No organomegaly or pulsatile mass. No rebound or guarding. Normal bowel sounds. Mild tenderness in the right lower quadrant. EXTREMITIES: Warm and well perfused. BACK: No CVA tenderness. Tenderness to palpation of the lumbar paraspinal musculature. NEUROLOGICAL: Intact without focal deficits. PSYCHIATRIC: normal affect. MUSCULOSKELETAL: Normally developed with good muscle tone. Course Course 0846: The patient was evaluated in room C4, and a complete history and physical examination were performed. 1309: I discussed the patient's case with Dr. Heard - Elysia. Dr. Heard will evaluate the patient for further management. 1325: I checked on the patient and updated her on her results. The patient verablized agreement of the treatment plan. Consultations Consultation #1: I discussed the patient's case with Dr. Heard - Elysia. Dr. Heard will evaluate the patient for further management. Time: 13:09 Administered Medications Discontinued Medications Acetaminophen (Tylenol) 500 mg PO NOW STA Stop: 11/01/19 13:13 Last Admin: 11/01/19 13:18 Dose: 500 mg Documented by: [id number] Fentanyl Citrate (Fentanyl Citrate) 50 mcg IV NOW STA Stop: 11/01/19 11:36 Last Admin: 11/01/19 11:43 Dose: 50 mcg Documented by: [id number] Fentanyl Citrate (Fentanyl Citrate) 50 mcg IV NOW STA Stop: 11/01/19 13:02 Last Admin: 11/01/19 13:17 Dose: 50 mcg Documented by: [id number] Ketorolac Tromethamine (Toradol) 10 mg IV NOW ONE Stop: 11/01/19 09:09 Last Admin: 11/01/19 09:14 Dose: 10 mg Documented by: [id number] Medical Decision Making Differential Diagnosis Differential diagnosis: Etiologies such as appendicitis, diverticulitis, PUD, biliary pathology, UTI, pancreatitis, obstruction, mesenteric ischemia, aortic pathology, infections, inflammatory bowel disease, renal colic, as well as others were entertained. Medical Records Attestation: I reviewed the patient's medical records. Home Medications Current Medication List: was personally reviewed by me Laboratory Data Attestation: I reviewed the patient's lab results. Result diagrams: 11/01/19 09:05 11/01/19 09:05 Lab Results 11/01/19 11/01/19 11/01/19 Range/Units 09:05 09:05 10:06 WBC 5.91 (4.8-10.8) K/uL RBC 3.57 L (4.2-5.4) M/uL Hgb 10.7 L (12.0-16.0) g/dL Hct 33.4 L (37-47) % MCV 93.6 (80-100) fL MCH 30.0 (25-34) pg MCHC 32.0 (32-36) g/dL RDW Std Deviation 49.5 H (36.4-46.3) fL RDW Coeff of [place] 14.4 (11.5-14.5) % Plt Count 322 (130-400) K/uL MPV 8.8 (7.4-10.4) fL Immature Gran % (Auto) 0.2 % Neut % (Auto) 67.5 % Lymph % (Auto) 20.3 % [place] % (Auto) 9.5 % Eos % (Auto) 2.2 % Baso % (Auto) 0.3 % Immature Gran # (Auto) 0.01 (0.00-0.02) K/uL Neut # (Auto) 3.99 (1.4-6.5) K/uL Lymph # (Auto) 1.20 (1.2-3.4) K/uL [place] # (Auto) 0.56 (0.11-0.59) K/uL Eos # (Auto) 0.13 (0-0.5) K/uL Baso # (Auto) 0.02 (0-0.2) K/uL Sodium 137 (136-145) mmol/L Potassium 4.0 (3.5-5.1) mmol/L Chloride 103 (98-107) mmol/L Carbon Dioxide 28 (21-32) mmol/L Anion Gap 6.0 (3-11) BUN 19 H (7-18) mg/dl Creatinine 1.11 (0.6-1.2) mg/dl Est Cr Clr Drug Dosing Not Reportable Est GFR ( Amer) 51.7 Est GFR (Non-Af Amer) 44.6 BUN/Creatinine Ratio 17.2 (10-20) Glucose 104 H (70-99) mg/dl Calcium 8.7 (8.5-10.1) mg/dl Total Bilirubin 0.3 (0.2-1) mg/dl AST 12 L (15-37) U/L ALT 16 (12-78) U/L Alkaline Phosphatase 64 (45-117) U/L Total Protein 8.2 (6.4-8.2) gm/dl Albumin 3.5 (3.4-5.0) gm/dl Globulin 4.7 H (2.5-4.0) gm/dl Albumin/Globulin Ratio 0.8 L (0.9-2) Urine Color Yellow Urine Appearance Clear (Clear) Urine pH 7.0 (4.5-7.5) Ur Specific [place] 1.006 (1.000-1.030) Urine Protein Negative (Negative) Urine Glucose (UA) Negative (Negative) Urine Ketones Negative (Negative) Urine Blood Trace H (Negative) Urine Nitrite Negative (Negative) Urine Bilirubin Negative (Negative) Urine Urobilinogen Negative (Negative) Ur Leukocyte Esterase Negative (Negative) Urine WBC (Auto) 0 (0-5) /hpf Urine RBC (Auto) 0-4 (0-4) /hpf U Hyaline Cast (Auto) 0 (0-5) /lpf U Epithel Cells (Auto) 0-5 (0-5) /lpf Urine Bacteria (Auto) Negative (Negative) Imaging Data Radiologist's Impression: Radiology results as stated below per my review and the radiologist's interpretation: CT SCAN OF THE ABDOMEN AND PELVIS WITHOUT IV CONTRAST CLINICAL HISTORY: Right lower quadrant abdominal pain. COMPARISON STUDY: Abdominal CT dated 09/23/2019. Pelvic CT dated 10/30/2019. TECHNIQUE: CT scan of the abdomen and pelvis is performed from the lung bases to the proximal femora. Images are reviewed in the axial, sagittal, and coronal planes. IV contrast was not administered for this examination as per the referring clinician. Note that the examination was performed in suboptimal fashion without oral and IV contrast. A dose lowering technique was utilized adhering to the principles of ALARA. CT DOSE: 414.67 mGycm FINDINGS: Lung bases: The heart is enlarged and without pericardial effusion. There is advanced chronic calcification of the visualized thoracic aorta. The coronary arteries are densely calcified. Changes of chronic interstitial lung disease are noted at the lung bases. There is no airspace consolidation typical for pneumonia or pleural effusion. Pleural thickening is noted at the right lung base. There is a small hiatal hernia. Liver: The unenhanced liver is normal in size, contour, and attenuation. There is no intrahepatic biliary ductal dilatation. Gallbladder: The gallbladder is mildly distended. The wall appears thickened and there is pericholecystic stranding. Spleen: Normal in size and attenuation. Pancreas: The unenhanced pancreas is moderately atrophic and grossly unremarkable. Adrenal glands: Unremarkable. Kidneys: The unenhanced kidneys demonstrate cortical atrophy and are without hydronephrosis. There are no renal calculi identified. There is no evidence of contour deforming renal mass lesion. Abdominal vasculature: There is advanced atherosclerotic calcification and mild ectasia of the abdominal aorta. Bowel: There is postoperative change from left colon resection with right lower quadrant colostomy. No bowel obstruction is seen. A small bowel anastomosis is noted in the left lower quadrant. A sigmoid stump is noted in the pelvis and contains scattered diverticula. The appendiceal tip is distended and fluid- filled, measuring up to 9 mm in diameter. There is no periappendiceal inflammation. Peritoneum: There is no intraperitoneal free air or abdominal ascites. Lymphadenopathy: None. Pelvic viscera: The bladder, uterus, and adnexa are normal as visualized. Skeletal structures: The skeletal structures are heterogeneously osteopenic. There is severe chronic compression deformity of T12 and L1. Milder chronic compression deformities are noted involving T10, L2, L3, and L4. Multilevel spondylotic changes observed. No lytic or blastic lesions are seen. IMPRESSION: 1. Suboptimal examination without oral and IV contrast. 2. The gallbladder wall appears thickened there is pericholecystic stranding. Correlate clinically for evidence of acute cholecystitis. Ultrasound could be considered for further assessment. 3. Cardiomegaly and changes of chronic interstitial lung disease are similar to previous. 4. Status post left colon resection with right lower quadrant colostomy. No bowel obstruction is seen. 5. The appendiceal tip is distended and fluid-filled measure up to 9 mm. There is no surrounding inflammation and no evidence of acute appendicitis. A mucocele could potentially have this appearance. Consider nonemergent surgical follow-up. 6. Additional findings as above. ACT 112: Negative or not required by law. Electronically signed by: Chadd Barry M.D. 11/01/2019 10:23 AM ULTRASOUND RIGHT UPPER QUADRANT ABDOMEN CLINICAL HISTORY: Abnormal CT. Right-sided abdominal pain. COMPARISON STUDY: Abdominal CT dated 11/01/2019. TECHNIQUE: Real-time, grayscale, and color flow sonography of the right upper quadrant of the abdomen was performed. Images are reviewed in the transverse and longitudinal planes. FINDINGS: Liver: The liver is normal in size and echotexture. There is no intrahepatic biliary ductal dilatation. The main portal vein is patent. Gallbladder: The gallbladder is not well-visualized. Gallstones and biliary slu dge identified. No definite gallbladder wall thickening is identified. A sonographic Stephens's sign was not reported. The common bile duct measures up to 0.4 cm in diameter. Pancreas: Not visualized due to overlying bowel gas. Right kidney: Survey images of the right kidney demonstrate normal size and echotexture. There is no hydronephrosis. Ascites: None. IMPRESSION: 1. The gallbladder and pancreas were not well visualized. 2. Cholelithiasis and biliary sludge. There is no definitive sonographic evidence of acute cholecystitis, but this is not well assessed. The CT findings remain concerning and a nuclear hepatobiliary scan is recommended to assess for cystic duct obstruction. 3. There is no intra or extrahepatic biliary ductal dilatation. ACT 112: Negative or not required by law. Electronically signed by: Chadd Barry M.D. 11/01/2019 12:53 PM Blood Pressure Blood Pressure Findings: Elevated blood pressure Blood Pressure Disposition: further management by hospitalist HARINDER Pereyra This is an 89-year-old female who presents to the ED with a chief complaint of back pain. The patient was seen here 2 days ago and had a CT scan of the lumbar spine that revealed an acute on chronic compression fracture of the L3 vertebrae. She also was noted to have some spinal stenosis. She states that she has the same pain now she did then although seems to be worse primarily at night. She states that she is taking Ultram as well as gabapentin which does n ot seem to help much. The patient came in for further evaluation. Her pain started about 6 days ago. Her initial vital signs revealed hypertension. Her physical exam reveals some tenderness to the lumbar paraspinal musculature region on the right. There is also some right CVA tenderness and right lower quadrant tenderness. The patient does have a colostomy. It appears healthy and is producing stool. The patient's exam was otherwise unremarkable. She has no obvious rash or abnormalities with regards to deformities to the back or lower extremities. She has full range of motion of the hip. I did review the CT scan from a couple of days ago. Because the patient has abdominal tenderness on my exam and some right CVA tenderness, further work-up was initiated. The patient CBC was normal. Chemistry panel was unremarkable. A CT scan of the abdomen pelvis was performed and there was some concerns about possible findings suggesting cholecystitis. Ultrasound was obtained which was equivocal. They recommended further evaluation with a HIDA scan. The patient tolerated IV fentanyl well here. I spoke with the hospitalist about further inpatient evaluation. She would benefit from a HIDA scan and possibly pain management evaluation for her pain which is felt to be related to her compression fracture L3 nerve root pain. Fentanyl patch may be an option for pain management or as per pain management service. Impression & Plan Compression fracture of L3 vertebra, Back pain, Right sided abdominal pain Discharge Plan Visit Data Chief Complaint: Back Injury/Pain Stated Complaint: back pain ED Provider: Lavelle Corrigan Discharge Problem: Compression fracture of L3 vertebra, Back pain, Right sided abdominal pain Patient Disposition: Admitted As Inpatient Forms Stand Alone Forms: [facility] Prescriptions Prescriptions: No Action (DME) [place] Prep W[place] [facility] [place] Dose Instructions .ROUTE .MEDSUPPLY Qty: 1 RF: 0 diclofenac sodium [Voltaren] 1 % gel 4 gm TOP QID Qty: 100 RF: 3 tramadol 50 mg tablet 25 mg PO QID RF: 0 omeprazole 20 mg tablet,delayed release (DR/EC) 20 mg PO DAILY Qty: 30 RF: 5 telmisartan 80 mg tablet 80 mg PO QAM RF: 0 Elmiron 100 mg capsule 100 mg PO DAILY RF: 0 gabapentin 300 mg capsule 300 mg PO BID RF: 0 amlodipine 5 mg tablet 5 mg PO DAILY RF: 0 Alphagan P 0.1 % drops 1 drp OPB BID RF: 0 baclofen 5 mg tablet See Rx Instructions .ROUTE .COMPLEX PRN (Reason: pain) Qty: 20 RF: 0 methenamine hippurate 1 gram Tablet 1 g PO HS RF: 0 cholecalciferol (vitamin D3) [Vitamin D3] 1,000 unit Tablet 4,000 unit PO QAM RF: 0 loratadine [Claritin] 10 mg tablet 10 mg PO QAM RF: 0 Referrals Referrals: Seth Pendleton MD [Primary Care Provider] - Discharge Problem: Compression fracture of L3 vertebra Qualifiers: Encounter type: subsequent encounter Fracture healing: with routine healing Qualified Code(s): S32.030D - Wedge compression fracture of third lumbar vertebra, subsequent encounter for fracture with routine healing Back pain Qualifiers: Back pain location: back pain in unspecified location Chronicity: unspecified Back pain laterality: unspecified Qualified Code(s): M54.9 - Dorsalgia, unspecified The scribe's documentation has been prepared under my direction and personally reviewed by me in its entirety. I confirm that the note above accurately reflects all work, treatment, procedures, and medical decision making performed by me.
[2019-11-01 09:35] LABS: Albumin Globulin Ratio 0.8 (0.9-2); Alkaline Phosphatase 64 U/L (45-117); Bilirubin,Total 0.3 mg/dl (0.2-1); Globulin 4.7 gm/dl (2.5-4.0); Total Protein 8.2 gm/dl (6.4-8.2)
[2019-11-01 10:18] LABS: Appearance Urine Clear (Clear); Bacteria Urine Automated Negative (Negative); Bilirubin Urine Negative (Negative); Blood Urine Trace (Negative); Cast Urine Automated 0 /lpf (0-5); Color Urine Yellow; Epithelial Cell Urine Auto 0-5 /lpf (0-5); Glucose Urine UA Negative (Negative); Ketones Urine Negative (Negative); Leukocyte Esterase Urine Negative (Negative); Nitrite Urine Negative (Negative); Protein Urine Negative (Negative); RBC Urine Automated 0-4 /hpf (0-4); Specific Gravity Urine 1.006 (1.000-1.030); Urobilinogen Urine Negative (Negative); WBC Urine Automated 0 /hpf (0-5)
--- NOTE | 2019-11-01 10:25 | CT Scan Report ---
CT SCAN OF THE ABDOMEN AND PELVIS WITHOUT IV CONTRAST CLINICAL HISTORY: Right lower quadrant abdominal pain. COMPARISON STUDY: Abdominal CT dated 09/23/2019. Pelvic CT dated 10/30/2019. TECHNIQUE: CT scan of the abdomen and pelvis is performed from the lung bases to the proximal femora. Images are reviewed in the axial, sagittal, and coronal planes. IV contrast was not administered for this examination as per the referring clinician. Note that the examination was performed in suboptim al fashion without oral and IV contrast. A dose lowering technique was utilized adhering to the princ iples of SOS[facility]. CT DOSE: 414.67 mGycm FINDINGS: Lung bases: The heart is enlarged and without pericardial effusion. There is advanced chronic calcifi cation of the visualized thoracic aorta. The coronary arteries are densely calcified. Changes of rad technologist albaro interstitial lung disease are noted at the lung bases. There is no airspace consolidation typical for pneumonia or pleural effusion. Pleural thickening is noted at the right lung base. There is a sm all hiatal hernia. Liver: The unenhanced liver is normal in size, contour, and attenuation. There is no intrahepatic shelia iary ductal dilatation. Gallbladder: The gallbladder is mildly distended. The wall appears thickened and there is pericholecy stic stranding. Spleen: Normal in size and attenuation. Pancreas: The unenhanced pancreas is moderately atrophic and grossly unremarkable. Adrenal glands: Unremarkable. Kidneys: The unenhanced kidneys demonstrate cortical atrophy and are without hydronephrosis. There ar e no renal calculi identified. There is no evidence of contour deforming renal mass lesion. Abdominal vasculature: There is advanced atherosclerotic calcification and mild ectasia of the abdomi nal aorta. Bowel: There is postoperative change from left colon resection with right lower quadrant colostomy. N o bowel obstruction is seen. A small bowel anastomosis is noted in the left lower quadrant. A sigmoid stump is noted in the pelvis and contains scattered diverticula. The appendiceal tip is distended an d fluid-filled, measuring up to 9 mm in diameter. There is no periappendiceal inflammation. Peritoneum: There is no intraperitoneal free air or abdominal ascites. Lymphadenopathy: None. Pelvic viscera: The bladder, uterus, and adnexa are normal as visualized. Skeletal structures: The skeletal structures are heterogeneously osteopenic. There is severe chronic compression deformity of T12 and L1. Milder chronic compression deformities are noted involving T10, L2, L3, and L4. Multilevel spondylotic changes observed. No lytic or blastic lesions are seen. IMPRESSION: 1. Suboptimal examination without oral and IV contrast. 2. The gallbladder wall appears thickened there is pericholecystic stranding. Correlate clinically fo r evidence of acute cholecystitis. Ultrasound could be considered for further assessment. 3. Cardiomegaly and changes of chronic interstitial lung disease are similar to previous. 4. Status post left colon resection with right lower quadrant colostomy. No bowel obstruction is seen . 5. The appendiceal tip is distended and fluid-filled measure up to 9 mm. There is no surrounding infl ammation and no evidence of acute appendicitis. A mucocele could potentially have this appearance. Co nsider nonemergent surgical follow-up. 6. Additional findings as above. ACT 112: Negative or not required by law. Electronically signed by: Chadd Barry M.D. 11/01/2019 10:23 AM
[2019-11-01] MEDS ORDERED: fentaNYL citrate 100 MCG/2 ML VIAL IV STA ×2 (11:35→13:01)
--- NOTE | 2019-11-01 12:54 | Ultrasound Report ---
ULTRASOUND RIGHT UPPER QUADRANT ABDOMEN CLINICAL HISTORY: Abnormal CT. Right-sided abdominal pain. COMPARISON STUDY: Abdominal CT dated 11/01/2019. TECHNIQUE: Real-time, grayscale, and color flow sonography of the right upper quadrant of the abdomen was performed. Images are reviewed in the transverse and longitudinal planes. FINDINGS: Liver: The liver is normal in size and echotexture. There is no intrahepatic biliary ductal dilatatio n. The main portal vein is patent. Gallbladder: The gallbladder is not well-visualized. Gallstones and biliary sludge identified. No def inite gallbladder wall thickening is identified. A sonographic Stephens's sign was not reported. The co mmon bile duct measures up to 0.4 cm in diameter. Pancreas: Not visualized due to overlying bowel gas. Right kidney: Survey images of the right kidney demonstrate normal size and echotexture. There is no hydronephrosis. Ascites: None. IMPRESSION: 1. The gallbladder and pancreas were not well visualized. 2. Cholelithiasis and biliary sludge. There is no definitive sonographic evidence of acute cholecysti tis, but this is not well assessed. The CT findings remain concerning and a nuclear hepatobiliary sca n is recommended to assess for cystic duct obstruction. 3. There is no intra or extrahepatic biliary ductal dilatation. ACT 112: Negative or not required by law. Electronically signed by: Chadd Barry M.D. 11/01/2019 12:53 PM
[2019-11-01] MEDS ORDERED: ACETAMINOPHEN 500 MG TAB PO STA (13:12)
--- NOTE | 2019-11-01 13:53 | History & Physical Report ---
Date of Service November 01, 2019 Assessment & Plan (1) Lumbar radiculopathy: Suspected. The patient's RLE pain seems to be radicular in origin. Follows an L2 or L3 dermatomal distribution. Certainly right hip arthritis could contribute to groin pain as well but her hip range of motion is actually quite good today. In setting of known L3 acute/chronic compression fracture (CT lumbar spine a few days ago done in ER shows the L3 fracture) I am concerned there could be a bone fragment causing nerve compromise. Alternatively, she could have spinal stenosis or other lumbar process causing the presumed radicular symptoms. Will obtain MRI lumbar spine tonight and re-eval. Will ask Dr Sanchez to see from orthopedics. Start decadron 4mg IV q12h for pain. Morphine 1mg q4h prn pain. K-pad heating pad. Tylenol 1gm TID. Increase gabapentin to 400mg TID (was taking 300mg TID at home). Cont tramadol 50mg qid for now. Could consider nucynta extended release OR tramadol extended release if she needs more pain control. Doesn't tolerate oral narcotics that well by history. PT, OT evals if MRI is stable. (2) Compression fracture of L3 vertebra: acute/chronic. start miacalcin nasal spray daily. see "lumbar radiculopathy" re: details of pain control. consider orthotics consult for back brace. Dr Sanchez asked to consult. MRI l-spine tonight. of note -- 25,OH vit D level last month was 35. (3) Abnormal CT of the abdomen: The pt's appendix is abnormal on CT today but no signs of acute appendicitis. This could represent an appendiceal cancer. She follows with Dr Lomax - could consult him while here for his opinion on this. I do not think this is contributing to her back or right leg symptoms, however. She reports no GI symptoms other than occasional abdominal discomfort. No pain with eating. (4) Gallstones: Although she has gallstones on CT and u/s I do not think she is having biliary tract pain/colic or symptoms from her gall bladder. LFTs are normal, wbc count is normal, she has no RUQ abd pain, and has had no post-prandial abdominal pain. Defer on HIDA for now. Low threshold for such, however, if she were to develop any abdominal symptoms. (5) CKD (chronic kidney disease) stage 3, GFR 30-59 ml/min: Baseline CrCl 40-60. BMP stable today. (6) Anemia: Chronic. Baseline Hb 10.5 to high 11's. Hb is stable today. (7) Hypertension: BPs were markedly elevated in ER upon presentation. Suspect it was pain-related. She also has known white-coat phenomenon. Would treat her back pain. Resume her normal home BP meds. And simply follow for now. Adjust meds as needed. (8) History of colon cancer: x 2. two prior colonic resections with ostomy formation during 2nd resection. primary surgeon - Dr Lomax. MRI of l-spine will r/o bony mets. (9) Osteoarthritis of hips, bilateral: Recent x-rays show at least moderate OA on right. Certainly OA could contribute to some of her right thigh/groin symptoms but I feel the bulk of her presentation is due to lumbar back pain. (10) Colostomy in place: Functioning well with normal output. (11) DVT prophylaxis: heparin 5000 BID to be placed on observation status select a med/tele bed family updated at bedside patient's just last week - she had been 70+ years! will need PT/OT evals History of Present Illness Chief Complaint: back pain Primary Care Provider: Filiberto Pendleton MD 89yo female with CKD stage 3, chronic low back pain, h/o colon ca x 2 with two prior colonic resections and colostomy status, and HTN who presents with acute/chronic back pain, mainly right-sided, with radiation to the right hip and then the medial anterior right thigh. Her pain started to worsen 3-4 weeks ago in late September 2019. Denies a fall or injury that incited the pain. Pain does not radiate below the right knee. Pain is constant and feels like a toothache "all the time" and, when it is worst, it is sharp in quality. Takes chronic tramadol 25mg QID and gabapentin but neither has been helping. In fact she recently increased the tramadol to 50mg each dose and this was not effective. She also typically takes gabapentin BID and she recently increased this to TID dosing - also without any improvement. Pain is worst at night-time. She has a mild limp in her gait because of the pain. Seen in the [facility] ER a few days ago - had CT lumbar spine showing L3 acute/chronic compression fracture - d/c home with baclofen. This was not effective; actually she states it made her pain worse. Voltaren gel was recently called in by her PCP but not effective. Also taking tylenol without relief of pain. No abdominal pain, vomiting, nausea, emesis, or other GI symptoms. No fevers or chills. Appetite has been normal. Reports normal stool output from her ostomy. Denies recent weight loss. Allergies Allergy/AdvReac Type Severity Reaction Status Date / Time diltiazem Allergy Unknown TIGHTENING Verified 11/01/19 09:18 OF THROAT erythromycin base Allergy Unknown PT UNSURE Verified 11/01/19 09:18 nifedipine Allergy Unknown EXACERBATION Verified 11/01/19 09:18 INTERSTITIAL CYCSTITIS nitrofurantoin Allergy Unknown RASH Verified 11/01/19 09:18 quinine Allergy Unknown PT UNSURE Verified 11/01/19 09:18 Sulfa (Sulfonamide Allergy Unknown RASH Verified 11/01/19 09:18 Antibiotics) azithromycin [From Zithromax] AdvReac Intermediate Rash Verified 11/01/19 09:18 [email or web address] AdvReac Intermediate n/v Verified 11/01/19 09:18 Beta-Blockers AdvReac Mild "Secondary Verified 11/01/19 09:18 (Beta-Adrenergic Bloc AVB" Cipro AdvReac Unknown GI SYMPTOMS Verified 04/22/18 09:21 ciprofloxacin AdvReac Unknown GI SYMPTOMS Verified 11/01/19 09:18 hydralazine AdvReac Unknown dysuria Verified 11/01/19 21:25 hydrochlorothiazide AdvReac Unknown Rash Verified 11/01/19 09:18 hydrocodone AdvReac Unknown GI UPSET Verified 11/01/19 09:18 lisinopril AdvReac Unknown "INTOLERANCE" Verified 11/01/19 09:[address] PENDLETON losartan AdvReac Unknown JITTMILENA NICHOLE Verified 11/01/19 09:18 DOHERTY meperidine AdvReac Unknown GI UPSET Verified 11/01/19 09:18 methenamine AdvReac Unknown HX STOMACH Verified 11/01/19 09:18 PAIN- SEE NOTES metronidazole AdvReac Unknown STOMACH Verified 11/01/19 09:18 PAIN Phenothiazines AdvReac Unknown SHAKEY Verified 11/01/19 09:18 prochlorperazine AdvReac Unknown "BODY Verified 11/01/19 09:18 SHAKES" Quinolones AdvReac Unknown CIPRO- Verified 11/01/19 09:18 NAUSEA, NERVOUS, CHILLS simvastatin AdvReac Unknown STOMACH Verified 11/01/19 09:18 PAIN spironolactone AdvReac Unknown RECTAL Verified 11/01/19 09:18 PRESSURE, PAIN terazosin AdvReac Unknown LIGHTHEADEDNESS Verified 11/01/19 09:18 AND NAUSEA valdecoxib AdvReac Unknown GI SYMPTOMS Verified 11/01/19 09:18 clindamycin AdvReac Unknown Verified 11/01/19 09:18 Quinidine-Quinine Analogues AdvReac Unknown Verified 11/01/19 09:18 ([facility] Home Medications Home Medications Medication Instructions Recorded Confirmed Type cholecalciferol (vitamin D3) 4,000 unit PO QAM 07/28/18 11/01/19 History [Vitamin D3] methenamine hippurate 1 g PO HS 07/28/18 11/01/19 History ostomy supplies #1 ea 05/20/19 11/01/19 Rx omeprazole 20 mg tablet,delayed 20 mg PO DAILY #30 tab 10/07/19 11/01/19 Rx release tramadol 50 mg tablet 25 mg PO QID tab 10/07/19 11/01/19 History loratadine 10 mg tablet 10 mg PO QAM 10/27/19 11/01/19 History diclofenac sodium 1 % topical gel 4 gm TOP QID #100 gm 10/29/19 11/01/19 Rx amlodipine 5 mg PO DAILY 10/30/19 11/01/19 History baclofen See Rx Instructions .ROUTE 10/30/19 11/01/19 Rx .COMPLEX PRN #20 tab brimonidine [Alphagan P] 1 drp OPB BID 10/30/19 11/01/19 History gabapentin 300 mg PO BID 10/30/19 11/01/19 History pentosan polysulfate sodium 100 mg PO DAILY 10/30/19 11/01/19 History [Elmiron] telmisartan 80 mg PO QAM 10/30/19 11/01/19 History Past Med/Surg History Medical History Anemia Aortic insufficiency Cardiac murmur No significant valve disease per 2017 echo Carotid artery stenosis Carotid Doppler 07/23/2016 showed 50-69% stenosis bilateral internal carotid arteries. Per PCP 08/26/18 "Continue with current treatment. Previously had plan to repeat carotid Doppler for re-evaluation. Given the patient's advanced age and other problems though we decided not to pursue further carotid Doppler screening at least at this time." Chronic diastolic CHF (congestive heart failure) CKD (chronic kidney disease) stage 3, GFR 30-59 ml/min Colon cancer 2015--sx, chemo 11/2018 -recurrence w/ mets to peritoneum & lymph nodes Colostomy in place REPORTS "FISSURE LEFT SIDE OF ABDOMEN" Elevated CEA Folate deficiency GERD (gastroesophageal reflux disease) Glaucoma History of vertebral fracture PER 06/2018 XRAY: "There is a new superior endplate L4 compression fracture. There is an old L2 compression fracture. There are severe T12 and L1 compression fractures. The bones are osteopenic. There are multilevel degenerative changes." Hyperlipidemia Hypertension ILD (interstitial lung disease) No SOB with stairs Interstitial cystitis MRSA nasal colonization Osteoarthritis Osteoporosis Renal artery stenosis Seasonal allergies Second degree atrioventricular block Skin cancer Vertigo Surgical History H/O exploratory laparotomy 2016. status post open transverse colectomy with primary anastomosis, omentectomy, excision or biopsy of left liver lesion performed by Dr. Lomax 12/13/2016. Unfortunately postoperatively she developed intra- abdominal abscesses requiring re-exploration of her abdomen, washout of the abscesses, takedown of the primary anastomosis and creation of a colostomy and mucous fistula. History of bilateral cataract extraction History of bowel resection 2015 for colon cancer--colostomy History of cervical polypectomy History of colonoscopy History of exploratory laparotomy 11/27/18 [facility] - left hemicolectomy and small bowel resection with Dr. Lomax. Grade 1 view with MAC 3 and 7.0 ETT, EZ mask. History of temporal artery biopsy History of tooth extraction all teeth removed Family History Daughter Family history of breast cancer Father , age 93, "old age" No problems noted. 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 Other Information That Helps Us Care for You: No other: 7 children Feels Safe at Home: Yes Safety Concerns: Feels Safe At This Time Smoking Status: Never smoker Do You Dip or Chew Tobacco: No ; Second Hand Exposure: No ; Tobacco Cessation Education Requested by Patient: No Hx Alcohol Use: No Hx Substance Use: No Seatbelt Use: always Sunscreen Use: No Review of Systems Constitutional: no fever, no chills, no anorexia and no weight loss Eyes: no worsening vision Ear, Nose, Mouth, Throat: no nasal congestion, no sore throat and no dysphagia Respiratory: no dyspnea and no dyspnea on exertion Cardiovascular: no chest pain and no edema Gastrointestinal: no abdominal pain, no nausea, no vomiting and no change in stools Genitourinary: no dysuria Musculoskeletal: as per Subjective / HPI and + back pain Integumentary: no rash Neurologic: no paralysis, no loss of sensation, no numbness and no paresthesia Psychiatric: no depression Endocrine: no diabetes Hematologic / Lymphatic: no easy bleeding and no easy bruising Physical Exam Constitutional: well developed, well nourished and average body habitus; no acute distress and no altered mental status Eyes: PERRL ENMT: external ear and nose normal, oropharynx normal Ears: no TM abnormality Neck: trachea midline, no thyromegaly Respiratory: normal respiratory effort, lungs clear to auscultation Cardiovascular: Rate/Rhythm: regular rate and regular rhythm Heart Sounds: normal S1, normal S2 and + murmur (2/6 systolic LSB) Vessels: posterior tibial pulses present and dorsalis pedis pulses present; no JVD Extremities: no edema Gastrointestinal (Abdomen): normal bowel sounds, soft, nontender, no hepatosplenomegaly ostomy bag with brown stool; multiple scars on abdominal wall Musculoskeletal: Mild l-spine tenderness to palpation in lower midline lumbar region. Mild paraspinal tenderness right lumbar region. No pain over trochanteric bursal region. right hip - full passive ROM (flexion, extension, rotation) without significant pain or tenderness. pelvis - no pain to external palpation. knees - OA changes, crepitus with passive ROM. Skin: no rashes, warm and dry Neurologic: deep tendon reflexes 2+ bilaterally and moves all extremities (strength 5/5 x 4 extremities ) Psychiatric: A+Ox3, euthymic affect Lymphatic: no cervical lymphadenopathy Results & Data Vital Signs (Past 12 Hours) Vital Signs Temp Pulse Pulse Resp BP BP Pulse Ox 11/01/19 11:45 77 20 209/77 H 98 11/01/19 10:14 68 68 20 222/68 H 95 11/01/19 08:38 36.7 C 80 20 194/62 H 97 Laboratory Results Laboratory Results - last 24 hr 11/01/19 11/01/19 11/01/19 09:05 09:05 10:06 WBC 5.91 RBC 3.57 L Hgb 10.7 L Hct 33.4 L MCV 93.6 MCH 30.0 MCHC 32.0 RDW Std Deviation 49.5 H RDW Coeff of Wayne 14.4 Plt Count 322 MPV 8.8 Immature Gran % (Auto) 0.2 Neut % (Auto) 67.5 Lymph % (Auto) 20.3 Wallace % (Auto) 9.5 Eos % (Auto) 2.2 Baso % (Auto) 0.3 Immature Gran # (Auto) 0.01 Neut # (Auto) 3.99 Lymph # (Auto) 1.20 Wallace # (Auto) 0.56 Eos # (Auto) 0.13 Baso # (Auto) 0.02 Sodium 137 Potassium 4.0 Chloride 103 Carbon Dioxide 28 Anion Gap 6.0 BUN 19 H Creatinine 1.11 Est Cr Clr Drug Dosing Not Reportable Est GFR ( Amer) 51.7 Est GFR (Non-Af Amer) 44.6 BUN/Creatinine Ratio 17.2 Glucose 104 H Calcium 8.7 Total Bilirubin 0.3 AST 12 L ALT 16 Alkaline Phosphatase 64 Total Protein 8.2 Albumin 3.5 Globulin 4.7 H Albumin/Globulin Ratio 0.8 L Urine Color Yellow Urine Appearance Clear Urine pH 7.0 Ur Specific Wallace 1.006 Urine Protein Negative Urine Glucose (UA) Negative Urine Ketones Negative Urine Blood Trace H Urine Nitrite Negative Urine Bilirubin Negative Urine Urobilinogen Negative Ur Leukocyte Esterase Negative Urine WBC (Auto) 0 Urine RBC (Auto) 0-4 U Hyaline Cast (Auto) 0 U Epithel Cells (Auto) 0-5 Urine Bacteria (Auto) Negative Code Status & VTE Plan Code Status DNR/DNI VTE Prophylaxis Plan VTE Prophylaxis will be ordered: Yes PG Care Time/CCT Total # of Minutes Spent Total Time Spent with Patient: Total time spent is greater than 50% in coordination of care (as documented) at patient's floor/unit and/or counseling patient: Coding Level of Care Code 58359 OBS Care - Level 3 Diagnoses Lumbar radiculopathy M54.16 Compression fracture of L3 vertebra S32.030D Encounter type: subsequent encounter Fracture healing: with routine healing Abnormal CT of the abdomen R93.5 Gallstones K80.20 CKD (chronic kidney disease) stage 3, GFR 30-59 ml/min N18.3 Anemia D64.9 Anemia type: unspecified type Hypertension I10 Hypertension type: essential hypertension History of colon cancer Z85.038 Osteoarthritis of hips, bilateral M16.0 Osteoarthritis type: primary Colostomy in place Z93.3 DVT prophylaxis Z29.9 (1) Compression fracture of L3 vertebra Encounter type: subsequent encounter Fracture healing: with routine healing Qualified Code(s): S32.030D - Wedge compression fracture of third lumbar vertebra, subsequent encounter for fracture with routine healing (2) Osteoarthritis of hips, bilateral Osteoarthritis type: primary Qualified Code(s): M16.0 - Bilateral primary osteoarthritis of hip (3) Anemia Anemia type: unspecified type Qualified Code(s): D64.9 - Anemia, unspecified (4) Hypertension Hypertension type: essential hypertension Qualified Code(s): I10 - Essential (primary) hypertension
[2019-11-01] MEDS ORDERED: DEXAMETHASONE SOD INJ 4 MG/ML VIAL IV SCH (15:00)
[2019-11-01] MEDS ORDERED: ONDANSETRON INJ 2 MG/ML 2 ML VIAL ONE (15:19)
[2019-11-01] MEDS ORDERED: MoRPHine SULFATE 2 MG/ML CARP IV PRN (15:57)
[2019-11-01] MEDS ORDERED: OSTOMY SUPPLIES SCH (15:57)
[2019-11-01] MEDS ORDERED: ONDANSETRON INJ 2 MG/ML 2 ML VIAL IV PRN (15:57)
[2019-11-01] MEDS: TRAMADOL HCL 50 MG TABLET PO SCH ×2 (17:07→20:34)
[2019-11-01] MEDS: LIDOCAINE 5% 1 PATCH TD SCH (17:08)
[2019-11-01] MEDS: CALCITONIN SALMON NA 200 IU/AC 3.7 ML BTL SCH (17:09)
[2019-11-01] MEDS: DICLOFENAC SOD 1% GEL 100 GM TUBE EXT SCH ×2 (17:09→20:36)
[2019-11-01] MEDS: ACETAMINOPHEN 500 MG TAB PO SCH ×2 (17:09→20:36)
--- NOTE | 2019-11-01 17:41 | Magnetic Resonance Report ---
MRI OF THE LUMBAR SPINE WITHOUT IV CONTRAST CLINICAL HISTORY: Right-sided lumbar radiculopathy. COMPARISON STUDY: CT of the lumbar spine dated 10/30/2019. MRI of lumbar spine dated 12/24/2017. Abdomi nal CT dated 09/23/2019. TECHNIQUE: MRI of lumbar spine was performed utilizing various T1 and T2-weighted sequences in the ax ial and sagittal planes. IV contrast was not administered for this examination. The examination is mi ldly degraded by motion artifact. FINDINGS: Lumbar spine: Fatty marrow change is seen throughout. There are severe chronic compression deformitie s of T12 and L1. There are moderate chronic compression deformities of L2 and L4. Mild compression de formities are noted in T10 and T11. There is an acute to subacute on chronic compression deformity of L3 with moderate loss of height and mild marrow edema. No retropulsed fragments are identified. The transverse and spinous processes are intact. There is no evidence of spondylolysis. No destructive too ny lesion is seen. Anterior and lateral marginal osteophytes are seen throughout. Intervertebral discs: Degenerative disc desiccation is noted throughout the lumbar spine. There is on ly minimal loss of height. Spinal cord: The visualized spinal cord is normal in morphology and signal intensity. The conus medul maura terminates at the level of L1. The nerve roots of the cauda equina are normal in morphology. T12-L1: The central canal and neural foramina appear patent. L1-L2: The central canal is clear. Mild facet arthropathy is noted. There is moderate to severe bilat eral neural foraminal stenosis. L2-L3: The central canal is clear. Minimal disc bulge is noted. In conjunction with facet arthropathy , this causes moderate bilateral neural foraminal stenosis, right greater than left. L3-L4: There is hypertrophy of the ligamentum flavum. The minimum AP canal diameter measures 10 mm. F acet arthropathy is noted and contributes to mild bilateral neural foraminal stenosis. L4-L5: There is hypertrophy of the ligamentum flavum. The central canal is clear. Facet arthropathy c ontributes to mild bilateral neural foraminal stenosis. L5-S1: The central canal is clear. Facet arthropathy contributes to mild bilateral neural foraminal s tenosis. Sacrum: The visualized sacrum is normal in morphology and signal intensity. Soft tissues: There is fatty atrophy of the paraspinous musculature. The visualized retroperitoneal s tructures are grossly unremarkable but incompletely assessed. IMPRESSION: 1. There is an acute to subacute on chronic compression deformity of L3 with moderate loss of height and mild endplate edema. This is unchanged from the 10/30/2019 CT scan. 2. Additional chronic compression deformities are similar to previous. 3. There is no significant acquired compromise of the central canal. 4. Mild multilevel spondylosis as above. 5. No destructive bony lesion is identified. Dictated: 11/01/2019 5:06 PM Transcribed: 11/01/2019 5:38 PM Pilar [id number] [email or web address] Electronically signed by: Chadd Barry M.D. 11/01/2019 5:40 PM
[2019-11-01] MEDS: GABAPENTIN 400 MG CAP PO SCH (20:35)
[2019-11-01] MEDS: HEPARIN SOD 5,000 UNIT/0.5 ML VIAL SQ SCH (20:36)
[2019-11-01] MEDS ORDERED: METHENAMINE HIPPURATE 1 GM TAB PO SCH (21:00)
[2019-11-01] MEDS ORDERED: PANTOprazole 40 MG TAB PO STA ×2 (21:17)
[2019-11-01] MEDS: CALCIUM CARBONATE 500 MG CHEWABLE TAB PO PRN (21:40)
[2019-11-02] MEDS: CALCIUM CARBONATE 500 MG CHEWABLE TAB PO PRN ×2 (03:06→10:39)
[2019-11-02] MEDS: HEPARIN 100 UNIT/ML 5ML FLUSH FLUSH PRN ×3 (05:51→15:54)
[2019-11-02] MEDS ORDERED: DEXAMETHASONE SOD PHOSPHATE 4 MG in SYRINGE 0 ML IV SCH (06:00)
[2019-11-02 06:46] LABS: BUN Creatinine Ratio 22.8 (10-20); Calcium 8.9 mg/dl (8.5-10.1); Creatinine Clr Calc Pharmacy 29.1 ml/min; Est GFR (African American) 46.1; Est GFR (Non-African American) 39.8; Potassium 4.7 mmol/L (3.5-5.1)
[2019-11-02] MEDS: GABAPENTIN 400 MG CAP PO SCH ×2 (08:40→13:44)
[2019-11-02] MEDS: LIDOCAINE 5% 1 PATCH TD SCH (08:42)
[2019-11-02] MEDS: CALCITONIN SALMON NA 200 IU/AC 3.7 ML BTL SCH (08:42)
[2019-11-02] MEDS: ACETAMINOPHEN 500 MG TAB PO SCH ×2 (08:44→13:44)
[2019-11-02] MEDS: TRAMADOL HCL 50 MG TABLET PO SCH ×2 (08:45→13:44)
[2019-11-02] MEDS: DICLOFENAC SOD 1% GEL 100 GM TUBE EXT SCH ×2 (08:46→13:44)
[2019-11-02] MEDS: HEPARIN SOD 5,000 UNIT/0.5 ML VIAL SQ SCH (08:48)
[2019-11-02] MEDS ORDERED: POLYETHYLENE (MIRALAX) 17 GM PACK PO SCH (09:00)
[2019-11-02] MEDS ORDERED: PANTOprazole 40 MG TAB PO SCH ×2 (09:00)
[2019-11-02] MEDS ORDERED: PENTOSAN POLYSULFATE SODIUM 100 MG CAP PO SCH (09:00)
[2019-11-02] MEDS ORDERED: LORATADINE 10 MG TAB PO SCH (09:00)
[2019-11-02] MEDS ORDERED: TELMISARTAN 40 MG TAB PO SCH (09:00)
[2019-11-02] MEDS ORDERED: AMLODIPINE BESYLATE 5 MG TAB PO SCH (09:00)
[2019-11-02] MEDS ORDERED: CHOLECALCIFEROL 1,000 UNITS 25 MCG TAB PO SCH (09:00)
--- NOTE | 2019-11-02 12:20 | Orthopedic Consultation ---
Date of Consultation November 02, 2019 Assessment & Plan (1) Compression fracture of L3 vertebra: MRI does reveal evidence of an acute to subacute fracture of L3. I do not appreciate any evidence of significant neural compression throughout the lumbar spine. 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 She is feeling comfortable at this time. I have discussed with the family that if she has a return of symptoms she may want to see us in our clinic and possibly undergo some injections. Do not see any indication for surgical intervention at this time. Present on Admission?: Yes History of Present Illness Reason for Consultation: Back and right leg pain Attending Physician: Pierre Degroot MD History of Present Illness This a very pleasant 89-year-old female that has a history of compression fracture diagnosed several months ago. Unfortunately over the past several days she began experiencing significant pain in the right buttock and extending down the groin and anterior thigh. Not extend below the right knee. It did not involve the left lower extremity. It is not related any trauma fall or event. She denies any loss of bowel bladder control. Allergies Allergy/AdvReac Type Severity Reaction Status Date / Time diltiazem Allergy Unknown TIGHTENING Verified 11/01/19 09:18 OF THROAT erythromycin base Allergy Unknown PT UNSURE Verified 11/01/19 09:18 nifedipine Allergy Unknown EXACERBATION Verified 11/01/19 09:18 INTERSTITIAL CYCSTITIS nitrofurantoin Allergy Unknown RASH Verified 11/01/19 09:18 quinine Allergy Unknown PT UNSURE Verified 11/01/19 09:18 Sulfa (Sulfonamide Allergy Unknown RASH Verified 11/01/19 09:18 Antibiotics) azithromycin [From Zithromax] AdvReac Intermediate Rash Verified 11/01/19 09:18 [email or web address] AdvReac Intermediate n/v Verified 11/01/19 09:18 Beta-Blockers AdvReac Mild "Secondary Verified 11/01/19 09:18 (Beta-Adrenergic Bloc AVB" Cipro AdvReac Unknown GI SYMPTOMS Verified 04/22/18 09:21 ciprofloxacin AdvReac Unknown GI SYMPTOMS Verified 11/01/19 09:18 hydralazine AdvReac Unknown dysuria Verified 11/01/19 21:25 hydrochlorothiazide AdvReac Unknown Rash Verified 11/01/19 09:18 hydrocodone AdvReac Unknown GI UPSET Verified 11/01/19 09:18 lisinopril AdvReac Unknown "INTOLERANCE" Verified 11/01/19 09:[address] COLON losartan AdvReac Unknown JITTERY,SHA Verified 11/01/19 09:18 DOHERTY meperidine AdvReac Unknown GI UPSET Verified 11/01/19 09:18 methenamine AdvReac Unknown HX STOMACH Verified 11/01/19 09:18 PAIN- SEE NOTES metronidazole AdvReac Unknown STOMACH Verified 11/01/19 09:18 PAIN Phenothiazines AdvReac Unknown SHAKEY Verified 11/01/19 09:18 prochlorperazine AdvReac Unknown "BODY Verified 11/01/19 09:18 SHAKES" Quinolones AdvReac Unknown CIPRO- Verified 11/01/19 09:18 NAUSEA, NERVOUS, CHILLS simvastatin AdvReac Unknown STOMACH Verified 11/01/19 09:18 PAIN spironolactone AdvReac Unknown RECTAL Verified 11/01/19 09:18 PRESSURE, PAIN terazosin AdvReac Unknown LIGHTHEADEDNESS Verified 11/01/19 09:18 AND NAUSEA valdecoxib AdvReac Unknown GI SYMPTOMS Verified 11/01/19 09:18 clindamycin AdvReac Unknown Verified 11/01/19 09:18 Quinidine-Quinine Analogues AdvReac Unknown Verified 11/01/19 09:18 ([facility] Home Medications Home Medications Medication Instructions Recorded Confirmed Type cholecalciferol (vitamin D3) 4,000 unit PO QAM 07/28/18 11/01/19 History [Vitamin D3] methenamine hippurate 1 g PO HS 07/28/18 11/01/19 History ostomy supplies #1 ea 05/20/19 11/01/19 Rx omeprazole 20 mg tablet,delayed 20 mg PO DAILY #30 tab 10/07/19 11/01/19 Rx release tramadol 50 mg tablet 25 mg PO QID tab 10/07/19 11/01/19 History loratadine 10 mg tablet 10 mg PO QAM 10/27/19 11/01/19 History diclofenac sodium 1 % topical gel 4 gm TOP QID #100 gm 10/29/19 11/01/19 Rx amlodipine 5 mg PO DAILY 10/30/19 11/01/19 History baclofen See Rx Instructions .ROUTE 10/30/19 11/01/19 Rx .COMPLEX PRN #20 tab brimonidine [Alphagan P] 1 drp OPB BID 10/30/19 11/01/19 History gabapentin 300 mg PO BID 10/30/19 11/01/19 History pentosan polysulfate sodium 100 mg PO DAILY 10/30/19 11/01/19 History [Elmiron] telmisartan 80 mg PO QAM 10/30/19 11/01/19 History Patient History Medical History Anemia Aortic insufficiency Cardiac murmur No significant valve disease per 2017 echo Carotid artery stenosis Carotid Doppler 07/23/2016 showed 50-69% stenosis bilateral internal carotid arteries. Per PCP 08/26/18 "Continue with current treatment. Previously had plan to repeat carotid Doppler for re-evaluation. Given the patient's advanced age and other problems though we decided not to pursue further carotid Doppler screening at least at this time." Chronic diastolic CHF (congestive heart failure) CKD (chronic kidney disease) stage 3, GFR 30-59 ml/min Colon cancer 2015--sx, chemo 11/2018 -recurrence w/ mets to peritoneum & lymph nodes Colostomy in place REPORTS "FISSURE LEFT SIDE OF ABDOMEN" Elevated CEA Folate deficiency GERD (gastroesophageal reflux disease) Glaucoma History of vertebral fracture PER 06/2018 XRAY: "There is a new superior endplate L4 compression fracture. There is an old L2 compression fracture. There are severe T12 and L1 compression fractures. The bones are osteopenic. There are multilevel degenerative changes." Hyperlipidemia Hypertension ILD (interstitial lung disease) No SOB with stairs Interstitial cystitis MRSA nasal colonization Osteoarthritis Osteoporosis Renal artery stenosis Seasonal allergies Second degree atrioventricular block Skin cancer Vertigo Surgical History H/O exploratory laparotomy 2017. status post open transverse colectomy with primary anastomosis, omentectomy, excision or biopsy of left liver lesion performed by Dr. Lomax 12/13/2016. Unfortunately postoperatively she developed intra- abdominal abscesses requiring re-exploration of her abdomen, washout of the abscesses, takedown of the primary anastomosis and creation of a colostomy and mucous fistula. History of bilateral cataract extraction History of bowel resection 2015 for colon cancer--colostomy History of cervical polypectomy History of colonoscopy History of exploratory laparotomy 11/27/18 [facility] - left hemicolectomy and small bowel resection with Dr. Lomax. Grade 1 view with MAC 3 and 7.0 ETT, EZ mask. History of temporal artery biopsy History of tooth extraction all teeth removed Family History Daughter Family history of breast cancer Father , age 93, "old age" No problems noted. 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 She has no pain to palpation or percussion of the thoracolumbar spine. She has tenderness palpation of the right SI joint. She does have a Lidoderm patch over the right SI joint. She does have evidence of a positive logroll on the right. Otherwise she exhibits plus out of 5 bilateral quadriceps plantar flexion dorsiflexion extensor hallucis longus. Sensory symmetric and intact. Results & Data ([facility]) Vital Signs (Past 12 Hours) Vital Signs Temp Pulse Pulse Resp BP Pulse Ox 11/02/19 07:35 36.8 C 72 16 159/53 H 91 11/02/19 05:08 97 H 11/02/19 03:40 36.8 C 66 20 126/67 96 (1) Compression fracture of L3 vertebra Encounter type: subsequent encounter Fracture healing: with routine healing Qualified Code(s): S32.030D - Wedge compression fracture of third lumbar vertebra, subsequent encounter for fracture with routine healing
--- NOTE | 2019-11-02 15:10 | Discharge Summary ---
Date of Service November 02, 2019 Admission HPI Per Admitting Provider 89yo female with CKD stage 3, chronic low back pain, h/o colon ca x 2 with two prior colonic resections and colostomy status, and HTN who presents with acute/chronic back pain, mainly right-sided, with radiation to the right hip and then the medial anterior right thigh. Her pain started to worsen 3-4 weeks ago in late September 2019. Denies a fall or injury that incited the pain. Pain does not radiate below the right knee. Pain is constant and feels like a toothache "all the time" and, when it is worst, it is sharp in quality. Takes chronic tramadol 25mg QID and gabapentin but neither has been helping. In fact she recently increased the tramadol to 50mg each dose and this was not effective. She also typically takes gabapentin BID and she recently increased this to TID dosing - also without any improvement. Pain is worst at night-time. She has a mild limp in her gait because of the pain. Seen in the [facility] ER a few days ago - had CT lumbar spine showing L3 acute/chronic compression fracture - d/c home with baclofen. This was not effective; actually she states it made her pain worse. Voltaren gel was recently called in by her PCP but not effective. Also taking tylenol without relief of pain. No abdominal pain, vomiting, nausea, emesis, or other GI symptoms. No fevers or chills. Appetite has been normal. Reports normal stool output from her ostomy. Denies recent weight loss. Admission Exam Per Admitting Provider Constitutional: well developed, well nourished and average body habitus; no acute distress and no altered mental status Eyes: PERRL ENMT: external ear and nose normal, oropharynx normal Ears: no TM abnormality Neck: trachea midline, no thyromegaly Respiratory: normal respiratory effort, lungs clear to auscultation Cardiovascular: Rate/Rhythm: regular rate and regular rhythm Heart Sounds: normal S1, normal S2 and + murmur (2/6 systolic LSB) Vessels: posterior tibial pulses present and dorsalis pedis pulses present; no JVD Extremities: no edema Gastrointestinal (Abdomen): normal bowel sounds, soft, nontender, no hepatosplenomegaly ostomy bag with brown stool; multiple scars on abdominal wall Musculoskeletal: Mild l-spine tenderness to palpation in lower midline lumbar region. Mild paraspinal tenderness right lumbar region. No pain over trochanteric bursal region. right hip - full passive ROM (flexion, extension, rotation) without significant pain or tenderness. pelvis - no pain to external palpation. knees - OA changes, crepitus with passive ROM. Skin: no rashes, warm and dry Neurologic: deep tendon reflexes 2+ bilaterally and moves all extremities (strength 5/5 x 4 extremities ) Psychiatric: A+Ox3, euthymic affect Lymphatic: no cervical lymphadenopathy Principal Diagnosis L2 radiculopathy L3 subacute compression fracture Sacroiliitis - inflammation of sacrum-iliac joint Discharge Exam Constitutional well developed, well nourished and average body habitus; no acute distress and no altered mental status Eyes + anicteric sclerae; normal pupil size ENMT external ear and nose normal, oropharynx normal Neck trachea midline, no thyromegaly Respiratory normal respiratory effort, lungs clear to auscultation Cardiovascular Rate/Rhythm: regular rate and regular rhythm Heart Sounds: normal S1, normal S2 and + murmur (2/6 systolic LSB) Vessels: no JVD Extremities: no edema Gastrointestinal (Abdomen) normal bowel sounds, soft, nontender, no hepatosplenomegaly Musculoskeletal Lower back - no central spinal tenderness, Right SI joint and paraspinal tenderness around L1-L3 on palpation. Pain described in L1/2 distribution appears resolved but still having residual numbness in this area. Right Hip - no groin pain with good ROM of right hip flex/int/ext rotation Skin no rashes, warm and dry Neurologic moves all extremities (strength 5/5 x RLE, no foot drop) and awake; no focal motor deficits Speech / Cognition: normal speech Motor/Sensory: no tremor Psychiatric A+Ox3, euthymic affect Discharge Data Allergies Allergy/AdvReac Type Severity Reaction Status Date / Time diltiazem Allergy Unknown TIGHTENING Verified 11/01/19 09:18 OF THROAT erythromycin base Allergy Unknown PT UNSURE Verified 11/01/19 09:18 nifedipine Allergy Unknown EXACERBATION Verified 11/01/19 09:18 INTERSTITIAL CYCSTITIS nitrofurantoin Allergy Unknown RASH Verified 11/01/19 09:18 quinine Allergy Unknown PT UNSURE Verified 11/01/19 09:18 Sulfa (Sulfonamide Allergy Unknown RASH Verified 11/01/19 09:18 Antibiotics) azithromycin [From Zithromax] AdvReac Intermediate Rash Verified 11/01/19 09:18 bexarotene AdvReac Intermediate n/v Verified 11/01/19 09:18 Beta-Blockers AdvReac Mild "Secondary Verified 11/01/19 09:18 (Beta-Adrenergic Bloc AVB" Cipro AdvReac Unknown GI SYMPTOMS Verified 04/22/18 09:21 ciprofloxacin AdvReac Unknown GI SYMPTOMS Verified 11/01/19 09:18 hydralazine AdvReac Unknown dysuria Verified 11/01/19 21:25 hydrochlorothiazide AdvReac Unknown Rash Verified 11/01/19 09:18 hydrocodone AdvReac Unknown GI UPSET Verified 11/01/19 09:18 lisinopril AdvReac Unknown "INTOLERANCE" Verified 11/01/19 09:[address] PENDLETON losartan AdvReac Unknown JITTERY,SHA Verified 11/01/19 09:18 DOHERTY meperidine AdvReac Unknown GI UPSET Verified 11/01/19 09:18 methenamine AdvReac Unknown HX STOMACH Verified 11/01/19 09:18 PAIN- SEE NOTES metronidazole AdvReac Unknown STOMACH Verified 11/01/19 09:18 PAIN Phenothiazines AdvReac Unknown SHAKEY Verified 11/01/19 09:18 prochlorperazine AdvReac Unknown "BODY Verified 11/01/19 09:18 SHAKES" Quinolones AdvReac Unknown CIPRO- Verified 11/01/19 09:18 NAUSEA, NERVOUS, CHILLS simvastatin AdvReac Unknown STOMACH Verified 11/01/19 09:18 PAIN spironolactone AdvReac Unknown RECTAL Verified 11/01/19 09:18 PRESSURE, PAIN terazosin AdvReac Unknown LIGHTHEADEDNESS Verified 11/01/19 09:18 AND NAUSEA valdecoxib AdvReac Unknown GI SYMPTOMS Verified 11/01/19 09:18 clindamycin AdvReac Unknown Verified 11/01/19 09:18 Quinidine-Quinine Analogues AdvReac Unknown Verified 11/01/19 09:18 (Cincho Consultations 11/01/19 18:39 Consult Orthopedic Surgery Routine Ordered Studies 11/01/19 08:54 CT SCAN OF THE ABDOMEN AND PELVIS WITHOUT IV CONTRAST CLINICAL HISTORY: Right lower quadrant abdominal pain. COMPARISON STUDY: Abdominal CT dated 09/23/2019. Pelvic CT dated 10/30/2019. TECHNIQUE: CT scan of the abdomen and pelvis is performed from the lung bases to the proximal femora. Images are reviewed in the axial, sagittal, and coronal planes. IV contrast was not administered for this examination as per the referring clinician. Note that the examination was performed in suboptimal fashion without oral and IV contrast. A dose lowering technique was utilized adhering to the principles of ALARA. CT DOSE: 414.67 mGycm FINDINGS: Lung bases: The heart is enlarged and without pericardial effusion. There is advanced chronic calcification of the visualized thoracic aorta. The coronary arteries are densely calcified. Changes of chronic interstitial lung disease are noted at the lung bases. There is no airspace consolidation typical for pneumonia or pleural effusion. Pleural thickening is noted at the right lung base. There is a small hiatal hernia. Liver: The unenhanced liver is normal in size, contour, and attenuation. There is no intrahepatic biliary ductal dilatation. Gallbladder: The gallbladder is mildly distended. The wall appears thickened and there is pericholecystic stranding. Spleen: Normal in size and attenuation. Pancreas: The unenhanced pancreas is moderately atrophic and grossly unremarkable. Adrenal glands: Unremarkable. Kidneys: The unenhanced kidneys demonstrate cortical atrophy and are without hydronephrosis. There are no renal calculi identified. There is no evidence of contour deforming renal mass lesion. Abdominal vasculature: There is advanced atherosclerotic calcification and mild ectasia of the abdominal aorta. Bowel: There is postoperative change from left colon resection with right lower quadrant colostomy. No bowel obstruction is seen. A small bowel anastomosis is noted in the left lower quadrant. A sigmoid stump is noted in the pelvis and contains scattered diverticula. The appendiceal tip is distended and fluid- filled, measuring up to 9 mm in diameter. There is no periappendiceal inflammation. Peritoneum: There is no intraperitoneal free air or abdominal ascites. Lymphadenopathy: None. Pelvic viscera: The bladder, uterus, and adnexa are normal as visualized. Skeletal structures: The skeletal structures are heterogeneously osteopenic. There is severe chronic compression deformity of T12 and L1. Milder chronic compression deformities are noted involving T10, L2, L3, and L4. Multilevel spondylotic changes observed. No lytic or blastic lesions are seen. IMPRESSION: 1. Suboptimal examination without oral and IV contrast. 2. The gallbladder wall appears thickened there is pericholecystic stranding. Correlate clinically for evidence of acute cholecystitis. Ultrasound could be considered for further assessment. 3. Cardiomegaly and changes of chronic interstitial lung disease are similar to previous. 4. Status post left colon resection with right lower quadrant colostomy. No bowel obstruction is seen. 5. The appendiceal tip is distended and fluid-filled measure up to 9 mm. There is no surrounding inflammation and no evidence of acute appendicitis. A mucocele could potentially have this appearance. Consider nonemergent surgical follow-up. 6. Additional findings as above. 11/01/19 11:12 ULTRASOUND RIGHT UPPER QUADRANT ABDOMEN CLINICAL HISTORY: Abnormal CT. Right-sided abdominal pain. COMPARISON STUDY: Abdominal CT dated 11/01/2019. TECHNIQUE: Real-time, grayscale, and color flow sonography of the right upper quadrant of the abdomen was performed. Images are reviewed in the transverse and longitudinal planes. FINDINGS: Liver: The liver is normal in size and echotexture. There is no intrahepatic biliary ductal dilatation. The main portal vein is patent. Gallbladder: The gallbladder is not well-visualized. Gallstones and biliary sludge identified. No definite gallbladder wall thickening is identified. A sonographic Stephens's sign was not reported. The common bile duct measures up to 0.4 cm in diameter. Pancreas: Not visualized due to overlying bowel gas. Right kidney: Survey images of the right kidney demonstrate normal size and echotexture. There is no hydronephrosis. Ascites: None. IMPRESSION: 1. The gallbladder and pancreas were not well visualized. 2. Cholelithiasis and biliary sludge. There is no definitive sonographic evidence of acute cholecystitis, but this is not well assessed. The CT findings remain concerning and a nuclear hepatobiliary scan is recommended to assess for cystic duct obstruction. 3. There is no intra or extrahepatic biliary ductal dilatation. 11/01/19 15:57 MRI OF THE LUMBAR SPINE WITHOUT IV CONTRAST CLINICAL HISTORY: Right-sided lumbar radiculopathy. COMPARISON STUDY: CT of the lumbar spine dated 10/30/2019. MRI of lumbar spine dated 12/24/2017. Abdominal CT dated 09/23/2019. TECHNIQUE: MRI of lumbar spine was performed utilizing various T1 and T2- weighted sequences in the axial and sagittal planes. IV contrast was not administered for this examination. The examination is mildly degraded by motion artifact. FINDINGS: Lumbar spine: Fatty marrow change is seen throughout. There are severe chronic compression deformities of T12 and L1. There are moderate chronic compression deformities of L2 and L4. Mild compression deformities are noted in T10 and T11. There is an acute to subacute on chronic compression deformity of L3 with moderate loss of height and mild marrow edema. No retropulsed fragments are identified. The transverse and spinous processes are intact. There is no evidence of spondylolysis. No destructive bony lesion is seen. Anterior and lateral marginal osteophytes are seen throughout. Intervertebral discs: Degenerative disc desiccation is noted throughout the lumbar spine. There is only minimal loss of height. Spinal cord: The visualized spinal cord is normal in morphology and signal intensity. The conus medullaris terminates at the level of L1. The nerve roots of the cauda equina are normal in morphology. T12-L1: The central canal and neural foramina appear patent. L1-L2: The central canal is clear. Mild facet arthropathy is noted. There is moderate to severe bilateral neural foraminal stenosis. L2-L3: The central canal is clear. Minimal disc bulge is noted. In conjunction with facet arthropathy, this causes moderate bilateral neural foraminal stenosis, right greater than left. L3-L4: There is hypertrophy of the ligamentum flavum. The minimum AP canal andrey meter measures 10 mm. Facet arthropathy is noted and contributes to mild bilateral neural foraminal stenosis. L4-L5: There is hypertrophy of the ligamentum flavum. The central canal is clear. Facet arthropathy contributes to mild bilateral neural foraminal stenosis. L5-S1: The central canal is clear. Facet arthropathy contributes to mild bilateral neural foraminal stenosis. Sacrum: The visualized sacrum is normal in morphology and signal intensity. Soft tissues: There is fatty atrophy of the paraspinous musculature. The visualized retroperitoneal structures are grossly unremarkable but incompletely assessed. IMPRESSION: 1. There is an acute to subacute on chronic compression deformity of L3 with moderate loss of height and mild endplate edema. This is unchanged from the 10/30/2019 CT scan. 2. Additional chronic compression deformities are similar to previous. 3. There is no significant acquired compromise of the central canal. 4. Mild multilevel spondylosis as above. 5. No destructive bony lesion is identified. Hospital Course (1) Lumbar radiculopathy: (2) Compression fracture of L3 vertebra: Kadie Segundo is an 89 year old female admitted to [facility] from November 01 to 2019 due to ongoing right back/hip/groin pain. This appeared to start ever since prolonged sitting in a wheelchair around 6 days ago. MRI showed minimal disc bulge and facet joint arthropathy causing moderate bilateral foraminal stenosis right > left L2-3 which I suspect is causing her radicular symptoms. She was treated with increased gabapentin, lidocaine patch and intravenous steroids and responded well. Suspect most of her improvement overnight due to decadron prescribed and she will be placed on a tapering dose of this as an outpatient. She was advised to also use lidocaine patches as required. She was also reviewed by orthopedics (Dr Sanchez) who pain may also be due to sacroiliitis and/or hip arthritis. Recommended calling for an appointment if her pain continues. She will follow up with her primary care provider regarding the subacute L3 compression fracture. Recommend testing for osteoporosis if this has not previously been performed. Vitamin D level in September was within normal limits on supplementation. Incidental findings on CT abdomen/pelvis: 1) Gallbladder wall thickening and pericholecystic stranding concerning for infection. Subsequent gall bladder ultrasound however showed stones and sludge but no definitive evidence of infection. She was having no RUQ pain therefore no further imaging/workup recommended at this time. 2) Appendix tip was fluid filled and distended. There was no surrounding inflammation however to suggest acute appendicitis (infection). A communication note was made to her general surgeon. She was instructed to call the office if she hasn't heard anything back after approximately 1 week. Her blood pressure was also elevated. Suspect steroids and pain may be contributing towards this. This was more acceptable on discharge but she was instructed to follow up with her primary care provider regarding this. No changes to your blood pressure medications have been made. (3) Abnormal CT of the abdomen: (4) Gallstones: (5) CKD (chronic kidney disease) stage 3, GFR 30-59 ml/min: (6) Anemia: (7) Hypertension: (8) History of colon cancer: (9) Osteoarthritis of hips, bilateral: (10) Colostomy in place: Total Time Total Time Spent Total Time Spent (In Minutes): 50 Total Time Includes: Examination of the Patient, Discharge Planning and Medication Reconciliation Discharge Plan Discharge Items Patient Disposition: Home - Self-Care Reason For Visit: L3 COMPRESSION FRACTURE WITH INTRACTABLE PAIN Discharge Diagnosis: L2 radiculopathy L3 subacute compression fracture Sacroiliitis - inflammation of sacrum-iliac joint Activity: Resume your previous activity Non-emergency contact: Primary Care Provider Call non-emergency contact if: you have any medication questions and your symptoms worsen Follow-up/Referrals: Seth Pendleton MD [Primary Care Provider] - 11/09/19 3:30 pm Tho Sanchez DO [Surgeon] - 11/09/19 11:30 am (Follow up with ROBYN Medina. Bring insurance cards, medication listing and please arrive 20 mins prior to appt.) Diet: Regular Addtl Attending Provider Instructions: You were admitted to [facility] from November 01 to 2019 due to ongoing right back/hip/groin pain. This appeared to start ever since prolonged sitting in a wheelchair around 6 days ago. MRI showed minimal disc bulge and facet joint arthropathy causing moderate bilateral foraminal stenosis right > left L2-3 which I suspect is causing your radicular symptoms. You were treated with increased gabapentin, lidocaine patch and intravenous steroids and responded well. Oral steroids will be continued on discharge (see prescription below) to help with inflammation but the main management remains continued mobility. Please use over the counter lidocaine patches if these help. You were also reviewed by orthopedics (Dr Sanchez) who felt some of your pain may also be due to sacroiliitis (inflammation of the sacrum-iliac joint) and/or hip arthritis. If your pain continues recommend calling the number above for an outpatient follow up appointment. Please follow up with your primary care provider regarding the subacute L3 compression fracture. Recommend testing for osteoporosis if this has not previously been performed. Incidental findings on CT abdomen/pelvis: 1) Gallbladder wall thickening and pericholecystic stranding concerning for infection. Subsequent gall bladder ultrasound however showed stones and sludge but no definitive evidence of infection. You do not see to be having any symptoms related to this and liver enzymes were normal on lab work therefore no treatment for this was recommended. 2) Appendix tip was fluid filled and distended. There was no surrounding inflammation however to suggest acute appendicitis (infection). A communication note was made to your general surgeon. Please call the office if you have not heard anything back in approximately 1 week. Of note your blood pressure has also been elevated. Suspect steroids and pain may be contributing towards this. This was more acceptable on discharge but please also follow up with your primary care provider. No changes to your blood pressure medications have been made. Pending Studies at Discharge: No Stand-Alone Forms: [facility], Smoking Cessation Medications and DC Order Prescriptions: New acetaminophen 500 mg Tablet 1,000 mg PO TID 7 Days Qty: 42 RF: 0 dexamethasone [Decadron] 4 mg tablet See Rx Instructions .ROUTE .COMPLEX Qty: 4 RF: 0 Continued (DME) Skin Prep Wipes misc See Dose Instructions .ROUTE .MEDSUPPLY Qty: 1 RF: 0 diclofenac sodium [Voltaren] 1 % gel 4 gm TOP QID Qty: 100 RF: 3 tramadol 50 mg tablet 25 mg PO QID RF: 0 omeprazole 20 mg tablet,delayed release (DR/EC) 20 mg PO DAILY Qty: 30 RF: 5 telmisartan 80 mg tablet 80 mg PO QAM RF: 0 Elmiron 100 mg capsule 100 mg PO DAILY RF: 0 amlodipine 5 mg tablet 5 mg PO DAILY RF: 0 Alphagan P 0.1 % drops 1 drp OPB BID RF: 0 baclofen 5 mg tablet See Rx Instructions .ROUTE .COMPLEX PRN (Reason: pain) Qty: 20 RF: 0 methenamine hippurate 1 gram Tablet 1 g PO HS RF: 0 cholecalciferol (vitamin D3) [Vitamin D3] 1,000 unit Tablet 4,000 unit PO QAM RF: 0 loratadine [Claritin] 10 mg tablet 10 mg PO QAM RF: 0 Changed gabapentin 300 mg capsule 300 mg PO TID Qty: 0 RF: 0 Discharge Orders: Discharge Order (Routine); Ordered 11/02/19 Ordered By: Pierre Degroot Admission Data Admit Date/Time: 11/01/19 13:50 Attending Provider: Pierre Degroot Admit Provider: Pierre Heard Primary Care Provider: Seth Pendleton Other Providers: Tho Sanchez Other Interventions: Discharge Summary Assessment (RN) Last Done: 11/02/19 15:33 DC Date/Time DO NOT enter until pt leaves facility: 11/02/19 17:12 Coding Level of Care Code 61370 OBS Care - Discharge Diagnoses Lumbar radiculopathy M54.16 Compression fracture of L3 vertebra S32.030D Encounter type: subsequent encounter Fracture healing: with routine healing Abnormal CT of the abdomen R93.5 Gallstones K80.20 CKD (chronic kidney disease) stage 3, GFR 30-59 ml/min N18.3 Anemia D64.9 Anemia type: unspecified type Hypertension I10 Hypertension type: essential hypertension History of colon cancer Z85.038 Osteoarthritis of hips, bilateral M16.0 Osteoarthritis type: primary Colostomy in place Z93.3
--- NOTE | 2019-11-03 10:18 | Communication Note ---
Date of Service: November 02, 2019 Discharge summary sent separately. Please could you review the CT A/P from 11/01/2019 for this patient under your care. She was admitted for lumbar radi cular pain which resolved with Decadron but had incidental shredder picker of a distended and fluid-filled appendix. Given her history of colon cancer I was wondering if she requires any closer follow up of this. If you could have your office call the patient with your advice that would be gratefully appreciated. Thank you for your continued care of this patient. Kind regards, Dr Pierre Degroot
== END 2019-11-02 17:12 | disposition home or self-care (01) ==
LOC: 2N 08:35 → ED 08:35 → SUATTDRO 13:50 → 2N 15:35

== ENCOUNTER 2020-05-01 10:47 | Inpatient (IN) ==
[2020-05-01] MEDS ORDERED: STAT IV Infusion **Titration per Protocol STA (11:18)
[2020-05-01] MEDS ORDERED: SODIUM CHLORIDE 0.9% 500 ML IV SCH (11:30)
--- NOTE | 2020-05-01 11:30 | Emergency Department Note ---
Impression & Plan Atrial fibrillation with RVR, SOB (shortness of breath), Acute thoracic back pain, Acute UTI ED Provider Note NAME: PATY REYNOSO AGE: 89 SEX: F : 1930 ARRIVES VIA: Walk-In INFORMANT: [Patient][family] ED PROVIDER(S): [Chadd Oliva MD] CHIEF COMPLAINT: Shortness of breath HISTORY OF PRESENT ILLNESS: The patient is an 89-year-old female who presents to the ER with 3 days of symptoms. Patient states that she has noticed some mid back pain that worsens w ith movement or deep breathing and is a 10/10. She has noticed exertional shortness of breath. No real pain across the chest, the pain is mostly in the back. She has not had cough, congestion, stuffy nose or fever. She has not fallen or suffered trauma. There are no palpitations. The patient has not really felt like this in the past. The patient has a history of AV block. She has multiple medication allergies listed. She states that she has never heard of or been told that she had atrial fibrillation/A. fib. REVIEW OF SYSTEMS: See HPI for pertinent positives and negatives. A total of ten systems were reviewed and were otherwise negative. PMHx/PSHx: See Below SOCIAL HISTORY: See Below. PHYSICAL EXAM: GENERAL: Patient is in no acute distress. HEENT: No acute trauma, normocephalic atraumatic, mucous membranes moist, no nasal congestion, no scleral icterus. NECK: No stridor, no adenopathy, no meningismus, trachea is midline. LUNGS: Clear to auscultation bilaterally, no wheeze, no rhonchi, breath sounds equal. HEART: Tachycardic and irregular, no murmurs. ABDOMEN: Soft, nontender, bowel sounds positive, no hernias, no peritonitis. EXTREMITIES: No cyanosis or edema, full range of motion of all the joints without pain or difficulty, no signs for acute trauma. NEUROLOGIC: Oriented x 3, no acute motor or sensory deficits, no focal weakness. SKIN: No rash, no jaundice, no diaphoresis. Back: Tender to the mid back in the area of the lower thoracic spine, there is no step-off. Her pain worsens with movement. DIFFERENTIAL DIAGNOSIS: Cardiac ischemia, aortic dissection, pulmonary embolism, pneumothorax, thoracic or lumbar compression fracture, pneumonia, pericarditis, myocarditis, thyroid disorder, electrolyte imbalance, esophageal rupture, GERD, cholecystitis, pancreatitis, musculoskeletal, as well as other pathologies. EMERGENCY DEPARTMENT COURSE/PROCEDURES: ECG: Indication was shortness of breath. The ECG shows rapid atrial fibrillation with a rate of 138. There is diffuse nonspecific ST change especially in the lateral leads. The QTc is 439. No ST elevation, no PVCs. Continuous Cardiac Monitoring: An order was placed for continuous cardiac monitoring. The monitor shows a rate of 104 with atrial fibrillation. Critical Care Note: I have personally spent greater than 46 minutes of critical care time in the direct management of this patient. This includes bedside care, interpretation of diagnostic studies, and testing, discussion with consultants, patient, and family members, and other required patient management activities. This 46 minutes is in excess of all separately billable procedures. MEDICAL DECISION MAKING: There is a mild leukocytosis this could be consistent with infection or just her presentation/stress. There is no anemia. There is a slightly elevated platelet count. No coagulopathy. D-dimer was slightly elevated. No evidence for significant electrolyte abnormality or kidney failure. No concerning liver enzyme elevation. The patient appeared to be in a euthyroid state. No evidence for pancreatitis. ECG showed a rapid A. fib, no ST elevation. Cardiac enzyme testing x1 is not consistent with acute cardiac injury. Chest film did not show any evidence for CHF or pneumonia. Urinalysis was suggestive of infection. Chest CT did not show any PE, no pneumonia. CT of the thoracic and lumbar spine were performed, there were some older compression fractures, no acute fracture noted. The patient received a 500 cc saline bolus. She was placed on a diltiazem drip and this was titrated to control her heart rate. She received IV ceftriaxone for her urinary infection. The patient seems to be resting comfortably. Her heart rate is now better controlled. I did speak with her and her family about my findings. I do think hospitalization is warranted. Patient is going require a cardiology consult for management of her A. fib. The UTI may explain some of the increasing back pain. I did talk with case management. The on-call hospitalist was consulted. Past Med/Surg History Medical History Cardiac murmur No significant valve disease per 2017 echo Chronic diastolic CHF (congestive heart failure) Colon cancer 2016--sx, chemo 11/2018 -recurrence w/ mets to peritoneum & lymph nodes Folate deficiency Gram negative sepsis History of colon cancer History of vertebral fracture PER 06/2018 XRAY: "There is a new superior endplate L4 compression fracture. There is an old L2 compression fracture. There are severe T12 and L1 compression fractures. The bones are osteopenic. There are multilevel degenerative changes." Intra-abdominal fluid collection MRSA nasal colonization Vertigo Surgical History H/O exploratory laparotomy 2016. status post open transverse colectomy with primary anastomosis, omentectomy, excision or biopsy of left liver lesion performed by Dr. Lomax 12/13/2016. Unfortunately postoperatively she developed intra- abdominal abscesses requiring re-exploration of her abdomen, washout of the abscesses, takedown of the primary anastomosis and creation of a colostomy and mucous fistula. History of bilateral cataract extraction History of bowel resection 2015 for colon cancer--colostomy History of cervical polypectomy History of colonoscopy History of exploratory laparotomy 11/27/18 [facility] - left hemicolectomy and small bowel resection with Dr. Lomax. Grade 1 view with MAC 3 and 7.0 ETT, EZ mask. History of temporal artery biopsy History of tooth extraction all teeth removed Hx of cervical polypectomy Family History Daughter Family history of breast cancer Father , age 93, "old age" No problems noted. 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 Other Information That Helps Us Care for You: No other: 7 children Feels Safe at Home: Yes Seatbelt Use: always Sunscreen Use: No Allergies Allergies Allergy/AdvReac Type Severity Reaction Status Date / Time diltiazem Allergy Unknown TIGHTENING Verified 05/01/20 11:37 OF THROAT erythromycin base Allergy Unknown PT UNSURE Verified 05/01/20 11:37 nifedipine Allergy Unknown EXACERBATION Verified 05/01/20 11:37 INTERSTITIAL CYCSTITIS nitrofurantoin Allergy Unknown RASH Verified 05/01/20 11:37 quinine Allergy Unknown PT UNSURE Verified 05/01/20 11:37 Sulfa (Sulfonamide Allergy Unknown RASH Verified 05/01/20 11:37 Antibiotics) azithromycin [From Zithromax] AdvReac Intermediate Rash Verified 05/01/20 11:37 [email or web address] AdvReac Intermediate n/v Verified 05/01/20 11:37 Beta-Blockers AdvReac Mild "Secondary Verified 05/01/20 11:37 (Beta-Adrenergic Bloc AVB" Cipro AdvReac Unknown GI SYMPTOMS Verified 04/22/18 09:21 ciprofloxacin AdvReac Unknown GI SYMPTOMS Verified 05/01/20 11:37 hydralazine AdvReac Unknown dysuria Verified 05/01/20 11:37 hydrochlorothiazide AdvReac Unknown Rash Verified 05/01/20 11:37 hydrocodone AdvReac Unknown GI UPSET Verified 05/01/20 11:37 lisinopril AdvReac Unknown "INTOLERANCE" Verified 05/01/20 11:[address] COLON losartan AdvReac Unknown JITTERY,SHA Verified 05/01/20 11:37 DOHERTY meperidine AdvReac Unknown GI UPSET Verified 05/01/20 11:37 methenamine AdvReac Unknown HX STOMACH Verified 05/01/20 11:37 PAIN- SEE NOTES metronidazole AdvReac Unknown STOMACH Verified 05/01/20 11:37 PAIN Phenothiazines AdvReac Unknown SHAKEY Verified 05/01/20 11:37 prochlorperazine AdvReac Unknown "BODY Verified 05/01/20 11:37 SHAKES" Quinolones AdvReac Unknown CIPRO- Verified 05/01/20 11:37 NAUSEA, NERVOUS, CHILLS simvastatin AdvReac Unknown STOMACH Verified 05/01/20 11:37 PAIN spironolactone AdvReac Unknown RECTAL Verified 05/01/20 11:37 PRESSURE, PAIN terazosin AdvReac Unknown LIGHTHEADEDNESS Verified 05/01/20 11:37 AND NAUSEA valdecoxib AdvReac Unknown GI SYMPTOMS Verified 05/01/20 11:37 clindamycin AdvReac Unknown Verified 05/01/20 11:37 Quinidine-Quinine Analogues AdvReac Unknown Verified 05/01/20 11:37 ([facility] Home Meds Home Medications Medication Instructions Recorded Confirmed cholecalciferol (vitamin D3) 4,000 unit PO QAM 07/28/18 05/01/20 [Vitamin D3] Alphagan P 1 drp OPB BID 10/30/19 05/01/20 loratadine 10 mg tablet 10 mg PO QAM PRN 11/09/19 05/01/20 amlodipine 10 mg PO QAM 05/01/20 05/01/20 aspirin [Adult Aspirin Regimen] 81 mg PO QAM 05/01/20 05/01/20 atorvastatin 10 mg PO QPM 05/01/20 05/01/20 omeprazole 20 mg PO QAM 05/01/20 05/01/20 tramadol 50 mg PO TID PRN 05/01/20 05/01/20 Previous Rx's Medication Instructions Recorded diclofenac sodium 1 % topical gel 4 gm TOP QID #100 gm 10/29/19 methenamine hippurate 1 gram tablet 1 g PO HS #90 tab 11/09/19 gabapentin 300 mg capsule 300 mg PO TID #270 cap 12/10/19 pentosan polysulfate sodium 100 mg 100 mg PO BID 90 Days #180 cap 12/28/19 capsule azelastine 137 mcg (0.1 %) nasal 1 sprays INTNAS BID #30 ml 12/29/19 spray aerosol clobetasol 0.05 % topical ointment 1 appln TOP 2XWK #30 gm 04/13/20 Results & Data (ED) Vital Signs Vital Signs - 24 hr 05/01/20 10:53 05/01/20 11:05 05/01/20 11:07 Temperature 37.1 C Temperature Source Oral Pulse Rate 49 L 115 H 123 H Pulse Rate from SpO2 Sensor 115 H 121 H Respiratory Rate 20 12 18 Blood Pressure 107/55 L 181/81 H Blood Pressure Mean 72 91 Pulse Oximetry 100 95 Oxygen Delivery Method Room Air Sepsis Recent Fever Within 48 Hours No Sepsis New/Unexplained Change in Mental Status No Sepsis Action Taken by Nursing No Action Required 05/01/20 11:30 05/01/20 12:00 05/01/20 12:01 Temperature Temperature Source Pulse Rate 125 H 125 H 118 H Pulse Rate from SpO2 Sensor 111 H 128 H 113 H Respiratory Rate 20 Blood Pressure 142/90 H 141/92 H Blood Pressure Mean 101 101 Pulse Oximetry 98 94 Oxygen Delivery Method Sepsis Recent Fever Within 48 Hours Sepsis New/Unexplained Change in Mental Status Sepsis Action Taken by Nursing 05/01/20 12:06 05/01/20 12:15 05/01/20 12:37 Temperature Temperature Source Pulse Rate 102 H 119 H 103 H Pulse Rate from SpO2 Sensor 118 H 106 H 138 H Respiratory Rate 22 Blood Pressure 138/79 160/81 H Blood Pressure Mean 88 108 Pulse Oximetry 96 97 95 Oxygen Delivery Method Room Air Sepsis Recent Fever Within 48 Hours Sepsis New/Unexplained Change in Mental Status Sepsis Action Taken by Nursing 05/01/20 12:42 05/01/20 12:43 05/01/20 12:45 Temperature Temperature Source Pulse Rate 108 H 107 H 131 H Pulse Rate from SpO2 Sensor 126 H 112 H Respiratory Rate 25 H 24 27 H Blood Pressure 114/76 Blood Pressure Mean 88 Pulse Oximetry 97 96 Oxygen Delivery Method Sepsis Recent Fever Within 48 Hours Sepsis New/Unexplained Change in Mental Status Sepsis Action Taken by Nursing 05/01/20 12:46 05/01/20 13:00 05/01/20 13:01 Temperature Temperature Source Pulse Rate 117 H 114 H 113 H Pulse Rate from SpO2 Sensor 104 H 117 H 115 H Respiratory Rate 14 16 26 H Blood Pressure 131/80 146/74 H Blood Pressure Mean 118 99 Pulse Oximetry 92 96 95 Oxygen Delivery Method Sepsis Recent Fever Within 48 Hours Sepsis New/Unexplained Change in Mental Status Sepsis Action Taken by Nursing 05/01/20 13:15 05/01/20 13:16 05/01/20 13:27 Temperature Temperature Source Pulse Rate 116 H 112 H 120 H Pulse Rate from SpO2 Sensor 120 H 113 H 120 H Respiratory Rate 20 27 H 20 Blood Pressure 149/87 H 160/75 H Blood Pressure Mean 96 94 Pulse Oximetry 96 Oxygen Delivery Method Sepsis Recent Fever Within 48 Hours Sepsis New/Unexplained Change in Mental Status Sepsis Action Taken by Nursing 05/01/20 13:31 Temperature Temperature Source Pulse Rate 142 H Pulse Rate from SpO2 Sensor Respiratory Rate 25 H Blood Pressure Blood Pressure Mean Pulse Oximetry Oxygen Delivery Method Sepsis Recent Fever Within 48 Hours Sepsis New/Unexplained Change in Mental Status Sepsis Action Taken by Jail Medications Current Medication List: was personally reviewed by me Laboratory Data Attestation: I reviewed the patient's lab results. Result diagrams: 05/01/20 11:15 05/01/20 11:15 Lab Results 05/01/20 05/01/20 05/01/20 Range/Units 11:15 11:15 11:15 WBC 11.28 H (4.8-10.8) K/uL RBC 4.21 (4.2-5.4) M/uL Hgb 12.3 (12.0-16.0) g/dL Hct 38.7 (37-47) % MCV 91.9 (80-100) fL MCH 29.2 (25-34) pg MCHC 31.8 L (32-36) g/dL RDW Std Deviation 50.3 H (36.4-46.3) fL RDW Coeff of Wayne 15.0 H (11.5-14.5) % Plt Count 440 H (130-400) K/uL MPV 9.3 (7.4-10.4) fL Immature Gran % (Auto) 0.2 % Neut % (Auto) 69.7 % Lymph % (Auto) 19.9 % Kinney % (Auto) 9.6 % Eos % (Auto) 0.4 % Baso % (Auto) 0.2 % Neut # (Auto) 7.86 H (1.4-6.5) K/uL Lymph # (Auto) 2.25 (1.2-3.4) K/uL Kinney # (Auto) 1.08 H (0.11-0.59) K/uL Eos # (Auto) 0.05 (0-0.5) K/uL Baso # (Auto) 0.02 (0-0.2) K/uL Immature Gran # (Auto) 0.02 (0.00-0.02) K/uL PT 10.5 (9.0-12.0) Seconds INR 1.0 (0.9-1.1) APTT 23.1 (21.0-31.0) Seconds PTT Ratio 0.8 D-Dimer 810 H* (0-500) ug/L FEU Sodium 139 (136-145) mmol/L Potassium 4.1 (3.5-5.1) mmol/L Chloride 106 (98-107) mmol/L Carbon Dioxide 29 (21-32) mmol/L Anion Gap 4.0 (3-11) BUN 20 H (7-18) mg/dl Creatinine 1.24 H (0.6-1.2) mg/dl Est Cr Clr Drug Dosing 26.9 ml/min Est GFR ( Amer) 44.9 Est GFR (Non-Af Amer) 38.8 BUN/Creatinine Ratio 15.9 (10-20) Glucose 82 (70-99) mg/dl Calcium 8.3 L (8.5-10.1) mg/dl Magnesium 2.1 (1.8-2.4) mg/dl Total Bilirubin 0.3 (0.2-1) mg/dl AST 11 L (15-37) U/L ALT 17 (12-78) U/L Alkaline Phosphatase 63 (45-117) U/L Troponin I < 0.015 (0-0.045) ng/ml Total Protein 8.1 (6.4-8.2) gm/dl Albumin 3.2 L (3.4-5.0) gm/dl Globulin 4.9 H (2.5-4.0) gm/dl Albumin/Globulin Ratio 0.7 L (0.9-2) Lipase 75 (73-393) U/L TSH 1.340 (0.300-4.500) uIu/ml Urine Color Urine Appearance (Clear) Urine pH (4.5-7.5) Ur Specific Parker (1.000-1.030) Urine Protein (Negative) Urine Glucose (UA) (Negative) Urine Ketones (Negative) Urine Blood (Negative) Urine Nitrite (Negative) Urine Bilirubin (Negative) Urine Urobilinogen (Negative) Ur Leukocyte Esterase (Negative) Urine RBC (0-4) /hpf Urine WBC (0-5) /hpf Ur Epithelial Cells (0-5) /lpf Urine Bacteria (Negative) 05/01/20 Range/Units 11:44 WBC (4.8-10.8) K/uL RBC (4.2-5.4) M/uL Hgb (12.0-16.0) g/dL Hct (37-47) % MCV (80-100) fL MCH (25-34) pg MCHC (32-36) g/dL RDW Std Deviation (36.4-46.3) fL RDW Coeff of Wayne (11.5-14.5) % Plt Count (130-400) K/uL MPV (7.4-10.4) fL Immature Gran % (Auto) % Neut % (Auto) % Lymph % (Auto) % Kinney % (Auto) % Eos % (Auto) % Baso % (Auto) % Neut # (Auto) (1.4-6.5) K/uL Lymph # (Auto) (1.2-3.4) K/uL Kinney # (Auto) (0.11-0.59) K/uL Eos # (Auto) (0-0.5) K/uL Baso # (Auto) (0-0.2) K/uL Immature Gran # (Auto) (0.00-0.02) K/uL PT (9.0-12.0) Seconds INR (0.9-1.1) APTT (21.0-31.0) Seconds PTT Ratio D-Dimer (0-500) ug/L FEU Sodium (136-145) mmol/L Potassium (3.5-5.1) mmol/L Chloride (98-107) mmol/L Carbon Dioxide (21-32) mmol/L Anion Gap (3-11) BUN (7-18) mg/dl Creatinine (0.6-1.2) mg/dl Est Cr Clr Drug Dosing ml/min Est GFR ( Amer) Est GFR (Non-Af Amer) BUN/Creatinine Ratio (10-20) Glucose (70-99) mg/dl Calcium (8.5-10.1) mg/dl Magnesium (1.8-2.4) mg/dl Total Bilirubin (0.2-1) mg/dl AST (15-37) U/L ALT (12-78) U/L Alkaline Phosphatase (45-117) U/L Troponin I (0-0.045) ng/ml Total Protein (6.4-8.2) gm/dl Albumin (3.4-5.0) gm/dl Globulin (2.5-4.0) gm/dl Albumin/Globulin Ratio (0.9-2) Lipase (73-393) U/L TSH (0.300-4.500) uIu/ml Urine Color Yellow Urine Appearance Slightly Cloudy (Clear) Urine pH 5.0 (4.5-7.5) Ur Specific Parker 1.025 (1.000-1.030) Urine Protein Trace H (Negative) Urine Glucose (UA) Negative (Negative) Urine Ketones Negative (Negative) Urine Blood Trace H (Negative) Urine Nitrite Negative (Negative) Urine Bilirubin Negative (Negative) Urine Urobilinogen Negative (Negative) Ur Leukocyte Esterase 2+ H (Negative) Urine RBC 10-30 H (0-4) /hpf Urine WBC >30 H (0-5) /hpf Ur Epithelial Cells >30 H (0-5) /lpf Urine Bacteria 2+ H (Negative) Administered Medications Diclofenac Sodium (Diclofenac Sod 1% Gel 100 Gm Tube) 4 gm EXT QID [facility] Stop: 05/31/20 16:59 Last Admin: 05/01/20 16:24 Dose: Not Given Documented by: [id number] Gabapentin (Gabapentin 300 Mg Cap) 300 mg PO TID [facility] Stop: 05/31/20 15:19 Last Admin: 05/01/20 16:24 Dose: 300 mg Documented by: [id number] Diltiazem HCl 125 mg/ Dextrose 125 mls @ 5 mls/hr IV .Q24H [facility]; Protocol Stop: 05/31/20 11:29 Last Titration: 05/01/20 13:18 Dose: 10 mg/hr, 10 mls/hr Documented by: [id number] Cosigned by: [id number] Admin: 05/01/20 11:38 Dose: 5 mg/hr, 5 mls/hr Documented by: [id number] Cosigned by: [id number] Miscellaneous (Azelastine: Order Awaiting Action) 1 ea N/A QS [facility] Stop: 05/31/20 15:59 Last Admin: 05/01/20 15:50 Dose: Not Given Documented by: [id number] Discontinued Medications Sodium Chloride (Nss) 500 mls @ 999 mls/hr IV .Q31M [facility] Stop: 05/01/20 12:00 Last Infusion: 05/01/20 12:11 Dose: 0 mls/hr Documented by: [id number] Admin: 05/01/20 11:38 Dose: 999 mls/hr Documented by: [id number] Ceftriaxone Sodium (Rocephin) 1,000 mg in 50 mls @ 100 mls/hr IV NOW STA Stop: 05/01/20 13:55 Last Infusion: 05/01/20 14:50 Dose: 0 mls/hr Documented by: [id number] Admin: 05/01/20 14:19 Dose: 100 mls/hr Documented by: [id number] Ioversol (Optiray 320 125ml) 120 ml IV ONCE ONE Stop: 05/01/20 12:22 Last Admin: 05/01/20 12:21 Dose: 120 ml Documented by: [id number] Miscellaneous (Stat Iv Infusion Titration Per Protocol) 1 ea N/A NOW STA Stop: 05/01/20 11:19 Last Admin: 05/01/20 11:41 Dose: 1 ea Documented by: [id number] Imaging Data Radiologist's Impression: XR chest 1V portable HISTORY: 89 years-old Female Chest Pain acute atypical chest pain COMPARISON: Chest CT 09/23/2019, chest radiograph 02/13/2019 TECHNIQUE: Portable AP view of the chest FINDINGS: Cardiac silhouette is enlarged, unchanged. Calcified plaque of the thoracic aortic arch. Chronic right hemidiaphragm elevation. Chronic interstitial coarsening. Right subclavian Fgmdnl-e-Kiee catheter. No pneumothorax or large pleural effusion or overt pulmonary edema. Degenerative changes of the shoulders and spine. IMPRESSION: Chronic findings as above without acute process. CT thoracic spine w con, CT lumbar spine w con HISTORY: 89 years-old Female pain, hist of fx acute mid and low back pain with history of prior compression deformity COMPARISON: CTA chest of same day, MRI lumbar spine 11/01/2019, CT abdomen pelvis 11/01/2019 TECHNIQUE: Multiple axial CT images of the thoracic and lumbar spine were obtained without the use of IV contrast. A dose lowering technique was used consistent with the principals of ALARA. FINDINGS: THORACIC: Right subclavian Oinxcy-y-Pbmj catheter. Cardiomegaly. Chronic interstitial lung disease with trace right pleural effusion. No acute rib fracture identified. Un changed mild superior endplate compression deformities of the T8, T10, and T11 vertebral bodies. Additionally, there is unchanged appearance of the severe T12 compression deformity. No acute fracture or subluxation. Anterior plate bridging osteophytosis with mild to moderate multilevel disc space narrowing and moderate facet arthrosis. LUMBAR: Remote severe T12 and L1 compression deformities additional remote compression deformities are present at L2-L5. No definite additional acute fracture or subluxation identified. Severe multilevel facet arthrosis. Convex right curvature of the thoracolumbar junction. No acute sacral insufficiency fracture. Evaluation of the central canal and neuroforamina is better assessed by MRI. No acute process of the imaged intra-abdominal structures. Extensive calcified plaque the abdominal aorta. High-grade stenosis of the right common iliac artery. IMPRESSION: 1. Multiple remote compression deformities of the thoracic and lumbar spine as above. No definite acute fracture or subluxation identified. 2. Demineralized appearance of the bones with degenerative changes as above. CT angio chest PE protocol CT DOSE: 1550.75 mGy.cm HISTORY: 89 years-old Female with Chest Pain, eval for PE. History of colon cancer. Acute chest and back pain TECHNIQUE: Multiple CTA images of the chest were obtained after the intravenous administration of 120 ml Optiray 320. Coronal and sagittal MIPS were obtained from the axial data set and were submitted for review. All measurements were obtained according to NASCET criteria. A dose lowering technique was utilized adhering to the principles of ALARA. COMPARISON: CT thoracic and lumbar spine studies of same day, chest CT 09/23/2019, CT lumbar spine 10/30/2019 FINDINGS: CTA: Mild cardiomegaly. No pericardial effusion. Coronary artery calcifications. No thoracic aortic aneurysm. Extensive mixed plaque the thoracic aorta. Patency of the imaged great vessels. No dissection. Pulmonary artery is opacified to the level of the proximal subsegmental branches and demonstrates no filling defects to suggest thromboembolic disease. CT CHEST: Unremarkable thyroid. No adenopathy. Trace right pleural effusion. Unchanged 4 mm right upper lobe solid pulmonary nodule on image 216 series 4. Subpleural reticulation within a mid and lower lung zone prominent distribution redemons trated. Honeycombing within the lung bases also noted with traction bronchiectasis. Central airways are patent. Unremarkable soft tissues. Degenerative changes of the spine and shoulders. No acute fracture identified. Compression deformities at T12 and L1 are unchanged. IMPRESSION: 1. No evidence of pulmonary thromboembolic disease. 2. 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 3. Cardiomegaly. 4. Trace right pleural effusion. Blood Pressure Blood Pressure Findings: Elevated blood pressure Blood Pressure Disposition: further management by hospitalist Discharge Plan Visit Data Chief Complaint: Shortness of Breath/Dyspnea Stated Complaint: BACK PAIN, SOB, THINKING PNEUMONIA ED Provider: Chadd Oliva Discharge Problem: Atrial fibrillation with RVR, SOB (shortness of breath), Acute thoracic back pain, Acute UTI Patient Disposition: Admitted As Inpatient Condition: Good Discharge Instructions Interventions: ED Discharge Assessment Last Done: 05/01/20 14:34 Discharge Problem: Acute thoracic back pain Qualifiers: Back pain laterality: midline Qualified Code(s): M54.6 - Pain in thoracic spine
[2020-05-01 11:37] LABS: Basophils # (auto) 0.02 K/uL (0-0.2); Basophils % (auto) 0.2 %; Eosinophils # (auto) 0.05 K/uL (0-0.5); Eosinophils % (auto) 0.4 %; Hematocrit (blood only) 38.7 % (37-47); Hemoglobin 12.3 g/dL (12.0-16.0); Immature Granulocytes # (auto) 0.02 K/uL (0.00-0.02); Immature Granulocytes % (auto) 0.2 %; Lymphocytes # (auto) 2.25 K/uL (1.2-3.4); Lymphocytes % (auto) 19.9 %; Mean Corpuscular Hemoglobin 29.2 pg (25-34); Mean Corpuscular Hgb Conc 31.8 g/dL (32-36); Mean Corpuscular Volume 91.9 fL (80-100); Mean Platelet Volume 9.3 fL (7.4-10.4); Monocytes # (auto) 1.08 K/uL (0.11-0.59); Monocytes % (auto) 9.6 %; Neutrophils # (auto) 7.86 K/uL (1.4-6.5); Neutrophils % (auto) 69.7 %; Platelet Count 440 K/uL (130-400); RDW Standard Deviation 50.3 fL (36.4-46.3); Red Blood Count 4.21 M/uL (4.2-5.4); White Blood Count 11.28 K/uL (4.8-10.8)
[2020-05-01] MEDS: dilTIAZem HCL 125 MG in DEXTROSE 5% 100 ML IV SCH ×2 (11:38→22:55)
[2020-05-01 11:56] LABS: Alanine Aminotransferase 17 U/L (12-78); Albumin Globulin Ratio 0.7 (0.9-2); Albumin Level 3.2 gm/dl (3.4-5.0); Alkaline Phosphatase 63 U/L (45-117); Aspartate Aminotransferase 11 U/L (15-37); BUN Creatinine Ratio 15.9 (10-20); Bilirubin,Total 0.3 mg/dl (0.2-1); Blood Urea Nitrogen 20 mg/dl (7-18); Calcium 8.3 mg/dl (8.5-10.1); Carbon Dioxide 29 mmol/L (21-32); Chloride 106 mmol/L (98-107); Creatinine Clr Calc Pharmacy 26.9 ml/min; Est GFR (African American) 44.9; Est GFR (Non-African American) 38.8; Globulin 4.9 gm/dl (2.5-4.0); Glucose 82 mg/dl (70-99); Lipase 75 U/L (73-393); Magnesium 2.1 mg/dl (1.8-2.4); Potassium 4.1 mmol/L (3.5-5.1); Sodium 139 mmol/L (136-145); Total Protein 8.1 gm/dl (6.4-8.2)
[2020-05-01 12:03] LABS: Appearance Urine Slightly Cloudy (Clear); Bilirubin Urine Negative (Negative); Blood Urine Trace (Negative); Color Urine Yellow; Glucose Urine UA Negative (Negative); Ketones Urine Negative (Negative); Leukocyte Esterase Urine 2+ (Negative); Nitrite Urine Negative (Negative); Protein Urine Trace (Negative); Specific Gravity Urine 1.025 (1.000-1.030); Urobilinogen Urine Negative (Negative)
[2020-05-01 12:04] LABS: Troponin I < 0.015 ng/ml (0-0.045)
[2020-05-01 12:10] LABS: Partial Thromboplastin Ratio 0.8; Partial Thromboplastin Time 23.1 Seconds (21.0-31.0); Prothrombin Time 10.5 Seconds (9.0-12.0)
[2020-05-01 12:12] LABS: D Dimer 810 ug/L FEU (0-500)
--- NOTE | 2020-05-01 12:12 | XRay Report ---
XR chest 1V portable HISTORY: 89 years-old Female Chest Pain acute atypical chest pain COMPARISON: Chest CT 09/23/2019, chest radiograph 02/13/2019 TECHNIQUE: Portable AP view of the chest FINDINGS: Cardiac silhouette is enlarged, unchanged. Calcified plaque of the thoracic aortic arch. Chronic righ t hemidiaphragm elevation. Chronic interstitial coarsening. Right subclavian Kzmsmo-g-Viez catheter. No pneumothorax or large pleural effusion or overt pulmonary edema. Degenerative changes of the shoul ders and spine. IMPRESSION: Chronic findings as above without acute process. ACT 112: Negative or not required by law. The above report was generated using voice recognition software. It may contain grammatical, syntax o r spelling errors. Electronically signed by: Ruel Lovett M.D. 05/01/2020 12:11 PM
[2020-05-01 12:17] LABS: Epithelial Cell Urine >30 /lpf (0-5); WBC Urine >30 /hpf (0-5)
[2020-05-01 12:18] LABS: Bacteria Urine 2+ (Negative)
[2020-05-01] MEDS ORDERED: OPTIRAY 320 125ml IV ONE (12:21)
--- NOTE | 2020-05-01 12:54 | CT Scan Report ---
CT angio chest PE protocol CT DOSE: 1550.75 mGy.cm HISTORY: 89 years-old Female with Chest Pain, eval for PE. History of colon cancer. Acute chest and back pain TECHNIQUE: Multiple CTA images of the chest were obtained after the intravenous administration of 120 ml Optiray 320. Coronal and sagittal MIPS were obtained from the axial data set and were submitted for review. All measurements were obtained according to NASCET criteria. A dose lowering technique w as utilized adhering to the principles of ALARA. COMPARISON: CT thoracic and lumbar spine studies of same day, chest CT 09/23/2019, CT lumbar spine 10/30 FINDINGS: CTA: Mild cardiomegaly. No pericardial effusion. Coronary artery calcifications. No thoracic aortic aneury sm. Extensive mixed plaque the thoracic aorta. Patency of the imaged great vessels. No dissection. Pu lmonary artery is opacified to the level of the proximal subsegmental branches and demonstrates no fi lling defects to suggest thromboembolic disease. CT CHEST: Unremarkable thyroid. No adenopathy. Trace right pleural effusion. Unchanged 4 mm right upper lobe so lid pulmonary nodule on image 216 series 4. Subpleural reticulation within a mid and lower lung zone prominent distribution redemonstrated. Honeycombing within the lung bases also noted with traction br onchiectasis. Central airways are patent. Unremarkable soft tissues. Degenerative changes of the spin e and shoulders. No acute fracture identified. Compression deformities at T12 and L1 are unchanged. IMPRESSION: 1. No evidence of pulmonary thromboembolic disease. 2. 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 3. Cardiomegaly. 4. Trace right pleural effusion. ACT 112: Negative or not required by law. The above report was generated using voice recognition software. It may contain grammatical, syntax o r spelling errors. Electronically signed by: Ruel Lovett M.D. 05/01/2020 12:53 PM
--- NOTE | 2020-05-01 13:04 | CT Scan Report ---
CT thoracic spine w con, CT lumbar spine w con HISTORY: 89 years-old Female pain, hist of fx acute mid and low back pain with history of prior comp ression deformity COMPARISON: CTA chest of same day, MRI lumbar spine 11/01/2019, CT abdomen pelvis 11/01/2019 TECHNIQUE: Multiple axial CT images of the thoracic and lumbar spine were obtained without the use of IV contrast. A dose lowering technique was used consistent with the principals of ALA. FINDINGS: THORACIC: Right subclavian Refaxo-l-Imyz catheter. Cardiomegaly. Chronic interstitial lung disease with trace r ight pleural effusion. No acute rib fracture identified. Unchanged mild superior endplate compression deformities of the T8, T10, and T11 vertebral bodies. Additionally, there is unchanged appearance of the severe T12 compression deformity. No acute fracture or subluxation. Anterior plate bridging oste ophytosis with mild to moderate multilevel disc space narrowing and moderate facet arthrosis. LUMBAR: Remote severe T12 and L1 compression deformities additional remote compression deformities are presen t at L2-L5. No definite additional acute fracture or subluxation identified. Severe multilevel facet arthrosis. Convex right curvature of the thoracolumbar junction. No acute sacral insufficiency fractu re. Evaluation of the central canal and neuroforamina is better assessed by MRI. No acute process of the imaged intra-abdominal structures. Extensive calcified plaque the abdominal a ling. High-grade stenosis of the right common iliac artery. IMPRESSION: 1. Multiple remote compression deformities of the thoracic and lumbar spine as above. No definite acu te fracture or subluxation identified. 2. Demineralized appearance of the bones with degenerative changes as above. ACT 112: Negative or not required by law. The above report was generated using voice recognition software. It may contain grammatical, syntax o r spelling errors. Electronically signed by: Ruel Lovett M.D. 05/01/2020 1:03 PM
[2020-05-01] MEDS ORDERED: cefTRIAXone SODIUM 1,000 MG/50 ML BAG IV STA (13:26)
--- NOTE | 2020-05-01 13:37 | History & Physical Report ---
Date of Service May 01, 2020 Assessment & Plan (1) Atrial fibrillation with RVR: -Admit to PCU -New onset -Started on Cardizem drip here in the ER, will continue -Initial troponin was negative, trend x1 more set at 1900 -Check 2D echo -Consult cardiology -Chads Vacs score is a 5, considering history of vascular disease, HTN, age: good candidate for initiation of NOAC, no hx of bleeding, will lion check eliquis -EKG reviewed -CTA completed and is negative for PE (2) SOB (shortness of breath): -Likely secondary to above as well as history of interstitial lung disease, pulmonary nodules also noted on the CTA, follows for routine surveillance with PCP -Had been called in a rx for prednisone and taken low doses for past 4 days - HOLD. (3) ILD (interstitial lung disease): -History of such, noted on CXR -Does not need supplemental O2 at baseline, does not use inhalers (4) Carotid artery disease: -History of such, right-sided 70% stenosis -atorvastatin 10 mg, ASA 81 -Saw Dr. Hernandez in October 2019- recommended annual carotid doppler (5) Hypertension: -Continue amlodipine 10 mg (6) Hyperlipidemia: -Continue statin, -Last lipid panel was completed 02/26/2020 Triglycerides = 155, cholesterol = 140, LDL = 66, HDL = 43 (7) Aortic insufficiency: - Check echo as above (8) Colon cancer: - Initially diagnosed in 2015, recurrence again in 2017 - s/p colostomy -Follows with Dr. Mayes as an outpatient (9) GERD (gastroesophageal reflux disease): -Continue diet control (10) CKD (chronic kidney disease) stage 3, GFR 30-59 ml/min: -Creatinine of 1.1-1.3 at baseline, 1.24 on admission, BUN = 20 (11) Anemia: -Hemoglobin of 12.3 on admission, improved compared to previous labs done in January and October 2019 (12) Acute UTI: -Patient admits to burning with urination, increased frequency -UA appears grossly infected, await urine culture sensitivities -Continue on IV Rocephin as started in the ER -Afebrile, white count = 11.28 (13) Osteoarthritis of hips, bilateral: -History of such, can continue Voltaren gel, gabapentin 300 TID, tramadol 50 mg TID (14) History of vertebral fracture: -History of such- CT lumbar spine today reports additional remote severe compression deformities from L2-L5, previously had been documented as involving L3 and T12 -PT/OT -Pain control as above -Continue following with orthopedics PCP as outpatient (15) DVT prophylaxis: - teds, NOAC CODE: DNR Dispo: From home, likely to remain in the hospital x 2 days History of Present Illness Primary Care Provider: Filiberto Pendleton MD This is an 89 yo F with PMHx of CAD, HTN, HLD, Afib, interstitial lung disease, colon cancer in 2016 with transverse colostomy, osteoarthritis, GERD, CKD stage III, prediabetes, interstitial cystitis, who presents with c/o shortness of breath and dyspnea on exertion. This is been going on for approximately 3 days. She notices admits to having shortness of breath when sitting still as well. She called to Dr. Sanchez's office several days ago because she felt as if she was starting to catch pneumonia, because of increased pain between her shoulder blades in her back, and was started on low-dose of prednisone daily. She has taken 4 doses of this so far, but had not seen a significant improvement. She states she has just not felt herself. She came in today because she thought that she was worsening, and was found to be in A. fib with RVR with heart rate in the 120s to 130s. She has been started on a Cardizem drip. CTA of the chest is negative for PE and for signs of pneumonia. She denies any lightheadedness or dizziness. Patient lives at home by herself, but has 7 children who are checking on her frequently. She ambulates with a cane, denies any recent falls. She has never had any issues with bleeding which would make her a poor ole date for anticoagulation. Allergies Allergy/AdvReac Type Severity Reaction Status Date / Time diltiazem Allergy Unknown TIGHTENING Verified 05/01/20 11:37 OF THROAT erythromycin base Allergy Unknown PT UNSURE Verified 05/01/20 11:37 nifedipine Allergy Unknown EXACERBATION Verified 05/01/20 11:37 INTERSTITIAL CYCSTITIS nitrofurantoin Allergy Unknown RASH Verified 05/01/20 11:37 quinine Allergy Unknown PT UNSURE Verified 05/01/20 11:37 Sulfa (Sulfonamide Allergy Unknown RASH Verified 05/01/20 11:37 Antibiotics) azithromycin [From Zithromax] AdvReac Intermediate Rash Verified 05/01/20 11:37 bexarotene AdvReac Intermediate n/v Verified 05/01/20 11:37 Beta-Blockers AdvReac Mild "Secondary Verified 05/01/20 11:37 (Beta-Adrenergic Bloc AVB" Cipro AdvReac Unknown GI SYMPTOMS Verified 04/22/18 09:21 ciprofloxacin AdvReac Unknown GI SYMPTOMS Verified 05/01/20 11:37 hydralazine AdvReac Unknown dysuria Verified 05/01/20 11:37 hydrochlorothiazide AdvReac Unknown Rash Verified 05/01/20 11:37 hydrocodone AdvReac Unknown GI UPSET Verified 05/01/20 11:37 lisinopril AdvReac Unknown "INTOLERANCE" Verified 05/01/20 11:[address] PENDLETON losartan AdvReac Unknown JITTERY,SHA Verified 05/01/20 11:37 DOHERTY meperidine AdvReac Unknown GI UPSET Verified 05/01/20 11:37 methenamine AdvReac Unknown HX STOMACH Verified 05/01/20 11:37 PAIN- SEE NOTES metronidazole AdvReac Unknown STOMACH Verified 05/01/20 11:37 PAIN Phenothiazines AdvReac Unknown SHAKEY Verified 05/01/20 11:37 prochlorperazine AdvReac Unknown "BODY Verified 05/01/20 11:37 SHAKES" Quinolones AdvReac Unknown CIPRO- Verified 05/01/20 11:37 NAUSEA, NERVOUS, CHILLS simvastatin AdvReac Unknown STOMACH Verified 05/01/20 11:37 PAIN spironolactone AdvReac Unknown RECTAL Verified 05/01/20 11:37 PRESSURE, PAIN terazosin AdvReac Unknown LIGHTHEADEDNESS Verified 05/01/20 11:37 AND NAUSEA valdecoxib AdvReac Unknown GI SYMPTOMS Verified 05/01/20 11:37 clindamycin AdvReac Unknown Verified 05/01/20 11:37 Quinidine-Quinine Analogues AdvReac Unknown Verified 05/01/20 11:37 ([facility] Home Medications Home Medications Medication Instructions Recorded Confirmed Type cholecalciferol (vitamin D3) 4,000 unit PO QAM 07/28/18 05/01/20 History [Vitamin D3] diclofenac sodium 1 % topical gel 4 gm TOP QID #100 gm 10/29/19 05/01/20 Rx Alphagan P 1 drp OPB BID 10/30/19 05/01/20 History loratadine 10 mg tablet 10 mg PO QAM PRN 11/09/19 05/01/20 History methenamine hippurate 1 gram tablet 1 g PO HS #90 tab 11/09/19 05/01/20 Rx gabapentin 300 mg capsule 300 mg PO TID #270 cap 12/10/19 05/01/20 Rx pentosan polysulfate sodium 100 mg 100 mg PO BID 90 Days #180 cap 12/28/19 05/01/20 Rx capsule azelastine 137 mcg (0.1 %) nasal 1 sprays INTNAS BID #30 ml 12/29/19 05/01/20 Rx spray aerosol clobetasol 0.05 % topical ointment 1 appln TOP 2XWK #30 gm 04/13/20 05/01/20 Rx amlodipine 10 mg PO QAM 05/01/20 05/01/20 History aspirin [Adult Aspirin Regimen] 81 mg PO QAM 05/01/20 05/01/20 History atorvastatin 10 mg PO QPM 05/01/20 05/01/20 History omeprazole 20 mg PO QAM 05/01/20 05/01/20 History tramadol 50 mg PO TID PRN 05/01/20 05/01/20 History Past Med/Surg History Medical History Cardiac murmur No significant valve disease per 2017 echo Chronic diastolic CHF (congestive heart failure) Colon cancer 2015--sx, chemo 11/2018 -recurrence w/ mets to peritoneum & lymph nodes Folate deficiency Gram negative sepsis History of colon cancer History of vertebral fracture PER 06/2018 XRAY: "There is a new superior endplate L4 compression fracture. There is an old L2 compression fracture. There are severe T12 and L1 compression fractures. The bones are osteopenic. There are multilevel degenerative changes." Intra-abdominal fluid collection MRSA nasal colonization Vertigo Surgical History H/O exploratory laparotomy 2016. status post open transverse colectomy with primary anastomosis, omentectomy, excision or biopsy of left liver lesion performed by Dr. Lomax 12/13/2016. Unfortunately postoperatively she developed intra- abdominal abscesses requiring re-exploration of her abdomen, washout of the abscesses, takedown of the primary anastomosis and creation of a colostomy and mucous fistula. History of bilateral cataract extraction History of bowel resection 2015 for colon cancer--colostomy History of cervical polypectomy History of colonoscopy History of exploratory laparotomy 11/27/18 [facility] - left hemicolectomy and small bowel resection with Dr. Lomax. Grade 1 view with MAC 3 and 7.0 ETT, EZ mask. History of temporal artery biopsy History of tooth extraction all teeth removed Hx of cervical polypectomy Family History Daughter Family history of breast cancer Father , age 93, "old age" No problems noted. 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 Other Information That Helps Us Care for You: No other: 7 children Feels Safe at Home: Yes Seatbelt Use: always Sunscreen Use: No Review of Systems Review of Systems: Constitutional: No fever, sweats or chills Eyes: No diplopia, no worsening or blurred vision ENT: normal hearing, no trouble swallowing Respiratory: No cough, sputum, + dyspnea at rest and on exertion Cardiovascular: No chest pain, tightness or palpitations Abdomen: No pain, nausea, vomiting, diarrhea or constipation Musculoskeletal: No joint pain, calf pain, swelling Neurologic: No weakness, numbness/tingling, or balance problems, uses a cane for ambulation assistance Psychiatric: No anxiety or depression Skin: No rash or itch Physical Exam Physical Exam: General: awake, alert, no apparent distress Head: Normocephalic, atraumatic ENT: PERRL, EOMI, no pharyngeal exudate, mucous membranes moist Chest: on room air, + diminished breath sounds at right base, faint crackles throughout on the right side, no wheezes or rales Cardiac: + Irregularly irregular, HR = low 100s, no murmur, no JVD, normal peripheral pulses, good capillary refill Abdominal: NABS x 4 quadrants, soft, nondistended, + colostomy bag in RLQ with soft brown stool in bag, nontender to palpation, no rebound, guarding Extremities: Normal inspection, no peripheral edema or erythema, calfs nontender to palpation Psych: Normal mood and affect Neuro: AAO x 3, strength intact bilaterally and rated 5/5, no motor deficits, speech is clear, no peripheral sensory deficits Skin: no rash or erythema Results & Data Results & Data ([facility]) Vital Signs (Past 12 Hours) Vital Signs Temp Pulse Resp BP Pulse Ox 05/01/20 13:16 112 H 27 H 96 05/01/20 13:15 116 H 20 149/87 H 05/01/20 13:01 113 H 26 H 95 05/01/20 13:00 114 H 16 146/74 H 96 05/01/20 12:46 117 H 14 131/80 92 05/01/20 12:45 131 H 27 H 05/01/20 12:43 107 H 24 96 05/01/20 12:42 108 H 25 H 114/76 97 05/01/20 12:37 103 H 22 95 05/01/20 12:15 119 H 160/81 H 97 05/01/20 12:06 102 H 138/79 96 05/01/20 12:01 118 H 141/92 H 94 05/01/20 12:00 125 H 05/01/20 11:30 125 H 20 142/90 H 98 05/01/20 11:07 123 H 18 05/01/20 11:05 115 H 12 181/81 H 95 05/01/20 10:53 37.1 C 49 L 20 107/[address] L [address] angio chest PE protocol CT DOSE: 1550.75 mGy.cm HISTORY: 89 years-old Female with Chest Pain, eval for PE. History of colon cancer. Acute chest and back pain TECHNIQUE: Multiple CTA images of the chest were obtained after the intravenous administration of 120 ml Optiray 320. Coronal and sagittal MIPS were obtained from the axial data set and were submitted for review. All measurements were obtained according to NASCET criteria. A dose lowering technique was utilized adhering to the principles of ALARA. COMPARISON: CT thoracic and lumbar spine studies of same day, chest CT 09/23/2019, CT lumbar spine 10/30/2019 FINDINGS: CTA: Mild cardiomegaly. No pericardial effusion. Coronary artery calcifications. No thoracic aortic aneurysm. Extensive mixed plaque the thoracic aorta. Patency of the imaged great vessels. No dissection. Pulmonary artery is opacified to the level of the proximal subsegmental branches and demonstrates no filling defects to suggest thromboembolic disease. CT CHEST: Unremarkable thyroid. No adenopathy. Trace right pleural effusion. Unchanged 4 mm right upper lobe solid pulmonary nodule on image 216 series 4. Subpleural reticulation within a mid and lower lung zone prominent distribution redemonstrated. Honeycombing within the lung bases also noted with traction bronchiectasis. Central airways are patent. Unremarkable soft tissues. Degenerative changes of the spine and shoulders. No acute fracture identified. Compression deformities at T12 and L1 are unchanged. IMPRESSION: 1. No evidence of pulmonary thromboembolic disease. 2. 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 3. Cardiomegaly. 4. Trace right pleural effusion. XR chest 1V portable HISTORY: 89 years-old Female Chest Pain acute atypical chest pain COMPARISON: Chest CT 09/23/2019, chest radiograph 02/13/2019 TECHNIQUE: Portable AP view of the chest FINDINGS: Cardiac silhouette is enlarged, unchanged. Calcified plaque of the thoracic aortic arch. Chronic right hemidiaphragm elevation. Chronic interstitial coarsening. Right subclavian Qyrvsd-r-Cnyw catheter. No pneumothorax or large pleural effusion or overt pulmonary edema. Degenerative changes of the shoulders and spine. IMPRESSION: Chronic findings as above without acute process. CT thoracic spine w con, CT lumbar spine w con HISTORY: 89 years-old Female pain, hist of fx acute mid and low back pain with history of prior compression deformity COMPARISON: CTA chest of same day, MRI lumbar spine 11/01/2019, CT abdomen pelvis 11/01/2019 TECHNIQUE: Multiple axial CT images of the thoracic and lumbar spine were obtained without the use of IV contrast. A dose lowering technique was used consistent with the principals of ALARA. FINDINGS: THORACIC: Right subclavian Kserrj-b-Sjas catheter. Cardiomegaly. Chronic interstitial lung disease with trace right pleural effusion. No acute rib fracture identified. Unchanged mild superior endplate compression deformities of the T8, T10, and T11 vertebral bodies. Additionally, there is unchanged appearance of the severe T12 compression deformity. No acute fracture or subluxation. Anterior plate bridging osteophytosis with mild to moderate multilevel disc space narrowing and moderate facet arthrosis. LUMBAR: Remote severe T12 and L1 compression deformities additional remote compression deformities are present at L2-L5. No definite additional acute fracture or subluxation identified. Severe multilevel facet arthrosis. Convex right curvature of the thoracolumbar junction. No acute sacral insufficiency fracture. Evaluation of the central canal and neuroforamina is better assessed by MRI. No acute process of the imaged intra-abdominal structures. Extensive calcified plaque the abdominal aorta. High-grade stenosis of the right common iliac artery. IMPRESSION: 1. Multiple remote compression deformities of the thoracic and lumbar spine as above. No definite acute fracture or subluxation identified. 2. Demineralized appearance of the bones with degenerative changes as above. Code Status & VTE Plan Code Status DNR-discussed with the patient and her daughter, Kassandra, at bedside Supervising Physician Co-Signing Physician Notes Attending Attestation and Admit Note: Pt seen/examined, chart reviewed, care plan d/w MARIO Sellers. I agree w/ the doherty components of her documentation. 89yo female w/ h/o colon can with colostomy status, ILD, numerous compression fractures of back, CKD stage 3, HTN - presents with back pain and dyspnea for several days. Upon evaluation found to be in rapid a.fib. Started on diltiazem drip in ER with excellent rate control after titration to 10mg/hr. TSH, K, mag all wnl. CTs of spine show numerous old compression fractures but no new fracture. CTA chest neg for PE. PMH, PSH, allergies, meds, sochx, famhx - reviewed HR about 80 during my visit (on dilt drip); VSS o/w gen - NAD neck - no JVD heart - irregular, regular rate, s1 s2 lungs - fine velcro-like rales bases b/l abd - soft, colostomy RLQ with brown stool, stoma clean/healthy appearing ext - trace edema labs reviewed all imaging reviewed EKG - rapid a.fib A/P: new-onset a.fib with RVR - s/p initiation of dilt drip with excellent rate control, now on 10mg/hr. start standard heparin drip w/o bolus -- check lion of eliquis in am and transition to that if lion is reasonable. CHADS-VASC is elevated calling for anticoagulation. can likely transition to PO cardizem in am. Echo in am. ILD, other medical issues stable. Pierre Heard MD PG Care Time/CCT Total # of Minutes Spent Total Time Spent with Patient: Total time spent is greater than 50% in coordination of care (as documented) at patient's floor/unit and/or counseling patient: Coding Level of Care Code 91637 Initial Inpt Care Lvl 3 Diagnoses Atrial fibrillation with RVR I48.91 SOB (shortness of breath) R06.02 ILD (interstitial lung disease) J84.9 Carotid artery disease I77.9 Hypertension I10 Hypertension type: essential hypertension Hyperlipidemia E78.5 Aortic insufficiency I35.1 Colon cancer C18.9 GERD (gastroesophageal reflux disease) K21.9 CKD (chronic kidney disease) stage 3, GFR 30-59 ml/min N18.3 Anemia D64.9 Anemia type: unspecified type Acute UTI N39.0 Osteoarthritis of hips, bilateral M16.0 Osteoarthritis type: primary History of vertebral fracture Z87.81 DVT prophylaxis Z29.9 (1) Osteoarthritis of hips, bilateral Osteoarthritis type: primary Qualified Code(s): M16.0 - Bilateral primary osteoarthritis of hip (2) Anemia Anemia type: unspecified type Qualified Code(s): D64.9 - Anemia, unspecified (3) Hypertension Hypertension type: essential hypertension Qualified Code(s): I10 - Essential (primary) hypertension
[2020-05-01] MEDS ORDERED: ACETAMINOPHEN 325 MG TAB PO PRN (15:20)
[2020-05-01] MEDS ORDERED: LORATADINE 10 MG TAB PO PRN (15:20)
[2020-05-01] MEDS ORDERED: TRAMADOL HCL 50 MG TABLET PO PRN (15:20)
[2020-05-01] MEDS ORDERED: ONDANSETRON INJ 2 MG/ML 2 ML VIAL IV PRN (15:20)
[2020-05-01] MEDS: AZELASTINE: ORDER AWAITING ACTION SCH ×2 (15:50→23:38)
[2020-05-01] MEDS: GABAPENTIN 300 MG CAP PO SCH ×2 (16:24→21:20)
[2020-05-01] MEDS: DICLOFENAC SOD 1% GEL 100 GM TUBE EXT SCH ×2 (16:24→21:22)
[2020-05-01] MEDS ORDERED: Heparin IV Standard *NO* Bolus IV SCH (20:16)
[2020-05-01] MEDS ORDERED: HEPARIN SODIUM/DEXTROSE 25,000 UNITS/500 ML BAG IV SCH (20:30)
[2020-05-01] MEDS ORDERED: ATORVASTATIN 10 MG TAB PO SCH (21:00)
[2020-05-01] MEDS: BRIMONIDINE TARTRATE-P 0.15% 5 ML BTL OP SCH (21:21)
--- NOTE | 2020-05-01 23:59 | Electrocardiogram Report ---
Test Reason : Blood Pressure : / mmHG Vent. Rate : 138 BPM Atrial Rate : 159 BPM P-R Int : 000 ms QRS Dur : 078 ms QT Int : 290 ms P-R-T Axes : 000 011 164 degrees QTc Int : 439 ms Atrial fibrillation with rapid ventricular response Possible Septal infarct Abnormal ECG When compared with ECG of 08-FEB-2019 13:07, Atrial fibrillation has replaced Sinus rhythm Vent. rate has increased BY 74 BPM Criteria for Inferior infarct are no longer Present ST now depressed in Lateral leads T wave inversion now evident in Lateral leads Confirmed by Mark Anthony Biswas ([id number]) on 05/01/2020 11:59:13 PM Referred By: REFERRED SELF Confirmed By:Mark Anthony Biswas
[2020-05-02 04:27] LABS: Albumin Level 2.7 gm/dl (3.4-5.0); BUN Creatinine Ratio 16.8 (10-20); Calcium 7.6 mg/dl (8.5-10.1); Creatinine Clr Calc Pharmacy 29.8 ml/min; Est GFR (African American) 50.8; Est GFR (Non-African American) 43.8; Potassium 4.3 mmol/L (3.5-5.1)
[2020-05-02 04:29] LABS: Partial Thromboplastin Ratio 1.7
[2020-05-02 04:30] LABS: Albumin Globulin Ratio 0.7 (0.9-2); Bilirubin,Total 0.3 mg/dl (0.2-1); Globulin 3.9 gm/dl (2.5-4.0); Total Protein 6.6 gm/dl (6.4-8.2)
[2020-05-02 04:36] LABS: Partial Thromboplastin Time 48.7 Seconds (21.0-31.0)
[2020-05-02 05:55] LABS: Estimated Average Glucose 120 mg/dl; Hemoglobin A1C 5.8 % (4.5-5.6)
[2020-05-02] MEDS: DICLOFENAC SOD 1% GEL 100 GM TUBE EXT SCH ×3 (07:45→16:22)
[2020-05-02] MEDS: BRIMONIDINE TARTRATE-P 0.15% 5 ML BTL OP SCH (07:48)
[2020-05-02] MEDS: GABAPENTIN 300 MG CAP PO SCH ×2 (07:48→13:04)
[2020-05-02] MEDS ORDERED: Nursing to Pharmacy Communication SCH (08:00)
[2020-05-02] MEDS: AZELASTINE: ORDER AWAITING ACTION SCH ×2 (08:01→15:10)
--- NOTE | 2020-05-02 08:59 | Cardiology Consultation ---
Date of Consultation May 02, 2020 Assessment & Plan (1) Atrial fibrillation with RVR: She presents with nonspecific symptoms which are probably related to atrial fibrillation, this is superimposed on back discomfort which is probably unrelated. Her heart rate was somewhat fast when she arrived, the rate corrected well on intravenous diltiazem 10 mg/h. Since we do not know the duration, although I suspect a few days, I would recommend rate control and anticoagulation. She is on heparin, I agree with switching to Eliquis at some point. I am going to discontinue her diltiazem and add a roughly equivalent oral dose of 240 mg daily starting this morning. An echocardiogram is pending. Recent thyroid studies are unremarkable. (2) Carotid artery stenosis: She has a history of carotid disease and is on aspirin for that. Per chart notes coronary disease although I do not know where that diagnosis comes from and she is not aware of having heart disease. In any case she should remain on low-dose aspirin even though she will be on an anticoagulant. (3) Second degree AV block: She is reported to have second-degree AV block and has an allergy listed to beta-blockade, I do not know when she had these findings that she does not recall. She is also listed as having problems with diltiazem, however she is on it. I think we should try diltiazem and see how she does on that. (4) Back pain: She presented with symptoms of back pain, her troponin measurements are unremarkable and although she had some ischemic change on her initial electrocardiogram I suspect she does not have a coronary syndrome to explain this discomfort and it probably is from her back. She may well of coronary disease and should be treated for it, which she already is because of her carotid disease. I would not consider further cardiac evaluation at this time. History of Present Illness Reason for Consultation: Atrial fibrillation Attending Physician: Naldo Thornton, History of Present Illness This is an 89-year-old woman who has a history of carotid disease but as far as I know no known cardiac history. She has been on aspirin for her carotid disease, she also has a lot of back problems and longstanding pain from that. She has had several weeks of exacerbation of lower back pain, however over the last several days was not feeling right in a nonspecific way. She was not having palpitations, lightheadedness or dizziness, no orthopnea or PND, no exertional chest discomfort. In the emergency room she was noted to be in atrial fibrillation with a rapid heart rate. She was therefore started on intravenous diltiazem which has helped rate control significantly. At the time of my evaluation this morning she was feeling better, she remained unaware of her rhythm, her main complaint was that of nausea. Evidently her back discomfort had improved. Allergies Allergy/AdvReac Type Severity Reaction Status Date / Time diltiazem Allergy Unknown TIGHTENING Verified 05/01/20 11:37 OF THROAT erythromycin base Allergy Unknown PT UNSURE Verified 05/01/20 11:37 nifedipine Allergy Unknown EXACERBATION Verified 05/01/20 11:37 INTERSTITIAL CYCSTITIS nitrofurantoin Allergy Unknown RASH Verified 05/01/20 11:37 quinine Allergy Unknown PT UNSURE Verified 05/01/20 11:37 Sulfa (Sulfonamide Allergy Unknown RASH Verified 05/01/20 11:37 Antibiotics) azithromycin [From Zithromax] AdvReac Intermediate Rash Verified 05/01/20 11:37 bexarotene AdvReac Intermediate n/v Verified 05/01/20 11:37 Beta-Blockers AdvReac Mild "Secondary Verified 05/01/20 11:37 (Beta-Adrenergic Bloc AVB" Cipro AdvReac Unknown GI SYMPTOMS Verified 04/22/18 09:21 ciprofloxacin AdvReac Unknown GI SYMPTOMS Verified 05/01/20 11:37 hydralazine AdvReac Unknown dysuria Verified 05/01/20 11:37 hydrochlorothiazide AdvReac Unknown Rash Verified 05/01/20 11:37 hydrocodone AdvReac Unknown GI UPSET Verified 05/01/20 11:37 lisinopril AdvReac Unknown "INTOLERANCE" Verified 05/01/20 11:[address] COLON losartan AdvReac Unknown JITTERY,SHA Verified 05/01/20 11:37 DOHERTY meperidine AdvReac Unknown GI UPSET Verified 05/01/20 11:37 methenamine AdvReac Unknown HX STOMACH Verified 05/01/20 11:37 PAIN- SEE NOTES metronidazole AdvReac Unknown STOMACH Verified 05/01/20 11:37 PAIN Phenothiazines AdvReac Unknown SHAKEY Verified 05/01/20 11:37 prochlorperazine AdvReac Unknown "BODY Verified 05/01/20 11:37 SHAKES" Quinolones AdvReac Unknown CIPRO- Verified 05/01/20 11:37 NAUSEA, NERVOUS, CHILLS simvastatin AdvReac Unknown STOMACH Verified 05/01/20 11:37 PAIN spironolactone AdvReac Unknown RECTAL Verified 05/01/20 11:37 PRESSURE, PAIN terazosin AdvReac Unknown LIGHTHEADEDNESS Verified 05/01/20 11:37 AND NAUSEA valdecoxib AdvReac Unknown GI SYMPTOMS Verified 05/01/20 11:37 clindamycin AdvReac Unknown Verified 05/01/20 11:37 Quinidine-Quinine Analogues AdvReac Unknown Verified 05/01/20 11:37 ([facility] Home Medications Home Medications Medication Instructions Recorded Confirmed Type cholecalciferol (vitamin D3) 4,000 unit PO QAM 07/28/18 05/01/20 History [Vitamin D3] diclofenac sodium 1 % topical gel 4 gm TOP QID #100 gm 10/29/19 05/01/20 Rx Alphagan P 1 drp OPB BID 10/30/19 05/01/20 History loratadine 10 mg tablet 10 mg PO QAM PRN 11/09/19 05/01/20 History methenamine hippurate 1 gram tablet 1 g PO HS #90 tab 11/09/19 05/01/20 Rx gabapentin 300 mg capsule 300 mg PO TID #270 cap 12/10/19 05/01/20 Rx pentosan polysulfate sodium 100 mg 100 mg PO BID 90 Days #180 cap 12/28/19 05/01/20 Rx capsule azelastine 137 mcg (0.1 %) nasal 1 sprays INTNAS BID #30 ml 12/29/19 05/01/20 Rx spray aerosol clobetasol 0.05 % topical ointment 1 appln TOP 2XWK #30 gm 04/13/20 05/01/20 Rx amlodipine 10 mg PO QAM 05/01/20 05/01/20 History aspirin [Adult Aspirin Regimen] 81 mg PO QAM 05/01/20 05/01/20 History atorvastatin 10 mg PO QPM 05/01/20 05/01/20 History omeprazole 20 mg PO QAM 05/01/20 05/01/20 History tramadol 50 mg PO TID PRN 05/01/20 05/01/20 History Patient History Medical History Cardiac murmur No significant valve disease per 2017 echo Chronic diastolic CHF (congestive heart failure) Colon cancer 2016--sx, chemo 11/2018 -recurrence w/ mets to peritoneum & lymph nodes Folate deficiency Gram negative sepsis History of colon cancer History of vertebral fracture PER 06/2018 XRAY: "There is a new superior endplate L4 compression fracture. There is an old L2 compression fracture. There are severe T12 and L1 compression fractures. The bones are osteopenic. There are multilevel degenerative changes." Intra-abdominal fluid collection MRSA nasal colonization Vertigo Surgical History H/O exploratory laparotomy 2017. status post open transverse colectomy with primary anastomosis, omentectomy, excision or biopsy of left liver lesion performed by Dr. Lomax 12/13/2016. Unfortunately postoperatively she developed intra- abdominal abscesses requiring re-exploration of her abdomen, washout of the abscesses, takedown of the primary anastomosis and creation of a colostomy and mucous fistula. History of bilateral cataract extraction History of bowel resection 2015 for colon cancer--colostomy History of cervical polypectomy History of colonoscopy History of exploratory laparotomy 11/27/18 [facility] - left hemicolectomy and small bowel resection with Dr. Lomax. Grade 1 view with MAC 3 and 7.0 ETT, EZ mask. History of temporal artery biopsy History of tooth extraction all teeth removed Hx of cervical polypectomy Family History Daughter Family history of breast cancer Father , age 93, "old age" No problems noted. 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 HEENT: Unremarkable Neck: No jugular venous distention, carotid pulses are irregular but otherwise normal and equal bilaterally without bruits. Pulmonary: Bilateral crackles in bases on auscultation. Cardiac: Irregular rhythm with no murmur, gallop or rub. Abdomen: Soft, nontender with normal bowel sounds. Extremities: No edema. Distal pulses intact. Neurologic: No focal findings. Gait was not tested, she uses a cane. Skin: No rash, ecchymoses or petechiae. Results & Data ([facility]) Vital Signs (Past 12 Hours) Vital Signs Temp Pulse Resp BP Pulse Ox 05/02/20 07:07 36.8 C 65 17 144/69 H 98 05/02/20 02:58 36.6 C 78 17 126/76 99 05/01/20 23:02 36.6 C 84 19 136/72 98 Laboratory Results Cardiac Enzymes 05/01/20 05/01/20 05/02/20 Range/Units 11:15 19:00 03:44 AST 11 L 9 L (15-37) U/L Troponin I < 0.015 < 0.015 (0-0.045) ng/ml Coagulation 05/01/20 05/02/20 Range/Units 11:15 03:44 PT 10.5 (9.0-12.0) Seconds APTT 23.1 48.7 H* (21.0-31.0) Seconds Lipids 05/02/20 Range/Units 03:44 Triglycerides 142 (0-150) mg/dl Cholesterol 149 (0-200) mg/dl HDL Cholesterol 42 mg/dl Cholesterol/HDL Ratio 4 CBC 05/01/20 Range/Units 11:15 WBC 11.28 H (4.8-10.8) K/uL RBC 4.21 (4.2-5.4) M/uL Hgb 12.3 (12.0-16.0) g/dL Hct 38.7 (37-47) % Plt Count 440 H (130-400) K/uL Neut # (Auto) 7.86 H (1.4-6.5) K/uL Lymph # (Auto) 2.25 (1.2-3.4) K/uL [place] # (Auto) 1.08 H (0.11-0.59) K/uL Eos # (Auto) 0.05 (0-0.5) K/uL Baso # (Auto) 0.02 (0-0.2) K/uL Comprehensive Metabolic Panel 05/01/20 05/02/20 Range/Units 11:15 03:44 Sodium 139 136 (136-145) mmol/L Potassium 4.1 4.3 (3.5-5.1) mmol/L Chloride 106 104 (98-107) mmol/L Carbon Dioxide 29 27 (21-32) mmol/L BUN 20 H 19 H (7-18) mg/dl Creatinine 1.24 H 1.12 (0.6-1.2) mg/dl Glucose 82 96 (70-99) mg/dl Calcium 8.3 L 7.6 L (8.5-10.1) mg/dl AST 11 L 9 L (15-37) U/L ALT 17 15 (12-78) U/L Alkaline Phosphatase 63 54 (45-117) U/L Total Protein 8.1 6.6 (6.4-8.2) gm/dl Albumin 3.2 L 2.7 L (3.4-5.0) gm/dl Intake and Output 05/01/20 05/02/20 05/02/20 22:59 06:59 14:59 Intake Total 496.167 / 1254.500 200 / 1254.500 Output Total 200 / 200 Balance 296.167 / 1054.500 200 / 1054.500 Intake: IV 96.167 / 654.500 Cardizem 125 mg In D5 100 ml @ 96.167 / 104.500 5 MG/HR 5 mls/hr IV .Q24H [facility] Rx#:[id number] Oral 400 / 600 200 / 600 Output: Urine 200 / 200 Other: # Unmeasured Voids 1 1 Diagnostic Findings An electrocardiogram on arrival demonstrates atrial fibrillation at a rate of 138 bpm, she does have lateral ST-T abnormalities. A comparison electrocardiogram on February 08, 2019 showed sinus rhythm. Chest x-ray: This was a portable film in the emergency room, her cardiac size may be a little bit large but it is not clear, she seems to have some densities at the bases. Not clear that this is heart failure. A chest CT suggested interstitial lung disease. No thromboembolic disease. Telemetry: On arrival her heart rate was fast, overnight on diltiazem 10 mg/h her heart rate is well controlled. PG Care Time/CCT Total # of Minutes Spent Total Time Spent with Patient: Total time spent is greater than 50% in coordination of care (as documented) at patient's floor/unit and/or counseling patient: Coding Level of Care Code 08544 Initial Inpt Care Lvl 3 Diagnoses Atrial fibrillation with RVR I48.91 Carotid artery stenosis I65.29 Second degree AV block I44.1 Back pain M54.9 Back pain laterality: unspecified Back pain location: back pain in unspecified location Chronicity: unspecified (1) Back pain Back pain laterality: unspecified Back pain location: back pain in unspecified location Chronicity: unspecified Qualified Code(s): M54.9 - Dorsalgia, unspecified
[2020-05-02] MEDS ORDERED: CHOLECALCIFEROL 1,000 UNITS 25 MCG TAB PO SCH (09:00)
[2020-05-02] MEDS ORDERED: dilTIAZem HCL 240 MG CAPCR PO SCH (09:00)
[2020-05-02] MEDS ORDERED: AMLODIPINE BESYLATE 5 MG TAB PO SCH (09:00)
[2020-05-02] MEDS ORDERED: CLOBETASOL PROPIONATE 0.05% OINT 15 GM TUBE EXT SCH ×2 (09:00→21:00)
[2020-05-02] MEDS ORDERED: PANTOprazole 40 MG TAB PO SCH (09:00)
[2020-05-02] MEDS ORDERED: ASPIRIN 81 MG ECTAB PO SCH (09:00)
--- NOTE | 2020-05-02 10:52 | Discharge Summary ---
Date of Service May 02, 2020 Admission HPI Per Admitting Provider This is an 89 yo F with PMHx of CAD, HTN, HLD, Afib, interstitial lung disease, colon cancer in 2016 with transverse colostomy, osteoarthritis, GERD, CKD stage III, prediabetes, interstitial cystitis, who presents with c/o shortness of breath and dyspnea on exertion. This is been going on for approximately 3 days. She notices admits to having shortness of breath when sitting still as well. She called to Dr. Sanchez's office several days ago because she felt as if she was starting to catch pneumonia, because of increased pain between her shoulder blades in her back, and was started on low-dose of prednisone daily. She has taken 4 doses of this so far, but had not seen a significant improvement. She states she has just not felt herself. She came in today because she thought that she was worsening, and was found to be in A. fib with RVR with heart rate in the 120s to 130s. She has been started on a Cardizem drip. CTA of the chest is negative for PE and for signs of pneumonia. She denies any lightheadedness or dizziness. Patient lives at home by herself, but has 7 children who are checking on her frequently. She ambulates with a cane, denies any recent falls. She has never had any issues with bleeding which would make her a poor candidate for anticoagulation. Principal Diagnosis Atrial fibrillation with RVR Discharge Exam Constitutional WD/WN, vitals as above Eyes PERRL, conjunctivae normal, anicteric sclerae ENMT external ear and nose normal, oropharynx normal Neck trachea midline, no thyromegaly Respiratory normal respiratory effort, lungs clear to auscultation Cardiovascular Rate/Rhythm: regular rate and + irregularly irregular Heart Sounds: normal S1 and normal S2; no murmur Extremities: normal capillary refill; no edema Gastrointestinal (Abdomen) normal bowel sounds, soft, nontender, no hepatosplenomegaly Musculoskeletal no cyanosis or clubbing, extremities motor strength 5/5 Skin no rashes, warm and dry Neurologic patellar DTR's 2+ bilat, sensation intact and PERRL, EOMI, accommodation nl, no face palsy, no dysarthria Psychiatric A+Ox3, euthymic affect Lymphatic no cervical or axillary lymphadenopathy Discharge Data Allergies Allergy/AdvReac Type Severity Reaction Status Date / Time erythromycin base Allergy Unknown PT UNSURE Verified 05/03/20 08:56 nifedipine Allergy Unknown EXACERBATION Verified 05/03/20 08:56 INTERSTITIAL CYCSTITIS nitrofurantoin Allergy Unknown RASH Verified 05/03/20 08:56 quinine Allergy Unknown PT UNSURE Verified 05/03/20 08:56 Sulfa (Sulfonamide Allergy Unknown RASH Verified 05/03/20 08:56 Antibiotics) azithromycin [From Zithromax] AdvReac Intermediate Rash Verified 05/03/20 08:56 bexarotene AdvReac Intermediate n/v Verified 05/03/20 08:56 Beta-Blockers AdvReac Mild "Secondary Verified 05/03/20 08:56 (Beta-Adrenergic Bloc AVB" Cipro AdvReac Unknown GI SYMPTOMS Verified 04/22/18 09:21 ciprofloxacin AdvReac Unknown GI SYMPTOMS Verified 05/03/20 08:56 hydralazine AdvReac Unknown dysuria Verified 05/03/20 08:56 hydrochlorothiazide AdvReac Unknown Rash Verified 05/03/20 08:56 hydrocodone AdvReac Unknown GI UPSET Verified 05/03/20 08:56 lisinopril AdvReac Unknown "INTOLERANCE" Verified 05/03/20 08:[address] COLON losartan AdvReac Unknown JITTERY,SHA Verified 05/03/20 08:56 DOHERTY meperidine AdvReac Unknown GI UPSET Verified 05/03/20 08:56 methenamine AdvReac Unknown HX STOMACH Verified 05/03/20 08:56 PAIN- SEE NOTES metronidazole AdvReac Unknown STOMACH Verified 05/03/20 08:56 PAIN Phenothiazines AdvReac Unknown SHAKEY Verified 05/03/20 08:56 prochlorperazine AdvReac Unknown "BODY Verified 05/03/20 08:56 SHAKES" Quinolones AdvReac Unknown CIPRO- Verified 05/03/20 08:56 NAUSEA, NERVOUS, CHILLS simvastatin AdvReac Unknown STOMACH Verified 05/03/20 08:56 PAIN spironolactone AdvReac Unknown RECTAL Verified 05/03/20 08:56 PRESSURE, PAIN terazosin AdvReac Unknown LIGHTHEADEDNESS Verified 05/03/20 08:56 AND NAUSEA valdecoxib AdvReac Unknown GI SYMPTOMS Verified 05/03/20 08:56 clindamycin AdvReac Unknown Verified 05/03/20 08:56 Quinidine-Quinine Analogues AdvReac Unknown Verified 05/03/20 08:56 ([facility] Consultations 05/01/20 13:18 ED Decision to Admit Stat 05/01/20 15:20 Consult Cardiology Routine Consult Case Management - Discharge Planning Routine Ordered Studies 05/01/20 11:18 CT angio chest PE protocol Stat CT lumbar spine w con Stat CT thoracic spine w con Stat Hospital Course (1) Atrial fibrillation with RVR: new onset heart rate controlled with Diltiazem drip appreciate consult from Dr. 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 Hernandez in October 2019- recommended annual carotid doppler (5) Hypertension: -Continue amlodipine 10 mg (6) Hyperlipidemia: -Continue statin, -Last lipid panel was completed 02/26/2020 Triglycerides = 155, cholesterol = 140, LDL = 66, HDL = 43 (7) Aortic insufficiency: echo done, follow up report outpatient (8) Colon cancer: - Initially diagnosed in 2016, recurrence again in 2017 - s/p colostomy -Follows with Dr. Mayes as an outpatient (9) GERD (gastroesophageal reflux disease): -Continue diet control (10) CKD (chronic kidney disease) stage 3, GFR 30-59 ml/min: -Creatinine of 1.1-1.3 at baseline, 1.24 on admission, BUN = 20 (11) Anemia: -Hemoglobin of 12.3 on admission, improved compared to previous labs done in January and October 2019 (12) Acute UTI: -Patient admits to burning with urination, increased frequency -UA appears grossly infected, urine culture with 3 types of organisms has grown E coli in the past that was rivas sensitive treated with Rocephin IV with three types of organisms could be colonization no fever, no further symptoms if symptoms recur could use Keflex (13) Osteoarthritis of hips, bilateral: -History of such, can continue Voltaren gel, gabapentin 300 TID, tramadol 50 mg TID (14) History of vertebral fracture: -History of such- CT lumbar spine today reports additional remote severe compression deformities from L2-L5, previously had been documented as involving L3 and T12 -PT/OT -Pain control as above -Continue following with orthopedics PCP as outpatient Total Time Total Time Spent Total Time Spent (In Minutes): 33 minutes Total Time Includes: Examination of the Patient, Discharge Planning, Medication Reconciliation and Communication With Other Providers (Dr. Bar) Discharge Plan Discharge Items Patient Disposition: Home - Self-Care Reason For Visit: AFIB WITH RVR Discharge Diagnosis: Atrial fibrillation with rapid ventricular response UTI, cystitis Condition on Discharge: Good Goals: use Diltiazem and Eliquis to treat afib complete a course of Keflex for UTI Activity: Resume your previous activity Non-emergency contact: Primary Care Provider Call non-emergency contact if: you have any medication questions Follow-up/Referrals: Seth Colon MD [Primary Care Provider] - (one week, afib and UTI) Renato Bar MD [Physician] - (4 weeks, afib follow up) Diet: Heart Healthy Addtl Attending Provider Instructions: Medications: continue on Diltiazem and Eliquis for atrial fibrillation rates are now better controlled Pending Studies at Discharge: Yes Studies:: echo report Stand-Alone Forms: My [facility] [employer], Smoking Cessation Medications and DC Order Prescriptions: New diltiazem HCl 240 mg Capsule,Extended Release 24hr 240 mg PO QAM 30 Days Qty: 30 RF: 3 Eliquis 5 mg Tablet 5 mg PO BID 30 Days Qty: 60 RF: 3 Continued diclofenac sodium [Voltaren] 1 % gel 4 gm TOP QID Qty: 100 RF: 3 methenamine hippurate 1 gram tablet 1 g PO HS Qty: 90 RF: 1 gabapentin 300 mg capsule 300 mg PO TID Qty: 270 RF: 3 Elmiron 100 mg capsule 100 mg PO BID 90 Days Qty: 180 RF: 0 azelastine 137 mcg (0.1 %) aerosol,spray 1 sprays INTNAS BID Qty: 30 RF: 3 loratadine [Claritin] 10 mg tablet 10 mg PO QAM PRN (Reason: allergy symptoms) RF: 0 clobetasol 0.05 % ointment 1 appln TOP 2XWK Qty: 30 RF: 3 Alphagan P 0.1 % drops 1 drp OPB BID RF: 0 cholecalciferol (vitamin D3) [Vitamin D3] 1,000 unit Tablet 4,000 unit PO QAM RF: 0 atorvastatin 10 mg tablet 10 mg PO HS RF: 0 aspirin [Adult Aspirin Regimen] 81 mg tablet,delayed release (DR/EC) 81 mg PO QAM RF: 0 tramadol 50 mg tablet 50 mg PO TID PRN (Reason: pain) RF: 0 amlodipine 10 mg tablet 10 mg PO QAM RF: 0 omeprazole 20 mg tablet,delayed release (DR/EC) 20 mg PO QAM RF: 0 No Action acetaminophen [Tylenol Extra Strength] 500 mg Tablet 500 mg PO Q6H PRN (Reason: Pain) RF: 0 Discharge Orders: Discharge Order (Routine); Ordered 05/02/20 Ordered By: Naldo Bernardo/Other Patient Handouts: AFL/Afib, Stroke Prevent Live W Atrial Fib, Understanding Atrial Fibrillation, Apixaban oral tablets, Diltiazem tablets Admission Data Admit Date/Time: 05/01/20 13:44 Attending Provider: Naldo Thornton Admit Provider: Pierre Heard Primary Care Provider: Seth Colon Other Providers: Pierre Heard ; Mark Anthony Biswas. Other Interventions: Discharge Summary Assessment (RN) Last Done: 05/02/20 16:57 Coding Level of Care Code D/C Day Management >30 mins Diagnoses Atrial fibrillation with RVR I48.91 SOB (shortness of breath) R06.02 ILD (interstitial lung disease) J84.9 Carotid artery disease I77.9 Hypertension I10 Hypertension type: essential hypertension Hyperlipidemia E78.5 Aortic insufficiency I35.1 Colon cancer C18.9 GERD (gastroesophageal reflux disease) K21.9 CKD (chronic kidney disease) stage 3, GFR 30-59 ml/min N18.3 Anemia D64.9 Anemia type: unspecified type Acute UTI N39.0 Osteoarthritis of hips, bilateral M16.0 Osteoarthritis type: primary History of vertebral fracture Z87.81
[2020-05-02] MEDS ORDERED: APIXABAN 5 MG TABLET PO SCH (11:00)
--- NOTE | 2020-05-02 12:02 | XCELERA ---
[id number]
--- NOTE | 2020-05-02 13:35 | Student Report ---
[facility] Student Progress Note Date of Service Date of service: May 02, 2020 Subjective Subjective: Overall feeling well. She reports some nausea overnight, but this has since resolved. Endorses baseline urinary frequency, but reports no longer having a burning sensation. Denies dizziness, headache, chest pain, palpitations, SOB, cough. ROS ROS: See HPI Physical Exam Physical Exam: GENERAL: pleasant, lying in bed, nad HEENT: conjunctiva without injection b/l CHEST: course crackles at lung bases bilaterally, no rhonchi or wheezes, normal respiratory effort CARDIOVASCULAR: irregular heart beat, no murmurs, gallops or rubs, no lower extremity edema ABD: no hepatosplenomegaly or masses, nontender to palpation, nondistended, normal active bowel sounds PSYCH: alert and oriented x 3, speech nl rate and volume, thought process linear, affect appropriate for situation A&P A&P: (1) Atrial fibrillation with RVR: -Admit to PCU -New onset -Cardiology consulted -recommended rate control and anticoagulation -IV diltiazem switched to daily 240mg PO -recommends Eliquis -Chads Vacs score is a 5, considering history of vascular disease, HTN, age: good candidate for initiation of NOAC, no hx of bleeding, will lion check eliquis -EKG reviewed -Initial and repeat troponin were both negative -2D echo completed, pending final report -CTA completed and is negative for PE (2) SOB (shortness of breath): RESOLVED - No longer complaining of SOB. Was likely secondary to above as well as history of interstitial lung disease, pulmonary nodules also noted on the CTA, follows for routine surveillance with PCP -Had been called in a rx for prednisone and taken low doses for past 4 days - HOLD. (3) ILD (interstitial lung disease): -History of such, noted on CXR -Does not need supplemental O2 at baseline, does not use inhalers (4) Carotid artery disease: -History of such, right-sided 70% stenosis -atorvastatin 10 mg, ASA 81 -Saw Dr. Hernandez in October 2019- recommended annual carotid doppler (5) Hypertension: -Continue amlodipine 10 mg (6) Hyperlipidemia: -Continue statin, -Last lipid panel was completed 02/26/2020 Triglycerides = 155, cholesterol = 140, LDL = 66, HDL = 43 (7) Aortic insufficiency: - Check echo as above (8) Colon cancer: - Initially diagnosed in 2016, recurrence again in 2017 - s/p colostomy -Follows with Dr. Mayes as an outpatient (9) GERD (gastroesophageal reflux disease): -Continue diet control (10) CKD (chronic kidney disease) stage 3, GFR 30-59 ml/min: -Creatinine of 1.1-1.3 at baseline, 1.24 on admission, BUN = 20 (11) Anemia: -Hemoglobin of 12.3 on admission, improved compared to previous labs done in January and October 2019 (12) Acute UTI: - Documented hx of multiple UTIs colonized by E coli w/ sensitivity to cephalosporins -Burning with urination improved since initiation of antibiotics, increased frequency baseline -UA appears grossly infected, but poor sample. Order repeat w/ cultures -IV Rocephin started in the ER, switched to IV ceftriaxone. May switch to cephalexin PO upon discharge. -Afebrile, white count = 11.28 (13) Osteoarthritis of hips, bilateral: -History of such, can continue Voltaren gel, gabapentin 300 TID, tramadol 50 mg TID (14) History of vertebral fracture: -History of such- CT lumbar spine today reports additional remote severe compression deformities from L2-L5, previously had been documented as involving L3 and T12 -PT/OT -Pain control as above -Continue following with orthopedics PCP as outpatient (15) DVT prophylaxis: - teds NOAC CODE: DNR Dispo: From home, likely discharge today
[2020-05-02] MEDS ORDERED: cefTRIAXone SODIUM 1,000 MG in DEXTROSE 5% 50 ML IV SCH (14:00)
[2020-05-02 15:13] VITALS: BP 156/61; PULSE 80; TEMP 98.1; O2SAT 97
== END 2020-05-02 18:24 | disposition home or self-care (01) | DRG 309 ==
LOC: ED 10:47 → SUATTDRO 13:44 → 2S 13:44

== ENCOUNTER 2021-02-02 15:51 | Inpatient (IN) ==
[2021-02-02] MEDS ORDERED: SODIUM CHLORIDE 0.9% 500 ML IV ONE (16:23)
[2021-02-02] MEDS ORDERED: ONDANSETRON INJ 2 MG/ML 2 ML VIAL IV STA (16:23)
[2021-02-02] MEDS ORDERED: ACETAMINOPHEN 1,000 MG/100 ML VIAL IV STA (16:23)
[2021-02-02] MEDS ORDERED: fentaNYL 25 MCG/HR TDSY TD STA (16:28)
[2021-02-02] MEDS ORDERED: MoRPHine SULFATE 4 MG/ML 1 ML CARP\\VIAL IV STA ×2 (16:29→18:12)
--- NOTE | 2021-02-02 16:31 | Emergency Department Note ---
Impression & Plan Colon cancer metastasized to multiple sites, Small bowel obstruction, Abdominal pain ED Provider Note NAME: PATY REYNOSO AGE: 89 SEX: F : 1930 ARRIVES VIA: Ambulance INFORMANT: Patient, ED PROVIDER(S): Lavelle Neri MD CHIEF COMPLAINT: Abd pain HPI: This is an 89-year-old female who presents emergency department complaining of abdominal pain. The patient reports that she is having abdominal pain in the left lower quadrant that radiates into her back. The patient is on fentanyl and has taken oxycodone for the pain without relief. In addition the patient is also complaining of nausea and vomiting that has been ongoing for the past 3 days. She was sent in by home health nursing over concerns with the patient is dehydrated. She describes the pain as an aching sensation and nothing appears to make the pain better or worse. She reports she has had crackers to eat today but otherwise has been unable to keep anything else down. ROS: See above HPI for pertinent positives & negatives. A total of 10 systems reviewed and were otherwise negative. PAST MEDICAL HISTORY: See Below PAST SURGICAL HISTORY: See Below FAMILY HISTORY: See Below SOCIAL HISTORY: See Below HOME MEDICATIONS: See Below ALLERGIES: What the focus with this new schedule can lead VITALS: See Below PHYSICAL EXAMINATION: VITAL SIGNS - Vital signs and nursing notes were reviewed. GENERAL - 89-year-old female appearing stated age who is in no acute distress. Communicates well with provider and answers questions appropriately. SKIN - Without rashes. HEAD - NC/AT. EYES - PERRL with EOMI bilaterally. Sclera anicteric. Palpebral conjunctiva pink and moist with no injection noted. EARS - No deformities of external structures noted on gross examination bilaterally. No who is a PA adult who is a doctor NOSE - Midline and without cyanosis. No epistaxis or purulent drainage noted. Septum midline without deviation or septal hematoma noted. MOUTH/OROPHARYNX - Without perioral cyanosis. Buccal mucosa pink and moist and without leukoplakia. Tongue midline with equal elevation of palate bilaterally. No tonsillar hypertrophy, erythema, or exudates noted. dentition noted. NECK - Neck with FROM. Supple to palpation. lymphadenopathy noted. No nuchal rigidity. CHEST WALL: Port in place LUNGS - Chest wall symmetric without accessory muscle use, intercostals retractions, or central cyanosis. Normal vesicular breath sounds CTA B/L. No wheezes, rales, or rhonchi appreciated. CARDIAC - RRR with S1/S2. No murmur, rubs, or gallops appreciated. ABDOMEN - Abdominal contour that persaud when I urinate without pulsations or visible masses. BS normoactive all four quadrants. No tenderness, palpable masses, hepatosplenomegaly, or ascites noted. EXTREMITIES - No clubbing or peripheral cyanosis. No pretibial edema present. +3/5 radial, posterior tibial, and dorsalis pedis pulses palpated throughout. +5/5 strength noted in UE/LE bilaterally. NEUROLOGIC - Cranial nerves II through XII grossly intact. Sensory intact to light touch throughout. Patellar reflexes +2/4. PSYCH - A&Ox3 and cooperates fully with examiner. Pt is very pleasant and interacts well with examiner. MEDICAL DECISION MAKING: Patient was seen and evaluated as above in room B7. Review was performed of nursing notes and vital signs. I did review pertinent previous visits and patient history. After obtaining a thorough history and physical examination the above work up was performed. This is an 89-year-old female who presents emergency department complaining of abdominal pain. Patient has a complicated history of metastatic cancer. Using shared medical decision making with the patient and daughter I increase the patient's fentanyl patch and gave the patient morphine to get her pain under co ntrol. She was also given IV Zofran. She was sent for CAT scan of the abdomen pelvis which was concerning for small bowel obstruction I did discuss the case with both surgery as well as the medicine service. For the time being the patient is content with being admitted to the hospitalist. I did recommend a NG tube however the patient is refusing this. An order was placed for continuous cardiac monitoring. The monitor shows a rate of 91 with Normal SInus rhythm. The patient was evaluated during a period of high volume and high acuity during the global COVID-19 pandemic, and that diagnosis was suspected/considered upon their initial presentation. Their evaluation, treatment and testing was consistent with current guidelines for patients who present with complaints or symptoms that may be related to COVID-19. Patient was seen while provider was wearing PPE. Triage Nursing notes reviewed. Prior medical records reviewed Vital Signs: reviewed and remarkable for no significant abnormalities Differential diagnosis: Appendicitis, ovarian cyst, ovarian torsion, ectopic , TOA, PID, infections, diverticulitis, UTI, obstruction, mesenteric ischemia, aortic pathology, inflammatory bowel disease, renal colic, PUD, pancreatitis, biliary pathology, hernia, volvulus, constipation, as well as other pathologies. ER treatment provided: See below Diagnostics interpreted by me: ECG: EKG shows a normal sinus rhythm old septal infarct QTC is 442 ventricular rate is 88 EKG is compared to 12/08/2020 EKG is unchanged to previous. Laboratory studies: As stated above and show below. Imaging studies: See below Consultation(s): Gen Surg Internal Medicine ED COURSE: Past Med/Surg History Medical History Acute thoracic back pain Back pain Cardiac murmur No significant valve disease per 2017 echo Chronic diastolic CHF (congestive heart failure) Folate deficiency Gram negative sepsis History of colon cancer Hypertension Intra-abdominal fluid collection MRSA nasal colonization SOB (shortness of breath) Vertigo Surgical History H/O exploratory laparotomy 2016. status post open transverse colectomy with primary anastomosis, omentectomy, excision or biopsy of left liver lesion performed by Dr. Lomax 12/13/2016. Unfortunately postoperatively she developed intra- abdominal abscesses requiring re-exploration of her abdomen, washout of the abscesses, takedown of the primary anastomosis and creation of a colostomy and mucous fistula. History of bilateral cataract extraction History of bowel resection 2015 for colon cancer--colostomy History of cervical polypectomy History of colonoscopy History of exploratory laparotomy 11/27/18 [facility] - left hemicolectomy and small bowel resection with Dr. Lomax. Grade 1 view with MAC 3 and 7.0 ETT, EZ mask. History of temporal artery biopsy History of tooth extraction all teeth removed Hx of cervical polypectomy Family History Daughter Family history of breast cancer Father , age 93, "old age" No problems noted. 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 Other Information That Helps Us Care for You: No other: 7 children Feels Safe at Home: Yes Safety Concerns: Feels Safe At This Time Seatbelt Use: always Sunscreen Use: No Assistive Devices: Cane Allergies Allergies Allergy/AdvReac Type Severity Reaction Status Date / Time metoprolol Allergy Severe Anaphylaxis Verified 02/02/21 16:49 erythromycin base Allergy Unknown PT UNSURE Verified 02/02/21 16:15 nifedipine Allergy Unknown EXACERBATION Verified 02/02/21 16:15 INTERSTITIAL CYCSTITIS nitrofurantoin Allergy Unknown RASH Verified 02/02/21 16:15 quinine Allergy Unknown PT UNSURE Verified 02/02/21 16:15 Sulfa (Sulfonamide Allergy Unknown RASH Verified 02/02/21 16:15 Antibiotics) azithromycin [From Zithromax] AdvReac Intermediate Rash Verified 02/02/21 16:15 [email or web address] AdvReac Intermediate n/v Verified 02/02/21 16:15 Beta-Blockers AdvReac Mild "Secondary Verified 02/02/21 16:15 (Beta-Adrenergic Bloc AVB" ciprofloxacin AdvReac Unknown GI SYMPTOMS Verified 02/02/21 16:15 hydralazine AdvReac Unknown dysuria Verified 02/02/21 16:15 hydrochlorothiazide AdvReac Unknown Rash Verified 02/02/21 16:15 hydrocodone AdvReac Unknown GI UPSET Verified 02/02/21 16:15 lisinopril AdvReac Unknown "INTOLERANCE" Verified 02/02/21 16:[address] COLON losartan AdvReac Unknown JITTERY,SHA Verified 02/02/21 16:15 DOHERTY meperidine AdvReac Unknown GI UPSET Verified 02/02/21 16:15 methenamine AdvReac Unknown HX STOMACH Verified 02/02/21 16:15 PAIN- SEE NOTES metronidazole AdvReac Unknown STOMACH Verified 02/02/21 16:15 PAIN Phenothiazines AdvReac Unknown SHAKEY Verified 02/02/21 16:15 prochlorperazine AdvReac Unknown "BODY Verified 02/02/21 16:15 SHAKES" Quinolones AdvReac Unknown CIPRO- Verified 02/02/21 16:15 NAUSEA, NERVOUS, CHILLS simvastatin AdvReac Unknown STOMACH Verified 02/02/21 16:15 PAIN spironolactone AdvReac Unknown RECTAL Verified 02/02/21 16:15 PRESSURE, PAIN terazosin AdvReac Unknown LIGHTHEADEDNESS Verified 02/02/21 16:15 AND NAUSEA valdecoxib AdvReac Unknown GI SYMPTOMS Verified 02/02/21 16:15 clindamycin AdvReac Unknown Verified 02/02/21 16:15 Quinidine-Quinine Analogues AdvReac Unknown Verified 02/02/21 16:15 ([facility] Meds Home Medications Medication Instructions Recorded Confirmed Alphagan P 1 drp OPB BID 10/30/19 02/02/21 cholecalciferol (vitamin D3) 125 mcg PO DAILY 09/28/20 02/02/21 acetaminophen 325 mg capsule 325 mg PO QID PRN 12/28/20 02/02/21 clonidine HCl 0.1 mg tablet 0.1 mg PO BID 12/28/20 02/02/21 oxycodone 5 mg tablet 5 mg PO Q6H PRN 12/28/20 02/02/21 sennosides 8.6 mg-docusate sodium 1 tab-cap PO DAILY 12/28/20 02/02/21 50 mg tablet Previous Rx's Medication Instructions Recorded amlodipine 10 mg tablet 10 mg PO QAM #90 tab 06/01/20 pentosan polysulfate sodium 100 mg 100 mg PO BID 90 Days #180 cap 06/22/20 capsule gabapentin 300 mg capsule 300 mg PO TID #270 cap 07/27/20 azelastine 137 mcg (0.1 %) nasal 1 spray INTNAS BID #30 ml 08/22/20 spray aerosol apixaban 5 mg tablet 5 mg PO BID 90 Days #180 tab 09/05/20 tramadol 50 mg tablet 50 mg PO TID PRN 30 Days #90 tab 10/19/20 omeprazole 20 mg tablet,delayed 20 mg PO QAM #30 tab 10/26/20 release clobetasol 0.05 % topical ointment 1 applic TOP 2XWK #30 gm 11/21/20 benzonatate 200 mg capsule 200 mg PO HS PRN #30 cap 01/16/21 fentanyl 12 mcg/hr transdermal 1 patch TRANSDERMAL Q72H #10 ea 01/31/21 patch ondansetron HCl 4 mg tablet 4 mg PO Q4H #30 tab 01/31/21 Results & Data (ED) Vital Signs Vital Signs - 24 hr 02/02/21 15:25 02/02/21 15:58 02/02/21 16:04 Temperature 36.8 C Temperature Source Oral Pulse Rate 91 H 85 87 Pulse Rhythm Respiratory Rate 20 23 24 Respiratory Effort / Characteristics Non-Labored Spontaneous Respiratory Depth Normal Respiratory Pattern Regular Blood Pressure 182/67 H 182/67 H Blood Pressure Mean 105 105 Blood Pressure Position Lying Pulse Oximetry 98 Oxygen Delivery Method Room Air Sepsis Recent Fever Within 48 Hours No Sepsis New/Unexplained Change in Mental Status N/A Sepsis Action Taken by Nursing No Action Required 02/02/21 16:30 02/02/21 17:00 02/02/21 17:02 Temperature Temperature Source Pulse Rate 96 H 86 84 Pulse Rhythm Respiratory Rate 29 H 26 H 25 H Respiratory Effort / Characteristics Respiratory Depth Respiratory Pattern Blood Pressure 169/62 H Blood Pressure Mean 97 Blood Pressure Position Pulse Oximetry Oxygen Delivery Method Sepsis Recent Fever Within 48 Hours Sepsis New/Unexplained Change in Mental Status Sepsis Action Taken by Nursing 02/02/21 17:05 02/02/21 17:30 02/02/21 18:32 Temperature Temperature Source Oral Pulse Rate 92 H 96 H Pulse Rhythm Regular Respiratory Rate 28 H 23 Respiratory Effort / Characteristics Respiratory Depth Respiratory Pattern Blood Pressure 171/69 H Blood Pressure Mean 103 Blood Pressure Position Pulse Oximetry Oxygen Delivery Method Room Air Sepsis Recent Fever Within 48 Hours Sepsis New/Unexplained Change in Mental Status Sepsis Action Taken by Nursing 02/02/21 19:00 02/02/21 19:30 02/02/21 20:00 Temperature Temperature Source Pulse Rate 83 108 H 106 H Pulse Rhythm Respiratory Rate 19 23 20 Respiratory Effort / Characteristics Respiratory Depth Respiratory Pattern Blood Pressure Blood Pressure Mean Blood Pressure Position Pulse Oximetry Oxygen Delivery Method Sepsis Recent Fever Within 48 Hours Sepsis New/Unexplained Change in Mental Status Sepsis Action Taken by Nursing 02/02/21 20:30 Temperature Temperature Source Pulse Rate Pulse Rhythm Respiratory Rate 23 Respiratory Effort / Characteristics Respiratory Depth Respiratory Pattern Blood Pressure Blood Pressure Mean Blood Pressure Position Pulse Oximetry Oxygen Delivery Method Sepsis Recent Fever Within 48 Hours Sepsis New/Unexplained Change in Mental Status Sepsis Action Taken by Snf Medications Current Medication List: was personally reviewed by me Laboratory Data Attestation: I reviewed the patient's lab results. Result diagrams: 02/02/21 17:00 02/02/21 17:00 Lab Results 02/02/21 02/02/21 02/02/21 Range/Units 17:00 17:00 17:10 WBC 6.25 (4.8-10.8) K/uL RBC 3.59 L (4.2-5.4) M/uL Hgb 10.3 L (12.0-16.0) g/dL POC Hgb 10.5 L (12.0-16.0) g/dl Hct 31.4 L (37-47) % POC Hct 31 L (37-47) % MCV 87.5 (80-100) fL MCH 28.7 (25-34) pg MCHC 32.8 (32-36) g/dL RDW Std Deviation 47.5 H (36.4-46.3) fL RDW Coeff of Wayne 14.8 H (11.5-14.5) % Plt Count 518 H (130-400) K/uL MPV 8.7 (7.4-10.4) fL Immature Gran % (Auto) 0.2 % Neut % (Auto) 75.1 % Lymph % (Auto) 16.3 % [place] % (Auto) 7.4 % Eos % (Auto) 0.5 % Baso % (Auto) 0.5 % Neut # (Auto) 4.70 (1.4-6.5) K/uL Lymph # (Auto) 1.02 L (1.2-3.4) K/uL [place] # (Auto) 0.46 (0.11-0.59) K/uL Eos # (Auto) 0.03 (0-0.5) K/uL Baso # (Auto) 0.03 (0-0.2) K/uL Immature Gran # (Auto) 0.01 (0.00-0.02) K/uL POC Sodium 131 L (135-144) mmol/L Sodium 131 L (136-145) mmol/L POC Potassium 4.0 (3.3-5.0) mmol/L Potassium 4.0 (3.5-5.1) mmol/L POC Chloride 95 L (101-112) mmol/L Chloride 97 L (98-107) mmol/L Carbon Dioxide 25 (21-32) mmol/L POC Total CO2 28 (24-31) mmol/L Anion Gap 9.0 (3-11) POC Anion Gap 13.0 L (16-25) mmol/L POC BUN 17 (7-18) mg/dl BUN 19 H (7-18) mg/dl Creatinine 1.12 (0.6-1.2) mg/dl POC Creatinine 1.3 (0.6-1.3) mg/dl Est Cr Clr Drug Dosing 28.2 ml/min Est GFR ( Amer) 50.4 ml/min Est GFR (Non-Af Amer) 43.5 ml/min BUN/Creatinine Ratio 16.5 (10-20) Glucose 98 (70-99) mg/dl POC Glucose (other) 98 (70-99) mg/dl Calcium 8.8 (8.5-10.1) mg/dl POC Ioniz Calcium Meliton 1.10 L (1.12-1.32) mmol/l Total Bilirubin 0.4 (0.2-1) mg/dl AST 29 (15-37) U/L ALT 39 (12-78) U/L Alkaline Phosphatase 120 H (45-117) U/L Total Protein 8.1 (6.4-8.2) gm/dl Albumin 2.5 L (3.4-5.0) gm/dl Globulin 5.6 H (2.5-4.0) gm/dl Albumin/Globulin Ratio 0.4 L (0.9-2) Lipase 41 L (73-393) U/L Urine Color Urine Appearance (Clear) Urine pH (4.5-7.5) Ur Specific Esmond (1.000-1.030) Urine Protein (Negative) Urine Glucose (UA) (Negative) Urine Ketones (Negative) Urine Blood (Negative) Urine Nitrite (Negative) Urine Bilirubin (Negative) Urine Urobilinogen (Negative) Ur Leukocyte Esterase (Negative) COVID-19 Eval Order SARS-CoV-2 (PCR) (Negative) 02/02/21 02/02/21 02/02/21 Range/Units 17:25 17:25 18:35 WBC (4.8-10.8) K/uL RBC (4.2-5.4) M/uL Hgb (12.0-16.0) g/dL POC Hgb (12.0-16.0) g/dl Hct (37-47) % POC Hct (37-47) % MCV (80-100) fL MCH (25-34) pg MCHC (32-36) g/dL RDW Std Deviation (36.4-46.3) fL RDW Coeff of Wayne (11.5-14.5) % Plt Count (130-400) K/uL MPV (7.4-10.4) fL Immature Gran % (Auto) % Neut % (Auto) % Lymph % (Auto) % [place] % (Auto) % Eos % (Auto) % Baso % (Auto) % Neut # (Auto) (1.4-6.5) K/uL Lymph # (Auto) (1.2-3.4) K/uL [place] # (Auto) (0.11-0.59) K/uL Eos # (Auto) (0-0.5) K/uL Baso # (Auto) (0-0.2) K/uL Immature Gran # (Auto) (0.00-0.02) K/uL POC Sodium (135-144) mmol/L Sodium (136-145) mmol/L POC Potassium (3.3-5.0) mmol/L Potassium (3.5-5.1) mmol/L POC Chloride (101-112) mmol/L Chloride (98-107) mmol/L Carbon Dioxide (21-32) mmol/L POC Total CO2 (24-31) mmol/L Anion Gap (3-11) POC Anion Gap (16-25) mmol/L POC BUN (7-18) mg/dl BUN (7-18) mg/dl Creatinine (0.6-1.2) mg/dl POC Creatinine (0.6-1.3) mg/dl Est Cr Clr Drug Dosing ml/min Est GFR ( Amer) ml/min Est GFR (Non-Af Amer) ml/min BUN/Creatinine Ratio (10-20) Glucose (70-99) mg/dl POC Glucose (other) (70-99) mg/dl Calcium (8.5-10.1) mg/dl POC Ioniz Calcium Meliton (1.12-1.32) mmol/l Total Bilirubin (0.2-1) mg/dl AST (15-37) U/L ALT (12-78) U/L Alkaline Phosphatase (45-117) U/L Total Protein (6.4-8.2) gm/dl Albumin (3.4-5.0) gm/dl Globulin (2.5-4.0) gm/dl Albumin/Globulin Ratio (0.9-2) Lipase (73-393) U/L Urine Color Yellow Urine Appearance Clear (Clear) Urine pH 8.0 H (4.5-7.5) Ur Specific Esmond 1.011 (1.000-1.030) Urine Protein Negative (Negative) Urine Glucose (UA) Negative (Negative) Urine Ketones Negative (Negative) Urine Blood Negative (Negative) Urine Nitrite Negative (Negative) Urine Bilirubin Negative (Negative) Urine Urobilinogen Negative (Negative) Ur Leukocyte Esterase Negative (Negative) COVID-19 Eval Order Covid19 at [facility] SARS-CoV-2 (PCR) NEGATIVE (Negative) Administered Medications Brimonidine Tartrate (Brimonidine Tartrate-P 0.15% 5 Ml Btl) 1 drops OP BID TRICIA Stop: 03/04/21 22:29 Last Admin: 02/02/21 22:29 Dose: 1 drops Documented by: [id number] Hydromorphone HCl (Hydromorphone Inj 0.5 Mg/0.5 Ml Syr) 0.5 mg IV Q4H PRN PRN Reason: Pain (1,2,3,4,5) Stop: 02/16/21 21:54 Last Admin: 02/02/21 22:23 Dose: 0.5 mg Documented by: [id number] Potassium Chloride/Sodium Chloride (Normal Saline W/20 Meq Kcl) 20 meq in 1,000 mls @ 125 mls/hr IV .Q8H TRICIA Stop: 03/04/21 22:14 Last Admin: 02/02/21 22:29 Dose: 125 mls/hr Documented by: [id number] Discontinued Medications Diltiazem HCl (Diltiazem Hcl 30 Mg Tab) 30 mg PO NOW ONE Stop: 02/02/21 21:56 Last Admin: 02/02/21 22:42 Dose: 30 mg Documented by: [id number] Famotidine (Famotidine 20mg/5ml Iv Push) Confirm Administered Dose 20 mg IV .STK-MED ONE Stop: 02/02/21 18:35 Last Admin: 02/02/21 18:35 Dose: 20 mg Documented by: [id number] Fentanyl (Fentanyl 25 Mcg/Hr Tdsy) 25 mcg TD NOW STA Stop: 02/02/21 16:29 Last Admin: 02/02/21 17:09 Dose: 25 mcg Documented by: [id number] Acetaminophen (Ofirmev) 1,000 mg in 100 mls @ 400 mls/hr IV NOW STA Stop: 02/02/21 16:37 Last Infusion: 02/02/21 17:13 Dose: 0 mls/hr Documented by: [id number] Admin: 02/02/21 16:58 Dose: 400 mls/hr Documented by: [id number] Sodium Chloride (Nss) 500 mls @ 999 mls/hr IV .Q31M ONE Stop: 02/02/21 16:53 Last Infusion: 02/02/21 17:29 Dose: 0 mls/hr Documented by: [id number] Admin: 02/02/21 16:58 Dose: 999 mls/hr Documented by: [id number] Famotidine 20 mg/ Syringe 5 mls @ 2.5 mls/min IV NOW STA Stop: 02/02/21 18:13 Last Admin: 02/02/21 18:35 Dose: Not Given Documented by: [id number] Ioversol (Optiray 300 100ml) 89 ml IV ONCE ONE Stop: 02/02/21 18:15 Last Admin: 02/02/21 18:14 Dose: 100 ml Documented by: [id number] Miscellaneous (Fentanyl Patch Remove & Waste) 1 ea N/A Q3D TRICIA Stop: 03/04/21 16:29 Last Admin: 02/02/21 17:09 Dose: 1 ea Documented by: [id number] Cosigned by: [id number] Miscellaneous (Fentanyl Patch Remove & Waste) 1 ea N/A Q3D TRICIA Stop: 03/04/21 16:29 Last Admin: 02/02/21 18:37 Dose: Not Given Documented by: [id number] Morphine Sulfate (Morphine Sulfate 4 Mg/Ml 1 Ml Carp\\Vial) 3 mg IV NOW STA Stop: 02/02/21 16:30 Last Admin: 02/02/21 16:57 Dose: 3 mg Documented by: [id number] Morphine Sulfate (Morphine Sulfate 4 Mg/Ml 1 Ml Carp\\Vial) 3 mg IV NOW STA Stop: 02/02/21 18:13 Last Admin: 02/02/21 18:33 Dose: 3 mg Documented by: [id number] Ondansetron HCl (Ondansetron Inj 2 Mg/Ml 2 Ml Vial) 4 mg IV NOW STA Stop: 02/02/21 16:24 Last Admin: 02/02/21 16:57 Dose: 4 mg Documented by: [id number] Sucralfate (Sucralfate 1 Gm Tab) 1 gm PO NOW STA Stop: 02/02/21 18:13 Last Admin: 02/02/21 18:34 Dose: 1 gm Documented by: [id number] Imaging Data Attestation: I personally reviewed and interpreted this imaging study as follows: Radiologist's Impression: Abdomen/Pelvis CT 02/02/21 16:[address] WITH IV CONTRAST CT DOSE: 445.31 mGycm HISTORY: Acute left-sided abdominal pain Pt c/o left sided abd pain TECHNIQUE: Multiaxial CT images of the abdomen and pelvis were performed following the IV administration of 89 cc of Optiray, A dose lowering technique was utilized adhering to the principles of ALARA. COMPARISON STUDY: CT abdomen and pelvis 12/08/2020 FINDINGS: Small left and trace right pleural effusions. Chronic interstitial lung disease redemonstrated. The imaged inferior cardiac chambers are unremarkable. No pneumatosis or pneumoperitoneum. Unremarkable spleen and adrenal glands. Mildly distended gallbladder is unchanged mild wall thickening. Unchanged prominence of the extrahepatic biliary tree with the common bile duct measuring up to 8 mm. Mild generalized pancreatic atrophy. There are a few probable cyst of the right hepatic lobe redemonstrated measuring up to 6 mm. Patency of the hepatic and portal veins. The hepatic dome is not imaged in its entirety. Mildly atrophic left kidney. There are a few subcentimeter right-sided renal hypodensities suggestive of probable cysts. No hydronephrosis. Unremarkable urinary bladder and uterus. Extensive calcified plaque of the abdominal aorta without aneurysm. Chronic occlusion of the right common iliac artery. Reconstitution of flow within the internal and external iliac arteries. No adenopathy. The appendix is fluid-filled and measures 7 mm, similar to comparison. No associated inflammation. Postoperative changes of the bowel redemonstrated which includes prior left colon resection with right lower quadrant colostomy. Numerous small bowel anastomoses. There is a multilocular septated hypodense mass/fluid collection within the abdominal left lower quadrant measuring 10.3 x 7.6 x 14 cm, previously measured at 9.3 x 7.3 x 14 cm and again noted to involve the small bowel anastomosis. There is discontinuity of the bowel wall at the anastomosis suggestive of a contained perforation with invasion/extension into the left psoas and iliacus musculature. A fistulous tract is again noted exte nding with the adjacent sigmoid colon. This involves multiple loops of adjacent small bowel. Dilated loops of small bowel central abdomen with air-fluid levels. There is focal wall thickening of the small bowel with transition point upstream to the anastomosis and the abdominal left lower quadrant on image 208 series 3. Hypodense lesions/flexion of the left abdominal wall measures 1.9 x 1.4 x 2.8 cm and is contiguous with a subcutaneous scar. This appears similar to comparison. Unremarkable soft tissues. Demineralized appearance of the bones. Unchanged numerous compression deformities of the thoracolumbar spine. IMPRESSION: 1. Dilated air and fluid-filled loops of small bowel within the central abdomen with focal wall thickening and transition point within the abdominal left lower quadrant upstream to the small bowel anastomosis is suggestive of small bowel obstruction. 2. Complex multilocular septated hypodense mass/fluid collection within the abdominal left lower quadrant involving the small bowel anastomosis with invasion into the left psoas and iliacus muscles appears similar to comparison measuring up to 14 cm. 3. 2.8 cm lesion/collection of the left abdominal wall also appears similar to comparison and may reflect a complex seroma. 4. Unchanged gallbladder distention with wall thickening. 5. Small left and trace right pleural effusions. 6. Additional findings as above. ACT 112: Negative or not required by law. The above report was generated using voice recognition software. It may contain grammatical, syntax or spelling errors. Electronically signed by: David Lovett M.D. 02/02/2021 6:53 PM Discharge Plan Visit Data Chief Complaint: Abdominal Pain Stated Complaint: VOMITING, WEAKNESS ED Provider: Lavelle Neri Discharge Problem: Colon cancer metastasized to multiple sites, Small bowel obstruction, Abdominal pain Patient Disposition: Admitted As Inpatient Discharge Instructions Interventions: ED Discharge Assessment Last Done: 02/02/21 21:25 Discharge Problem: Abdominal pain Qualifiers: Abdominal location: unspecified location Qualified Code(s): R10.9 - Unspecified abdominal pain
[2021-02-02 17:10] LABS: Basophils # (auto) 0.03 K/uL (0-0.2); Basophils % (auto) 0.5 %; Eosinophils # (auto) 0.03 K/uL (0-0.5); Eosinophils % (auto) 0.5 %; Hematocrit (blood only) 31.4 % (37-47); Hemoglobin 10.3 g/dL (12.0-16.0); Immature Granulocytes # (auto) 0.01 K/uL (0.00-0.02); Immature Granulocytes % (auto) 0.2 %; Lymphocytes # (auto) 1.02 K/uL (1.2-3.4); Lymphocytes % (auto) 16.3 %; Mean Corpuscular Hemoglobin 28.7 pg (25-34); Mean Corpuscular Hgb Conc 32.8 g/dL (32-36); Mean Corpuscular Volume 87.5 fL (80-100); Mean Platelet Volume 8.7 fL (7.4-10.4); Monocytes # (auto) 0.46 K/uL (0.11-0.59); Monocytes % (auto) 7.4 %; Neutrophils % (auto) 75.1 %; Platelet Count 518 K/uL (130-400); RDW Coefficient of Variation 14.8 % (11.5-14.5); RDW Standard Deviation 47.5 fL (36.4-46.3); Red Blood Count 3.59 M/uL (4.2-5.4); White Blood Count 6.25 K/uL (4.8-10.8)
[2021-02-02 17:22] LABS: iSTAT Creatinine 1.3 mg/dl (0.6-1.3); iSTAT Hemoglobin 10.5 g/dl (12.0-16.0); iSTAT Ionized Calcium 1.1 mmol/l (1.12-1.32)
[2021-02-02 17:28] LABS: Albumin Level 2.5 gm/dl (3.4-5.0); BUN Creatinine Ratio 16.5 (10-20); Calcium 8.8 mg/dl (8.5-10.1); Creatinine Clr Calc Pharmacy 28.2 ml/min; Est GFR (African American) 50.4 ml/min; Est GFR (Non-African American) 43.5 ml/min
[2021-02-02 17:31] LABS: Albumin Globulin Ratio 0.4 (0.9-2); Bilirubin,Total 0.4 mg/dl (0.2-1); Globulin 5.6 gm/dl (2.5-4.0); Total Protein 8.1 gm/dl (6.4-8.2)
[2021-02-02] MEDS ORDERED: SUCRALFATE 1 GM TAB PO STA (18:12)
[2021-02-02] MEDS ORDERED: FAMOTIDINE 20 MG in SYRINGE 3 ML IV STA (18:12)
[2021-02-02] MEDS ORDERED: OPTIRAY 300 100mL IV ONE (18:14)
[2021-02-02] MEDS ORDERED: FAMOTIDINE 20MG/5ML IV PUSH IV ONE (18:34)
--- NOTE | 2021-02-02 18:55 | CT Scan Report ---
ABDOMEN AND PELVIS CT WITH IV CONTRAST CT DOSE: 445.31 mGycm HISTORY: Acute left-sided abdominal pain Pt c/o left sided abd pain TECHNIQUE: Multiaxial CT images of the abdomen and pelvis were performed following the IV administrat ion of 89 cc of Optiray, A dose lowering technique was utilized adhering to the principles of ALARA. COMPARISON STUDY: CT abdomen and pelvis 12/08/2020 FINDINGS: Small left and trace right pleural effusions. Chronic interstitial lung disease redemonstra susanne. The imaged inferior cardiac chambers are unremarkable. No pneumatosis or pneumoperitoneum. Unrem arkable spleen and adrenal glands. Mildly distended gallbladder is unchanged mild wall thickening. Un changed prominence of the extrahepatic biliary tree with the common bile duct measuring up to 8 mm. M ild generalized pancreatic atrophy. There are a few probable cyst of the right hepatic lobe redemonst rated measuring up to 6 mm. Patency of the hepatic and portal veins. The hepatic dome is not imaged i n its entirety. Mildly atrophic left kidney. There are a few subcentimeter right-sided renal hypodensities suggestive of probable cysts. No hydronephrosis. Unremarkable urinary bladder and uterus. Extensive calcified p laque of the abdominal aorta without aneurysm. Chronic occlusion of the right common iliac artery. Re constitution of flow within the internal and external iliac arteries. No adenopathy. The appendix is fluid-filled and measures 7 mm, similar to comparison. No associated inflammation. Po stoperative changes of the bowel redemonstrated which includes prior left colon resection with right lower quadrant colostomy. Numerous small bowel anastomoses. There is a multilocular septated hypodens e mass/fluid collection within the abdominal left lower quadrant measuring 10.3 x 7.6 x 14 cm, previo usly measured at 9.3 x 7.3 x 14 cm and again noted to involve the small bowel anastomosis. There is d iscontinuity of the bowel wall at the anastomosis suggestive of a contained perforation with invasion /extension into the left psoas and iliacus musculature. A fistulous tract is again noted extending wi th the adjacent sigmoid colon. This involves multiple loops of adjacent small bowel. Dilated loops of small bowel central abdomen with air-fluid levels. There is focal wall thickening of the small bowel with transition point upstream to the anastomosis and the abdominal left lower quadrant on image 208 series 3. Hypodense lesions/flexion of the left abdominal wall measures 1.9 x 1.4 x 2.8 cm and is co ntiguous with a subcutaneous scar. This appears similar to comparison. Unremarkable soft tissues. Demineralized appearance of the bones. Unchanged numerous compression defo rmities of the thoracolumbar spine. IMPRESSION: 1. Dilated air and fluid-filled loops of small bowel within the central abdomen with focal wall thick ening and transition point within the abdominal left lower quadrant upstream to the small bowel anast omosis is suggestive of small bowel obstruction. 2. Complex multilocular septated hypodense mass/fluid collection within the abdominal left lower quad rant involving the small bowel anastomosis with invasion into the left psoas and iliacus muscles appe ars similar to comparison measuring up to 14 cm. 3. 2.8 cm lesion/collection of the left abdominal wall also appears similar to comparison and may ref lect a complex seroma. 4. Unchanged gallbladder distention with wall thickening. 5. Small left and trace right pleural effusions. 6. Additional findings as above. ACT 112: Negative or not required by law. The above report was generated using voice recognition software. It may contain grammatical, syntax o r spelling errors. Electronically signed by: David Lovett M.D. 02/02/2021 6:53 PM
[2021-02-02 19:06] LABS: Appearance Urine Clear (Clear); Bilirubin Urine Negative (Negative); Blood Urine Negative (Negative); Color Urine Yellow; Glucose Urine UA Negative (Negative); Ketones Urine Negative (Negative); Leukocyte Esterase Urine Negative (Negative); Nitrite Urine Negative (Negative); Protein Urine Negative (Negative); Specific Gravity Urine 1.011 (1.000-1.030); Urobilinogen Urine Negative (Negative)
--- NOTE | 2021-02-02 19:59 | Surgery Consultation ---
Date of Consultation February 02, 2021 Assessment & Plan (1) Small bowel obstruction: Patient is being admitted to the hospital in the hospital service. We will proceed as follows: Provide analgesics Provide antiemetics Maintain the patient on n.p.o. status Provide hydration with IV fluid I did discuss with the patient the possibility of placing an NG tube for decompression. At the present time she does not wish to have this modality instituted. I did discuss with her that if she has worsening abdominal pain or continued nausea vomiting this may be necessary. During my interview the patient she did not have any episodes of retching, nausea, or vomiting and her abdominal pain seemed to be well controlled. In addition her abdomen was not distended so I told her we could probably hold on this at the present time but if her clinical situation deteriorates this will be necessary The patient's complex surgical medical history we have limited surgical options but will continue to follow along with the patient is hospitalized History of Present Illness Reason for Consultation: Abdominal pain, nausea and vomiting History of Present Illness This is an 89-year-old female patient who is well-known to Dr. Lomax. Patient presented to [facility] emergency department secondary to proximally 12 hours of nausea vomiting and some abdominal pain that is located mostly in the left upper quadrant. Patient denies any modifying factors and feels as though her appetite is normal. She does have a colostomy which she says has been working appropriately. As of her symptomatology and complex medical history she did present to the emergency department for further evaluation Stated previously the patient is well-known Dr. Lomax. The patient has a very complex surgical history where she has had multiple abdominal surgeries which date back to 2017. That time she had a history of colon cancer with Dr. Lomax performed a partial colectomy with primary anastomosis. The patient developed an intra-abdominal abscess requiring additional surgery and colostomy formation. On surveillance colonoscopies the patient was found to have some abnormalities of the remaining colon this required an exploratory laparotomy with additional colon resection surgery in 2019. Due to her history of colon cancer the patient has received chemotherapy which she has completed. She was seen by the surgical service at [facility] in the emergency department on December 08, 2020 secondary to abdominal pain. During that visit the patient was noted to have a complex fluid collection in the left pelvis. That time the patient was ultimately transferred to [facility] for interventional radiology drainage. Cording to the patient and her daughter she did have this drained and she had percutaneous drains in place for several days and was ultimately discharged home on antibiotics. Since this admission to [facility] the patient has had some ongoing abdominal pain but has not had any nausea or vomiting until January 22 of this year at which time she was seen in the emergency department. During that visit in the emergency department the patient was treated symptomatically was able to be discharged home. Today in the emergency department the patient did have labs and imaging which I dependently reviewed. She had a CBC where her white blood cell count was not elevated at 6.25. Her hemoglobin hematocrit were 10.3 and 31.4 respectively. Her platelet count was 518,000. Mr. Profile showed her sodium was 131 potassium was 4.0. BUN had a slight elevation in 19 but her creatinine was normal at 1.1. Urinalysis was not indicative of infection. A Covid test has been performed and is negative. Patient did have a CT scan of the abdomen that showed dilated air and fluid-filled loops of small bowel in the central abdomen raising concern for small bowel obstruction. At the time of my interview the patient was resting comfortably in bed in no distress. Allergies Allergy/AdvReac Type Severity Reaction Status Date / Time metoprolol Allergy Severe Anaphylaxis Verified 02/02/21 16:49 erythromycin base Allergy Unknown PT UNSURE Verified 02/02/21 16:15 nifedipine Allergy Unknown EXACERBATION Verified 02/02/21 16:15 INTERSTITIAL CYCSTITIS nitrofurantoin Allergy Unknown RASH Verified 02/02/21 16:15 quinine Allergy Unknown PT UNSURE Verified 02/02/21 16:15 Sulfa (Sulfonamide Allergy Unknown RASH Verified 02/02/21 16:15 Antibiotics) azithromycin [From Zithromax] AdvReac Intermediate Rash Verified 02/02/21 16:15 bexarotene AdvReac Intermediate n/v Verified 02/02/21 16:15 Beta-Blockers AdvReac Mild "Secondary Verified 02/02/21 16:15 (Beta-Adrenergic Bloc AVB" ciprofloxacin AdvReac Unknown GI SYMPTOMS Verified 02/02/21 16:15 hydralazine AdvReac Unknown dysuria Verified 02/02/21 16:15 hydrochlorothiazide AdvReac Unknown Rash Verified 02/02/21 16:15 hydrocodone AdvReac Unknown GI UPSET Verified 02/02/21 16:15 lisinopril AdvReac Unknown "INTOLERANCE" Verified 02/02/21 16:[address] COLON losartan AdvReac Unknown JITTERY,SHA Verified 02/02/21 16:15 DOHERTY meperidine AdvReac Unknown GI UPSET Verified 02/02/21 16:15 methenamine AdvReac Unknown HX STOMACH Verified 02/02/21 16:15 PAIN- SEE NOTES metronidazole AdvReac Unknown STOMACH Verified 02/02/21 16:15 PAIN Phenothiazines AdvReac Unknown SHAKEY Verified 02/02/21 16:15 prochlorperazine AdvReac Unknown "BODY Verified 02/02/21 16:15 SHAKES" Quinolones AdvReac Unknown CIPRO- Verified 02/02/21 16:15 NAUSEA, NERVOUS, CHILLS simvastatin AdvReac Unknown STOMACH Verified 02/02/21 16:15 PAIN spironolactone AdvReac Unknown RECTAL Verified 02/02/21 16:15 PRESSURE, PAIN terazosin AdvReac Unknown LIGHTHEADEDNESS Verified 02/02/21 16:15 AND NAUSEA valdecoxib AdvReac Unknown GI SYMPTOMS Verified 02/02/21 16:15 clindamycin AdvReac Unknown Verified 02/02/21 16:15 Quinidine-Quinine Analogues AdvReac Unknown Verified 02/02/21 16:15 ([facility] Home Medications Medication Instructions Recorded Confirmed Type Alphagan P 1 drashley OPB BID 10/30/19 02/02/21 History amlodipine 10 mg tablet 10 mg PO QAM #90 tab 06/01/20 02/02/21 Rx pentosan polysulfate sodium 100 mg 100 mg PO BID 90 Days #180 cap 06/22/20 02/02/21 Rx capsule gabapentin 300 mg capsule 300 mg PO TID #270 cap 07/27/20 02/02/21 Rx azelastine 137 mcg (0.1 %) nasal 1 spray INTNAS BID #30 ml 08/22/20 02/02/21 Rx spray aerosol apixaban 5 mg tablet 5 mg PO BID 90 Days #180 tab 09/05/20 02/02/21 Rx cholecalciferol (vitamin D3) 125 mcg PO DAILY 09/28/20 02/02/21 History tramadol 50 mg tablet 50 mg PO TID PRN 30 Days #90 tab 10/19/20 02/02/21 Rx omeprazole 20 mg tablet,delayed 20 mg PO QAM #30 tab 10/26/20 02/02/21 Rx release clobetasol 0.05 % topical ointment 1 applic TOP 2XWK #30 gm 11/21/20 02/02/21 Rx acetaminophen 325 mg capsule 325 mg PO QID PRN 12/28/20 02/02/21 History clonidine HCl 0.1 mg tablet 0.1 mg PO BID 12/28/20 02/02/21 History oxycodone 5 mg tablet 5 mg PO Q6H PRN 12/28/20 02/02/21 History sennosides 8.6 mg-docusate sodium 1 tab-cap PO DAILY 12/28/20 02/02/21 History 50 mg tablet benzonatate 200 mg capsule 200 mg PO HS PRN #30 cap 01/16/21 02/02/21 Rx fentanyl 12 mcg/hr transdermal 1 patch TRANSDERMAL Q72H #10 ea 01/31/21 02/02/21 Rx patch ondansetron HCl 4 mg tablet 4 mg PO Q4H #30 tab 01/31/21 02/02/21 Rx Patient History Medical History Acute thoracic back pain Back pain Cardiac murmur No significant valve disease per 2017 echo Chronic diastolic CHF (congestive heart failure) Folate deficiency Gram negative sepsis History of colon cancer Hypertension Intra-abdominal fluid collection MRSA nasal colonization SOB (shortness of breath) Vertigo Surgical History H/O exploratory laparotomy 2016. status post open transverse colectomy with primary anastomosis, omentectomy, excision or biopsy of left liver lesion performed by Dr. Lomax 12/13/2016. Unfortunately postoperatively she developed intra- abdominal abscesses requiring re-exploration of her abdomen, washout of the abscesses, takedown of the primary anastomosis and creation of a colostomy and mucous fistula. History of bilateral cataract extraction History of bowel resection 2016 for colon cancer--colostomy History of cervical polypectomy History of colonoscopy History of exploratory laparotomy 11/27/18 [facility] - left hemicolectomy and small bowel resection with Dr. Lomax. Grade 1 view with MAC 3 and 7.0 ETT, EZ mask. History of temporal artery biopsy History of tooth extraction all teeth removed Hx of cervical polypectomy Family History Daughter Family history of breast cancer Father , age 93, "old age" No problems noted. 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 Other Information That Helps Us Care for You: No other: 7 children Feels Safe at Home: Yes Safety Concerns: Feels Safe At This Time Seatbelt Use: always Sunscreen Use: No Assistive Devices: Cane Review of Systems Constitutional: no fever and no chills Eyes: no diplopia Ear, Nose, Mouth, Throat: no ear pain Respiratory: no cough and no dyspnea Cardiovascular: no chest pain Gastrointestinal: + nausea and + vomiting; no abdominal pain Genitourinary: no dysuria Musculoskeletal: no back pain Integumentary: no rash Neurologic: no localized weakness Physical Exam Constitutional: no acute distress Eyes: Wears glasses ENMT: Ears: no hearing impairment Neck: trachea midline Respiratory: normal respiratory effort, lungs clear to auscultation Cardiovascular: Rate/Rhythm: regular rate and regular rhythm Gastrointestinal (Abdomen): Patient's abdomen is soft nondistended. There is some slight pain with palpation left upper quadrant. The patient's colostomy is located on the right side of her abdomen. The mucosa of the colostomy is pink and viable. There is brown stool noted in the collection bag. There is no rebound or tenderness noted on physical exam. Musculoskeletal: No calf tenderness Skin: no rashes, warm and dry Neurologic: moves all extremities Psychiatric: A+Ox3, euthymic affect Results & Data ([facility]) Vital Signs (Past 12 Hours) Vital Signs Temp Pulse Resp BP Pulse Ox 02/02/21 19:00 83 19 02/02/21 18:32 96 H 23 171/69 H 02/02/21 17:30 92 H 28 H 02/02/21 17:02 84 25 H 169/62 H 02/02/21 17:00 86 26 H 02/02/21 16:30 96 H 29 H 02/02/21 16:04 87 24 02/02/21 15:58 85 23 182/67 H 02/02/21 15:25 36.8 C 91 H 20 182/67 H 98 PG Care Time/CCT Total # of Minutes Spent Total Time Spent with Patient: Total time spent is greater than 50% in coordination of care (as documented) at patient's floor/unit and/or counseling patient: Coding Level of Care Code 19209 Inpt Consult Level 5 Diagnoses Small bowel obstruction K56.609
--- NOTE | 2021-02-02 20:13 | History & Physical Report ---
Date of Service February 02, 2021 Assessment & Plan (1) Small bowel obstruction: History of metastatic colorectal carcinoma with recent intra-abdominal abscess and drainage by intervention radiology Rosita who presents with recurrent small bowel obstruction. Surgery is seen the patient in the emergency room and deemed to be a nonsurgical candidate. Reportedly the patient has already been talking to Dr. Karissa Mauricio as an outpatient but is not transition for me to hospice care I attempted to call the family shortly after I saw her in the emergency department and received no answer CT abdomen pelvis 02/02/2021 IMPRESSION: 1. Dilated air and fluid-filled loops of small bowel within the central abdomen with focal wall thickening and transition point within the abdominal left lower quadrant upstream to the small bowel anastomosis is suggestive of small bowel obstruction. 2. Complex multilocular septated hypodense mass/fluid collection within the abdominal left lower quadrant involving the small bowel anastomosis with invasion into the left psoas and iliacus muscles appears similar to comparison measuring up to 14 cm. 3. 2.8 cm lesion/collection of the left abdominal wall also appears similar to comparison and may reflect a complex seroma. 4. Unchanged gallbladder distention with wall thickening. 5. Small left and trace right pleural effusions. Patient is small bowel obstruction in the ER there is a 14 cm spiculated mass near her small bowel which is likely the culprit. The patient refuses NG tube at this present time and surgery deemed her not a surgical candidate. Remaining the patient for symptom control and engagement with our inpatient palliative care team to likely transition to palliative care at this point time however she is not ready to make that call therefore we will initiate IV fluid pain control and also heart rate control if needed for her atrial fibrillation (2) Colon cancer metastasized to multiple sites: Complex multilocular septated hypodense mass/fluid collection within the abdominal left lower quadrant involving the small bowel anastomosis with invasion into the left psoas and iliacus muscles appears similar to comparison measuring up to 14 cm. (3) PAF (paroxysmal atrial fibrillation): Patient typically on apixaban she is not typically on any regular rate controlling medications at this time will use IV metoprolol on a monitored sett ing at this point time until we transition to more comfort care status (4) Prediabetes: History of Present Illness Primary Care Provider: Filiberto Pendleton MD 89-year-old female who presents emergency department complaining of abdominal pain. This pt has had multiple abdominal surgeries for colon cancer which date back to , including colostomy formation and most recently intra abdominal abscess drainage. Her primary surgeon here has been Dr Lomax The patient reports that she is having abdominal pain in the left lower quadrant that radiates into her back. The patient is on fentanyl and has taken oxycodone for the pain without relief. In addition the patient is also complaining of nausea and vomiting that has been ongoing for the past 3 days. She was sent in by home health nursing over concerns with the patient is dehydrated. She describes the pain as an aching sensation and nothing appears to make the pain better or worse. She reports she has had crackers to eat today but otherwise has been unable to keep anything else down Recently the pt presented to the ER here on December 08, 2020 secondary to abdominal pain. During that visit the patient was noted to have a complex fluid collection in the left pelvis. That time the patient was ultimately transferred to [facility] for interventional radiology drainage. Acording to the patient and her daughter she did have this drained and she had percutaneous drains in place for several days and was ultimately discharged home on antibiotics. Since this admission to [facility] the patient has had some ongoing abdominal pain but has not had any nausea or vomiting until January 22 when she represented to the ER and was treated and released Patient is small bowel obstruction in the ER there is a 14 cm spiculated mass near her small bowel which is likely the culprit. The patient refuses NG tube at this present time and surgery deemed her not a surgical candidate. Remaining the patient for symptom control and engagement with our inpatient palliative care team to likely transition to palliative care at this point time however she is not ready to make that call therefore we will initiate IV fluid pain control and also heart rate control if needed for her atrial fibrillation Allergies Allergy/AdvReac Type Severity Reaction Status Date / Time metoprolol Allergy Severe Anaphylaxis Verified 02/02/21 16:49 erythromycin base Allergy Unknown PT UNSURE Verified 02/02/21 16:15 nifedipine Allergy Unknown EXACERBATION Verified 02/02/21 16:15 INTERSTITIAL CYCSTITIS nitrofurantoin Allergy Unknown RASH Verified 02/02/21 16:15 quinine Allergy Unknown PT UNSURE Verified 02/02/21 16:15 Sulfa (Sulfonamide Allergy Unknown RASH Verified 02/02/21 16:15 Antibiotics) azithromycin [From Zithromax] AdvReac Intermediate Rash Verified 02/02/21 16:15 bexarotene AdvReac Intermediate n/v Verified 02/02/21 16:15 Beta-Blockers AdvReac Mild "Secondary Verified 02/02/21 16:15 (Beta-Adrenergic Bloc AVB" ciprofloxacin AdvReac Unknown GI SYMPTOMS Verified 02/02/21 16:15 hydralazine AdvReac Unknown dysuria Verified 02/02/21 16:15 hydrochlorothiazide AdvReac Unknown Rash Verified 02/02/21 16:15 hydrocodone AdvReac Unknown GI UPSET Verified 02/02/21 16:15 lisinopril AdvReac Unknown "INTOLERANCE" Verified 02/02/21 16:[address] PENDLETON losartan AdvReac Unknown JITTERY,SHA Verified 02/02/21 16:15 DOHERTY meperidine AdvReac Unknown GI UPSET Verified 02/02/21 16:15 methenamine AdvReac Unknown HX STOMACH Verified 02/02/21 16:15 PAIN- SEE NOTES metronidazole AdvReac Unknown STOMACH Verified 02/02/21 16:15 PAIN Phenothiazines AdvReac Unknown SHAKEY Verified 02/02/21 16:15 prochlorperazine AdvReac Unknown "BODY Verified 02/02/21 16:15 SHAKES" Quinolones AdvReac Unknown CIPRO- Verified 02/02/21 16:15 NAUSEA, NERVOUS, CHILLS simvastatin AdvReac Unknown STOMACH Verified 02/02/21 16:15 PAIN spironolactone AdvReac Unknown RECTAL Verified 02/02/21 16:15 PRESSURE, PAIN terazosin AdvReac Unknown LIGHTHEADEDNESS Verified 02/02/21 16:15 AND NAUSEA valdecoxib AdvReac Unknown GI SYMPTOMS Verified 02/02/21 16:15 clindamycin AdvReac Unknown Verified 02/02/21 16:15 Quinidine-Quinine Analogues AdvReac Unknown Verified 02/02/21 16:15 ([facility] Home Medications Medication Instructions Recorded Confirmed Type Alphagan P 1 drp OPB BID 10/30/19 02/02/21 History amlodipine 10 mg tablet 10 mg PO QAM #90 tab 06/01/20 02/02/21 Rx pentosan polysulfate sodium 100 mg 100 mg PO BID 90 Days #180 cap 06/22/20 02/02/21 Rx capsule gabapentin 300 mg capsule 300 mg PO TID #270 cap 07/27/20 02/02/21 Rx azelastine 137 mcg (0.1 %) nasal 1 spray INTNAS BID #30 ml 08/22/20 02/02/21 Rx spray aerosol apixaban 5 mg tablet 5 mg PO BID 90 Days #180 tab 09/05/20 02/02/21 Rx cholecalciferol (vitamin D3) 125 mcg PO DAILY 09/28/20 02/02/21 History tramadol 50 mg tablet 50 mg PO TID PRN 30 Days #90 tab 10/19/20 02/02/21 Rx omeprazole 20 mg tablet,delayed 20 mg PO QAM #30 tab 10/26/20 02/02/21 Rx release clobetasol 0.05 % topical ointment 1 applic TOP 2XWK #30 gm 11/21/20 02/02/21 Rx acetaminophen 325 mg capsule 325 mg PO QID PRN 12/28/20 02/02/21 History clonidine HCl 0.1 mg tablet 0.1 mg PO BID 12/28/20 02/02/21 History oxycodone 5 mg tablet 5 mg PO Q6H PRN 12/28/20 02/02/21 History sennosides 8.6 mg-docusate sodium 1 tab-cap PO DAILY 12/28/20 02/02/21 History 50 mg tablet benzonatate 200 mg capsule 200 mg PO HS PRN #30 cap 01/16/21 02/02/21 Rx fentanyl 12 mcg/hr transdermal 1 patch TRANSDERMAL Q72H #10 ea 01/31/21 02/02/21 Rx patch ondansetron HCl 4 mg tablet 4 mg PO Q4H #30 tab 01/31/21 02/02/21 Rx Past Med/Surg History Medical History (Updated 02/02/21 @ 20:01 by Brandon Winkler PA-C) Acute thoracic back pain Back pain Cardiac murmur No significant valve disease per 2017 echo Chronic diastolic CHF (congestive heart failure) Folate deficiency Gram negative sepsis History of colon cancer Hypertension Intra-abdominal fluid collection MRSA nasal colonization SOB (shortness of breath) Vertigo Surgical History H/O exploratory laparotomy 2016. status post open transverse colectomy with primary anastomosis, omentectomy, excision or biopsy of left liver lesion performed by Dr. Lomax 12/13/2016. Unfortunately postoperatively she developed intra- abdominal abscesses requiring re-exploration of her abdomen, washout of the abscesses, takedown of the primary anastomosis and creation of a colostomy and mucous fistula. History of bilateral cataract extraction History of bowel resection 2015 for colon cancer--colostomy History of cervical polypectomy History of colonoscopy History of exploratory laparotomy 11/27/18 [facility] - left hemicolectomy and small bowel resection with Dr. Lomax. Grade 1 view with MAC 3 and 7.0 ETT, EZ mask. History of temporal artery biopsy History of tooth extraction all teeth removed Hx of cervical polypectomy Family History Daughter Family history of breast cancer Father , age 93, "old age" No problems noted. 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 Feels Safe at Home: Yes Seatbelt Use: always Sunscreen Use: No Assistive Devices: Cane, Denture - Upper, Denture - Lower and Glasses Review of Systems Review of Systems: moderate distress and fatigue no headache, blurry or double vision no speech or swallowing issues no chest pain, pressure or palpitations no shortness of breath, cough or wheezes LLQ crampy abdominal pian , nausea & vomiting, colostomy with some stool in bag no dysuria, hematuria or frequency no focal joint pain or swelling moderate left sided back pain,no radicular pain no bruising, bleeding or rashes no focal signs of weakness or numbness or altered sensation no complaints of anxiety or depression.. Physical Exam Physical Exam: The patient appeared with reasonable pain control Vital signs as documented. Head exam is normocephalic atraumatic Neck is without JVD, thyromegaly, or carotid bruits. Lungs diminished at the bases Cardiac exam, tachycardic seems to be sinus tach although has a history of afib Abdominal exam reveals hyperactive bowel sounds, colostomy in RLQ, dull and tender Extremities are nonedematous and both pedal pulses are present Neurologic exam is alert and oriented, weakness but no focal loss Skin is without bruises or rashes Results & Data Results & Data ([facility]) Vital Signs (Past 12 Hours) Vital Signs Temp Pulse Resp BP Pulse Ox 02/02/21 19:00 83 19 02/02/21 18:32 96 H 23 171/69 H 02/02/21 17:30 92 H 28 H 02/02/21 17:02 84 25 H 169/62 H 02/02/21 17:00 86 26 H 02/02/21 16:30 96 H 29 H 02/02/21 16:04 87 24 02/02/21 15:58 85 23 182/67 H 02/02/21 15:25 98.2 F 91 H 20 182/67 H 98 PG Care Time/CCT Total # of Minutes Spent Total Time Spent with Patient: Total time spent is greater than 50% in coordination of care (as documented) at patient's floor/unit and/or counseling patient: Coding Level of Care Code 89858 Initial Inpt Care Lvl 3 Diagnoses Small bowel obstruction K56.609 Colon cancer metastasized to multiple sites C18.9 PAF (paroxysmal atrial fibrillation) I48.0 Prediabetes R73.03
[2021-02-02] MEDS ORDERED: dilTIAZem HCl 5 MG/ML 5 ML VIAL IV PRN (21:55)
[2021-02-02] MEDS ORDERED: PROMETHAZINE HCL 12.5 MG in SODIUM CHLORIDE 0.9% 50 ML IV PRN (21:55)
[2021-02-02] MEDS ORDERED: dilTIAZem HCL 30 MG TAB PO ONE (21:55)
[2021-02-02] MEDS: HYDROmorphone INJ 0.5 MG/0.5 ML SYR IV PRN (22:23)
[2021-02-02] MEDS: BRIMONIDINE TARTRATE-P 0.15% 5 ML BTL OP SCH (22:29)
[2021-02-02] MEDS: NSS + 20MEQ KCL 20 MEQ/1,000 ML BAG IV SCH (22:29)
[2021-02-03] MEDS ORDERED: CHECK fentaNYL PATCH PLACEMENT SCH
[2021-02-03] MEDS: ONDANSETRON INJ 2 MG/ML 2 ML VIAL IV PRN (04:33)
[2021-02-03] MEDS: NSS + 20MEQ KCL 20 MEQ/1,000 ML BAG IV SCH ×3 (06:17→22:59)
[2021-02-03 06:25] LABS: BUN Creatinine Ratio 15.4 (10-20); Calcium 8.4 mg/dl (8.5-10.1); Creatinine Clr Calc Pharmacy 32.9 ml/min; Est GFR (African American) 60.8 ml/min; Est GFR (Non-African American) 52.4 ml/min; Magnesium 1.7 mg/dl (1.8-2.4); Potassium 4.3 mmol/L (3.5-5.1)
[2021-02-03] MEDS: CHECK fentaNYL PATCH PLACEMENT SCH ×3 (08:44→23:53)
[2021-02-03] MEDS: BRIMONIDINE TARTRATE-P 0.15% 5 ML BTL OP SCH ×2 (08:44→20:24)
[2021-02-03] MEDS: HYDROmorphone INJ 0.5 MG/0.5 ML SYR IV PRN ×3 (08:45→21:27)
--- NOTE | 2021-02-03 08:47 | Surgery Progress Note ---
Date of Service February 03, 2021 Assessment & Plan (1) Small bowel obstruction: obstructive symptoms improved, recurrent fluid collection/fistula LLQ will check KUB, may start back on clears agree with palliative consult seen with Dr. Lomax who will discuss with family as above. feeling better this AM. if KUB improved can try clears pt not a surgical candidate. I know the family well/will call them to discuss. agree with palliative care consult. Admission and Anticipated Discharge Date Admission Date: February 02, 2021 Subjective 1 episode nausea this morning but having increasing ostomy output, no abdominal pain Physical Exam Gastrointestinal (Abdomen): Inspection/Auscultation: abdomen not distended Percussion/Palpation: abdomen soft; abdomen nontender + ostomy output Results & Data ([facility]) Vital Signs (Past 12 Hours) Vital Signs Temp Pulse Pulse Pulse Resp BP BP 02/03/21 08:00 37.3 C 85 18 156/59 H 02/03/21 07:26 88 02/03/21 03:42 37 C 87 20 152/53 H 02/03/21 00:08 91 H 02/02/21 22:25 36.9 C 120 H 18 141/65 H 02/02/21 22:00 112 H 02/02/21 21:15 95 H 20 144/82 H 02/02/21 21:00 87 19 Pulse Ox 02/03/21 08:00 98 02/03/21 07:26 02/03/21 03:42 98 02/03/21 00:08 02/02/21 22:25 91 02/02/21 22:00 02/02/21 21:15 94 02/02/21 21:00 PG Care Time/CCT Total # of Minutes Spent Total Time Spent with Patient: Total time spent is greater than 50% in coordination of care (as documented) at patient's floor/unit and/or counseling patient: Coding Level of Care Code 61094 Subseq Hosp Care Lvl 3 Diagnoses Small bowel obstruction K56.609
[2021-02-03] MEDS ORDERED: MAGNESIUM SULFATE / D5W 1 GM/100 ML BAG IV ONE (10:30)
--- NOTE | 2021-02-03 11:35 | Electrocardiogram Report ---
Test Reason : Blood Pressure : / mmHG Vent. Rate : 088 BPM Atrial Rate : 088 BPM P-R Int : 162 ms QRS Dur : 070 ms QT Int : 366 ms P-R-T Axes : 004 -03 017 degrees QTc Int : 442 ms Poor data quality, interpretation may be adversely affected Normal sinus rhythm Low voltage QRS Abnormal ECG When compared with ECG of 08-DEC-2020 01:11, Nonspecific T wave abnormality now evident in Inferior leads Confirmed by Filiberto Nelson ([id number]) on 02/03/2021 11:35:07 AM Referred By: Seth Pendleton Confirmed By:Lucas Nelson
--- NOTE | 2021-02-03 12:05 | XRay Report ---
KUB HISTORY: Follow up study in a patient with small bowel obstruction SBO COMPARISON: CT abdomen pelvis 02/02/2021 FINDINGS: There is persistent small bowel distention of the central abdomen with small bowel loops me asuring up to 4.7 cm transversely. Surgical suture material an surgical clips of the abdomen. Right l ower quadrant colostomy. No renal calculi. No ureteral calculi. No pneumoperitoneum or pneumatosis. D emineralized appearance the bones with degenerative changes of the spine, pelvis and hips. No fractur e. Chronic interstitial lung disease. IMPRESSION: Persistent small bowel obstruction without pneumoperitoneum. ACT 112: Negative or not required by law. The above report was generated using voice recognition software. It may contain grammatical, syntax o r spelling errors. Electronically signed by: David Lovett M.D. 02/03/2021 12:04 PM
--- NOTE | 2021-02-03 14:28 | Palliative Care Consultation ---
Date of Consultation February 03, 2021 Assessment & Plan (1) Nausea: Refractory to zofran and phenergan. She has declined NG tube. Will try low dose zyprexa. (2) Abdominal pain: Recently started on fentanyl patch. She has been getting relief with prn hydromorphone. Abdominal location: unspecified location Qualified Code(s): R10.9 - Unspecified abdominal pain (3) Anxiety: (4) Palliative care encounter: I have discussed goals of care with Kadie in the office and she has said that her primary goals are to be comfortable and remain at home. With that in mind, we discussed hospice care but she does not feel that she is ready to do that. I did explain that having hospice care does not mean that we are giving up on her or that she is imminently dying. She gets anxious when discussing this and has declined further discussion at this point. She tells me that she just wants to focus on getting better. I asked her what it means to her to get better and she tells me that means having pain and nausea controlled and being able to get around at home. Palliative care will follow. (5) Small bowel obstruction: (6) Colon cancer metastasized to multiple sites: History of Present Illness Requesting Physician: Dr. Basurto Attending Physician: Pierre Heard History of Present Illness 89 yo lady with colon cancer originally diagnosed in 2017. She has had a complicated course with resection and and subsequent surgery with colostomy with second resection for recurrence in 2019. Most recently she has been seen at [facility] for drainage of fluid filled mass in her left pelvis. She had been doing ok at home and was seen by palliative care as an outpatient for symptom management and goals of care. She has had abdominal pain, severe at times as well as nausea and progressive weakness. She was admitted yesterday with refractory nausea and vomiting for three days and found to have SBO. She has declined NG tube and tells me that she feels a little better today. She is tolerating sips of water and complains of feeling hungry and wanting to eat. She has nausea that was not relieved with zofran or phenergan. She has also had abdominal pain that was relieved with IV hydromorphone. She was just started on a fentanyl patch for her abdominal pain prior to admission and had been using oxycodone prn. Allergies Allergy/AdvReac Type Severity Reaction Status Date / Time metoprolol Allergy Severe Anaphylaxis Verified 02/02/21 16:49 erythromycin base Allergy Unknown PT UNSURE Verified 02/02/21 16:15 nifedipine Allergy Unknown EXACERBATION Verified 02/02/21 16:15 INTERSTITIAL CYCSTITIS nitrofurantoin Allergy Unknown RASH Verified 02/02/21 16:15 quinine Allergy Unknown PT UNSURE Verified 02/02/21 16:15 Sulfa (Sulfonamide Allergy Unknown RASH Verified 02/02/21 16:15 Antibiotics) azithromycin [From Zithromax] AdvReac Intermediate Rash Verified 02/02/21 16:15 [email or web address] AdvReac Intermediate n/v Verified 02/02/21 16:15 Beta-Blockers AdvReac Mild "Secondary Verified 02/02/21 16:15 (Beta-Adrenergic Bloc AVB" ciprofloxacin AdvReac Unknown GI SYMPTOMS Verified 02/02/21 16:15 hydralazine AdvReac Unknown dysuria Verified 02/02/21 16:15 hydrochlorothiazide AdvReac Unknown Rash Verified 02/02/21 16:15 hydrocodone AdvReac Unknown GI UPSET Verified 02/02/21 16:15 lisinopril AdvReac Unknown "INTOLERANCE" Verified 02/02/21 16:[address] COLON losartan AdvReac Unknown JITTERY,SHA Verified 02/02/21 16:15 DOHERTY meperidine AdvReac Unknown GI UPSET Verified 02/02/21 16:15 methenamine AdvReac Unknown HX STOMACH Verified 02/02/21 16:15 PAIN- SEE NOTES metronidazole AdvReac Unknown STOMACH Verified 02/02/21 16:15 PAIN Phenothiazines AdvReac Unknown SHAKEY Verified 02/02/21 16:15 prochlorperazine AdvReac Unknown "BODY Verified 02/02/21 16:15 SHAKES" Quinolones AdvReac Unknown CIPRO- Verified 02/02/21 16:15 NAUSEA, NERVOUS, CHILLS simvastatin AdvReac Unknown STOMACH Verified 02/02/21 16:15 PAIN spironolactone AdvReac Unknown RECTAL Verified 02/02/21 16:15 PRESSURE, PAIN terazosin AdvReac Unknown LIGHTHEADEDNESS Verified 02/02/21 16:15 AND NAUSEA valdecoxib AdvReac Unknown GI SYMPTOMS Verified 02/02/21 16:15 clindamycin AdvReac Unknown Verified 02/02/21 16:15 Quinidine-Quinine Analogues AdvReac Unknown Verified 02/02/21 16:15 ([facility] Home Medications Medication Instructions Recorded Confirmed Type Alphagan P 1 drp OPB BID 10/30/19 02/02/21 History amlodipine 10 mg tablet 10 mg PO QAM #90 tab 06/01/20 02/02/21 Rx pentosan polysulfate sodium 100 mg 100 mg PO BID 90 Days #180 cap 06/22/20 02/02/21 Rx capsule gabapentin 300 mg capsule 300 mg PO TID #270 cap 07/27/20 02/02/21 Rx azelastine 137 mcg (0.1 %) nasal 1 spray INTNAS BID #30 ml 08/22/20 02/02/21 Rx spray aerosol apixaban 5 mg tablet 5 mg PO BID 90 Days #180 tab 09/05/20 02/02/21 Rx cholecalciferol (vitamin D3) 125 mcg PO DAILY 09/28/20 02/02/21 History tramadol 50 mg tablet 50 mg PO TID PRN 30 Days #90 tab 10/19/20 02/02/21 Rx omeprazole 20 mg tablet,delayed 20 mg PO QAM #30 tab 10/26/20 02/02/21 Rx release clobetasol 0.05 % topical ointment 1 applic TOP 2XWK #30 gm 11/21/20 02/02/21 Rx acetaminophen 325 mg capsule 325 mg PO QID PRN 12/28/20 02/02/21 History clonidine HCl 0.1 mg tablet 0.1 mg PO BID 12/28/20 02/02/21 History oxycodone 5 mg tablet 5 mg PO Q6H PRN 12/28/20 02/02/21 History sennosides 8.6 mg-docusate sodium 1 tab-cap PO DAILY 12/28/20 02/02/21 History 50 mg tablet benzonatate 200 mg capsule 200 mg PO HS PRN #30 cap 01/16/21 02/02/21 Rx fentanyl 12 mcg/hr transdermal 1 patch TRANSDERMAL Q72H #10 ea 01/31/21 02/02/21 Rx patch ondansetron HCl 4 mg tablet 4 mg PO Q4H #30 tab 01/31/21 02/02/21 Rx Patient History Medical History Acute thoracic back pain Back pain Cardiac murmur No significant valve disease per 2017 echo Chronic diastolic CHF (congestive heart failure) Folate deficiency Gram negative sepsis History of colon cancer Hypertension Intra-abdominal fluid collection MRSA nasal colonization SOB (shortness of breath) Vertigo Surgical History H/O exploratory laparotomy 2016. status post open transverse colectomy with primary anastomosis, omentectomy, excision or biopsy of left liver lesion performed by Dr. Lomax 12/13/2016. Unfortunately postoperatively she developed intra- abdominal abscesses requiring re-exploration of her abdomen, washout of the abscesses, takedown of the primary anastomosis and creation of a colostomy and mucous fistula. History of bilateral cataract extraction History of bowel resection 2015 for colon cancer--colostomy History of cervical polypectomy History of colonoscopy History of exploratory laparotomy 11/27/18 [facility] - left hemicolectomy and small bowel resection with Dr. Lomax. Grade 1 view with MAC 3 and 7.0 ETT, EZ mask. History of temporal artery biopsy History of tooth extraction all teeth removed Hx of cervical polypectomy Family History Daughter Family history of breast cancer Father , age 93, "old age" No problems noted. 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 Other Information That Helps Us Care for You: No other: 7 children Feels Safe at Home: Yes Safety Concerns: Feels Safe At This Time Seatbelt Use: always Sunscreen Use: No Assistive Devices: Walker Review of Systems Review of Systems: [place] Symptom Assessment Scale Pain 1/3 Dyspnea 0/3 Anxiety 1/3 Nausea 2/3 Fatigue 2/3 Drowsiness 1/3 Palliative Performance Score 30% Physical Exam Constitutional: no acute distress ENMT: Mouth: + dry oral mucous membranes Respiratory: normal respiratory effort; no labored breathing Neurologic: awake; no focal motor deficits and not confused Results & Data ([facility]) Vital Signs (Past 12 Hours) Vital Signs Temp Pulse Pulse Resp BP Pulse Ox 02/03/21 12:10 98.4 F 88 22 151/64 H 98 02/03/21 08:00 99.1 F 85 18 156/59 H 98 02/03/21 07:26 88 02/03/21 03:42 98.6 F 87 20 152/53 H 98 PG Care Time/CCT Total # of Minutes Spent Total Time Spent with Patient: Total time spent is greater than 50% in coordination of care (as documented) at patient's floor/unit and/or counseling patient: Total time spent 65 minutes with more than 50% of time spent on goals of care, symptom management, family update Coding Level of Care Code 72172 Inpt Consult Level 3 Diagnoses Nausea R11.0 Abdominal pain R10.9 Abdominal location: unspecified location Anxiety F41.9 Palliative care encounter Z51.5 Small bowel obstruction K56.609 Colon cancer metastasized to multiple sites C18.9
--- NOTE | 2021-02-03 18:12 | Hospitalist Progress Note ---
Date of Service February 03, 2021 Assessment & Plan (1) Small bowel obstruction: 2nd to "complex multilocular septated hypodense mass/fluid collection within the abdominal left lower quadrant involving the small bowel anastomosis with invasion into the left psoas and iliacus muscles" as per CT at admission. She was at [facility] in December. This fluid collection was drained by IR. It was deemed NOT infectious. Malignant cells were identified; thus, the mass is her colon ca. She remains very uncomfortable with pain & nausea. May need NG tube. Keep NPO; IVF. Appreciate gen surg consult. Without question she is not a surgical candidate. Best option is palliation but patient seemingly not ready for such? See Dr Mauricio's consult note from today. Really appreciate her assistance. labs in am. (2) Colon cancer metastasized to multiple sites: Large, complex multilocular septated hypodense mass/fluid collection within the abdominal left lower quadrant involving the small bowel anastomosis with invasion into the left psoas and iliacus muscles (14cm in size). Cont fentanyl patch + IV dilaudid prn. Adjust as needed. (3) PAF (paroxysmal atrial fibrillation): Eliquis on hold. If rate control is needed - start IV cardizem. Allergic to beta blockers. (4) Prediabetes: (5) Urinary frequency: place hilario ua not suggestive of UTI (6) Chronic kidney disease, stage IV (severe): baseline CrCl upper 20s daughter updated at bedside focus on pain control today and comfort palliation/hospice would be best when patient is ready Admission and Anticipated Discharge Date Admission Date: February 02, 2021 Subjective daughter at bedside patient VERY uncomfortable, c/o severe central and right-sided abdominal pain ongoing nausea no emesis passing flatus and stool via ostomy no dyspnea also c/o urinary frequency initially was against a hilario, then ultimately agreeable Review of Systems Respiratory: no cough and no dyspnea Cardiovascular: no chest pain Gastrointestinal: as per Subjective / HPI, + abdominal pain and + nausea Physical Exam Constitutional: + acute distress (very uncomfortable, in pain, moaning ); no altered mental status ENMT: Mouth: + dry oral mucous membranes Respiratory: normal respiratory effort, lungs clear to auscultation Cardiovascular: Rate/Rhythm: regular rhythm and + tachycardic Heart Sounds: normal S1 and normal S2 Vessels: posterior tibial pulses present and dorsalis pedis pulses present; no JVD Extremities: no edema Gastrointestinal (Abdomen): Inspection/Auscultation: + abdomen distended and + hypoactive bowel sounds Percussion/Palpation: + abdomen tender (diffuse, especially central ); no guarding and no hepatosplenomegaly ostomy in place right abdomen, stool present (small amount - liquid) in bag Skin: + pallor Psychiatric: Orientation: alert, oriented to person and oriented to place Results & Data Results & Data ([facility]) Vital Signs (Past 12 Hours) Vital Signs Temp Pulse Pulse Resp BP Pulse Ox 02/03/21 15:33 36.9 C 85 16 185/68 H 94 02/03/21 12:10 36.9 C 88 22 151/64 H 98 02/03/21 08:00 37.3 C 85 18 156/59 H 98 02/03/21 07:26 88 PG Care Time/CCT Total # of Minutes Spent Total Time Spent with Patient: Total time spent is greater than 50% in coordination of care (as documented) at patient's floor/unit and/or counseling patient: Coding Level of Care Code 03480 Subseq Hosp Care Lvl 2 Diagnoses Small bowel obstruction K56.609 Colon cancer metastasized to multiple sites C18.9 PAF (paroxysmal atrial fibrillation) I48.0 Prediabetes R73.03 Urinary frequency R35.0 Chronic kidney disease, stage IV (severe) N18.4
[2021-02-03] MEDS: HYDROmorphone INJ 1 MG/ML SYRINGE IV PRN ×2 (18:28→23:51)
[2021-02-04] MEDS ORDERED: HEPARIN 100 UNIT/ML 5ML FLUSH FLUSH PRN (00:01)
[2021-02-04] MEDS: HYDROmorphone INJ 1 MG/ML SYRINGE IV PRN ×6 (04:14→23:12)
[2021-02-04] MEDS: HYDROmorphone INJ 0.5 MG/0.5 ML SYR IV PRN (05:57)
[2021-02-04 06:10] LABS: Hematocrit (blood only) 31.5 % (37-47); Mean Corpuscular Hemoglobin 27.9 pg (25-34); Mean Corpuscular Hgb Conc 31.7 g/dL (32-36); Mean Corpuscular Volume 87.7 fL (80-100); Mean Platelet Volume 8.6 fL (7.4-10.4); Platelet Count 435 K/uL (130-400); RDW Coefficient of Variation 15.4 % (11.5-14.5); RDW Standard Deviation 50.2 fL (36.4-46.3); Red Blood Count 3.59 M/uL (4.2-5.4); White Blood Count 6.64 K/uL (4.8-10.8)
[2021-02-04 06:45] LABS: BUN Creatinine Ratio 13.1 (10-20); Calcium 7.7 mg/dl (8.5-10.1); Creatinine Clr Calc Pharmacy 45.1 ml/min; Est GFR (Non-African American) 76.8 ml/min; Magnesium 2.1 mg/dl (1.8-2.4); Potassium 4.5 mmol/L (3.5-5.1)
[2021-02-04] MEDS: NSS + 20MEQ KCL 20 MEQ/1,000 ML BAG IV SCH ×2 (07:15→14:58)
[2021-02-04] MEDS: ONDANSETRON INJ 2 MG/ML 2 ML VIAL IV PRN (07:42)
[2021-02-04] MEDS: CHECK fentaNYL PATCH PLACEMENT SCH ×3 (07:48→23:11)
[2021-02-04] MEDS: BRIMONIDINE TARTRATE-P 0.15% 5 ML BTL OP SCH ×2 (09:17→20:30)
[2021-02-04] MEDS: OLANZapine ZYDIS 5 MG ORALLY DIS. TAB PO SCH ×2 (11:46→20:30)
--- NOTE | 2021-02-04 12:22 | Surgery Progress Note ---
Date of Service February 04, 2021 Assessment & Plan (1) Small bowel obstruction: Seen by Dr. Lomax and not felt to be a surgical candidate. As there are no new recommendations and she is not a candidate for surgery, will sign off. Please call with questions. Slight bloody mucus per rectum is not that unusual. If increases in volume, may need endoscopic workup or intervention. (2) Colon cancer metastasized to multiple sites: Admission and Anticipated Discharge Date Admission Date: February 02, 2021 Subjective Complaining of 9/10 pain. Passing some bloody mucus from rectum. Nausea persists. Seen by palliative care yesterday. Physical Exam Constitutional: well developed; no acute distress Respiratory: normal respiratory effort, lungs clear to auscultation Cardiovascular: Rate/Rhythm: + tachycardic Gastrointestinal (Abdomen): Inspection/Auscultation: + abdominal surgical incision (prior midline incision, ostomy has small amount of stool in bag) and + hypoactive bowel sounds Percussion/Palpation: + abdomen tender (diffuse, mainly central) and abdomen soft; no guarding Results & Data ([facility]) Vital Signs (Past 12 Hours) Vital Signs Temp Pulse Pulse Resp BP Pulse Ox 02/04/21 09:18 199/74 H 02/04/21 08:10 36.9 C 138 H 20 95 02/04/21 08:00 97 H 02/04/21 04:43 36.9 C 91 H 16 186/67 H 96 02/04/21 01:02 93 H Laboratory Results Abnormal lab results 02/04/21 02/04/21 Range/Units 05:48 05:48 RBC 3.59 L (4.2-5.4) M/uL Hgb 10.0 L (12.0-16.0) g/dL Hct 31.5 L (37-47) % MCHC 31.7 L (32-36) g/dL RDW Std Deviation 50.2 H (36.4-46.3) fL RDW Coeff of [place] 15.4 H (11.5-14.5) % Plt Count 435 H (130-400) K/uL Sodium 135 L (136-145) mmol/L Calcium 7.7 L (8.5-10.1) mg/dl
[2021-02-04] MEDS ORDERED: ACETAMINOPHEN 1000 MG/100 ML IV IV PRN (17:36)
[2021-02-04] MEDS: FAMOTIDINE 20 MG in SYRINGE 3 ML IV SCH (18:42)
[2021-02-04] MEDS: ONDANSETRON INJ 2 MG/ML 2 ML VIAL IV SCH ×2 (18:43→23:12)
[2021-02-04] MEDS: ACETAMINOPHEN 1,000 MG/100 ML VIAL IV PRN (18:52)
[2021-02-04] MEDS: hydrALAZINE HCL 20 MG/ML VIAL IV SCH (21:59)
--- NOTE | 2021-02-04 23:22 | Hospitalist Progress Note ---
Date of Service February 04, 2021 Assessment & Plan (1) Small bowel obstruction: 2nd to "complex multilocular septated hypodense mass/fluid collection within the abdominal left lower quadrant involving the small bowel anastomosis with invasion into the left psoas and iliacus muscles" as per CT at admission. She was at [facility] in December. This fluid collection was drained by IR. It was deemed NOT infectious. Malignant cells were identified; thus, the mass is her colon ca. She remains very uncomfortable with pain & nausea. This is despite 2 scheduled anti-emetics along with PRN nausea meds as well as fentanyl patch and frequent dilaudid use. Highly encouraged NG tube placement - declined once again, wanting "more time.". Keep NPO. Cont IVF - lower rate to 75cc/hr. Appreciate gen surg consult. Without question she is not a surgical candidate. They have signed off since nothing surgical to do. I counseled patient - and later her daughter by phone - that pain/nausea will likely continue. Best option is palliation/hospice as her SBO is likely to continue and she is incredibly uncomfortable. Patient has been averse to hospice. Daughter and I talked about this tonight. Daughter states that when her mother hears hospice the mother thinks we are "giving up." Explained that this is not the case; we simply have a severe problem (colon ca) with resulting SBO that can't be fixed and which is causing extreme pain and other GI symptoms. I told her that at times her mother is truly suffering. See Dr Mauricio's consult note from 02/03 Really appreciate her assistance. Plan - * change scheduled phenergan to scheduled zofran 4mg IV q6h * continue zyprexa 2.5mg BID * change dilaudid to 1mg q2h prn * fentanyl patch recently increased from 12mcg to 25mcg * consider morphine or dilaudid drip * consider ativan IV prn if nausea persists * again encourage NG tube placement if all else fails for her nausea (2) Colon cancer metastasized to multiple sites: Large, complex multilocular septated hypodense mass/fluid collection within the abdominal left lower quadrant involving the small bowel anastomosis with invasion into the left psoas and iliacus muscles (14cm in size). Cont fentanyl patch + IV dilaudid prn. See above in "SBO." (3) PAF (paroxysmal atrial fibrillation): Eliquis on hold. If rate control is needed - start IV cardizem drip but would have to move to PCU for such. Allergic to beta blockers. Would prefer not to have to move her and focus more on SBO / colon ca symptom control. (4) Prediabetes: (5) Urinary frequency: placed hilario ua not suggestive of UTI (6) Chronic kidney disease, stage IV (severe): baseline CrCl upper 20s (7) Hypertension: severe likely exacerbated by abdominal pain given NPO status and numerous allergies/intolerances - start hydralazine 5mg IV q8h (allergy list says "dysuria" -- she has hilario, suspect she will tolerate without issue) (8) Goals of care, counseling/discussion: ideally all of pt's children, Dr Mauricio, and hospitalist team meet with patient at same time best option is comfort care / hospice add pepcid IV BID in the event she is having some upper GI discomfort/dyspepsia contributing to symptoms total time today with complex care coordination 40 min Admission and Anticipated Discharge Date Admission Date: February 02, 2021 Subjective called by nursing staff this am that pt's pain was SEVERE despite fentanyl patch and prn dilaudid also with refractory nausea despite schedule phenergan and scheduled zyprexa recommended NG tube insertion and I increased the dose and frequency of prn dilaudid when I came to bedside the nausea & abd pain were improved and she was resting more comfortably I had a lengthy discussion with her that her SBO was continuing on despite some passage of stool via her colostomy explained that she was having refractory nausea despite 2 scheduled meds for this explained that she was having refractory abd pain despite COPIOUS pain meds she again refused NG tube, stating "let's give it a bit more time" I told her that she had been here 48 hours without any significant change and that her pain/nausea would likely continue to persist tele overnight - sinus tach, PAT episodes (vs aflutter); no wide complex tachycardia Review of Systems Constitutional: + fatigue and + anorexia Respiratory: no dyspnea Cardiovascular: no chest pain Gastrointestinal: as per Subjective / HPI Physical Exam Constitutional: + ill appearing and + frail appearing; no altered mental status ENMT: external ear and nose normal, oropharynx normal Respiratory: normal respiratory effort, lungs clear to auscultation Cardiovascular: Rate/Rhythm: regular rhythm and + tachycardic Heart Sounds: normal S1 and normal S2 Vessels: posterior tibial pulses present and dorsalis pedis pulses present; no JVD Extremities: no edema Gastrointestinal (Abdomen): Inspection/Auscultation: + abdomen distended and + hypoactive bowel sounds Percussion/Palpation: + abdomen tender (diffuse, especially central ); no guarding and no hepatosplenomegaly ostomy bag with mild amount of brown stool Skin: + pallor Psychiatric: Orientation: alert, oriented to person and oriented to place Results & Data Results & Data ([facility]) Vital Signs (Past 12 Hours) Vital Signs Temp Pulse Resp BP BP Pulse Ox 02/04/21 23:14 37.3 C 111 H 16 169/72 H 94 02/04/21 19:07 37.2 C 101 H 18 185/67 H 92 02/04/21 16:09 37.1 C 108 H 20 182/68 H 97 02/04/21 13:58 37.1 C 115 H 20 199/75 H 99 Laboratory Results Laboratory Results - last 24 hr 02/04/21 02/04/21 05:48 05:48 WBC 6.64 RBC 3.59 L Hgb 10.0 L Hct 31.5 L MCV 87.7 MCH 27.9 MCHC 31.7 L RDW Std Deviation 50.2 H RDW Coeff of [place] 15.4 H Plt Count 435 H MPV 8.6 Sodium 135 L Potassium 4.5 Chloride 106 Carbon Dioxide 25 Anion Gap 4.0 BUN 9 D Creatinine 0.70 Est Cr Clr Drug Dosing 45.1 Est GFR ( Amer) 89.0 Est GFR (Non-Af Amer) 76.8 BUN/Creatinine Ratio 13.1 Glucose 80 Calcium 7.7 L Magnesium 2.1 PG Care Time/CCT Total # of Minutes Spent Total Time Spent with Patient: Total time spent is greater than 50% in coordination of care (as documented) at patient's floor/unit and/or counseling patient: Coding Level of Care Code 65443 Subseq Hosp Care Lvl 3 Diagnoses Small bowel obstruction K56.609 Colon cancer metastasized to multiple sites C18.9 PAF (paroxysmal atrial fibrillation) I48.0 Prediabetes R73.03 Urinary frequency R35.0 Chronic kidney disease, stage IV (severe) N18.4 Hypertension I10 Hypertension type: essential hypertension Goals of care, counseling/discussion Z71.89 (1) Hypertension Hypertension type: essential hypertension Qualified Code(s): I10 - Essential (primary) hypertension
[2021-02-05] MEDS: NSS + 20MEQ KCL 20 MEQ/1,000 ML BAG IV SCH ×2 (02:06→15:39)
[2021-02-05] MEDS: HYDROmorphone INJ 1 MG/ML SYRINGE IV PRN ×5 (02:51→14:58)
[2021-02-05] MEDS: ONDANSETRON INJ 2 MG/ML 2 ML VIAL IV SCH ×3 (05:02→17:55)
[2021-02-05] MEDS: hydrALAZINE HCL 20 MG/ML VIAL IV SCH ×3 (05:07→20:43)
[2021-02-05] MEDS: FAMOTIDINE 20 MG in SYRINGE 3 ML IV SCH ×2 (05:15→17:55)
[2021-02-05 06:50] LABS: BUN Creatinine Ratio 11.7 (10-20); Calcium 7.8 mg/dl (8.5-10.1); Creatinine Clr Calc Pharmacy 42.1 ml/min; Est GFR (African American) 81.9 ml/min; Est GFR (Non-African American) 70.7 ml/min; Magnesium 1.9 mg/dl (1.8-2.4); Potassium 4.3 mmol/L (3.5-5.1)
[2021-02-05] MEDS: CHECK fentaNYL PATCH PLACEMENT SCH ×2 (08:32→17:55)
[2021-02-05] MEDS: BRIMONIDINE TARTRATE-P 0.15% 5 ML BTL OP SCH ×2 (08:33→20:42)
[2021-02-05] MEDS: OLANZapine ZYDIS 5 MG ORALLY DIS. TAB PO SCH ×2 (08:33→20:43)
[2021-02-05] MEDS ORDERED: fentaNYL 25 MCG/HR TDSY TD SCH (09:00)
[2021-02-05] MEDS ORDERED: STAT IV Infusion **Titration per Protocol PRN (10:15)
--- NOTE | 2021-02-05 11:59 | Hospitalist Progress Note ---
Date of Service February 05, 2021 Assessment & Plan (1) Small bowel obstruction: 2nd to "complex multilocular septated hypodense mass/fluid collection within the abdominal left lower quadrant involving the small bowel anastomosis with invasion into the left psoas and iliacus muscles" as per CT at admission. She was at [facility] in December. This fluid collection was drained by IR. It was deemed NOT infectious. Malignant cells were identified; thus, the mass is her colon ca. N/V have improved, but she continues to have pain 5/10. She continues to require Dilaudid for pain control with a Fentanyl patch. Patient previously declined NG tube. Will continue to hold off for now as n/v have improved. Keep NPO. Cont IVF - lower rate to 75cc/hr. Appreciate gen surg consult. Without question she is not a surgical candidate. They have signed off since nothing surgical to do. Best option is palliation/hospice as her SBO is likely to continue and she is incredibly uncomfortable. Patient has been averse to hospice. See Dr Mauricio's consult note from 02/03 Really appreciate her assistance. Plan - * zofran 4mg IV q6h * continue zyprexa 2.5mg BID * dilaudid to 1mg q2h prn * fentanyl patch recently increased from 12mcg to 25mcg * consider morphine or dilaudid drip * consider ativan IV prn if nausea returns * again encourage NG tube placement if nausea returns * Pepcid IV BID for upper GI discomfort/dyspepsia * Patient takes omeprazole at home. Will add IV Protonix while inpatient d/t severity of symptoms. (2) Colon cancer metastasized to multiple sites: Large, complex multilocular septated hypodense mass/fluid collection within the abdominal left lower quadrant involving the small bowel anastomosis with invasion into the left psoas and iliacus muscles (14cm in size). Cont fentanyl patch + IV dilaudid prn. See above in "SBO." (3) PAF (paroxysmal atrial fibrillation): Eliquis on hold. Allergic to beta blockers. Patient with HR of 130 this AM. Tachycardic on exam. Will transfer to PCU/telemetry for diltiazem pushes 5mg IV q2h PRN for HR>120. Med/surg tele unable to provide these pushes. (of note nifedipine listed as causing exacerbation of interstitial cystitis on allergy list- hilario catheter in place- will monitor) (4) Prediabetes: (5) Urinary frequency: Hilario placed. Catheter draining clear, yellow urine this morning. UA not suggestive of UTI (6) Chronic kidney disease, stage IV (severe): baseline CrCl upper 20s (7) Hypertension: severe likely exacerbated by abdominal pain given NPO status and numerous allergies/intolerances - hydralazine 5mg IV q8h started (allergy list says "dysuria" -- she has hilario, suspect she will tolerate without issue) (8) Goals of care, counseling/discussion: ideally all of pt's children, Dr Mauricio, and hospitalist team meet with patient at same time best option is comfort care / hospice Admission and Anticipated Discharge Date Admission Date: February 02, 2021 Subjective Patient reports nausea and vomiting have resolved. She continues to have abdominal pain 5/10 this morning. She has had stool output from her colostomy. Review of Systems Constitutional: no fever and no chills Eyes: no worsening vision Ear, Nose, Mouth, Throat: no dizziness Respiratory: no dyspnea Cardiovascular: no chest pain Gastrointestinal: + abdominal pain (5/10); no nausea and no vomiting Physical Exam Physical Exam: Temp Pulse Resp BP Pulse Ox 37.6 C H 118 H 22 190/72 H 92 02/05/21 12:03 02/05/21 12:03 02/05/21 12:03 02/05/21 12:03 02/05/21 12:03 Constitutional: + acute distress and + overweight ENMT: Ears: no hearing impairment Neck: normal visual inspection Respiratory: normal respiratory effort, lungs clear to auscultation Cardiovascular: RRR, no murmur, no edema Gastrointestinal (Abdomen): Inspection/Auscultation: + abnormal bowel sounds (present, but diminished) Percussion/Palpation: + abdomen tender (LLQ, midline) and abdomen soft brown/greenish liquid stool in colostomy bag this morning. Psychiatric: A+Ox3, euthymic affect Results & Data Results & Data ([facility]) Vital Signs (Past 12 Hours) Vital Signs Temp Pulse Pulse Resp BP Pulse Ox 02/05/21 11:18 37.0 C 101 H 18 155/72 H 96 02/05/21 07:35 37.4 C 130 H 16 152/69 H 93 02/05/21 07:09 117 H 02/05/21 02:57 37.2 C 107 H 18 189/67 H 94 PG Care Time/CCT Total # of Minutes Spent Total Time Spent with Patient: Total time spent is greater than 50% in coordination of care (as documented) at patient's floor/unit and/or counseling patient: Coding Level of Care Code 11154 Subseq Hosp Care Lvl 2 Medical Decision Making Moderate Complexity Diagnoses Small bowel obstruction K56.609 Colon cancer metastasized to multiple sites C18.9 PAF (paroxysmal atrial fibrillation) I48.0 Prediabetes R73.03 Urinary frequency R35.0 Chronic kidney disease, stage IV (severe) N18.4 Hypertension I10 Hypertension type: essential hypertension Goals of care, counseling/discussion Z71.89 (1) Hypertension Hypertension type: essential hypertension Qualified Code(s): I10 - Essential (primary) hypertension
[2021-02-05] MEDS: PANTOprazole 40 MG in SYRINGE 0 ML IV SCH (20:44)
[2021-02-05] MEDS: dilTIAZem HCL 125 MG in DEXTROSE 5% 100 ML IV SCH (22:24)
[2021-02-06] MEDS: CHECK fentaNYL PATCH PLACEMENT SCH ×2 (00:16→10:17)
[2021-02-06] MEDS: ONDANSETRON INJ 2 MG/ML 2 ML VIAL IV SCH ×4 (00:16→19:54)
[2021-02-06] MEDS: NSS + 20MEQ KCL 20 MEQ/1,000 ML BAG IV SCH ×2 (04:45→22:50)
[2021-02-06] MEDS: hydrALAZINE HCL 20 MG/ML VIAL IV SCH ×3 (05:08→19:55)
[2021-02-06] MEDS: FAMOTIDINE 20 MG in SYRINGE 3 ML IV SCH ×2 (05:08→19:54)
[2021-02-06 05:43] LABS: Hemoglobin 9.4 g/dL (12.0-16.0); Mean Corpuscular Hemoglobin 28.4 pg (25-34); Mean Corpuscular Hgb Conc 32.4 g/dL (32-36); Mean Corpuscular Volume 87.6 fL (80-100); Mean Platelet Volume 8.7 fL (7.4-10.4); Platelet Count 367 K/uL (130-400); RDW Coefficient of Variation 15.8 % (11.5-14.5); RDW Standard Deviation 51.4 fL (36.4-46.3); Red Blood Count 3.31 M/uL (4.2-5.4); White Blood Count 7.84 K/uL (4.8-10.8)
[2021-02-06 06:10] LABS: Calcium 7.7 mg/dl (8.5-10.1); Creatinine Clr Calc Pharmacy 41.5 ml/min; Est GFR (African American) 80.6 ml/min; Est GFR (Non-African American) 69.5 ml/min; Potassium 4.5 mmol/L (3.5-5.1)
[2021-02-06] MEDS: PANTOprazole 40 MG in SYRINGE 0 ML IV SCH ×2 (09:16→22:50)
[2021-02-06] MEDS: BRIMONIDINE TARTRATE-P 0.15% 5 ML BTL OP SCH ×2 (09:16→19:23)
[2021-02-06] MEDS: OLANZapine ZYDIS 5 MG ORALLY DIS. TAB PO SCH ×2 (09:17→19:22)
[2021-02-06] MEDS: HYDROmorphone INJ 1 MG/ML SYRINGE IV PRN ×2 (09:21→13:56)
[2021-02-06] MEDS ORDERED: STAT IV Infusion **Titration per Protocol STA (14:37)
[2021-02-06] MEDS ORDERED: HYDROmorphone/NSS 100 MG/100 ML BAG IV SCH (14:45)
--- NOTE | 2021-02-06 14:52 | Palliative Care Progress Note ---
Date of Service February 06, 2021 Assessment & Plan (1) Abdominal pain: Not effectively relieved with fentanyl patch and IV hydromorphone. I talked with her about starting her on a medication infusion to help relieve her pain and she is agreeable. Will start hydromorphone infusion and discontinue fentanyl patch. (2) Nausea: Persistent with routine olanzipine. Continue prn zofran which is helpful per Kadie. (3) Small bowel obstruction: Related to advanced colon cancer. Not a surgical candidate. (4) Colon cancer metastasized to multiple sites: (5) Anxiety: (6) Palliative care encounter: Kadie has had difficulty discussing goals of care and becomes very anxious. Today she mentioned that she just wants to go to sleep. I talked with her daughter, Blanka, at bedside. Her family all understands that Kadie is approaching her dying time. It is clear that Kadie dose also. At this point in time, focus on symptom management is highest priority. Blanka is in agreement with hydromorphone infusion as long as Kadie is as well. We had planned family meeting for tomorrow to discuss goals of care. Blanka will talk with her siblings today. It appears that a comfort directed approach would be in her best interest. Will continue other treatments until family is able to talk together and if in agreement, will shift to comfort care. Admission and Anticipated Discharge Date Admission Date: February 02, 2021 Subjective Sleeping but easily arousable. Still having pain and nausea. "I just want to go to sleep". Review of Systems Review of Systems: [place] Symptom Assessment Scale Pain 2/3 Dyspnea 1/3 Nausea 2/3 Anxiety 1/3 Drowsiness 1/3 Palliative Performance Score 20% Physical Exam Constitutional: + ill appearing ENMT: Mouth: + dry oral mucous membranes Respiratory: no labored breathing Neurologic: lethargic Results & Data ([facility]) Vital Signs (Past 12 Hours) Vital Signs Temp Pulse Resp BP BP Pulse Ox 02/06/21 11:27 97.9 F 98 H 20 176/51 H 94 02/06/21 07:45 98.4 F 93 H 19 163/54 H 94 02/06/21 04:15 98.4 F 98 H 9 L 158/54 H 91 PG Care Time/CCT Total # of Minutes Spent Total Time Spent with Patient: Total time spent is greater than 50% in coordination of care (as documented) at patient's floor/unit and/or counseling patient: total time spent 40 minutes with more than 50% of time spent on goals of care, symptom management, family communication and support. Coding Level of Care Code 34628 Subseq Hosp Care Lvl 3 Diagnoses Abdominal pain R10.9 Abdominal location: unspecified location Nausea R11.0 Small bowel obstruction K56.609 Colon cancer metastasized to multiple sites C18.9 Anxiety F41.9 Palliative care encounter Z51.5 (1) Abdominal pain Abdominal location: unspecified location Qualified Code(s): R10.9 - Unspecified abdominal pain
[2021-02-06] MEDS ORDERED: NALOXONE HCL 0.4 MG/1 ML VIAL/CARP IV PRN (15:00)
[2021-02-06] MEDS: dilTIAZem HCL 125 MG in DEXTROSE 5% 100 ML IV SCH (15:24)
[2021-02-06] MEDS: HYDROmorphone INJ 0.5 MG/0.5 ML SYR IV PRN (16:56)
[2021-02-06] MEDS: HYDROmorphone PCA 30 MG/30 ML IV PRN (17:34)
--- NOTE | 2021-02-06 17:58 | Hospitalist Progress Note ---
Date of Service February 06, 2021 Assessment & Plan (1) Goals of care, counseling/discussion: Plan to transfer to comfort care per discussion with palliative care and daughter at bedside who is discussed with the rest of the family. Given her ongoing abdominal pain and severity of illness this appears to be reasonable. Continue symptomatic management with nausea and pain (2) Small bowel obstruction: 2nd to "complex multilocular septated hypodense mass/fluid collection within the abdominal left lower quadrant involving the small bowel anastomosis with invasion into the left psoas and iliacus muscles" as per CT at admission. She was at [facility] in December. This fluid collection was drained by IR. It was deemed NOT infectious. Malignant cells were identified; thus, the mass is her colon ca. She remains very uncomfortable with pain & nausea. This is despite 2 scheduled anti-emetics along with PRN nausea meds as well as fentanyl patch and frequent dilaudid use. Keep NPO. Cont IVF - lower rate to 75cc/hr. Appreciate gen surg consult. -Nonsurgical candidate Plan - * change scheduled phenergan to scheduled zofran 4mg IV q6h * continue zyprexa 2.5mg BID * change dilaudid to 1mg q2h prn * fentanyl patch recently increased from 12mcg to 25mcg * consider morphine or dilaudid drip * consider ativan IV prn if nausea persists * again encourage NG tube placement if all else fails for her nausea (3) Colon cancer metastasized to multiple sites: Large, complex multilocular septated hypodense mass/fluid collection within the abdominal left lower quadrant involving the small bowel anastomosis with invasion into the left psoas and iliacus muscles (14cm in size). Cont fentanyl patch + IV dilaudid prn. See above in "SBO." (4) PAF (paroxysmal atrial fibrillation): Eliquis on hold. (5) Prediabetes: (6) Urinary frequency: placed hilario ua not suggestive of UTI (7) Chronic kidney disease, stage IV (severe): baseline CrCl upper 20s No further lab work planned. (8) Hypertension: severe likely exacerbated by abdominal pain given NPO status and numerous allergies/intolerances - start hydralazine 5mg IV q8h (allergy list says "dysuria" -- she has hilario, suspect she will tolerate without issue) Admission and Anticipated Discharge Date Admission Date: February 02, 2021 Subjective Patient reports continued abdominal pain severity 6/10. She has had stool output from her colostomy nausea vomiting resolved. Palliative discussed with the patient and daughter and decision with family is to make her comfort care at the current time. Review of Systems Review of Systems: All systems reviewed & are unremarkable except as noted in HPI & below Physical Exam Constitutional: + ill appearing and + frail appearing; no altered mental status Eyes: + anicteric sclerae ENMT: Mouth: + dry oral mucous membranes Respiratory: normal respiratory effort Gastrointestinal (Abdomen): Inspection/Auscultation: + abdomen distended Psychiatric: Orientation: alert Results & Data Results & Data ([facility]) Vital Signs (Past 12 Hours) Vital Signs Temp Pulse Resp BP BP Pulse Ox 02/06/21 15:52 37.0 C 120 H 19 187/60 H 91 02/06/21 11:27 36.6 C 98 H 20 176/51 H 94 02/06/21 07:45 36.9 C 93 H 19 163/54 H 94 PG Care Time/CCT Total # of Minutes Spent Total Time Spent with Patient: Total time spent is greater than 50% in coordination of care (as documented) at patient's floor/unit and/or counseling patient: Coding Level of Care Code 94544 Subseq Hosp Care Lvl 2 Diagnoses Goals of care, counseling/discussion Z71.89 Small bowel obstruction K56.609 Colon cancer metastasized to multiple sites C18.9 PAF (paroxysmal atrial fibrillation) I48.0 Prediabetes R73.03 Urinary frequency R35.0 Chronic kidney disease, stage IV (severe) N18.4 Hypertension I10 Hypertension type: essential hypertension (1) Hypertension Hypertension type: essential hypertension Qualified Code(s): I10 - Essential (primary) hypertension
[2021-02-06] MEDS: SODIUM CHLORIDE 0.9% 1000ML 1,000 ML IV SCH (22:31)
[2021-02-07] MEDS: ONDANSETRON INJ 2 MG/ML 2 ML VIAL IV SCH ×4 (01:06→18:06)
[2021-02-07] MEDS: hydrALAZINE HCL 20 MG/ML VIAL IV SCH ×3 (05:10→23:23)
[2021-02-07] MEDS: FAMOTIDINE 20 MG in SYRINGE 3 ML IV SCH ×2 (05:10→18:06)
[2021-02-07] MEDS: OLANZapine ZYDIS 5 MG ORALLY DIS. TAB PO SCH ×3 (09:53→20:54)
[2021-02-07] MEDS: BRIMONIDINE TARTRATE-P 0.15% 5 ML BTL OP SCH ×2 (09:53→20:55)
[2021-02-07] MEDS: PANTOprazole 40 MG in SYRINGE 0 ML IV SCH ×2 (10:01→22:08)
[2021-02-07] MEDS: HYDROmorphone INJ 0.5 MG/0.5 ML SYR IV PRN (11:39)
--- NOTE | 2021-02-07 15:30 | Palliative Care Progress Note ---
Date of Service February 07, 2021 Assessment & Plan (1) Palliative care encounter: Now on comfort directed care. She is talking about her dying time and saying goodbye to family. Monitor for comfort. We could consider home with hospice if family is comfortable with managing her care at home. (2) Abdominal pain: bowel obstruction with colon cancer. Pain improved with hydromorphone infusion. Continue at current rate. No prn dosing (3) Nausea: with bowel obstruction. Continue routine olanzipine and zofran (4) Colon cancer metastasized to multiple sites: Admission and Anticipated Discharge Date Admission Date: February 02, 2021 Subjective Sleeping but arousable. She reports that pain is better on hydromorphone infusion. No prn doses. She denies nausea at this time. She has been saying goodbye to her family and talking about the Lord coming to take her. Review of Systems Review of Systems: [place] Symptom Assessment Scale Pain 1/3 Dyspnea 0/3 Nausea 0/3 Anxiety 1/3 Drowsiness 2/3 Palliative Performance Score 20% Physical Exam Constitutional: comfortable and + lethargic ENMT: Mouth: + dry oral mucous membranes Respiratory: normal respiratory effort; no labored breathing Neurologic: moves all extremities; not confused Results & Data ([facility]) Vital Signs (Past 12 Hours) Vital Signs Pulse Resp BP 02/07/21 05:12 102 H 20 151/56 H PG Care Time/CCT Total # of Minutes Spent Total Time Spent with Patient: Total time spent is greater than 50% in coordination of care (as documented) at patient's floor/unit and/or counseling patient: Coding Level of Care Code 87126 Subseq Hosp Care Lvl 2 Diagnoses Palliative care encounter Z51.5 Abdominal pain R10.9 Abdominal location: unspecified location Nausea R11.0 Colon cancer metastasized to multiple sites C18.9 (1) Abdominal pain Abdominal location: unspecified location Qualified Code(s): R10.9 - Unspecified abdominal pain
[2021-02-07] MEDS: ACETAMINOPHEN 1,000 MG/100 ML VIAL IV PRN (15:37)
--- NOTE | 2021-02-07 19:39 | Hospitalist Progress Note ---
Date of Service February 07, 2021 Assessment & Plan (1) Goals of care, counseling/discussion: Appreciate palliative management of comfort directed care. Continue hydromorphone infusion. Discussed with Dr. Mauricio in the morning for hospice at home if family are amenable. (2) Small bowel obstruction: 2nd to "complex multilocular septated hypodense mass/fluid collection within the abdominal left lower quadrant involving the small bowel anastomosis with invasion into the left psoas and iliacus muscles" as per CT at admission. She was at [facility] in December. This fluid collection was drained by IR. It was deemed NOT infectious. Malignant cells were identified; thus, the mass is her colon ca. Keep NPO. Continue slow IVF @ 75 ml/hr Appreciate gen surg consult. -Nonsurgical candidate Plan - * Continue scheduled ondansetron with olanzapine * Continue hydromorphone infusion * Consider ativan IV prn if nausea persists (3) Colon cancer metastasized to multiple sites: Large, complex multilocular septated hypodense mass/fluid collection within the abdominal left lower quadrant involving the small bowel anastomosis with invasion into the left psoas and iliacus muscles (14cm in size). Cont fentanyl patch + IV dilaudid prn. See above in "SBO." (4) PAF (paroxysmal atrial fibrillation): Eliquis on hold. (5) Prediabetes: (6) Urinary frequency: placed hilario ua not suggestive of UTI (7) Chronic kidney disease, stage IV (severe): baseline CrCl upper 20s No further lab work planned. (8) Hypertension: To avoid symptomatic hypertensive urgency/emergency we will continue intravenous hydralazine 5 mg 3 times daily Admission and Anticipated Discharge Date Admission Date: February 02, 2021 Subjective Sleeping but wakes with voice. Pain much better controlled on Dilaudid infusion. No nausea or vomiting. Review of Systems Review of Systems: All systems reviewed & are unremarkable except as noted in HPI & below Physical Exam Constitutional: + frail appearing; no altered mental status ENMT: Mouth: + dry oral mucous membranes Respiratory: normal respiratory effort Gastrointestinal (Abdomen): Inspection/Auscultation: + abdomen distended Neurologic: awake (to voice) PG Care Time/CCT Total # of Minutes Spent Total Time Spent with Patient: Total time spent is greater than 50% in coordination of care (as documented) at patient's floor/unit and/or counseling patient: Coding Level of Care Code 23188 Subseq Hosp Care Lvl 1 Diagnoses Goals of care, counseling/discussion Z71.89 Small bowel obstruction K56.609 Colon cancer metastasized to multiple sites C18.9 PAF (paroxysmal atrial fibrillation) I48.0 Prediabetes R73.03 Urinary frequency R35.0 Chronic kidney disease, stage IV (severe) N18.4 Hypertension I10 Hypertension type: essential hypertension (1) Hypertension Hypertension type: essential hypertension Qualified Code(s): I10 - Essential (primary) hypertension
[2021-02-07] MEDS: LACTATED RINGER'S 1,000 ML IV SCH (20:53)
[2021-02-08] MEDS: ONDANSETRON INJ 2 MG/ML 2 ML VIAL IV SCH ×5 (00:40→23:59)
[2021-02-08] MEDS: FAMOTIDINE 20 MG in SYRINGE 3 ML IV SCH ×2 (05:34→17:48)
[2021-02-08] MEDS: hydrALAZINE HCL 20 MG/ML VIAL IV SCH ×3 (06:34→21:05)
[2021-02-08] MEDS: OLANZapine ZYDIS 5 MG ORALLY DIS. TAB PO SCH ×3 (08:58→20:52)
[2021-02-08] MEDS: BRIMONIDINE TARTRATE-P 0.15% 5 ML BTL OP SCH ×2 (08:58→09:16)
[2021-02-08] MEDS: PANTOprazole 40 MG in SYRINGE 0 ML IV SCH (08:58)
[2021-02-08] MEDS: LACTATED RINGER'S 1,000 ML IV SCH ×2 (09:05→21:13)
[2021-02-08] MEDS: SODIUM CHLORIDE 0.9% 1000ML 1,000 ML IV SCH ×2 (09:12→14:59)
[2021-02-08] MEDS: LORazepam 1 MG/2 ML VIAL IV PRN (10:25)
--- NOTE | 2021-02-08 10:35 | Palliative Care Progress Note ---
Date of Service February 08, 2021 Assessment & Plan (1) Palliative care encounter: Goal of care is comfort measures only per family. Discussed with Dr. Lomax. She is at high risk for increased nausea, vomiting and pain with obstruction even with medical management. He would consider NGT for trial decompression with possible venting G tube if indicated. I spoke with two of Kadie's daughters at bedside and reviewed concerns about symptom management and discussed trial of NGT and possible G tube placement. They asked about prognosis which I believe is days to a week at this time. Given Kadie's comments about wanting to sleep and limited prognosis, they are not in favor of G tube placement. We did discuss that if NG were in place, Kadie could take sips of liquids and ice chips with decreased risk of pain, nausea and vomiting. Kadie had refused NG tube earlier in her admission and they would prefer not to do that. Their preference at this time would be medical management. They are comfortable with her being sedated for palliative measures if needed. I called Blanka, her daughter who is POA. No answer. We reach out later today. I did speak with Blanka about plan of care. She tells met that they are all in agreement that whatever Kadie wants, they want for her. Per Kadie and family wishes, will increase lorazepam to routine dosing. (2) Nausea: She is on zofran and zyprexa for nausea. She has been taking sips of water. (3) Abdominal pain: Dilaudid infusion basal rate at 0.4mg/hr. She had one bolus dose in the last 24 hours. (4) Anxiety: Severe distress this morning. IV ativan ordered. Will do prn for now. May need routine dosing if symptoms persist. (5) Small bowel obstruction: (6) Colon cancer metastasized to multiple sites: Admission and Anticipated Discharge Date Admission Date: February 02, 2021 Subjective Very anxious this morning. Talking about going to sleep and being at peace and then she woke up. "I just want to sleep" Two of her daughters are at bedside trying to console her. Review of Systems Review of Systems: [place] Symptom Assessment Scale Pain 1/3 Dyspnea 0/3 Nausea 2/3 Anxiety 3/3 Drowsiness 1/3 Palliative Performance Score 20% Physical Exam Constitutional: + acute distress and + ill appearing ENMT: Mouth: + dry oral mucous membranes Respiratory: normal respiratory effort; no labored breathing Gastrointestinal (Abdomen): Inspection/Auscultation: + abdomen distended Percussion/Palpation: + abdomen tender Skin: warm and dry Psychiatric: Affect: + anxious affect PG Care Time/CCT Total # of Minutes Spent Total Time Spent with Patient: Total time spent is greater than 50% in coordination of care (as documented) at patient's floor/unit and/or counseling patient: total time spent 45 minutes with more than 50% of time spent on goals of care, symptom management, coordination of care, prognosis, family education and support Coding Level of Care Code 84839 Subseq Hosp Care Lvl 3 Diagnoses Palliative care encounter Z51.5 Nausea R11.0 Abdominal pain R10.9 Abdominal location: unspecified location Anxiety F41.9 Small bowel obstruction K56.609 Colon cancer metastasized to multiple sites C18.9 Time Spent (min) 45 (1) Abdominal pain Abdominal location: unspecified location Qualified Code(s): R10.9 - Unspecified abdominal pain
--- NOTE | 2021-02-08 10:52 | Surgery Progress Note ---
Date of Service February 08, 2021 Assessment & Plan (1) Small bowel obstruction: discussed case with Dr. Mauricio from Palliative Care. could consider PEG tube for decompression only which may improve pt's pain/symptoms..... could trial NGT 24 hours...if abdominal pain improves could consider gastrostomy tube..... Dr. Mauricio discussed option with family today...they do not want to pursue this at this time.... will be available if any questions or if I can assist in any way. Admission and Anticipated Discharge Date Admission Date: February 02, 2021 Subjective pt seen. family at bedside. pt awake but somewhat confused, likely secondary to pain medications. appears reasonably comfortable. Physical Exam Physical Exam: awake/confused abd: soft. mild distension. mild diffuse tenderness PG Care Time/CCT Total # of Minutes Spent Total Time Spent with Patient: Total time spent is greater than 50% in coordination of care (as documented) at patient's floor/unit and/or counseling patient: Coding Level of Care Code 01417 Subseq Hosp Care Lvl 3 Diagnoses Small bowel obstruction K56.609
[2021-02-08] MEDS: HYDROmorphone INJ 0.5 MG/0.5 ML SYR IV PRN (17:48)
[2021-02-08] MEDS: HYDROmorphone PCA 30 MG/30 ML IV PRN (17:56)
--- NOTE | 2021-02-08 19:19 | Hospitalist Progress Note ---
Date of Service February 08, 2021 Assessment & Plan (1) Goals of care, counseling/discussion: Appreciate palliative management of comfort directed care. Continue hydromorphone infusion. Discussed with Dr. Mauricio -due to suspected imminent demise and difficulty with controlling patient symptoms deferring home with hospice at this time. (2) Small bowel obstruction: 2nd to "complex multilocular septated hypodense mass/fluid collection within the abdominal left lower quadrant involving the small bowel anastomosis with invasion into the left psoas and iliacus muscles" as per CT at admission. She was at [facility] in December. This fluid collection was drained by IR. It was deemed NOT infectious. Malignant cells were identified; thus, the mass is her colon ca. Keep NPO. Continue slow IVF @ 75 ml/hr Appreciate gen surg consult. -Nonsurgical candidate Plan - * Continue scheduled ondansetron with olanzapine * Continue hydromorphone infusion * Ativan IV as needed for agitation (3) Colon cancer metastasized to multiple sites: Large, complex multilocular septated hypodense mass/fluid collection within the abdominal left lower quadrant involving the small bowel anastomosis with invasion into the left psoas and iliacus muscles (14cm in size). Cont fentanyl patch + IV dilaudid prn. See above in "SBO." (4) PAF (paroxysmal atrial fibrillation): Eliquis on hold. (5) Prediabetes: (6) Urinary frequency: placed hilario ua not suggestive of UTI (7) Chronic kidney disease, stage IV (severe): baseline CrCl upper 20s No further lab work planned. (8) Hypertension: To avoid symptomatic hypertensive urgency/emergency we will continue intravenous hydralazine 5 mg 3 times daily Admission and Anticipated Discharge Date Admission Date: February 02, 2021 Subjective Patient drowsy after Ativan given this morning. Does not appear to be uncomfortable. Irregular breathing. Discussed with daughters at bedside all q uestions answered at this time. Review of Systems Review of Systems: Unobtainable due to cognitive status Physical Exam Constitutional: + ill appearing; no acute distress Respiratory: + uses accessory muscles and + abnormal respiratory pattern (Irregular) PG Care Time/CCT Total # of Minutes Spent Total Time Spent with Patient: Total time spent is greater than 50% in coordination of care (as documented) at patient's floor/unit and/or counseling patient: Coding Level of Care Code 64732 Subseq Hosp Care Lvl 1 Diagnoses Goals of care, counseling/discussion Z71.89 Small bowel obstruction K56.609 Colon cancer metastasized to multiple sites C18.9 PAF (paroxysmal atrial fibrillation) I48.0 Prediabetes R73.03 Urinary frequency R35.0 Chronic kidney disease, stage IV (severe) N18.4 Hypertension I10 Hypertension type: essential hypertension (1) Hypertension Hypertension type: essential hypertension Qualified Code(s): I10 - Essential (primary) hypertension
[2021-02-09] MEDS: HYDROmorphone PCA 30 MG/30 ML IV PRN (01:10)
[2021-02-09] MEDS: ONDANSETRON INJ 2 MG/ML 2 ML VIAL IV SCH ×4 (05:58→23:28)
[2021-02-09] MEDS: FAMOTIDINE 20 MG in SYRINGE 3 ML IV SCH ×2 (05:58→18:16)
[2021-02-09] MEDS: hydrALAZINE HCL 20 MG/ML VIAL IV SCH ×3 (05:58→22:14)
[2021-02-09] MEDS: OLANZapine ZYDIS 5 MG ORALLY DIS. TAB PO SCH ×3 (09:56→21:03)
[2021-02-09] MEDS: LORazepam 1 MG/2 ML VIAL IV PRN (10:08)
[2021-02-09] MEDS: SODIUM CHLORIDE 0.9% 1000ML 1,000 ML IV SCH (10:30)
--- NOTE | 2021-02-09 12:53 | Palliative Care Progress Note ---
Date of Service February 09, 2021 Assessment & Plan (1) Palliative care encounter: Appears comfortable at this time. Family denies concerns about comfort. Continue hydromorphone infusion and routine lorazepam. Continue zyprexa as tolerated for nausea. Would discontinue IV fluids at this point as she is approaching her dying time. Discussed with family what to expect. Expect within a day or two. (2) Small bowel obstruction: (3) Chronic kidney disease, stage IV (severe): (4) Colon cancer metastasized to multiple sites: Admission and Anticipated Discharge Date Admission Date: February 02, 2021 Subjective Unresponsive. Had been restless and distressed last night. Hydromorphone prn dose given and basal rate increased. Son and daughter at bedside. Review of Systems Review of Systems: Unobtainable due to reduced consciousness [place] Symptom Assessment Scale Pain AD 0/3 Dyspnea 0/3 Drowsiness 3/3 Palliative Performance Score 10% Physical Exam Constitutional: no acute distress ENMT: Mouth: + dry oral mucous membranes Respiratory: normal respiratory effort; no labored breathing Gastrointestinal (Abdomen): Inspection/Auscultation: + abdomen distended Neurologic: + obtunded Results & Data ([facility]) Vital Signs (Past 12 Hours) Vital Signs Pulse BP 02/09/21 05:55 125 H 134/73 PG Care Time/CCT Total # of Minutes Spent Total Time Spent with Patient: Total time spent is greater than 50% in coord ination of care (as documented) at patient's floor/unit and/or counseling patient: Coding Level of Care Code 69982 Subseq Hosp Care Lvl 2 Diagnoses Palliative care encounter Z51.5 Small bowel obstruction K56.609 Chronic kidney disease, stage IV (severe) N18.4 Colon cancer metastasized to multiple sites C18.9
--- NOTE | 2021-02-09 19:24 | Hospitalist Progress Note ---
Date of Service February 09, 2021 Assessment & Plan (1) Goals of care, counseling/discussion: Appreciate palliative management of comfort directed care. Continue hydromorphone infusion. Discussed with Dr. Mauricio - due to suspected imminent demise and difficulty with controlling patient symptoms deferring home with hospice at this time. Stopped IV fluids (2) Small bowel obstruction: 2nd to "complex multilocular septated hypodense mass/fluid collection within the abdominal left lower quadrant involving the small bowel anastomosis with invasion into the left psoas and iliacus muscles" as per CT at admission. She was at [facility] in December. This fluid collection was drained by IR. It was deemed NOT infectious. Malignant cells were identified; thus, the mass is her colon ca. Keep NPO. Continue slow IVF @ 75 ml/hr Appreciate gen surg consult. -Nonsurgical candidate Plan - * Continue scheduled ondansetron with olanzapine * Continue hydromorphone infusion * Ativan IV as needed for agitation (3) Colon cancer metastasized to multiple sites: Large, complex multilocular septated hypodense mass/fluid collection within the abdominal left lower quadrant involving the small bowel anastomosis with invasion into the left psoas and iliacus muscles (14cm in size). Cont fentanyl patch + IV dilaudid prn. See above in "SBO." (4) PAF (paroxysmal atrial fibrillation): Eliquis on hold. (5) Prediabetes: (6) Urinary frequency: placed hilario ua not suggestive of UTI (7) Chronic kidney disease, stage IV (severe): baseline CrCl upper 20s No further lab work planned. (8) Hypertension: To avoid symptomatic hypertensive urgency/emergency we will continue intravenous hydralazine 5 mg 3 times daily Admission and Anticipated Discharge Date Admission Date: February 02, 2021 Subjective Patient resting comfortably. Review of Systems Review of Systems: Unobtainable due to cognitive status Physical Exam Constitutional: no acute distress Respiratory: + abnormal respiratory pattern (Irregular) Results & Data Results & Data ([facility]) Vital Signs (Past 12 Hours) Vital Signs Pulse BP 02/09/21 14:57 125 H 109/68 PG Care Time/CCT Total # of Minutes Spent Total Time Spent with Patient: Total time spent is greater than 50% in coordination of care (as documented) at patient's floor/unit and/or counseling patient: Coding Level of Care Code 60883 Subseq Hosp Care Lvl 1 Diagnoses Goals of care, counseling/discussion Z71.89 Small bowel obstruction K56.609 Colon cancer metastasized to multiple sites C18.9 PAF (paroxysmal atrial fibrillation) I48.0 Prediabetes R73.03 Urinary frequency R35.0 Chronic kidney disease, stage IV (severe) N18.4 Hypertension I10 Hypertension type: essential hypertension (1) Hypertension Hypertension type: essential hypertension Qualified Code(s): I10 - Essential (primary) hypertension
[2021-02-10] MEDS: ONDANSETRON INJ 2 MG/ML 2 ML VIAL IV SCH ×4 (05:34→23:28)
[2021-02-10] MEDS: hydrALAZINE HCL 20 MG/ML VIAL IV SCH (05:34)
[2021-02-10] MEDS: FAMOTIDINE 20 MG in SYRINGE 3 ML IV SCH ×2 (05:40→17:09)
[2021-02-10] MEDS: OLANZapine ZYDIS 5 MG ORALLY DIS. TAB PO SCH ×3 (08:20→19:40)
--- NOTE | 2021-02-10 12:45 | Palliative Care Progress Note ---
Date of Service February 10, 2021 Assessment & Plan (1) Palliative care encounter: Comfortable on current regimen with dilaudid infusion, prn dosing as well as prn lorazepam. She has not had either prn medication in last 24 hours. Continue current regimen. She is likely within a day or two of her . I spoke with her daughter at bedside. (2) Small bowel obstruction: (3) Abdominal pain: (4) Colon cancer metastasized to multiple sites: Admission and Anticipated Discharge Date Admission Date: February 02, 2021 Subjective Resting comfortably. Arouses briefly with stimuli but settles quickly. No facial grimace. Review of Systems Review of Systems: [place] Symptom Assessment Scale PainAD 0/3 Dyspnea by observation 0/3 Palliative Performance Score 10% Physical Exam Constitutional: no acute distress Respiratory: normal respiratory effort; no labored breathing no audible rhonchi Gastrointestinal (Abdomen): Percussion/Palpation: abdomen soft Skin: pale, no mottling Neurologic: + obtunded PG Care Time/CCT Total # of Minutes Spent Total Time Spent with Patient: Total time spent is greater than 50% in coordination of care (as documented) at patient's floor/unit and/or counseling patient: Coding Level of Care Code 53859 Subseq Hosp Care Lvl 2 Diagnoses Palliative care encounter Z51.5 Small bowel obstruction K56.609 Abdominal pain R10.9 Abdominal location: unspecified location Colon cancer metastasized to multiple sites C18.9 (1) Abdominal pain Abdominal location: unspecified location Qualified Code(s): R10.9 - Unspecified abdominal pain
[2021-02-10] MEDS: LORazepam 1 MG/2 ML VIAL IV PRN (13:50)
[2021-02-10] MEDS: HYDROmorphone PCA 30 MG/30 ML IV PRN (19:28)
--- NOTE | 2021-02-10 19:34 | Hospitalist Progress Note ---
Date of Service February 10, 2021 Assessment & Plan (1) Goals of care, counseling/discussion: Appreciate palliative management of comfort directed care. Continue hydromorphone infusion. Suspected demise during this hospitalization. Unable to transport home due to suspect immenent demise and multiple medication required to keep comfortable. (2) Small bowel obstruction: 2nd to "complex multilocular septated hypodense mass/fluid collection within the abdominal left lower quadrant involving the small bowel anastomosis with invasion into the left psoas and iliacus muscles" as per CT at admission. She was at [facility] in December. This fluid collection was drained by IR. It was deemed NOT infectious. Malignant cells were identified; thus, the mass is her colon ca. Appreciate gen surg consult. -Nonsurgical candidate Plan - * Continue scheduled olanzapine * Continue hydromorphone infusion * Ativan IV as needed for agitation (3) Colon cancer metastasized to multiple sites: (4) PAF (paroxysmal atrial fibrillation): (5) Prediabetes: (6) Urinary frequency: (7) Chronic kidney disease, stage IV (severe): (8) Hypertension: Admission and Anticipated Discharge Date Admission Date: February 02, 2021 Subjective Patient resting comfortably. Review of Systems Review of Systems: Unobtainable due to cognitive status and Unobtainable due to reduced consciousness Physical Exam Constitutional: no acute distress Respiratory: + abnormal respiratory pattern (Irregular) Skin: + mottling PG Care Time/CCT Total # of Minutes Spent Total Time Spent with Patient: Total time spent is greater than 50% in coordination of care (as documented) at patient's floor/unit and/or counseling patient: Coding Level of Care Code 32831 Subseq Hosp Care Lvl 1 Diagnoses Goals of care, counseling/discussion Z71.89 Small bowel obstruction K56.609 Colon cancer metastasized to multiple sites C18.9 PAF (paroxysmal atrial fibrillation) I48.0 Prediabetes R73.03 Urinary frequency R35.0 Chronic kidney disease, stage IV (severe) N18.4 Hypertension I10 Hypertension type: essential hypertension (1) Hypertension Hypertension type: essential hypertension Qualified Code(s): I10 - Essential (primary) hypertension
[2021-02-11] MEDS: ATROPINE SULFATE 1% OP SOLN 5 ML BTL SL PRN ×3 (05:29→14:01)
[2021-02-11] MEDS: FAMOTIDINE 20 MG in SYRINGE 3 ML IV SCH (05:30)
[2021-02-11] MEDS: ONDANSETRON INJ 2 MG/ML 2 ML VIAL IV SCH ×2 (05:30→11:58)
[2021-02-11] MEDS: OLANZapine ZYDIS 5 MG ORALLY DIS. TAB PO SCH ×2 (09:09→13:42)
--- NOTE | 2021-02-11 16:45 | Death Pronouncement Note ---
Date of Service February 11, 2021 Pronouncement Note Admission Date Admission Date: February 02, 2021 Date and Time of Date of : 02/11/21 Time of : 15:34 PCOD Preliminary cause of : Small bowel obstruction Contributing Factors (1) Colon cancer metastasized to multiple sites: (2) PAF (paroxysmal atrial fibrillation): (3) Prediabetes: (4) Chronic kidney disease, stage IV (severe): (5) Hypertension: Hospital Course Hospital Course: See d/c summary dated 02/11/21. 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
--- NOTE | 2021-02-19 21:34 | Discharge Summary ---
Date of Service date of admission - February 02, 2021 date of - February 11, 2021 time of - 1534 Admission HPI Per Admitting Provider 89-year-old female who presents emergency department complaining of abdominal pain. This pt has had multiple abdominal surgeries for colon cancer which date back to 2016, including colostomy formation and most recently intra abdominal complex fluid drainage. Her primary surgeon here has been Dr Lomax. The patient reports that she is having abdominal pain in the left lower quadrant that radiates into her back. The patient is on fentanyl and has taken oxycodone for the pain without relief. In addition the patient is also complaining of na usea and vomiting that has been ongoing for the past 3 days. She was sent in by home health nursing over concerns with the patient is dehydrated. She describes the pain as an aching sensation and nothing appears to make the pain better or worse. She reports she has had crackers to eat today but otherwise has been unable to keep anything else down. Recently the pt presented to the ER here on December 08, 2020 secondary to abdominal pain. During that visit the patient was noted to have a complex fluid collection in the left pelvis. At that time the patient was ultimately transfer red to [facility] for interventional radiology drainage. According to the patient and her daughter she did have this drained and she had percutaneous drains in place for several days and was ultimately discharged home on antibiotics. Records indicate, however, that the fluid collection contained malignant cells. Cultures from the fluid collection actually showed no growth. Since this admission at [facility] the patient has had some ongoing abdominal pain but has not had any nausea or vomiting until January 22 when she represented to the ER and was treated and released, Upon ER presentation the patient underwent CT scan of the abdomen and pelvis. This demonstrated a small bowel obstruction secondary to a 14 cm spiculated mass. This mass is the same fluid collection that was treated in November at [facility]. The patient refuses NG tube at this present time and surgery deemed her not a surgical candidate. Principal Diagnosis 1. Small bowel obstruction secondary to large intra-abdominal complex fluid collection containing malignant colon cancer cells 2. Transition to comfort care due to refractoriness of #1, with ultimate passing on 02/11/21 at 1534 Discharge Exam At time of pronouncement - Pupils fixed & dilated; no response to pain or voice or touch; no audible heart tones; no spontaneous respiratory effort; no palpable pulse. Discharge Data Allergies Allergy/AdvReac Type Severity Reaction Status Date / Time metoprolol Allergy Severe Anaphylaxis Verified 02/02/21 16:49 erythromycin base Allergy Unknown PT UNSURE Verified 02/02/21 16:15 nifedipine Allergy Unknown EXACERBATION Verified 02/02/21 16:15 INTERSTITIAL CYCSTITIS nitrofurantoin Allergy Unknown RASH Verified 02/02/21 16:15 quinine Allergy Unknown PT UNSURE Verified 02/02/21 16:15 Sulfa (Sulfonamide Allergy Unknown RASH Verified 02/02/21 16:15 Antibiotics) azithromycin [From Zithromax] AdvReac Intermediate Rash Verified 02/02/21 16:15 bexarotene AdvReac Intermediate n/v Verified 02/02/21 16:15 Beta-Blockers AdvReac Mild "Secondary Verified 02/02/21 16:15 (Beta-Adrenergic Bloc AVB" ciprofloxacin AdvReac Unknown GI SYMPTOMS Verified 02/02/21 16:15 hydralazine AdvReac Unknown dysuria Verified 02/02/21 16:15 hydrochlorothiazide AdvReac Unknown Rash Verified 02/02/21 16:15 hydrocodone AdvReac Unknown GI UPSET Verified 02/02/21 16:15 lisinopril AdvReac Unknown "INTOLERANCE" Verified 02/02/21 16:[address] COLON losartan AdvReac Unknown JITTERY,SHA Verified 02/02/21 16:15 DOHERTY meperidine AdvReac Unknown GI UPSET Verified 02/02/21 16:15 methenamine AdvReac Unknown HX STOMACH Verified 02/02/21 16:15 PAIN- SEE NOTES metronidazole AdvReac Unknown STOMACH Verified 02/02/21 16:15 PAIN Phenothiazines AdvReac Unknown SHAKEY Verified 02/02/21 16:15 prochlorperazine AdvReac Unknown "BODY Verified 02/02/21 16:15 SHAKES" Quinolones AdvReac Unknown CIPRO- Verified 02/02/21 16:15 NAUSEA, NERVOUS, CHILLS simvastatin AdvReac Unknown STOMACH Verified 02/02/21 16:15 PAIN spironolactone AdvReac Unknown RECTAL Verified 02/02/21 16:15 PRESSURE, PAIN terazosin AdvReac Unknown LIGHTHEADEDNESS Verified 02/02/21 16:15 AND NAUSEA valdecoxib AdvReac Unknown GI SYMPTOMS Verified 02/02/21 16:15 clindamycin AdvReac Unknown Verified 02/02/21 16:15 Quinidine-Quinine Analogues AdvReac Unknown Verified 02/02/21 16:15 ([facility] [place] General Surgery Palliative Care Ordered Studies Abdomen/Pelvis CT 02/02/21 16:[address] WITH IV CONTRAST CT DOSE: 445.31 mGycm HISTORY: Acute left-sided abdominal pain Pt c/o left sided abd pain TECHNIQUE: Multiaxial CT images of the abdomen and pelvis were performed following the IV administration of 89 cc of Optiray, A dose lowering technique was utilized adhering to the principles of ALARA. COMPARISON STUDY: CT abdomen and pelvis 12/08/2020 FINDINGS: Small left and trace right pleural effusions. Chronic interstitial lung disease redemonstrated. The imaged inferior cardiac chambers are unremarkable. No pneumatosis or pneumoperitoneum. Unremarkable spleen and adrenal glands. Mildly distended gallbladder is unchanged mild wall thickening. Unchanged prominence of the extrahepatic biliary tree with the common bile duct measuring up to 8 mm. Mild generalized pancreatic atrophy. There are a few prob able cyst of the right hepatic lobe redemonstrated measuring up to 6 mm. Patency of the hepatic and portal veins. The hepatic dome is not imaged in its entirety. Mildly atrophic left kidney. There are a few subcentimeter right-sided renal hypodensities suggestive of probable cysts. No hydronephrosis. Unremarkable urinary bladder and uterus. Extensive calcified plaque of the abdominal aorta without aneurysm. Chronic occlusion of the right common iliac artery. Reconstitution of flow within the internal and external iliac arteries. No adenopathy. The appendix is fluid-filled and measures 7 mm, similar to comparison. No associated inflammation. Postoperative changes of the bowel redemonstrated which includes prior left colon resection with right lower quadrant colostomy. Numerous small bowel anastomoses. There is a multilocular septated hypodense mass/fluid collection within the abdominal left lower quadrant measuring 10.3 x 7.6 x 14 cm, previously measured at 9.3 x 7.3 x 14 cm and again noted to involve the small bowel anastomosis. There is discontinuity of the bowel wall at the anastomosis suggestive of a contained perforation with invasion/extension into the left psoas and iliacus musculature. A fistulous tract is again noted extending with the adjacent sigmoid colon. This involves multiple loops of adjacent small bowel. Dilated loops of small bowel central abdomen with air- fluid levels. There is focal wall thickening of the small bowel with transition point upstream to the anastomosis and the abdominal left lower quadrant on image 208 series 3. Hypodense lesions/flexion of the left abdominal wall measures 1.9 x 1.4 x 2.8 cm and is contiguous with a subcutaneous scar. This appears similar to comparison. Unremarkable soft tissues. Demineralized appearance of the bones. Unchanged numerous compression deformities of the thoracolumbar spine. IMPRESSION: 1. Dilated air and fluid-filled loops of small bowel within the central abdomen with focal wall thickening and transition point within the abdominal left lower quadrant upstream to the small bowel anastomosis is suggestive of small bowel obstruction. 2. Complex multilocular septated hypodense mass/fluid collection within the abdominal left lower quadrant involving the small bowel anastomosis with invasion into the left psoas and iliacus muscles appears similar to comparison measuring up to 14 cm. 3. 2.8 cm lesion/collection of the left abdominal wall also appears similar to comparison and may reflect a complex seroma. 4. Unchanged gallbladder distention with wall thickening. 5. Small left and trace right pleural effusions. 6. Additional findings as above. ACT 112: Negative or not required by law. The above report was generated using voice recognition software. It may contain grammatical, syntax or spelling errors. Electronically signed by: David Lovett M.D. 02/02/2021 6:53 PM KUB X-Ray 02/03/21 08:44 KUB HISTORY: Follow up study in a patient with small bowel obstruction SBO COMPARISON: CT abdomen pelvis 02/02/2021 FINDINGS: There is persistent small bowel distention of the central abdomen with small bowel loops measuring up to 4.7 cm transversely. Surgical suture material an surgical clips of the abdomen. Right lower quadrant colostomy. No renal calculi. No ureteral calculi. No pneumoperitoneum or pneumatosis. Demineralized appearance the bones with degenerative changes of the spine, pelvis and hips. No fracture. Chronic interstitial lung disease. IMPRESSION: Persistent small bowel obstruction without pneumoperitoneum. ACT 112: Negative or not required by law. The above report was generated using voice recognition software. It may contain grammatical, syntax or spelling errors. Electronically signed by: David Lovett M.D. 02/03/2021 12:04 PM Hospital Course (1) Palliative care patient: Following admission the patient was treated conservatively for her SBO with bowel rest, IV pain meds, IV fluids, and anti-emetics. Her symptoms and SBO were refractory to these measures. Even when her symptoms were at their worst she still declined NG tube placement. From the onset general surgery told her she was not a surgical candidate for exploratory surgery for the SBO. Several discussions were held with her and her children in light of her declining status and poor prognosis. Ultimately a decision was made to stop medical care and transition her to full comfort care measures. A comfort care pathway was initiated on 02/06/2021. From then until her passing on 02/11/21 the focus was on pain control and prevention of nausea/emesis. She peacefully on 02/11/21 in the presence of her children. (2) Small bowel obstruction: 2nd intra-abdominal fluid mass/fluid collection. (3) Intra-abdominal fluid collection: 14cm in size. Fluid collection was malignant in nature. (4) Colon cancer metastasized to multiple sites: Initial diagnosis of colon cancer - 2016. Had chronic colostomy. Ultimately developed a large, complex multilocular septated hypodense mass/fluid collection within the abdominal left lower quadrant in 2020. This involved the small bowel anastomosis with invasion into the left psoas and iliacus muscles (14cm in size). This was the cause of her SBO. (5) PAF (paroxysmal atrial fibrillation): (6) Prediabetes: (7) Chronic kidney disease, stage IV (severe): baseline CrCl upper 20s (8) Hypertension: (9) Chronic diastolic CHF (congestive heart failure): Total Time Total Time Spent Total Time Spent (In Minutes): 25 Total Time Includes: Examination of the Patient Discharge Plan Discharge Items Patient Disposition: Coding Level of Care Code D/C Day Management <30 mins Diagnoses Palliative care patient Z51.5 Small bowel obstruction K56.609 Intra-abdominal fluid collection R18.8 Colon cancer metastasized to multiple sites C18.9 PAF (paroxysmal atrial fibrillation) I48.0 Prediabetes R73.03 Chronic kidney disease, stage IV (severe) N18.4 Hypertension I10 Hypertension type: essential hypertension Chronic diastolic CHF (congestive heart failure) I50.32
== END 2021-02-11 17:50 | disposition expired | DRG 375 ==
LOC: ED 15:51 → SUATTDRO 20:52 → 2W 20:52 → 2S 02-05 11:59 → 3W 02-06 20:12